=== PATIENT | female | born 1985 | race Hispanic/Latino ===

== ENCOUNTER 2018-06-16 13:51 | Emergency (ER) | payer SELFPAY ==
[~2018-06-16] VITALS: Ht 157.5 cm; Wt 89.8 kg
[2018-06-16] MEDS ORDERED: KETOROLAC TROMETHAMINE 30 MG/ML VIAL IV STA (14:29)
[2018-06-16] MEDS ORDERED: SODIUM CHLORIDE 0.9% 1000ML 1,000 ML IV STA (14:29)
[2018-06-16] MEDS ORDERED: DIPHENHYDRAMINE HCL INJ 50 MG/ML VIAL IV ONE (14:30)
[2018-06-16] MEDS ORDERED: FIORINAL 50-321 EACH PO (14:47)
[2018-06-16 14:51] LABS: BASOPHILS % 0.4 % (0.0-1.0); EOSINOPHILS # (AUTO) 0.2 (0.0-0.4); EOSINOPHILS % 2.6 % (0.0-6.0); HEMATOCRIT 34.8 % (34.2-44.1); HEMOGLOBIN 10.9 g/dL (12.0-16.0); LYMPHOCYTES # (AUTO) 2.5 (1.0-3.2); LYMPHOCYTES % 31.3 % (18.0-39.1); MEAN CORPUSCULAR HEMOGLOBIN 24.9 pg (28-32); MEAN CORPUSCULAR HGB CONC 31.3 g/dL (31-35); MEAN CORPUSCULAR VOLUME 79.5 fL (81-99); MONOCYTES # (AUTO) 0.4 (0.2-0.8); MONOCYTES % 4.8 % (4.4-11.3); NEUTROPHILS # (AUTO) 4.8 (2.1-6.9); NEUTROPHILS % 60.5 % (38.7-80.0); PLATELET COUNT 350 x10e3/uL (140-360); RED BLOOD COUNT 4.38 x10e6/uL (3.6-5.1); RED CELL DISTRIBUTION WIDTH 14.6 % (11.7-14.4)
[2018-06-16 15:05] LABS: CLARITY,URINE CLEAR (CLEAR); COLOR,URINE YELLOW (YELLOW)
[2018-06-16 15:06] LABS: BILIRUBIN,URINE NEGATIVE (NEGATIVE); KETONES,URINE NEGATIVE (NEGATIVE); LEUKOCYTE ESTERASE ,URINE NEGATIVE (NEGATIVE); NITRITE,URINE NEGATIVE (NEGATIVE); PROTEIN,URINE DIPSTICK NEGATIVE (NEGATIVE); URINE UROBILINOGEN 0.2 mg/dL (0.2 - 1)
[2018-06-16 15:09] LABS: BACTERIA,URINE FEW /HPF; EPITHELIAL CELLS,URINE FEW /LPF; WBC,URINE (MAN) 0-5 /HPF (0-5)
[2018-06-16 15:41] LABS: ANION GAP 7.9 mmol/L (8-16); BLOOD UREA NITROGEN 12 mg/dL (7-26); BUN/CREATININE RATIO 16 (6-25); CALCIUM 9.4 mg/dL (8.4-10.2); CARBON DIOXIDE 28 mmol/L (22-29); CHLORIDE 107 mmol/L (98-107); CREATININE, SERUM 0.73 mg/dL (0.57-1.11); EST GLOMERULAR FILTRATION RATE > 60 ML/MIN (60-); GLUCOSE 142 mg/dL (74-118); MAGNESIUM 1.7 MG/DL (1.3-2.1); POTASSIUM 3.9 mmol/L (3.5-5.1); SODIUM 139 mmol/L (136-145)
--- NOTE | 2018-06-16 15:45 | Diagnostic Imaging Report ---
History:Headaches Comparison studies: None Technique: Axial images were obtained from the skull base to the vertex. Coronal and sagittal reconstructions obtained from the axial data. Dose modulation, iterative reconstruction, and/or weight based adjustment of the mA/kV was utilized to reduce the radiation dose to as low as reasonably achievable. Findings: Scalp/skull: No abnormalities. No fractures, blastic or lytic lesions. Extra-axial spaces: No masses. No fluid collections. Brain sulci: Appropriate for age. Ventricles: Normal in size and configuration. No hydrocephalus. Parenchyma: No abnormal densities. No masses, hemorrhage, acute or chronic cortical vascular insults. Sellar/suprasellar region: No abnormalities Craniocervical junction: Patent foramen magnum. No Chiari one malformation. IMPRESSION: No abnormalities . Signed by: DR Ronen Bailey M.D. on 06/16/2018 3:42 PM
[2018-06-16] MEDS ORDERED: METFORMIN HCL500 MG PO (16:22)
--- OUTSIDE RECORDS SUMMARY | 2018-06-25 11:31 | XMS REPORT | CCD ---
Author Author Auto Generated Organization [facility] Address Unknown Phone Unavailable Care Team Providers Care Carpet Inspector Finished Name Role Phone Ac Sanders CP Allergies, Adverse Reactions, Alerts Substance Reaction Status Cipro Active erythromycin Active hydrocodone Active NKDA Canceled Phenergan Active Stadol Active Medications Medication Instructions Start Date End Date Status Saline Flush 0.9% 5 ml, Route: IVP, PRN, PRN Line 11/10/2011 11/10/2011 Discontinued Flush, Start date: 11/10/11 22:05:00, Duration: 24 hr, Stop date: 11/11/11 22:04:00 Ultram 50 mg oral 1 - 2 tabs, PO, Q4-6H, PRN, 30 tab, 11/10/2011 Ordered tablet as needed for pain, Substitution Allowed Ultram 50 mg oral 50 mg, 1 tab, Route: PO, Drug form: 11/10/2011 11/11/2011 Discontinued tablet TAB, Q4H, PRN Pain, Start date: 11/10/11 21:59:00, Duration: 30 day, Stop date: 12/10/11 21:58:00 DuoNeb inhalation 3 ml, Route: INHALATION, Drug Form: 11/10/2011 11/11/2011 Discontinued solution SOLN, QID, PRN See Respiratory Notes, Start date: 11/10/11 23:16:00, Duration: 30 day, Stop date: 12/10/11 23:15:00, once Motrin Route: PO, ONCE, Start date: 11/10/2011 11/10/2011 Completed 11/10/11 23:15:00, Stop date: 11/10/11 23:15:00 DuoNeb inhalation 3 ml, INHALATION, QID, PRN, 30 ea, 11/10/2011 Ordered solution as needed for shortness of breath or wheezing, Substitution Allowed, Maintenance, SOLN Vital Signs Most recent to oldest [Reference Range]: 1 Height 160.02 cm (11/10/2011 20:42:00) Weight 95.455 kg (11/10/2011 20:42:00)
--- OUTSIDE RECORDS SUMMARY | 2018-06-25 11:31 | XMS REPORT | Continuity of Care Document ---
Author Author Enma [facility] Interface Address Unknown Phone Unavailable Problems Problem Status Onset Date Classification Date Reported Comments Source Discharge Diagnosis: Acute chest pain 07/30/2017 08/02/2017 [facility] Discharge Diagnosis: Heart palpitations 07/30/2017 08/02/2017 [facility] ABD PAIN-11 WEEKS Active 10/24/2016 [facility] Discharge Diagnosis: Acute UTI 09/21/2016 09/24/2016 [facility] Discharge Diagnosis: Abdominal pain affecting 09/21/2016 09/24/2016 [facility] ABDOMINAL PAIN Active 09/21/2016 [facility] Discharge Diagnosis: First trimester bleeding 09/16/2016 09/19/2016 [facility] Discharge Diagnosis: Threatened miscarriage 09/16/2016 09/19/2016 [facility] OB 6 WKS/VAG BLEEDING Active 09/16/2016 [facility] Discharge Diagnosis: Hyperglycemia 07/13/2016 07/16/2016 [facility] Discharge Diagnosis: Atypical chest pain 07/13/2016 07/16/2016 [facility] Discharge Diagnosis: Acute lower UTI 07/13/2016 07/16/2016 [facility] Discharge Diagnosis: Dizziness 07/13/2016 07/16/2016 [facility] DIZZINESS Active 07/12/2016 [facility] Discharge Diagnosis: Chest pain 07/07/2016 07/10/2016 [facility] Discharge Diagnosis: Near syncope 07/07/2016 07/10/2016 [facility] Discharge Diagnosis: Anemia 07/07/2016 07/10/2016 [facility] Discharge Diagnosis: Acute hypokalemia 07/07/2016 07/10/2016 [facility] DIZZY/CHEST PAIN Active 07/07/2016 [facility] Discharge Diagnosis: Shortness of breath 06/19/2016 06/22/2016 [facility] ASTMAH Active 06/19/2016 [facility] Discharge Diagnosis: Anxiety 06/18/2016 06/21/2016 [facility] Discharge Diagnosis: Asthma 06/18/2016 06/21/2016 [facility] SHORTNESS OF BREATH Active 06/18/2016 [facility] Discharge Diagnosis: Urinary tract infection, site not specified 05/25/2016 05/28/2016 [facility] Discharge Diagnosis: UTI 04/20/2016 04/23/2016 [facility] Discharge Diagnosis: Heat exhaustion 04/20/2016 04/23/2016 [facility] Discharge Diagnosis: Dehydration 04/18/2016 04/22/2016 [facility] Discharge Diagnosis: Heat exhaustion, unspecified, initial encounter 04/18/2016 04/22/2016 [facility] HEAT EXHAUSTION Active 04/18/2016 [facility] ABD PAIN Active 03/21/2016 [facility] INTRACTABLE ABDOMINAL PAIN, GBW THICKENI Active 12/02/2015 [facility] STOMACH PAIN Active 12/02/2015 [facility] Discharge Diagnosis: Lower abdominal pain, unspecified 11/10/2015 11/13/2015 [facility] EXPOSURE Active 10/16/2015 [facility] PELVIC PAIN Active 10/06/2015 [facility] SOB Active 09/21/2015 [facility] Discharge Diagnosis: Acute lower UTI 06/11/2015 06/14/2015 [facility] Discharge Diagnosis: Pharyngitis, acute 05/14/2015 05/17/2015 [facility] FEVER Active 05/14/2015 [facility] Discharge Diagnosis: Abdominal pain 04/21/2015 04/24/2015 [facility] Discharge Diagnosis: Bacterial vaginosis 04/19/2015 04/22/2015 [facility] Discharge Diagnosis: Urinary tract infection 04/19/2015 04/22/2015 [facility] Discharge Diagnosis: Pelvic pain in female 04/19/2015 04/22/2015 [facility] SYMPTOMS/ECTOPIC PREG Active 04/18/2015 [facility] SYNCOPE Active 03/16/2015 [facility] Discharge Diagnosis: Acute pelvic pain, female 03/09/2015 03/13/2015 [facility] Discharge Diagnosis: Acute pelvic inflammatory disease 03/09/2015 03/13/2015 [facility] Discharge Diagnosis: Dizziness 03/09/2015 03/13/2015 [facility] Discharge Diagnosis: Acute back pain 11/04/2014 11/06/2014 [facility] Discharge Diagnosis: Nausea 11/04/2014 11/06/2014 [facility] Discharge Diagnosis: UTI 10/30/2014 11/01/2014 [facility] Discharge Diagnosis: Diarrhea 10/30/2014 11/01/2014 [facility] DIARRHEA Active 10/30/2014 [facility] Discharge Diagnosis: Near syncope 06/23/2014 06/26/2014 [facility] Discharge Diagnosis: Acute lower UTI 06/23/2014 06/26/2014 [facility] Discharge Diagnosis: Acute otitis externa 06/23/2014 06/26/2014 [facility] WEAKNESS/CHEST PAIN Active 06/23/2014 [facility] Discharge Diagnosis: Asthma exacerbation 06/10/2014 06/13/2014 [facility] Discharge Diagnosis: Upper respiratory infection 06/10/2014 06/13/2014 [facility] DIFFICULTY BREATHING Active 06/10/2014 [facility] ABD PAIN/ LOWER BACK PAIN Active 07/08/2012 [facility] RIGHT SIDEPAIN Active 04/22/2012 [facility] ABD PAIN-LOWER Active 04/16/2012 [facility] OVARIAN CYST Active 04/15/2012 [facility] ADBOMINAL PAIN Active 10/15/2011 [facility] TROUBLE BREATHING Active 08/02/2011 [facility] Ectopic Resolved Problem 10/27/2016 [facility] Asthma Active Problem 08/02/2017 [facility] Bronchitis Resolved Problem 08/02/2017 [facility] Diabetes Resolved Problem 08/02/2017 [facility] Diverticulosis Resolved Problem 08/02/2017 [facility] Ectopic Resolved Problem 08/02/2017 [facility] Depression Resolved Problem 08/02/2017 [facility] Obesity Active Problem 12/10/2015 [facility] Asthma Active Problem 12/10/2015 [facility] Type 2 diabetes mellitus without complications Active Problem 12/10/2015 [facility] Fatty liver Active Problem 12/10/2015 [facility] GENERALIZED ABDOMINAL PAIN Active [facility] Medications Medication Details Route Status Patient Instructions Ordering Provider Order Date Source ferrous sulfate 325 mg, 1 tab, Route: PO, Drug form: ECTAB, TID, Dosing Weight 90, kg, Start date: 07/31/17 9:00:00 [employer], Duration: 30 day, Stop date: 08/30/17 8:59:00 CSTNotes: Give with food. "Do Not Crush" No Longer Active 07/31/2017 [facility] Aspirin 325 MG Enteric Coated Tablet 325 mg, 1 tab, Route: PO, Drug form: ECTAB, Daily, Dosing Weight 90, kg, Start date: 07/31/17 9:00:00 [employer]IST, Duration: 30 day, Stop date: 08/30/17 8:59:00 CSTNotes: (Do Not Crush) Do not crush or chew. No Longer Active 07/31/2017 [facility] Metformin 500 mg, 1 tab, Route: PO, Drug form: TAB, Daily, Dosing Weight 90, kg, Start date: 07/31/17 9:00:00 [employer]IST, Duration: 30 day, Stop date: 08/30/17 8:59:00 CSTNotes: (Same as: Glucophage) Take with meal No Longer Active 07/31/2017 [facility] Saline Flush 0.9% 10 ml, Route: IVP, Drug Form: INJ, Dosing Weight 90, kg, Q12H, Start date: 07/30/17 21:00:00 [employer]IST, Duration: 30 day, Stop date: 08/29/17 20:59:00 CSTNotes: (Same as: BD Posiflush) Inactive 07/31/2017 [facility] Alprazolam 0.25 MG Oral Tablet [Xanax] 0.25 mg, 1 tab, Route: PO, Drug form: TAB, TID, Dosing Weight 90, kg, PRN Anxiety, Start date: 07/30/17 17:54:00 [employer]IST, Duration: 30 day, Stop date: 08/29/17 17:53:00 CSTNotes: With food or milk (Same as: Xanax) Inactive 07/30/2017 [facility] Insulin Lispro 4 unit, 0.04 mL, Route: SUB-Q, Drug form: SOLN, Bedtime, Dosing Weight 90, kg, PRN Blood Glucose Results, Start date: 07/30/17 12:09:00 [employer]IST, Duration: 30 day, Stop date: 08/29/17 12:08:00 CSTNotes: Roll in palms of hands gently; Do not shake `vigorously. (Same as: Humalog ) "Single Patient Use Only " WASTE: F/P - Black; E - Municipal Trash Bin Stable for 28 days at room temperature. Expires in days from Date Inactive 07/30/2017 [facility] Glucagon 1 mg, Route: IM, Drug form: PDR/INJ, PRN, Dosing Weight 90, kg, PRN Blood Glucose Results, Start date: 07/30/17 12:09:00 [employer]IST, Duration: 30 day, Stop date: 08/29/17 12:08:00 MARK[employer] SPECIALIST Inactive 07/30/2017 [facility] Dextrose 50% Syringe 25 gm, 50 mL, Route: IVP, Drug Form: INJ, Dosing Weight 90, kg, PRN, PRN Blood Glucose Results, Start date: 07/30/17 12:09:00 [employer]IST, Duration: 30 day, Stop date: 08/29/17 12:08:00 MARK[employer]ING [employer]PERATIONS SPECIALIST Inactive 07/30/2017 [facility] Saline Flush 0.9% 10 ml, Route: IVP, Drug Form: INJ, Dosing Weight 90, kg, PRN, PRN Line Flush, Start date: 07/30/17 11:57:00 MARK[employer] SPECIALIST, Duration: 30 day, Stop date: 08/29/17 11:56:00 CSTNotes: (Same as: BD Posiflush) Inactive 07/30/2017 [facility] Morphine 2 mg, 0.5 mL, Route: IVP, Drug form: SOLN, Q15Min, Dosing Weight 90, kg, PRN Chest Pain, Start date: 07/30/17 11:57:00 [employer]IST, Duration: 2 doses or times, Stop date: Limited # of timesNotes: (Same as:MO RPhine Sulfate) Inactive 07/30/2017 [facility] Nitroglycerin 0.4 mg, 1 tab, Route: SL, Drug form: TAB, Q5Min, Dosing Weight 90, kg, PRN Chest Pain, Start date: 07/30/17 11:57:00 [employer]IST, Duration: 3 doses or times, Stop date: Limited # of timesNotes: (Same as:Nitr oquick, Nitrostat) "Do Not Crush" Sublingual tablet Inactive 07/30/2017 [facility] Ondansetron 4 mg, 2 mL, Route: IVP, Drug form: INJ, Q8H, Dosing Weight 90, kg, PRN Nausea & Vomiting, Start date: 07/30/17 11:57:00 [employer]IST, Duration: 30 day, Stop date: 08/29/17 11:56:00 CSTNotes: (Same as: Zofran) MEDICATION WASTE Product Size: 4 mg Product Wasted: _0__ mg Inactive 07/30/2017 [facility] BD Normal Saline Flush 25 mL, Route: IV, Drug Form: INJ, PRN, PRN Line Flush, Start date: 07/30/17 9:18:00 [employer]IST, Duration: 30 day, Stop date: 08/29/17 9:17:00 CSTNotes: (Same as: BD Posiflush) Inactive 07/30/2017 [facility] Saline Flush 0.9% 10 mL, Route: IVP, Drug Form: INJ, Dosing Weight 90, kg, PRN, PRN Line Flush, Start date: 07/30/17 9:11:00 MARK[employer]ING [employer]ATIONS SPECIALIST, Duration: 30 day, Stop date: 08/29/17 9:10:00 CSTNotes: (Same as: BD Posiflush) Inactive 07/30/2017 [facility] Sodium Chloride 0.9% (Bolus) IV 1,000 mL, 1000 ml/hr, Infuse Over: 1 hr, Route: IV, 1,000, Drug form: INJ, ONCE, Priority: STAT, Dosing Weight 90 kg, Start date: 07/30/17 9:11:00 MARK[employer]ATIONS SPECIALIST, Stop date: 07/30/17 9:11:00 MARK[employer]ING [employer]PERATIONS SPECIALIST Inactive 07/30/2017 [facility] Saline Flush 0.9% 10 mL, Route: IVP, Drug Form: INJ, Dosing Weight 97.727, kg, PRN, PRN Line Flush, Start date: 10/24/16 0:48:00 MARK[employer] SPECIALIST, Duration: 30 day, Stop date: 11/23/16 1:47:00 CDTNotes: (Same as: BD Posiflush) Inactive 10/24/2016 [facility] Tylenol 650 mg, 2 tab, Route: PO, Drug form: TAB, ONCE, Dosing Weight 93.636, kg, Priority: STAT, Start date: 09/21/16 14:28:00 MARK[employer]ATIONS SPECIALIST, Stop date: 09/21/16 14:28:00 CSTNotes: Do not exceed 4 gm/day. (Same as: Tylenol) Inactive 09/21/2016 [facility] Ceftriaxone 1 gm, Route: IVPB, ONCE, Dosing Weight 93.636, kg, Priority: STAT, Start date: 09/21/16 13:46:00 MARK[employer] SPECIALIST, Stop date: 09/21/16 13:46:00 CSTNotes: (Same As: Rocephin). Use with 100 mL NS and infuse over 30 m in MEDICATION WASTE Product Size: 1000 mg Product Wasted: ___ mg Inactive 09/21/2016 [facility] Albuterol 0.833 MG/ML / Ipratropium [place]wood 0.167 MG/ML Inhalant Solution 3 mL, Route: NEB, Drug Form: SOLN, Dosing Weight 93.636, kg, ONCE, STAT, Start date: 09/21/16 12:44:00 MARKETING [employer]PERATIONS SPECIALIST, Stop date: 09/21/16 12:44:00 CSTNotes: (Same as: Duoneb) Inactive 09/21/2016 [facility] Sodium Chloride 0.154 MEQ/ML Injectable Solution 1,000 mL, 1,000 ml/hr, Infuse Over: 1 hr, Route: IV, 1,000, Drug form: INJ, ONCE, Priority: STAT, Dosing Weight 93.636 kg, Start date: 09/21/16 12:43:00 MARKETING [employer]PERATIONS SPECIALIST, Duration: 1 doses or times, Stop date: 09/21/16 12:43:00 MARKETING OPERATIONS SPECIALIST Inactive 09/21/2016 [facility] Saline Flush 0.9% 10 mL, Route: IVP, Drug Form: INJ, Dosing Weight 93.636, kg, PRN, PRN Line Flush, Start date: 09/21/16 12:43:00 MARKETING [employer]PERATIONS SPECIALIST, Duration: 30 day, Stop date: 10/21/16 12:42:00 CSTNotes: (Same as: BD Posiflush) Inactive 09/21/2016 [facility] Cephalexin 500 MG Oral Capsule [Keflex] 500 mg=1 cap, PO, BID, X 7 day, # 14 cap, 0 Refill(s) Active 09/16/2016 [facility] Sodium Chloride 0.154 MEQ/ML Injectable Solution 1,000 mL, Infuse Over: 1 hr, Route: IV, ONCE, Priority: STAT, Dosing Weight 94.545 kg, Start date: 09/16/16 15:41:00 [employer]ATIONS SPECIALIST, Duration: 1 doses or times, Stop date: 09/16/16 15:41:00 MARKETING [employer]PERATIONS SPECIALIST Inactive 09/16/2016 [facility] Nitrofurantoin 100 MG Oral Capsule [Macrobid] 100 mg=1 cap, PO, BID, X 3 day, # 6 cap, 0 Refill(s) Active 07/13/2016 [facility] Ativan 0.5 mg, Route: IVP, Drug form: INJ, ONCE, Dosing Weight 97.727, kg, Priority: STAT, Start date: 07/13/16 1:39:00 CDT, Stop date: 07/13/16 1:39:00 CDT Inactive 07/13/2016 [facility] Sodium Chloride 0.154 MEQ/ML Injectable Solution 1,000 mL, 2,000 ml/hr, Infuse Over: 30 minutes, Route: IV, ONCE, Priority: STAT, Dosing Weight 97.727 kg, Start date: 07/13/16 1:39:00 CDT, Duration: 1 doses or times, Stop date: 07/13/16 1:39:00 CDT Inactive 07/13/2016 [facility] Saline Flush 0.9% 10 mL, Route: IVP, Drug Form: INJ, Dosing Weight 97.727, kg, PRN, PRN Line Flush, Start date: 07/12/16 23:59:00 CDT, Duration: 30 day, Stop date: 08/11/16 22:58:00 CSTNotes: (Same as: BD Posiflush) No Longer Active 07/13/2016 [facility] ferrous sulfate 325 mg oral enteric coated tablet 325 mg=1 tab, PO, TID, Start with 1 tab daily x 3 days, advance as tolerate, use stool softners and laxatives as needed for constipation, # 90 tab, 3 Refill(s) Active 07/07/2016 [facility] Sodium Chloride 0.154 MEQ/ML Injectable Solution 500 mL, 500 ml/hr, Infuse Over: 1 hr, Route: IV, ONCE, Priority: STAT, Dosing Weight 97.727 kg, Start date: 07/07/16 17:55:00 CDT, Duration: 1 doses or times, Stop date: 07/07/16 17:55:00 CDT Inactive 07/07/2016 [facility] potassium chloride 40 mEq, Route: PO, Drug form: ERTAB, ONCE, Dosing Weight 97.727, kg, Priority: STAT, Start date: 07/07/16 17:47:00 CDT, Stop date: 07/07/16 17:47:00 CDT Inactive 07/07/2016 [facility] Saline Flush 0.9% 10 mL, Route: IVP, Drug Form: INJ, Dosing Weight 97.727, kg, PRN, PRN Line Flush, Start date: 07/07/16 16:52:00 CDT, Duration: 30 day, Stop date: 08/06/16 15:51:00 CSTNotes: (Same as: BD Posiflush) Inactive 07/07/2016 [facility] Albuterol 0.833 MG/ML / Ipratropium [place] 0.167 MG/ML Inhalant Solution 3 mL, Route: NEB, Drug Form: SOLN, Dosing Weight 97.727, kg, ONCE, STAT, Start date: 06/19/16 19:22:00 CDT, Stop date: 06/19/16 19:22:00 CDTNotes: (Same as: Duoneb) Inactive 06/20/2016 [facility] Albuterol 0.833 MG/ML / Ipratropium [place]wood 0.167 MG/ML Inhalant Solution [DuoNeb] 3 ml, Route: NEB, Drug Form: SOLN, Dosing Weight 97.727, kg, PRN, PRN Respiratory Protocol, Start date: 06/19/16 15:29:00 CDT, Duration: 30 day, Stop date: 07/19/16 14:28:00 CSTNotes: (Same as: Duoneb) Inactive 06/19/2016 [facility] Albuterol 0.833 MG/ML / Ipratropium [place]wood 0.167 MG/ML Inhalant Solution 3 mL, Route: NEB, Drug Form: SOLN, Dosing Weight 97.727, kg, ONCE, STAT, Start date: 06/18/16 21:39:00 CDT, Stop date: 06/18/16 21:39:00 CDTNotes: (Same as: Duoneb) Inactive 06/19/2016 [facility] Saline Flush 0.9% 10 mL, Route: IVP, Drug Form: INJ, Dosing Weight 97.727, kg, PRN, PRN Line Flush, Start date: 06/18/16 20:18:00 CDT, Duration: 30 day, Stop date: 07/18/16 19:17:00 CSTNotes: (Same as: BD Posiflush) No Longer Active 06/19/2016 [facility] Nitrofurantoin 100 MG Oral Capsule [Macrobid] 100 mg=1 cap, PO, BID, X 10 day, # 20 cap, 0 Refill(s) Active 05/25/2016 [facility] Zofran 4 mg, Route: IVP, Drug form: INJ, ONCE, Dosing Weight 97.727, kg, Priority: STAT, Start date: 05/25/16 8:36:00 CDT, Stop date: 05/25/16 8:36:00 CDT Inactive 05/25/2016 [facility] Sodium Chloride 0.154 MEQ/ML Injectable Solution 1,000 mL, 1,000 ml/hr, Infuse Over: 1 hr, Route: IV, ONCE, Priority: STAT, Dosing Weight 97.727 kg, Start date: 05/25/16 8:07:00 CDT, Duration: 1 doses or times, Stop date: 05/25/16 8:07:00 CDT Inactive 05/25/2016 [facility] Cephalexin 500 MG Oral Capsule [Keflex] 500 mg=1 cap, PO, BID, X 7 day, # 14 cap, 0 Refill(s) Active 04/20/2016 [facility] Sodium Chloride 0.154 MEQ/ML Injectable Solution 1,000 mL, 2,000 ml/hr, Infuse Over: 30 minutes, Route: IV, ONCE, Priority: STAT, Dosing Weight 100 kg, Start date: 04/20/16 3:26:00 CDT, Duration: 1 doses or times, Stop date: 04/20/16 3:26:00 CDT Inactive 04/20/2016 [facility] Zofran 4 mg, Route: IVP, Drug form: INJ, ONCE, Dosing Weight 100, kg, Priority: STAT, Start date: 04/20/16 2:43:00 CDT, Stop date: 04/20/16 2:43:00 CDT Inactive 04/20/2016 [facility] Sodium Chloride 0.154 MEQ/ML Injectable Solution 1,000 mL, 2,000 ml/hr, Infuse Over: 30 minutes, Route: IV, ONCE, Priority: STAT, Dosing Weight 100 kg, Start date: 04/20/16 2:26:00 CDT, Duration: 1 doses or times, Stop date: 04/20/16 2:26:00 CDT Inactive 04/20/2016 [facility] Ondansetron 4 mg, 2 mL, Route: IVP, Drug form: INJ, ONCE, Dosing Weight 97.727, kg, Priority: STAT, Start date: 04/18/16 19:46:00 CDT, Stop date: 04/18/16 19:46:00 CDTNotes: (Same as: Zofran) MEDICATION WASTE Product Size: 4 mg Product Wasted: __0_ mg Inactive 04/19/2016 [facility] Saline Flush 0.9% 10 mL, Route: IVP, Drug Form: INJ, Dosing Weight 97.727, kg, PRN, PRN Line Flush, Start date: 04/18/16 19:46:00 CDT, Duration: 30 day, Stop date: 05/18/16 19:45:00 CDTNotes: (Same as: BD Posiflush) No Longer Active 04/19/2016 [facility] Sodium Chloride 0.154 MEQ/ML Injectable Solution 1,000 mL, 1000 ml/hr, Infuse Over: 1 hr, Route: IV, 1,000, Drug form: INJ, ONCE, Priority: STAT, Dosing Weight 97.727 kg, Start date: 04/18/16 19:46:00 CDT, Duration: 1 doses or times, Stop date: 04/18/16 19:46:00 CDT Inactive 04/19/2016 [facility] cephalexin 500 mg oral tablet 500 mg=1 tab, PO, TID, X 14 day, # 42 tab, 0 Refill(s) Active 03/22/2016 [facility] Ondansetron 4 MG Disintegrating Tablet [Zofran] 4 mg=1 tab, PO, Q8H, PRN Nausea and Vomiting, Dissolve tab under tongue, X 5 day, # 15 tab, 0 Refill(s) Active 03/22/2016 [facility] Tylenol 650 mg, 2 tab, Route: PO, Drug form: TAB, ONCE, Dosing Weight 97.727, kg, Priority: STAT, Start date: 03/21/16 17:37:00 CDT, Stop date: 03/21/16 17:37:00 CDTNotes: Do not exceed 4 gm/day. (Same as: Tylenol) Inactive 03/21/2016 [facility] Rocephin 1 gm, Route: IVPB, ONCE, Dosing Weight 97.727, kg, Priority: STAT, Start date: 03/21/16 17:37:00 CDT, Stop date: 03/21/16 17:37:00 CDTNotes: (Same As: Rocephin). Use with 100 mL NS and infuse over 30 m in MEDICATION WASTE Product Size: 1000 mg Product Wasted: _0_ mg Inactive 03/21/2016 [facility] Saline Flush 0.9% 10 mL, Route: IVP, Drug Form: INJ, Dosing Weight 94.091, kg, PRN, PRN Line Flush, Start date: 03/21/16 15:17:00 CDT, Duration: 30 day, Stop date: 04/20/16 15:16:00 CDTNotes: (Same as: BD Posiflush) Inactive 03/21/2016 [facility] Sodium Chloride 0.154 MEQ/ML Injectable Solution 1,000 mL, 2,000 ml/hr, Infuse Over: 30 minutes, Route: IV, 1,000, Drug form: INJ, ONCE, Priority: STAT, Dosing Weight 94.091 kg, Start date: 03/21/16 15:17:00 CDT, Duration: 1 doses or times, Stop date: 03/21/16 15:17:00 CDT Inactive 03/21/2016 [facility] Protonix 40 mg, 1 tab, Route: PO, Drug form: ECTAB, Daily, Start date: 12/05/15 9:00:00, Duration: 30 day, Stop date: 01/03/16 9:00:00Notes: Tablet should not be chewed or crushed. (Same as: Protonix) Inactive 12/05/2015 [facility] Acetaminophen 300 MG / Codeine Phosphate 60 MG Oral Tablet [Tylenol with Codeine #4] 1 tab, PO, Q6H, PRN pain, X 7 day, # 28 tab, 0 Refill(s) Active 12/04/2015 [facility] Metformin hydrochloride 500 MG Oral Tablet 500 mg, 1 tab, Route: PO, Drug form: TAB, Daily, Dosing Weight 94.091, kg, Start date: 12/04/15 9:00:00, Duration: 30 day, Stop date: 01/02/16 9:00:00Notes: (Same as: Glucophage) Take with meal No Longer Active 12/04/2015 [facility] Albuterol 0.833 MG/ML / Ipratropium [place]wood 0.167 MG/ML Inhalant Solution 3 mL, Route: NEB, Drug Form: SOLN, Dosing Weight 94.091, kg, RQID, Start date: 12/04/15 8:53:00, Duration: 30 day, Stop date: 01/03/16 7:00:00Notes: (Same as: Duoneb) No Longer Active 12/04/2015 [facility] Zofran 4 mg, 2 mL, Route: IV, Drug form: INJ, Q6H, Dosing Weight 94.091, kg, PRN as needed for nausea/vomiting, Start date: 12/04/15 8:53:00, Duration: 30 day, Stop date: 01/03/16 8:52:00Notes: (Same as: Zofran) MEDICATION WASTE Product Size: 4 mg Product Wasted: ___ mg No Longer Active 12/04/2015 [facility] Zosyn 3.375 gm, Route: IVPB, ABXQ8H, Dosing Weight 94.091, kg, Start date: 12/04/15 1:00:00, Duration: 30 day, Stop date: 01/02/16 17:00:00Notes: (Same as: Zosyn) Dosing based on Piperacillin component MEDICATION WASTE Product Size: 3375 mg Product Wasted: ___ mg No Longer Active 12/04/2015 [facility] Saline Flush 0.9% 10 ml, Route: IVP, Drug Form: INJ, Dosing Weight 94.091, kg, PRN, PRN Line Flush, Start date: 12/03/15 23:53:00, Duration: 30 day, Stop date: 01/02/16 23:52:00Notes: (Same as: BD Posiflush) No Longer Active 12/04/2015 [facility] Sodium Chloride 0.154 MEQ/ML Injectable Solution 1,000 mL, Rate: 125 ml/hr, Infuse over: 8 hr, Route: IV, Dosing Weight 94.091 kg, Total Volume: 1,000, Start date: 12/03/15 23:53:00, Duration: 30 day, Stop date: 01/02/16 23:52:00 No Longer Active 12/04/2015 [facility] Morphine 4 mg, 2 mL, Route: IVP, Drug form: INJ, Q4H, Dosing Weight 95.455, kg, PRN Pain Score 7-10, Start date: 12/03/15 23:53:00, Duration: 30 day, Stop date: 01/02/16 23:52:00Notes: (Same as:MORPhine Sulfate) No Longer Active 12/04/2015 [facility] Ondansetron 4 mg, 2 mL, Route: IVP, Drug form: INJ, Q6H, Dosing Weight 94.091, kg, PRN Nausea & Vomiting, Start date: 12/03/15 23:53:00, Duration: 30 day, Stop date: 01/02/16 23:52:00Notes: (Same as: Zofran) MEDICATION WASTE Product Size: 4 mg Product Wasted: ___ mg No Longer Active 12/04/2015 [facility] Diphenhydramine 12.5 mg, 0.25 mL, Route: IVP, Drug form: INJ, Q6H, Dosing Weight 94.091, kg, PRN Itching, Start date: 12/03/15 22:06:00, Duration: 30 day, Stop date: 01/02/16 22:05:00Notes: (Same as: Benadryl) Inactive 12/04/2015 [facility] Ondansetron 4 mg, 2 mL, Route: IVP, Drug form: INJ, ONCE, Dosing Weight 94.091, kg, PRN Nausea & Vomiting, Start date: 12/03/15 22:06:00Notes: (Same as: Zofran) MEDICATION WASTE Product Size: 4 mg Product Wasted: ___ mg Inactive 12/04/2015 [facility] Promethazine 6.25 mg, Route: IVPB, ONCE, Dosing Weight 94.091, kg, PRN Nausea & Vomiting, Start date: 12/03/15 22:06:00 Inactive 12/04/2015 [facility] Oxycodone 10 mg, 2 tab, Route: PO, Drug form: TAB, Q4H, Dosing Weight 94.091, kg, PRN Pain Score 7-10, Start date: 12/03/15 22:06:00, Duration: 30 day, Stop date: 01/02/16 22:05:00Notes: (Same as: Roxicodone) Inactive 12/04/2015 [facility] Hydromorphone 0.5 mg, 0.5 mL, Route: IVP, Drug form: INJ, Q5Min, Dosing Weight 94.091, kg, PRN Pain Score 7-10, Start date: 12/03/15 22:06:00, Duration: 4 doses or times, Stop date: Limited # of times Inactive 12/04/2015 [facility] Fentanyl 25 microgram, 0.5 mL, Route: IVP, Drug form: INJ, Q5Min, Dosing Weight 94.091, kg, PRN Pain Score 4-6, Start date: 12/03/15 22:06:00, Duration: 4 doses or times, Stop date: Limited # of timesNotes: (Same as: Sublimaze) Preservative free. Inactive 12/04/2015 [facility] Meperidine 12.5 mg, 0.25 mL, Route: IVP, Drug form: INJ, Q30Min, Dosing Weight 94.091, kg, PRN Other -See Comment, For shivering, Start date: 12/03/15 22:06:00, Duration: 2 doses or times, Stop date: Limited # of timesNotes: (Same As: Demerol) Inactive 12/04/2015 [facility] Flumazenil 0.2 mg, 2 mL, Route: IVP, Drug form: INJ, PRN, Dosing Weight 94.091, kg, PRN Benzodiazepine Reversal, Initial dose, Start date: 12/03/15 22:06:00, Duration: 30 day, Stop date: 01/02/16 22:05:00Notes: (Same as: Romazicon) Inactive 12/04/2015 [facility] Naloxone 0.04 mg, 0.1 mL, Route: IVP, Drug form: INJ, Q2MIN, Dosing Weight 94.091, kg, PRN Narcotic Reversal, Start date: 12/03/15 22:06:00, Duration: 8 doses or times, Stop date: Limited # of timesNotes: Same as Narcan Inactive 12/04/2015 [facility] Albuterol 0.83 MG/ML Inhalant Solution 2.49 mg, 3 mL, Route: NEB, Drug form: SOLN, Q20Min, Dosing Weight 94.091, kg, PRN Wheezing, Priority: STAT, Start date: 12/03/15 22:06:00, Duration: 30 day, Stop date: 01/02/16 22:05:00Notes: SEE RT DOCUMENTATION (Same as: Proventil) Inactive 12/04/2015 [facility] Hydromorphone 1 mg, 1 mL, Route: IVP, Drug form: INJ, Q3H, Dosing Weight 94.091, kg, PRN Pain Score 4-6, Start date: 12/03/15 22:03:00, Duration: 30 day, Stop date: 01/02/16 22:02:00 No Longer Active 12/04/2015 [facility] Morphine 2 mg, 1 mL, Route: IVP, Drug form: INJ, Q3H, Dosing Weight 94.091, kg, PRN Pain Score 1-3, Start date: 12/03/15 22:03:00, Duration: 30 day, Stop date: 01/02/16 22:02:00Notes: (Same as:MORPhine Sulfate) No Longer Active 12/04/2015 [facility] acetaminophen-codeine #3 1 tab, Route: PO, Drug Form: TAB, Dosing Weight 94.091, kg, Q4H, PRN Pain Score 4-6, Start date: 12/03/15 22:03:00, Duration: 30 day, Stop date: 01/02/16 22:02:00Notes: Do not exceed 4gm/day of acetaminophen. (Same as: Tylenol with Codeine # 3) No Longer Active 12/04/2015 [facility] Ondansetron 4 mg, 2 mL, Route: IVP, Drug form: INJ, Q6H, Dosing Weight 94.091, kg, PRN Nausea & Vomiting, Start date: 12/03/15 22:03:00, Duration: 30 day, Stop date: 01/02/16 22:02:00Notes: (Same as: Zofran) MEDICATION WASTE Product Size: 4 mg Product Wasted: ___ mg No Longer Active 12/04/2015 [facility] Calcium Chloride 0.0014 MEQ/ML / Potassium Chloride 0.004 MEQ/ML / Sodium Chloride 0.103 MEQ/ML / Sodium Lactate 0.028 MEQ/ML Injectable Solution 1,000 mL, Rate: 75 ml/hr, Infuse over: 13.3 hr, Route: IV, Dosing Weight 94.091 kg, Total Volume: 1,000, Start date: 12/03/15 22:03:00, Duration: 30 day, Stop date: 01/02/16 22:02:00 No Longer Active 12/04/2015 [facility] dexamethasone (ANES) Route: IV, Drug form: INJ, ONCE, Stop date: 12/03/15 21:53:00 Inactive 12/04/2015 [facility] hydromorphone (ANES) Route: IV, Drug form: INJ, ONCE, Stop date: 12/03/15 21:53:00 Inactive 12/04/2015 [facility] neostigmine (ANES) Route: IV, Drug form: INJ, ONCE, Stop date: 12/03/15 21:53:00 Inactive 12/04/2015 [facility] ceFAZolin (ANES) Route: IV, Drug form: INJ, ONCE, Stop date: 12/03/15 21:53:00 Inactive 12/04/2015 [facility] rocuronium (ANES) Route: IV, Drug form: INJ, ONCE, Stop date: 12/03/15 21:53:00 Inactive 12/04/2015 [facility] acetaminophen (ANES) (ANES) Route: IV, Drug form: INJ, Start date: 12/03/15 21:36:00, Stop date: 12/03/15 22:36:00 Inactive 12/04/2015 [facility] midazolam (ANES) Route: IV, Drug form: SOLN, ONCE, Stop date: 12/03/15 21:22:00 Inactive 12/04/2015 [facility] lidocaine (ANES) Route: IV, Drug form: INJ, ONCE, Stop date: 12/03/15 21:22:00 Inactive 12/04/2015 [facility] fentaNYL (ANES) Route: IV, Drug form: INJ, ONCE, Stop date: 12/03/15 21:22:00 Inactive 12/04/2015 [facility] glycopyrrolate (ANES) Route: IV, Drug form: INJ, ONCE, Stop date: 12/03/15 21:22:00 Inactive 12/04/2015 [facility] acetaminophen (ANES) Route: IV, Drug form: INJ, ONCE, Stop date: 12/03/15 21:22:00 Inactive 12/04/2015 [facility] ondansetron (ANES) Route: IV, Drug form: INJ, ONCE, Stop date: 12/03/15 21:22:00 Inactive 12/04/2015 [facility] neostigmine (ANES) Route: IV, Drug form: INJ, ONCE, Stop date: 12/03/15 21:22:00 Inactive 12/04/2015 [facility] propofol (ANES) Route: IV, Drug form: INJ, ONCE, Stop date: 12/03/15 21:22:00 Inactive 12/04/2015 [facility] Lactated Ringers Injection IV (ANES) (ANES) Route: IV, Total Volume: 1,000, Start date: 12/03/15 20:47:00, Stop date: 12/03/15 21:47:00 Inactive 12/04/2015 [facility] Xopenex 0.63 mg, Route: NEB, ONCE, Dosing Weight 95, kg, PRN Respiratory Protocol, Start date: 12/03/15 13:56:00, Stop date: 01/02/16 13:55:00 Inactive 12/03/2015 [facility] Protonix 40 mg, Route: IV, Drug form: INJ, Daily, Dosing Weight 95.455, kg, Start date: 12/03/15 9:00:00, Duration: 30 day, Stop date: 01/01/16 9:00:00Notes: For IV push reconstitute with 10 ml 0.9% sodium chloride and push over 2 minutes. (Same as: Protonix) No Longer Active 12/03/2015 [facility] 200 ACTUAT Albuterol 0.09 MG/ACTUAT Metered Dose Inhaler [Proventil] 2 puff, INHALER, Q4H, PRN wheezing, coughing, or shortness of breath, # 1 ea, 1 Refill(s) Active 12/03/2015 [facility] Metformin 500 mg, PO, Daily, 0 Refill(s) Active 12/03/2015 [facility] Morphine 2 mg, 1 mL, Route: IVP, Drug form: INJ, Q4H, Dosing Weight 95.455, kg, PRN Pain Score 7-10, Start date: 12/02/15 17:14:00, Duration: 30 day, Stop date: 01/01/16 17:13:00Notes: (Same as:MORPhine Sulfate) No Longer Active 12/02/2015 [facility] Ondansetron 4 mg, 2 mL, Route: IVP, Drug form: INJ, Q6H, Dosing Weight 95.455, kg, PRN Nausea & Vomiting, Start date: 12/02/15 17:14:00, Duration: 30 day, Stop date: 01/01/16 17:13:00Notes: (Same as: Zoan) MEDICATION WASTE Product Size: 4 mg Product Wasted: ___ mg No Longer Active 12/02/2015 [facility] Saline Flush 0.9% 10 ml, Route: IVP, Drug Form: INJ, Dosing Weight 95.455, kg, PRN, PRN Line Flush, Start date: 12/02/15 17:14:00, Duration: 30 day, Stop date: 01/01/16 17:13:00Notes: (Same as: BD Posiflush) No Longer Active 12/02/2015 [facility] Sodium Chloride 0.154 MEQ/ML Injectable Solution 1,000 mL, Rate: 100 ml/hr, Infuse over: 10 hr, Route: IV, Dosing Weight 95.455 kg, Total Volume: 1,000, Start date: 12/02/15 17:14:00, Duration: 30 day, Stop date: 01/01/16 17:13:00 No Longer Active 12/02/2015 [facility] naproxen 500 mg oral tablet 500 mg, PO, BID, PRN Pain, # 30 tab, 0 Refill(s) Active 11/10/2015 [facility] Sulfamethoxazole 800 MG / Trimethoprim 160 MG Oral Tablet [Bactrim] 1 tab, PO, BID, X 7 day, # 14 tab, 0 Refill(s) Active 11/10/2015 [facility] Sodium Chloride 0.154 MEQ/ML Injectable Solution 1,000 mL, 1000 ml/hr, Infuse Over: 1 hr, Route: IV, 1,000, Drug form: INJ, ONCE, Priority: STAT, Dosing Weight 97.727 kg, Start date: 11/10/15 1:54:00, Duration: 1 doses or times, Stop date: 11/10/15 1:54:00 Inactive 11/10/2015 [facility] Rocephin 1 gm, Route: IVPB, ONCE, Dosing Weight 97.727, kg, Priority: STAT, Start date: 11/10/15 1:54:00, Stop date: 11/10/15 1:54:00Notes: (Same As: Rocephin). Use with 100 mL NS and infuse over 30 min MEDICATION WASTE Product Size: 1000 mg Product Wasted: ___ mg Inactive 11/10/2015 [facility] Saline Flush 0.9% 10 mL, Route: IVP, Drug Form: INJ, Dosing Weight 97.727, kg, PRN, PRN Line Flush, Start date: 11/09/15 22:53:00, Duration: 30 day, Stop date: 12/09/15 23:52:00Notes: (Same as: BD Posiflush) No Longer Active 11/10/2015 [facility] Sulfamethoxazole 800 MG / Trimethoprim 160 MG Oral Tablet [Bactrim] 1 tab, PO, BID, for UTI, X 3 day, # 6 tab, 0 Refill(s)Special Instructions: for UTI Active 06/11/2015 [facility] Sodium Chloride 0.154 MEQ/ML Injectable Solution 1,000 mL, 100 ml/hr, Infuse Over: 1 Hour, Route: IV, ONCE, Dosing Weight 95.455 kg, Start date: 06/10/15 22:48:00, Stop date: 06/10/15 22:48:00 Inactive 06/11/2015 [facility] Acetaminophen 650 mg, Route: MA, ONCE, Dosing Weight 95.455, kg, Priority: STAT, Start date: 06/10/15 22:42:00, Stop date: 06/10/15 22:42:00 Inactive 06/11/2015 [facility] Sodium Chloride 0.154 MEQ/ML Injectable Solution 100 mL, 100 ml/hr, Infuse Over: 1 Hour, Route: IV, ONCE, Priority: STAT, Dosing Weight 95.455 kg, Start date: 06/10/15 22:10:00, Duration: 1 doses or times, Stop date: 06/10/15 22:10:00 Inactive 06/11/2015 [facility] Protonix 40 mg, Route: IVP, ONCE, Dosing Weight 113.636, kg, Priority: STAT, Start date: 04/21/15 14:11:00, Stop date: 04/21/15 14:11:00 Inactive 04/21/2015 [facility] Benadryl 25 mg, Route: IVP, ONCE, Dosing Weight 113.636, kg, Priority: STAT, Start date: 04/21/15 14:11:00, Stop date: 04/21/15 14:11:00 Inactive 04/21/2015 [facility] Reglan 10 mg, Route: IVP, Drug form: INJ, ONCE, Dosing Weight 113.636, kg, Priority: STAT, Start date: 04/21/15 14:11:00, Stop date: 04/21/15 14:11:00 Inactive 04/21/2015 [facility] Sodium Chloride 0.154 MEQ/ML Injectable Solution 1,000 mL, 1,000 ml/hr, Infuse Over: 1 hr, Route: IV, ONCE, Priority: STAT, Dosing Weight 113.636 kg, Start date: 04/21/15 14:10:00, Duration: 1 doses or times, Stop date: 04/21/15 14:10:00 Inactive 04/21/2015 [facility] Metronidazole 500 MG Oral Tablet [Flagyl] 500 mg=1 tab, PO, Q12H, X 7 day, # 14 tab, 0 Refill(s) Active 04/19/2015 [facility] Sulfamethoxazole 800 MG / Trimethoprim 160 MG Oral Tablet [Bactrim] 1 tab, PO, BID, X 7 day, # 14 tab, 0 Refill(s) Active 04/19/2015 [facility] Rocephin 250 mg, Route: IM, Drug form: PDR/INJ, ONCE, Dosing Weight 97.727, kg, Priority: STAT, Start date: 04/19/15 0:13:00, Stop date: 04/19/15 0:13:00 Inactive 04/19/2015 [facility] Rocephin 1 gm, Route: IVPB, Drug form: PDR/INJ, ONCE, Dosing Weight 97.727, kg, Priority: STAT, Start date: 04/18/15 23:47:00, Stop date: 04/18/15 23:47:00 No Longer Active 04/19/2015 [facility] Albuterol 0.833 MG/ML / Ipratropium Harwood 0.167 MG/ML Inhalant Solution [DuoNeb] 3 ml, Route: NEB, Drug Form: SOLN, Dosing Weight 97.727, kg, PRN, PRN Respiratory Protocol, Start date: 04/18/15 23:10:00, Duration: 30 day, Stop date: 05/18/15 23:09:00Notes: (Same as: Duoneb) No Longer Active 04/19/2015 [facility] Tylenol 650 mg, 2 tab, Route: PO, Drug form: TAB, ONCE, Dosing Weight 97.727, kg, Priority: STAT, Start date: 04/18/15 23:10:00, Stop date: 04/18/15 23:10:00Notes: Do not exceed 4 gm/day. (Same as: Tylenol) Inactive 04/19/2015 [facility] Saline Flush 0.9% 10 mL, Route: IVP, Drug Form: INJ, Dosing Weight 97.727, kg, PRN, PRN Line Flush, Start date: 04/18/15 23:10:00, Duration: 30 day, Stop date: 05/18/15 23:09:00Notes: (Same as: BD Posiflush) No Longer Active 04/19/2015 [facility] Sodium Chloride 0.154 MEQ/ML Injectable Solution 1,000 mL, Rate: 125 ml/hr, Infuse over: 8 hr, Route: IV, Dosing Weight 97.727 kg, Total Volume: 1,000, Start date: 04/18/15 23:10:00, Duration: 30 day, Stop date: 05/18/15 23:09:00 No Longer Active 04/19/2015 [facility] Ceftriaxone 250 mg, Route: IM, Drug form: PDR/INJ, ONCE, Dosing Weight 100, kg, Priority: STAT, Start date: 03/09/15 23:42:00, Stop date: 03/09/15 23:42:00 Inactive 03/10/2015 [facility] Ondansetron 4 MG Oral Tablet [Zofran] 4 mg=1 tab, PO, BID, X 5 day, # 10 tab, 0 Refill(s) Active 03/10/2015 [facility] Metronidazole 500 MG Oral Tablet [Flagyl] 500 mg=1 tab, PO, Q12H, X 14 day, # 28 tab, 0 Refill(s) Active 03/10/2015 [facility] doxycycline monohydrate 100 mg oral tablet 100 mg=1 tab, PO, Q12H, X 14 day, # 28 tab, 0 Refill(s) Active 03/10/2015 [facility] Morphine 4 mg, 2 mL, Route: IVP, Drug form: INJ, ONCE, Dosing Weight 100, kg, Priority: STAT, Start date: 03/09/15 20:14:00, Stop date: 03/09/15 20:14:00Notes: (Same as:MORPhine Sulfate) Inactive 03/10/2015 [facility] Sodium Chloride 0.154 MEQ/ML Injectable Solution 1,000 mL, 1,000 ml/hr, Infuse Over: 1 hr, Route: IV, 1,000, Drug form: INJ, ONCE, Priority: STAT, Dosing Weight 100 kg, Start date: 03/09/15 17:15:00, Duration: 1 doses or times, Stop date: 03/09/15 17:15:00 Inactive 03/09/2015 [facility] Zofran 4 mg, 2 mL, Route: IVP, Drug form: INJ, ONCE, Dosing Weight 100, kg, Priority: STAT, Start date: 03/09/15 17:13:00, Stop date: 03/09/15 17:13:00Notes: (Same as: Zofran) MEDICATION WASTE Product Size: 4 mg Product Wasted: ___ mg Inactive 03/09/2015 [facility] Diflunisal 500 MG Oral Tablet [Dolobid] 500 mg=1 tab, PO, Q8H, # 90 tab, 0 Refill(s) Active 11/04/2014 [facility] Ondansetron 4 MG Disintegrating Tablet [Zofran] 4 mg=1 tab, PO, BID, Nausea and Vomiting, Dissolve tab under tongue, # 10 tab, 0 Refill(s)Special Instructions: Dissolve tab under tongue Active 11/04/2014 [facility] Metronidazole 500 MG Oral Tablet [Flagyl] 500 mg=1 tab, PO, Q12H, # 14 tab, 0 Refill(s) Active 11/04/2014 [facility] doxycycline monohydrate 100 mg oral tablet 100 mg=1 tab, PO, Q12H, # 20 tab, 0 Refill(s) Active 11/04/2014 [facility] Flagyl 1,000 mg, Route: PO, ONCE, Dosing Weight 97.727, kg, Priority: STAT, Start date: 11/04/14 11:53:00, Stop date: 11/04/14 11:53:00 Inactive 11/04/2014 [facility] Rocephin 250 mg, Route: IM, Drug form: PDR/INJ, ONCE, Dosing Weight 97.727, kg, Priority: STAT, Start date: 11/04/14 11:53:00, Stop date: 11/04/14 11:53:00 Inactive 11/04/2014 [facility] Ketorolac 30 mg, Route: IVP, Drug form: INJ, ONCE, Dosing Weight 97.727, kg, Priority: STAT, Start date: 11/04/14 8:48:00, Stop date: 11/04/14 8:48:00 Inactive 11/04/2014 [facility] Ondansetron 4 MG Disintegrating Tablet 4 mg=1 tab, PO, TID, Nausea / Vomiting, Dissolve tab under tongue, # 10 tab, 0 Refill(s)Special Instructions: Dissolve tab under tongue Active 10/30/2014 [facility] Sulfamethoxazole 800 MG / Trimethoprim 160 MG Oral Tablet [Bactrim] 1 tab, PO, BID, # 28 tab, 0 Refill(s) Active 10/30/2014 [facility] Tylenol 975 mg, Route: PO, Drug form: TAB, ONCE, Dosing Weight 97.727, kg, Priority: STAT, Start date: 10/30/14 8:49:00, Stop date: 10/30/14 8:49:00 Inactive 10/30/2014 [facility] Morphine 4 mg, Route: IVP, ONCE, Dosing Weight 97.727, kg, Priority: STAT, Start date: 10/30/14 8:08:00, Stop date: 10/30/14 8:08:00 Inactive 10/30/2014 [facility] Ondansetron 4 mg, Route: IVP, ONCE, Dosing Weight 97.727, kg, Priority: STAT, Start date: 10/30/14 8:08:00, Stop date: 10/30/14 8:08:00 Inactive 10/30/2014 [facility] Saline Flush 0.9% 10 mL, Route: IVP, Drug Form: INJ, Dosing Weight 97.727, kg, PRN, PRN Line Flush, Start date: 10/30/14 8:08:00, Duration: 30 day, Stop date: 11/29/14 9:07:00Notes: (Same as: BD Posiflush) Inactive 10/30/2014 [facility] Sodium Chloride 0.154 MEQ/ML Injectable Solution 1,000 mL, Infuse Over: 1 hr, Route: IV, ONCE, Priority: STAT, Dosing Weight 97.727 kg, Start date: 10/30/14 8:08:00, Duration: 1 doses or times, Stop date: 10/30/14 8:08:00 Inactive 10/30/2014 [facility] Phenazopyridine hydrochloride 200 MG Oral Tablet [Pyridium] 200 mg=1 tab, PO, TID, # 21 tab, 0 Refill(s) Active 06/23/2014 [facility] Nitrofurantoin 100 MG Oral Capsule [Macrodantin] 100 mg=1 cap, PO, QID, # 28 cap, 0 Refill(s) Active 06/23/2014 [facility] Hydrocortisone 10 MG/ML / Neomycin 3.5 MG/ML / Polymyxin B 03155 UNT/ML Otic Solution 4 drp, RIGHT EAR, QID, # 10 mL, 0 Refill(s) Active 06/23/2014 [facility] Ondansetron 4 mg, Route: IVP, Drug form: INJ, ONCE, Dosing Weight 52.273, kg, Priority: STAT, Start date: 06/23/14 9:02:00, Stop date: 06/23/14 9:02:00 Inactive 06/23/2014 [facility] Sodium Chloride 0.154 MEQ/ML Injectable Solution 1,000 mL, 1,000 ml/hr, Infuse Over: 1 hr, Route: IV, ONCE, Priority: STAT, Dosing Weight 52.273 kg, Start date: 06/23/14 9:02:00, Duration: 1 doses or times, Stop date: 06/23/14 9:02:00 Inactive 06/23/2014 [facility] Albuterol 0.833 MG/ML / Ipratropium Harwood 0.167 MG/ML Inhalant Solution [DuoNeb] 3 mL, INHALATION, TID, Wheezing, # 90 mL, 0 Refill(s) Active 06/10/2014 [facility] predniSONE 20 mg oral tablet 60 mg=3 tab, PO, Daily, Take 3 tablets for 60 mg dose, # 9 tab, 0 Refill(s)Special Instructions: Take 3 tablets for 60 mg dose Active 06/10/2014 [facility] 200 ACTUAT Ipratropium Harwood 0.017 MG/ACTUAT Metered Dose Inhaler [Atrovent] 1 puff, INHALATION, QID, wheezing, # 1 ea, 0 Refill(s) Active 06/10/2014 [facility] Albuterol 0.83 MG/ML Inhalant Solution 2.49 mg=3 mL, INHALATION, Q6H, # 120 ea, 0 Refill(s) Active 06/10/2014 [facility] Prednisone 60 mg, 3 tab, Route: PO, Drug form: TAB, ONCE, Dosing Weight 97.727, kg, Priority: STAT, Start date: 06/10/14 4:19:00, Stop date: 06/10/14 4:19:00Notes: Take with food. Inactive 06/10/2014 [facility] Albuterol 0.833 MG/ML / Ipratropium Harwood 0.167 MG/ML Inhalant Solution [DuoNeb] 3 mL, Route: INHALATION, Dosing Weight 97.727, kg, ONCE, STAT, Start date: 06/10/14 4:02:00, Stop date: 06/10/14 4:02:00 Inactive 06/10/2014 [facility] Protonix 40 mg oral enteric coated tablet 40 mg, 1 tab, PO, Daily, 30 tab, Substitution Allowed, ECTAB PO Active Luciano 07/09/2012 [facility] Ultram 50 mg oral tablet 50 mg, 1 tab, PO, Q4H, PRN, 20 tab, pain, Substitution Allowed PO Active Luciano 07/09/2012 [facility] ondansetron 4 mg oral tablet, disintegrating 4 mg, Route: PO, Drug form: TABDIS, ONCE, Dosing Weight 98.636, kg, Priority: STAT, Start date: 07/08/12 23:26:00, Stop date: 07/08/12 23:26:00 PO No Longer Active Luciano 07/09/2012 [facility] Sodium Chloride 0.9% (Bolus) IV 1000 mL 1,000 mL, Rate: 1,000 ml/hr, Infuse over: 1 hr, Route: IV, Dosing Weight 98.636 kg, Total Volume: 1,000, Bolus Dose, Priority: STAT, Start date: 07/08/12 22:50:00, Duration: 1 doses or times, Stop date: 07/08/12 23:49:00 IV No Longer Active Luciano 07/09/2012 [facility] morphine Sulfate 4 mg, Route: IVP, ONCE, Dosing Weight 98.636, kg, Priority: STAT, Start date: 07/08/12 22:50:00, Stop date: 07/08/12 22:50:00 IVP No Longer Active Luciano 07/09/2012 [facility] METRONIDazole 500 mg oral tablet 500 mg, 1 tab, PO, Q12H, 14 tab, Substitution Allowed PO Active Leon 04/16/2012 [facility] naproxen 500 mg oral tablet 500 mg, 1 tab, PO, BID, PRN, 30 tab, Pain, Substitution Allowed PO Active Leon 04/16/2012 [facility] DuoNeb inhalation solution 3 ml, INHALATION, QID, PRN, 30 ea, as needed for shortness of breath or wheezing, Substitution Allowed, Maintenance, SOLN INHALATION Active Mcdowell 11/11/2011 [facility] DuoNeb inhalation solution 3 ml, Route: INHALATION, Drug Form: SOLN, QID, PRN See Respiratory Notes, Start date: 11/10/11 23:16:00, Duration: 30 day, Stop date: 12/10/11 23:15:00, once INHALATION No Longer Active [facility] 11/11/2011 [facility] Motrin Route: PO, ONCE, Start date: 11/10/11 23:15:00, Stop date: 11/10/11 23:15:00 PO No Longer Active [facility] 11/11/2011 [facility] Ultram 50 mg oral tablet 1 - 2 tabs, PO, Q4-6H, PRN, 30 tab, as needed for pain, Substitution Allowed PO Active [facility] 11/11/2011 [facility] Saline Flush 0.9% 5 ml, Route: IVP, PRN, PRN Line Flush, Start date: 11/10/11 22:05:00, Duration: 24 hr, Stop date: 11/11/11 22:04:00 IVP No Longer Active [facility] 11/11/2011 [facility] Ultram 50 mg oral tablet 50 mg, 1 tab, Route: PO, Drug form: TAB, Q4H, PRN Pain, Start date: 11/10/11 21:59:00, Duration: 30 day, Stop date: 12/10/11 21:58:00 PO No Longer Active Marline 11/11/2011 [facility] doxycycline hyclate 100 mg oral tablet 100 mg, 1 tab, PO, BID, 20 tab, Substitution Allowed, TAB PO Active [facility] 10/16/2011 [facility] Naprosyn 500 mg oral tablet 500 mg, 1 tab, PO, BID, 20 tab, Substitution Allowed, TAB PO Active [facility] 10/16/2011 [facility] Saline Flush 0.9% 5 ml, Route: IVP, Drug Form: INJ, PRN, PRN Line Flush, Start date: 10/15/11 13:56:00, Duration: 24 hr, Stop date: 10/16/11 13:55:00 IVP No Longer Active [facility] 10/15/2011 [facility] Allergies, Adverse Reactions, Alerts Substance Category Reaction Severity Reaction type Status Date Reported Comments Source Cipro Assertion Drug allergy Active [facility] erythromycin Assertion Drug allergy Active [facility] hydrocodone Assertion Drug allergy Active [facility] Phenergan Assertion Drug allergy Active [facility] Stadol Assertion Drug allergy Active [facility] ciprofloxacin Assertion Drug allergy Active [facility] HYDROcodone Assertion Drug allergy Active [facility] predniSONE Assertion Drug allergy Active [facility] nitrous oxide Assertion Drug allergy Active [facility] aspirin Assertion Drug allergy Active [facility] Immunizations Immunization Date Given Site Status Last Updated Comments Source Results Order Name Results Value Reference Range Date Interpretation Comments Source CARDIAC ENZYMES Troponin-I null 0.00 - 0.40 07/30/2017 [facility] CARDIAC ENZYMES Total CK 74 unit/L 12 - 191 07/30/2017 [facility] CARDIAC ENZYMES CK MB 0.7 ng/mL 0.5 - 3.6 07/30/2017 [facility] CARDIAC ENZYMES CK MB Index 0.9 0.0 - 2.5 07/30/2017 [facility] CARDIAC ENZYMES Troponin-I null 0.00 - 0.40 07/30/2017 [facility] CARDIAC ENZYMES Total CK 80 unit/L 12 - 191 07/30/2017 [facility] LIPIDS VLDL 13 07/30/2017 [facility] LIPIDS LDL (Calculated) 87 mg/dL <=99 mg/dL 07/30/2017 [facility] LIPIDS Chol 186 mg/dL <=199 mg/dL 07/30/2017 [facility] LIPIDS Trig 66 mg/dL <=149 mg/dL 07/30/2017 [facility] LIPIDS HDL 86 mg/dL >=61 mg/dL 07/30/2017 [facility] LIPIDS CHD Risk 2.16 3.90 - 5.80 07/30/2017 [facility] CARDIAC ENZYMES Total CK 91 unit/L 12 - 191 07/30/2017 [facility] CARDIAC ENZYMES CK MB 0.8 ng/mL 0.5 - 3.6 07/30/2017 [facility] CARDIAC ENZYMES Troponin-I null 0.00 - 0.40 07/30/2017 [facility] CARDIAC ENZYMES CK MB Index 0.9 0.0 - 2.5 07/30/2017 [facility] CHEM PANEL Lipase Lvl 207 unit/L 73 - 393 07/30/2017 [facility] CHEM PANEL eGFR 106 mL/min/1.73m2 07/30/2017 Result Comment: The eGFR is calculated using the CKD-EPI formula. In most young, healthy individuals the eGFR will be >90 mL/min/1.73m2. The eGFR declines with age. An eGFR of 60-89 may be normal in some populations, particularly the elderly, for whom the CKD-EPI formula has not been extensively validated. Use of the eGFR is not recommended in the following populations: Individuals with unstable creatinine concentrations, including patients and those with serious co-morbid conditions. Patients with extremes in muscle mass or diet. The data above are obtained from the National Kidney Disease Education Program (NKDEP) which additionally recommends that when the eGFR is used in patients with extremes of body mass index for purposes of drug dosing, the eGFR should be multiplied by the estimated BMI. [facility] CHEM PANEL Bili Total 0.4 mg/dL 0.2 - 1.3 07/30/2017 [facility] CHEM PANEL AGAP 11.5 meq/L 10.0 - 20.0 07/30/2017 [facility] CHEM PANEL Alk Phos 77 unit/L 39 - 136 07/30/2017 [facility] CHEM PANEL Total Protein 7.1 g/dL 6.4 - 8.4 07/30/2017 [facility] CHEM PANEL ALT 28 unit/L 0 - 65 07/30/2017 [facility] CHEM PANEL AST 13 unit/L 0 - 37 07/30/2017 [facility] CHEM PANEL Albumin Lvl 3.4 g/dL 3.5 - 5.0 07/30/2017 [facility] CHEM PANEL BUN 14 mg/dL 7 - 22 07/30/2017 [facility] CHEM PANEL Glucose Lvl 177 mg/dL 70 - 99 07/30/2017 [facility] CHEM PANEL Creatinine Lvl 0.75 mg/dL 0.50 - 1.40 07/30/2017 [facility] CHEM PANEL Sodium Lvl 139 meq/L 135 - 145 07/30/2017 [facility] CHEM PANEL Chloride Lvl 105 meq/L 95 - 109 07/30/2017 [facility] CHEM PANEL CO2 26 meq/L 24 - 32 07/30/2017 [facility] CHEM PANEL Potassium Lvl 3.5 meq/L 3.5 - 5.1 07/30/2017 [facility] CHEM PANEL Calcium Lvl 9.1 mg/dL 8.5 - 10.5 07/30/2017 [facility] CHEM PANEL Globulin 3.7 g/dL 2.7 - 4.2 07/30/2017 [facility] CHEM PANEL A/G Ratio 0.9 0.7 - 1.6 07/30/2017 [facility] CHEM PANEL B/C Ratio 19 6 - 25 07/30/2017 [facility] CHEM PANEL Ketone Quantitative 0.11 mmol/L <=0.27 mmol/L 07/30/2017 [facility] DRUG SCREEN U Phencyc Scr Negative *NA* (07/30/17 9:23 AM) Negative 07/30/2017 [facility] DRUG SCREEN U Opiate Scr Negative *NA* (07/30/17 9:23 AM) Negative 07/30/2017 [facility] DRUG SCREEN U Cocaine Scr Negative *NA* (07/30/17 9:23 AM) Negative 07/30/2017 [facility] DRUG SCREEN U Benzodia Scr Negative *NA* (07/30/17 9:23 AM) Negative 07/30/2017 [facility] DRUG SCREEN U Cannab Scr Negative *NA* (07/30/17 9:23 AM) Negative 07/30/2017 [facility] DRUG SCREEN U Jocelyn Scr Negative *NA* (07/30/17 9:23 AM) Negative 07/30/2017 [facility] DRUG SCREEN U Amph Scr Negative *NA* (07/30/17 9:23 AM) Negative 07/30/2017 [facility] DRUG SCREEN UDS Note See Note *NA* (07/30/17 9:23 AM) 07/30/2017 [facility] ENDOCRINOLOGY S Preg Negative *NA* (07/30/17 9:23 AM) Negative 07/30/2017 [facility] HEMATOLOGY PTT 30.2 s 22.9 - 35.8 07/30/2017 [facility] HEMATOLOGY PT 13.7 s 12.0 - 14.7 07/30/2017 [facility] HEMATOLOGY INR 1.05 0.85 - 1.17 07/30/2017 [facility] HEMATOLOGY D-Dimer null 07/30/2017 [facility] MCHC 33.1 g/dL 32.0 - 36.0 07/30/2017 [facility] HEMATOLOGY RDW 14.8 % 11.5 - 14.5 07/30/2017 [facility] HEMATOLOGY MPV 8.8 fL 7.4 - 10.4 07/30/2017 [facility] HEMATOLOGY Platelet 296 K/CMM 133 - 450 07/30/2017 [facility] HEMATOLOGY Hgb 12.2 g/dL 12.0 - 16.0 07/30/2017 [facility] HEMATOLOGY Hct 36.7 % 36.0 - 48.0 07/30/2017 [facility] HEMATOLOGY RBC 4.55 M/CMM 4.20 - 5.40 07/30/2017 [facility] HEMATOLOGY WBC 9.9 K/CMM 3.7 - 10.4 07/30/2017 [facility] HEMATOLOGY MCH 26.7 pg 27.0 - 31.0 07/30/2017 [facility] HEMATOLOGY MCV 80.8 fL 80.0 - 98.0 07/30/2017 [facility] HEMATOLOGY Segs-Bands # 6.6 K/CMM 1.5 - 8.1 07/30/2017 [facility] HEMATOLOGY Lymphocytes # 2.5 K/CMM 1.0 - 5.5 07/30/2017 [facility] HEMATOLOGY Basophils # 0.1 K/CMM 0.0 - 0.2 07/30/2017 [facility] HEMATOLOGY Monocytes # 0.4 K/CMM 0.0 - 0.8 07/30/2017 [facility] HEMATOLOGY Eosinophils # 0.2 K/CMM 0.0 - 0.5 07/30/2017 [facility] HEMATOLOGY Segs 67.5 % 45.0 - 75.0 07/30/2017 [facility] HEMATOLOGY Lymphocytes 25.3 % 20.0 - 40.0 07/30/2017 [facility] HEMATOLOGY Eosinophils 2.4 % 0.0 - 4.0 07/30/2017 [facility] HEMATOLOGY Basophils 0.7 % 0.0 - 1.0 07/30/2017 [facility] HEMATOLOGY Monocytes 4.1 % 2.0 - 12.0 07/30/2017 [facility] URINE AND STOOL UA Urobilinogen <=1.0 mg/dL 0.1 - 1.0 07/30/2017 [facility] URINE AND STOOL UA Bili Negative *NA* (07/30/17 9:23 AM) Negative 07/30/2017 [facility] URINE AND STOOL UA Ketones Negative mg/dL Negative mg/dL 07/30/2017 [facility] URINE AND STOOL UA Glucose 50 mg/dL Negative mg/dL 07/30/2017 [facility] URINE AND STOOL UA Sq Epi Few /LPF Few /LPF 07/30/2017 [facility] URINE AND STOOL UA Leuk Est Trace *ABN* (07/30/17 9:23 AM) Negative 07/30/2017 [facility] URINE AND STOOL UA Nitrite Negative (07/30/17 9:23 AM) Negative 07/30/2017 [facility] URINE AND STOOL UA Blood Negative (07/30/17 9:23 AM) Negative 07/30/2017 [facility] URINE AND STOOL UA Bacteria Occasional /HPF None Seen /HPF 07/30/2017 [facility] URINE AND STOOL UA RBC null 0 - 2 07/30/2017 [facility] URINE AND STOOL UA WBC 4 /HPF 0 - 5 07/30/2017 [facility] URINE AND STOOL UA Mucus Few /LPF None Seen /LPF 07/30/2017 [facility] URINE AND STOOL UA pH 7.0 5.0 - 8.0 07/30/2017 [facility] URINE AND STOOL UA Spec Grav 1.006 <=1.030 07/30/2017 [facility] URINE AND STOOL UA Protein Negative mg/dL Negative mg/dL 07/30/2017 [facility] URINE AND STOOL UA Turbidity Clear (07/30/17 9:23 AM) Clear 07/30/2017 [facility] URINE AND STOOL UA Color Light Yellow *NA* (07/30/17 9:23 AM) Yellow 07/30/2017 [facility] Chest 1view DX Chest 1view DX Clinical Indication: - PALPITATIONS Comparison: 09/21/2016 FINDINGS: Single AP view of the chest is submitted for interpretation. The lungs are clear and there are no effusions. There is no visible pneumothorax. Cardiomediastinal contours are within normal limits. No gross bony normalities are identified. IMPRESSION: 1. No radiographic evidence of acute cardiopulmonary process. SL: [id number] 07/30/2017 - - Read by: Dennis Epps MD Dictated Date/time: 07/30/17 10:11 Electronically Signed by: Dennis Epps MD 07/30/17 10:13 FINAL REPORT [facility] CHEM PANEL Bili Total 0.2 mg/dL 0.2 - 1.3 09/21/2016 [facility] CHEM [facility] eGFR 101 mL/min/1.73m2 09/21/2016 Result Comment: The eGFR is calculated using the CKD-EPI formula. In most young, healthy individuals the eGFR will be >90 mL/min/1.73m2. The eGFR declines with age. An eGFR of 60-89 may be normal in some populations, particularly the elderly, for whom the CKD-EPI formula has not been extensively validated. Use of the eGFR is not recommended in the following populations: Individuals with unstable creatinine concentrations, including patients and those with serious co-morbid conditions. Patients with extremes in muscle mass or diet. The data above are obtained from the National Kidney Disease Education Program (NKDEP) which additionally recommends that when the eGFR is used in patients with extremes of body mass index for purposes of drug dosing, the eGFR should be multiplied by the estimated BMI. [facility] CHEM PANEL Glucose Lvl 210 mg/dL 70 - 99 09/21/2016 [facility] CHEM PANEL Creatinine Lvl 0.78 mg/dL 0.50 - 1.40 09/21/2016 [facility] CHEM PANEL Sodium Lvl 136 meq/L 135 - 145 09/21/2016 [facility] CHEM PANEL BUN 13 mg/dL 7 - 22 09/21/2016 [facility] CHEM PANEL Total Protein 7.3 g/dL 6.4 - 8.4 09/21/2016 [facility] CHEM PANEL Albumin Lvl 3.3 g/dL 3.5 - 5.0 09/21/2016 [facility] CHEM PANEL ALT 23 unit/L 0 - 65 09/21/2016 [facility] CHEM PANEL Alk Phos 74 unit/L 39 - 136 09/21/2016 [facility] CHEM PANEL AST 11 unit/L 0 - 37 09/21/2016 [facility] CHEM PANEL CO2 20 meq/L 24 - 32 09/21/2016 [facility] CHEM PANEL Calcium Lvl 8.3 mg/dL 8.5 - 10.5 09/21/2016 [facility] CHEM PANEL Chloride Lvl 103 meq/L 95 - 109 09/21/2016 [facility] CHEM PANEL Potassium Lvl 3.1 meq/L 3.5 - 5.1 09/21/2016 [facility] CHEM PANEL A/G Ratio 0.8 0.7 - 1.6 09/21/2016 [facility] CHEM PANEL AGAP 16.1 meq/L 10.0 - 20.0 09/21/2016 [facility] CHEM PANEL B/C Ratio 17 6 - 25 09/21/2016 [facility] CHEM PANEL Globulin 4.0 g/dL 2.7 - 4.2 09/21/2016 [facility] [place] [address] mIU/mL 09/21/2016 [facility] HEMATOLOGY Monocytes # 0.6 K/CMM 0.0 - 0.8 09/21/2016 [facility] HEMATOLOGY Eosinophils # 0.2 K/CMM 0.0 - 0.5 09/21/2016 [facility] HEMATOLOGY Segs-Bands # 7.0 K/CMM 1.5 - 8.1 09/21/2016 [facility] HEMATOLOGY Lymphocytes # 2.3 K/CMM 1.0 - 5.5 09/21/2016 [facility] HEMATOLOGY Basophils 2.9 % 0.0 - 1.0 09/21/2016 [facility] HEMATOLOGY Eosinophils 1.8 % 0.0 - 4.0 09/21/2016 [facility] HEMATOLOGY Lymphocytes 22.2 % 20.0 - 40.0 09/21/2016 [facility] HEMATOLOGY Monocytes 6.0 % 2.0 - 12.0 09/21/2016 [facility] HEMATOLOGY Segs 67.1 % 45.0 - 75.0 09/21/2016 [facility] Basophils # 0.3 K/CMM 0.0 - 0.2 09/21/2016 [facility] MPV 9.4 fL 7.4 - 10.4 09/21/2016 [facility] RDW 14.8 % 11.5 - 14.5 09/21/2016 [facility] Platelet 303 K/CMM 133 - 450 09/21/2016 [facility] MCH 26.0 pg 27.0 - 31.0 09/21/2016 [facility] MCHC 32.6 g/dL 32.0 - 36.0 09/21/2016 [facility] MCV 79.8 fL 80.0 - 98.0 09/21/2016 [facility] Hct 37.8 % 36.0 - 48.0 09/21/2016 [facility] RBC 4.74 M/CMM 4.20 - 5.40 09/21/2016 [facility] Hgb 12.3 g/dL 12.0 - 16.0 09/21/2016 [facility] WBC 10.4 K/CMM 3.7 - 10.4 09/21/2016 [facility] URINE AND STOOL UA Nitrite Negative (09/21/16 1:09 PM) Negative 09/21/2016 [facility] URINE AND STOOL UA Leuk Est Moderate *ABN* (09/21/16 1:09 PM) Negative 09/21/2016 [facility] URINE AND STOOL UA Blood Small *ABN* (09/21/16 1:09 PM) Negative 09/21/2016 [facility] URINE AND STOOL UA Urobilinogen <=1.0 mg/dL 0.1 - 1.0 09/21/2016 [facility] URINE AND STOOL UA Spec Grav 1.018 <=1.030 09/21/2016 [facility] URINE AND STOOL UA Color Light Yellow *NA* (09/21/16 1:09 PM) Yellow 09/21/2016 [facility] URINE AND STOOL UA Turbidity Slight *ABN* (09/21/16 1:09 PM) Clear 09/21/2016 [facility] URINE AND STOOL UA Bili Negative *NA* (09/21/16 1:09 PM) Negative 09/21/2016 [facility] URINE AND STOOL UA Ketones 20 mg/dL Negative mg/dL 09/21/2016 [facility] URINE AND STOOL UA Glucose 500 mg/dL Negative mg/dL 09/21/2016 [facility] URINE AND STOOL UA Protein Negative mg/dL Negative mg/dL 09/21/2016 [facility] URINE AND STOOL UA pH 6.0 5.0 - 8.0 09/21/2016 [facility] URINE AND STOOL UA RBC 3 /HPF 0 - 2 09/21/2016 [facility] URINE AND STOOL UA WBC 56 /HPF 0 - 5 09/21/2016 [facility] URINE AND STOOL UA Sq Epi Many /LPF Few /LPF 09/21/2016 [facility] URINE AND STOOL UA Mucus Few /LPF None Seen /LPF 09/21/2016 [facility] URINE AND STOOL UA Bacteria Few /HPF None Seen /HPF 09/21/2016 [facility] Preg < 14wks Single gest w Transvag US Preg < 14wks Single gest w Transvag US Study: Preg < 14wks Single gest w Transvag US Clinical Indication: Right-sided pelvic pain Comparison: Pelvic ultrasound from 09/16/2016 US PELVIS Technique: Grayscale, color and Doppler transabdominal and transvaginal imaging of the pelvis was performed with standard technique. FINDINGS: TRANSABDOMINAL PELVIC ULTRASOUND: The uterus is anteverted in position and measures 10.5 x 6.8 x 5.8 cm. The uterine myometrium is normal in echotexture and no definitive fibroid is seen. TRANSVAGINAL PELVIC ULTRASOUND: Single viable intrauterine gestation is seen. Hemphill-rump length of the embryo is 2.4 mm. Mean gestational sac size is 1.15 cm. Estimated gestational age based on sonographic measurements is 5 weeks 6 days. Normal heart tones are identified with heart rate of 100 bpm. There is no subchorionic hemorrhage. Hypoechoic left ovarian lesion measuring 1.6 x 1.4 x 2.1 cm is seen, may represent corpus luteal cyst. The right ovary is normal in appearance. Bilateral ovaries are normal in vascularity. The right ovary measures 1.2 x 1.2 x 2 cm. The left ovary measures 1.9 x 2.1 x 3.8 cm. No significant free fluid is noted in the pelvic cul-de-sac. IMPRESSION: 1. Single viable intrauterine gestation with estimated gestational age of 5 weeks 6 days. There is normal heart rate of 100 bpm. SL: [id number] 09/21/2016 - - Read by: Miguel Angel Scanlon MD Dictated Date/time: 09/21/16 14:10 Electronically Signed by: Miguel Angel Scanlon MD 09/21/16 14:12 FINAL REPORT [facility] Chest 1view DX Chest 1view DX Study: Chest 1view DX Clinical Indication: Chest pain Comparison: Chest x-ray from 07/13/2016 FINDINGS: The cardiac silhouette is normal in size. The lungs are clear and without consolidation or congestion. No pleural effusion or pneumothorax is seen. The osseous structures are unremarkable. IMPRESSION: No acute cardiopulmonary disease. SL: [id number] 09/21/2016 - - Read by: Miguel Angel Scanlon MD Dictated Date/time: 09/21/16 13:40 Electronically Signed by: Miguel Angel Scanlon MD 09/21/16 13:40 FINAL REPORT [facility] MOLECULAR DIAGNOSTIC N gonorrhea by Amp Det (APTIMA) Negative *NA* (09/16/16 5:09 PM) Negative 09/16/2016 [facility] MOLECULAR DIAGNOSTIC Source APTIMA Vaginal (09/16/16 5:09 PM) 09/16/2016 [facility] MOLECULAR DIAGNOSTIC C trachomatis by Amp Det (APTIMA) Negative *NA* (09/16/16 5:09 PM) Negative 09/16/2016 [facility] MOLECULAR DIAGNOSTIC Source APTIMA Vaginal (09/16/16 5:09 PM) 09/16/2016 [facility] URINE AND STOOL UA Color Ltyellow 09/16/2016 [facility] URINE AND STOOL UA Urobilinogen <=1.0 mg/dL 0.1 - 1.0 09/16/2016 [facility] URINE AND STOOL UA Sq Epi Few /LPF Few /LPF 09/16/2016 [facility] URINE AND STOOL UA Bacteria Occasional /HPF None Seen /HPF 09/16/2016 [facility] URINE AND STOOL UA RBC 1 /HPF 0 - 2 09/16/2016 [facility] URINE AND STOOL UA Mucus Few /LPF None Seen /LPF 09/16/2016 [facility] URINE AND STOOL UA WBC 20 /HPF 0 - 5 09/16/2016 [facility] URINE AND STOOL UA Spec Grav 1.015 <=1.030 09/16/2016 [facility] URINE AND STOOL UA Turbidity Clear (09/16/16 3:19 PM) Clear 09/16/2016 [facility] URINE AND STOOL UA Ketones 20 mg/dL Negative mg/dL 09/16/2016 [facility] URINE AND STOOL UA Bili Negative *NA* (09/16/16 3:19 PM) Negative 09/16/2016 [facility] URINE AND STOOL UA Protein Negative mg/dL Negative mg/dL 09/16/2016 [facility] URINE AND STOOL UA Glucose Negative mg/dL Negative mg/dL 09/16/2016 [facility] URINE AND STOOL UA pH 5.0 5.0 - 8.0 09/16/2016 [facility] URINE AND STOOL UA Blood Moderate *ABN* (09/16/16 3:19 PM) Negative 09/16/2016 [facility] URINE AND STOOL UA Nitrite Negative (09/16/16 3:19 PM) Negative 09/16/2016 [facility] URINE AND STOOL UA Leuk Est Moderate *ABN* (09/16/16 3:19 PM) Negative 09/16/2016 [facility] URINE CHEM U Preg Positive *ABN* (09/16/16 3:19 PM) Negative 09/16/2016 [facility] BLOOD BANK RESULTS ABO/Rh B POS 09/16/2016 [facility] CHEM PANEL eGFR 105 mL/min/1.73m2 09/16/2016 Result Comment: The eGFR is calculated using the CKD-EPI formula. In most young, healthy individuals the eGFR will be >90 mL/min/1.73m2. The eGFR declines with age. An eGFR of 60-89 may be normal in some populations, particularly the elderly, for whom the CKD-EPI formula has not been extensively validated. Use of the eGFR is not recommended in the following populations: Individuals with unstable creatinine concentrations, including patients and those with serious co-morbid conditions. Patients with extremes in muscle mass or diet. The data above are obtained from the National Kidney Disease Education Program (NKDEP) which additionally recommends that when the eGFR is used in patients with extremes of body mass index for purposes of drug dosing, the eGFR should be multiplied by the estimated BMI. [facility] CHEM PANEL CO2 23 meq/L 24 - 32 09/16/2016 [facility] CHEM PANEL Albumin Lvl 3.4 g/dL 3.5 - 5.0 09/16/2016 [facility] CHEM PANEL ALT 25 unit/L 0 - 65 09/16/2016 [facility] CHEM PANEL Calcium Lvl 8.2 mg/dL 8.5 - 10.5 09/16/2016 [facility] CHEM PANEL Total Protein 7.7 g/dL 6.4 - 8.4 09/16/2016 [facility] CHEM PANEL Glucose Lvl 156 mg/dL 70 - 99 09/16/2016 [facility] CHEM PANEL BUN 9 mg/dL 7 - 22 09/16/2016 [facility] CHEM PANEL Potassium Lvl 3.4 meq/L 3.5 - 5.1 09/16/2016 [facility] CHEM PANEL Chloride Lvl 101 meq/L 95 - 109 09/16/2016 [facility] CHEM PANEL Creatinine Lvl 0.76 mg/dL 0.50 - 1.40 09/16/2016 [facility] CHEM PANEL Sodium Lvl 134 meq/L 135 - 145 09/16/2016 [facility] CHEM PANEL AST 21 unit/L 0 - 37 09/16/2016 [facility] CHEM PANEL Alk Phos 77 unit/L 39 - 136 09/16/2016 [facility] CHEM PANEL Bili Total 0.4 mg/dL 0.2 - 1.3 09/16/2016 [facility] CHEM PANEL Globulin 4.3 g/dL 2.7 - 4.2 09/16/2016 [facility] CHEM PANEL A/G Ratio 0.8 0.7 - 1.6 09/16/2016 [facility] CHEM PANEL B/C Ratio 12 6 - 25 09/16/2016 [facility] CHEM PANEL AGAP 13.4 meq/L 10.0 - 20.0 09/16/2016 [facility] ENDOCRINOLOGY hCG Tot 4502 mIU/mL 09/16/2016 [facility] HEMATOLOGY Eosinophils 2.9 % 0.0 - 4.0 09/16/2016 [facility] HEMATOLOGY Lymphocytes 28.8 % 20.0 - 40.0 09/16/2016 [facility] HEMATOLOGY Monocytes 5.1 % 2.0 - 12.0 09/16/2016 [facility] HEMATOLOGY Basophils # 0.1 K/CMM 0.0 - 0.2 09/16/2016 [facility] HEMATOLOGY Monocytes # 0.5 K/CMM 0.0 - 0.8 09/16/2016 [facility] HEMATOLOGY Eosinophils # 0.3 K/CMM 0.0 - 0.5 09/16/2016 [facility] HEMATOLOGY Segs-Bands # 6.3 K/CMM 1.5 - 8.1 09/16/2016 [facility] HEMATOLOGY Basophils 0.6 % 0.0 - 1.0 09/16/2016 [facility] HEMATOLOGY Lymphocytes # 2.9 K/CMM 1.0 - 5.5 09/16/2016 [facility] Segs 62.6 % 45.0 - 75.0 09/16/2016 [facility] WBC 10.1 K/CMM 3.7 - 10.4 09/16/2016 [facility] MPV 9.3 fL 7.4 - 10.4 09/16/2016 [facility] RDW 14.9 % 11.5 - 14.5 09/16/2016 [facility] Platelet 320 K/CMM 133 - 450 09/16/2016 [facility] MCV 80.2 fL 80.0 - 98.0 09/16/2016 [facility] Hct 41.8 % 36.0 - 48.0 09/16/2016 [facility] MCHC 32.2 g/dL 32.0 - 36.0 09/16/2016 [facility] MCH 25.8 pg 27.0 - 31.0 09/16/2016 [facility] Hgb 13.5 g/dL 12.0 - 16.0 09/16/2016 [facility] RBC 5.22 M/CMM 4.20 - 5.40 09/16/2016 [facility] Preg < 14wks Single gest w Transvag US Preg < 14wks Single gest w Transvag US EXAM: Ultrasound pelvis less than 14 weeks HISTORY: Chronic, vaginal bleeding COMPARISON: None TECHNIQUE: Transabdominal and transvaginal pelvic ultrasound, grayscale static images. FINDINGS: Transabdominal ultrasound: Uterus: Measures 10.4 cm length and is anteflexed. No IUP is seen. Ovaries not visualized. Bladder underdistended. Transvaginal ultrasound exam performed to better evaluate the endometrium and adnexa: Uterus: Intrauterine gestational sac and yolk sac; no embryo is seen. Fibroid lower uterine segment. Cervix: Appears unremarkable. Adnexa: The ovaries are visualized. No adnexal mass or significant free fluid is seen. IMPRESSION: Intrauterine gestational sac and yolk sac; no embryo is seen. Uterine fibroid. SL: [id number] 09/16/2016 - - Read by: Troy Donis MD Dictated Date/time: 09/16/16 16:55 Electronically Signed by: Troy Donis MD 09/16/16 17:00 FINAL REPORT [facility] URINE AND STOOL UA Urobilinogen <=1.0 mg/dL 0.1 - 1.0 07/13/2016 [facility] URINE AND STOOL UA Mucus Few /LPF None Seen /LPF 07/13/2016 [facility] URINE AND STOOL UA RBC 3 /HPF 0 - 2 07/13/2016 [facility] URINE AND STOOL UA Glucose 50 mg/dL Negative mg/dL 07/13/2016 [facility] URINE AND STOOL UA Ketones Trace mg/dL Negative mg/dL 07/13/2016 [facility] URINE AND STOOL UA Leuk Est Moderate *ABN* (07/13/16 12:42 AM) Negative 07/13/2016 [facility] URINE AND STOOL UA Bili Negative *NA* (07/13/16 12:42 AM) Negative 07/13/2016 [facility] URINE AND STOOL UA Protein Negative mg/dL Negative mg/dL 07/13/2016 [facility] URINE AND STOOL UA Blood Small *ABN* (07/13/16 12:42 AM) Negative 07/13/2016 [facility] URINE AND STOOL UA Sq Epi Many /LPF Few /LPF 07/13/2016 [facility] URINE AND STOOL UA WBC 16 /HPF 0 - 5 07/13/2016 [facility] URINE AND STOOL UA Nitrite Negative (07/13/16 12:42 AM) Negative 07/13/2016 [facility] URINE AND STOOL UA Bacteria Occasional /HPF None Seen /HPF 07/13/2016 [facility] URINE AND STOOL UA pH 5.0 5.0 - 8.0 07/13/2016 [facility] URINE AND STOOL UA Spec Grav 1.025 <=1.030 07/13/2016 [facility] URINE AND STOOL UA Turbidity Slight *ABN* (07/13/16 12:42 AM) Clear 07/13/2016 [facility] URINE AND STOOL UA Color Yellow *NA* (07/13/16 12:42 AM) Yellow 07/13/2016 [facility] CARDIAC ENZYMES CK MB 0.7 ng/mL 0.5 - 3.6 07/13/2016 [facility] CARDIAC ENZYMES Total CK 68 unit/L 12 - 191 07/13/2016 [facility] CARDIAC ENZYMES Troponin-I null 0.00 - 0.40 07/13/2016 [facility] CARDIAC ENZYMES CK MB Index 1.0 0.0 - 2.5 07/13/2016 [facility] CHEM PANEL Bili Total 0.3 mg/dL 0.2 - 1.3 07/13/2016 [facility] CHEM PANEL A/G Ratio 0.9 0.7 - 1.6 07/13/2016 [facility] CHEM PANEL Total Protein 7.7 g/dL 6.4 - 8.4 07/13/2016 [facility] CHEM PANEL Globulin 4.1 g/dL 2.7 - 4.2 07/13/2016 [facility] CHEM PANEL AST 26 unit/L 0 - 37 07/13/2016 [facility] CHEM PANEL ALT 41 unit/L 0 - 65 07/13/2016 [facility] CHEM PANEL Alk Phos 84 unit/L 39 - 136 07/13/2016 [facility] CHEM PANEL Albumin Lvl 3.6 g/dL 3.5 - 5.0 07/13/2016 [facility] CHEM PANEL eGFR 93 mL/min/1.73m2 07/13/2016 Result Comment: The eGFR is calculated using the CKD-EPI formula. In most young, healthy individuals the eGFR will be >90 mL/min/1.73m2. The eGFR declines with age. An eGFR of 60-89 may be normal in some populations, particularly the elderly, for whom the CKD-EPI formula has not been extensively validated. Use of the eGFR is not recommended in the following populations: Individuals with unstable creatinine concentrations, including patients and those with serious co-morbid conditions. Patients with extremes in muscle mass or diet. The data above are obtained from the National Kidney Disease Education Program (NKDEP) which additionally recommends that when the eGFR is used in patients with extremes of body mass index for purposes of drug dosing, the eGFR should be multiplied by the estimated BMI. [facility] CHEM PANEL Chloride Lvl 104 meq/L 95 - 109 07/13/2016 [facility] CHEM PANEL CO2 23 meq/L 24 - 32 07/13/2016 [facility] CHEM PANEL Sodium Lvl 137 meq/L 135 - 145 07/13/2016 [facility] CHEM PANEL Potassium Lvl 3.6 meq/L 3.5 - 5.1 07/13/2016 [facility] CHEM PANEL B/C Ratio 20 6 - 25 07/13/2016 [facility] CHEM PANEL Calcium Lvl 8.6 mg/dL 8.5 - 10.5 07/13/2016 [facility] CHEM PANEL AGAP 13.6 meq/L 10.0 - 20.0 07/13/2016 [facility] CHEM PANEL Glucose Lvl 204 mg/dL 70 - 99 07/13/2016 [facility] CHEM PANEL BUN 17 mg/dL 7 - 22 07/13/2016 [facility] CHEM PANEL Creatinine Lvl 0.84 mg/dL 0.50 - 1.40 07/13/2016 [facility] HEMATOLOGY PTT 30.9 s 22.9 - 35.8 07/13/2016 [facility] HEMATOLOGY RBC 4.81 M/CMM 4.20 - 5.40 07/13/2016 [facility] HEMATOLOGY RDW 14.7 % 11.5 - 14.5 07/13/2016 [facility] HEMATOLOGY Platelet 336 K/CMM 133 - 450 07/13/2016 [facility] HEMATOLOGY Hgb 12.3 g/dL 12.0 - 16.0 07/13/2016 [facility] HEMATOLOGY Hct 38.1 % 36.0 - 48.0 07/13/2016 [facility] HEMATOLOGY WBC 11.1 K/CMM 3.7 - 10.4 07/13/2016 [facility] HEMATOLOGY MPV 9.1 fL 7.4 - 10.4 07/13/2016 [facility] MCH 25.6 pg 27.0 - 31.0 07/13/2016 [facility] MCHC 32.3 g/dL 32.0 - 36.0 07/13/2016 [facility] MCV 79.2 fL 80.0 - 98.0 07/13/2016 [facility] HEMATOLOGY PT 14.6 s 12.0 - 14.7 07/13/2016 [facility] HEMATOLOGY INR 1.12 0.85 - 1.17 07/13/2016 [facility] HEMATOLOGY D-Dimer null 07/13/2016 [facility] HEMATOLOGY Eosinophils # 0.3 K/CMM 0.0 - 0.5 07/13/2016 [facility] HEMATOLOGY Basophils # 0.1 K/CMM 0.0 - 0.2 07/13/2016 [facility] HEMATOLOGY Segs-Bands # 6.9 K/CMM 1.5 - 8.1 07/13/2016 [facility] HEMATOLOGY Eosinophils 2.6 % 0.0 - 4.0 07/13/2016 [facility] HEMATOLOGY Segs 61.7 % 45.0 - 75.0 07/13/2016 [facility] HEMATOLOGY Lymphocytes # 3.4 K/CMM 1.0 - 5.5 07/13/2016 [facility] HEMATOLOGY Monocytes # 0.5 K/CMM 0.0 - 0.8 07/13/2016 [facility] HEMATOLOGY Basophils 0.6 % 0.0 - 1.0 07/13/2016 [facility] HEMATOLOGY Lymphocytes 30.7 % 20.0 - 40.0 07/13/2016 [facility] HEMATOLOGY Monocytes 4.4 % 2.0 - 12.0 07/13/2016 [facility] Brain wo contrast CT Brain wo contrast CT EXAM: CT BRAIN WITHOUT CONTRAST DATE: 07/12/2016 11:59 PM CDT INDICATION: Headache with Dizziness and Giddiness. COMPARISON: CT brain dated 06/18/2016. TECHNIQUE: CT images were obtained from the foramen magnum to the vertex without intravenous contrast on a multidetector CT. Coronal and sagittal reconstructions were also provided for review. CT radiation dose DLP: 901.05 mGy-cm FINDINGS: No acute intracranial hemorrhage, midline shift, or mass effect is identified. The moy-white matter differentiation is preserved. No large vascular territory ischemia is present. The ventricles and sulci are within normal limits, without evidence for hydrocephalus. No areas of abnormal parenchymal hypoattenuation are present. An extra-axial calcification along the right frontal convexity on series 2 image 12 is visualized. The orbits, paranasal sinuses, and mastoid air cells are unremarkable. The visualized calvarium and skull base are within normal limits. IMPRESSION: 1. No acute intracranial hemorrhage, midline shift, or mass effect. 2. Extra-axial calcification along the right frontal convexity may represent a calcified meningioma. Dural calcification is considered less likely. SL: [id number] 07/13/2016 - - Read by: Darrin De Santiago MD Dictated Date/time: 07/13/16 00:43 Electronically Signed by: Darrin De Santiago MD 07/13/16 00:45 FINAL REPORT [facility] Chest 1view DX Chest 1view DX EXAM: XR CHEST 1 VIEW DATE: 07/12/2016 11:59 PM CDT INDICATION: Chest pain COMPARISON: Chest radiograph dated 07/10/2016 TECHNIQUE: A single AP view of the chest was obtained. FINDINGS: The lungs are well inflated. No focal consolidation or pneumothorax is identified. The cardiomediastinal silhouette is within normal limits. The costophrenic recesses are sharp and without effusion. No acute osseous abnormality is identified. IMPRESSION: No acute cardiopulmonary abnormality. SL: [id number] 07/13/2016 - - Read by: Darrin De Santiago MD Dictated Date/time: 07/13/16 00:46 Electronically Signed by: Darrin De Santiago MD 07/13/16 00:46 FINAL REPORT [facility] URINE CHEM U Preg Negative (07/10/16 1:06 PM) Negative 07/10/2016 [facility] Chest 2 views DX Chest 2 views DX PA and lateral chest: The cardiomediastinal silhouette, pulmonary vasculature and iraida are within normal limits. The lungs and pleural spaces are clear. There are no significant osseous abnormalities. There is no significant change compared to 07/07/2016. IMPRESSION: No acute radiographic abnormalities in the chest. [id number] 07/10/2016 - - Read by: Harman Storey MD Dictated Date/time: 07/10/16 12:58 Electronically Signed by: Harman Storey MD 07/10/16 12:59 FINAL REPORT [facility] CARDIAC ENZYMES CK MB Index 1.4 0.0 - 2.5 07/07/2016 [facility] CARDIAC ENZYMES Troponin-I null 0.00 - 0.40 07/07/2016 [facility] CARDIAC ENZYMES Total CK 51 unit/L 12 - 191 07/07/2016 [facility] CARDIAC ENZYMES CK MB 0.7 ng/mL 0.5 - 3.6 07/07/2016 [facility] CHEM PANEL eGFR 103 mL/min/1.73m2 07/07/2016 Result Comment: The eGFR is calculated using the CKD-EPI formula. In most young, healthy individuals the eGFR will be >90 mL/min/1.73m2. The eGFR declines with age. An eGFR of 60-89 may be normal in some populations, particularly the elderly, for whom the CKD-EPI formula has not been extensively validated. Use of the eGFR is not recommended in the following populations: Individuals with unstable creatinine concentrations, including patients and those with serious co-morbid conditions. Patients with extremes in muscle mass or diet. The data above are obtained from the National Kidney Disease Education Program (NKDEP) which additionally recommends that when the eGFR is used in patients with extremes of body mass index for purposes of drug dosing, the eGFR should be multiplied by the estimated BMI. [facility] CHEM PANEL Glucose Lvl 187 mg/dL 70 - 99 07/07/2016 [facility] CHEM PANEL BUN 18 mg/dL 7 - 22 07/07/2016 [facility] CHEM PANEL Chloride Lvl 106 meq/L 95 - 109 07/07/2016 [facility] CHEM PANEL Sodium Lvl 137 meq/L 135 - 145 07/07/2016 [facility] CHEM PANEL Potassium Lvl 3.2 meq/L 3.5 - 5.1 07/07/2016 [facility] CHEM PANEL Creatinine Lvl 0.77 mg/dL 0.50 - 1.40 07/07/2016 [facility] CHEM PANEL A/G Ratio 0.9 0.7 - 1.6 07/07/2016 [facility] CHEM PANEL Globulin 3.8 g/dL 2.7 - 4.2 07/07/2016 [facility] CHEM PANEL Albumin Lvl 3.3 g/dL 3.5 - 5.0 07/07/2016 [facility] CHEM PANEL ALT 30 unit/L 0 - 65 07/07/2016 [facility] CHEM PANEL Calcium Lvl 8.4 mg/dL 8.5 - 10.5 07/07/2016 [facility] CHEM PANEL Total Protein 7.1 g/dL 6.4 - 8.4 07/07/2016 [facility] CHEM PANEL Alk Phos 83 unit/L 39 - 136 07/07/2016 [facility] CHEM PANEL AGAP 12.2 meq/L 10.0 - 20.0 07/07/2016 [facility] CHEM PANEL B/C Ratio 23 6 - 25 07/07/2016 [facility] CHEM PANEL Bili Total 0.2 mg/dL 0.2 - 1.3 07/07/2016 [facility] CHEM PANEL CO2 22 meq/L 24 - 32 07/07/2016 [facility] CHEM PANEL AST 20 unit/L 0 - 37 07/07/2016 [facility] HEMATOLOGY Eosinophils # 0.3 K/CMM 0.0 - 0.5 07/07/2016 [facility] HEMATOLOGY Lymphocytes # 3.3 K/CMM 1.0 - 5.5 07/07/2016 [facility] HEMATOLOGY Monocytes # 0.6 K/CMM 0.0 - 0.8 07/07/2016 [facility] HEMATOLOGY Segs-Bands # 7.1 K/CMM 1.5 - 8.1 07/07/2016 [facility] HEMATOLOGY Monocytes 5.1 % 2.0 - 12.0 07/07/2016 [facility] HEMATOLOGY Eosinophils 2.9 % 0.0 - 4.0 07/07/2016 [facility] HEMATOLOGY Segs 62.8 % 45.0 - 75.0 07/07/2016 [facility] HEMATOLOGY Lymphocytes 29.0 % 20.0 - 40.0 07/07/2016 [facility] HEMATOLOGY Basophils 0.2 % 0.0 - 1.0 07/07/2016 [facility] HEMATOLOGY PTT 29.9 s 22.9 - 35.8 07/07/2016 [facility] HEMATOLOGY INR 1.06 0.85 - 1.17 07/07/2016 [facility] HEMATOLOGY PT 14.0 s 12.0 - 14.7 07/07/2016 [facility] HEMATOLOGY Platelet 316 K/CMM 133 - 450 07/07/2016 [facility] HEMATOLOGY MPV 8.8 fL 7.4 - 10.4 07/07/2016 [facility] HEMATOLOGY RDW 14.6 % 11.5 - 14.5 07/07/2016 [facility] HEMATOLOGY MCHC 32.2 g/dL 32.0 - 36.0 07/07/2016 [facility] HEMATOLOGY Hct 36.3 % 36.0 - 48.0 07/07/2016 [facility] HEMATOLOGY WBC 11.3 K/CMM 3.7 - 10.4 07/07/2016 [facility] HEMATOLOGY Hgb 11.7 g/dL 12.0 - 16.0 07/07/2016 [facility] HEMATOLOGY RBC 4.57 M/CMM 4.20 - 5.40 07/07/2016 [facility] MCH 25.6 pg 27.0 - 31.0 07/07/2016 [facility] HEMATOLOGY MCV 79.3 fL 80.0 - 98.0 07/07/2016 [facility] URINE AND STOOL UA Urobilinogen <=1.0 mg/dL 0.1 - 1.0 07/07/2016 [facility] URINE AND STOOL UA Color Red 07/07/2016 [facility] URINE AND STOOL UA Nitrite Negative (07/07/16 5:15 PM) Negative 07/07/2016 [facility] URINE AND STOOL UA Leuk Est Negative (07/07/16 5:15 PM) Negative 07/07/2016 [facility] URINE AND STOOL UA Blood Large *ABN* (07/07/16 5:15 PM) Negative 07/07/2016 [facility] URINE AND STOOL UA WBC 25 /HPF 0 - 5 07/07/2016 [facility] URINE AND STOOL UA Mucus Few /LPF None Seen /LPF 07/07/2016 [facility] URINE AND STOOL UA RBC null 0 - 2 07/07/2016 [facility] URINE AND STOOL UA Sq Epi None Seen 07/07/2016 [facility] URINE AND STOOL UA Spec Grav 1.024 <=1.030 07/07/2016 [facility] URINE AND STOOL UA Ketones Negative mg/dL Negative mg/dL 07/07/2016 [facility] URINE AND STOOL UA Bili Negative *NA* (07/07/16 5:15 PM) Negative 07/07/2016 [facility] URINE AND STOOL UA pH 6.0 5.0 - 8.0 07/07/2016 [facility] URINE AND STOOL UA Glucose 50 mg/dL Negative mg/dL 07/07/2016 [facility] URINE AND STOOL UA Protein 100 mg/dL Negative mg/dL 07/07/2016 [facility] URINE AND STOOL UA Turbidity Marked *ABN* (07/07/16 5:15 PM) Clear 07/07/2016 [facility] Chest 1view DX Chest 1view DX Study: Chest 1view DX 07/07/2016 4:52 PM CDT Patient Name: ROXANA HUERTA MR: [id number] : 1985; Age: 30 years y/o Female Ordering Physician: Shruti Tee Clinical Indication: Chest pain Comparison: 06-29. FINDINGS LUNGS: The lungs are clear of consolidation, pleural effusion, and pneumothorax. HEART AND MEDIASTINUM: Normal size heart. LINES: None. OSSEOUS STRUCTURES: No fracture, dislocation, or suspicious focal osseous lesion. OTHER: None. IMPRESSION: 1. No acute abnormality as above discussed. SL: [id number] 07/07/2016 - - Read by: Vineet Andrade MD Dictated Date/time: 07/07/16 17:33 Electronically Signed by: Vineet Andrade MD 07/07/16 17:33 FINAL REPORT [facility] CARDIAC ENZYMES Troponin-I null 0.00 - 0.40 06/20/2016 [facility] HEMATOLOGY D-Dimer null 06/20/2016 [facility] Chest 2 views DX Chest 2 views DX Clinical Indication: 30 years Female with Cough and fever Comparison: Chest x-ray 06/18/2016 FINDINGS: The PA and lateral chest radiographs shows normal lung volumes. No interstitial or airspace opacities. No pleural effusion. No pneumothorax. The cardiac silhouette is normal. The pulmonary vasculature is normal. The trachea is midline. There are no clinically significant osseous abnormalities noted. IMPRESSION: No chest radiographic evidence of acute cardiopulmonary disease. SL: [id number] 06/19/2016 - - Read by: Harman Clement MD Dictated Date/time: 06/19/16 16:04 Electronically Signed by: Harman Clement MD 06/19/16 16:05 FINAL REPORT [facility] CARDIAC ENZYMES CK MB Index 1.0 0.0 - 2.5 06/19/2016 [facility] CARDIAC ENZYMES Troponin-I null 0.00 - 0.40 06/19/2016 [facility] CARDIAC ENZYMES Total CK 61 unit/L 12 - 191 06/19/2016 [facility] CARDIAC ENZYMES CK MB 0.6 ng/mL 0.5 - 3.6 06/19/2016 [facility] CHEM PANEL A/G Ratio 0.9 0.7 - 1.6 06/19/2016 [facility] CHEM PANEL AST 18 unit/L 0 - 37 06/19/2016 [facility] CHEM PANEL B/C Ratio 22 6 - 25 06/19/2016 [facility] CHEM PANEL Alk Phos 82 unit/L 39 - 136 06/19/2016 [facility] CHEM PANEL Globulin 3.9 g/dL 2.7 - 4.2 06/19/2016 [facility] CHEM PANEL Bili Total 0.2 mg/dL 0.2 - 1.3 06/19/2016 [facility] CHEM PANEL AGAP 10.7 meq/L 10.0 - 20.0 06/19/2016 [facility] CHEM PANEL CO2 25 meq/L 24 - 32 06/19/2016 [facility] CHEM PANEL Calcium Lvl 8.6 mg/dL 8.5 - 10.5 06/19/2016 [facility] CHEM PANEL Albumin Lvl 3.6 g/dL 3.5 - 5.0 06/19/2016 [facility] CHEM PANEL ALT 34 unit/L 0 - 65 06/19/2016 [facility] CHEM PANEL Total Protein 7.5 g/dL 6.4 - 8.4 06/19/2016 [facility] CHEM PANEL Potassium Lvl 3.7 meq/L 3.5 - 5.1 06/19/2016 [facility] CHEM PANEL Chloride Lvl 105 meq/L 95 - 109 06/19/2016 [facility] CHEM PANEL eGFR 102 mL/min/1.73m2 06/19/2016 Result Comment: The eGFR is calculated using the CKD-EPI formula. In most young, healthy individuals the eGFR will be >90 mL/min/1.73m2. The eGFR declines with age. An eGFR of 60-89 may be normal in some populations, particularly the elderly, for whom the CKD-EPI formula has not been extensively validated. Use of the eGFR is not recommended in the following populations: Individuals with unstable creatinine concentrations, including patients and those with serious co-morbid conditions. Patients with extremes in muscle mass or diet. The data above are obtained from the National Kidney Disease Education Program (NKDEP) which additionally recommends that when the eGFR is used in patients with extremes of body mass index for purposes of drug dosing, the eGFR should be multiplied by the estimated BMI. [facility] CHEM PANEL Sodium Lvl 137 meq/L 135 - 145 06/19/2016 [facility] CHEM PANEL Creatinine Lvl 0.78 mg/dL 0.50 - 1.40 06/19/2016 [facility] CHEM PANEL BUN 17 mg/dL 7 - 22 06/19/2016 [facility] CHEM PANEL Glucose Lvl 215 mg/dL 70 - 99 06/19/2016 [facility] ENDOCRINOLOGY S Preg Negative *NA* (06/18/16 10:14 PM) Negative 06/19/2016 [facility] HEMATOLOGY Eosinophils # 0.4 K/CMM 0.0 - 0.5 06/19/2016 [facility] HEMATOLOGY Monocytes # 0.8 K/CMM 0.0 - 0.8 06/19/2016 [facility] Basophils 1.4 % 0.0 - 1.0 06/19/2016 [facility] HEMATOLOGY Lymphocytes # 3.4 K/CMM 1.0 - 5.5 06/19/2016 [facility] HEMATOLOGY Segs-Bands # 7.3 K/CMM 1.5 - 8.1 06/19/2016 [facility] Basophils # 0.2 K/CMM 0.0 - 0.2 06/19/2016 [facility] HEMATOLOGY Eosinophils 3.0 % 0.0 - 4.0 06/19/2016 [facility] Monocytes 6.3 % 2.0 - 12.0 06/19/2016 [facility] Lymphocytes 28.2 % 20.0 - 40.0 06/19/2016 [facility] HEMATOLOGY Segs 61.1 % 45.0 - 75.0 06/19/2016 [facility] Hgb 11.9 g/dL 12.0 - 16.0 06/19/2016 [facility] RBC 4.71 M/CMM 4.20 - 5.40 06/19/2016 [facility] WBC 11.9 K/CMM 3.7 - 10.4 06/19/2016 [facility] MCH 25.4 pg 27.0 - 31.0 06/19/2016 [facility] MCV 79.6 fL 80.0 - 98.0 06/19/2016 [facility] HEMATOLOGY Hct 37.4 % 36.0 - 48.0 06/19/2016 [facility] HEMATOLOGY MCHC 31.9 g/dL 32.0 - 36.0 06/19/2016 [facility] HEMATOLOGY RDW 14.7 % 11.5 - 14.5 06/19/2016 [facility] HEMATOLOGY Platelet 326 K/CMM 133 - 450 06/19/2016 [facility] HEMATOLOGY MPV 9.0 fL 7.4 - 10.4 06/19/2016 [facility] URINE AND STOOL UA Bili Negative *NA* (06/18/16 8:33 PM) Negative 06/19/2016 [facility] URINE AND STOOL UA Leuk Est Negative (06/18/16 8:33 PM) Negative 06/19/2016 [facility] URINE AND STOOL UA Blood Small *ABN* (06/18/16 8:33 PM) Negative 06/19/2016 [facility] URINE AND STOOL UA Nitrite Negative (06/18/16 8:33 PM) Negative 06/19/2016 [facility] URINE AND STOOL UA Urobilinogen <=1.0 mg/dL 0.1 - 1.0 06/19/2016 [facility] URINE AND STOOL UA WBC 1 /HPF 0 - 5 06/19/2016 [facility] URINE AND STOOL UA RBC 1 /HPF 0 - 2 06/19/2016 [facility] URINE AND STOOL UA Color Ltyellow 06/19/2016 [facility] URINE AND STOOL UA Sq Epi Occasional /LPF Few /LPF 06/19/2016 [facility] URINE AND STOOL UA Spec Grav 1.026 <=1.030 06/19/2016 [facility] URINE AND STOOL UA pH 6.0 5.0 - 8.0 06/19/2016 [facility] URINE AND STOOL UA Turbidity Clear (06/18/16 8:33 PM) Clear 06/19/2016 [facility] URINE AND STOOL UA Ketones Negative mg/dL Negative mg/dL 06/19/2016 [facility] URINE AND STOOL UA Glucose 500 mg/dL Negative mg/dL 06/19/2016 [facility] URINE AND STOOL UA Protein Negative mg/dL Negative mg/dL 06/19/2016 [facility] Brain wo contrast CT Brain wo contrast CT Study: Brain wo contrast CT 06/18/2016 9:40 PM CDT Ordering Physician: Ángela Gloria DO Clinical Indication: Blurry vision Comparison: None TECHNIQUE: CT images are obtained from the foramen magnum to the vertex on a multidetector CT. Sagittal and coronal reformats are acquired. CT radiation dose DLP: 901 mGy-cm. FINDINGS: Ventricles, sulci and basal cisterns are within normal limits for age. The moy- white junction is intact. No encephalomalacic changes are seen. There is no evidence for intracranial mass, mass effect or extra-axial fluid collection. There is no evidence for intracranial hemorrhage. The skull is intact. Visualized paranasal sinuses are clear. Mastoid air cells are clear. Orbital structures are grossly unremarkable. IMPRESSION: Normal computed tomography scan of the brain without contrast. SL: [id number] 06/18/2016 - - Read by: Jessica Mcgregor MD Dictated Date/time: 06/18/16 23:03 Electronically Signed by: Jessica Mcgregor MD 06/18/16 23:05 FINAL REPORT [facility] Chest 2 views DX Chest 2 views DX Patient Name: ROXANA HUERTA : 1985; Age: 30 years y/o Female MR: [id number] Study: Chest 2 views DX 06/18/2016 8:18 PM CDT Ordering Physician: Clinical Indication: Chest pain; Comparison: 04/18/2016 Two-view chest Lungs are clear. Heart size normal. No pleural effusion or pneumothorax. No osseous abnormalities. IMPRESSION: Negative. SL: [email or web address] 06/18/2016 - - Read by: Darius Sahu MD Dictated Date/time: 06/18/16 20:40 Electronically Signed by: Darius Sahu MD 06/18/16 20:40 FINAL REPORT [facility] URINE AND STOOL UA Urobilinogen <=1.0 mg/dL 0.1 - 1.0 05/25/2016 [facility] URINE AND STOOL UA Color Ltyellow 05/25/2016 [facility] URINE AND STOOL UA Bacteria Occasional /HPF None Seen /HPF 05/25/2016 [facility] URINE AND STOOL UA RBC 2 /HPF 0 - 2 05/25/2016 [facility] URINE AND STOOL UA WBC 13 /HPF 0 - 5 05/25/2016 [facility] URINE AND STOOL UA Protein Negative mg/dL Negative mg/dL 05/25/2016 [facility] URINE AND STOOL UA Ketones Trace mg/dL Negative mg/dL 05/25/2016 [facility] URINE AND STOOL UA Bili Negative *NA* (05/25/16 8:38 AM) Negative 05/25/2016 [facility] URINE AND STOOL UA Glucose 150 mg/dL Negative mg/dL 05/25/2016 [facility] URINE AND STOOL UA Blood Negative (05/25/16 8:38 AM) Negative 05/25/2016 [facility] URINE AND STOOL UA Nitrite Negative (05/25/16 8:38 AM) Negative 05/25/2016 [facility] URINE AND STOOL UA Leuk Est Large *ABN* (05/25/16 8:38 AM) Negative 05/25/2016 [facility] URINE AND STOOL UA Sq Epi Moderate /LPF Few /LPF 05/25/2016 [facility] URINE AND STOOL UA pH 6.0 5.0 - 8.0 05/25/2016 [facility] URINE AND STOOL UA Spec Grav 1.014 <=1.030 05/25/2016 [facility] URINE AND STOOL UA Turbidity Clear (05/25/16 8:38 AM) Clear 05/25/2016 [facility] URINE CHEM U Preg Negative (05/25/16 8:38 AM) Negative 05/25/2016 [facility] CHEM PANEL A/G Ratio 0.9 0.7 - 1.6 05/25/2016 [facility] CHEM PANEL Globulin 3.8 g/dL 2.7 - 4.2 05/25/2016 [facility] CHEM PANEL B/C Ratio 16 6 - 25 05/25/2016 [facility] CHEM PANEL AGAP 11.1 meq/L 10.0 - 20.0 05/25/2016 [facility] CHEM PANEL eGFR 87 mL/min/1.73m2 05/25/2016 Result Comment: The eGFR is calculated using the CKD-EPI formula. In most young, healthy individuals the eGFR will be >90 mL/min/1.73m2. The eGFR declines with age. An eGFR of 60-89 may be normal in some populations, particularly the elderly, for whom the CKD-EPI formula has not been extensively validated. Use of the eGFR is not recommended in the following populations: Individuals with unstable creatinine concentrations, including patients and those with serious co-morbid conditions. Patients with extremes in muscle mass or diet. The data above are obtained from the National Kidney Disease Education Program (NKDEP) which additionally recommends that when the eGFR is used in patients with extremes of body mass index for purposes of drug dosing, the eGFR should be multiplied by the estimated BMI. [facility] CHEM PANEL BUN 14 mg/dL 7 - 22 05/25/2016 [facility] CHEM PANEL Glucose Lvl 225 mg/dL 70 - 99 05/25/2016 [facility] CHEM PANEL Total Protein 7.1 g/dL 6.4 - 8.4 05/25/2016 [facility] CHEM PANEL CO2 25 meq/L 24 - 32 05/25/2016 [facility] CHEM PANEL Calcium Lvl 8.5 mg/dL 8.5 - 10.5 05/25/2016 [facility] CHEM PANEL Chloride Lvl 102 meq/L 95 - 109 05/25/2016 [facility] CHEM PANEL Potassium Lvl 4.1 meq/L 3.5 - 5.1 05/25/2016 [facility] CHEM PANEL Sodium Lvl 134 meq/L 135 - 145 05/25/2016 [facility] CHEM PANEL Creatinine Lvl 0.89 mg/dL 0.50 - 1.40 05/25/2016 [facility] CHEM PANEL Alk Phos 85 unit/L 39 - 136 05/25/2016 [facility] CHEM PANEL AST 14 unit/L 0 - 37 05/25/2016 [facility] CHEM PANEL ALT 27 unit/L 0 - 65 05/25/2016 [facility] CHEM PANEL Albumin Lvl 3.3 g/dL 3.5 - 5.0 05/25/2016 [facility] CHEM PANEL Bili Total 0.2 mg/dL 0.2 - 1.3 05/25/2016 [facility] HEMATOLOGY Basophils # 0.1 K/CMM 0.0 - 0.2 05/25/2016 [facility] HEMATOLOGY Eosinophils # 0.3 K/CMM 0.0 - 0.5 05/25/2016 [facility] HEMATOLOGY Monocytes # 0.7 K/CMM 0.0 - 0.8 05/25/2016 [facility] HEMATOLOGY Lymphocytes # 3.1 K/CMM 1.0 - 5.5 05/25/2016 [facility] HEMATOLOGY Segs-Bands # 5.8 K/CMM 1.5 - 8.1 05/25/2016 [facility] HEMATOLOGY Eosinophils 3.2 % 0.0 - 4.0 05/25/2016 [facility] HEMATOLOGY Basophils 0.8 % 0.0 - 1.0 05/25/2016 [facility] HEMATOLOGY Lymphocytes 31.1 % 20.0 - 40.0 05/25/2016 [facility] HEMATOLOGY Monocytes 6.5 % 2.0 - 12.0 05/25/2016 [facility] HEMATOLOGY Segs 58.4 % 45.0 - 75.0 05/25/2016 [facility] HEMATOLOGY Platelet 296 K/CMM 133 - 450 05/25/2016 [facility] HEMATOLOGY MPV 9.0 fL 7.4 - 10.4 05/25/2016 [facility] HEMATOLOGY RDW 14.5 % 11.5 - 14.5 05/25/2016 [facility] HEMATOLOGY MCHC 32.4 g/dL 32.0 - 36.0 05/25/2016 [facility] MCH 25.6 pg 27.0 - 31.0 05/25/2016 [facility] HEMATOLOGY MCV 79.0 fL 80.0 - 98.0 05/25/2016 [facility] HEMATOLOGY Hct 37.8 % 36.0 - 48.0 05/25/2016 [facility] HEMATOLOGY Hgb 12.3 g/dL 12.0 - 16.0 05/25/2016 [facility] HEMATOLOGY RBC 4.79 M/CMM 4.20 - 5.40 05/25/2016 [facility] HEMATOLOGY WBC 10.0 K/CMM 3.7 - 10.4 05/25/2016 [facility] CARDIAC ENZYMES Total CK 65 unit/L 12 - 191 04/20/2016 [facility] CHEM PANEL Bili Total 0.4 mg/dL 0.2 - 1.3 04/20/2016 [facility] CHEM PANEL eGFR 106 mL/min/1.73m2 04/20/2016 Result Comment: The eGFR is calculated using the CKD-EPI formula. In most young, healthy individuals the eGFR will be >90 mL/min/1.73m2. The eGFR declines with age. An eGFR of 60-89 may be normal in some populations, particularly the elderly, for whom the CKD-EPI formula has not been extensively validated. Use of the eGFR is not recommended in the following populations: Individuals with unstable creatinine concentrations, including patients and those with serious co-morbid conditions. Patients with extremes in muscle mass or diet. The data above are obtained from the National Kidney Disease Education Program (NKDEP) which additionally recommends that when the eGFR is used in patients with extremes of body mass index for purposes of drug dosing, the eGFR should be multiplied by the estimated BMI. [facility] CHEM PANEL Glucose Lvl 166 mg/dL 70 - 99 04/20/2016 [facility] CHEM PANEL Creatinine Lvl 0.75 mg/dL 0.50 - 1.40 04/20/2016 [facility] CHEM PANEL BUN 14 mg/dL 7 - 22 04/20/2016 [facility] CHEM PANEL Sodium Lvl 136 meq/L 135 - 145 04/20/2016 [facility] CHEM PANEL CO2 25 meq/L 24 - 32 04/20/2016 [facility] CHEM PANEL Chloride Lvl 102 meq/L 95 - 109 04/20/2016 [facility] CHEM PANEL Potassium Lvl 3.7 meq/L 3.5 - 5.1 04/20/2016 [facility] CHEM PANEL Calcium Lvl 8.7 mg/dL 8.5 - 10.5 04/20/2016 [facility] CHEM PANEL Total Protein 7.3 g/dL 6.4 - 8.4 04/20/2016 [facility] CHEM PANEL Alk Phos 73 unit/L 39 - 136 04/20/2016 [facility] CHEM PANEL AST 29 unit/L 0 - 37 04/20/2016 [facility] CHEM PANEL ALT 35 unit/L 0 - 65 04/20/2016 [facility] CHEM PANEL Albumin Lvl 3.4 g/dL 3.5 - 5.0 04/20/2016 [facility] CHEM PANEL A/G Ratio 0.9 0.7 - 1.6 04/20/2016 [facility] CHEM PANEL Globulin 3.9 g/dL 2.7 - 4.2 04/20/2016 [facility] CHEM PANEL B/C Ratio 19 6 - 25 04/20/2016 [facility] CHEM PANEL AGAP 12.7 meq/L 10.0 - 20.0 04/20/2016 [facility] HEMATOLOGY Monocytes # 0.7 K/CMM 0.0 - 0.8 04/20/2016 [facility] HEMATOLOGY Eosinophils # 0.3 K/CMM 0.0 - 0.5 04/20/2016 [facility] HEMATOLOGY Segs 58.6 % 45.0 - 75.0 04/20/2016 [facility] HEMATOLOGY Basophils 0.2 % 0.0 - 1.0 04/20/2016 [facility] HEMATOLOGY Lymphocytes 31.7 % 20.0 - 40.0 04/20/2016 [facility] HEMATOLOGY Lymphocytes # 3.4 K/CMM 1.0 - 5.5 04/20/2016 [facility] HEMATOLOGY Segs-Bands # 6.2 K/CMM 1.5 - 8.1 04/20/2016 [facility] HEMATOLOGY Eosinophils 2.9 % 0.0 - 4.0 04/20/2016 [facility] HEMATOLOGY Monocytes 6.6 % 2.0 - 12.0 04/20/2016 [facility] HEMATOLOGY RBC 4.64 M/CMM 4.20 - 5.40 04/20/2016 [facility] HEMATOLOGY Hgb 12.0 g/dL 12.0 - 16.0 04/20/2016 [facility] HEMATOLOGY WBC 10.6 K/CMM 3.7 - 10.4 04/20/2016 [facility] HEMATOLOGY Hct 37.1 % 36.0 - 48.0 04/20/2016 [facility] HEMATOLOGY MCV 80.1 fL 80.0 - 98.0 04/20/2016 [facility] HEMATOLOGY MCH 25.8 pg 27.0 - 31.0 04/20/2016 [facility] MCHC 32.2 g/dL 32.0 - 36.0 04/20/2016 [facility] HEMATOLOGY RDW 14.8 % 11.5 - 14.5 04/20/2016 [facility] HEMATOLOGY Platelet 319 K/CMM 133 - 450 04/20/2016 [facility] MPV 8.9 fL 7.4 - 10.4 04/20/2016 [facility] URINE AND STOOL UA Color Ltyellow 04/20/2016 [facility] URINE AND STOOL UA Urobilinogen <=1.0 mg/dL 0.1 - 1.0 04/20/2016 [facility] URINE AND STOOL UA Sq Epi Occasional /LPF Few /LPF 04/20/2016 [facility] URINE AND STOOL UA Leuk Est Large *ABN* (04/20/16 2:43 AM) Negative 04/20/2016 [facility] URINE AND STOOL UA Bacteria Occasional /HPF None Seen /HPF 04/20/2016 [facility] URINE AND STOOL UA RBC 6 /HPF 0 - 2 04/20/2016 [facility] URINE AND STOOL UA WBC 49 /HPF 0 - 5 04/20/2016 [facility] URINE AND STOOL UA Glucose Negative mg/dL Negative mg/dL 04/20/2016 [facility] URINE AND STOOL UA Nitrite Negative (04/20/16 2:43 AM) Negative 04/20/2016 [facility] URINE AND STOOL UA Blood Small *ABN* (04/20/16 2:43 AM) Negative 04/20/2016 [facility] URINE AND STOOL UA Bili Negative *NA* (04/20/16 2:43 AM) Negative 04/20/2016 [facility] URINE AND STOOL UA Ketones Negative mg/dL Negative mg/dL 04/20/2016 [facility] URINE AND STOOL UA Spec Grav 1.009 <=1.030 04/20/2016 [facility] URINE AND STOOL UA Turbidity Clear (04/20/16 2:43 AM) Clear 04/20/2016 [facility] URINE AND STOOL UA pH 6.0 5.0 - 8.0 04/20/2016 [facility] URINE AND STOOL UA Protein Negative mg/dL Negative mg/dL 04/20/2016 [facility] URINE CHEM U Preg Negative (04/20/16 2:43 AM) Negative 04/20/2016 [facility] CARDIAC ENZYMES Total CK 86 unit/L 12 - 191 04/19/2016 [facility] CHEM PANEL BUN 14 mg/dL 7 - 22 04/19/2016 [facility] CHEM PANEL Glucose Lvl 186 mg/dL 70 - 99 04/19/2016 [facility] CHEM PANEL Albumin Lvl 3.6 g/dL 3.5 - 5.0 04/19/2016 [facility] CHEM PANEL Total Protein 7.8 g/dL 6.4 - 8.4 04/19/2016 [facility] CHEM PANEL Calcium Lvl 8.4 mg/dL 8.5 - 10.5 04/19/2016 [facility] CHEM PANEL CO2 22 meq/L 24 - 32 04/19/2016 [facility] CHEM PANEL Chloride Lvl 106 meq/L 95 - 109 04/19/2016 [facility] CHEM PANEL Potassium Lvl 3.5 meq/L 3.5 - 5.1 04/19/2016 [facility] CHEM PANEL Sodium Lvl 136 meq/L 135 - 145 04/19/2016 [facility] CHEM PANEL Creatinine Lvl 0.93 mg/dL 0.50 - 1.40 04/19/2016 [facility] CHEM PANEL ALT 37 unit/L 0 - 65 04/19/2016 [facility] CHEM PANEL Alk Phos 83 unit/L 39 - 136 04/19/2016 [facility] CHEM PANEL Bili Total 0.4 mg/dL 0.2 - 1.3 04/19/2016 [facility] CHEM PANEL AST 30 unit/L 0 - 37 04/19/2016 [facility] CHEM PANEL eGFR 82 mL/min/1.73m2 04/19/2016 Result Comment: The eGFR is calculated using the CKD-EPI formula. In most young, healthy individuals the eGFR will be >90 mL/min/1.73m2. The eGFR declines with age. An eGFR of 60-89 may be normal in some populations, particularly the elderly, for whom the CKD-EPI formula has not been extensively validated. Use of the eGFR is not recommended in the following populations: Individuals with unstable creatinine concentrations, including patients and those with serious co-morbid conditions. Patients with extremes in muscle mass or diet. The data above are obtained from the National Kidney Disease Education Program (NKDEP) which additionally recommends that when the eGFR is used in patients with extremes of body mass index for purposes of drug dosing, the eGFR should be multiplied by the estimated BMI. [facility] CHEM PANEL Globulin 4.2 g/dL 2.7 - 4.2 04/19/2016 [facility] CHEM PANEL B/C Ratio 15 6 - 25 04/19/2016 [facility] CHEM PANEL A/G Ratio 0.9 0.7 - 1.6 04/19/2016 [facility] CHEM PANEL AGAP 11.5 meq/L 10.0 - 20.0 04/19/2016 [facility] DRUG SCREEN UDS Note See Note *NA* (04/18/16 8:18 PM) 04/19/2016 [facility] DRUG SCREEN U Opiate Scr Negative *NA* (04/18/16 8:18 PM) Negative 04/19/2016 [facility] DRUG SCREEN U Cannab Scr Negative *NA* (04/18/16 8:18 PM) Negative 04/19/2016 [facility] DRUG SCREEN U Cocaine Scr Negative *NA* (04/18/16 8:18 PM) Negative 04/19/2016 [facility] DRUG SCREEN U Benzodia Scr Negative *NA* (04/18/16 8:18 PM) Negative 04/19/2016 [facility] DRUG SCREEN U Amph Scr Negative *NA* (04/18/16 8:18 PM) Negative 04/19/2016 [facility] DRUG SCREEN U Phencyc Scr Negative *NA* (04/18/16 8:18 PM) Negative 04/19/2016 [facility] DRUG SCREEN U Jocelyn Scr Negative *NA* (04/18/16 8:18 PM) Negative 04/19/2016 [facility] ENDOCRINOLOGY S Preg Negative *NA* (04/18/16 8:18 PM) Negative 04/19/2016 [facility] HEMATOLOGY Basophils 0.7 % 0.0 - 1.0 04/19/2016 [facility] HEMATOLOGY Segs 73.0 % 45.0 - 75.0 04/19/2016 [facility] HEMATOLOGY Eosinophils 1.3 % 0.0 - 4.0 04/19/2016 [facility] HEMATOLOGY Monocytes 4.6 % 2.0 - 12.0 04/19/2016 [facility] HEMATOLOGY Lymphocytes 20.4 % 20.0 - 40.0 04/19/2016 [facility] HEMATOLOGY Eosinophils # 0.2 K/CMM 0.0 - 0.5 04/19/2016 [facility] HEMATOLOGY Basophils # 0.1 K/CMM 0.0 - 0.2 04/19/2016 [facility] HEMATOLOGY Segs-Bands # 9.1 K/CMM 1.5 - 8.1 04/19/2016 [facility] HEMATOLOGY Monocytes # 0.6 K/CMM 0.0 - 0.8 04/19/2016 [facility] HEMATOLOGY Lymphocytes # 2.5 K/CMM 1.0 - 5.5 04/19/2016 [facility] MCHC 32.6 g/dL 32.0 - 36.0 04/19/2016 [facility] RDW 14.9 % 11.5 - 14.5 04/19/2016 [facility] Platelet 339 K/CMM 133 - 450 04/19/2016 [facility] MPV 8.9 fL 7.4 - 10.4 04/19/2016 [facility] HEMATOLOGY RBC 4.77 M/CMM 4.20 - 5.40 04/19/2016 [facility] Hct 37.8 % 36.0 - 48.0 04/19/2016 [facility] Hgb 12.3 g/dL 12.0 - 16.0 04/19/2016 [facility] MCV 79.3 fL 80.0 - 98.0 04/19/2016 [facility] MCH 25.8 pg 27.0 - 31.0 04/19/2016 [facility] WBC 12.4 K/CMM 3.7 - 10.4 04/19/2016 [facility] URINE AND STOOL UA Urobilinogen <=1.0 mg/dL 0.1 - 1.0 04/19/2016 [facility] URINE AND STOOL UA Color Colorless 04/19/2016 [facility] URINE AND STOOL UA WBC 2 /HPF 0 - 5 04/19/2016 [facility] URINE AND STOOL UA RBC 1 /HPF 0 - 2 04/19/2016 [facility] URINE AND STOOL UA pH 6.0 5.0 - 8.0 04/19/2016 [facility] URINE AND STOOL UA Spec Grav 1.003 <=1.030 04/19/2016 [facility] URINE AND STOOL UA Sq Epi Occasional /LPF Few /LPF 04/19/2016 [facility] URINE AND STOOL UA Nitrite Negative (04/18/16 8:18 PM) Negative 04/19/2016 [facility] URINE AND STOOL UA Turbidity Clear (04/18/16 8:18 PM) Clear 04/19/2016 [facility] URINE AND STOOL UA Bili Negative *NA* (04/18/16 8:18 PM) Negative 04/19/2016 [facility] URINE AND STOOL UA Glucose Negative mg/dL Negative mg/dL 04/19/2016 [facility] URINE AND STOOL UA Ketones Negative mg/dL Negative mg/dL 04/19/2016 [facility] URINE AND STOOL UA Blood Small *ABN* (04/18/16 8:18 PM) Negative 04/19/2016 [facility] URINE AND STOOL UA Protein Negative mg/dL Negative mg/dL 04/19/2016 [facility] URINE AND STOOL UA Leuk Est Trace *ABN* (04/18/16 8:18 PM) Negative 04/19/2016 [facility] Chest 1view DX Chest 1view DX Patient Name: ROXANA HUERTA : 1985; Age: 30 years Female MR: [id number] Study: Chest 1view DX Order Time: 04/18/2016 7:46 PM CDT Clinical Indication: Chest pain. COMPARISON: 04/21/2015. June 2014. 11/10/2011. 11/09/2011. FINDINGS: Views: 1 LUNGS: There is normal lung volume. There are no suspicious interstitial/airspace opacities. There are no pleural effusions. There is no pneumothorax. The pulmonary vasculature is normal. MEDIASTINUM: The cardiac silhouette is normal. The trachea is midline. BONES: There are no clinically significant osseous abnormalities noted. IMPRESSION: No radiographic evidence of acute pulmonary disease. SL: CANDY 04/18/2016 - - Read by: Paco Whiteside MD Dictated Date/time: 04/18/16 21:20 Electronically Signed by: Paco Whiteside MD 04/18/16 21:21 FINAL REPORT [facility] CHEM PANEL Lipase Lvl 143 unit/L 73 - 393 03/21/2016 [facility] CHEM PANEL B/C Ratio 14 6 - 25 03/21/2016 [facility] CHEM PANEL Globulin 4.4 g/dL 2.0 - 4.0 03/21/2016 [facility] CHEM PANEL A/G Ratio 0.8 0.7 - 1.6 03/21/2016 [facility] CHEM PANEL AGAP 13.8 meq/L 10.0 - 20.0 03/21/2016 [facility] CHEM PANEL eGFR 107 mL/min/1.73m2 03/21/2016 Result Comment: The eGFR is calculated using the CKD-EPI formula. In most young, healthy individuals the eGFR will be >90 mL/min/1.73m2. The eGFR declines with age. An eGFR of 60-89 may be normal in some populations, particularly the elderly, for whom the CKD-EPI formula has not been extensively validated. Use of the eGFR is not recommended in the following populations: Individuals with unstable creatinine concentrations, including patients and those with serious co-morbid conditions. Patients with extremes in muscle mass or diet. The data above are obtained from the National Kidney Disease Education Program (NKDEP) which additionally recommends that when the eGFR is used in patients with extremes of body mass index for purposes of drug dosing, the eGFR should be multiplied by the estimated BMI. [facility] CHEM PANEL Total Protein 8.0 g/dL 6.4 - 8.4 03/21/2016 [facility] CHEM PANEL Albumin Lvl 3.6 g/dL 3.5 - 5.0 03/21/2016 [facility] CHEM PANEL CO2 26 meq/L 24 - 32 03/21/2016 [facility] CHEM PANEL Calcium Lvl 8.6 mg/dL 8.5 - 10.5 03/21/2016 [facility] CHEM PANEL Chloride Lvl 102 meq/L 95 - 109 03/21/2016 [facility] CHEM PANEL Creatinine Lvl 0.74 mg/dL 0.50 - 1.40 03/21/2016 [facility] CHEM PANEL Sodium Lvl 138 meq/L 135 - 145 03/21/2016 [facility] CHEM PANEL BUN 10 mg/dL 7 - 22 03/21/2016 [facility] CHEM PANEL Potassium Lvl 3.8 meq/L 3.5 - 5.1 03/21/2016 [facility] CHEM PANEL Alk Phos 83 unit/L 39 - 136 03/21/2016 [facility] CHEM PANEL Glucose Lvl 152 mg/dL 70 - 99 03/21/2016 [facility] CHEM PANEL AST 33 unit/L 0 - 37 03/21/2016 [facility] CHEM PANEL Bili Total 0.4 mg/dL 0.2 - 1.3 03/21/2016 [facility] CHEM PANEL ALT 43 unit/L 0 - 65 03/21/2016 [facility] HEMATOLOGY Basophils # 0.1 K/CMM 0.0 - 0.2 03/21/2016 [facility] HEMATOLOGY Eosinophils # 0.3 K/CMM 0.0 - 0.5 03/21/2016 [facility] HEMATOLOGY Monocytes # 0.5 K/CMM 0.0 - 0.8 03/21/2016 [facility] HEMATOLOGY Eosinophils 2.6 % 0.0 - 4.0 03/21/2016 [facility] HEMATOLOGY Monocytes 4.6 % 2.0 - 12.0 03/21/2016 [facility] HEMATOLOGY Lymphocytes # 2.8 K/CMM 1.0 - 5.5 03/21/2016 [facility] HEMATOLOGY Segs-Bands # 6.3 K/CMM 1.5 - 8.1 03/21/2016 [facility] Basophils 0.5 % 0.0 - 1.0 03/21/2016 [facility] Lymphocytes 28.6 % 20.0 - 40.0 03/21/2016 [facility] Segs 63.7 % 45.0 - 75.0 03/21/2016 [facility] MPV 9.0 fL 7.4 - 10.4 03/21/2016 [facility] Platelet 342 K/CMM 133 - 450 03/21/2016 [facility] Hgb 13.1 g/dL 12.0 - 16.0 03/21/2016 [facility] RBC 5.07 M/CMM 4.20 - 5.40 03/21/2016 [facility] Hct 40.6 % 36.0 - 48.0 03/21/2016 [facility] MCH 25.8 pg 27.0 - 31.0 03/21/2016 [facility] MCV 80.0 fL 80.0 - 98.0 03/21/2016 [facility] RDW 15.2 % 11.5 - 14.5 03/21/2016 [facility] MCHC 32.3 g/dL 32.0 - 36.0 03/21/2016 [facility] WBC 9.9 K/CMM 3.7 - 10.4 03/21/2016 [facility] URINE AND STOOL UA Urobilinogen <=1.0 mg/dL 0.1 - 1.0 03/21/2016 [facility] URINE AND STOOL UA Ketones Negative mg/dL Negative mg/dL 03/21/2016 [facility] URINE AND STOOL UA WBC 173 /HPF 0 - 5 03/21/2016 [facility] URINE AND STOOL UA RBC 25 /HPF 0 - 2 03/21/2016 [facility] URINE AND STOOL UA Sq Epi Many /LPF Few /LPF 03/21/2016 [facility] URINE AND STOOL UA Leuk Est Large *ABN* (03/21/16 4:54 PM) Negative 03/21/2016 [facility] URINE AND STOOL UA Nitrite Negative (03/21/16 4:54 PM) Negative 03/21/2016 [facility] URINE AND STOOL UA Blood Moderate *ABN* (03/21/16 4:54 PM) Negative 03/21/2016 [facility] URINE AND STOOL UA Mucus Few /LPF None Seen /LPF 03/21/2016 [facility] URINE AND STOOL UA Bili Negative *NA* (03/21/16 4:54 PM) Negative 03/21/2016 [facility] URINE AND STOOL UA Color Yellow *NA* (03/21/16 4:54 PM) Yellow 03/21/2016 [facility] URINE AND STOOL UA Glucose Negative mg/dL Negative mg/dL 03/21/2016 [facility] URINE AND STOOL UA Turbidity Marked *ABN* (03/21/16 4:54 PM) Clear 03/21/2016 [facility] URINE AND STOOL UA Spec Grav 1.024 <=1.030 03/21/2016 [facility] URINE AND STOOL UA pH 5.0 5.0 - 8.0 03/21/2016 [facility] URINE AND STOOL UA Protein 30 mg/dL Negative mg/dL 03/21/2016 [facility] URINE CHEM U Preg Negative (03/21/16 4:54 PM) Negative 03/21/2016 [facility] Renal Stone CT Renal Stone CT EXAM: CT renal stone HISTORY: Acute right lower abdominal pain, possible renal stone COMPARISON: [place] [id number] TECHNIQUE: Axial images of the abdomen and pelvis with sagittal and coronal reformats. No contrast. FINDINGS: No renal, ureteral or bladder stone. No hydronephrosis. Normal appendix. Focal mildly distended fluid-filled small bowel loop left abdomen. Cholecystectomy. Fatty liver. The spleen, adrenals and pancreas appear unremarkable. No free fluid. Lung bases are clear. Bones are intact. IMPRESSION: 1. No urinary stone is seen. 2. Focal mildly distended small bowel loop in the left abdomen is nonspecific, follow- up abdominal radiographs can be obtained to exclude a developing mild partial small bowel obstruction. 3. Fatty liver. SL: [id number] 03/21/2016 - - Read by: Troy Donis MD Dictated Date/time: 03/21/16 18:39 Electronically Signed by: Troy Donis MD 03/21/16 18:48 FINAL REPORT [facility] CHEM PANEL AST 11 unit/L 0 - 37 12/05/2015 [facility] CHEM PANEL CO2 27 meq/L 24 - 32 12/05/2015 [facility] CHEM PANEL AGAP 9.8 meq/L 10.0 - 20.0 12/05/2015 [facility] CHEM PANEL Calcium Lvl 7.7 mg/dL 8.5 - 10.5 12/05/2015 [facility] CHEM PANEL ALT 26 unit/L 0 - 65 12/05/2015 [facility] CHEM PANEL A/G Ratio 0.9 0.7 - 1.6 12/05/2015 [facility] CHEM PANEL Albumin Lvl 2.9 g/dL 3.5 - 5.0 12/05/2015 [facility] CHEM PANEL Globulin 3.1 g/dL 2.0 - 4.0 12/05/2015 [facility] CHEM PANEL eGFR 116 mL/min/1.73m2 12/05/2015 Result Comment: The eGFR is calculated using the CKD-EPI formula. In most young, healthy individuals the eGFR will be >90 mL/min/1.73m2. The eGFR declines with age. An eGFR of 60-89 may be normal in some populations, particularly the elderly, for whom the CKD-EPI formula has not been extensively validated. Use of the eGFR is not recommended in the following populations: Individuals with unstable creatinine concentrations, including patients and those with serious co-morbid conditions. Patients with extremes in muscle mass or diet. The data above are obtained from the National Kidney Disease Education Program (NKDEP) which additionally recommends that when the eGFR is used in patients with extremes of body mass index for purposes of drug dosing, the eGFR should be multiplied by the estimated BMI. [facility] CHEM PANEL Alk Phos 57 unit/L 39 - 136 12/05/2015 [facility] CHEM PANEL Bili Total 0.3 mg/dL 0.2 - 1.3 12/05/2015 [facility] CHEM PANEL B/C Ratio 16 6 - 25 12/05/2015 [facility] CHEM PANEL Total Protein 6.0 g/dL 6.4 - 8.4 12/05/2015 [facility] CHEM PANEL Chloride Lvl 109 meq/L 95 - 109 12/05/2015 [facility] CHEM PANEL Creatinine Lvl 0.69 mg/dL 0.50 - 1.40 12/05/2015 [facility] CHEM PANEL Potassium Lvl 3.8 meq/L 3.5 - 5.1 12/05/2015 [facility] CHEM PANEL BUN 11 mg/dL 7 - 22 12/05/2015 [facility] CHEM PANEL Sodium Lvl 142 meq/L 135 - 145 12/05/2015 [facility] CHEM PANEL Glucose Lvl 155 mg/dL 70 - 99 12/05/2015 [facility] HEMATOLOGY MPV 8.9 fL 7.4 - 10.4 12/05/2015 [facility] HEMATOLOGY Platelet 285 K/CMM 133 - 450 12/05/2015 [facility] MCHC 31.8 g/dL 32.0 - 36.0 12/05/2015 [facility] HEMATOLOGY RDW 14.8 % 11.5 - 14.5 12/05/2015 [facility] Hct 32.3 % 36.0 - 48.0 12/05/2015 [facility] MCH 25.5 pg 27.0 - 31.0 12/05/2015 [facility] HEMATOLOGY MCV 80.2 fL 80.0 - 98.0 12/05/2015 [facility] HEMATOLOGY WBC 11.4 K/CMM 3.7 - 10.4 12/05/2015 [facility] HEMATOLOGY RBC 4.03 M/CMM 4.20 - 5.40 12/05/2015 [facility] Hgb 10.3 g/dL 12.0 - 16.0 12/05/2015 [facility] Lymphocytes 31.4 % 20.0 - 40.0 12/05/2015 [facility] Monocytes # 0.7 K/CMM 0.0 - 0.8 12/05/2015 [facility] HEMATOLOGY Lymphocytes # 3.6 K/CMM 1.0 - 5.5 12/05/2015 [facility] HEMATOLOGY Segs-Bands # 6.9 K/CMM 1.5 - 8.1 12/05/2015 [facility] HEMATOLOGY Basophils 0.5 % 0.0 - 1.0 12/05/2015 [facility] HEMATOLOGY Monocytes 6.5 % 2.0 - 12.0 12/05/2015 [facility] HEMATOLOGY Basophils # 0.1 K/CMM 0.0 - 0.2 12/05/2015 [facility] HEMATOLOGY Eosinophils # 0.2 K/CMM 0.0 - 0.5 12/05/2015 [facility] HEMATOLOGY Segs 60.0 % 45.0 - 75.0 12/05/2015 [facility] HEMATOLOGY Eosinophils 1.6 % 0.0 - 4.0 12/05/2015 [facility] CHEM PANEL eGFR 119 mL/min/1.73m2 12/04/2015 Result Comment: The eGFR is calculated using the CKD-EPI formula. In most young, healthy individuals the eGFR will be >90 mL/min/1.73m2. The eGFR declines with age. An eGFR of 60-89 may be normal in some populations, particularly the elderly, for whom the CKD-EPI formula has not been extensively validated. Use of the eGFR is not recommended in the following populations: Individuals with unstable creatinine concentrations, including patients and those with serious co-morbid conditions. Patients with extremes in muscle mass or diet. The data above are obtained from the National Kidney Disease Education Program (NKDEP) which additionally recommends that when the eGFR is used in patients with extremes of body mass index for purposes of drug dosing, the eGFR should be multiplied by the estimated BMI. [facility] CHEM PANEL Total Protein 6.7 g/dL 6.4 - 8.4 12/04/2015 [facility] CHEM PANEL AGAP 12.1 meq/L 10.0 - 20.0 12/04/2015 [facility] CHEM PANEL CO2 26 meq/L 24 - 32 12/04/2015 [facility] CHEM PANEL B/C Ratio 12 6 - 25 12/04/2015 [facility] CHEM PANEL Calcium Lvl 8.1 mg/dL 8.5 - 10.5 12/04/2015 [facility] CHEM PANEL Chloride Lvl 103 meq/L 95 - 109 12/04/2015 [facility] CHEM PANEL Sodium Lvl 137 meq/L 135 - 145 12/04/2015 [facility] CHEM PANEL Creatinine Lvl 0.64 mg/dL 0.50 - 1.40 12/04/2015 [facility] CHEM PANEL BUN 8 mg/dL 7 - 22 12/04/2015 [facility] CHEM PANEL Potassium Lvl 4.1 meq/L 3.5 - 5.1 12/04/2015 [facility] CHEM PANEL Bili Total 0.7 mg/dL 0.2 - 1.3 12/04/2015 [facility] CHEM PANEL Alk Phos 68 unit/L 39 - 136 12/04/2015 [facility] CHEM PANEL Albumin Lvl 3.0 g/dL 3.5 - 5.0 12/04/2015 [facility] CHEM PANEL A/G Ratio 0.8 0.7 - 1.6 12/04/2015 [facility] CHEM PANEL Globulin 3.7 g/dL 2.0 - 4.0 12/04/2015 [facility] CHEM PANEL AST 22 unit/L 0 - 37 12/04/2015 [facility] CHEM PANEL ALT 35 unit/L 0 - 65 12/04/2015 [facility] CHEM PANEL Glucose Lvl 163 mg/dL 70 - 99 12/04/2015 [facility] HEMATOLOGY MCH 25.4 pg 27.0 - 31.0 12/04/2015 [facility] HEMATOLOGY MCV 79.7 fL 80.0 - 98.0 12/04/2015 [facility] MCHC 31.9 g/dL 32.0 - 36.0 12/04/2015 [facility] Hct 35.0 % 36.0 - 48.0 12/04/2015 [facility] MPV 8.8 fL 7.4 - 10.4 12/04/2015 [facility] Hgb 11.1 g/dL 12.0 - 16.0 12/04/2015 [facility] Platelet 331 K/CMM 133 - 450 12/04/2015 [facility] HEMATOLOGY RDW 14.9 % 11.5 - 14.5 12/04/2015 [facility] HEMATOLOGY RBC 4.39 M/CMM 4.20 - 5.40 12/04/2015 [facility] WBC 16.6 K/CMM 3.7 - 10.4 12/04/2015 [facility] HEMATOLOGY Eosinophils 0.2 % 0.0 - 4.0 12/04/2015 [facility] HEMATOLOGY Basophils 0.3 % 0.0 - 1.0 12/04/2015 [facility] HEMATOLOGY Segs-Bands # 13.8 K/CMM 1.5 - 8.1 12/04/2015 [facility] HEMATOLOGY Monocytes # 0.8 K/CMM 0.0 - 0.8 12/04/2015 [facility] HEMATOLOGY Lymphocytes # 1.9 K/CMM 1.0 - 5.5 12/04/2015 [facility] HEMATOLOGY Monocytes 4.8 % 2.0 - 12.0 12/04/2015 [facility] HEMATOLOGY Segs 83.5 % 45.0 - 75.0 12/04/2015 [facility] HEMATOLOGY Lymphocytes 11.2 % 20.0 - 40.0 12/04/2015 [facility] ANEMIA STUDY Vitamin B12 Lvl 443 pg/mL 254 - 1320 12/04/2015 [facility] ANEMIA STUDY Iron 49 ug/dl 30 - 160 12/04/2015 [facility] ANEMIA STUDY % Satur Fe 13 % 12 - 57 12/04/2015 [facility] ANEMIA STUDY TIBC 382 ug/dl 228 - 428 12/04/2015 [facility] ANEMIA STUDY UIBC 333 ug/dl 110 - 370 12/04/2015 [facility] CHEM PANEL Magnesium Lvl 2.0 mg/dL 1.8 - 2.4 12/03/2015 [facility] CHEM PANEL Phosphorus 2.5 mg/dL 2.5 - 4.5 12/03/2015 [facility] ELECTROLYTES AGAP 11.6 meq/L 10.0 - 20.0 12/03/2015 [facility] ELECTROLYTES Globulin 3.7 g/dL 2.0 - 4.0 12/03/2015 [facility] ELECTROLYTES B/C Ratio 16 6 - 25 12/03/2015 [facility] ELECTROLYTES A/G Ratio 0.9 0.7 - 1.6 12/03/2015 [facility] eGFR 121 mL/min/1.73m2 12/03/2015 Result Comment: The eGFR is calculated using the CKD-EPI formula. In most young, healthy individuals the eGFR will be >90 mL/min/1.73m2. The eGFR declines with age. An eGFR of 60-89 may be normal in some populations, particularly the elderly, for whom the CKD-EPI formula has not been extensively validated. Use of the eGFR is not recommended in the following populations: Individuals with unstable creatinine concentrations, including patients and those with serious co-morbid conditions. Patients with extremes in muscle mass or diet. The data above are obtained from the National Kidney Disease Education Program (NKDEP) which additionally recommends that when the eGFR is used in patients with extremes of body mass index for purposes of drug dosing, the eGFR should be multiplied by the estimated BMI. [facility] ELECTROLYTES Bili Total 0.4 mg/dL 0.2 - 1.3 12/03/2015 [facility] ELECTROLYTES Alk Phos 72 unit/L 39 - 136 12/03/2015 [facility] ELECTROLYTES CO2 26 meq/L 24 - 32 12/03/2015 [facility] ELECTROLYTES Chloride Lvl 105 meq/L 95 - 109 12/03/2015 [facility] ELECTROLYTES ALT 30 unit/L 0 - 65 12/03/2015 [facility] ELECTROLYTES AST 13 unit/L 0 - 37 12/03/2015 [facility] ELECTROLYTES Albumin Lvl 3.3 g/dL 3.5 - 5.0 12/03/2015 [facility] ELECTROLYTES Total Protein 7.0 g/dL 6.4 - 8.4 12/03/2015 [facility] ELECTROLYTES Calcium Lvl 8.0 mg/dL 8.5 - 10.5 12/03/2015 [facility] ELECTROLYTES BUN 10 mg/dL 7 - 22 12/03/2015 [facility] ELECTROLYTES Glucose Lvl 153 mg/dL 70 - 99 12/03/2015 [facility] ELECTROLYTES Creatinine Lvl 0.62 mg/dL 0.50 - 1.40 12/03/2015 [facility] ELECTROLYTES Potassium Lvl 3.6 meq/L 3.5 - 5.1 12/03/2015 [facility] ELECTROLYTES Sodium Lvl 139 meq/L 135 - 145 12/03/2015 [facility] HEMATOLOGY Lymphocytes # 3.1 K/CMM 1.0 - 5.5 12/03/2015 [facility] HEMATOLOGY Segs 67.0 % 45.0 - 75.0 12/03/2015 [facility] HEMATOLOGY Basophils 0.7 % 0.0 - 1.0 12/03/2015 [facility] HEMATOLOGY Segs-Bands # 8.4 K/CMM 1.5 - 8.1 12/03/2015 [facility] HEMATOLOGY Eosinophils 2.6 % 0.0 - 4.0 12/03/2015 [facility] HEMATOLOGY Monocytes 5.0 % 2.0 - 12.0 12/03/2015 [facility] HEMATOLOGY Lymphocytes 24.7 % 20.0 - 40.0 12/03/2015 [facility] HEMATOLOGY Eosinophils # 0.3 K/CMM 0.0 - 0.5 12/03/2015 [facility] HEMATOLOGY Basophils # 0.1 K/CMM 0.0 - 0.2 12/03/2015 [facility] HEMATOLOGY Monocytes # 0.6 K/CMM 0.0 - 0.8 12/03/2015 [facility] HEMATOLOGY RDW 14.9 % 11.5 - 14.5 12/03/2015 [facility] HEMATOLOGY Platelet 320 K/CMM 133 - 450 12/03/2015 [facility] HEMATOLOGY MPV 8.8 fL 7.4 - 10.4 12/03/2015 [facility] HEMATOLOGY WBC 12.5 K/CMM 3.7 - 10.4 12/03/2015 [facility] HEMATOLOGY RBC 4.79 M/CMM 4.20 - 5.40 12/03/2015 [facility] HEMATOLOGY MCH 25.4 pg 27.0 - 31.0 12/03/2015 [facility] HEMATOLOGY MCHC 31.7 g/dL 32.0 - 36.0 12/03/2015 [facility] HEMATOLOGY MCV 80.2 fL 80.0 - 98.0 12/03/2015 [facility] HEMATOLOGY Hgb 12.1 g/dL 12.0 - 16.0 12/03/2015 [facility] HEMATOLOGY Hct 38.4 % 36.0 - 48.0 12/03/2015 [facility] CHEM PANEL Lipase Lvl 163 unit/L 73 - 393 12/02/2015 [facility] HEMATOLOGY Eosinophils # 0.2 K/CMM 0.0 - 0.5 12/02/2015 [facility] HEMATOLOGY Basophils # 0.1 K/CMM 0.0 - 0.2 12/02/2015 [facility] URINE AND STOOL UA Color Ltyellow 12/02/2015 [facility] URINE AND STOOL UA Urobilinogen <=1.0 mg/dL 0.1 - 1.0 12/02/2015 [facility] URINE AND STOOL UA Sq Epi Many /LPF Few /LPF 12/02/2015 [facility] URINE AND STOOL UA WBC 2 /HPF 0 - 5 12/02/2015 [facility] URINE AND STOOL UA Leuk Est Trace *ABN* (12/02/15 3:35 PM) Negative 12/02/2015 [facility] URINE AND STOOL UA Blood Moderate *ABN* (12/02/15 3:35 PM) Negative 12/02/2015 [facility] URINE AND STOOL UA Nitrite Negative (12/02/15 3:35 PM) Negative 12/02/2015 [facility] URINE AND STOOL UA RBC 3 /HPF 0 - 2 12/02/2015 [facility] URINE AND STOOL UA Mucus Few /LPF None Seen /LPF 12/02/2015 [facility] URINE AND STOOL UA Turbidity Slight *ABN* (12/02/15 3:35 PM) Clear 12/02/2015 [facility] URINE AND STOOL UA Ketones Negative mg/dL Negative mg/dL 12/02/2015 [facility] URINE AND STOOL UA Bili Negative *NA* (12/02/15 3:35 PM) Negative 12/02/2015 [facility] URINE AND STOOL UA pH 5.0 5.0 - 8.0 12/02/2015 [facility] URINE AND STOOL UA Spec Grav 1.020 <=1.030 12/02/2015 [facility] URINE AND STOOL UA Glucose Negative mg/dL Negative mg/dL 12/02/2015 [facility] URINE AND STOOL UA Protein Negative mg/dL Negative mg/dL 12/02/2015 [facility] URINE CHEM U Preg Negative (12/02/15 3:35 PM) Negative 12/02/2015 [facility] Abdomen RUQ US Abdomen RUQ US Patient Name: ROXANA HUERTA : 1985; Age: 30 years Female MR: [id number] Study: Abdomen RUQ US 12/02/2015 3:26 PM CDT Clinical Indication: Abdominal pain, acute. COMPARISON: Cat scan June 11, 2015. Ultrasound April 21, 2015. TECHNIQUE: Grayscale and limited color sonographic evaluation of the right upper quadrant of the abdomen and gallbladder region was performed with standard technique. FINDINGS: LIVER: The visualized liver shows normal contour, size, and morphology. There is increased parenchymal echotexture. BILE DUCTS: The common bile duct measures 5.3 mm. The distal common bile duct is not well seen. GALLBLADDER: Gallbladder sludge is suspected. Slight thickening of the gallbladder wall. PANCREAS: The pancreas body body is normal. The head and tail are obscured by bowel gas. KIDNEY: The right kidney measures 10.5 x 4.8 x 4.5 cm. The renal cortical thickness measures 1.9 cm. There is normal renal contour and morphology, with normal parenchymal echotexture. There is no hydronephrosis. ASCITES: There is no right upper quadrant abdominal ascites. IMPRESSION: 1. Hepatocellular disease most likely due to fatty infiltration. 2. Gallbladder sludge with wall thickening may be seen with cholecystitis. 3. Slight common duct dilation, correlation for a distal obstructing process is recommended. SL: [id number] 12/02/2015 - - Read by: Paco Whiteside MD Dictated Date/time: 12/02/15 16:17 Electronically Signed by: Paco Whiteside MD 12/02/15 16:21 FINAL REPORT [facility] CHEM PANEL Lipase Lvl 213 unit/L 73 - 393 11/10/2015 [facility] CHEM PANEL Amylase Lvl 25 unit/L 25 - 115 11/10/2015 [facility] CHEM PANEL A/G Ratio 0.9 0.7 - 1.6 11/10/2015 [facility] CHEM PANEL Globulin 3.8 g/dL 2.0 - 4.0 11/10/2015 [facility] CHEM PANEL B/C Ratio 13 6 - 25 11/10/2015 [facility] CHEM PANEL AGAP 10.0 meq/L 10.0 - 20.0 11/10/2015 [facility] CHEM PANEL eGFR 60 mL/min/1.73m2 11/10/2015 Result Comment: The eGFR is calculated using the CKD-EPI formula. In most young, healthy individuals the eGFR will be >90 mL/min/1.73m2. The eGFR declines with age. An eGFR of 60-89 may be normal in some populations, particularly the elderly, for whom the CKD-EPI formula has not been extensively validated. Use of the eGFR is not recommended in the following populations: Individuals with unstable creatinine concentrations, including patients and those with serious co-morbid conditions. Patients with extremes in muscle mass or diet. The data above are obtained from the National Kidney Disease Education Program (NKDEP) which additionally recommends that when the eGFR is used in patients with extremes of body mass index for purposes of drug dosing, the eGFR should be multiplied by the estimated BMI. [facility] CHEM PANEL ALT 25 unit/L 0 - 65 11/10/2015 [facility] CHEM PANEL Bili Total 0.1 mg/dL 0.2 - 1.3 11/10/2015 [facility] CHEM PANEL Alk Phos 83 unit/L 39 - 136 11/10/2015 [facility] CHEM PANEL AST 10 unit/L 0 - 37 11/10/2015 [facility] CHEM PANEL Sodium Lvl 139 meq/L 135 - 145 11/10/2015 [facility] CHEM PANEL Glucose Lvl 202 mg/dL 70 - 99 11/10/2015 [facility] CHEM PANEL Creatinine Lvl 1.21 mg/dL 0.50 - 1.40 11/10/2015 [facility] CHEM PANEL BUN 16 mg/dL 7 - 22 11/10/2015 [facility] CHEM PANEL Potassium Lvl 4.0 meq/L 3.5 - 5.1 11/10/2015 [facility] CHEM PANEL CO2 28 meq/L 24 - 32 11/10/2015 [facility] CHEM PANEL Chloride Lvl 105 meq/L 95 - 109 11/10/2015 [facility] CHEM PANEL Total Protein 7.1 g/dL 6.4 - 8.4 11/10/2015 [facility] CHEM PANEL Calcium Lvl 8.2 mg/dL 8.5 - 10.5 11/10/2015 [facility] CHEM PANEL Albumin Lvl 3.3 g/dL 3.5 - 5.0 11/10/2015 [facility] RBC 4.60 M/CMM 4.20 - 5.40 11/10/2015 [facility] HEMATOLOGY WBC 12.6 K/CMM 3.7 - 10.4 11/10/2015 [facility] RDW 14.7 % 11.5 - 14.5 11/10/2015 [facility] MCH 25.3 pg 27.0 - 31.0 11/10/2015 [facility] MCV 79.7 fL 80.0 - 98.0 11/10/2015 [facility] Hct 36.7 % 36.0 - 48.0 11/10/2015 [facility] MCHC 31.8 g/dL 32.0 - 36.0 11/10/2015 [facility] Hgb 11.7 g/dL 12.0 - 16.0 11/10/2015 [facility] MPV 8.9 fL 7.4 - 10.4 11/10/2015 [facility] Platelet 304 K/CMM 133 - 450 11/10/2015 [facility] Basophils 0.6 % 0.0 - 1.0 11/10/2015 [facility] Segs-Bands # 7.9 K/CMM 1.5 - 8.1 11/10/2015 [facility] Monocytes 5.9 % 2.0 - 12.0 11/10/2015 [facility] Eosinophils 3.0 % 0.0 - 4.0 11/10/2015 [facility] Eosinophils # 0.4 K/CMM 0.0 - 0.5 11/10/2015 [facility] Monocytes # 0.7 K/CMM 0.0 - 0.8 11/10/2015 [facility] Lymphocytes # 3.4 K/CMM 1.0 - 5.5 11/10/2015 [facility] Basophils # 0.1 K/CMM 0.0 - 0.2 11/10/2015 [facility] Segs 63.2 % 45.0 - 75.0 11/10/2015 [facility] Lymphocytes 27.3 % 20.0 - 40.0 11/10/2015 [facility] URINE AND STOOL UA Urobilinogen <=1.0 mg/dL 0.1 - 1.0 11/10/2015 [facility] URINE AND STOOL UA Color Ltyellow 11/10/2015 [facility] URINE AND STOOL UA Turbidity Slight *ABN* (11/09/15 11:08 PM) Clear 11/10/2015 [facility] URINE AND STOOL UA Spec Grav 1.023 <=1.030 11/10/2015 [facility] URINE AND STOOL UA WBC 49 /HPF 0 - 5 11/10/2015 [facility] URINE AND STOOL UA Bacteria Occasional /HPF None Seen /HPF 11/10/2015 [facility] URINE AND STOOL UA RBC 6 /HPF 0 - 2 11/10/2015 [facility] URINE AND STOOL UA Sq Epi Moderate /LPF Few /LPF 11/10/2015 [facility] URINE AND STOOL UA Nitrite Negative (11/09/15 11:08 PM) Negative 11/10/2015 [facility] URINE AND STOOL UA Blood Negative (11/09/15 11:08 PM) Negative 11/10/2015 [facility] URINE AND STOOL UA Leuk Est Large *ABN* (11/09/15 11:08 PM) Negative 11/10/2015 [facility] URINE AND STOOL UA Protein 30 mg/dL Negative mg/dL 11/10/2015 [facility] URINE AND STOOL UA Glucose 50 mg/dL Negative mg/dL 11/10/2015 [facility] URINE AND STOOL UA Bili Negative *NA* (11/09/15 11:08 PM) Negative 11/10/2015 [facility] URINE AND STOOL UA Ketones Negative mg/dL Negative mg/dL 11/10/2015 [facility] URINE AND STOOL UA pH 8.0 5.0 - 8.0 11/10/2015 [facility] URINE CHEM U Preg Negative (11/09/15 11:08 PM) Negative 11/10/2015 [facility] Pelvis Transvaginal US Pelvis Transvaginal US Patient Name: ROXANA HUERTA : 1985; Age: 30 years y/o Female MR: [id number] Study: Pelvis Transvaginal US 11/09/2015 10:53 PM [employer] Ordering Physician: Samir Leon Clinical Indication: Abdominal pain, acute; Comparison: None TRANSVAGINAL PELVIC ULTRASOUND: Technique: Grayscale, color, and Doppler transabdominal and transvaginal imaging of the pelvis was performed with standard technique. UTERUS: Normal size measuring 8.9 x 5.2 x 5.6 cm. The endometrial stripe thickness measures 1.5 cm with a 5 mm cystic area within the fundal endometrium. Small nabothian cyst in the cervix. RIGHT OVARY AND ADNEXA: Normal size measuring 3.5 x 2.1 x 1.9 cm containing multiple small follicles along the cortical margins. LEFT OVARY AND ADNEXA: Normal size measuring 4.1 x 2.3 x 2.7 cm containing multiple small follicles and a 1.6 cm mildly complex cyst. URINARY BLADDER: Decompressed. FLUID: None. OTHER FINDINGS: None. IMPRESSION: 1. Normal size uterus with a mildly thickened endometrial stripe in a 5 mm cystic area within the fundal endometrium. Clinical correlation is required along with serial beta hCG levels and follow-up pelvic ultrasound if needed. 2. Small mildly complex left ovarian cyst at 1.6 cm. Short interval follow-up pelvic ultrasound is recommended in 2-3 menstrual cycles to document for stability or resolution. SL: [id number] 11/10/2015 - - Read by: Vineet Andrade MD Dictated Date/time: 11/10/15 02:38 Electronically Signed by: Vineet Andrade MD 11/10/15 02:41 FINAL REPORT [facility] HIV 4th GEN Negative (10/16/15 11:44 PM) Negative 10/17/2015 [facility]-Hep C Ab Negative *NA* (10/16/15 11:44 PM) Negative 10/17/2015 [facility] CHEM PANEL eGFR 117 mL/min/1.73m2 06/11/2015 Result Comment: The eGFR is calculated using the CKD-EPI formula. In most young, healthy individuals the eGFR will be >90 mL/min/1.73m2. The eGFR declines with age. An eGFR of 60-89 may be normal in some populations, particularly the elderly, for whom the CKD-EPI formula has not been extensively validated. Use of the eGFR is not recommended in the following populations: Individuals with unstable creatinine concentrations, including patients and those with serious co-morbid conditions. Patients with extremes in muscle mass or diet. The data above are obtained from the National Kidney Disease Education Program (NKDEP) which additionally recommends that when the eGFR is used in patients with extremes of body mass index for purposes of drug dosing, the eGFR should be multiplied by the estimated BMI. [facility] CHEM PANEL CO2 27 meq/L 24 - 32 06/11/2015 [facility] CHEM PANEL Calcium Lvl 8.5 mg/dL 8.5 - 10.5 06/11/2015 [facility] CHEM PANEL Albumin Lvl 3.2 g/dL 3.5 - 5.0 06/11/2015 [facility] CHEM PANEL Potassium Lvl 4.1 meq/L 3.5 - 5.1 06/11/2015 [facility] CHEM PANEL Chloride Lvl 102 meq/L 95 - 109 06/11/2015 [facility] CHEM PANEL Sodium Lvl 136 meq/L 135 - 145 06/11/2015 [facility] CHEM PANEL Creatinine Lvl 0.7 mg/dL 0.5 - 1.4 06/11/2015 [facility] CHEM PANEL Total Protein 7.5 g/dL 6.4 - 8.4 06/11/2015 [facility] CHEM PANEL Glucose Lvl 170 mg/dL 70 - 99 06/11/2015 [facility] CHEM PANEL BUN 15 mg/dL 7 - 22 06/11/2015 [facility] CHEM PANEL Bili Total 0.3 mg/dL 0.2 - 1.3 06/11/2015 [facility] CHEM PANEL AST 39 unit/L 0 - 37 06/11/2015 [facility] CHEM PANEL ALT 33 unit/L 0 - 65 06/11/2015 [facility] CHEM PANEL Alk Phos 86 unit/L 39 - 136 06/11/2015 [facility] CHEM PANEL AGAP 11.1 meq/L 10.0 - 20.0 06/11/2015 [facility] CHEM PANEL A/G Ratio 0.7 0.7 - 1.6 06/11/2015 [facility] CHEM PANEL B/C Ratio 21 6 - 25 06/11/2015 [facility] CHEM PANEL Globulin 4.3 g/dL 2.0 - 4.0 06/11/2015 [facility] HEMATOLOGY Eosinophils # 0.3 K/CMM 0.0 - 0.5 06/11/2015 [facility] HEMATOLOGY Basophils # 0.1 K/CMM 0.0 - 0.2 06/11/2015 [facility] HEMATOLOGY Lymphocytes # 3.5 K/CMM 1.0 - 5.5 06/11/2015 [facility] HEMATOLOGY Segs 61.7 % 45.0 - 75.0 06/11/2015 [facility] HEMATOLOGY Lymphocytes 28.9 % 20.0 - 40.0 06/11/2015 [facility] HEMATOLOGY Monocytes # 0.7 K/CMM 0.0 - 0.8 06/11/2015 [facility] HEMATOLOGY Segs-Bands # 7.6 K/CMM 1.5 - 8.1 06/11/2015 [facility] HEMATOLOGY Basophils 1.0 % 0.0 - 1.0 06/11/2015 [facility] HEMATOLOGY Eosinophils 2.6 % 0.0 - 4.0 06/11/2015 [facility] HEMATOLOGY Monocytes 5.8 % 2.0 - 12.0 06/11/2015 [facility] HEMATOLOGY MCH 26.5 pg 27.0 - 31.0 06/11/2015 [facility] MCHC 32.3 g/dL 32.0 - 36.0 06/11/2015 [facility] HEMATOLOGY RDW 13.8 % 11.5 - 14.5 06/11/2015 [facility] HEMATOLOGY WBC 12.3 K/CMM 3.7 - 10.4 06/11/2015 [facility] HEMATOLOGY MCV 82.2 fL 80.0 - 98.0 06/11/2015 [facility] RBC 4.50 M/CMM 4.20 - 5.40 06/11/2015 [facility] Hgb 11.9 g/dL 12.0 - 16.0 06/11/2015 [facility] Hct 37.0 % 36.0 - 48.0 06/11/2015 [facility] MPV 9.8 fL 7.4 - 10.4 06/11/2015 [facility] Platelet 243 K/CMM 133 - 450 06/11/2015 [facility] URINE AND STOOL UA Color Ltyellow 06/11/2015 [facility] URINE AND STOOL UA Urobilinogen <=1.0 mg/dL 0.1 - 1.0 06/11/2015 [facility] URINE AND STOOL UA Mucus Few /LPF None Seen /LPF 06/11/2015 [facility] URINE AND STOOL UA Turbidity Slight *ABN* (06/10/15 10:39 PM) Clear 06/11/2015 [facility] URINE AND STOOL UA Protein Negative mg/dL Negative mg/dL 06/11/2015 [facility] URINE AND STOOL UA Ketones Negative mg/dL Negative mg/dL 06/11/2015 [facility] URINE AND STOOL UA Glucose Negative mg/dL Negative mg/dL 06/11/2015 [facility] URINE AND STOOL UA Bili Negative *NA* (06/10/15 10:39 PM) Negative 06/11/2015 [facility] URINE AND STOOL UA Blood Small *ABN* (06/10/15 10:39 PM) Negative 06/11/2015 [facility] URINE AND STOOL UA Leuk Est Small *ABN* (06/10/15 10:39 PM) Negative 06/11/2015 [facility] URINE AND STOOL UA Nitrite Negative (06/10/15 10:39 PM) Negative 06/11/2015 [facility] URINE AND STOOL UA RBC 4 /HPF 0 - 2 06/11/2015 [facility] URINE AND STOOL UA WBC 4 /HPF 0 - 5 06/11/2015 [facility] URINE AND STOOL UA Bacteria Occasional /HPF None Seen /HPF 06/11/2015 [facility] URINE AND STOOL UA Sq Epi Many /LPF Few /LPF 06/11/2015 [facility] URINE AND STOOL UA pH 6.0 5.0 - 8.0 06/11/2015 [facility] URINE AND STOOL UA Spec Grav 1.023 <=1.030 06/11/2015 [facility] URINE CHEM U Preg Negative (06/10/15 10:39 PM) Negative 06/11/2015 [facility] Abdomen/Pelvis w IV contrast CT Abdomen/Pelvis w IV contrast CT I. CT SCAN of the ABDOMEN with contrast II. CT SCAN of the PELVIS with contrast History: Right lower quadrant abdominal pain, concern for appendicitis. A prior study of 03/09/2015 and a right upper quadrant ultrasound of 04/21/[address] SCAN of the ABDOMEN with contrast Technique: Helical CT images were obtained from the domes the diaphragms to the iliac crests following the administration of oral and nonionic iodinated intravenous contrast. II. CT SCAN of the PELVIS with contrast Technique: Helical CT images were obtained from the iliac crests to the pubic symphysis following the administration of oral and nonionic iodinated intravenous contrast. Sagittal and coronal reconstructions were provided. FINDINGS: There is no free intraperitoneal gas, abscess, focal inflammation, or other evidence of an acute intra-abdominal process. There are marked diffuse fatty change involving the liver, similar to prior study. There is mild hepatomegaly. The liver is otherwise unremarkable. No focal lesions are seen. The spleen, pancreas, and adrenals are normal in appearance. The kidneys show good, symmetrical, excretion without hydronephrosis. The gastrointestinal structures are unremarkable. There is no evidence of obstruction or ileus. A normal appendix was visualized. There is no evidence of appendicitis. No abdominal masses, adenopathy, ascites, or fluid collections are seen. There is a small umbilical hernia. There is no herniation of bowel. The lung bases are clear. There are no pleural effusions. The heart is normal in size. The osseous structures are unremarkable. CONCLUSION: 1. No evidence of a focal or acute intra-abdominal process. 2. Marked diffuse fatty changes involving the liver and mild hepatomegaly. 3. Small umbilical hernia. SL: 12 Maciel Jeffrey M.D. 06/11/2015 - - Read by: Maciel Jeffrey MD Dictated Date/time: 06/11/15 03:45 Electronically Signed by: Maciel Jeffrey MD 06/11/15 03:49 FINAL REPORT [facility] CARDIAC ENZYMES Total CK 66 unit/L 12 - 191 04/21/2015 [facility] CARDIAC ENZYMES BNP 36 pg/mL <=100 pg/mL 04/21/2015 [facility] CARDIAC ENZYMES Troponin-I null 0.00 - 0.40 04/21/2015 [facility] CHEM PANEL Lipase Lvl 152 unit/L 73 - 393 04/21/2015 [facility] CHEM PANEL Amylase Lvl 19 unit/L 25 - 115 04/21/2015 [facility] CHEM PANEL eGFR 99 mL/min/1.73m2 04/21/2015 Result Comment: The eGFR is calculated using the CKD-EPI formula. In most young, healthy individuals the eGFR will be >90 mL/min/1.73m2. The eGFR declines with age. An eGFR of 60-89 may be normal in some populations, particularly the elderly, for whom the CKD-EPI formula has not been extensively validated. Use of the eGFR is not recommended in the following populations: Individuals with unstable creatinine concentrations, including patients and those with serious co-morbid conditions. Patients with extremes in muscle mass or diet. The data above are obtained from the National Kidney Disease Education Program (NKDEP) which additionally recommends that when the eGFR is used in patients with extremes of body mass index for purposes of drug dosing, the eGFR should be multiplied by the estimated BMI. [facility] CHEM PANEL Calcium Lvl 9.0 mg/dL 8.5 - 10.5 04/21/2015 [facility] CHEM PANEL AST 35 unit/L 0 - 37 04/21/2015 [facility] CHEM PANEL CO2 22 meq/L 24 - 32 04/21/2015 [facility] CHEM PANEL BUN 11 mg/dL 7 - 22 04/21/2015 [facility] CHEM PANEL Total Protein 7.8 g/dL 6.4 - 8.4 04/21/2015 [facility] CHEM PANEL Creatinine Lvl 0.8 mg/dL 0.5 - 1.4 04/21/2015 [facility] CHEM PANEL Alk Phos 82 unit/L 39 - 136 04/21/2015 [facility] CHEM PANEL ALT 40 unit/L 0 - 65 04/21/2015 [facility] CHEM PANEL Albumin Lvl 3.5 g/dL 3.5 - 5.0 04/21/2015 [facility] CHEM PANEL Bili Total 0.5 mg/dL 0.2 - 1.3 04/21/2015 [facility] CHEM PANEL Glucose Lvl 131 mg/dL 70 - 99 04/21/2015 [facility] CHEM PANEL Chloride Lvl 106 meq/L 95 - 109 04/21/2015 [facility] CHEM PANEL Potassium Lvl 3.6 meq/L 3.5 - 5.1 04/21/2015 [facility] CHEM PANEL Sodium Lvl 137 meq/L 135 - 145 04/21/2015 [facility] CHEM PANEL B/C Ratio 14 6 - 25 04/21/2015 [facility] CHEM PANEL AGAP 12.6 meq/L 10.0 - 20.0 04/21/2015 [facility] CHEM PANEL A/G Ratio 0.8 0.7 - 1.6 04/21/2015 [facility] CHEM PANEL Globulin 4.3 g/dL 2.0 - 4.0 04/21/2015 [facility] HEMATOLOGY INR 1.03 0.85 - 1.17 04/21/2015 [facility] HEMATOLOGY PTT 30.7 s 22.9 - 35.8 04/21/2015 [facility] HEMATOLOGY PT 13.5 s 12.0 - 14.7 04/21/2015 [facility] HEMATOLOGY Hct 38.9 % 36.0 - 48.0 04/21/2015 [facility] HEMATOLOGY Hgb 13.0 g/dL 12.0 - 16.0 04/21/2015 [facility] HEMATOLOGY RBC 4.71 M/CMM 4.20 - 5.40 04/21/2015 [facility] HEMATOLOGY WBC 9.4 K/CMM 3.7 - 10.4 04/21/2015 [facility] HEMATOLOGY MCV 82.7 fL 80.0 - 98.0 04/21/2015 [facility] HEMATOLOGY Platelet 294 K/CMM 133 - 450 04/21/2015 [facility] HEMATOLOGY RDW 14.4 % 11.5 - 14.5 04/21/2015 [facility] HEMATOLOGY MCHC 33.5 g/dL 32.0 - 36.0 04/21/2015 [facility] HEMATOLOGY MCH 27.7 pg 27.0 - 31.0 04/21/2015 [facility] HEMATOLOGY MPV 9.1 fL 7.4 - 10.4 04/21/2015 [facility] HEMATOLOGY Segs-Bands # 6.1 K/CMM 1.5 - 8.1 04/21/2015 [facility] HEMATOLOGY Basophils 1.0 % 0.0 - 1.0 04/21/2015 [facility] HEMATOLOGY Eosinophils # 0.2 K/CMM 0.0 - 0.5 04/21/2015 [facility] HEMATOLOGY Monocytes # 0.5 K/CMM 0.0 - 0.8 04/21/2015 [facility] HEMATOLOGY Lymphocytes # 2.5 K/CMM 1.0 - 5.5 04/21/2015 [facility] HEMATOLOGY Eosinophils 1.8 % 0.0 - 4.0 04/21/2015 [facility] HEMATOLOGY Monocytes 5.0 % 2.0 - 12.0 04/21/2015 [facility] HEMATOLOGY Basophils # 0.1 K/CMM 0.0 - 0.2 04/21/2015 [facility] HEMATOLOGY Lymphocytes 27.0 % 20.0 - 40.0 04/21/2015 [facility] HEMATOLOGY Segs 65.2 % 45.0 - 75.0 04/21/2015 [facility] URINE AND STOOL UA Ketones Negative mg/dL Negative mg/dL 04/21/2015 [facility] URINE AND STOOL UA Nitrite Negative (04/21/15 2:20 PM) Negative 04/21/2015 [facility] URINE AND STOOL UA Glucose Negative mg/dL Negative mg/dL 04/21/2015 [facility] URINE AND STOOL UA Blood Large *ABN* (04/21/15 2:20 PM) Negative 04/21/2015 [facility] URINE AND STOOL UA Bili Negative *NA* (04/21/15 2:20 PM) Negative 04/21/2015 [facility] URINE AND STOOL UA Protein Negative mg/dL Negative mg/dL 04/21/2015 [facility] URINE AND STOOL UA Spec Grav 1.015 <=1.030 04/21/2015 [facility] URINE AND STOOL UA pH 5.0 5.0 - 8.0 04/21/2015 [facility] URINE AND STOOL UA Turbidity Slight *ABN* (04/21/15 2:20 PM) Clear 04/21/2015 [facility] URINE AND STOOL UA Urobilinogen <=1.0 mg/dL 0.1 - 1.0 04/21/2015 [facility] URINE AND STOOL UA Color Ltyellow 04/21/2015 [facility] URINE AND STOOL UA Bacteria Occasional /HPF None Seen /HPF 04/21/2015 [facility] URINE AND STOOL UA RBC 76 /HPF 0 - 2 04/21/2015 [facility] URINE AND STOOL UA WBC 11 /HPF 0 - 5 04/21/2015 [facility] URINE AND STOOL UA Sq Epi Few /LPF Few /LPF 04/21/2015 [facility] URINE AND STOOL UA Leuk Est Large *ABN* (04/21/15 2:20 PM) Negative 04/21/2015 [facility] URINE CHEM U Preg Negative (04/21/15 2:20 PM) Negative 04/21/2015 [facility] Abdomen RUQ US Abdomen RUQ US Right upper quadrant ultrasound. Clinical History: Abdominal pain, acute Comparison: CT of the abdomen and pelvis from 03/09/2015. Findings: Transverse and longitudinal imaging of the right upper quadrant. The liver is echogenic measuring 16 cm. The gallbladder is normal in appearance without gallstones or sludge. No gallbladder wall thickening or pericholecystic fluid. There is no biliary ductal dilatation. The common bile duct measures 2.3 mm. The sonographic Cid's sign is negative. No free fluid in Johansen's pouc h. Right kidney is normal in appearance without mass, hydronephrosis, or stone measuring 1.6 x 4.6 x 5.6 cm. The aorta and IVC are normal in the visualized portions. The pancreas is normal in the visualized portions. The main portal vein is patent, with hepatopedal flow. Impression: 1. Hepatic steatosis SL: 16 04/21/2015 - - Read by: Miguel Angel Scanlon MD Dictated Date/time: 04/21/15 15:48 Electronically Signed by: Miguel Angel Scanlon MD 04/21/15 15:50 FINAL REPORT [facility] Abdomen acute series w chest 1 view DX Abdomen acute series w chest 1 view DX EXAM: ABDOMINAL SERIES CLINICAL: Abdominal pain, acute COMPARISON: Chest x-ray from 06/10/2014 FINDINGS: Multiple films submitted for interpretation. CHEST: The heart and pulmonary vasculature are within normal limits. No focal consolidation or pleural fluid collection is demonstrated. The bony thorax is unremarkable. ABDOMEN: There is no evidence of pneumoperitoneum. The bowel gas pattern is non-obstructed. No suspicious calcifications are present. No acute bone abnormality is seen. IMPRESSION: 1. Non-obstructed bowel gas pattern. 2. No acute cardiopulmonary disease. SL: 16 04/21/2015 - - Read by: Miguel Angel Scanlon MD Dictated Date/time: 04/21/15 14:59 Electronically Signed by: Miguel Angel Scanlon MD 04/21/15 14:59 FINAL REPORT [facility] MOLECULAR DIAGNOSTIC N gonorrhea by Amp Det (APTIMA) Negative *NA* (04/19/15 12:25 AM) Negative 04/19/2015 [facility] MOLECULAR DIAGNOSTIC Source APTIMA Endocervix *NA* (04/19/15 12:25 AM) 04/19/2015 [facility] MOLECULAR DIAGNOSTIC C trachomatis by Amp Det (APTIMA) Negative *NA* (04/19/15 12:25 AM) Negative 04/19/2015 [facility] MOLECULAR DIAGNOSTIC Source APTIMA Endocervix *NA* (04/19/15 12:25 AM) 04/19/2015 [facility] CHEM PANEL eGFR 99 mL/min/1.73m2 04/19/2015 Result Comment: The eGFR is calculated using the CKD-EPI formula. In most young, healthy individuals the eGFR will be >90 mL/min/1.73m2. The eGFR declines with age. An eGFR of 60-89 may be normal in some populations, particularly the elderly, for whom the CKD-EPI formula has not been extensively validated. Use of the eGFR is not recommended in the following populations: Individuals with unstable creatinine concentrations, including patients and those with serious co-morbid conditions. Patients with extremes in muscle mass or diet. The data above are obtained from the National Kidney Disease Education Program (NKDEP) which additionally recommends that when the eGFR is used in patients with extremes of body mass index for purposes of drug dosing, the eGFR should be multiplied by the estimated BMI. [facility] CHEM PANEL Potassium Lvl 3.5 meq/L 3.5 - 5.1 04/19/2015 [facility] CHEM PANEL Sodium Lvl 137 meq/L 135 - 145 04/19/2015 [facility] CHEM PANEL Creatinine Lvl 0.8 mg/dL 0.5 - 1.4 04/19/2015 [facility] CHEM PANEL Calcium Lvl 8.0 mg/dL 8.5 - 10.5 04/19/2015 [facility] CHEM PANEL Chloride Lvl 105 meq/L 95 - 109 04/19/2015 [facility] CHEM PANEL ALT 33 unit/L 0 - 65 04/19/2015 [facility] CHEM PANEL BUN 18 mg/dL 7 - 22 04/19/2015 [facility] CHEM PANEL CO2 24 meq/L 24 - 32 04/19/2015 [facility] CHEM PANEL AST 24 unit/L 0 - 37 04/19/2015 [facility] CHEM PANEL Bili Total 0.3 mg/dL 0.2 - 1.3 04/19/2015 [facility] CHEM PANEL Alk Phos 87 unit/L 39 - 136 04/19/2015 [facility] CHEM PANEL Total Protein 7.2 g/dL 6.4 - 8.4 04/19/2015 [facility] CHEM PANEL Albumin Lvl 3.3 g/dL 3.5 - 5.0 04/19/2015 [facility] CHEM PANEL Glucose Lvl 163 mg/dL 70 - 99 04/19/2015 [facility] CHEM PANEL Globulin 3.9 g/dL 2.0 - 4.0 04/19/2015 [facility] CHEM PANEL A/G Ratio 0.8 0.7 - 1.6 04/19/2015 [facility] CHEM PANEL AGAP 11.5 meq/L 10.0 - 20.0 04/19/2015 [facility] CHEM PANEL B/C Ratio 22 6 - 25 04/19/2015 [facility] CHEM PANEL Amylase Lvl 21 unit/L 25 - 115 04/19/2015 [facility] CHEM PANEL Lipase Lvl 201 unit/L 73 - 393 04/19/2015 [facility] HEMATOLOGY Eosinophils # 0.2 K/CMM 0.0 - 0.5 04/19/2015 [facility] HEMATOLOGY Segs-Bands # 7.0 K/CMM 1.5 - 8.1 04/19/2015 [facility] HEMATOLOGY Eosinophils 1.9 % 0.0 - 4.0 04/19/2015 [facility] HEMATOLOGY Basophils 0.5 % 0.0 - 1.0 04/19/2015 [facility] HEMATOLOGY Basophils # 0.1 K/CMM 0.0 - 0.2 04/19/2015 [facility] HEMATOLOGY Monocytes 5.7 % 2.0 - 12.0 04/19/2015 [facility] HEMATOLOGY Lymphocytes # 3.4 K/CMM 1.0 - 5.5 04/19/2015 [facility] HEMATOLOGY Monocytes # 0.6 K/CMM 0.0 - 0.8 04/19/2015 [facility] HEMATOLOGY Segs 61.8 % 45.0 - 75.0 04/19/2015 [facility] HEMATOLOGY Lymphocytes 30.1 % 20.0 - 40.0 04/19/2015 [facility] HEMATOLOGY WBC 11.4 K/CMM 3.7 - 10.4 04/19/2015 [facility] HEMATOLOGY RBC 4.40 M/CMM 4.20 - 5.40 04/19/2015 [facility] HEMATOLOGY RDW 13.9 % 11.5 - 14.5 04/19/2015 [facility] HEMATOLOGY Platelet 290 K/CMM 133 - 450 04/19/2015 [facility] HEMATOLOGY MPV 9.0 fL 7.4 - 10.4 04/19/2015 [facility] HEMATOLOGY Hgb 12.1 g/dL 12.0 - 16.0 04/19/2015 [facility] HEMATOLOGY Hct 36.7 % 36.0 - 48.0 04/19/2015 [facility] HEMATOLOGY MCV 83.4 fL 80.0 - 98.0 04/19/2015 [facility] MCH 27.5 pg 27.0 - 31.0 04/19/2015 [facility] HEMATOLOGY MCHC 33.0 g/dL 32.0 - 36.0 04/19/2015 [facility] URINE AND STOOL UA Turbidity Marked *ABN* (04/18/15 11:16 PM) Clear 04/19/2015 [facility] URINE AND STOOL UA Color Yellow *NA* (04/18/15 11:16 PM) Yellow 04/19/2015 [facility] URINE AND STOOL UA Bili Negative *NA* (04/18/15 11:16 PM) Negative 04/19/2015 [facility] URINE AND STOOL UA Ketones Negative mg/dL Negative mg/dL 04/19/2015 [facility] URINE AND STOOL UA Glucose Negative mg/dL Negative mg/dL 04/19/2015 [facility] URINE AND STOOL UA Protein Negative mg/dL Negative mg/dL 04/19/2015 [facility] URINE AND STOOL UA pH 6.0 5.0 - 8.0 04/19/2015 [facility] URINE AND STOOL UA Spec Grav 1.024 <=1.030 04/19/2015 [facility] URINE AND STOOL UA Sq Epi Many /LPF Few /LPF 04/19/2015 [facility] URINE AND STOOL UA Gonzales Yeast Occasional /HPF None Seen /HPF 04/19/2015 [facility] URINE AND STOOL UA Bacteria Occasional /HPF None Seen /HPF 04/19/2015 [facility] URINE AND STOOL UA RBC 23 /HPF 0 - 2 04/19/2015 [facility] URINE AND STOOL UA Hyal Cast 1 /LPF 0 - 2 04/19/2015 [facility] URINE AND STOOL UA WBC 40 /HPF 0 - 5 04/19/2015 [facility] URINE AND STOOL UA Leuk Est Large *ABN* (04/18/15 11:16 PM) Negative 04/19/2015 [facility] URINE AND STOOL UA Urobilinogen 2.0 mg/dL 0.1 - 1.0 04/19/2015 [facility] URINE AND STOOL UA Nitrite Negative (04/18/15 11:16 PM) Negative 04/19/2015 [facility] URINE AND STOOL UA Blood Small *ABN* (04/18/15 11:16 PM) Negative 04/19/2015 [facility] URINE CHEM U Preg Negative (04/18/15 11:16 PM) Negative 04/19/2015 [facility] HEMATOLOGY Basophils 1.1 % 0.0 - 1.0 03/10/2015 [facility] HEMATOLOGY Monocytes 5.4 % 2.0 - 12.0 03/10/2015 [facility] HEMATOLOGY Lymphocytes 26.4 % 20.0 - 40.0 03/10/2015 [facility] HEMATOLOGY Segs 65.0 % 45.0 - 75.0 03/10/2015 [facility] HEMATOLOGY Eosinophils 2.1 % 0.0 - 4.0 03/10/2015 [facility] Lymphocytes # 3.2 K/CMM 1.0 - 5.5 03/10/2015 [facility] Segs-Bands # 8.0 K/CMM 1.5 - 8.1 03/10/2015 [facility] Eosinophils # 0.3 K/CMM 0.0 - 0.5 03/10/2015 [facility] Monocytes # 0.7 K/CMM 0.0 - 0.8 03/10/2015 [facility] Basophils # 0.1 K/CMM 0.0 - 0.2 03/10/2015 [facility] MCV 83.5 fL 80.0 - 98.0 03/10/2015 [facility] Hct 35.6 % 36.0 - 48.0 03/10/2015 [facility] MCH 27.5 pg 27.0 - 31.0 03/10/2015 [facility] RDW 14.7 % 11.5 - 14.5 03/10/2015 [facility] MCHC 32.9 g/dL 32.0 - 36.0 03/10/2015 [facility] HEMATOLOGY WBC 12.2 K/CMM 3.7 - 10.4 03/10/2015 [facility] HEMATOLOGY Hgb 11.7 g/dL 12.0 - 16.0 03/10/2015 [facility] HEMATOLOGY RBC 4.26 M/CMM 4.20 - 5.40 03/10/2015 [facility] HEMATOLOGY Platelet 309 K/CMM 133 - 450 03/10/2015 [facility] HEMATOLOGY MPV 8.8 fL 7.4 - 10.4 03/10/2015 [facility] MOLECULAR DIAGNOSTIC Source APTIMA Urine *NA* (03/09/15 5:30 PM) 03/09/2015 [facility] MOLECULAR DIAGNOSTIC N gonorrhea by Amp Det (APTIMA) Negative 3 *NA* (03/09/15 5:30 PM) Negative 03/09/2015 3Interpretive Data: The APTIMA assay is a target amplification nucleic acid probe test utilizing target capture for the qualitative detection and differentiation of ribosomal RNA from Neisseria gonorrhoeae to aid in the diagnosis of disease from symptomatic and asymptomatic individuals using the [employer] System. This assay utilizes FDA cleared IVD reagents. Performance characteristics have been verified by the [facility] within [facility]. The [facility] is authorized under the Clinical Laboratory Improvement Amendments of 1988 (CLIA-88) to perform high complexity testing. [facility] URINE AND STOOL UA Urobilinogen <=1.0 mg/dL 0.1 - 1.0 03/09/2015 [facility] URINE AND STOOL UA WBC 3 /HPF 0 - 5 03/09/2015 [facility] URINE AND STOOL UA RBC 11 /HPF 0 - 2 03/09/2015 [facility] URINE AND STOOL UA Sq Epi Moderate /LPF Few /LPF 03/09/2015 [facility] URINE AND STOOL UA pH 6.0 5.0 - 8.0 03/09/2015 [facility] URINE AND STOOL UA Protein Negative mg/dL Negative mg/dL 03/09/2015 [facility] URINE AND STOOL UA Glucose 150 mg/dL Negative mg/dL 03/09/2015 [facility] URINE AND STOOL UA Leuk Est Moderate *ABN* (03/09/15 5:30 PM) Negative 03/09/2015 [facility] URINE AND STOOL UA Nitrite Negative (03/09/15 5:30 PM) Negative 03/09/2015 [facility] URINE AND STOOL UA Color Yellow *NA* (6/30/15 5:30 PM) Yellow 03/09/2015 [facility] URINE AND STOOL UA Turbidity Clear (03/09/15 5:30 PM) Clear 03/09/2015 [facility] URINE AND STOOL UA Spec Grav 1.025 <=1.030 03/09/2015 [facility] URINE AND STOOL UA Mucus Few /LPF None Seen /LPF 03/09/2015 [facility] URINE AND STOOL UA Bacteria Occasional /HPF None Seen /HPF 03/09/2015 [facility] URINE AND STOOL UA Blood Small *ABN* (03/09/15 5:30 PM) Negative 03/09/2015 [facility] URINE AND STOOL UA Bili Negative *NA* (03/09/15 5:30 PM) Negative 03/09/2015 [facility] URINE AND STOOL UA Ketones Trace mg/dL Negative mg/dL 03/09/2015 [facility] URINE CHEM U Preg Negative (03/09/15 5:30 PM) Negative 03/09/2015 [facility] CHEM PANEL eGFR 99 mL/min/1.73m2 03/09/2015 1Result Comment: The eGFR is calculated using the CKD-EPI formula. In most young, healthy individuals the eGFR will be >90 mL/min/1.73m2. The eGFR declines with age. An eGFR of 60-89 may be normal in some populations, particularly the elderly, for whom the CKD-EPI formula has not been extensively validated. Use of the eGFR is not recommended in the following populations: Individuals with unstable creatinine concentrations, including patients and those with serious co-morbid conditions. Patients with extremes in muscle mass or diet. The data above are obtained from the National Kidney Disease Education Program (NKDEP) which additionally recommends that when the eGFR is used in patients with extremes of body mass index for purposes of drug dosing, the eGFR should be multiplied by the estimated BMI. [facility] CHEM PANEL AGAP 9.0 meq/L 10.0 - 20.0 03/09/2015 [facility] CHEM PANEL Calcium Lvl 8.4 mg/dL 8.5 - 10.5 03/09/2015 [facility] CHEM PANEL CO2 27 meq/L 24 - 32 03/09/2015 [facility] CHEM PANEL Chloride Lvl 105 meq/L 95 - 109 03/09/2015 [facility] CHEM PANEL BUN 14 mg/dL 7 - 22 03/09/2015 [facility] CHEM PANEL Creatinine Lvl 0.8 mg/dL 0.5 - 1.4 03/09/2015 [facility] CHEM PANEL Potassium Lvl 4.0 meq/L 3.5 - 5.1 03/09/2015 [facility] CHEM PANEL Sodium Lvl 137 meq/L 135 - 145 03/09/2015 [facility] CHEM PANEL Glucose Lvl 152 mg/dL 70 - 99 03/09/2015 2Interpretive Data: Adult reference range values reflect the clinical guidelines of the [place] [employer]. [facility] CHEM PANEL Magnesium Lvl 2.0 mg/dL 1.8 - 2.4 03/09/2015 [facility] Abdomen/Pelvis w IV contrast CT Abdomen/Pelvis w IV contrast CT I. CT SCAN of the ABDOMEN with contrast II. CT SCAN of the PELVIS with contrast History: Abdominal pain. Comparison is made to 10/30/2014. A study of 07/08/2012 was also reviewed. It is noted the patient has had 6 CT examinations of the abdomen or pelvis dating back to 06/29/2009. I. CT SCAN of the ABDOMEN with contrast Technique: Helical CT images were obtained from the domes the diaphragms to the iliac crests following the administration of oral and nonionic iodinated intravenous contrast. II. CT SCAN of the PELVIS with contrast Technique: Helical CT images were obtained from the iliac crests to the pubic symphysis following the administration of oral and nonionic iodinated intravenous contrast. Sagittal and coronal reconstructions were provided. FINDINGS: There is no free intraperitoneal gas, abscess, focal inflammation, or other evidence of an acute intra-abdominal process. There are severe fatty changes involving the liver. The liver is otherwise unremarkable. No focal lesions are seen. The liver, spleen, pancreas, and adrenals are normal in appearance. The kidneys show good, symmetrical, excretion without hydronephrosis. The gastrointestinal structures are unremarkable. A normal appendix was visualized. There is no evidence of appendicitis. There is no evidence of bowel obstruction or ileus. No abdominal masses, adenopathy, ascites, or fluid collections are seen. There is a very small umbilical hernia. There is no herniation of bowel. The lung bases are clear. There are no pleural effusions. The heart is normal in size. The osseous structures are unremarkable. CONCLUSION: 1. No evidence of an acute or focal intra-abdominal process. 2. Severe diffuse fatty change involving the liver. 3. Very small umbilical hernia. There is no herniation of bowel. SL: 13 Maciel S. [place], M.D. 03/09/2015 - - Read by: Maciel Jeffrey MD Dictated Date/time: 03/09/15 21:15 Electronically Signed by: Maciel Jeffrey MD 03/09/15 21:19 FINAL REPORT [facility] Pelvis Transvaginal US Pelvis Transvaginal US NAME: ROXANA HUERTA : 1985 SEX: F Ordering Physician: Artemio Gonzales Endovaginal ultrasound of the pelvis : Mar 09, 2015 06:20:00 PM. CLINICAL INDICATION: Abdominal pain, acute. Negative test. Comparison Examination: CT pelvis dated 10/30/2014. FINDINGS: Endovaginal ultrasound: The uterus measures 9.0 x 5.0 x 6.0 cm. The uterus is sonographically unremarkable. Endometrial stripe measures 1.3 cm in full width thickness. Both ovaries sonographically normal with the right ovary measuring 3.7 x 2.8 x 2.0 cm and the left ovary measuring 3.0 x 1.7 x 2.5 cm. No free fluid identified in the pelvis. Tiny nabothian cysts. CONCLUSIONS: Unremarkable endovaginal ultrasound of the pelvis. SL: 14 03/09/2015 - - Read by: Darrin Palmer MD Dictated Date/time: 03/09/15 18:36 Electronically Signed by: Darrin Palmer MD 03/09/15 18:39 FINAL REPORT [facility] URINE AND STOOL UA Color Ltyellow 11/04/2014 [facility] URINE AND STOOL UA Urobilinogen <=1.0 mg/dL 0.1 - 1.0 11/04/2014 [facility] URINE AND STOOL UA Leuk Est Trace *ABN* (11/04/14 9:24 AM) Negative 11/04/2014 [facility] URINE AND STOOL UA WBC 4 /HPF 0 - 5 11/04/2014 [facility] URINE AND STOOL UA RBC 1 /HPF 0 - 2 11/04/2014 [facility] URINE AND STOOL UA Sq Epi Few /LPF Few /LPF 11/04/2014 [facility] URINE AND STOOL UA Ketones Negative mg/dL Negative mg/dL 11/04/2014 [facility] URINE AND STOOL UA Bili Negative *NA* (2/25/15 9:24 AM) Negative 11/04/2014 [facility] URINE AND STOOL UA Glucose Negative mg/dL Negative mg/dL 11/04/2014 [facility] URINE AND STOOL UA Blood Small *ABN* (11/04/14 9:24 AM) Negative 11/04/2014 [facility] URINE AND STOOL UA Nitrite Negative (11/04/14 9:24 AM) Negative 11/04/2014 [facility] URINE AND STOOL UA Turbidity Clear (11/04/14 9:24 AM) Clear 11/04/2014 [facility] URINE AND STOOL UA Protein Negative mg/dL Negative mg/dL 11/04/2014 [facility] URINE AND STOOL UA Spec Grav 1.014 <=1.030 11/04/2014 [facility] URINE AND STOOL UA pH 5.0 5.0 - 8.0 11/04/2014 [facility] URINE CHEM U Preg Negative (11/04/14 9:24 AM) Negative 11/04/2014 [facility] CHEM PANEL Lipase Lvl 163 unit/L 73 - 393 11/04/2014 [facility] CHEM PANEL eGFR 117 mL/min/1.73m2 11/04/2014 1Result Comment: The eGFR is calculated using the CKD-EPI formula. In most young, healthy individuals the eGFR will be >90 mL/min/1.73m2. The eGFR declines with age. An eGFR of 60-89 may be normal in some populations, particularly the elderly, for whom the CKD-EPI formula has not been extensively validated. Use of the eGFR is not recommended in the following populations: Individuals with unstable creatinine concentrations, including patients and those with serious co-morbid conditions. Patients with extremes in muscle mass or diet. The data above are obtained from the National Kidney Disease Education Program (NKDEP) which additionally recommends that when the eGFR is used in patients with extremes of body mass index for purposes of drug dosing, the eGFR should be multiplied by the estimated BMI. [facility] CHEM PANEL BUN 13 mg/dL 7 - 22 11/04/2014 [facility] CHEM PANEL CO2 29 meq/L 24 - 32 11/04/2014 [facility] CHEM PANEL ALT 45 unit/L 0 - 65 11/04/2014 [facility] CHEM PANEL Creatinine Lvl 0.7 mg/dL 0.5 - 1.4 11/04/2014 [facility] CHEM PANEL Total Protein 6.6 g/dL 6.4 - 8.4 11/04/2014 [facility] CHEM PANEL Albumin Lvl 3.0 g/dL 3.5 - 5.0 11/04/2014 [facility] CHEM PANEL Bili Total 0.3 mg/dL 0.2 - 1.3 11/04/2014 [facility] CHEM PANEL Alk Phos 74 unit/L 39 - 136 11/04/2014 [facility] CHEM PANEL AST 21 unit/L 0 - 37 11/04/2014 [facility] CHEM PANEL Glucose Lvl 142 mg/dL 70 - 99 11/04/2014 2Interpretive Data: Adult reference range values reflect the clinical guidelines of the [place] [employer]. [facility] CHEM PANEL Sodium Lvl 138 meq/L 135 - 145 11/04/2014 [facility] CHEM PANEL Potassium Lvl 4.3 meq/L 3.5 - 5.1 11/04/2014 [facility] CHEM PANEL Chloride Lvl 107 meq/L 95 - 109 11/04/2014 [facility] CHEM PANEL Calcium Lvl 8.0 mg/dL 8.5 - 10.5 11/04/2014 [facility] CHEM PANEL Globulin 3.6 g/dL 2.0 - 4.0 11/04/2014 [facility] CHEM PANEL A/G Ratio 0.8 0.7 - 1.6 11/04/2014 [facility] CHEM PANEL B/C Ratio 19 6 - 25 11/04/2014 [facility] CHEM PANEL AGAP 6.3 meq/L 10.0 - 20.0 11/04/2014 [facility] HEMATOLOGY Monocytes # 0.5 K/CMM 0.0 - 0.8 11/04/2014 [facility] HEMATOLOGY Segs-Bands # 5.5 K/CMM 1.5 - 8.1 11/04/2014 [facility] HEMATOLOGY Lymphocytes # 3.0 K/CMM 1.0 - 5.5 11/04/2014 [facility] HEMATOLOGY Basophils 0.7 % 0.0 - 1.0 11/04/2014 [facility] HEMATOLOGY Basophils # 0.1 K/CMM 0.0 - 0.2 11/04/2014 [facility] HEMATOLOGY Monocytes 5.5 % 2.0 - 12.0 11/04/2014 [facility] HEMATOLOGY Eosinophils 2.0 % 0.0 - 4.0 11/04/2014 [facility] HEMATOLOGY Segs 59.7 % 45.0 - 75.0 11/04/2014 [facility] HEMATOLOGY Lymphocytes 32.1 % 20.0 - 40.0 11/04/2014 [facility] HEMATOLOGY Eosinophils # 0.2 K/CMM 0.0 - 0.5 11/04/2014 [facility] HEMATOLOGY WBC 9.3 K/CMM 3.7 - 10.4 11/04/2014 [facility] HEMATOLOGY MCV 82.7 fL 80.0 - 98.0 11/04/2014 [facility] HEMATOLOGY Hct 36.9 % 36.0 - 48.0 11/04/2014 [facility] HEMATOLOGY Hgb 12.3 g/dL 12.0 - 16.0 11/04/2014 [facility] HEMATOLOGY RBC 4.46 M/CMM 4.20 - 5.40 11/04/2014 [facility] MCH 27.5 pg 27.0 - 31.0 11/04/2014 [facility] HEMATOLOGY MPV 8.8 fL 7.4 - 10.4 11/04/2014 [facility] HEMATOLOGY Platelet 318 K/CMM 133 - 450 11/04/2014 [facility] RDW 14.0 % 11.5 - 14.5 11/04/2014 [facility] MCHC 33.2 g/dL 32.0 - 36.0 11/04/2014 [facility] URINE AND STOOL UA Urobilinogen <=1.0 mg/dL 0.1 - 1.0 10/30/2014 [facility] URINE AND STOOL UA Bacteria Occasional /HPF None Seen /HPF 10/30/2014 [facility] URINE AND STOOL UA Turbidity Marked *ABN* (10/30/14 8:37 AM) Clear 10/30/2014 [facility] URINE AND STOOL UA Color Yellow *NA* (10/30/14 8:37 AM) Yellow 10/30/2014 [facility] URINE AND STOOL UA Protein Negative mg/dL Negative mg/dL 10/30/2014 [facility] URINE AND STOOL UA Glucose Negative mg/dL Negative mg/dL 10/30/2014 [facility] URINE AND STOOL UA pH 5.0 5.0 - 8.0 10/30/2014 [facility] URINE AND STOOL UA Spec Grav 1.029 <=1.030 10/30/2014 [facility] URINE AND STOOL UA Mucus Few /LPF None Seen /LPF 10/30/2014 [facility] URINE AND STOOL UA Leuk Est Moderate *ABN* (10/30/14 8:37 AM) Negative 10/30/2014 [facility] URINE AND STOOL UA Sq Epi Many /LPF Few /LPF 10/30/2014 [facility] URINE AND STOOL UA RBC 4 /HPF 0 - 2 10/30/2014 [facility] URINE AND STOOL UA WBC 21 /HPF 0 - 5 10/30/2014 [facility] URINE AND STOOL UA Bili Negative *NA* (10/30/14 8:37 AM) Negative 10/30/2014 [facility] URINE AND STOOL UA Ketones Negative mg/dL Negative mg/dL 10/30/2014 [facility] URINE AND STOOL UA Nitrite Negative (10/30/14 8:37 AM) Negative 10/30/2014 [facility] URINE AND STOOL UA Blood Moderate *ABN* (10/30/14 8:37 AM) Negative 10/30/2014 [facility] URINE CHEM U Preg Negative (10/30/14 8:37 AM) Negative 10/30/2014 [facility] ELECTROLYTES Sodium Lvl 136 meq/L 135 - 145 10/30/2014 [facility] ELECTROLYTES Chloride Lvl 107 meq/L 95 - 109 10/30/2014 [facility] ELECTROLYTES Potassium Lvl 3.8 meq/L 3.5 - 5.1 10/30/2014 [facility] ELECTROLYTES Calcium Lvl 8.3 mg/dL 8.5 - 10.5 10/30/2014 [facility] ELECTROLYTES eGFR 117 mL/min/1.73m2 10/30/2014 1Result Comment: The eGFR is calculated using the CKD-EPI formula. In most young, healthy individuals the eGFR will be >90 mL/min/1.73m2. The eGFR declines with age. An eGFR of 60-89 may be normal in some populations, particularly the elderly, for whom the CKD-EPI formula has not been extensively validated. Use of the eGFR is not recommended in the following populations: Individuals with unstable creatinine concentrations, including patients and those with serious co-morbid conditions. Patients with extremes in muscle mass or diet. The data above are obtained from the National Kidney Disease Education Program (NKDEP) which additionally recommends that when the eGFR is used in patients with extremes of body mass index for purposes of drug dosing, the eGFR should be multiplied by the estimated BMI. [facility] ELECTROLYTES Creatinine Lvl 0.7 mg/dL 0.5 - 1.4 10/30/2014 [facility] ELECTROLYTES CO2 23 meq/L 24 - 32 10/30/2014 [facility] ELECTROLYTES Albumin Lvl 3.4 g/dL 3.5 - 5.0 10/30/2014 [facility] ELECTROLYTES ALT 31 unit/L 0 - 65 10/30/2014 [facility] ELECTROLYTES Alk Phos 85 unit/L 39 - 136 10/30/2014 [facility] ELECTROLYTES AST 22 unit/L 0 - 37 10/30/2014 [facility] ELECTROLYTES Total Protein 7.4 g/dL 6.4 - 8.4 10/30/2014 [facility] ELECTROLYTES Bili Total 0.3 mg/dL 0.2 - 1.3 10/30/2014 [facility] ELECTROLYTES Glucose Lvl 129 mg/dL 70 - 99 10/30/2014 2Interpretive Data: Adult reference range values reflect the clinical guidelines of the [place] [employer]. [facility] ELECTROLYTES BUN 14 mg/dL 7 - 22 10/30/2014 [facility] ELECTROLYTES A/G Ratio 0.8 0.7 - 1.6 10/30/2014 [facility] ELECTROLYTES AGAP 9.8 meq/L 10.0 - 20.0 10/30/2014 [facility] ELECTROLYTES B/C Ratio 20 6 - 25 10/30/2014 [facility] ELECTROLYTES Globulin 4.0 g/dL 2.0 - 4.0 10/30/2014 [facility] HEMATOLOGY Basophils 0.8 % 0.0 - 1.0 10/30/2014 [facility] HEMATOLOGY Segs-Bands # 6.0 K/CMM 1.5 - 8.1 10/30/2014 [facility] HEMATOLOGY Monocytes # 0.6 K/CMM 0.0 - 0.8 10/30/2014 [facility] HEMATOLOGY Lymphocytes # 1.8 K/CMM 1.0 - 5.5 10/30/2014 [facility] HEMATOLOGY Eosinophils # 0.2 K/CMM 0.0 - 0.5 10/30/2014 [facility] HEMATOLOGY Basophils # 0.1 K/CMM 0.0 - 0.2 10/30/2014 [facility] HEMATOLOGY Eosinophils 2.8 % 0.0 - 4.0 10/30/2014 [facility] HEMATOLOGY Monocytes 7.1 % 2.0 - 12.0 10/30/2014 [facility] HEMATOLOGY Segs 68.8 % 45.0 - 75.0 10/30/2014 [facility] HEMATOLOGY Lymphocytes 20.5 % 20.0 - 40.0 10/30/2014 [facility] HEMATOLOGY WBC 8.7 K/CMM 3.7 - 10.4 10/30/2014 [facility] HEMATOLOGY RBC 4.70 M/CMM 4.20 - 5.40 10/30/2014 [facility] HEMATOLOGY Hgb 12.8 g/dL 12.0 - 16.0 10/30/2014 [facility] Hct 38.8 % 36.0 - 48.0 10/30/2014 [facility] MCV 82.6 fL 80.0 - 98.0 10/30/2014 [facility] MCH 27.2 pg 27.0 - 31.0 10/30/2014 [facility] MCHC 32.9 g/dL 32.0 - 36.0 10/30/2014 [facility] RDW 14.3 % 11.5 - 14.5 10/30/2014 [facility] Platelet 334 K/CMM 133 - 450 10/30/2014 [facility] MPV 8.7 fL 7.4 - 10.4 10/30/2014 [facility] ED Abdomen/Pelvis IV contrast only CT ED Abdomen/Pelvis IV contrast only CT CT SCAN OF THE ABDOMEN AND PELVIS WITH CONTRAST. HX: Abdominal pain, acute. COMPARISON: CT abdomen pelvis 07/08/2012. Technique: Helical CT images were obtained from the domes the diaphragms to the symphysis pubis following the administration of intravenous contrast. No p.o. contrast was given. ABDOMEN AND PELVIS: The lung bases are clear. There are no pleural effusions. The heart is normal in size. Grossly normal gallbladder. Diffuse fatty liver infiltration. The spleen, pancreas, and adrenals are normal in appearance. The kidneys show good, symmetrical, excretion without hydronephrosis. grossly normal appendix. No abdominal masses, adenopathy, ascites, or fluid collections are seen. Small fat containing umbilical hernia is present. Stable uterus and adnexa. IMPRESSION: 1. No convincing evidence of acute appendicitis. 2. Diffuse fatty liver infiltration. 3. Small fat containing umbilical hernia SL: 12 10/30/2014 - - Read by: Juwan Bailey MD Dictated Date/time: 10/30/14 09:28 Electronically Signed by: Juwan Bailey MD 10/30/14 09:31 FINAL REPORT [facility] URINE AND STOOL UA Urobilinogen <=1.0 mg/dL 0.1 - 1.0 06/23/2014 [facility] URINE AND STOOL UA Color Ltyellow 06/23/2014 [facility] URINE AND STOOL UA Bacteria Occasional /HPF None Seen /HPF 06/23/2014 [facility] URINE AND STOOL UA RBC 2 /HPF 0 - 2 06/23/2014 [facility] URINE AND STOOL UA Sq Epi Few /LPF Few /LPF 06/23/2014 [facility] URINE AND STOOL UA WBC 11 /HPF 0 - 5 06/23/2014 [facility] URINE AND STOOL UA Leuk Est Small *ABN* (06/23/14 9:40 AM) Negative 06/23/2014 [facility] URINE AND STOOL UA Nitrite Negative (06/23/14 9:40 AM) Negative 06/23/2014 [facility] URINE AND STOOL UA Blood Small *ABN* (06/23/14 9:40 AM) Negative 06/23/2014 [facility] URINE AND STOOL UA Spec Grav 1.015 <=1.030 06/23/2014 [facility] URINE AND STOOL UA Glucose Negative mg/dL Negative mg/dL 06/23/2014 [facility] URINE AND STOOL UA Turbidity Slight *ABN* (06/23/14 9:40 AM) Clear 06/23/2014 [facility] URINE AND STOOL UA Protein Negative mg/dL Negative mg/dL 06/23/2014 [facility] URINE AND STOOL UA pH 5.0 5.0 - 8.0 06/23/2014 [facility] URINE AND STOOL UA Bili Negative *NA* (06/23/14 9:40 AM) Negative 06/23/2014 [facility] URINE AND STOOL UA Ketones Negative mg/dL Negative mg/dL 06/23/2014 [facility] URINE CHEM U Preg Negative (06/23/14 9:40 AM) Negative 06/23/2014 [facility] CHEM PANEL eGFR 117 mL/min/1.73m2 06/23/2014 1Result Comment: The eGFR is calculated using the CKD-EPI formula. In most young, healthy individuals the eGFR will be >90 mL/min/1.73m2. The eGFR declines with age. An eGFR of 60-89 may be normal in some populations, particularly the elderly, for whom the CKD-EPI formula has not been extensively validated. Use of the eGFR is not recommended in the following populations: Individuals with unstable creatinine concentrations, including patients and those with serious co-morbid conditions. Patients with extremes in muscle mass or diet. The data above are obtained from the National Kidney Disease Education Program (NKDEP) which additionally recommends that when the eGFR is used in patients with extremes of body mass index for purposes of drug dosing, the eGFR should be multiplied by the estimated BMI. [facility] CHEM PANEL Chloride Lvl 106 meq/L 95 - 109 06/23/2014 [facility] CHEM PANEL Potassium Lvl 3.8 meq/L 3.5 - 5.1 06/23/2014 [facility] CHEM PANEL CO2 24 meq/L 24 - 32 06/23/2014 [facility] CHEM PANEL Calcium Lvl 8.4 mg/dL 8.5 - 10.5 06/23/2014 [facility] CHEM PANEL BUN 12 mg/dL 7 - 22 06/23/2014 [facility] CHEM PANEL Glucose Lvl 158 mg/dL 70 - 99 06/23/2014 2Interpretive Data: Adult reference range values reflect the clinical guidelines of the [place] [employer]. [facility] CHEM PANEL Sodium Lvl 137 meq/L 135 - 145 06/23/2014 [facility] CHEM PANEL Creatinine Lvl 0.7 mg/dL 0.5 - 1.4 06/23/2014 [facility] CHEM PANEL AGAP 10.8 meq/L 10.0 - 20.0 06/23/2014 [facility] ENDOCRINOLOGY S Preg Negative *NA* (06/23/14 8:54 AM) Negative 06/23/2014 [facility] HEMATOLOGY Eosinophils # 0.3 K/CMM 0.0 - 0.5 06/23/2014 [facility] HEMATOLOGY Monocytes # 0.5 K/CMM 0.0 - 0.8 06/23/2014 [facility] HEMATOLOGY Basophils # 0.1 K/CMM 0.0 - 0.2 06/23/2014 [facility] HEMATOLOGY Lymphocytes 28.8 % 20.0 - 40.0 06/23/2014 [facility] HEMATOLOGY Segs 62.7 % 45.0 - 75.0 06/23/2014 [facility] HEMATOLOGY Eosinophils 2.7 % 0.0 - 4.0 06/23/2014 [facility] HEMATOLOGY Monocytes 5.1 % 2.0 - 12.0 06/23/2014 [facility] HEMATOLOGY Basophils 0.7 % 0.0 - 1.0 06/23/2014 [facility] HEMATOLOGY Segs-Bands # 6.3 K/CMM 1.5 - 8.1 06/23/2014 [facility] HEMATOLOGY Lymphocytes # 2.9 K/CMM 1.0 - 5.5 06/23/2014 [facility] HEMATOLOGY MCHC 32.3 g/dL 32.0 - 36.0 06/23/2014 [facility] HEMATOLOGY RDW 14.2 % 11.5 - 14.5 06/23/2014 [facility] HEMATOLOGY Platelet 336 K/CMM 133 - 450 06/23/2014 [facility] HEMATOLOGY MPV 8.9 fL 7.4 - 10.4 06/23/2014 [facility] HEMATOLOGY MCV 83.5 fL 80.0 - 98.0 06/23/2014 [facility] HEMATOLOGY MCH 27.0 pg 27.0 - 31.0 06/23/2014 [facility] HEMATOLOGY Hct 36.7 % 36.0 - 48.0 06/23/2014 [facility] HEMATOLOGY RBC 4.39 M/CMM 4.20 - 5.40 06/23/2014 [facility] HEMATOLOGY Hgb 11.9 g/dL 12.0 - 16.0 06/23/2014 [facility] HEMATOLOGY WBC 10.1 K/CMM 3.7 - 10.4 06/23/2014 [facility] CHEMISTRY Lipase Lvl 167 unit/L 73 - 393 07/09/2012 Normal [facility] CHEMISTRY B/C Ratio 13 6 - 25 07/09/2012 Normal [facility] CHEMISTRY AGAP 9.9 meq/L 10.0 - 20.0 07/09/2012 LOW [facility] CHEMISTRY Globulin 3.8 g/dL 2.0 - 4.0 07/09/2012 Normal [facility] CHEMISTRY A/G Ratio 0.9 0.7 - 1.6 07/09/2012 Normal [facility] CHEMISTRY Glucose Lvl 105 mg/dL 70 - 99 07/09/2012 [facility] 2Interpretive Data: Adult reference range values reflect the clinical guidelines of the [place] [employer]. [facility] CHEMISTRY BUN 12 mg/dL 7 - 22 07/09/2012 Normal [facility] CHEMISTRY Creatinine Lvl 0.9 mg/dL 0.5 - 1.4 07/09/2012 Normal [facility] CHEMISTRY CO2 27 meq/L 24 - 32 07/09/2012 Normal [facility] CHEMISTRY Calcium Lvl 8.3 mg/dL 8.5 - 10.5 07/09/2012 LOW [facility] CHEMISTRY Sodium Lvl 141 meq/L 135 - 145 07/09/2012 Normal [facility] CHEMISTRY Potassium Lvl 3.9 meq/L 3.5 - 5.1 07/09/2012 Normal [facility] CHEMISTRY Chloride Lvl 108 meq/L 95 - 109 07/09/2012 Normal [facility] CHEMISTRY Albumin Lvl 3.3 g/dL 3.5 - 5.0 07/09/2012 LOW [facility] CHEMISTRY eGFR 88 mL/min/1.73m2 07/09/2012 NA 1Result Comment: The eGFR is calculated using the CKD-EPI formula. In most young, healthy individuals the eGFR will be >90 mL/min/1.73m2. The eGFR declines with age. An eGFR of 60-89 may be normal in some populations, particularly the elderly, for whom the CKD-EPI formula has not been extensively validated. Use of the eGFR is not recommended in the following populations: Individuals with unstable creatinine concentrations, including patients and those with serious co-morbid conditions. Patients with extremes in muscle mass or diet. The data above are obtained from the National Kidney Disease Education Program (NKDEP) which additionally recommends that when the eGFR is used in patients with extremes of body mass index for purposes of drug dosing, the eGFR should be multiplied by the estimated BMI. [facility] CHEMISTRY Alk Phos 82 unit/L 39 - 136 07/09/2012 Normal [facility] CHEMISTRY Bili Total 0.2 mg/dL 0.2 - 1.3 07/09/2012 Normal [facility] CHEMISTRY ALT 29 unit/L 0 - 65 07/09/2012 Normal [facility] CHEMISTRY Total Protein 7.1 g/dL 6.4 - 8.4 07/09/2012 Normal [facility] CHEMISTRY AST 19 unit/L 0 - 37 07/09/2012 Normal [facility] HEMATOLOGY Lymphocytes # 3.4 K/CMM 1.0 - 5.5 07/09/2012 Normal [facility] HEMATOLOGY Eosinophils # 0.2 K/CMM 0.0 - 0.5 07/09/2012 Normal [facility] HEMATOLOGY Basophils # 0.0 K/CMM 0.0 - 0.2 07/09/2012 Normal [facility] HEMATOLOGY Monocytes # 0.6 K/CMM 0.0 - 0.8 07/09/2012 Normal [facility] HEMATOLOGY Segs-Bands # 5.5 K/CMM 1.5 - 8.1 07/09/2012 Normal [facility] HEMATOLOGY Monocytes 6.6 % 2.0 - 12.0 07/09/2012 Normal [facility] HEMATOLOGY Lymphocytes 34.9 % 20.0 - 40.0 07/09/2012 Normal [facility] HEMATOLOGY Segs 56.4 % 45.0 - 75.0 07/09/2012 Normal [facility] HEMATOLOGY Basophils 0.4 % 0.0 - 1.0 07/09/2012 Normal [facility] HEMATOLOGY Eosinophils 1.7 % 0.0 - 4.0 07/09/2012 Normal [facility] HEMATOLOGY WBC 9.8 K/CMM 3.7 - 10.4 07/09/2012 Normal [facility] HEMATOLOGY MCV 84.0 fL 81.0 - 99.0 07/09/2012 Normal [facility] HEMATOLOGY MCH 27.9 pg 27.0 - 31.0 07/09/2012 Normal [facility] HEMATOLOGY MPV 9.0 fL 7.4 - 10.4 07/09/2012 Normal [facility] HEMATOLOGY Hgb 11.8 g/dL 12.0 - 16.0 07/09/2012 LOW [facility] HEMATOLOGY RBC 4.22 M/CMM 4.20 - 5.40 07/09/2012 Normal [facility] HEMATOLOGY Hct 35.5 % 36.0 - 48.0 07/09/2012 LOW [facility] HEMATOLOGY MCHC 33.2 g/dL 32.0 - 36.0 07/09/2012 Normal [facility] HEMATOLOGY RDW 14.5 % 11.5 - 14.5 07/09/2012 Normal [facility] HEMATOLOGY Platelet 305 K/CMM 133 - 450 07/09/2012 Normal [facility] CHEMISTRY U Preg Negative (07/08/2012 22:53:00) Negative 07/09/2012 Normal [facility] URINALYSIS UA Urobilinogen 0.2 EU/dL 0.1 - 1.0 07/09/2012 Normal [facility] URINALYSIS UA Nitrite Negative (07/08/2012 22:53:00) Negative 07/09/2012 Normal [facility] URINALYSIS UA Ketones Negative *NA* (07/08/2012 22:53:00) Negative 07/09/2012 NA [facility] URINALYSIS UA Blood Small *ABN* (07/08/2012 22:53:00) Negative 07/09/2012 ABN [facility] URINALYSIS UA Glucose Negative (07/08/2012 22:53:00) Negative 07/09/2012 Normal [facility] URINALYSIS UA Bili Negative *NA* (07/08/2012 22:53:00) Negative 07/09/2012 NA [facility] URINALYSIS UA Protein Negative (07/08/2012 22:53:00) Negative 07/09/2012 Normal [facility] URINALYSIS UA pH 7.0 5.0 - 8.0 07/09/2012 Normal [facility] URINALYSIS UA Leuk Est Negative (07/08/2012 22:53:00) Negative 07/09/2012 Normal [facility] URINALYSIS UA Color Yellow *NA* (07/08/2012 22:53:00) Yellow 07/09/2012 NA [facility] URINALYSIS UA Turbidity Clear (07/08/2012 22:53:00) Clear 07/09/2012 Normal [facility] URINALYSIS UA Spec Grav 1.025 <=1.030 07/09/2012 Normal [facility] URINALYSIS UA Sq Epi Many /LPF *ABN* (07/08/2012 22:53:00) Few 07/09/2012 ABN [facility] URINALYSIS UA RBC 2 /HPF 0 - 2 07/09/2012 Normal [facility] URINALYSIS UA Bacteria Few /HPF *NA* (07/08/2012 22:53:00) None Seen 07/09/2012 NA [facility] URINALYSIS UA Mucus Few /LPF *NA* (07/08/2012 22:53:00) None Seen 07/09/2012 NA [facility] URINALYSIS UA WBC 8 /HPF 0 - 5 07/09/2012 HI [facility] CHEMISTRY U Preg Negative (04/22/2012 08:19:00) Negative 04/22/2012 Normal [facility] CHEMISTRY U Preg Negative (04/16/2012 08:45:00) Negative 04/16/2012 Normal [facility] CHEMISTRY AGAP 12.0 meq/L 10.0 - 20.0 04/16/2012 Normal [facility] CHEMISTRY Creatinine Lvl 1.0 mg/dL 0.5 - 1.4 04/16/2012 Normal [facility] CHEMISTRY BUN 13 mg/dL 7 - 22 04/16/2012 Normal [facility] CHEMISTRY Calcium Lvl 8.4 mg/dL 8.5 - 10.5 04/16/2012 LOW [facility] CHEMISTRY CO2 24 meq/L 24 - 32 04/16/2012 Normal [facility] CHEMISTRY Glucose Lvl 112 mg/dL 70 - 99 04/16/2012 HI 1Interpretive Data: Adult reference range values reflect the clinical guidelines of the [place] [employer]. [facility] CHEMISTRY Potassium Lvl 4.0 meq/L 3.5 - 5.1 04/16/2012 Normal [facility] CHEMISTRY Sodium Lvl 139 meq/L 135 - 145 04/16/2012 Normal [facility] CHEMISTRY Chloride Lvl 107 meq/L 95 - 109 04/16/2012 Normal [facility] HEMATOLOGY MCV 82.7 fL 81.0 - 99.0 04/16/2012 Normal [facility] HEMATOLOGY RDW 14.4 % 11.5 - 14.5 04/16/2012 Normal [facility] HEMATOLOGY MCH 27.5 pg 27.0 - 31.0 04/16/2012 Normal [facility] HEMATOLOGY MCHC 33.2 g/dL 32.0 - 36.0 04/16/2012 Normal [facility] HEMATOLOGY Hct 37.5 % 36.0 - 48.0 04/16/2012 Normal [facility] HEMATOLOGY WBC 8.7 K/CMM 3.7 - 10.4 04/16/2012 Normal [facility] HEMATOLOGY Hgb 12.4 g/dL 12.0 - 16.0 04/16/2012 Normal [facility] HEMATOLOGY RBC 4.53 M/CMM 4.20 - 5.40 04/16/2012 Normal [facility] HEMATOLOGY Platelet 313 K/CMM 133 - 450 04/16/2012 Normal [facility] HEMATOLOGY MPV 8.9 fL 7.4 - 10.4 04/16/2012 Normal [facility] HEMATOLOGY Basophils # 0.0 K/CMM 0.0 - 0.2 04/16/2012 Normal [facility] HEMATOLOGY Monocytes # 0.6 K/CMM 0.0 - 0.8 04/16/2012 Normal [facility] HEMATOLOGY Eosinophils # 0.1 K/CMM 0.0 - 0.5 04/16/2012 Normal [facility] HEMATOLOGY Segs-Bands # 5.2 K/CMM 1.5 - 8.1 04/16/2012 Normal [facility] HEMATOLOGY Lymphocytes # 2.9 K/CMM 1.0 - 5.5 04/16/2012 Normal [facility] HEMATOLOGY Basophils 0.4 % 0.0 - 1.0 04/16/2012 Normal [facility] HEMATOLOGY Eosinophils 1.6 % 0.0 - 4.0 04/16/2012 Normal [facility] HEMATOLOGY Monocytes 6.4 % 2.0 - 12.0 04/16/2012 Normal [facility] HEMATOLOGY Lymphocytes 32.6 % 20.0 - 40.0 04/16/2012 Normal [facility] HEMATOLOGY Segs 59.0 % 45.0 - 75.0 04/16/2012 Normal [facility] URINALYSIS UA Color Ltyellow 04/16/2012 NA [facility] URINALYSIS UA Urobilinogen <=1.0 mg/dL
*NA*
(04/16/2012 08:45:00) <sup> </sup> 0.1 - 1.0 04/16/2012 NA [facility] URINALYSIS UA RBC 2 /HPF 0 - 2 04/16/2012 Normal [facility] URINALYSIS UA WBC 2 /HPF 0 - 5 04/16/2012 Normal [facility] URINALYSIS UA Sq Epi Few /LPF *NA* (04/16/2012 08:45:00) Few 04/16/2012 NA [facility] URIN[facility] UA Bacteria Occasional /HPF *NA* (04/16/2012 08:45:00) None Seen 04/16/2012 NA [facility]IN[facility] UA pH 6.0 5.0 - 8.0 04/16/2012 Normal [facility] UA Spec Grav 1.014 <=1.030 04/16/2012 Normal [facility] URIN[facility] UA Turbidity Slight *ABN* (04/16/2012 08:45:00) Clear 04/16/2012 [facility]IN[facility] UA Bili Negative *NA* (04/16/2012 08:45:00) Negative 04/16/2012 NA [facility] UA Glucose Negative mg/dL *NA* (04/16/2012 08:45:00) Negative 04/16/2012 [facility] UA Ketones Negative mg/dL *NA* (04/16/2012 08:45:00) Negative 04/16/2012 NA [facility] URINAL[facility] UA Leuk Est Trace *ABN* (04/16/2012 08:45:00) Negative 04/16/2012 [facility] URIN[facility] UA Nitrite Negative (04/16/2012 08:45:00) Negative 04/16/2012 Normal [facility] URINALYSIS UA Blood Moderate *ABN* (04/16/2012 08:45:00) Negative 04/16/2012 [facility] UA Protein Negative mg/dL (04/16/2012 08:45:00) Negative 04/16/2012 Normal [facility] IMMUNOLOGY Gonorrhea PCR Negative (04/16/2012 08:43:00) Negative 04/16/2012 Normal [facility] IMMUNOLOGY Source [employer] 04/16/2012 NA [facility] IMMUNOLOGY Chlam PCR Negative (04/16/2012 08:43:00) Negative 04/16/2012 Normal [facility] IMMUNOLOGY Source Chlam [employer] 04/16/2012 NA [facility] RAPID Grp A Strep Scr Negative (11/09/2011 19:45:00) Negative 11/10/2011 Normal [facility] CHEMISTRY Lipase Lvl 160 U/L 73 - 393 10/15/2011 Normal [facility] CHEMISTRY Alk Phos 60 U/L 39 - 136 10/15/2011 Normal [facility] CHEMISTRY Calcium Lvl 8.7 mg/dL 8.5 - 10.5 10/15/2011 Normal [facility] CHEMISTRY Total Protein 7.6 g/dL 6.4 - 8.4 10/15/2011 Normal [facility] CHEMISTRY Albumin Lvl 3.8 g/dL 3.5 - 5.0 10/15/2011 Normal [facility] CHEMISTRY ALT 24 U/L 0 - 65 10/15/2011 Normal [facility] CHEMISTRY AST 17 U/L 0 - 37 10/15/2011 Normal [facility] CHEMISTRY Bili Total 0.3 mg/dL 0.2 - 1.3 10/15/2011 Normal [facility] CHEMISTRY Sodium Lvl 140 meq/L 135 - 145 10/15/2011 Normal [facility] CHEMISTRY Potassium Lvl 4.1 meq/L 3.5 - 5.1 10/15/2011 Normal [facility] CHEMISTRY Chloride Lvl 106 meq/L 95 - 109 10/15/2011 Normal [facility] CHEMISTRY Creatinine Lvl 0.7 mg/dL 0.5 - 1.4 10/15/2011 Normal [facility] CHEMISTRY Glucose Lvl 76 mg/dL 10/15/2011 NA 1Interpretive Data: Reference Ranges : 0 - 7 days : 41 - 90 mg/dL7 days - 150 yrs : 70 - 99 mg/dL (fasting), based on the clinical recommendations of the [place] [employer]. [facility] CHEMISTRY BUN 12 mg/dL 7 - 22 10/15/2011 Normal [facility] CHEMISTRY CO2 24 meq/L 24 - 32 10/15/2011 Normal [facility] CHEMISTRY Globulin 3.8 g/dL 2.0 - 4.0 10/15/2011 Normal [facility] CHEMISTRY A/G Ratio 1.0 0.7 - 1.6 10/15/2011 Normal [facility] CHEMISTRY B/C Ratio 17 6 - 25 10/15/2011 Normal [facility] CHEMISTRY AGAP 14.1 meq/L 10.0 - 20.0 10/15/2011 Normal [facility] CHEMISTRY Amylase Lvl 25 U/L 25 - 115 10/15/2011 Normal [facility] CHEMISTRY S Preg Negative *NA* (10/15/2011 14:11:00) Negative 10/15/2011 NA [facility] HEMATOLOGY Basophils # 0.1 K/CMM 0.0 - 0.2 10/15/2011 Normal [facility] HEMATOLOGY Lymphocytes 29.5 % 20.0 - 40.0 10/15/2011 Normal [facility] HEMATOLOGY Segs 62.2 % 45.0 - 75.0 10/15/2011 Normal [facility] HEMATOLOGY Segs-Bands # 7.0 K/CMM 1.5 - 8.1 10/15/2011 Normal [facility] HEMATOLOGY Lymphocytes # 3.3 K/CMM 1.0 - 5.5 10/15/2011 Normal [facility] HEMATOLOGY Basophils 1.2 % 0.0 - 1.0 10/15/2011 HI [facility] HEMATOLOGY Eosinophils 2.1 % 0.0 - 4.0 10/15/2011 Normal [facility] HEMATOLOGY Monocytes 5.0 % 2.0 - 12.0 10/15/2011 Normal [facility] HEMATOLOGY Eosinophils # 0.2 K/CMM 0.0 - 0.5 10/15/2011 Normal [facility] HEMATOLOGY Monocytes # 0.6 K/CMM 0.0 - 0.8 10/15/2011 Normal [facility] HEMATOLOGY Platelet 341 K/CMM 133 - 450 10/15/2011 Normal [facility] HEMATOLOGY MPV 9.2 fL 7.4 - 10.4 10/15/2011 Normal [facility] HEMATOLOGY RDW 14.0 % 11.5 - 14.5 10/15/2011 Normal [facility] HEMATOLOGY Hgb 13.2 g/dL 12.0 - 16.0 10/15/2011 Normal [facility] HEMATOLOGY MCHC 33.9 g/dL 32.0 - 36.0 10/15/2011 Normal [facility] HEMATOLOGY MCH 28.3 pg 27.0 - 31.0 10/15/2011 Normal [facility] HEMATOLOGY MCV 83.4 fL 81.0 - 99.0 10/15/2011 Normal [facility] HEMATOLOGY Hct 38.9 % 36.0 - 48.0 10/15/2011 Normal [facility] HEMATOLOGY RBC 4.67 M/CMM 4.20 - 5.40 10/15/2011 Normal [facility] HEMATOLOGY WBC 11.3 K/CMM 3.7 - 10.4 10/15/2011 HI [facility] URINALYSIS UA Mucus Few /LPF (10/15/2011 14:11:00) None Seen 10/15/2011 Normal [facility] URINALYSIS UA Gonzales Yeast Many /HPF *ABN* (10/15/2011 14:11:00) None Seen 10/15/2011 AB[facility] UA Sq Epi Rare /LPF (10/15/2011 14:11:00) Few 10/15/2011 Normal [facility] Micro? Performed (10/15/2011 14:11:00) 10/15/2011 Normal [facility] UR[facility]ALYSIS UA Bacteria Moderate /HPF (10/15/2011 14:11:00) None Seen 10/15/2011 Normal [facility] UA WBC 0-2 /HPF (10/15/2011 14:11:00) None Seen 10/15/2011 Normal [facility] UA RBC 51-100 /HPF *ABN* (10/15/2011 14:11:00) 0 - 2 10/15/2011 [facility] UA Leuk Est Negative (10/15/2011 14:11:00) Negative 10/15/2011 Normal [facility] URINALYSIS UA Nitrite Positive *ABN* (10/15/2011 14:11:00) Negative 10/15/2011 [facility] URINAL[facility] UA Urobilinogen 0.2 EU/dL 0.1 - 1.0 10/15/2011 Normal [facility] URINALYS[facility] UA Bili Negative *NA* (10/15/2011 14:11:00) Negative 10/15/2011 NA [facility] UA Ketones Negative *NA* (10/15/2011 14:11:00) Negative 10/15/2011 NA [facility] UR[facility]AL[facility] UA Glucose Negative (10/15/2011 14:11:00) Negative 10/15/2011 Normal [facility] UA Protein Negative (10/15/2011 14:11:00) Negative 10/15/2011 Normal [facility] UA Spec Grav >=1.030 *ABN* (10/15/2011 14:11:00) <=1.030 10/15/2011 [facility] UA Blood Large *ABN* (10/15/2011 14:11:00) Negative 10/15/2011 [facility] UA Color Yellow *NA* (10/15/2011 14:11:00) Yellow 10/15/2011 NA [facility] UA pH 5.0 5.0 - 8.0 10/15/2011 Normal [facility] URINAL[facility] UA Turbidity Slight Cloudy (10/15/2011 14:11:00) Clear 10/15/2011 Normal [facility] Vital Signs Vital Sign Value Date Comments Source Respitory Rate 16 07/31/2017 [facility] Heart Rate 72 07/31/2017 [facility] Systolic (mm Hg) 99 07/31/2017 [facility] Diastolic (mm Hg) 62 07/31/2017 [facility] Temperature Oral (F) 98.7 F 07/31/2017 [facility] Temperature Oral (F) 98.7 F 07/30/2017 [facility] Heart Rate 78 07/30/2017 [facility] Respitory Rate 16 07/30/2017 [facility] Systolic (mm Hg) 102 07/30/2017 [facility] Diastolic (mm Hg) 64 07/30/2017 [facility] Heart Rate 91 07/30/2017 [facility] Respitory Rate 16 07/30/2017 [facility] Systolic (mm Hg) 110 07/30/2017 [facility] Diastolic (mm Hg) 95 07/30/2017 [facility] Weight 90 07/30/2017 [facility] BMI Calculated 36.29 07/30/2017 [facility] Height 157.48 cm 07/30/2017 [facility] Temperature Oral (F) 98 F 07/30/2017 [facility] Weight 97.727 10/24/2016 [facility] BMI Calculated 39.41 10/24/2016 [facility] Heart Rate 86 10/24/2016 [facility] Respitory Rate 20 10/24/2016 [facility] Height 157.48 cm 10/24/2016 [facility] Temperature Oral (F) 98.0 F 10/24/2016 [facility] Systolic (mm Hg) 116 10/24/2016 [facility] Diastolic (mm Hg) 70 10/24/2016 [facility] Respitory Rate 16 09/21/2016 [facility] Temperature Oral (F) 97.8 F 09/21/2016 [facility] Heart Rate 83 09/21/2016 [facility] Systolic (mm Hg) 121 09/21/2016 [facility] Diastolic (mm Hg) 61 09/21/2016 [facility] Heart Rate 72 09/21/2016 [facility] Respitory Rate 16 09/21/2016 [facility] Temperature Oral (F) 97.4 F 09/21/2016 [facility] Weight 93.636 09/21/2016 [facility] Systolic (mm Hg) 117 09/21/2016 [facility] Diastolic (mm Hg) 69 09/21/2016 [facility] Systolic (mm Hg) 110 09/17/2016 [facility] Diastolic (mm Hg) 58 09/17/2016 [facility] Respitory Rate 16 09/17/2016 [facility] Temperature Oral (F) 98.2 F 09/17/2016 [facility] Heart Rate 72 09/17/2016 [facility] Weight 94.545 09/16/2016 [facility] BMI Calculated 38.12 09/16/2016 [facility] Height 157.48 cm 09/16/2016 [facility] Temperature Oral (F) 98.6 F 09/16/2016 [facility] Systolic (mm Hg) 107 09/16/2016 [facility] Diastolic (mm Hg) 73 09/16/2016 [facility] Respitory Rate 18 09/16/2016 [facility] Heart Rate 69 09/16/2016 [facility] Respitory Rate 18 07/13/2016 [facility] Systolic (mm Hg) 107 07/13/2016 [facility] Diastolic (mm Hg) 68 07/13/2016 [facility] Temperature Oral (F) 98 F 07/13/2016 [facility] Respitory Rate 15 07/13/2016 [facility] Systolic (mm Hg) 107 07/13/2016 [facility] Diastolic (mm Hg) 65 07/13/2016 [facility] Temperature Oral (F) 98 F 07/13/2016 [facility] Systolic (mm Hg) 110 07/13/2016 [facility] Diastolic (mm Hg) 71 07/13/2016 [facility] Respitory Rate 17 07/13/2016 [facility] Temperature Oral (F) 98 F 07/13/2016 [facility] Weight 97.727 07/13/2016 [facility] Height 162.56 cm 07/13/2016 [facility] BMI Calculated 36.98 07/13/2016 [facility] Heart Rate 75 07/13/2016 [facility] BMI Calculated 36.98 07/10/2016 [facility] Weight 97.727 07/10/2016 [facility] Height 162.56 cm 07/10/2016 [facility] Temperature Oral (F) 98.3 F 07/10/2016 [facility] Respitory Rate 18 07/10/2016 [facility] Heart Rate 74 07/10/2016 [facility] Systolic (mm Hg) 114 07/10/2016 [facility] Diastolic (mm Hg) 75 07/10/2016 [facility] Respitory Rate 14 07/08/2016 [facility] Heart Rate 77 07/08/2016 [facility] Temperature Oral (F) 97.7 F 07/08/2016 [facility] Systolic (mm Hg) 104 07/08/2016 [facility] Diastolic (mm Hg) 44 07/08/2016 [facility] Height 162.56 cm 07/07/2016 [facility] BMI Calculated 36.98 07/07/2016 [facility] Weight 97.727 07/07/2016 [facility] Temperature Oral (F) 98.0 F 07/07/2016 [facility] Respitory Rate 16 07/07/2016 [facility] Heart Rate 63 07/07/2016 [facility] Systolic (mm Hg) 120 07/07/2016 [facility] Diastolic (mm Hg) 85 07/07/2016 [facility] Systolic (mm Hg) 122 06/20/2016 [facility] Diastolic (mm Hg) 71 06/20/2016 [facility] Respitory Rate 18 06/20/2016 [facility] Heart Rate 60 06/20/2016 [facility] Temperature Oral (F) 97.7 F 06/20/2016 [facility] Respitory Rate 18 06/19/2016 [facility] Temperature Oral (F) 98.0 F 06/19/2016 [facility] Heart Rate 82 06/19/2016 [facility] Systolic (mm Hg) 126 06/19/2016 [facility] Diastolic (mm Hg) 74 06/19/2016 [facility] Respitory Rate 18 06/19/2016 [facility] BMI Calculated 36.98 06/19/2016 [facility] Weight 97.727 06/19/2016 [facility] Systolic (mm Hg) 125 06/19/2016 [facility] Diastolic (mm Hg) 79 06/19/2016 [facility] Heart Rate 70 06/19/2016 [facility] Temperature Oral (F) 98.1 F 06/19/2016 [facility] Height 162.56 cm 06/19/2016 [facility] Systolic (mm Hg) 120 06/19/2016 [facility] Diastolic (mm Hg) 51 06/19/2016 [facility] Respitory Rate 16 06/19/2016 [facility] Temperature Oral (F) 98.7 F 06/19/2016 [facility] Respitory Rate 16 06/19/2016 [facility] Respitory Rate 22 06/19/2016 [facility] Systolic (mm Hg) 127 06/19/2016 [facility] Diastolic (mm Hg) 75 06/19/2016 [facility] Temperature Oral (F) 98.3 F 06/19/2016 [facility] BMI Calculated 36.98 06/19/2016 [facility] Height 162.56 cm 06/19/2016 [facility] Weight 97.727 06/19/2016 [facility] Temperature Oral (F) 98.2 F 06/19/2016 [facility] Heart Rate 82 06/19/2016 [facility] Systolic (mm Hg) 116 06/19/2016 [facility] Diastolic (mm Hg) 81 06/19/2016 [facility] Temperature Oral (F) 98.3 F 05/25/2016 [facility] Systolic (mm Hg) 111 05/25/2016 [facility] Diastolic (mm Hg) 72 05/25/2016 [facility] Respitory Rate 18 05/25/2016 [facility] Heart Rate 66 05/25/2016 [facility] Weight 97.727 05/25/2016 [facility] Height 157.48 cm 05/25/2016 [facility] BMI Calculated 39.41 05/25/2016 [facility] Systolic (mm Hg) 123 05/25/2016 [facility] Diastolic (mm Hg) 81 05/25/2016 [facility] Heart Rate 82 05/25/2016 [facility] Respitory Rate 20 05/25/2016 [facility] Temperature Oral (F) 98.2 F 05/25/2016 [facility] Heart Rate 65 04/20/2016 [facility] Respitory Rate 16 04/20/2016 [facility] Systolic (mm Hg) 114 04/20/2016 [facility] Diastolic (mm Hg) 66 04/20/2016 [facility] Temperature Oral (F) 97.0 F 04/20/2016 [facility] Heart Rate 52 04/20/2016 [facility] Respitory Rate 18 04/20/2016 [facility] Systolic (mm Hg) 106 04/20/2016 [facility] Diastolic (mm Hg) 60 04/20/2016 [facility] Systolic (mm Hg) 115 04/20/2016 [facility] Diastolic (mm Hg) 60 04/20/2016 [facility] Heart Rate 69 04/20/2016 [facility] Respitory Rate 18 04/20/2016 [facility] Weight 100 04/20/2016 [facility] Temperature Oral (F) 97.6 F 04/20/2016 [facility] Height 157.48 cm 04/20/2016 [facility] BMI Calculated 40.32 04/20/2016 [facility] Temperature Oral (F) 98.1 F 04/19/2016 [facility] Systolic (mm Hg) 109 04/19/2016 [facility] Diastolic (mm Hg) 64 04/19/2016 [facility] Respitory Rate 18 04/19/2016 [facility] Heart Rate 74 04/19/2016 [facility] Temperature Oral (F) 98.1 F 04/19/2016 [facility] Systolic (mm Hg) 125 04/19/2016 [facility] Diastolic (mm Hg) 65 04/19/2016 [facility] Respitory Rate 18 04/19/2016 [facility] Heart Rate 63 04/19/2016 [facility] Weight 97.727 04/19/2016 [facility] Systolic (mm Hg) 153 04/19/2016 [facility] Diastolic (mm Hg) 89 04/19/2016 [facility] Heart Rate 78 04/19/2016 [facility] Respitory Rate 18 04/19/2016 [facility] Height 157.48 cm 04/19/2016 [facility] BMI Calculated 39.41 04/19/2016 [facility] Temperature Oral (F) 98.6 F 04/19/2016 [facility] Systolic (mm Hg) 113 03/22/2016 [facility] Diastolic (mm Hg) 62 03/22/2016 [facility] Respitory Rate 18 03/22/2016 [facility] Heart Rate 65 03/22/2016 [facility] Temperature Oral (F) 98.3 F 03/22/2016 [facility] Weight 97.727 03/21/2016 [facility] Height 157.48 cm 03/21/2016 [facility] Respitory Rate 17 03/21/2016 [facility] Temperature Oral (F) 98.3 F 03/21/2016 [facility] BMI Calculated 39.41 03/21/2016 [facility] Systolic (mm Hg) 103 03/21/2016 [facility] Diastolic (mm Hg) 69 03/21/2016 [facility] Heart Rate 64 03/21/2016 [facility] Systolic (mm Hg) 103 12/05/2015 [facility] Diastolic (mm Hg) 63 12/05/2015 [facility] Respitory Rate 16 12/05/2015 [facility] Heart Rate 61 12/05/2015 [facility] Temperature Oral (F) 98 F 12/05/2015 [facility] Respitory Rate 18 12/05/2015 [facility] Heart Rate 76 12/05/2015 [facility] Respitory Rate 16 12/05/2015 [facility] Systolic (mm Hg) 90 12/05/2015 [facility] Diastolic (mm Hg) 59 12/05/2015 [facility] Temperature Oral (F) 98.3 F 12/05/2015 [facility] Systolic (mm Hg) 103 12/05/2015 [facility] Diastolic (mm Hg) 64 12/05/2015 [facility] Temperature Oral (F) 97.6 F 12/05/2015 [facility] Heart Rate 66 12/05/2015 [facility] BMI Calculated 32.49 12/03/2015 [facility] Weight 94.091 12/03/2015 [facility] Height 170.18 cm 12/03/2015 [facility] Height 157.48 cm 12/03/2015 [facility] Weight 95 12/03/2015 [facility] BMI Calculated 38.31 12/03/2015 [facility] Height 157.48 cm 12/02/2015 [facility] Weight 95.455 12/02/2015 [facility] BMI Calculated 38.49 12/02/2015 [facility] Systolic (mm Hg) 110 11/10/2015 [facility] Diastolic (mm Hg) 70 11/10/2015 [facility] Respitory Rate 20 11/10/2015 [facility] Heart Rate 74 11/10/2015 [facility] Temperature Oral (F) 98.3 F 11/10/2015 [facility] Temperature Oral (F) 98.4 F 11/10/2015 [facility] BMI Calculated 39.41 11/10/2015 [facility] Weight 97.727 11/10/2015 [facility] Height 157.48 cm 11/10/2015 [facility] Respitory Rate 20 11/10/2015 [facility] Heart Rate 73 11/10/2015 [facility] Systolic (mm Hg) 107 11/10/2015 [facility] Diastolic (mm Hg) 62 11/10/2015 [facility] Systolic (mm Hg) 134 10/17/2015 [facility] Diastolic (mm Hg) 80 10/17/2015 [facility] Respitory Rate 18 10/17/2015 [facility] Heart Rate 80 10/17/2015 [facility] Temperature Oral (F) 98.0 F 10/17/2015 [facility] BMI Calculated 39.41 10/17/2015 [facility] Weight 97.727 10/17/2015 [facility] Height 157.48 cm 10/17/2015 [facility] Height 157.48 cm 09/21/2015 [facility] Weight 95 09/21/2015 [facility] BMI Calculated 38.31 09/21/2015 [facility] Respitory Rate 18 09/21/2015 [facility] Heart Rate 66 09/21/2015 [facility] Temperature Oral (F) 98.1 F 09/21/2015 [facility] Systolic (mm Hg) 108 09/21/2015 [facility] Diastolic (mm Hg) 67 09/21/2015 [facility] Respitory Rate 18 06/11/2015 [facility] Heart Rate 54 06/11/2015 [facility] Systolic (mm Hg) 100 06/11/2015 [facility] Diastolic (mm Hg) 60 06/11/2015 [facility] Temperature Oral (F) 98.0 F 06/11/2015 [facility] Heart Rate 66 06/11/2015 [facility] Respitory Rate 18 06/11/2015 [facility] Systolic (mm Hg) 115 06/11/2015 [facility] Diastolic (mm Hg) 57 06/11/2015 [facility] Temperature Oral (F) 98.0 F 06/11/2015 [facility] Weight 95.455 06/11/2015 [facility] Systolic (mm Hg) 117 06/11/2015 [facility] Diastolic (mm Hg) 79 06/11/2015 [facility] Heart Rate 80 06/11/2015 [facility] Respitory Rate 18 06/11/2015 [facility] Weight 97.727 05/14/2015 [facility] BMI Calculated 39.41 05/14/2015 [facility] Respitory Rate 16 05/14/2015 [facility] Heart Rate 70 05/14/2015 [facility] Systolic (mm Hg) 119 05/14/2015 [facility] Diastolic (mm Hg) 79 05/14/2015 [facility] Temperature Oral (F) 98.5 F 05/14/2015 [facility] Height 157.48 cm 05/14/2015 [facility] Respitory Rate 27 04/21/2015 [facility] Temperature Oral (F) 98.0 F 04/21/2015 [facility] Systolic (mm Hg) 104 04/21/2015 [facility] Diastolic (mm Hg) 62 04/21/2015 [facility] Respitory Rate 19 04/21/2015 [facility] BMI Calculated 45.82 04/21/2015 [facility] Weight 113.636 04/21/2015 [facility] Systolic (mm Hg) 124 04/21/2015 [facility] Diastolic (mm Hg) 75 04/21/2015 [facility] Heart Rate 65 04/21/2015 [facility] Temperature Oral (F) 98.1 F 04/21/2015 [facility] Respitory Rate 18 04/21/2015 [facility] Height 157.48 cm 04/21/2015 [facility] Heart Rate 65 04/19/2015 [facility] Temperature Oral (F) 98.3 F 04/19/2015 [facility] Respitory Rate 18 04/19/2015 [facility] Systolic (mm Hg) 135 04/19/2015 [facility] Diastolic (mm Hg) 78 04/19/2015 [facility] Respitory Rate 19 04/19/2015 [facility] Weight 97.727 04/19/2015 [facility] Temperature Oral (F) 98.4 F 04/19/2015 [facility] Height 157.48 cm 04/19/2015 [facility] Heart Rate 67 04/19/2015 [facility] Respitory Rate 18 04/19/2015 [facility] Systolic (mm Hg) 143 04/19/2015 [facility] Diastolic (mm Hg) 76 04/19/2015 [facility] BMI Calculated 39.41 04/19/2015 [facility] Respitory Rate 22 03/17/2015 [facility] Heart Rate 80 03/17/2015 [facility] Systolic (mm Hg) 122 03/17/2015 [facility] Diastolic (mm Hg) 80 03/17/2015 [facility] Height 157.48 cm 03/17/2015 [facility] BMI Calculated 32.99 03/17/2015 [facility] Temperature Oral (F) 98.6 F 03/17/2015 [facility] Weight 81.818 03/17/2015 [facility] Heart Rate 70 03/10/2015 [facility] Systolic (mm Hg) 119 03/10/2015 [facility] Diastolic (mm Hg) 79 03/10/2015 [facility] Respitory Rate 20 03/10/2015 [facility] Temperature Oral (F) 97.9 F 03/10/2015 [facility] Heart Rate 66 03/09/2015 [facility] Respitory Rate 18 03/09/2015 [facility] Systolic (mm Hg) 109 03/09/2015 [facility] Diastolic (mm Hg) 69 03/09/2015 [facility] BMI Calculated 40.32 03/09/2015 [facility] Weight 100 03/09/2015 [facility] Height 157.48 cm 03/09/2015 [facility] Heart Rate 64 03/09/2015 [facility] Respitory Rate 18 03/09/2015 [facility] Systolic (mm Hg) 121 03/09/2015 [facility] Diastolic (mm Hg) 79 03/09/2015 [facility] Temperature Oral (F) 98.1 F 03/09/2015 [facility] Systolic (mm Hg) 106 11/04/2014 [facility] Diastolic (mm Hg) 57 11/04/2014 [facility] Respitory Rate 18 11/04/2014 [facility] Heart Rate 59 11/04/2014 [facility] Temperature Oral (F) 98.5 F 11/04/2014 [facility] Respitory Rate 18 11/04/2014 [facility] Heart Rate 62 11/04/2014 [facility] Temperature Oral (F) 98.4 F 11/04/2014 [facility] Systolic (mm Hg) 100 11/04/2014 [facility] Diastolic (mm Hg) 61 11/04/2014 [facility] Temperature Oral (F) 98.3 F 11/04/2014 [facility] Systolic (mm Hg) 106 11/04/2014 [facility] Diastolic (mm Hg) 71 11/04/2014 [facility] Respitory Rate 18 11/04/2014 [facility] Heart Rate 58 11/04/2014 [facility] Height 160.02 cm 11/04/2014 [facility] BMI Calculated 38.17 11/04/2014 [facility] Weight 97.727 11/04/2014 [facility] Temperature Oral (F) 98.3 F 10/30/2014 [facility] Systolic (mm Hg) 102 10/30/2014 [facility] Diastolic (mm Hg) 63 10/30/2014 [facility] Respitory Rate 18 10/30/2014 [facility] Heart Rate 66 10/30/2014 [facility] Systolic (mm Hg) 111 10/30/2014 [facility] Diastolic (mm Hg) 76 10/30/2014 [facility] Heart Rate 84 10/30/2014 [facility] Respitory Rate 18 10/30/2014 [facility] Temperature Oral (F) 99.0 F 10/30/2014 [facility] Height 160.02 cm 10/30/2014 [facility] BMI Calculated 38.17 10/30/2014 [facility] Weight 97.727 10/30/2014 [facility] Respitory Rate 18 06/23/2014 [facility] Heart Rate 63 06/23/2014 [facility] Temperature Oral (F) 98.2 F 06/23/2014 [facility] Diastolic (mm Hg) 65 06/23/2014 [facility] Systolic (mm Hg) 118 06/23/2014 [facility] Weight 52.273 06/23/2014 [facility] BMI Calculated 21.08 06/23/2014 [facility] Height 157.48 cm 06/23/2014 [facility] Heart Rate 63 06/23/2014 [facility] Diastolic (mm Hg) 82 06/23/2014 [facility] Systolic (mm Hg) 132 06/23/2014 [facility] Respitory Rate 16 06/23/2014 [facility] Temperature Oral (F) 98.2 F 06/23/2014 [facility] Diastolic (mm Hg) 77 06/10/2014 [facility] Systolic (mm Hg) 122 06/10/2014 [facility] Temperature Oral (F) 98.0 F 06/10/2014 [facility] Heart Rate 88 06/10/2014 [facility] Respitory Rate 18 06/10/2014 [facility] Respitory Rate 20 06/10/2014 [facility] Weight 97.727 06/10/2014 [facility] Heart Rate 91 06/10/2014 [facility] Diastolic (mm Hg) 80 06/10/2014 [facility] Systolic (mm Hg) 124 06/10/2014 [facility] Temperature Oral (F) 98.1 F 06/10/2014 [facility] Respitory Rate 20 06/10/2014 [facility] Height 157.48 cm 07/09/2012 [facility] Weight 98.636 07/09/2012 [facility] Weight 98.182 04/22/2012 [facility] Height 160.02 cm 04/22/2012 [facility] Height 160.02 cm 04/16/2012 [facility] Weight 98.182 04/16/2012 [facility] Weight 95.455 11/11/2011 [facility] Height 160.02 cm 11/11/2011 [facility] Weight 97.727 11/09/2011 [facility] Height 160.02 cm 11/09/2011 [facility] Diastolic (mm Hg) 65 10/16/2011 [facility] Systolic (mm Hg) 110 10/16/2011 [facility] Heart Rate 71 10/16/2011 [facility] Respitory Rate 18 10/16/2011 [facility] Temperature Oral (F) 98.3 F 10/16/2011 [facility] Temperature Oral (F) 98.6 F 10/15/2011 [facility] Respitory Rate 18 10/15/2011 [facility] Heart Rate 68 10/15/2011 [facility] Diastolic (mm Hg) 60 10/15/2011 [facility] Systolic (mm Hg) 114 10/15/2011 [facility] Weight 90.909 10/15/2011 [facility] Height 157.48 cm 10/15/2011 [facility] Heart Rate 65 10/15/2011 [facility] Diastolic (mm Hg) 75 10/15/2011 [facility] Temperature Oral (F) 98.1 F 10/15/2011 [facility] Respitory Rate 18 10/15/2011 [facility] Systolic (mm Hg) 112 10/15/2011 [facility] Temperature Oral (F) 98.4 F 08/02/2011 [facility] Heart Rate 68.0 08/02/2011 [facility] Diastolic (mm Hg) 70.0 08/02/2011 [facility] Respitory Rate 18.0 08/02/2011 [facility] Systolic (mm Hg) 118.0 08/02/2011 [facility] Weight 94.091 08/02/2011 [facility] Height 160.02 cm 08/02/2011 [facility] Encounters Location Location Details Encounter Type Encounter Number Reason For Visit Attending Provider ADM Date DC Date Status Source [facility] [id number] ARTEMIO CAITY 08/02/2011 08/02/2011 Active [facility] [id number] NADIM SYNAGOGUE 10/15/2011 10/15/2011 Active [facility] [id number] HEDY DE SANTIAGOBALL 11/09/2011 11/09/2011 Active [facility] [id number] JUSTINA PRYORVIVEK 11/10/2011 11/10/2011 Active [facility] [id number] NADIM SYNAGOGUE 04/16/2012 04/16/2012 Active [facility] [id number] DREW FUNG 04/22/2012 04/22/2012 Active [facility] [id number] ALFONSO SAAVEDRA 07/08/2012 07/08/2012 Active [facility] [id number] Alfonso Zaragoza 06/10/2014 06/10/2014 [facility] [id number] Dat Elkins 06/23/2014 06/23/2014 [facility] [id number] Nadim Sikhism 10/30/2014 10/30/2014 [facility] [id number] Nadim Sikhism 11/04/2014 11/04/2014 [facility] [id number] Artemio Gonzales 03/09/2015 03/10/2015 [facility] [id number] Michelle Wellerowole 03/17/2015 03/17/2015 [facility] [id number] Michelle Fadowole 04/19/2015 04/19/2015 [facility] [id number] Laurel Sim 04/21/2015 04/21/2015 [facility] [id number] Axel Ruffin 05/14/2015 05/14/2015 [facility] [id number] Daly Johansenan 06/11/2015 06/11/2015 [facility] [id number] Ableslie Gerardo 09/21/2015 09/21/2015 [facility] [id number] Sunil De Souzaanurag 10/17/2015 10/17/2015 [facility] [id number] Tanvir Carrillo 11/10/2015 11/10/2015 [facility] Inpatient [id number] Willie Lopez 12/02/2015 12/05/2015 [facility] lab results [id number] 12/09/2015 12/09/2015 [facility] [id number] Nadim Sikhism 03/21/2016 03/22/2016 [facility] Emergency [id number] Janey Nguyenen 04/19/2016 04/19/2016 [facility] Emergency [id number] Priti Etelvina 04/20/2016 04/20/2016 [facility] Emergency [id number] Nadim Sikhism 05/25/2016 05/25/2016 [facility] Emergency [id number] Ángela Akuhelder 06/19/2016 06/19/2016 [facility] Emergency [id number] Demetrio De Santiago 06/19/2016 06/20/2016 [facility] Emergency [id number] Ángela Akujobi 07/07/2016 07/08/2016 [facility] Emergency [id number] Kate Beal 07/10/2016 07/10/2016 [facility] Emergency [id number] Priti Etelvina 07/13/2016 07/13/2016 [facility] Emergency [id number] Michelle Lorenzo 09/16/2016 09/17/2016 [facility] Emergency [id number] Nemo Santiago 09/21/2016 09/21/[address] [facility] Emergency [id number] Francisco De Leon 10/24/2016 10/24/2016 [facility] Observation [id number] Yolanda Plata 07/30/2017 07/31/2017 [facility] [id number] OVARIAN CYST NON PHYSICIAN Cancel [facility] Outpatient [id number] OVARIAN CYST ARMINDA LENNOX Cancel [facility] Procedures Procedure Code Date Perfomer Comments Source D&C - Dilatation and curettage [id number] [facility] Cholecystectomy [id number] [facility] Tubal ligation [id number] [facility] Cholecystectomy [id number] [facility] D&C - Dilatation and curettage [id number] [facility] Tubal ligation [id number] [facility] Cholecystectomy [id number] [facility] D&C - Dilatation and curettage [id number] [facility] Tubal ligation [id number] [facility]
--- OUTSIDE RECORDS SUMMARY | 2018-06-25 11:31 | XMS REPORT | CCD ---
Author Author Auto Generated Organization [facility] Address Unknown Phone Unavailable Care Team Providers Care Heat Set Operator Name Role Phone Marzena Hughes CP Sunita Zambrano V CP PCP, None CP Unavailable Silver Poon CP [phone] Catrina Medina CP Unavailable ChartServer, Login CP Unavailable Mustapha Olivier CP Unavailable Sravanthi Velazquez CP Unavailable Lexie Mejía CP Unavailable Anusha Riley CP [phone] Rufus Brown CP Artemio Fuller CP Allergies, Adverse Reactions, Alerts Substance Reaction Status Cipro ?? Active erythromycin ?? Active hydrocodone ?? Active NKDA ?? Canceled Phenergan ?? Active Stadol ?? Active Vital Signs Most recent to oldest [Reference Range]: 1 Height 160.02 cm (08/02/2011 07:09:00) ?? Temperature Oral [96.4-99.1 DegF] 98.4 DegF (08/02/2011 07:11:00) ?? Systolic Blood Pressure [90-140 mmHg] 118 mmHg (08/02/2011 07:11:00) ?? Diastolic Blood Pressure [60-90 mmHg] 70 mmHg (08/02/2011 07:11:00) ?? Respiratory Rate [14-20 BRMIN] 18 BRMIN (08/02/2011 07:11:00) ?? Peripheral Pulse Rate [60-100 bpm] 68 bpm (08/02/2011 07:11:00) ?? Weight 94.091 kg (08/02/2011 07:09:00) ??
--- OUTSIDE RECORDS SUMMARY | 2018-06-25 11:32 | XMS REPORT | CCD ---
Author Author Auto Generated Organization [facility] Address Unknown Phone Unavailable Care Team Providers Care Sales Route Driver Name Role Phone Matt Guajardo CP Allergies, Adverse Reactions, Alerts Substance Reaction Status Cipro Active erythromycin Active hydrocodone Active Phenergan Active Stadol Active Vital Signs Most recent to oldest [Reference Range]: 1 Height 160.02 cm (04/22/2012 07:52:00) Weight 98.182 kg (04/22/2012 07:52:00) Results CHEMISTRY Most recent to oldest [Reference Range]: 1 U Preg [Negative] Negative (04/22/2012 08:19:00)
--- OUTSIDE RECORDS SUMMARY | 2018-06-25 11:32 | XMS REPORT | CCD ---
Author Author Auto Generated Organization [facility] Address Unknown Phone Unavailable Care Team Providers Care Assembly Manager Name Role Phone Titus Richardson CP Allergies, Adverse Reactions, Alerts Substance Reaction Status Cipro Active erythromycin Active hydrocodone Active Phenergan Active Stadol Active Medications Medication Instructions Start Date End Date Status METRONIDazole 500 mg 500 mg, 1 tab, PO, Q12H, 14 tab, 04/16/2012 04/23/2012 Ordered oral tablet Substitution Allowed naproxen 500 mg oral 500 mg, 1 tab, PO, BID, PRN, 30 04/16/2012 Ordered tablet tab, Pain, Substitution Allowed Vital Signs Most recent to oldest [Reference Range]: 1 Height 160.02 cm (04/16/2012 07:27:00) Weight 98.182 kg (04/16/2012 07:27:00) Results URINALYSIS Most recent to oldest [Reference Range]: 1 UA Turbidity [Clear] Slight *ABN* (04/16/2012 08:45:00) UA Color Ltyellow *NA* (04/16/2012 08:45:00) UA pH [5.0-8.0] 6.0 (04/16/2012 08:45:00) UA Spec Grav [<=1.030] 1.014 (04/16/2012 08:45:00) UA Glucose [Negative mg/dL] Negative mg/dL *NA* (04/16/2012 08:45:00) UA Blood [Negative] Moderate *ABN* (04/16/2012 08:45:00) UA Ketones [Negative mg/dL] Negative mg/dL *NA* (04/16/2012 08:45:00) UA Protein [Negative mg/dL] Negative mg/dL (04/16/2012 08:45:00) UA Urobilinogen [0.1-1.0 mg/dL] <=1.0 mg/dL *NA* (04/16/2012 08:45:00) UA Bili [Negative] Negative *NA* (04/16/2012 08:45:00) UA Leuk Est [Negative] Trace *ABN* (04/16/2012 08:45:00) UA Nitrite [Negative] Negative (04/16/2012 08:45:00) UA WBC [0-5 /HPF] 2 /HPF (04/16/2012 08:45:00) UA RBC [0-2 /HPF] 2 /HPF (04/16/2012 08:45:00) UA Bacteria [None Seen /HPF] Occasional /HPF *NA* (04/16/2012 08:45:00) UA Sq Epi [Few /LPF] Few /LPF *NA* (04/16/2012 08:45:00) CHEMISTRY Most recent to oldest [Reference Range]: 1 Sodium Lvl [135-145 mEq/L] 139 mEq/L (04/16/2012 08:45:00) Potassium Lvl [3.5-5.1 mEq/L] 4.0 mEq/L (04/16/2012 08:45:00) Chloride Lvl [95-109 mEq/L] 107 mEq/L (04/16/2012 08:45:00) CO2 [24-32 mEq/L] 24 mEq/L (04/16/2012 08:45:00) AGAP [10.0-20.0 mEq/L] 12.0 mEq/L (04/16/2012 08:45:00) Creatinine Lvl [0.5-1.4 mg/dL] 1.0 mg/dL (04/16/2012 08:45:00) BUN [7-22 mg/dL] 13 mg/dL (04/16/2012 08:45:00) Glucose Lvl [70-99 mg/dL] 112 mg/dL 1 *HI* (04/16/2012 08:45:00) Calcium Lvl [8.5-10.5 mg/dL] 8.4 mg/dL *LOW* (04/16/2012 08:45:00) U Preg [Negative] Negative (04/16/2012 08:45:00) 1Interpretive Data: Adult reference range values reflect the clinical guidelines of the [place] [employer]. HEMATOLOGY Most recent to oldest [Reference Range]: 1 WBC [3.7-10.4 K/CMM] 8.7 K/CMM (04/16/2012 08:45:00) RBC [4.20-5.40 M/CMM] 4.53 M/CMM (04/16/2012 08:45:00) Hgb [12.0-16.0 g/dL] 12.4 g/dL (04/16/2012 08:45:00) Hct [36.0-48.0 %] 37.5 % (04/16/2012 08:45:00) MCV [81.0-99.0 fL] 82.7 fL (04/16/2012 08:45:00) MCH [27.0-31.0 pg] 27.5 pg (04/16/2012 08:45:00) MCHC [32.0-36.0 g/dL] 33.2 g/dL (04/16/2012 08:45:00) RDW [11.5-14.5 %] 14.4 % (04/16/2012 08:45:00) Platelet [133-450 K/CMM] 313 K/CMM (04/16/2012 08:45:00) MPV [7.4-10.4 fL] 8.9 fL (04/16/2012 08:45:00) Segs [45.0-75.0 %] 59.0 % (04/16/2012 08:45:00) Lymphocytes [20.0-40.0 %] 32.6 % (04/16/2012 08:45:00) Monocytes [2.0-12.0 %] 6.4 % (04/16/2012 08:45:00) Eosinophils [0.0-4.0 %] 1.6 % (04/16/2012 08:45:00) Basophils [0.0-1.0 %] 0.4 % (04/16/2012 08:45:00) Segs-Bands # [1.5-8.1 K/CMM] 5.2 K/CMM (04/16/2012 08:45:00) Lymphocytes # [1.0-5.5 K/CMM] 2.9 K/CMM (04/16/2012 08:45:00) Monocytes # [0.0-0.8 K/CMM] 0.6 K/CMM (04/16/2012 08:45:00) Eosinophils # [0.0-0.5 K/CMM] 0.1 K/CMM (04/16/2012 08:45:00) Basophils # [0.0-0.2 K/CMM] 0.0 K/CMM (04/16/2012 08:45:00) IMMUNOLOGY Most recent to oldest [Reference Range]: 1 Source Chlam endocervix *NA* (04/16/2012 08:43:00) Chlam PCR [Negative] Negative (04/16/2012 08:43:00) Source Diogo Endocervix *NA* (04/16/2012 08:43:00) Gonorrhea PCR [Negative] Negative (04/16/2012 08:43:00)
--- OUTSIDE RECORDS SUMMARY | 2018-06-25 11:32 | XMS REPORT | Summary of Care ---
Author Author [facility] Organization [facility] Address Unknown Phone Unavailable Encounter FAUSTO Baltazar(SHERYL) [id number] Date(s): 04/18/15 - 04/19/15 [facility] [address] [place] [address]- Discharge Diagnosis: Bacterial vaginosis Discharge Diagnosis: Urinary tract infection Discharge Diagnosis: Pelvic pain in female Discharge Disposition: Home Attending Physician: Michelle Lorenzo MD Vital Signs 1 2 3 Most recent to oldest [Reference Range]: 157.48 cm (04/18/15 10:51 PM) Height 1 2 3 Most recent to oldest [Reference Range]: 98.3 DegF (04/19/15 1:01 AM) 98.4 DegF (04/18/15 10:51 PM) Temperature Oral [96.4-99.1 DegF] 1 2 3 Most recent to oldest [Reference Range]: 135/78 mmHg (04/19/15 1:01 AM) 143/76 mmHg *HI* (04/18/15 10:51 PM) Blood Pressure [90-140/60-90 mmHg] 1 2 3 Most recent to oldest [Reference Range]: 18 BRMIN (04/19/15 1:01 AM) 19 BRMIN (04/18/15 11:51 PM) 18 BRMIN (04/18/15 10:51 PM) Respiratory Rate [14-20 BRMIN] 1 2 3 Most recent to oldest [Reference Range]: 65 bpm (04/19/15 1:01 AM) 67 bpm (04/18/15 10:51 PM) Peripheral Pulse Rate [60-100 bpm] 1 2 3 Most recent to oldest [Reference Range]: 97.727 kg (04/18/15 10:51 PM) Weight 1 2 3 Most recent to oldest [Reference Range]: 39.41 m2 (04/18/15 10:51 PM) Body Mass Index Problem List Condition Effective Dates Status Health Status Informant Asthma(Confirmed) Active Diabetes(Confirmed) Resolved Diverticulosis(Confi Resolved rmed) Allergies, Adverse Reactions, Alerts Substance Reaction Severity Status Cipro Active ciprofloxacin Active erythromycin Active HYDROcodone Active hydrocodone Active Phenergan Active Stadol Active Medications Bactrim DS 800 mg- 160 mg oral tablet 1 tab, PO, BID, X 7 day, # 14 tab, 0 Refill(s) Start Date: 04/19/15 Stop Date: 04/26/15 Status: Ordered DuoNeb inhalation solution 3 ml, Route: NEB, Drug Form: SOLN, Dosing Weight 97.727, kg, PRN, PRN Respirator y Protocol, Start date: 04/18/15 23:10:00, Duration: 30 day, Stop date: 05/18/15 23:09:00 Notes: (Same as: Duoneb) Start Date: 04/18/15 Stop Date: 04/19/15 Status: Discontinued Flagyl 500 mg oral tablet 500 mg=1 tab, PO, Q12H, X 7 day, # 14 tab, 0 Refill(s) Start Date: 04/19/15 Stop Date: 04/26/15 Status: Ordered Rocephin 250 mg, Route: IM, Drug form: PDR/INJ, ONCE, Dosing Weight 97.727, kg, Priority: STAT, Start date: 04/19/15 0:13:00, Stop date: 04/19/15 0:13:00 Start Date: 04/19/15 Stop Date: 04/19/15 Status: Completed Rocephin 1 gm, Route: IVPB, Drug form: PDR/INJ, ONCE, Dosing Weight 97.727, kg, Priority: STAT, Start date: 04/18/15 23:47:00, Stop date: 04/18/15 23:47:00 Start Date: 04/18/15 Stop Date: 04/19/15 Status: Completed Saline Flush 0.9% 10 mL, Route: IVP, Drug Form: INJ, Dosing Weight 97.727, kg, PRN, PRN Line Flush , Start date: 04/18/15 23:10:00, Duration: 30 day, Stop date: 05/18/15 23:09:00 Notes: (Same as: BD Posiflush) Start Date: 04/18/15 Stop Date: 04/19/15 Status: Discontinued Sodium Chloride 0.9% IV 1,000 mL 1,000 mL, Rate: 125 ml/hr, Infuse over: 8 hr, Route: IV, Dosing Weight 97.727 kg , Total Volume: 1,000, Start date: 04/18/15 23:10:00, Duration: 30 day, Stop hari e: 05/18/15 23:09:00 Start Date: 04/18/15 Stop Date: 04/19/15 Status: Discontinued Tylenol 650 mg, 2 tab, Route: PO, Drug form: TAB, ONCE, Dosing Weight 97.727, kg, Priori ty: STAT, Start date: 04/18/15 23:10:00, Stop date: 04/18/15 23:10:00 Notes: Do not exceed 4 gm/day. (Same as: Tylenol) Start Date: 04/18/15 Stop Date: 04/18/15 Status: Completed Results ELECTROLYTES Most recent to 1 2 oldest [Reference Range]: Sodium Lvl [135-145 137 mEq/L mEq/L] (04/18/15 11:16 PM) Potassium Lvl 3.5 mEq/L [3.5-5.1 mEq/L] (04/18/15 11:16 PM) Chloride Lvl [95-109 105 mEq/L mEq/L] (04/18/15 11:16 PM) CO2 [24-32 mEq/L] 24 mEq/L (04/18/15 11:16 PM) AGAP [10.0-20.0 11.5 mEq/L mEq/L] (04/18/15 11:16 PM) CHEM PANEL Most recent to 1 2 oldest [Reference Range]: Creatinine Lvl 0.8 mg/dL [0.5-1.4 mg/dL] (04/18/15 11:16 PM) eGFR 99 mL/min/1.73m2 1 *NA* (04/18/15 11:16 PM) BUN [7-22 mg/dL] 18 mg/dL (04/18/15 11:16 PM) B/C Ratio [6-25] 22 (04/18/15 11:16 PM) Glucose Lvl [70-99 163 mg/dL mg/dL] *HI* (04/18/15:16 PM) Total Protein 7.2 g/dL [6.4-8.4 g/dL] (04/18/15 PM) Albumin Lvl [3.5-5.0 3.3 g/dL g/dL] *LOW* (04/18/15 PM) Globulin [2.0-4.0 3.9 g/dL g/dL] (04/18/15 PM) A/G Ratio [0.7-1.6] 0.8 (04/18/15 PM) Calcium Lvl 8.0 mg/dL [8.5-10.5 mg/dL] *LOW* (04/18/15 PM) ALT [0-65 unit/L] 33 unit/L (04/18/15 PM) AST [0-37 unit/L] 24 unit/L (04/18/15 PM) Alk Phos [39-136 87 unit/L unit/L] (04/18/15 PM) Bili Total [0.2-1.3 0.3 mg/dL mg/dL] (04/18/15 PM) Amylase Lvl [25-115 21 unit/L unit/L] *LOW* (04/18/15 PM) Lipase Lvl [73-393 201 unit/L unit/L] (04/18/1516 PM) 1Result Comment: The eGFR is calculated using [...] from the National Kidney Disease Education Program ( NKDEP) which additionally recommends that when the eGFR is used in patients with extremes of body mass index for purposes of drug dosing, the eGFR should be mul tiplied by the estimated BMI. URINE CHEM Most recent to 1 2 oldest [Reference Range]: U Preg [Negative] Negative (04/18/15 11:16 PM) URINE AND STOOL Most recent to 1 2 oldest [Reference Range]: UA Turbidity [Clear] Marked *ABN* (04/18/15 11:16 PM) UA Color [Yellow] Yellow *NA* (04/18/15 11:16 PM) UA pH [5.0-8.0] 6.0 (04/18/15 11:16 PM) UA Spec Grav 1.024 [<=1.030] (04/18/15 11:16 PM) UA Glucose [Negative Negative mg/dL mg/dL] *NA* (04/18/15 11:16 PM) UA Blood [Negative] Small *ABN* (04/18/15 11:16 PM) UA Ketones [Negative Negative mg/dL mg/dL] *NA* (04/18/15 11:16 PM) UA Protein [Negative Negative mg/dL mg/dL] (04/18/15 11:16 PM) UA Urobilinogen 2.0 mg/dL [0.1-1.0 mg/dL] *HI* (04/18/15 11:16 PM) UA Bili [Negative] Negative *NA* (04/18/15 11:16 PM) UA Leuk Est Large [Negative] *ABN* (04/18/15 11:16 PM) UA Nitrite Negative [Negative] (04/18/15 11:16 PM) UA WBC [0-5 /HPF] 40 /HPF *HI* (04/18/15 11:16 PM) UA RBC [0-2 /HPF] 23 /HPF *HI* (04/18/15 11:16 PM) UA Bacteria [None Occasional /HPF Seen /HPF] *NA* (04/18/15 11:16 PM) UA Sq Epi [Few /LPF] Many /LPF *ABN* (04/18/15 11:16 PM) UA Hyal Cast [0-2 1 /LPF /LPF] (04/18/15 11:16 PM) UA [place] Yeast [None Occasional /HPF Seen /HPF] *ABN* (04/18/15 11:16 PM) HEMATOLOGY Most recent to 1 2 oldest [Reference Range]: WBC [3.7-10.4 K/CMM] 11.4 K/CMM *HI* (04/18/15 11:16 PM) RBC [4.20-5.40 4.40 M/CMM M/CMM] (04/18/15 11:16 PM) Hgb [12.0-16.0 g/dL] 12.1 g/dL (04/18/15:16 PM) Hct [36.0-48.0 %] 36.7 % (04/18/15:16 PM) MCV [80.0-98.0 fL] 83.4 fL (04/18/15 11:16 PM) MCH [27.0-31.0 pg] 27.5 pg (04/18/15:16 PM) MCHC [32.0-36.0 33.0 g/dL g/dL] (04/18/15:16 PM) RDW [11.5-14.5 %] 13.9 % (04/18/15:16 PM) Platelet [133-450 290 K/CMM K/CMM] (04/18/15 11:16 PM) MPV [7.4-10.4 fL] 9.0 fL (04/18/15 11:16 PM) Segs [45.0-75.0 %] 61.8 % (04/18/15 11:16 PM) Lymphocytes 30.1 % [20.0-40.0 %] (04/18/15:16 PM) Monocytes [2.0-12.0 5.7 % %] (04/18/15:16 PM) Eosinophils [0.0-4.0 1.9 % %] (04/18/15 11:16 PM) Basophils [0.0-1.0 0.5 % %] (04/18/15 11:16 PM) Segs-Bands # 7.0 K/CMM [1.5-8.1 K/CMM] (04/18/15 11:16 PM) Lymphocytes # 3.4 K/CMM [1.0-5.5 K/CMM] (04/18/15 11:16 PM) Monocytes # [0.0-0.8 0.6 K/CMM K/CMM] (04/18/15 11:16 PM) Eosinophils # 0.2 K/CMM [0.0-0.5 K/CMM] (04/18/15 11:16 PM) Basophils # [0.0-0.2 0.1 K/CMM K/CMM] (04/18/15 11:16 PM) MOLECULAR DIAGNOSTIC Most recent to 1 2 oldest [Reference Range]: Source APTIMA Endocervix Endocervix *NA* *NA* (04/19/15 12:25 AM) (04/19/15 12:25 AM) N gonorrhea by Amp Negative Det (APTIMA) *NA* [Negative] (04/19/15 12:25 AM) C trachomatis by Amp Negative Det (APTIMA) *NA* [Negative] (04/19/15 12:25 AM) Immunizations No data available for this section Procedures Procedure Date Related Diagnosis Body Site D&C - Dilatation and curettage Social History Social History Type Response Smoking Status Never smoker; Exposure to Tobacco Smoke None; Cigarette Smoking Last 365 Days No; Reg Smoking Cessation Counseling No Assessment and Plan No data available for this section
--- OUTSIDE RECORDS SUMMARY | 2018-06-25 11:32 | XMS REPORT | Summary of Care ---
Author Organization Unknown Address Unknown Phone Unavailable Encounter FAUSTO Baltazar(SHERYL) [id number] Date(s): 11/04/14 - 11/04/14 [facility] [address] [place] [address]- Discharge Diagnosis: Acute back pain Discharge Diagnosis: Nausea Discharge Diagnosis: Acute pelvic pain, female Discharge Disposition: Home Physician Attending: Titus Richardson MD Vital Signs 1 2 3 Most recent to oldest [Reference Range]: 160.02 cm (11/04/14 8:18 AM) Height 98.5 DegF (11/04/14 1:11 PM) 98.4 DegF (11/04/14 11:19 AM) 98.3 DegF (11/04/14 8:18 AM) Temperature Oral [96.4-99.1 DegF] 106/57 mmHg (11/04/14 1:11 PM) 100/61 mmHg (11/04/14 11:19 AM) 106/71 mmHg (11/04/14 8:18 AM) Blood Pressure [90-140/60-90 mmHg] 18 BRMIN (11/04/14 1:11 PM) 18 BRMIN (11/04/14 11:19 AM) 18 BRMIN (11/04/14 8:18 AM) Respiratory Rate [14-20 BRMIN] 59 bpm *LOW* (11/04/14 1:11 PM) 62 bpm (11/04/14 11:19 AM) 58 bpm *LOW* (11/04/14 8:18 AM) Peripheral Pulse Rate [60-100 bpm] 97.727 kg (11/04/14 8:18 AM) Weight 38.17 m2 (11/04/14 8:18 AM) Body Mass Index Problem List Condition Effective Dates Status Health Status Informant Asthma(Confirmed) Active Diverticulosis(Confi Resolved rmed) Allergies, Adverse Reactions, Alerts Substance Reaction Severity Status Cipro Active ciprofloxacin Active erythromycin Active HYDROcodone Active hydrocodone Active Phenergan Active Stadol Active Medications Dolobid 500 mg oral tablet 500 mg=1 tab, PO, Q8H, # 90 tab, 0 Refill(s) Start Date: 11/04/14 Status: Ordered doxycycline monohydrate 100 mg oral tablet 100 mg=1 tab, PO, Q12H, # 20 tab, 0 Refill(s) Start Date: 11/04/14 Stop Date: 11/14/14 Status: Ordered Flagyl 1,000 mg, Route: PO, ONCE, Dosing Weight 97.727, kg, Priority: STAT, Start date: 11/04/14 11:53:00, Stop date: 11/04/14 11:53:00 Start Date: 11/04/14 Stop Date: 11/04/14 Status: Completed Flagyl 500 mg oral tablet 500 mg=1 tab, PO, Q12H, # 14 tab, 0 Refill(s) Start Date: 11/04/14 Status: Ordered ketorolac 30 mg, Route: IVP, Drug form: INJ, ONCE, Dosing Weight 97.727, kg, Priority: STA T, Start date: 11/04/14 8:48:00, Stop date: 11/04/14 8:48:00 Start Date: 11/04/14 Stop Date: 11/04/14 Status: Completed Rocephin 250 mg, Route: IM, Drug form: PDR/INJ, ONCE, Dosing Weight 97.727, kg, Priority: STAT, Start date: 11/04/14 11:53:00, Stop date: 11/04/14 11:53:00 Start Date: 11/04/14 Stop Date: 11/04/14 Status: Completed Zofran ODT 4 mg oral tablet, disintegrating 4 mg=1 tab, PO, BID, Nausea and Vomiting, Dissolve tab under tongue, # 10 tab, 0 Refill(s) Special Instructions: Dissolve tab under tongue Start Date: 11/04/14 Status: Ordered Results ELECTROLYTES Most recent to 1 oldest [Reference Range]: Sodium Lvl [135-145 138 mEq/L mEq/L] (11/04/14 9:18 AM) Potassium Lvl 4.3 mEq/L [3.5-5.1 mEq/L] (11/04/14 9:18 AM) Chloride Lvl [95-109 107 mEq/L mEq/L] (11/04/14 9:18 AM) CO2 [24-32 mEq/L] 29 mEq/L (11/04/14:18 AM) AGAP [10.0-20.0 6.3 mEq/L mEq/L] *LOW* (11/04/14 AM) CHEM PANEL Most recent to 1 oldest [Reference Range]: Creatinine Lvl 0.7 mg/dL [0.5-1.4 mg/dL] (11/04/14 9:18 AM) eGFR 117 mL/min/1.73m2 1 *NA* (11/04/14:18 AM) BUN [7-22 mg/dL] 13 mg/dL (11/04/14:18 AM) B/C Ratio [6-25] 19 (11/04/14 9:18 AM) Glucose Lvl [70-99 142 mg/dL 2 mg/dL] *HI* (11/04/14:18 AM) Total Protein 6.6 g/dL [6.4-8.4 g/dL] (11/04/14 9:18 AM) Albumin Lvl [3.5-5.0 3.0 g/dL g/dL] *LOW* (11/04/14:18 AM) Globulin [2.0-4.0 3.6 g/dL g/dL] (11/04/14 9:18 AM) A/G Ratio [0.7-1.6] 0.8 (11/04/14:18 AM) Calcium Lvl 8.0 mg/dL [8.5-10.5 mg/dL] *LOW* (11/04/14 9:18 AM) ALT [0-65 unit/L] 45 unit/L (11/04/14 9:18 AM) AST [0-37 unit/L] 21 unit/L (11/04/14 9:18 AM) Alk Phos [39-136 74 unit/L unit/L] (11/04/14 9:18 AM) Bili Total [0.2-1.3 0.3 mg/dL mg/dL] (11/04/14 9:18 AM) Lipase Lvl [73-393 163 unit/L unit/L] (11/04/14 9:18 AM) 1Result Comment: The eGFR is calculated using [...] be mul tiplied by the estimated BMI. 2Interpretive Data: Adult reference range values reflect the clinical guidelines of the [place] [employer]. URINE CHEM Most recent to 1 oldest [Reference Range]: U Preg [Negative] Negative (11/04/14 9:24 AM) URINE AND STOOL Most recent to 1 oldest [Reference Range]: UA Turbidity [Clear] Clear (11/04/14 9:24 AM) UA Color Ltyellow *NA* (11/04/14 9:24 AM) UA pH [5.0-8.0] 5.0 (11/04/14 9:24 AM) UA Spec Grav 1.014 [<=1.030] (11/04/14 9:24 AM) UA Glucose [Negative Negative mg/dL mg/dL] *NA* (11/04/14 9:24 AM) UA Blood [Negative] Small *ABN* (11/04/14 9:24 AM) UA Ketones [Negative Negative mg/dL mg/dL] *NA* (11/04/14 9:24 AM) UA Protein [Negative Negative mg/dL mg/dL] (11/04/14 9:24 AM) UA Urobilinogen <=1.0 mg/dL [0.1-1.0 mg/dL] *NA* (11/04/14 9:24 AM) UA Bili [Negative] Negative *NA* (11/04/14 9:24 AM) UA Leuk Est Trace [Negative] *ABN* (11/04/14 9:24 AM) UA Nitrite Negative [Negative] (11/04/14 9:24 AM) UA WBC [0-5 /HPF] 4 /HPF (11/04/14 9:24 AM) UA RBC [0-2 /HPF] 1 /HPF (11/04/14 9:24 AM) UA Sq Epi [Few /LPF] Few /LPF *NA* (11/04/14:24 AM) HEMATOLOGY Most recent to 1 oldest [Reference Range]: WBC [3.7-10.4 K/CMM] 9.3 K/CMM (11/04/14 9:18 AM) RBC [4.20-5.40 4.46 M/CMM M/CMM] (11/04/14:18 AM) Hgb [12.0-16.0 g/dL] 12.3 g/dL (11/04/14:18 AM) Hct [36.0-48.0 %] 36.9 % (11/04/14:18 AM) MCV [80.0-98.0 fL] 82.7 fL (11/04/14:18 AM) MCH [27.0-31.0 pg] 27.5 pg (11/04/14:18 AM) MCHC [32.0-36.0 33.2 g/dL g/dL] (11/04/14:18 AM) RDW [11.5-14.5 %] 14.0 % (11/04/14:18 AM) Platelet [133-450 318 K/CMM K/CMM] (11/04/14 9:18 AM) MPV [7.4-10.4 fL] 8.8 fL (11/04/14 9:18 AM) Segs [45.0-75.0 %] 59.7 % (11/04/14:18 AM) Lymphocytes 32.1 % [20.0-40.0 %] (11/04/14 9:18 AM) Monocytes [2.0-12.0 5.5 % %] (11/04/14:18 AM) Eosinophils [0.0-4.0 2.0 % %] (2/25/15 9:18 AM) Basophils [0.0-1.0 0.7 % %] (11/04/14 9:18 AM) Segs-Bands # 5.5 K/CMM [1.5-8.1 K/CMM] (11/04/14 9:18 AM) Lymphocytes # 3.0 K/CMM [1.0-5.5 K/CMM] (11/04/14 9:18 AM) Monocytes # [0.0-0.8 0.5 K/CMM K/CMM] (11/04/14 9:18 AM) Eosinophils # 0.2 K/CMM [0.0-0.5 K/CMM] (11/04/14 9:18 AM) Basophils # [0.0-0.2 0.1 K/CMM K/CMM] (11/04/14 9:18 AM) Immunizations No data available for this section Procedures No data available for this section Social History Social History Type Response Smoking Status Never smoker; Exposure to Tobacco Smoke None; Cigarette Smoking Last 365 Days No; Reg Smoking Cessation Counseling No Assessment and Plan No data available for this section
--- OUTSIDE RECORDS SUMMARY | 2018-06-25 11:32 | XMS REPORT | Summary of Care ---
Author Organization Unknown Address Unknown Phone Unavailable Encounter FAUSTO Baltazar(SHERYL) [id number] Date(s): 10/30/14 - 10/30/14 [facility] [address] [place] [address]- [phone] Discharge Diagnosis: UTI (lower urinary tract infection) Discharge Diagnosis: Diarrhea Discharge Diagnosis: Abdominal pain Discharge Disposition: Home Physician Attending: Titus Richardson MD Vital Signs Most recent to 1 2 oldest [Reference Range]: Height 160.02 cm (10/30/14 7:52 AM) Temperature Oral 98.3 DegF 99.0 DegF [96.4-99.1 DegF] (10/30/14 10:24 AM) (10/30/14 7:52 AM) Blood Pressure 102/63 mmHg 111/76 mmHg [90-140/60-90 mmHg] (10/30/14 10:24 AM) (10/30/14 7:52 AM) Respiratory Rate 18 BRMIN 18 BRMIN [14-20 BRMIN] (10/30/14 10:24 AM) (10/30/14 7:52 AM) Peripheral Pulse 66 bpm 84 bpm Rate [60-100 bpm] (10/30/14 10:24 AM) (10/30/14 7:52 AM) Weight 97.727 kg (10/30/14 7:52 AM) Body Mass Index 38.17 m2 (10/30/14 7:52 AM) Problem List Condition Effective Dates Status Health Status Informant Asthma(Confirmed) Active Diverticulosis(Confi Resolved rmed) Allergies, Adverse Reactions, Alerts Substance Reaction Severity Status Cipro Active ciprofloxacin Active erythromycin Active HYDROcodone Active hydrocodone Active Phenergan Active Stadol Active Medications Bactrim DS oral tablet 1 tab, PO, BID, # 28 tab, 0 Refill(s) Start Date: 10/30/14 Stop Date: 11/13/14 Status: Ordered morphine Sulfate 4 mg, Route: IVP, ONCE, Dosing Weight 97.727, kg, Priority: STAT, Start date: 8:08:00, Stop date: 10/30/14 8:08:00 Start Date: 10/30/14 Stop Date: 10/30/14 Status: Discontinued ondansetron 4 mg, Route: IVP, ONCE, Dosing Weight 97.727, kg, Priority: STAT, Start date: 8:08:00, Stop date: 10/30/14 8:08:00 Start Date: 10/30/14 Stop Date: 10/30/14 Status: Completed ondansetron 4 mg oral tablet, disintegrating 4 mg=1 tab, PO, TID, Nausea / Vomiting, Dissolve tab under tongue, # 10 tab, 0 R efill(s) Special Instructions: Dissolve tab under tongue Start Date: 10/30/14 Stop Date: 11/02/14 Status: Ordered Saline Flush 0.9% 10 mL, Route: IVP, Drug Form: INJ, Dosing Weight 97.727, kg, PRN, PRN Line Flush , Start date: 10/30/14 8:08:00, Duration: 30 day, Stop date: 11/29/14 9:07:00 Notes: (Same as: BD Posiflush) Start Date: 10/30/14 Stop Date: 10/30/14 Status: Discontinued Sodium Chloride 0.9% (Bolus) IV 1,000 mL, Infuse Over: 1 hr, Route: IV, ONCE, Priority: STAT, Dosing Weight 97.7 27 kg, Start date: 10/30/14 8:08:00, Duration: 1 doses or times, Stop date: 10/12 8:08:00 Start Date: 10/30/14 Stop Date: 10/30/14 Status: Completed Tylenol 975 mg, Route: PO, Drug form: TAB, ONCE, Dosing Weight 97.727, kg, Priority: STA T, Start date: 10/30/14 8:49:00, Stop date: 10/30/14 8:49:00 Start Date: 10/30/14 Stop Date: 10/30/14 Status: Completed Results ELECTROLYTES Most recent to 1 oldest [Reference Range]: Sodium Lvl [135-145 136 mEq/L mEq/L] (10/30/14:17 AM) Potassium Lvl 3.8 mEq/L [3.5-5.1 mEq/L] (10/30/14: AM) Chloride Lvl [95-109 107 mEq/L mEq/L] (10/30/14: AM) CO2 [24-32 mEq/L] 23 mEq/L *LOW* (10/30/14 AM) AGAP [10.0-20.0 9.8 mEq/L mEq/L] *LOW* (10/30/14 AM) CHEM PANEL Most recent to 1 oldest [Reference Range]: Creatinine Lvl 0.7 mg/dL [0.5-1.4 mg/dL] (10/30/14: AM) eGFR 117 mL/min/1.73m2 1 *NA* (10/30/14: AM) BUN [7-22 mg/dL] 14 mg/dL (10/30/14: AM) B/C Ratio [6-25] 20 (10/30/14: AM) Glucose Lvl [70-99 129 mg/dL 2 mg/dL] *HI* (10/30/14: AM) Total Protein 7.4 g/dL [6.4-8.4 g/dL] (10/30/14: AM) Albumin Lvl [3.5-5.0 3.4 g/dL g/dL] *LOW* (10/30/14: AM) Globulin [2.0-4.0 4.0 g/dL g/dL] (10/30/14: AM) A/G Ratio [0.7-1.6] 0.8 (10/30/14: AM) Calcium Lvl 8.3 mg/dL [8.5-10.5 mg/dL] *LOW* (10/30/14: AM) ALT [0-65 unit/L] 31 unit/L (10/30/14 8:17 AM) AST [0-37 unit/L] 22 unit/L (10/30/14: AM) Alk Phos [39-136 85 unit/L unit/L] (10/30/14 8:17 AM) Bili Total [0.2-1.3 0.3 mg/dL mg/dL] (10/30/14 8:17 AM) 1Result Comment: The eGFR is calculated [...] values reflect the clinical guidelines of the [place] [employer]. URINE CHEM Most recent to 1 oldest [Reference Range]: U Preg [Negative] Negative (10/30/14 8:37 AM) URINE AND STOOL Most recent to 1 oldest [Reference Range]: UA Turbidity [Clear] Marked *ABN* (10/30/14 8:37 AM) UA Color [Yellow] Yellow *NA* (10/30/14 8:37 AM) UA pH [5.0-8.0] 5.0 (10/30/14 8:37 AM) UA Spec Grav 1.029 [<=1.030] (10/30/14 8:37 AM) UA Glucose [Negative Negative mg/dL mg/dL] *NA* (10/30/14 8:37 AM) UA Blood [Negative] Moderate *ABN* (10/30/14 8:37 AM) UA Ketones [Negative Negative mg/dL mg/dL] *NA* (10/30/14 8:37 AM) UA Protein [Negative Negative mg/dL mg/dL] (10/30/14 8:37 AM) UA Urobilinogen <=1.0 mg/dL [0.1-1.0 mg/dL] *NA* (10/30/14 8:37 AM) UA Bili [Negative] Negative *NA* (10/30/14 8:37 AM) UA Leuk Est Moderate [Negative] *ABN* (10/30/14 8:37 AM) UA Nitrite Negative [Negative] (10/30/14 8:37 AM) UA WBC [0-5 /HPF] 21 /HPF *HI* (10/30/14 8:37 AM) UA RBC [0-2 /HPF] 4 /HPF *HI* (10/30/14 8:37 AM) UA Bacteria [None Occasional /HPF Seen /HPF] *NA* (10/30/14 8:37 AM) UA Sq Epi [Few /LPF] Many /LPF *ABN* (10/30/14 8:37 AM) UA Mucus [None Seen Few /LPF /LPF] *NA* (10/30/14 8:37 AM) HEMATOLOGY Most recent to 1 oldest [Reference Range]: WBC [3.7-10.4 K/CMM] 8.7 K/CMM (10/30/14 8:17 AM) RBC [4.20-5.40 4.70 M/CMM M/CMM] (10/30/14 8:17 AM) Hgb [12.0-16.0 g/dL] 12.8 g/dL (10/30/14 8:17 AM) Hct [36.0-48.0 %] 38.8 % (10/30/14 8:17 AM) MCV [80.0-98.0 fL] 82.6 fL (10/30/14 8:17 AM) MCH [27.0-31.0 pg] 27.2 pg (10/30/14 8:17 AM) MCHC [32.0-36.0 32.9 g/dL g/dL] (10/30/14 8:17 AM) RDW [11.5-14.5 %] 14.3 % (10/30/14 8:17 AM) Platelet [133-450 334 K/CMM K/CMM] (10/30/14 8:17 AM) MPV [7.4-10.4 fL] 8.7 fL (10/30/14 8:17 AM) Segs [45.0-75.0 %] 68.8 % (10/30/14 8:17 AM) Lymphocytes 20.5 % [20.0-40.0 %] (10/30/14 8:17 AM) Monocytes [2.0-12.0 7.1 % %] (10/30/14 8:17 AM) Eosinophils [0.0-4.0 2.8 % %] (10/30/14 8:17 AM) Basophils [0.0-1.0 0.8 % %] (10/30/14 8:17 AM) Segs-Bands # 6.0 K/CMM [1.5-8.1 K/CMM] (10/30/14 8:17 AM) Lymphocytes # 1.8 K/CMM [1.0-5.5 K/CMM] (10/30/14 8:17 AM) Monocytes # [0.0-0.8 0.6 K/CMM K/CMM] (10/30/14 8:17 AM) Eosinophils # 0.2 K/CMM [0.0-0.5 K/CMM] (10/30/14 8:17 AM) Basophils # [0.0-0.2 0.1 K/CMM K/CMM] (10/30/14 8:17 AM) Immunizations No data available for this section Procedures Procedure Date Related Diagnosis Body Site D&C - Dilatation and curettage Social History Social History Type Response Smoking Status Never smoker; Exposure to Tobacco Smoke None; Cigarette Smoking Last 365 Days No; Reg Smoking Cessation Counseling No Assessment and Plan No data available for this section
--- OUTSIDE RECORDS SUMMARY | 2018-06-25 11:32 | XMS REPORT | CCD ---
Author Author Auto Generated Organization [facility] Address Unknown Phone Unavailable Care Team Providers Care Route Driver Salesperson Name Role Phone Bethany Cadena CP Allergies, Adverse Reactions, Alerts Substance Reaction Status Cipro Active erythromycin Active hydrocodone Active Phenergan Active Stadol Active Medications Medication Instructions Start Date End Date Status Protonix 40 mg oral 40 mg, 1 tab, PO, Daily, 30 tab, 07/09/2012 Ordered enteric coated Substitution Allowed, ECTAB tablet Ultram 50 mg oral 50 mg, 1 tab, PO, Q4H, PRN, 20 tab, 07/09/2012 Ordered tablet pain, Substitution Allowed Sodium Chloride 0.9% 1,000 mL, Rate: 1,000 ml/hr, Infuse 07/08/2012 07/08/2012 Completed (Bolus) IV 1000 mL over: 1 hr, Route: IV, Dosing Weight 98.636 kg, Total Volume: 1,000, Bolus Dose, Priority: STAT, Start date: 07/08/12 22:50:00, Duration: 1 doses or times, Stop date: 07/08/12 23:49:00 morphine Sulfate 4 mg, Route: IVP, ONCE, Dosing 07/08/2012 07/08/2012 Completed Weight 98.636, kg, Priority: STAT, Start date: 07/08/12 22:50:00, Stop date: 07/08/12 22:50:00 ondansetron 4 mg 4 mg, Route: PO, Drug form: TABDIS, 07/08/2012 07/08/2012 Completed oral tablet, ONCE, Dosing Weight 98.636, kg, disintegrating Priority: STAT, Start date: 07/08/12 23:26:00, Stop date: 07/08/12 23:26:00 Vital Signs Most recent to oldest [Reference Range]: 1 Height 157.48 cm (07/08/2012 21:42:00) Weight 98.636 kg (07/08/2012 21:42:00) Results URINALYSIS Most recent to oldest [Reference Range]: 1 UA Turbidity [Clear] Clear (07/08/2012 22:53:00) UA Color [Yellow] Yellow *NA* (07/08/2012 22:53:00) UA pH [5.0-8.0] 7.0 (07/08/2012 22:53:00) UA Spec Grav [<=1.030] 1.025 (07/08/2012 22:53:00) UA Glucose [Negative] Negative (07/08/2012 22:53:00) UA Blood [Negative] Small *ABN* (07/08/2012 22:53:00) UA Ketones [Negative] Negative *NA* (07/08/2012 22:53:00) UA Protein [Negative] Negative (07/08/2012 22:53:00) UA Urobilinogen [0.1-1.0 EU/dL] 0.2 EU/dL (07/08/2012 22:53:00) UA Bili [Negative] Negative *NA* (07/08/2012 22:53:00) UA Leuk Est [Negative] Negative (07/08/2012 22:53:00) UA Nitrite [Negative] Negative (07/08/2012 22:53:00) UA WBC [0-5 /HPF] 8 /HPF *HI* (07/08/2012 22:53:00) UA RBC [0-2 /HPF] 2 /HPF (07/08/2012 22:53:00) UA Bacteria [None Seen /HPF] Few /HPF *NA* (07/08/2012 22:53:00) UA Sq Epi [Few /LPF] Many /LPF *ABN* (07/08/2012 22:53:00) UA Mucus [None Seen /LPF] Few /LPF *NA* (07/08/2012 22:53:00) CHEMISTRY Most recent to oldest [Reference Range]: 1 Sodium Lvl [135-145 mEq/L] 141 mEq/L (07/08/2012 22:57:00) Potassium Lvl [3.5-5.1 mEq/L] 3.9 mEq/L (07/08/2012 22:57:00) Chloride Lvl [95-109 mEq/L] 108 mEq/L (07/08/2012 22:57:00) CO2 [24-32 mEq/L] 27 mEq/L (07/08/2012 22:57:00) AGAP [10.0-20.0 mEq/L] 9.9 mEq/L *LOW* (07/08/2012 22:57:00) Creatinine Lvl [0.5-1.4 mg/dL] 0.9 mg/dL (07/08/2012 22:57:00) eGFR 88 mL/min/1.73m2 1 *NA* (07/08/2012 22:57:00) BUN [7-22 mg/dL] 12 mg/dL (07/08/2012 22:57:00) B/C Ratio [6-25] 13 (07/08/2012 22:57:00) Glucose Lvl [70-99 mg/dL] 105 mg/dL 2 *HI* (07/08/2012 22:57:00) Total Protein [6.4-8.4 g/dL] 7.1 g/dL (07/08/2012 22:57:00) Albumin Lvl [3.5-5.0 g/dL] 3.3 g/dL *LOW* (07/08/2012 22:57:00) Globulin [2.0-4.0 g/dL] 3.8 g/dL (07/08/2012 22:57:00) A/G Ratio [0.7-1.6] 0.9 (07/08/2012 22:57:00) Calcium Lvl [8.5-10.5 mg/dL] 8.3 mg/dL *LOW* (07/08/2012 22:57:00) ALT [0-65 unit/L] 29 unit/L (07/08/2012 22:57:00) AST [0-37 unit/L] 19 unit/L (07/08/2012 22:57:00) Alk Phos [39-136 unit/L] 82 unit/L (07/08/2012 22:57:00) Bili Total [0.2-1.3 mg/dL] 0.2 mg/dL (07/08/2012 22:57:00) Lipase Lvl [73-393 unit/L] 167 unit/L (07/08/2012 22:57:00) U Preg [Negative] Negative (07/08/2012 22:53:00) 1Result Comment: The eGFR is calculated using [...] values reflect the clinical guidelines of the [place] [employer]. HEMATOLOGY Most recent to oldest [Reference Range]: 1 WBC [3.7-10.4 K/CMM] 9.8 K/CMM (07/08/2012 22:57:00) RBC [4.20-5.40 M/CMM] 4.22 M/CMM (07/08/2012 22:57:00) Hgb [12.0-16.0 g/dL] 11.8 g/dL *LOW* (07/08/2012 22:57:00) Hct [36.0-48.0 %] 35.5 % *LOW* (07/08/2012 22:57:00) MCV [81.0-99.0 fL] 84.0 fL (07/08/2012 22:57:00) MCH [27.0-31.0 pg] 27.9 pg (07/08/2012 22:57:00) MCHC [32.0-36.0 g/dL] 33.2 g/dL (07/08/2012 22:57:00) RDW [11.5-14.5 %] 14.5 % (07/08/2012 22:57:00) Platelet [133-450 K/CMM] 305 K/CMM (07/08/2012 22:57:00) MPV [7.4-10.4 fL] 9.0 fL (07/08/2012 22:57:00) Segs [45.0-75.0 %] 56.4 % (07/08/2012 22:57:00) Lymphocytes [20.0-40.0 %] 34.9 % (07/08/2012 22:57:00) Monocytes [2.0-12.0 %] 6.6 % (07/08/2012 22:57:00) Eosinophils [0.0-4.0 %] 1.7 % (07/08/2012 22:57:00) Basophils [0.0-1.0 %] 0.4 % (07/08/2012 22:57:00) Segs-Bands # [1.5-8.1 K/CMM] 5.5 K/CMM (07/08/2012 22:57:00) Lymphocytes # [1.0-5.5 K/CMM] 3.4 K/CMM (07/08/2012 22:57:00) Monocytes # [0.0-0.8 K/CMM] 0.6 K/CMM (07/08/2012 22:57:00) Eosinophils # [0.0-0.5 K/CMM] 0.2 K/CMM (07/08/2012 22:57:00) Basophils # [0.0-0.2 K/CMM] 0.0 K/CMM (07/08/2012 22:57:00)
--- OUTSIDE RECORDS SUMMARY | 2018-06-25 11:32 | XMS REPORT | Summary of Care ---
Author Author [facility] Organization [facility] Address Unknown Phone Unavailable Encounter FAUSTO Baltazar(SHERYL) [id number] Date(s): 05/14/15 - 05/14/15 [facility] [address] [place] [address]- Discharge Diagnosis: Pharyngitis, acute Discharge Disposition: Non-Emergent Attending Physician: Axel Ruffin MD Vital Signs Most recent to 1 oldest [Reference Range]: Height 157.48 cm (05/14/15 8:24 AM) Most recent to 1 oldest [Reference Range]: Temperature Oral 98.5 DegF [96.4-99.1 DegF] (05/14/15 8:24 AM) Most recent to 1 oldest [Reference Range]: Blood Pressure 119/79 mmHg [90-140/60-90 mmHg] (05/14/15 8:24 AM) Most recent to 1 oldest [Reference Range]: Respiratory Rate 16 BRMIN [14-20 BRMIN] (05/14/15 8:24 AM) Most recent to 1 oldest [Reference Range]: Peripheral Pulse 70 bpm Rate [60-100 bpm] (05/14/15 8:24 AM) Most recent to 1 oldest [Reference Range]: Weight 97.727 kg (05/14/15 8:24 AM) Most recent to 1 oldest [Reference Range]: Body Mass Index 39.41 m2 (05/14/15 8:24 AM) Problem List Condition Effective Dates Status Health Status Informant Asthma(Confirmed) Active Diabetes(Confirmed) Resolved Diverticulosis(Confi Resolved rmed) Allergies, Adverse Reactions, Alerts Substance Reaction Severity Status Cipro Active ciprofloxacin Active erythromycin Active HYDROcodone Active hydrocodone Active Phenergan Active Stadol Active Medications No data available for this section Results No data available for this section Immunizations No data available for this section Procedures Procedure Date Related Diagnosis Body Site D&C - Dilatation and curettage Social History Social History Type Response Smoking Status Never smoker; Exposure to Tobacco Smoke None; Cigarette Smoking Last 365 Days No; Reg Smoking Cessation Counseling No Assessment and Plan No data available for this section
--- OUTSIDE RECORDS SUMMARY | 2018-06-25 11:32 | XMS REPORT | Summary of Care ---
Author Organization Unknown Address Unknown Phone Unavailable Encounter FAUSTO Baltazar(SHERYL) [id number] Date(s): 06/10/14 - 06/10/14 [facility] [address] [place], [place] [id number] [place] [address] Discharge Diagnosis: Asthma exacerbation Discharge Diagnosis: Upper respiratory infection Discharge Disposition: Home Physician Attending: Bethany Zaragoza MD Reason for Visit DIFFICULTY BREATHING Vital Signs 1 2 3 Most recent to oldest [Reference Range]: 98.0 DegF (06/10/14 6:29 AM) 98.1 DegF (06/10/14 3:51 AM) Temperature Oral [96.4-99.1 DegF] 122 mmHg (06/10/14 6:29 AM) 124 mmHg (06/10/14 3:51 AM) Systolic Blood Pressure [90-140 mmHg] 77 mmHg (06/10/14 6:29 AM) 80 mmHg (06/10/14 3:51 AM) Diastolic Blood Pressure [60-90 mmHg] 18 BRMIN (06/10/14 6:29 AM) 20 BRMIN (06/10/14 4:08 AM) 20 BRMIN (06/10/14 3:51 AM) Respiratory Rate [14-20 BRMIN] 88 bpm (06/10/14 6:29 AM) 91 bpm (06/10/14 3:51 AM) Peripheral Pulse Rate [60-100 bpm] 97.727 kg (06/10/14 3:51 AM) Weight Problem List Condition Effective Dates Status Health Status Informant Asthma(Confirmed) Active Diverticulosis(Confi Resolved rmed) Allergies, Adverse Reactions, Alerts Substance Reaction Severity Status Cipro Active ciprofloxacin Active erythromycin Active HYDROcodone Active hydrocodone Active Phenergan Active Stadol Active Medications albuterol 0.083% inhalation solution 2.49 mg=3 mL, INHALATION, Q6H, # 120 ea, 0 Refill(s) Start Date: 06/10/14 Status: Ordered Atrovent HFA 17 mcg/inh inhalation aerosol 1 puff, INHALATION, QID, wheezing, # 1 ea, 0 Refill(s) Start Date: 06/10/14 Status: Ordered DuoNeb inhalation solution 3 mL, INHALATION, TID, Wheezing, # 90 mL, 0 Refill(s) Start Date: 06/10/14 Status: Ordered DuoNeb inhalation solution 3 mL, Route: INHALATION, Dosing Weight 97.727, kg, ONCE, STAT, Start date: 06/10 4:02:00, Stop date: 06/10/14 4:02:00 Start Date: 06/10/14 Stop Date: 06/10/14 Status: Completed DuoNeb inhalation solution 3 mL, Route: INHALATION, Dosing Weight 97.727, kg, ONCE, STAT, Start date: 06/10 4:02:00, Stop date: 06/10/14 4:02:00 Start Date: 06/10/14 Stop Date: 06/10/14 Status: Completed predniSONE 60 mg, 3 tab, Route: PO, Drug form: TAB, ONCE, Dosing Weight 97.727, kg, Priorit y: STAT, Start date: 06/10/14 4:19:00, Stop date: 06/10/14 4:19:00 Notes: Take with food. Start Date: 06/10/14 Stop Date: 06/10/14 Status: Completed predniSONE 20 mg oral tablet 60 mg=3 tab, PO, Daily, Take 3 tablets for 60 mg dose, # 9 tab, 0 Refill(s) Special Instructions: Take 3 tablets for 60 mg dose Start Date: 06/10/14 Stop Date: 06/13/14 Status: Ordered Medications Administered During Your Visit No data available for this section Immunizations No data available for this section
--- OUTSIDE RECORDS SUMMARY | 2018-06-25 11:32 | XMS REPORT | Summary of Care ---
Author Author [facility] Organization [facility] Address Unknown Phone Unavailable Encounter FAUSTO Baltazar(SHERYL) [id number] Date(s): 07/30/17 - 07/30/17 [facility] [id number] [place] [address]- Discharge Diagnosis: Acute chest pain Discharge Diagnosis: Heart palpitations Discharge Disposition: Home or Self Care Attending Physician: Yolanda Plata MD Admitting Physician: Yolanda Plata MD Vital Signs 1 2 3 Most recent to oldest [Reference Range]: 157.48 cm (07/30/17 8:49 AM) Height 98.7 DegF (07/30/17 8:25 PM) 98.7 DegF (07/30/17 3:00 PM) 98 DegF (07/30/17 8:49 AM) Temperature Oral [96.4-99.1 DegF] 99/62 mmHg (07/30/17 8:25 PM) 102/64 mmHg (07/30/17 3:00 PM) 110/95 mmHg (07/30/17 11:51 AM) Blood Pressure [90-140/60-90 mmHg] 16 BRMIN (07/30/17 8:25 PM) 16 BRMIN (07/30/17 3:00 PM) 16 BRMIN (07/30/17 11:51 AM) Respiratory Rate [14-20 BRMIN] 72 bpm (07/30/17 8:25 PM) 78 bpm (07/30/17 3:00 PM) 91 bpm (07/30/17 11:51 AM) Peripheral Pulse Rate [60-100 bpm] 90 kg (07/30/17 8:49 AM) Weight 36.29 m2 (07/30/17 8:49 AM) Body Mass Index Problem List Condition Effective Dates Status Health Status Informant Asthma(Confirmed) Active Bronchitis(Confirmed Resolved ) Diabetes(Confirmed) Resolved Diverticulosis(Confi Resolved rmed) Ectopic Resolved (Confirmed) Depression(Confirmed Resolved ) Allergies, Adverse Reactions, Alerts Substance Reaction Severity Status erythromycin Active predniSONE Active aspirin Active nitrous oxide Active Cipro Active Stadol Active Phenergan Active HYDROcodone Active Medications aspirin 325 mg tablet, enteric coated 325 mg, 1 tab, Route: PO, Drug form: ECTAB, Daily, Dosing Weight 90, kg, Start d ate: 07/31/17 9:00:00 [employer], Duration: 30 day, Stop date: 08/30/17 8:59:00 [employer] Notes: (Do Not Crush) Do not crush or chew. Start Date: 07/31/17 Stop Date: 07/30/17 Status: Canceled BD Normal Saline Flush 25 mL, Route: IV, Drug Form: INJ, PRN, PRN Line Flush, Start date: 07/30/17 9:18 :00 [employer], Duration: 30 day, Stop date: 08/29/17 9:17:00 [employer] Notes: (Same as: BD Posiflush) Start Date: 07/30/17 Stop Date: 07/30/17 Status: Discontinued Dextrose 50% Syringe 25 gm, 50 mL, Route: IVP, Drug Form: INJ, Dosing Weight 90, kg, PRN, PRN Blood G lucose Results, Start date: 07/30/17 12:09:00 [employer], Duration: 30 day, Stop date: 08/29/17 12:08:00 [employer] Start Date: 07/30/17 Stop Date: 07/30/17 Status: Discontinued Dextrose 50% Syringe 12.5 gm, 25 mL, Route: IVP, Drug Form: INJ, Dosing Weight 90, kg, PRN, PRN Blood Glucose Results, Start date: 07/30/17 12:09:00 [employer], Duration: 30 day, Stop date: 08/29/17 12:08:00 [employer] Start Date: 07/30/17 Stop Date: 07/30/17 Status: Discontinued ferrous sulfate 325 mg, 1 tab, Route: PO, Drug form: ECTAB, TID, Dosing Weight 90, kg, Start hari e: 07/31/17 9:00:00 [employer], Duration: 30 day, Stop date: 08/30/17 8:59:00 [employer] Notes: Give with food. "Do Not Crush" Start Date: 07/31/17 Stop Date: 07/30/17 Status: Canceled glucagon 1 mg, Route: IM, Drug form: PDR/INJ, PRN, Dosing Weight 90, kg, PRN Blood Glucos e Results, Start date: 07/30/17 12:09:00 [employer], Duration: 30 day, Stop date: 08/29 12:08:00 [employer] Start Date: 07/30/17 Stop Date: 07/30/17 Status: Discontinued insulin lispro 4 unit, 0.04 mL, Route: SUB-Q, Drug form: SOLN, Bedtime, Dosing Weight 90, kg, P RN Blood Glucose Results, Start date: 07/30/17 12:09:00 [employer], Duration: 30 day, S top date: 08/29/17 12:08:00 [employer] Notes: Roll in palms of hands gently; Do not shake `vigorously. (Same as: Alexa og )"Single Patient Use Only "WASTE: F/P - Black; E - Municipal Trash Bin Stabl e for 28 days at room temperature.Expires in days from Date Start Date: 07/30/17 Stop Date: 07/30/17 Status: Discontinued insulin lispro 3 unit, 0.03 mL, Route: SUB-Q, Drug form: SOLN, Bedtime, Dosing Weight 90, kg, P RN Blood Glucose Results, Start date: 07/30/17 12:09:00 [employer], Duration: 30 day, S top date: 08/29/17 12:08:00 [employer] Notes: Roll in palms of hands gently; Do not shake `vigorously. (Same as: Humal og )"Single Patient Use Only "WASTE: F/P - Black; E - Municipal Trash Bin Stabl e for 28 days at room temperature.Expires in days from Date Start Date: 07/30/17 Stop Date: 07/30/17 Status: Discontinued insulin lispro 2 unit, 0.02 mL, Route: SUB-Q, Drug form: SOLN, Bedtime, Dosing Weight 90, kg, P RN Blood Glucose Results, Start date: 07/30/17 12:09:00 [employer], Duration: 30 day, S top date: 08/29/17 12:08:00 [employer] Notes: Roll in palms of hands gently; Do not shake `vigorously. (Same as: Humal og )"Single Patient Use Only "WASTE: F/P - Black; E - Municipal Trash Bin Stabl e for 28 days at room temperature.Expires in days from Date Start Date: 07/30/17 Stop Date: 07/30/17 Status: Discontinued insulin lispro 1 unit, 0.01 mL, Route: SUB-Q, Drug form: SOLN, Bedtime, Dosing Weight 90, kg, P RN Blood Glucose Results, Start date: 07/30/17 12:09:00 [employer], Duration: 30 day, S top date: 08/29/17 12:08:00 [employer] Notes: Roll in palms of hands gently; Do not shake `vigorously. (Same as: Humal og )"Single Patient Use Only "WASTE: F/P - Black; E - Municipal Trash Bin Stabl e for 28 days at room temperature.Expires in days from Date Start Date: 07/30/17 Stop Date: 07/30/17 Status: Discontinued insulin lispro 10 unit, 0.1 mL, Route: SUB-Q, Drug form: SOLN, TID-Before Meals, Dosing Weight 90, kg, PRN Blood Glucose Results, Start date: 07/30/17 12:09:00 [employer], Duration: 30 day, Stop date: 08/29/17 12:08:00 [employer] Notes: Roll in palms of hands gently; Do not shake `vigorously. (Same as: Humal og )"Single Patient Use Only "WASTE: F/P - Black; E - Municipal Trash Bin Stabl e for 28 days at room temperature.Expires in days from Date Start Date: 07/30/17 Stop Date: 07/30/17 Status: Discontinued insulin lispro 8 unit, 0.08 mL, Route: SUB-Q, Drug form: SOLN, TID-Before Meals, Dosing Weight 90, kg, PRN Blood Glucose Results, Start date: 07/30/17 12:09:00 [employer], Duration: 30 day, Stop date: 08/29/17 12:08:00 [employer] Notes: Roll in palms of hands gently; Do not shake `vigorously. (Same as: Humal og )"Single Patient Use Only "WASTE: F/P - Black; E - Municipal Trash Bin Stabl e for 28 days at room temperature.Expires in days from Date Start Date: 07/30/17 Stop Date: 07/30/17 Status: Discontinued insulin lispro 6 unit, 0.06 mL, Route: SUB-Q, Drug form: SOLN, TID-Before Meals, Dosing Weight 90, kg, PRN Blood Glucose Results, Start date: 07/30/17 12:09:00 [employer], Duration: 30 day, Stop date: 08/29/17 12:08:00 [employer] Notes: Roll in palms of hands gently; Do not shake `vigorously. (Same as: Humal og )"Single Patient Use Only "WASTE: F/P - Black; E - Municipal Trash Bin Stabl e for 28 days at room temperature.Expires in days from Date Start Date: 07/30/17 Stop Date: 07/30/17 Status: Discontinued insulin lispro 4 unit, 0.04 mL, Route: SUB-Q, Drug form: SOLN, TID-Before Meals, Dosing Weight 90, kg, PRN Blood Glucose Results, Start date: 07/30/17 12:09:00 [employer], Duration: 30 day, Stop date: 08/29/17 12:08:00 [employer] Notes: Roll in palms of hands gently; Do not shake `vigorously. (Same as: Humal og )"Single Patient Use Only "WASTE: F/P - Black; E - Municipal Trash Bin Stabl e for 28 days at room temperature.Expires in days from Date Start Date: 07/30/17 Stop Date: 07/30/17 Status: Discontinued insulin lispro 2 unit, 0.02 mL, Route: SUB-Q, Drug form: SOLN, TID-Before Meals, Dosing Weight 90, kg, PRN Blood Glucose Results, Start date: 07/30/17 12:09:00 [employer], Duration: 30 day, Stop date: 08/29/17 12:08:00 [employer] Notes: Roll in palms of hands gently; Do not shake `vigorously. (Same as: Alexa og )"Single Patient Use Only "WASTE: F/P - Black; E - [employer] Trash Bin Stabl e for 28 days at room temperature.Expires in days from Date Start Date: 07/30/17 Stop Date: 07/30/17 Status: Discontinued metFORMIN 500 mg, 1 tab, Route: PO, Drug form: TAB, Daily, Dosing Weight 90, kg, Start hari e: 07/31/17 9:00:00 [employer], Duration: 30 day, Stop date: 08/30/17 8:59:00 [employer] Notes: (Same as: Glucophage) Take with meal Start Date: 07/31/17 Stop Date: 07/30/17 Status: Canceled morphine Sulfate 2 mg, 0.5 mL, Route: IVP, Drug form: SOLN, Q15Min, Dosing Weight 90, kg, PRN Gabrielle st Pain, Start date: 07/30/17 11:57:00 [employer], Duration: 2 doses or times, Stop hari e: Limited # of times Notes: (Same as:MORPhine Sulfate) Start Date: 07/30/17 Stop Date: 07/30/17 Status: Discontinued nitroglycerin SL Tab 0.4 mg, 1 tab, Route: SL, Drug form: TAB, Q5Min, Dosing Weight 90, kg, PRN Chest Pain, Start date: 07/30/17 11:57:00 [employer], Duration: 3 doses or times, Stop date: Limited # of times Notes: (Same as:Nitroquick, Nitrostat)"Do Not Crush" Sublingual tablet Start Date: 07/30/17 Stop Date: 07/30/17 Status: Discontinued ondansetron 4 mg, 2 mL, Route: IVP, Drug form: INJ, Q8H, Dosing Weight 90, kg, PRN Nausea & Vomiting, Start date: 07/30/17 11:57:00 [employer], Duration: 30 day, Stop date: 08/29 11:56:00 [employer] Notes: (Same as: Zofran) MEDICATION WASTE Product Size: 4 mgProduct Was maryann: _0__ mg Start Date: 07/30/17 Stop Date: 07/30/17 Status: Discontinued Saline Flush 0.9% 10 ml, Route: IVP, Drug Form: INJ, Dosing Weight 90, kg, PRN, PRN Line Flush, St art date: 07/30/17 11:57:00 [employer], Duration: 30 day, Stop date: 08/29/17 11:56:00 [employer] Notes: (Same as: BD Posiflush) Start Date: 07/30/17 Stop Date: 07/30/17 Status: Discontinued Saline Flush 0.9% 10 ml, Route: IVP, Drug Form: INJ, Dosing Weight 90, kg, Q12H, Start date: 07/30 21:00:00 [employer], Duration: 30 day, Stop date: 08/29/17 20:59:00 [employer] Notes: (Same as: BD Posiflush) Start Date: 07/30/17 Stop Date: 07/30/17 Status: Discontinued Saline Flush 0.9% 10 mL, Route: IVP, Drug Form: INJ, Dosing Weight 90, kg, PRN, PRN Line Flush, St art date: 07/30/17 9:11:00 [employer], Duration: 30 day, Stop date: 08/29/17 9:10:00 CS T Notes: (Same as: BD Posiflush) Start Date: 07/30/17 Stop Date: 07/30/17 Status: Discontinued Sodium Chloride 0.9% (Bolus) IV 1,000 mL, 1000 ml/hr, Infuse Over: 1 hr, Route: IV, 1,000, Drug form: INJ, ONCE, Priority: STAT, Dosing Weight 90 kg, Start date: 07/30/17 9:11:00 [employer], Stop hari e: 07/30/17 9:11:00 [employer] Start Date: 07/30/17 Stop Date: 07/30/17 Status: Completed Xanax 0.25 mg oral tablet 0.25 mg, 1 tab, Route: PO, Drug form: TAB, TID, Dosing Weight 90, kg, PRN Anxiet y, Start date: 07/30/17 17:54:00 [employer], Duration: 30 day, Stop date: 08/29/17 17:5 3:00 [employer] Notes: With food or milk(Same as: Xanax) Start Date: 07/30/17 Stop Date: 07/30/17 Status: Discontinued Results ELECTROLYTES 1 2 3 Most recent to oldest [Reference Range]: 139 mEq/L (07/30/17 9:23 AM) Sodium Lvl [135-145 mEq/L] 3.5 mEq/L (07/30/17 9:23 AM) Potassium Lvl [3.5-5.1 mEq/L] 105 mEq/L (07/30/17 9:23 AM) Chloride Lvl [95-109 mEq/L] 26 mEq/L (07/30/17 9:23 AM) CO2 [24-32 mEq/L] 11.5 mEq/L (07/30/17 9:23 AM) AGAP [10.0-20.0 mEq/L] CHEM PANEL 1 2 3 Most recent to oldest [Reference Range]: 0.75 mg/dL (07/30/17 9:23 AM) Creatinine Lvl [0.50-1.40 mg/dL] 106 mL/min/1.73m2 1 *NA* (07/30/17 9:23 AM) eGFR 14 mg/dL (07/30/17 9:23 AM) BUN [7-22 mg/dL] 19 (07/30/17 9:23 AM) B/C Ratio [6-25] 177 mg/dL *HI* (07/30/17 9:23 AM) Glucose Lvl [70-99 mg/dL] 7.1 g/dL (07/30/17 9:23 AM) Total Protein [6.4-8.4 g/dL] 3.4 g/dL *LOW* (07/30/17 9:23 AM) Albumin Lvl [3.5-5.0 g/dL] 3.7 g/dL (07/30/17 9:23 AM) Globulin [2.7-4.2 g/dL] 0.9 (07/30/17 9:23 AM) A/G Ratio [0.7-1.6] 9.1 mg/dL (07/30/17 9:23 AM) Calcium Lvl [8.5-10.5 mg/dL] 28 unit/L (07/30/17 9:23 AM) ALT [0-65 unit/L] 13 unit/L (07/30/17 9:23 AM) AST [0-37 unit/L] 77 unit/L (07/30/17 9:23 AM) Alk Phos [39-136 unit/L] 0.4 mg/dL (07/30/17 9:23 AM) Bili Total [0.2-1.3 mg/dL] 207 unit/L (07/30/17 9:23 AM) Lipase Lvl [73-393 unit/L] 0.11 mmol/L (07/30/17 9:23 AM) Ketone Quantitative [<=0.27 mmol/L] 1Result Comment: The eGFR is calculated using [...] be mul tiplied by the estimated BMI. CARDIAC ENZYMES 1 2 3 Most recent to oldest [Reference Range]: 74 unit/L (07/30/17 5:10 PM) 80 unit/L (07/30/17 12:42 PM) 91 unit/L (07/30/17 9:23 AM) Total CK [12-191 unit/L] 0.7 ng/mL (07/30/17 12:42 PM) 0.8 ng/mL (07/30/17 9:23 AM) CK MB [0.5-3.6 ng/mL] 0.9 (07/30/17 12:42 PM) 0.9 (07/30/17 9:23 AM) CK MB Index [0.0-2.5] <0.02 ng/mL (07/30/17 5:10 PM) <0.02 ng/mL (07/30/17 12:42 PM) <0.02 ng/mL (07/30/17 9:23 AM) Troponin-I [0.00-0.40 ng/mL] LIPIDS 1 2 3 Most recent to oldest [Reference Range]: 2.16 *LOW* (07/30/17 12:42 PM) CHD Risk [3.90-5.80] 186 mg/dL (07/30/17 12:42 PM) Chol [<=199 mg/dL] 66 mg/dL (07/30/17 12:42 PM) Trig [<=149 mg/dL] 86 mg/dL (07/30/17 12:42 PM) HDL [>=61 mg/dL] 87 mg/dL (07/30/17 12:42 PM) LDL (Calculated) [<=99 mg/dL] 13 *NA* (07/30/17 12:42 PM) VLDL DRUG SCREEN 1 2 3 Most recent to oldest [Reference Range]: Negative *NA* (07/30/17 9:23 AM) U Amph Scr [Negative] Negative *NA* (07/30/17 9:23 AM) U Jocelyn Scr [Negative] Negative *NA* (07/30/17 9:23 AM) U Benzodia Scr [Negative] Negative *NA* (07/30/17 9:23 AM) U Cocaine Scr [Negative] Negative *NA* (07/30/17 9:23 AM) U Opiate Scr [Negative] Negative *NA* (07/30/17 9:23 AM) U Phencyc Scr [Negative] Negative *NA* (07/30/17 9:23 AM) U Cannab Scr [Negative] See Note *NA* (07/30/17 9:23 AM) UDS Note ENDOCRINOLOGY 1 2 3 Most recent to oldest [Reference Range]: Negative *NA* (07/30/17 9:23 AM) S Preg [Negative] URINE AND STOOL 1 2 3 Most recent to oldest [Reference Range]: Clear (07/30/17 9:23 AM) UA Turbidity [Clear] Light Yellow *NA* (07/30/17:23 AM) UA Color [Yellow] 7.0 (07/30/17 9:23 AM) UA pH [5.0-8.0] 1.006 (07/30/17 9:23 AM) UA Spec Grav [<=1.030] 50 mg/dL *ABN* (07/30/17:23 AM) UA Glucose [Negative mg/dL] Negative (07/30/17:23 AM) UA Blood [Negative] Negative mg/dL *NA* (07/30/17 9:23 AM) UA Ketones [Negative mg/dL] Negative mg/dL (07/30/17:23 AM) UA Protein [Negative mg/dL] <=1.0 mg/dL *NA* (07/30/17 9:23 AM) UA Urobilinogen [0.1-1.0 mg/dL] Negative *NA* (07/30/17:23 AM) UA Bili [Negative] Trace *ABN* (07/30/17 9:23 AM) UA Leuk Est [Negative] Negative (07/30/17 9:23 AM) UA Nitrite [Negative] 4 /HPF (07/30/17:23 AM) UA WBC [0-5 /HPF] <1 /HPF (07/30/17 9:23 AM) UA RBC [0-2 /HPF] Occasional /HPF *NA* (07/30/17:23 AM) UA Bacteria [None Seen /HPF] Few /LPF *NA* (07/30/17:23 AM) UA Sq Epi [Few /LPF] Few /LPF *NA* (07/30/17 9:23 AM) UA Mucus [None Seen /LPF] HEMATOLOGY 1 2 3 Most recent to oldest [Reference Range]: 9.9 K/CMM (07/30/17 9:23 AM) WBC [3.7-10.4 K/CMM] 4.55 M/CMM (07/30/17 9:23 AM) RBC [4.20-5.40 M/CMM] 12.2 g/dL (07/30/17 9:23 AM) Hgb [12.0-16.0 g/dL] 36.7 % (07/30/17:23 AM) Hct [36.0-48.0 %] 80.8 fL (07/30/17 AM) MCV [80.0-98.0 fL] 26.7 pg *LOW* (07/30/17 AM) MCH [27.0-31.0 pg] 33.1 g/dL (07/30/17 AM) MCHC [32.0-36.0 g/dL] 14.8 % *HI* (07/30/17 AM) RDW [11.5-14.5 %] 296 K/CMM (07/30/17 AM) Platelet [133-450 K/CMM] 8.8 fL (07/30/17 AM) MPV [7.4-10.4 fL] 67.5 % (07/30/17: AM) Segs [45.0-75.0 %] 25.3 % (07/30/17 AM) Lymphocytes [20.0-40.0 %] 4.1 % (07/30/17:23 AM) Monocytes [2.0-12.0 %] 2.4 % (07/30/17: AM) Eosinophils [0.0-4.0 %] 0.7 % (07/30/17:23 AM) Basophils [0.0-1.0 %] 6.6 K/CMM (07/30/17: AM) Segs-Bands # [1.5-8.1 K/CMM] 2.5 K/CMM (07/30/17:23 AM) Lymphocytes # [1.0-5.5 K/CMM] 0.4 K/CMM (07/30/17:23 AM) Monocytes # [0.0-0.8 K/CMM] 0.2 K/CMM (07/30/17 9:23 AM) Eosinophils # [0.0-0.5 K/CMM] 0.1 K/CMM (07/30/17 9:23 AM) Basophils # [0.0-0.2 K/CMM] 13.7 seconds (07/30/17 9:23 AM) PT [12.0-14.7 seconds] 1.05 (07/30/17 9:23 AM) INR [0.85-1.17] <0.27 ug/mL FEU *NA* (07/30/17 9:23 AM) D-Dimer 30.2 seconds (07/30/17 9:23 AM) PTT [22.9-35.8 seconds] Immunizations No data available for this section Procedures Procedure Date Related Diagnosis Body Site Cholecystectomy D&C - Dilatation and curettage Tubal ligation Social History Social History Type Response Alcohol Current, Type Beer, Wine, Liquor. Frequency: 1-2 times per month. Smoking Status Former smoker; Previous treatment: None; Exposure to Tobacco Smoke None; Cigarette Smoking Last 365 Days No; Reg Smoking Cessation Counseling No Assessment and Plan No data available for this section
--- OUTSIDE RECORDS SUMMARY | 2018-06-25 11:32 | XMS REPORT | CCD ---
Author Author Auto Generated Organization [facility] Address Unknown Phone Unavailable Care Team Providers Care Customer Security Clerk Name Role Phone EsmeraldaZack Getachew CP Allergies, Adverse Reactions, Alerts Substance Reaction Status Cipro Active erythromycin Active hydrocodone Active NKDA Canceled Phenergan Active Stadol Active Vital Signs Most recent to oldest [Reference Range]: 1 Height 160.02 cm (11/09/2011 17:20:00) Weight 97.727 kg (11/09/2011 17:20:00) Results RAPID Most recent to oldest [Reference Range]: 1 Grp A Strep Scr [Negative] Negative (11/09/2011 19:45:00)
--- OUTSIDE RECORDS SUMMARY | 2018-06-25 11:32 | XMS REPORT | Summary of Care ---
Author Organization Unknown Address Unknown Phone Unavailable Encounter FAUSTO Baltazar(SHERYL) [id number] Date(s): 06/23/14 - 06/23/14 [facility] [id number] Discharge Diagnosis: Near syncope Discharge Diagnosis: Acute lower UTI Discharge Diagnosis: Acute otitis externa Discharge Disposition: Home Physician Attending: Dat Elkins MD Reason for Visit WEAKNESS/CHEST PAIN Vital Signs Most recent to 1 2 oldest [Reference Range]: Height 157.48 cm (06/23/14 8:30 AM) Temperature Oral 98.2 DegF 98.2 DegF [96.4-99.1 DegF] (06/23/14 11:16 AM) (06/23/14 8:30 AM) Systolic Blood 118 mmHg 132 mmHg Pressure [90-140 (06/23/14 11:16 AM) (06/23/14 8:30 AM) mmHg] Diastolic Blood 65 mmHg 82 mmHg Pressure [60-90 (06/23/14 11:16 AM) (06/23/14 8:30 AM) mmHg] Respiratory Rate 18 BRMIN 16 BRMIN [14-20 BRMIN] (06/23/14 11:16 AM) (06/23/14 8:30 AM) Peripheral Pulse 63 bpm 63 bpm Rate [60-100 bpm] (06/23/14 11:16 AM) (06/23/14 8:30 AM) Weight 52.273 kg (06/23/14 8:30 AM) Body Mass Index 21.08 m2 (06/23/14 8:30 AM) Problem List Condition Effective Dates Status Health Status Informant Asthma(Confirmed) Active Diverticulosis(Confi Resolved rmed) Allergies, Adverse Reactions, Alerts Substance Reaction Severity Status Cipro Active ciprofloxacin Active erythromycin Active HYDROcodone Active hydrocodone Active Phenergan Active Stadol Active Medications hydrocortisone/neomycin/polymyxin B otic solution 4 drp, RIGHT EAR, QID, # 10 mL, 0 Refill(s) Start Date: 06/23/14 Stop Date: 06/30/14 Status: Ordered Macrodantin 100 mg oral capsule 100 mg=1 cap, PO, QID, # 28 cap, 0 Refill(s) Start Date: 06/23/14 Stop Date: 06/30/14 Status: Ordered ondansetron 4 mg, Route: IVP, Drug form: INJ, ONCE, Dosing Weight 52.273, kg, Priority: STAT , Start date: 06/23/14 9:02:00, Stop date: 06/23/14 9:02:00 Start Date: 06/23/14 Stop Date: 06/23/14 Status: Completed Pyridium 200 mg oral tablet 200 mg=1 tab, PO, TID, # 21 tab, 0 Refill(s) Start Date: 06/23/14 Stop Date: 06/30/14 Status: Ordered Sodium Chloride 0.9% (Bolus) IV 1,000 mL, 1,000 ml/hr, Infuse Over: 1 hr, Route: IV, ONCE, Priority: STAT, Dosin g Weight 52.273 kg, Start date: 06/23/14 9:02:00, Duration: 1 doses or times, St op date: 06/23/14 9:02:00 Start Date: 06/23/14 Stop Date: 06/23/14 Status: Completed Results ELECTROLYTES Most recent to 1 oldest [Reference Range]: Sodium Lvl [135-145 137 mEq/L mEq/L] (06/23/14 8:54 AM) Potassium Lvl 3.8 mEq/L [3.5-5.1 mEq/L] (06/23/14 8:54 AM) Chloride Lvl [95-109 106 mEq/L mEq/L] (06/23/14 8:54 AM) CO2 [24-32 mEq/L] 24 mEq/L (06/23/14 8:54 AM) AGAP [10.0-20.0 10.8 mEq/L mEq/L] (06/23/14 8:54 AM) CHEM PANEL Most recent to 1 oldest [Reference Range]: Creatinine Lvl 0.7 mg/dL [0.5-1.4 mg/dL] (06/23/14 8:54 AM) eGFR 117 mL/min/1.73m2 1 *NA* (06/23/14 8:54 AM) BUN [7-22 mg/dL] 12 mg/dL (06/23/14 8:54 AM) Glucose Lvl [70-99 158 mg/dL 2 mg/dL] *HI* (06/23/14 8:54 AM) Calcium Lvl 8.4 mg/dL [8.5-10.5 mg/dL] *LOW* (06/23/14 8:54 AM) 1Result Comment: The eGFR is calculated [...] values reflect the clinical guidelines of the [employer]. ENDOCRINOLOGY Most recent to 1 oldest [Reference Range]: S Preg [Negative] Negative *NA* (06/23/14 8:54 AM) URINE CHEM Most recent to 1 oldest [Reference Range]: U Preg [Negative] Negative (06/23/14 9:40 AM) URINE AND STOOL Most recent to 1 oldest [Reference Range]: UA Turbidity [Clear] Slight *ABN* (06/23/14 9:40 AM) UA Color Ltyellow *NA* (06/23/14 9:40 AM) UA pH [5.0-8.0] 5.0 (06/23/14 9:40 AM) UA Spec Grav 1.015 [<=1.030] (06/23/14 9:40 AM) UA Glucose [Negative Negative mg/dL mg/dL] *NA* (06/23/14 9:40 AM) UA Blood [Negative] Small *ABN* (06/23/14 9:40 AM) UA Ketones [Negative Negative mg/dL mg/dL] *NA* (06/23/14 9:40 AM) UA Protein [Negative Negative mg/dL mg/dL] (06/23/14 9:40 AM) UA Urobilinogen <=1.0 mg/dL [0.1-1.0 mg/dL] *NA* (06/23/14 9:40 AM) UA Bili [Negative] Negative *NA* (06/23/14 9:40 AM) UA Leuk Est Small [Negative] *ABN* (06/23/14 9:40 AM) UA Nitrite Negative [Negative] (06/23/14 9:40 AM) UA WBC [0-5 /HPF] 11 /HPF *HI* (06/23/14 9:40 AM) UA RBC [0-2 /HPF] 2 /HPF (06/23/14 9:40 AM) UA Bacteria [None Occasional /HPF Seen /HPF] *NA* (06/23/14 9:40 AM) UA Sq Epi [Few /LPF] Few /LPF *NA* (06/23/14 9:40 AM) HEMATOLOGY Most recent to 1 oldest [Reference Range]: WBC [3.7-10.4 K/CMM] 10.1 K/CMM (06/23/14 8:54 AM) RBC [4.20-5.40 4.39 M/CMM M/CMM] (06/23/14 8:54 AM) Hgb [12.0-16.0 g/dL] 11.9 g/dL *LOW* (06/23/14 8:54 AM) Hct [36.0-48.0 %] 36.7 % (06/23/14 8:54 AM) MCV [80.0-98.0 fL] 83.5 fL (06/23/14 8:54 AM) MCH [27.0-31.0 pg] 27.0 pg (06/23/14 8:54 AM) MCHC [32.0-36.0 32.3 g/dL g/dL] (06/23/14 8:54 AM) RDW [11.5-14.5 %] 14.2 % (06/23/14 8:54 AM) Platelet [133-450 336 K/CMM K/CMM] (06/23/14 8:54 AM) MPV [7.4-10.4 fL] 8.9 fL (06/23/14 8:54 AM) Segs [45.0-75.0 %] 62.7 % (06/23/14 8:54 AM) Lymphocytes 28.8 % [20.0-40.0 %] (06/23/14 8:54 AM) Monocytes [2.0-12.0 5.1 % %] (06/23/14 8:54 AM) Eosinophils [0.0-4.0 2.7 % %] (06/23/14 8:54 AM) Basophils [0.0-1.0 0.7 % %] (06/23/14 8:54 AM) Segs-Bands # 6.3 K/CMM [1.5-8.1 K/CMM] (06/23/14 8:54 AM) Lymphocytes # 2.9 K/CMM [1.0-5.5 K/CMM] (06/23/14 8:54 AM) Monocytes # [0.0-0.8 0.5 K/CMM K/CMM] (06/23/14 8:54 AM) Eosinophils # 0.3 K/CMM [0.0-0.5 K/CMM] (06/23/14 8:54 AM) Basophils # [0.0-0.2 0.1 K/CMM K/CMM] (06/23/14 8:54 AM) Medications Administered During Your Visit No data available for this section Immunizations No data available for this section
--- OUTSIDE RECORDS SUMMARY | 2018-06-25 11:32 | XMS REPORT | Summary of Care ---
Author Organization Unknown Address Unknown Phone Unavailable Encounter FAUSTO Baltazar(SHERYL) [id number] Date(s): 03/09/15 - 03/10/15 [facility] [address] [place] [address]- Discharge Diagnosis: Acute pelvic inflammatory disease Discharge Diagnosis: Abdominal pain Discharge Diagnosis: Acute pelvic pain, female Discharge Diagnosis: Dizziness Discharge Disposition: Home Physician Attending: Artemio Gonzales MD Vital Signs 1 2 3 Most recent to oldest [Reference Range]: 157.48 cm (03/09/15 4:26 PM) Height 97.9 DegF (03/09/15 11:56 PM) 98.1 DegF (03/09/15 4:26 PM) Temperature Oral [96.4-99.1 DegF] 119/79 mmHg (03/09/15 11:56 PM) 109/69 mmHg (03/09/15 6:56 PM) 121/79 mmHg (03/09/15 4:26 PM) Blood Pressure [90-140/60-90 mmHg] 20 BRMIN (03/09/15 11:56 PM) 18 BRMIN (03/09/15 6:56 PM) 18 BRMIN (03/09/15 4:26 PM) Respiratory Rate [14-20 BRMIN] 70 bpm (03/09/15 11:56 PM) 66 bpm (03/09/15 6:56 PM) 64 bpm (03/09/15 4:26 PM) Peripheral Pulse Rate [60-100 bpm] 100 kg (03/09/15 4:26 PM) Weight 40.32 m2 (03/09/15 4:26 PM) Body Mass Index Problem List Condition Effective Dates Status Health Status Informant Asthma(Confirmed) Active Diverticulosis(Confi Resolved rmed) Allergies, Adverse Reactions, Alerts Substance Reaction Severity Status Cipro Active ciprofloxacin Active erythromycin Active HYDROcodone Active hydrocodone Active Phenergan Active Stadol Active Medications cefTRIAXone 250 mg, Route: IM, Drug form: PDR/INJ, ONCE, Dosing Weight 100, kg, Priority: ST AT, Start date: 03/09/15 23:42:00, Stop date: 03/09/15 23:42:00 Start Date: 03/09/15 Stop Date: 03/09/15 Status: Completed doxycycline monohydrate 100 mg oral tablet 100 mg=1 tab, PO, Q12H, X 14 day, # 28 tab, 0 Refill(s) Start Date: 03/09/15 Stop Date: 03/23/15 Status: Ordered Flagyl 500 mg oral tablet 500 mg=1 tab, PO, Q12H, X 14 day, # 28 tab, 0 Refill(s) Start Date: 03/09/15 Stop Date: 03/23/15 Status: Ordered morphine Sulfate 4 mg, 2 mL, Route: IVP, Drug form: INJ, ONCE, Dosing Weight 100, kg, Priority: S TAT, Start date: 03/09/15 20:14:00, Stop date: 03/09/15 20:14:00 Notes: (Same as:MORPhine Sulfate) Start Date: 03/09/15 Stop Date: 03/09/15 Status: Discontinued NS (Bolus) IV 1,000 mL, 1,000 ml/hr, Infuse Over: 1 hr, Route: IV, 1,000, Drug form: INJ, ONCE , Priority: STAT, Dosing Weight 100 kg, Start date: 03/09/15 17:15:00, Duration: 1 doses or times, Stop date: 03/09/15 17:15:00 Start Date: 03/09/15 Stop Date: 03/09/15 Status: Completed Zofran 4 mg, 2 mL, Route: IVP, Drug form: INJ, ONCE, Dosing Weight 100, kg, Priority: S TAT, Start date: 03/09/15 17:13:00, Stop date: 03/09/15 17:13:00 Notes: (Same as: Zofran) MEDICATION WASTE Product Size: 4 mgProduct Was maryann: ___ mg Start Date: 03/09/15 Stop Date: 03/09/15 Status: Completed Zofran 4 mg oral tablet 4 mg=1 tab, PO, BID, X 5 day, # 10 tab, 0 Refill(s) Start Date: 03/09/15 Stop Date: 03/14/15 Status: Ordered Results ELECTROLYTES Most recent to 1 oldest [Reference Range]: Sodium Lvl [135-145 137 mEq/L mEq/L] (03/09/15 5:25 PM) Potassium Lvl 4.0 mEq/L [3.5-5.1 mEq/L] (03/09/15 5:25 PM) Chloride Lvl [95-109 105 mEq/L mEq/L] (03/09/15 5:25 PM) CO2 [24-32 mEq/L] 27 mEq/L (03/09/15 5:25 PM) AGAP [10.0-20.0 9.0 mEq/L mEq/L] *LOW* (03/09/15 5:25 PM) CHEM PANEL Most recent to 1 oldest [Reference Range]: Creatinine Lvl 0.8 mg/dL [0.5-1.4 mg/dL] (03/09/15 5:25 PM) eGFR 99 mL/min/1.73m2 1 *NA* (03/09/15 5:25 PM) BUN [7-22 mg/dL] 14 mg/dL (03/09/15 5:25 PM) Glucose Lvl [70-99 152 mg/dL 2 mg/dL] *HI* (03/09/15 5:25 PM) Calcium Lvl 8.4 mg/dL [8.5-10.5 mg/dL] *LOW* (03/09/15 5:25 PM) Magnesium Lvl 2.0 mg/dL [1.8-2.4 mg/dL] (03/09/15 5:25 PM) 1Result Comment: The eGFR is calculated [...] values reflect the clinical guidelines of the [place] [employer]. URINE CHEM Most recent to 1 oldest [Reference Range]: U Preg [Negative] Negative (03/09/15 5:30 PM) URINE AND STOOL Most recent to 1 oldest [Reference Range]: UA Turbidity [Clear] Clear (03/09/15 5:30 PM) UA Color [Yellow] Yellow *NA* (03/09/15 5:30 PM) UA pH [5.0-8.0] 6.0 (03/09/15 5:30 PM) UA Spec Grav 1.025 [<=1.030] (03/09/15 5:30 PM) UA Glucose [Negative 150 mg/dL mg/dL] *ABN* (03/09/15 5:30 PM) UA Blood [Negative] Small *ABN* (03/09/15 5:30 PM) UA Ketones [Negative Trace mg/dL mg/dL] *ABN* (03/09/15 5:30 PM) UA Protein [Negative Negative mg/dL mg/dL] (03/09/15 5:30 PM) UA Urobilinogen <=1.0 mg/dL [0.1-1.0 mg/dL] *NA* (03/09/15 5:30 PM) UA Bili [Negative] Negative *NA* (03/09/15 5:30 PM) UA Leuk Est Moderate [Negative] *ABN* (03/09/15 5:30 PM) UA Nitrite Negative [Negative] (03/09/15 5:30 PM) UA WBC [0-5 /HPF] 3 /HPF (03/09/15 5:30 PM) UA RBC [0-2 /HPF] 11 /HPF *HI* (03/09/15 5:30 PM) UA Bacteria [None Occasional /HPF Seen /HPF] *NA* (03/09/15 5:30 PM) UA Sq Epi [Few /LPF] Moderate /LPF *ABN* (03/09/15 5:30 PM) UA Mucus [None Seen Few /LPF /LPF] *NA* (03/09/15 5:30 PM) HEMATOLOGY Most recent to 1 oldest [Reference Range]: WBC [3.7-10.4 K/CMM] 12.2 K/CMM *HI* (03/09/15 7:37 PM) RBC [4.20-5.40 4.26 M/CMM M/CMM] (03/09/15 7:37 PM) Hgb [12.0-16.0 g/dL] 11.7 g/dL *LOW* (03/09/15 7:37 PM) Hct [36.0-48.0 %] 35.6 % *LOW* (03/09/15 7:37 PM) MCV [80.0-98.0 fL] 83.5 fL (03/09/15 7:37 PM) MCH [27.0-31.0 pg] 27.5 pg (03/09/15 7:37 PM) MCHC [32.0-36.0 32.9 g/dL g/dL] (03/09/15 7:37 PM) RDW [11.5-14.5 %] 14.7 % *HI* (03/09/15 7:37 PM) Platelet [133-450 309 K/CMM K/CMM] (03/09/15 7:37 PM) MPV [7.4-10.4 fL] 8.8 fL (03/09/15 7:37 PM) Segs [45.0-75.0 %] 65.0 % (03/09/15 7:37 PM) Lymphocytes 26.4 % [20.0-40.0 %] (03/09/15 7:37 PM) Monocytes [2.0-12.0 5.4 % %] (03/09/15 7:37 PM) Eosinophils [0.0-4.0 2.1 % %] (03/09/15 7:37 PM) Basophils [0.0-1.0 1.1 % %] *HI* (03/09/15 7:37 PM) Segs-Bands # 8.0 K/CMM [1.5-8.1 K/CMM] (03/09/15 7:37 PM) Lymphocytes # 3.2 K/CMM [1.0-5.5 K/CMM] (03/09/15 7:37 PM) Monocytes # [0.0-0.8 0.7 K/CMM K/CMM] (03/09/15 7:37 PM) Eosinophils # 0.3 K/CMM [0.0-0.5 K/CMM] (03/09/15 7:37 PM) Basophils # [0.0-0.2 0.1 K/CMM K/CMM] (03/09/15 7:37 PM) MOLECULAR DIAGNOSTIC Most recent to 1 oldest [Reference Range]: Source APTIMA Urine *NA* (03/09/15 5:30 PM) N gonorrhea by Amp Negative 3 Det (APTIMA) *NA* [Negative] (03/09/15 5:30 PM) 3Interpretive Data: The APTIMA assay is a target amplification nucleic acid probe test utilizing target capture for the qualitative detection and differentiation of ribosomal RNA from Neisseria gonorrhoeae to aid in the diagnosis of disease from symptomatic and asymptomatic individuals using the [employer] System. This assay utilizes FDA cleared IVD reagents. Performance characteristics have b een verified by the [facility] within [facility]. The Molecular Diagnostic Laboratory is authorized under the Clinical Laboratory Imp rovement Amendments of 1988 (CLIA-88) to perform high complexity testing. Immunizations No data available for this section Procedures Procedure Date Related Diagnosis Body Site D&C - Dilatation and curettage Social History Social History Type Response Smoking Status Never smoker; Exposure to Tobacco Smoke None; Cigarette Smoking Last 365 Days No; Reg Smoking Cessation Counseling No Assessment and Plan No data available for this section
--- OUTSIDE RECORDS SUMMARY | 2018-06-25 11:32 | XMS REPORT | Summary of Care ---
Author Organization Unknown Address Unknown Phone Unavailable Encounter HQ Giovanny(FIN) [id number] Date(s): 03/16/15 - 03/16/15 [facility] [address] [place] [address]- Discharge Disposition: Not Seen Physician Attending: Michelle Lorenzo MD Vital Signs Most recent to 1 oldest [Reference Range]: Height 157.48 cm (03/16/15 9:02 PM) Temperature Oral 98.6 DegF [96.4-99.1 DegF] (03/16/15 9:02 PM) Blood Pressure 122/80 mmHg [90-140/60-90 mmHg] (03/16/15 9:02 PM) Respiratory Rate 22 BRMIN [14-20 BRMIN] *HI* (03/16/15 9:02 PM) Peripheral Pulse 80 bpm Rate [60-100 bpm] (03/16/15 9:02 PM) Weight 81.818 kg (03/16/15 9:02 PM) Body Mass Index 32.99 m2 (03/16/15 9:02 PM) Problem List Condition Effective Dates Status Health [...]
--- OUTSIDE RECORDS SUMMARY | 2018-06-25 11:32 | XMS REPORT | CCD ---
Author Author Auto Generated Organization [facility] Address Unknown Phone Unavailable Care Team Providers Care Senior Product Integrity Engineer Name Role Phone Titus Richardson CP Allergies, Adverse Reactions, Alerts Substance Reaction Status Cipro Active erythromycin Active hydrocodone Active NKDA Canceled Phenergan Active Stadol Active Medications Medication Instructions Start Date End Date Status Saline Flush 0.9% 5 ml, Route: IVP, Drug Form: INJ, 10/15/2011 10/16/2011 Discontinued PRN, PRN Line Flush, Start date: 10/15/11 13:56:00, Duration: 24 hr, Stop date: 10/16/11 13:55:00 doxycycline hyclate 100 mg, 1 tab, PO, BID, 20 tab, 10/15/2011 10/25/2011 Ordered 100 mg oral tablet Substitution Allowed, TAB Naprosyn 500 mg oral 500 mg, 1 tab, PO, BID, 20 tab, 10/15/2011 Ordered tablet Substitution Allowed, TAB Vital Signs Most recent to oldest [Reference Range]: 1 2 3 Height 157.48 cm (10/15/2011 13:13:00) Temperature Oral [96.4-99.1 DegF] 98.3 DegF (10/15/2011 19:23:00) 98.6 DegF (10/15/2011 14:31:00) 98.1 DegF (10/15/2011 13:13:00) Systolic Blood Pressure [90-140 mmHg] 110 mmHg (10/15/2011 19:23:00) 114 mmHg (10/15/2011 14:31:00) 112 mmHg (10/15/2011 13:13:00) Diastolic Blood Pressure [60-90 mmHg] 65 mmHg (10/15/2011 19:23:00) 60 mmHg (10/15/2011 14:31:00) 75 mmHg (10/15/2011 13:13:00) Respiratory Rate [14-20 BRMIN] 18 BRMIN (10/15/2011 19:23:00) 18 BRMIN (10/15/2011:31:00) 18 BRMIN (10/15/2011:13:00) Peripheral Pulse Rate [60-100 bpm] 71 bpm (10/15/2011 19:23:00) 68 bpm (10/15/2011 14:31:00) 65 bpm (10/15/2011 13:13:00) Weight 90.909 kg (10/15/2011 13:13:00) Results URINALYSIS Most recent to oldest [Reference Range]: 1 UA Turbidity [Clear] Slight Cloudy (10/15/2011:11:00) UA Color [Yellow] Yellow *NA* (10/15/2011:11:00) UA pH [5.0-8.0] 5.0 (10/15/2011 14:11:00) UA Spec Grav [<=1.030] >=1.030 *ABN* (10/15/2011:11:00) UA Glucose [Negative] Negative (10/15/2011 14:11:00) UA Blood [Negative] Large *ABN* (10/15/2011 14:11:00) UA Ketones [Negative] Negative *NA* (10/15/2011:11:00) UA Protein [Negative] Negative (10/15/2011 14:11:00) UA Urobilinogen [0.1-1.0 EU/dL] 0.2 EU/dL (10/15/2011:11:00) UA Bili [Negative] Negative *NA* (10/15/2011:11:00) UA Leuk Est [Negative] Negative (10/15/2011 14:11:00) UA Nitrite [Negative] Positive *ABN* (10/15/2011:11:00) UA WBC [None Seen /HPF] 0-2 /HPF (10/15/2011 14:11:00) UA RBC [0-2 /HPF] 51-100 /HPF *ABN* (10/15/2011 14:11:00) UA Bacteria [None Seen /HPF] Moderate /HPF (10/15/2011 14:11:00) UA Sq Epi [Few /LPF] Rare /LPF (10/15/2011:11:00) UA Mucus [None Seen /LPF] Few /LPF (10/15/2011:11:00) UA Streeter Yeast [None Seen /HPF] Many /HPF *ABN* (10/15/2011:) Micro? Performed (10/15/2011::) CHEMISTRY Most recent to oldest [Reference Range]: 1 Sodium Lvl [135-145 mEq/L] 140 mEq/L (10/15/2011:11:00) Potassium Lvl [3.5-5.1 mEq/L] 4.1 mEq/L (10/15/2011::00) Chloride Lvl [95-109 mEq/L] 106 mEq/L (10/15/2011:00) CO2 [24-32 mEq/L] 24 mEq/L (10/15/2011::00) AGAP [10.0-20.0 mEq/L] 14.1 mEq/L (10/15/2011:00) Creatinine Lvl [0.5-1.4 mg/dL] 0.7 mg/dL (10/15/2011:00) BUN [7-22 mg/dL] 12 mg/dL (10/15/2011) B/C Ratio [6-25] 17 (10/15/201100) Glucose Lvl 76 mg/dL 1 *NA* (10/15/2011) Total Protein [6.4-8.4 g/dL] 7.6 g/dL (10/15/201100) Albumin Lvl [3.5-5.0 g/dL] 3.8 g/dL (10/15/2011:00) Globulin [2.0-4.0 g/dL] 3.8 g/dL (10/15/201100) A/G Ratio [0.7-1.6] 1.0 (10/15/2011:00) Calcium Lvl [8.5-10.5 mg/dL] 8.7 mg/dL (10/15/2011:11:00) ALT [0-65 U/L] 24 U/L (10/15/2011:) AST [0-37 U/L] 17 U/L (10/15/2011) Alk Phos [39-136 U/L] 60 U/L (10/15/2011) Bili Total [0.2-1.3 mg/dL] 0.3 mg/dL (10/15/2011) Amylase Lvl [25-115 U/L] 25 U/L (10/15/2011) Lipase Lvl [73-393 U/L] 160 U/L (10/15/2011::) S Preg [Negative] Negative *NA* (10/15/2011) 1Interpretive Data: Reference Ranges : 0 - 7 days : 41 - 90 mg/dL7 days - 150 yrs : 70 - 99 mg/dL (fasting), based on the clinical recommendations of the [place] [employer]. HEMATOLOGY Most recent to oldest [Reference Range]: 1 WBC [3.7-10.4 K/CMM] 11.3 K/CMM *HI* (10/15/2011::) RBC [4.20-5.40 M/CMM] 4.67 M/CMM (10/15/201100) Hgb [12.0-16.0 g/dL] 13.2 g/dL (10/15/2011) Hct [36.0-48.0 %] 38.9 % (10/15/2011) MCV [81.0-99.0 fL] 83.4 fL (10/15/2011) MCH [27.0-31.0 pg] 28.3 pg (10/15/2011) MCHC [32.0-36.0 g/dL] 33.9 g/dL (10/15/2011) RDW [11.5-14.5 %] 14.0 % (10/15/2011) Platelet [133-450 K/CMM] 341 K/CMM (10/15/2011:11:) MPV [7.4-10.4 fL] 9.2 fL (10/15/2011:11:) Segs [45.0-75.0 %] 62.2 % (10/15/2011:) Lymphocytes [20.0-40.0 %] 29.5 % (10/15/2011:) Monocytes [2.0-12.0 %] 5.0 % (10/15/2011::) Eosinophils [0.0-4.0 %] 2.1 % (10/15/2011::) Basophils [0.0-1.0 %] 1.2 % *HI* (10/15/2011:) Segs-Bands # [1.5-8.1 K/CMM] 7.0 K/CMM (10/15/2011:11:) Lymphocytes # [1.0-5.5 K/CMM] 3.3 K/CMM (10/15/2011:11:) Monocytes # [0.0-0.8 K/CMM] 0.6 K/CMM (10/15/2011::) Eosinophils # [0.0-0.5 K/CMM] 0.2 K/CMM (10/15/2011::) Basophils # [0.0-0.2 K/CMM] 0.1 K/CMM (10/15/2011::)
--- OUTSIDE RECORDS SUMMARY | 2018-06-25 11:33 | XMS REPORT | Summary of Care ---
Author Author [facility] Organization [facility] Address Unknown Phone Unavailable Encounter FAUSTO Baltazar(SHERYL) [id number] Date(s): 05/25/16 - 05/25/16 [facility] [address] [place] [address]- [phone] Discharge Diagnosis: Urinary tract infection, site not specified Discharge Disposition: Home or Self Care Attending Physician: Titus Richardson MD Vital Signs Most recent to 1 2 oldest [Reference Range]: Height 157.48 cm (05/25/16 7:39 AM) Temperature Oral 98.3 DegF 98.2 DegF [96.4-99.1 DegF] (05/25/16 9:54 AM) (05/25/16 7:39 AM) Blood Pressure 111/72 mmHg 123/81 mmHg [90-140/60-90 mmHg] (05/25/16 9:54 AM) (05/25/16 7:39 AM) Respiratory Rate 18 BRMIN 20 BRMIN [14-20 BRMIN] (05/25/16 9:54 AM) (05/25/16 7:39 AM) Peripheral Pulse 66 bpm 82 bpm Rate [60-100 bpm] (05/25/16 9:54 AM) (05/25/16 7:39 AM) Weight 97.727 kg (05/25/16 7:39 AM) Body Mass Index 39.41 m2 (05/25/16 7:39 AM) Problem List Condition Effective Dates Status Health Status Informant Asthma(Confirmed) Active Bronchitis(Confirmed Resolved ) Diabetes(Confirmed) Resolved Diverticulosis(Confi Resolved rmed) Allergies, Adverse Reactions, Alerts Substance Reaction Severity Status Cipro Active ciprofloxacin Active erythromycin Active HYDROcodone Active hydrocodone Active nitrous oxide Active Phenergan Active predniSONE Active Stadol Active Medications Macrobid 100 mg oral capsule 100 mg=1 cap, PO, BID, X 10 day, # 20 cap, 0 Refill(s) Start Date: 05/25/16 Stop Date: 06/04/16 Status: Ordered NS (Bolus) IV 1,000 mL, 1,000 ml/hr, Infuse Over: 1 hr, Route: IV, ONCE, Priority: STAT, Dosin g Weight 97.727 kg, Start date: 05/25/16 8:07:00 CDT, Duration: 1 doses or times , Stop date: 05/25/16 8:07:00 CDT Start Date: 05/25/16 Stop Date: 05/25/16 Status: Completed Zofran 4 mg, Route: IVP, Drug form: INJ, ONCE, Dosing Weight 97.727, kg, Priority: STAT , Start date: 05/25/16 8:36:00 CDT, Stop date: 05/25/16 8:36:00 CDT Start Date: 05/25/16 Stop Date: 05/25/16 Status: Completed Results ELECTROLYTES Most recent to 1 oldest [Reference Range]: Sodium Lvl [135-145 134 mEq/L mEq/L] *LOW* (05/25/16 8:31 AM) Potassium Lvl 4.1 mEq/L [3.5-5.1 mEq/L] (05/25/16 8:31 AM) Chloride Lvl [95-109 102 mEq/L mEq/L] (05/25/16 8:31 AM) CO2 [24-32 mEq/L] 25 mEq/L (05/25/16 8:31 AM) AGAP [10.0-20.0 11.1 mEq/L mEq/L] (05/25/16 8:31 AM) CHEM PANEL Most recent to 1 oldest [Reference Range]: Creatinine Lvl 0.89 mg/dL [0.50-1.40 mg/dL] (05/25/16 8:31 AM) eGFR 87 mL/min/1.73m2 1 *NA* (05/25/16 8:31 AM) BUN [7-22 mg/dL] 14 mg/dL (05/25/16 8:31 AM) B/C Ratio [6-25] 16 (05/25/16 8:31 AM) Glucose Lvl [70-99 225 mg/dL mg/dL] *HI* (05/25/16 8:31 AM) Total Protein 7.1 g/dL [6.4-8.4 g/dL] (05/25/16 8:31 AM) Albumin Lvl [3.5-5.0 3.3 g/dL g/dL] *LOW* (05/25/16 8:31 AM) Globulin [2.7-4.2 3.8 g/dL g/dL] (05/25/16 8:31 AM) A/G Ratio [0.7-1.6] 0.9 (05/25/16 8:31 AM) Calcium Lvl 8.5 mg/dL [8.5-10.5 mg/dL] (05/25/16 8:31 AM) ALT [0-65 unit/L] 27 unit/L (05/25/16 8:31 AM) AST [0-37 unit/L] 14 unit/L (05/25/16 8:31 AM) Alk Phos [39-136 85 unit/L unit/L] (05/25/16 8:31 AM) Bili Total [0.2-1.3 0.2 mg/dL mg/dL] (05/25/16 8:31 AM) 1Result Comment: The eGFR is calculated [...] BMI. URINE CHEM Most recent to 1 oldest [Reference Range]: U Preg [Negative] Negative (05/25/16 8:38 AM) URINE AND STOOL Most recent to 1 oldest [Reference Range]: UA Turbidity [Clear] Clear (05/25/16 8:38 AM) UA Color Ltyellow *NA* (05/25/16 8:38 AM) UA pH [5.0-8.0] 6.0 (05/25/16 8:38 AM) UA Spec Grav 1.014 [<=1.030] (05/25/16 8:38 AM) UA Glucose [Negative 150 mg/dL mg/dL] *ABN* (05/25/16 8:38 AM) UA Blood [Negative] Negative (05/25/16 8:38 AM) UA Ketones [Negative Trace mg/dL mg/dL] *ABN* (05/25/16 8:38 AM) UA Protein [Negative Negative mg/dL mg/dL] (05/25/16 8:38 AM) UA Urobilinogen <=1.0 mg/dL [0.1-1.0 mg/dL] *NA* (05/25/16 8:38 AM) UA Bili [Negative] Negative *NA* (05/25/16 8:38 AM) UA Leuk Est Large [Negative] *ABN* (05/25/16 8:38 AM) UA Nitrite Negative [Negative] (05/25/16 8:38 AM) UA WBC [0-5 /HPF] 13 /HPF *HI* (05/25/16 8:38 AM) UA RBC [0-2 /HPF] 2 /HPF (05/25/16 8:38 AM) UA Bacteria [None Occasional /HPF Seen /HPF] *NA* (05/25/16 8:38 AM) UA Sq Epi [Few /LPF] Moderate /LPF *ABN* (05/25/16 8:38 AM) HEMATOLOGY Most recent to 1 oldest [Reference Range]: WBC [3.7-10.4 K/CMM] 10.0 K/CMM (05/25/16 8:31 AM) RBC [4.20-5.40 4.79 M/CMM M/CMM] (05/25/16 8:31 AM) Hgb [12.0-16.0 g/dL] 12.3 g/dL (05/25/16 8:31 AM) Hct [36.0-48.0 %] 37.8 % (05/25/16 8:31 AM) MCV [80.0-98.0 fL] 79.0 fL *LOW* (05/25/16 8:31 AM) MCH [27.0-31.0 pg] 25.6 pg *LOW* (05/25/16 8:31 AM) MCHC [32.0-36.0 32.4 g/dL g/dL] (05/25/16 8:31 AM) RDW [11.5-14.5 %] 14.5 % (05/25/16 8:31 AM) Platelet [133-450 296 K/CMM K/CMM] (05/25/16 8:31 AM) MPV [7.4-10.4 fL] 9.0 fL (05/25/16 8:31 AM) Segs [45.0-75.0 %] 58.4 % (05/25/16 8:31 AM) Lymphocytes 31.1 % [20.0-40.0 %] (05/25/16 8:31 AM) Monocytes [2.0-12.0 6.5 % %] (05/25/16 8:31 AM) Eosinophils [0.0-4.0 3.2 % %] (05/25/16 8:31 AM) Basophils [0.0-1.0 0.8 % %] (05/25/16 8:31 AM) Segs-Bands # 5.8 K/CMM [1.5-8.1 K/CMM] (05/25/16 8:31 AM) Lymphocytes # 3.1 K/CMM [1.0-5.5 K/CMM] (05/25/16 8:31 AM) Monocytes # [0.0-0.8 0.7 K/CMM K/CMM] (05/25/16 8:31 AM) Eosinophils # 0.3 K/CMM [0.0-0.5 K/CMM] (05/25/16 8:31 AM) Basophils # [0.0-0.2 0.1 K/CMM K/CMM] (05/25/16 8:31 AM) Immunizations No data available for this [...]
--- OUTSIDE RECORDS SUMMARY | 2018-06-25 11:33 | XMS REPORT | Summary of Care ---
Author Author [facility] Organization [facility] Address Unknown Phone Unavailable Encounter FAUSTO Baltazar(SHERYL) [id number] Date(s): 11/09/15 - 11/10/15 [facility] [address] [place] [address]- [phone] Discharge Diagnosis: Urinary tract infection, site not specified Discharge Diagnosis: Lower abdominal pain, unspecified Discharge Disposition: Home Attending Physician: Tanvir Carrillo MD Vital Signs Most recent to 1 2 oldest [Reference Range]: Height 157.48 cm (11/09/15 10:52 PM) Temperature Oral 98.3 DegF 98.4 DegF [96.4-99.1 DegF] (11/10/15 3:43 AM) (11/09/15 10:52 PM) Blood Pressure 110/70 mmHg 107/62 mmHg [90-140/60-90 mmHg] (11/10/15 3:43 AM) (11/09/15 10:52 PM) Respiratory Rate 20 BRMIN 20 BRMIN [14-20 BRMIN] (11/10/15 3:43 AM) (11/09/15 10:52 PM) Peripheral Pulse 74 bpm 73 bpm Rate [60-100 bpm] (11/10/15 3:43 AM) (11/09/15 10:52 PM) Weight 97.727 kg (11/09/15 10:52 PM) Body Mass Index 39.41 m2 (11/09/15 10:52 PM) Problem List Condition Effective Dates Status Health Status Informant Asthma(Confirmed) Active Bronchitis(Confirmed Resolved ) Diabetes(Confirmed) Resolved Diverticulosis(Confi Resolved rmed) Allergies, Adverse Reactions, Alerts Substance Reaction Severity Status Cipro Active ciprofloxacin Active erythromycin Active HYDROcodone Active hydrocodone Active Phenergan Active predniSONE Active Stadol Active Medications Bactrim DS 800 mg- 160 mg oral tablet 1 tab, PO, BID, X 7 day, # 14 tab, 0 Refill(s) Start Date: 11/10/15 Stop Date: 11/17/15 Status: Ordered naproxen 500 mg oral tablet 500 mg, PO, BID, PRN Pain, # 30 tab, 0 Refill(s) Start Date: 11/10/15 Stop Date: 11/25/15 Status: Ordered Rocephin + Sodium Chloride 0.9% IV 100 mL 1 gm, Route: IVPB, ONCE, Dosing Weight 97.727, kg, Priority: STAT, Start date: 0 11/10/15 1:54:00, Stop date: 11/10/15 1:54:00 Notes: (Same As: Rocephin).Use with 100 mL NS and infuse over 30 min MEDICA TION WASTE Product Size: 1000 mgProduct Wasted: ___ mg Start Date: 11/10/15 Stop Date: 11/10/15 Status: Completed Saline Flush 0.9% 10 mL, Route: IVP, Drug Form: INJ, Dosing Weight 97.727, kg, PRN, PRN Line Flush , Start date: 11/09/15 22:53:00, Duration: 30 day, Stop date: 12/09/15 23:52:00 Notes: (Same as: BD Posiflush) Start Date: 11/09/15 Stop Date: 11/10/15 Status: Discontinued Sodium Chloride 0.9% (Bolus) IV 1,000 mL, 1000 ml/hr, Infuse Over: 1 hr, Route: IV, 1,000, Drug form: INJ, ONCE, Priority: STAT, Dosing Weight 97.727 kg, Start date: 11/10/15 1:54:00, Duration: 1 doses or times, Stop date: 11/10/15 1:54:00 Start Date: 11/10/15 Stop Date: 11/10/15 Status: Completed Results ELECTROLYTES Most recent to 1 oldest [Reference Range]: Sodium Lvl [135-145 139 mEq/L mEq/L] (11/10/15 12:37 AM) Potassium Lvl 4.0 mEq/L [3.5-5.1 mEq/L] (11/10/15 12:37 AM) Chloride Lvl [95-109 105 mEq/L mEq/L] (11/10/15 12:37 AM) CO2 [24-32 mEq/L] 28 mEq/L (11/10/15 12:37 AM) AGAP [10.0-20.0 10.0 mEq/L mEq/L] (11/10/15 12:37 AM) CHEM PANEL Most recent to 1 oldest [Reference Range]: Creatinine Lvl 1.21 mg/dL [0.50-1.40 mg/dL] (11/10/15 12:37 AM) eGFR 60 mL/min/1.73m2 1 *NA* (11/10/15:37 AM) BUN [7-22 mg/dL] 16 mg/dL (11/10/15 12:37 AM) B/C Ratio [6-25] 13 (11/10/15 12:37 AM) Glucose Lvl [70-99 202 mg/dL mg/dL] *HI* (11/10/15 12:37 AM) Total Protein 7.1 g/dL [6.4-8.4 g/dL] (11/10/15 12:37 AM) Albumin Lvl [3.5-5.0 3.3 g/dL g/dL] *LOW* (11/10/15:37 AM) Globulin [2.0-4.0 3.8 g/dL g/dL] (11/10/15 12:37 AM) A/G Ratio [0.7-1.6] 0.9 (11/10/15 12:37 AM) Calcium Lvl 8.2 mg/dL [8.5-10.5 mg/dL] *LOW* (11/10/15 12:37 AM) ALT [0-65 unit/L] 25 unit/L (11/10/15 12:37 AM) AST [0-37 unit/L] 10 unit/L (11/10/15 12:37 AM) Alk Phos [39-136 83 unit/L unit/L] (11/10/15 12:37 AM) Bili Total [0.2-1.3 0.1 mg/dL mg/dL] *LOW* (11/10/15:37 AM) Amylase Lvl [25-115 25 unit/L unit/L] (11/10/15 12:37 AM) Lipase Lvl [73-393 213 unit/L unit/L] (11/10/15 12:37 AM) 1Result Comment: The eGFR is calculated [...] oldest [Reference Range]: U Preg [Negative] Negative (11/09/15 11:08 PM) URINE AND STOOL Most recent to 1 oldest [Reference Range]: UA Turbidity [Clear] Slight *ABN* (11/09/15 11:08 PM) UA Color Ltyellow *NA* (11/09/15 11:08 PM) UA pH [5.0-8.0] 8.0 (11/09/15 11:08 PM) UA Spec Grav 1.023 [<=1.030] (11/09/15 11:08 PM) UA Glucose [Negative 50 mg/dL mg/dL] *ABN* (11/09/15 11:08 PM) UA Blood [Negative] Negative (11/09/15 11:08 PM) UA Ketones [Negative Negative mg/dL mg/dL] *NA* (11/09/15 11:08 PM) UA Protein [Negative 30 mg/dL mg/dL] *ABN* (11/09/15 11:08 PM) UA Urobilinogen <=1.0 mg/dL [0.1-1.0 mg/dL] *NA* (11/09/15 11:08 PM) UA Bili [Negative] Negative *NA* (11/09/15 11:08 PM) UA Leuk Est Large [Negative] *ABN* (11/09/15 11:08 PM) UA Nitrite Negative [Negative] (11/09/15 11:08 PM) UA WBC [0-5 /HPF] 49 /HPF *HI* (11/09/15 11:08 PM) UA RBC [0-2 /HPF] 6 /HPF *HI* (11/09/15 11:08 PM) UA Bacteria [None Occasional /HPF Seen /HPF] *NA* (11/09/15 11:08 PM) UA Sq Epi [Few /LPF] Moderate /LPF *ABN* (11/09/15 11:08 PM) HEMATOLOGY Most recent to 1 oldest [Reference Range]: WBC [3.7-10.4 K/CMM] 12.6 K/CMM *HI* (11/10/15 12:37 AM) RBC [4.20-5.40 4.60 M/CMM M/CMM] (11/10/15 12:37 AM) Hgb [12.0-16.0 g/dL] 11.7 g/dL *LOW* (11/10/15 12:37 AM) Hct [36.0-48.0 %] 36.7 % (11/10/15 12:37 AM) MCV [80.0-98.0 fL] 79.7 fL *LOW* (11/10/15 12:37 AM) MCH [27.0-31.0 pg] 25.3 pg *LOW* (11/10/15 12:37 AM) MCHC [32.0-36.0 31.8 g/dL g/dL] *LOW* (11/10/15 12:37 AM) RDW [11.5-14.5 %] 14.7 % *HI* (11/10/15 12:37 AM) Platelet [133-450 304 K/CMM K/CMM] (11/10/15 12:37 AM) MPV [7.4-10.4 fL] 8.9 fL (11/10/15 12:37 AM) Segs [45.0-75.0 %] 63.2 % (11/10/15 12:37 AM) Lymphocytes 27.3 % [20.0-40.0 %] (11/10/15 12:37 AM) Monocytes [2.0-12.0 5.9 % %] (11/10/15 12:37 AM) Eosinophils [0.0-4.0 3.0 % %] (11/10/15 12:37 AM) Basophils [0.0-1.0 0.6 % %] (11/10/15 12:37 AM) Segs-Bands # 7.9 K/CMM [1.5-8.1 K/CMM] (11/10/15 12:37 AM) Lymphocytes # 3.4 K/CMM [1.0-5.5 K/CMM] (11/10/15 12:37 AM) Monocytes # [0.0-0.8 0.7 K/CMM K/CMM] (11/10/15 12:37 AM) Eosinophils # 0.4 K/CMM [0.0-0.5 K/CMM] (11/10/15 12:37 AM) Basophils # [0.0-0.2 0.1 K/CMM K/CMM] (11/10/15 12:37 AM) Immunizations No data available for this section Procedures Procedure Date Related Diagnosis Body Site D&C - Dilatation and curettage Social History Social History Type Response Alcohol Past Smoking Status Never smoker; Exposure to Tobacco Smoke None; Cigarette Smoking Last 365 Days No; Reg Smoking Cessation Counseling No Assessment and Plan No data available for this section
--- OUTSIDE RECORDS SUMMARY | 2018-06-25 11:33 | XMS REPORT | Summary of Care ---
Author Author [facility] Organization [facility] Address Unknown Phone Unavailable Encounter FAUSTO Baltazar(SHERYL) [id number] Date(s): 06/10/15 - 06/11/15 [facility] [address] [place] [address]- Discharge Diagnosis: Acute lower UTI Discharge Disposition: Home Attending Physician: Daly Stack MD Vital Signs 1 2 3 Most recent to oldest [Reference Range]: 98.0 DegF (06/11/15 2:58 AM) 98.0 DegF (06/10/15 8:18 PM) Temperature Oral [96.4-99.1 DegF] 1 2 3 Most recent to oldest [Reference Range]: 100/60 mmHg (06/11/15 3:52 AM) 115/57 mmHg (06/11/15 2:58 AM) 117/79 mmHg (06/10/15 8:18 PM) Blood Pressure [90-140/60-90 mmHg] 1 2 3 Most recent to oldest [Reference Range]: 18 BRMIN (06/11/15 3:52 AM) 18 BRMIN (06/11/15 2:58 AM) 18 BRMIN (06/10/15 8:18 PM) Respiratory Rate [14-20 BRMIN] 1 2 3 Most recent to oldest [Reference Range]: 54 bpm *LOW* (06/11/15 3:52 AM) 66 bpm (06/11/15 2:58 AM) 80 bpm (06/10/15 8:18 PM) Peripheral Pulse Rate [60-100 bpm] 1 2 3 Most recent to oldest [Reference Range]: 95.455 kg (06/10/15 8:18 PM) Weight Problem List Condition Effective Dates Status Health Status Informant Asthma(Confirmed) Active Diabetes(Confirmed) Resolved Diverticulosis(Confi Resolved rmed) Allergies, Adverse Reactions, Alerts Substance Reaction Severity Status Cipro Active ciprofloxacin Active erythromycin Active HYDROcodone Active hydrocodone Active Phenergan Active Stadol Active Medications acetaminophen 650 mg, Route: OH, ONCE, Dosing Weight 95.455, kg, Priority: STAT, Start date: 1 22:42:00, Stop date: 06/10/15 22:42:00 Start Date: 06/10/15 Stop Date: 06/10/15 Status: Completed Bactrim DS 800 mg- 160 mg oral tablet 1 tab, PO, BID, for UTI, X 3 day, # 6 tab, 0 Refill(s) Special Instructions: for UTI Start Date: 06/11/15 Stop Date: 06/14/15 Status: Ordered Sodium Chloride 0.9% (Bolus) IV 1,000 mL, 100 ml/hr, Infuse Over: 1 Hour, Route: IV, ONCE, Dosing Weight 95.455 kg, Start date: 06/10/15 22:48:00, Stop date: 06/10/15 22:48:00 Start Date: 06/10/15 Stop Date: 06/10/15 Status: Completed Sodium Chloride 0.9% (Bolus) IV 100 mL, 100 ml/hr, Infuse Over: 1 Hour, Route: IV, ONCE, Priority: STAT, Dosing Weight 95.455 kg, Start date: 06/10/15 22:10:00, Duration: 1 doses or times, Sto p date: 06/10/15 22:10:00 Start Date: 06/10/15 Stop Date: 06/10/15 Status: Discontinued Results ELECTROLYTES Most recent to 1 oldest [Reference Range]: Sodium Lvl [135-145 136 mEq/L mEq/L] (06/10/15 10:39 PM) Potassium Lvl 4.1 mEq/L [3.5-5.1 mEq/L] (06/10/15 10:39 PM) Chloride Lvl [95-109 102 mEq/L mEq/L] (06/10/15 10:39 PM) CO2 [24-32 mEq/L] 27 mEq/L (06/10/15 10:39 PM) AGAP [10.0-20.0 11.1 mEq/L mEq/L] (06/10/15 10:39 PM) CHEM PANEL Most recent to 1 oldest [Reference Range]: Creatinine Lvl 0.7 mg/dL [0.5-1.4 mg/dL] (06/10/15 10:39 PM) eGFR 117 mL/min/1.73m2 1 *NA* (06/10/15 10:39 PM) BUN [7-22 mg/dL] 15 mg/dL (06/10/15 10:39 PM) B/C Ratio [6-25] 21 (06/10/15 10:39 PM) Glucose Lvl [70-99 170 mg/dL mg/dL] *HI* (06/10/15 10:39 PM) Total Protein 7.5 g/dL [6.4-8.4 g/dL] (06/10/15 10:39 PM) Albumin Lvl [3.5-5.0 3.2 g/dL g/dL] *LOW* (06/10/15 10:39 PM) Globulin [2.0-4.0 4.3 g/dL g/dL] *HI* (06/10/15 10:39 PM) A/G Ratio [0.7-1.6] 0.7 (06/10/15 10:39 PM) Calcium Lvl 8.5 mg/dL [8.5-10.5 mg/dL] (06/10/15 10:39 PM) ALT [0-65 unit/L] 33 unit/L (06/10/15 10:39 PM) AST [0-37 unit/L] 39 unit/L *HI* (06/10/15 10:39 PM) Alk Phos [39-136 86 unit/L unit/L] (06/10/15 10:39 PM) Bili Total [0.2-1.3 0.3 mg/dL mg/dL] (06/10/15 10:39 PM) 1Result Comment: The eGFR is calculated [...] oldest [Reference Range]: U Preg [Negative] Negative (06/10/15 10:39 PM) URINE AND STOOL Most recent to 1 oldest [Reference Range]: UA Turbidity [Clear] Slight *ABN* (06/10/15 10:39 PM) UA Color Ltyellow *NA* (06/10/15 10:39 PM) UA pH [5.0-8.0] 6.0 (06/10/15 10:39 PM) UA Spec Grav 1.023 [<=1.030] (06/10/15 10:39 PM) UA Glucose [Negative Negative mg/dL mg/dL] *NA* (06/10/15 10:39 PM) UA Blood [Negative] Small *ABN* (06/10/15 10:39 PM) UA Ketones [Negative Negative mg/dL mg/dL] *NA* (06/10/15 10:39 PM) UA Protein [Negative Negative mg/dL mg/dL] (06/10/15 10:39 PM) UA Urobilinogen <=1.0 mg/dL [0.1-1.0 mg/dL] *NA* (06/10/15 10:39 PM) UA Bili [Negative] Negative *NA* (06/10/15 10:39 PM) UA Leuk Est Small [Negative] *ABN* (06/10/15 10:39 PM) UA Nitrite Negative [Negative] (06/10/15 10:39 PM) UA WBC [0-5 /HPF] 4 /HPF (06/10/15 10:39 PM) UA RBC [0-2 /HPF] 4 /HPF *HI* (06/10/15 10:39 PM) UA Bacteria [None Occasional /HPF Seen /HPF] *NA* (06/10/15 10:39 PM) UA Sq Epi [Few /LPF] Many /LPF *ABN* (06/10/15 10:39 PM) UA Mucus [None Seen Few /LPF /LPF] *NA* (06/10/15 10:39 PM) HEMATOLOGY Most recent to 1 oldest [Reference Range]: WBC [3.7-10.4 K/CMM] 12.3 K/CMM *HI* (06/10/15 10:39 PM) RBC [4.20-5.40 4.50 M/CMM M/CMM] (06/10/15 10:39 PM) Hgb [12.0-16.0 g/dL] 11.9 g/dL *LOW* (06/10/15 10:39 PM) Hct [36.0-48.0 %] 37.0 % (06/10/15 10:39 PM) MCV [80.0-98.0 fL] 82.2 fL (06/10/15 10:39 PM) MCH [27.0-31.0 pg] 26.5 pg *LOW* (06/10/15 10:39 PM) MCHC [32.0-36.0 32.3 g/dL g/dL] (06/10/15 10:39 PM) RDW [11.5-14.5 %] 13.8 % (06/10/15 10:39 PM) Platelet [133-450 243 K/CMM K/CMM] (06/10/15 10:39 PM) MPV [7.4-10.4 fL] 9.8 fL (06/10/15 10:39 PM) Segs [45.0-75.0 %] 61.7 % (06/10/15 10:39 PM) Lymphocytes 28.9 % [20.0-40.0 %] (06/10/15 10:39 PM) Monocytes [2.0-12.0 5.8 % %] (06/10/15 10:39 PM) Eosinophils [0.0-4.0 2.6 % %] (06/10/15 10:39 PM) Basophils [0.0-1.0 1.0 % %] (06/10/15 10:39 PM) Segs-Bands # 7.6 K/CMM [1.5-8.1 K/CMM] (06/10/15 10:39 PM) Lymphocytes # 3.5 K/CMM [1.0-5.5 K/CMM] (06/10/15 10:39 PM) Monocytes # [0.0-0.8 0.7 K/CMM K/CMM] (06/10/15 10:39 PM) Eosinophils # 0.3 K/CMM [0.0-0.5 K/CMM] (06/10/15 10:39 PM) Basophils # [0.0-0.2 0.1 K/CMM K/CMM] (06/10/15 10:39 PM) Immunizations No data available for this section Procedures Procedure Date Related Diagnosis Body Site D&C - Dilatation and curettage Social History Social History Type Response Smoking Status Never smoker; Exposure to Tobacco Smoke None; Cigarette Smoking Last 365 Days No; Reg Smoking Cessation Counseling No Assessment and Plan No data available for this section
--- OUTSIDE RECORDS SUMMARY | 2018-06-25 11:33 | XMS REPORT | Summary of Care ---
Author Author [facility] Organization [facility] Address Unknown Phone Unavailable Encounter FAUSTO Baltazar(SHERYL) [id number] Date(s): 09/21/15 - 09/21/15 [facility] [address] [place] [address]- [phone] Discharge Disposition: Non-Emergent Attending Physician: Tanvir Carrillo MD Vital Signs Most recent to 1 oldest [Reference Range]: Height 157.48 cm (09/21/15 8:59 AM) Temperature Oral 98.1 DegF [96.4-99.1 DegF] (09/21/15 8:59 AM) Blood Pressure 108/67 mmHg [90-140/60-90 mmHg] (09/21/15 8:59 AM) Respiratory Rate 18 BRMIN [14-20 BRMIN] (09/21/15 8:59 AM) Peripheral Pulse 66 bpm Rate [60-100 bpm] (09/21/15 8:59 AM) Weight 95 kg (09/21/15 8:59 AM) Body Mass Index 38.31 m2 (09/21/15 8:59 AM) Problem List Condition Effective Dates Status Health Status Informant Asthma(Confirmed) Active Bronchitis(Confirmed Resolved ) Diabetes(Confirmed) Resolved Diverticulosis(Confi Resolved rmed) Allergies, Adverse Reactions, Alerts Substance Reaction Severity Status Cipro Active ciprofloxacin Active erythromycin Active HYDROcodone Active hydrocodone Active Phenergan Active predniSONE Active Stadol Active Medications No data available [...]
--- OUTSIDE RECORDS SUMMARY | 2018-06-25 11:33 | XMS REPORT | Summary of Care ---
Author Author [facility] Organization [facility] Address Unknown Phone Unavailable Encounter FAUSTO Baltazar(SHERYL) [id number] Date(s): 04/20/16 - 04/20/16 [facility] [address] [place] [address]- Discharge Diagnosis: UTI (urinary tract infection) Discharge Diagnosis: Heat exhaustion Discharge Disposition: Home or Self Care Attending Physician: Priti Main DO Vital Signs 1 2 3 Most recent to oldest [Reference Range]: 157.48 cm (04/20/16 12:18 AM) Height 97.0 DegF (04/20/16 4:30 AM) 97.6 DegF (04/20/16 12:18 AM) Temperature Oral [96.4-99.1 DegF] 114/66 mmHg (04/20/16 4:30 AM) 106/60 mmHg (04/20/16 3:58 AM) 115/60 mmHg (04/20/16 1:58 AM) Blood Pressure [90-140/60-90 mmHg] 16 BRMIN (04/20/16 4:30 AM) 18 BRMIN (04/20/16 3:58 AM) 18 BRMIN (04/20/16 1:58 AM) Respiratory Rate [14-20 BRMIN] 65 bpm (04/20/16 4:30 AM) 52 bpm *LOW* (04/20/16 3:58 AM) 69 bpm (04/20/16 1:58 AM) Peripheral Pulse Rate [60-100 bpm] 100 kg (04/20/16 12:18 AM) Weight 40.32 m2 (04/20/16 12:18 AM) Body Mass Index Problem List Condition Effective Dates Status Health Status Informant Asthma(Confirmed) Active Bronchitis(Confirmed Resolved ) Diabetes(Confirmed) Resolved Diverticulosis(Confi Resolved rmed) Allergies, Adverse Reactions, Alerts Substance Reaction Severity Status Cipro Active ciprofloxacin Active erythromycin Active HYDROcodone Active hydrocodone Active nitrous oxide Active Phenergan Active predniSONE Active Stadol Active Medications Keflex 500 mg oral capsule 500 mg=1 cap, PO, BID, X 7 day, # 14 cap, 0 Refill(s) Start Date: 04/20/16 Stop Date: 04/27/16 Status: Ordered Sodium Chloride 0.9% (Bolus) IV 1,000 mL, 2,000 ml/hr, Infuse Over: 30 minutes, Route: IV, ONCE, Priority: STAT, Dosing Weight 100 kg, Start date: 04/20/16 3:26:00 CDT, Duration: 1 doses or ti mes, Stop date: 04/20/16 3:26:00 CDT Start Date: 04/20/16 Stop Date: 04/20/16 Status: Completed Sodium Chloride 0.9% (Bolus) IV 1,000 mL, 2,000 ml/hr, Infuse Over: 30 minutes, Route: IV, ONCE, Priority: STAT, Dosing Weight 100 kg, Start date: 04/20/16 2:26:00 CDT, Duration: 1 doses or ti mes, Stop date: 04/20/16 2:26:00 CDT Start Date: 04/20/16 Stop Date: 04/20/16 Status: Completed Zofran 4 mg, Route: IVP, Drug form: INJ, ONCE, Dosing Weight 100, kg, Priority: STAT, S tart date: 04/20/16 2:43:00 CDT, Stop date: 04/20/16 2:43:00 CDT Start Date: 04/20/16 Stop Date: 04/20/16 Status: Completed Results ELECTROLYTES Most recent to 1 oldest [Reference Range]: Sodium Lvl [135-145 136 mEq/L mEq/L] (04/20/16 2:43 AM) Potassium Lvl 3.7 mEq/L [3.5-5.1 mEq/L] (04/20/16 2:43 AM) Chloride Lvl [95-109 102 mEq/L mEq/L] (04/20/16 2:43 AM) CO2 [24-32 mEq/L] 25 mEq/L (04/20/16 2:43 AM) AGAP [10.0-20.0 12.7 mEq/L mEq/L] (04/20/16 2:43 AM) CHEM PANEL Most recent to 1 oldest [Reference Range]: Creatinine Lvl 0.75 mg/dL [0.50-1.40 mg/dL] (04/20/16 2:43 AM) eGFR 106 mL/min/1.73m2 1 *NA* (04/20/16 2:43 AM) BUN [7-22 mg/dL] 14 mg/dL (04/20/16 2:43 AM) B/C Ratio [6-25] 19 (04/20/16 2:43 AM) Glucose Lvl [70-99 166 mg/dL mg/dL] *HI* (04/20/16 2:43 AM) Total Protein 7.3 g/dL [6.4-8.4 g/dL] (04/20/16 2:43 AM) Albumin Lvl [3.5-5.0 3.4 g/dL g/dL] *LOW* (04/20/16 2:43 AM) Globulin [2.7-4.2 3.9 g/dL g/dL] (04/20/16 2:43 AM) A/G Ratio [0.7-1.6] 0.9 (04/20/16 2:43 AM) Calcium Lvl 8.7 mg/dL [8.5-10.5 mg/dL] (04/20/16 2:43 AM) ALT [0-65 unit/L] 35 unit/L (04/20/16 2:43 AM) AST [0-37 unit/L] 29 unit/L (04/20/16 2:43 AM) Alk Phos [39-136 73 unit/L unit/L] (04/20/16 2:43 AM) Bili Total [0.2-1.3 0.4 mg/dL mg/dL] (04/20/16 2:43 AM) 1Result Comment: The eGFR is calculated [...] tiplied by the estimated BMI. CARDIAC ENZYMES Most recent to 1 oldest [Reference Range]: Total CK [12-191 65 unit/L unit/L] (04/20/16 2:43 AM) URINE CHEM Most recent to 1 oldest [Reference Range]: U Preg [Negative] Negative (04/20/16 2:43 AM) URINE AND STOOL Most recent to 1 oldest [Reference Range]: UA Turbidity [Clear] Clear (04/20/16 2:43 AM) UA Color Ltyellow *NA* (04/20/16 2:43 AM) UA pH [5.0-8.0] 6.0 (04/20/16 2:43 AM) UA Spec Grav 1.009 [<=1.030] (04/20/16 2:43 AM) UA Glucose [Negative Negative mg/dL mg/dL] *NA* (04/20/16 2:43 AM) UA Blood [Negative] Small *ABN* (04/20/16 2:43 AM) UA Ketones [Negative Negative mg/dL mg/dL] *NA* (04/20/16 2:43 AM) UA Protein [Negative Negative mg/dL mg/dL] (04/20/16 2:43 AM) UA Urobilinogen <=1.0 mg/dL [0.1-1.0 mg/dL] *NA* (04/20/16 2:43 AM) UA Bili [Negative] Negative *NA* (04/20/16 2:43 AM) UA Leuk Est Large [Negative] *ABN* (04/20/16 2:43 AM) UA Nitrite Negative [Negative] (04/20/16 2:43 AM) UA WBC [0-5 /HPF] 49 /HPF *HI* (04/20/16 2:43 AM) UA RBC [0-2 /HPF] 6 /HPF *HI* (04/20/16 2:43 AM) UA Bacteria [None Occasional /HPF Seen /HPF] *NA* (04/20/16 2:43 AM) UA Sq Epi [Few /LPF] Occasional /LPF *NA* (04/20/16 2:43 AM) HEMATOLOGY Most recent to 1 oldest [Reference Range]: WBC [3.7-10.4 K/CMM] 10.6 K/CMM *HI* (04/20/16 2:43 AM) RBC [4.20-5.40 4.64 M/CMM M/CMM] (04/20/16 2:43 AM) Hgb [12.0-16.0 g/dL] 12.0 g/dL (04/20/16 2:43 AM) Hct [36.0-48.0 %] 37.1 % (04/20/16 2:43 AM) MCV [80.0-98.0 fL] 80.1 fL (04/20/16 2:43 AM) MCH [27.0-31.0 pg] 25.8 pg *LOW* (04/20/16 2:43 AM) MCHC [32.0-36.0 32.2 g/dL g/dL] (04/20/16 2:43 AM) RDW [11.5-14.5 %] 14.8 % *HI* (04/20/16 2:43 AM) Platelet [133-450 319 K/CMM K/CMM] (04/20/16 2:43 AM) MPV [7.4-10.4 fL] 8.9 fL (04/20/16 2:43 AM) Segs [45.0-75.0 %] 58.6 % (04/20/16 2:43 AM) Lymphocytes 31.7 % [20.0-40.0 %] (04/20/16 2:43 AM) Monocytes [2.0-12.0 6.6 % %] (04/20/16 2:43 AM) Eosinophils [0.0-4.0 2.9 % %] (04/20/16 2:43 AM) Basophils [0.0-1.0 0.2 % %] (04/20/16 2:43 AM) Segs-Bands # 6.2 K/CMM [1.5-8.1 K/CMM] (04/20/16 2:43 AM) Lymphocytes # 3.4 K/CMM [1.0-5.5 K/CMM] (04/20/16 2:43 AM) Monocytes # [0.0-0.8 0.7 K/CMM K/CMM] (04/20/16 2:43 AM) Eosinophils # 0.3 K/CMM [0.0-0.5 K/CMM] (04/20/16 2:43 AM) Immunizations No data available for this section Procedures Procedure Date Related Diagnosis Body Site Cholecystectomy D&C - Dilatation and curettage Tubal ligation Social History Social History Type Response Alcohol Current, Type Beer, Wine, Liquor. Frequency: 1-2 times per month. Smoking Status Never smoker; Exposure to Tobacco Smoke None; Cigarette Smoking Last 365 Days No; Reg Smoking Cessation Counseling No Assessment and Plan No data available for this section
--- OUTSIDE RECORDS SUMMARY | 2018-06-25 11:33 | XMS REPORT | Summary of Care ---
Author Author [facility] Organization [facility] Address Unknown Phone Unavailable Encounter FAUSTO Baltazar(SHERYL) [id number] Date(s): 03/21/16 - 03/21/16 [facility] [address] [place] [address]- Discharge Diagnosis: Urinary tract infection, site not specified Discharge Disposition: Home Attending Physician: Titus Richardson MD Vital Signs Most recent to 1 2 oldest [Reference Range]: Height 157.48 cm (03/21/16 3:13 PM) Temperature Oral 98.3 DegF 98.3 DegF [96.4-99.1 DegF] (03/21/16 7:51 PM) (03/21/16 3:13 PM) Blood Pressure 113/62 mmHg 103/69 mmHg [90-140/60-90 mmHg] (03/21/16 7:51 PM) (03/21/16 3:13 PM) Respiratory Rate 18 BRMIN 17 BRMIN [14-20 BRMIN] (03/21/16 7:51 PM) (03/21/16 3:13 PM) Peripheral Pulse 65 bpm 64 bpm Rate [60-100 bpm] (03/21/16 7:51 PM) (03/21/16 3:13 PM) Weight 97.727 kg (03/21/16 3:13 PM) Body Mass Index 39.41 m2 (03/21/16 3:13 PM) Problem List Condition Effective Dates Status Health Status Informant Asthma(Confirmed) Active Bronchitis(Confirmed Resolved ) Diabetes(Confirmed) Resolved Diverticulosis(Confi Resolved rmed) Allergies, Adverse Reactions, Alerts Substance Reaction Severity Status Cipro Active ciprofloxacin Active erythromycin Active HYDROcodone Active hydrocodone Active nitrous oxide Active Phenergan Active predniSONE Active Stadol Active Medications cephalexin 500 mg oral tablet 500 mg=1 tab, PO, TID, X 14 day, # 42 tab, 0 Refill(s) Start Date: 03/21/16 Stop Date: 04/04/16 Status: Ordered Rocephin + sodium chloride 0.9% INJ 100 mL 1 gm, Route: IVPB, ONCE, Dosing Weight 97.727, kg, Priority: STAT, Start date: 0 03/21/16 17:37:00 CDT, Stop date: 03/21/16 17:37:00 CDT Notes: (Same As: Rocephin).Use with 100 mL NS and infuse over 30 min MEDICA TION WASTE Product Size: 1000 mgProduct Wasted: _0_ mg Start Date: 03/21/16 Stop Date: 03/21/16 Status: Completed Saline Flush 0.9% 10 mL, Route: IVP, Drug Form: INJ, Dosing Weight 94.091, kg, PRN, PRN Line Flush , Start date: 03/21/16 15:17:00 CDT, Duration: 30 day, Stop date: 04/20/16 15:16 :00 CDT Notes: (Same as: BD Posiflush) Start Date: 03/21/16 Stop Date: 03/21/16 Status: Discontinued Sodium Chloride 0.9% (Bolus) IV 1,000 mL, 2,000 ml/hr, Infuse Over: 30 minutes, Route: IV, 1,000, Drug form: INJ , ONCE, Priority: STAT, Dosing Weight 94.091 kg, Start date: 03/21/16 15:17:00 C DT, Duration: 1 doses or times, Stop date: 03/21/16 15:17:00 CDT Start Date: 03/21/16 Stop Date: 03/21/16 Status: Completed Tylenol 650 mg, 2 tab, Route: PO, Drug form: TAB, ONCE, Dosing Weight 97.727, kg, Priori ty: STAT, Start date: 03/21/16 17:37:00 CDT, Stop date: 03/21/16 17:37:00 CDT Notes: Do not exceed 4 gm/day. (Same as: Tylenol) Start Date: 03/21/16 Stop Date: 03/21/16 Status: Completed Zofran ODT 4 mg oral tablet, disintegrating 4 mg=1 tab, PO, Q8H, PRN Nausea and Vomiting, Dissolve tab under tongue, X 5 day , # 15 tab, 0 Refill(s) Start Date: 03/21/16 Stop Date: 03/26/16 Status: Ordered Results ELECTROLYTES Most recent to 1 oldest [Reference Range]: Sodium Lvl [135-145 138 mEq/L mEq/L] (03/21/16 4:54 PM) Potassium Lvl 3.8 mEq/L [3.5-5.1 mEq/L] (03/21/16 4:54 PM) Chloride Lvl [95-109 102 mEq/L mEq/L] (03/21/16 4:54 PM) CO2 [24-32 mEq/L] 26 mEq/L (03/21/16 4:54 PM) AGAP [10.0-20.0 13.8 mEq/L mEq/L] (03/21/16 4:54 PM) CHEM PANEL Most recent to 1 oldest [Reference Range]: Creatinine Lvl 0.74 mg/dL [0.50-1.40 mg/dL] (03/21/16 4:54 PM) eGFR 107 mL/min/1.73m2 1 *NA* (03/21/16 4:54 PM) BUN [7-22 mg/dL] 10 mg/dL (03/21/16 4:54 PM) B/C Ratio [6-25] 14 (03/21/16 4:54 PM) Glucose Lvl [70-99 152 mg/dL mg/dL] *HI* (03/21/16 4:54 PM) Total Protein 8.0 g/dL [6.4-8.4 g/dL] (03/21/16 4:54 PM) Albumin Lvl [3.5-5.0 3.6 g/dL g/dL] (03/21/16 4:54 PM) Globulin [2.0-4.0 4.4 g/dL g/dL] *HI* (03/21/16 4:54 PM) A/G Ratio [0.7-1.6] 0.8 (03/21/16 4:54 PM) Calcium Lvl 8.6 mg/dL [8.5-10.5 mg/dL] (03/21/16 4:54 PM) ALT [0-65 unit/L] 43 unit/L (03/21/16 4:54 PM) AST [0-37 unit/L] 33 unit/L (03/21/16 4:54 PM) Alk Phos [39-136 83 unit/L unit/L] (03/21/16 4:54 PM) Bili Total [0.2-1.3 0.4 mg/dL mg/dL] (03/21/16 4:54 PM) Lipase Lvl [73-393 143 unit/L unit/L] (03/21/16 4:54 PM) 1Result Comment: The eGFR is calculated [...] oldest [Reference Range]: U Preg [Negative] Negative (03/21/16 4:54 PM) URINE AND STOOL Most recent to 1 oldest [Reference Range]: UA Turbidity [Clear] Marked *ABN* (03/21/16 4:54 PM) UA Color [Yellow] Yellow *NA* (03/21/16 4:54 PM) UA pH [5.0-8.0] 5.0 (03/21/16 4:54 PM) UA Spec Grav 1.024 [<=1.030] (03/21/16 4:54 PM) UA Glucose [Negative Negative mg/dL mg/dL] *NA* (03/21/16 4:54 PM) UA Blood [Negative] Moderate *ABN* (03/21/16 4:54 PM) UA Ketones [Negative Negative mg/dL mg/dL] *NA* (03/21/16 4:54 PM) UA Protein [Negative 30 mg/dL mg/dL] *ABN* (03/21/16 4:54 PM) UA Urobilinogen <=1.0 mg/dL [0.1-1.0 mg/dL] *NA* (03/21/16 4:54 PM) UA Bili [Negative] Negative *NA* (03/21/16 4:54 PM) UA Leuk Est Large [Negative] *ABN* (03/21/16 4:54 PM) UA Nitrite Negative [Negative] (03/21/16 4:54 PM) UA WBC [0-5 /HPF] 173 /HPF *HI* (03/21/16 4:54 PM) UA RBC [0-2 /HPF] 25 /HPF *HI* (03/21/16 4:54 PM) UA Sq Epi [Few /LPF] Many /LPF *ABN* (03/21/16 4:54 PM) UA Mucus [None Seen Few /LPF /LPF] *NA* (03/21/16 4:54 PM) HEMATOLOGY Most recent to 1 oldest [Reference Range]: WBC [3.7-10.4 K/CMM] 9.9 K/CMM (03/21/16 4:54 PM) RBC [4.20-5.40 5.07 M/CMM M/CMM] (03/21/16 4:54 PM) Hgb [12.0-16.0 g/dL] 13.1 g/dL (03/21/16 4:54 PM) Hct [36.0-48.0 %] 40.6 % (03/21/16 4:54 PM) MCV [80.0-98.0 fL] 80.0 fL (03/21/16 4:54 PM) MCH [27.0-31.0 pg] 25.8 pg *LOW* (03/21/16 4:54 PM) MCHC [32.0-36.0 32.3 g/dL g/dL] (03/21/16 4:54 PM) RDW [11.5-14.5 %] 15.2 % *HI* (03/21/16 4:54 PM) Platelet [133-450 342 K/CMM K/CMM] (03/21/16 4:54 PM) MPV [7.4-10.4 fL] 9.0 fL (03/21/16 4:54 PM) Segs [45.0-75.0 %] 63.7 % (03/21/16 4:54 PM) Lymphocytes 28.6 % [20.0-40.0 %] (03/21/16 4:54 PM) Monocytes [2.0-12.0 4.6 % %] (03/21/16 4:54 PM) Eosinophils [0.0-4.0 2.6 % %] (03/21/16 4:54 PM) Basophils [0.0-1.0 0.5 % %] (03/21/16 4:54 PM) Segs-Bands # 6.3 K/CMM [1.5-8.1 K/CMM] (03/21/16 4:54 PM) Lymphocytes # 2.8 K/CMM [1.0-5.5 K/CMM] (03/21/16 4:54 PM) Monocytes # [0.0-0.8 0.5 K/CMM K/CMM] (03/21/16 4:54 PM) Eosinophils # 0.3 K/CMM [0.0-0.5 K/CMM] (03/21/16 4:54 PM) Basophils # [0.0-0.2 0.1 K/CMM K/CMM] (03/21/16 4:54 PM) Immunizations No data available for this [...]
--- OUTSIDE RECORDS SUMMARY | 2018-06-25 11:33 | XMS REPORT | Summary of Care ---
Author Author [facility] Organization [facility] Address Unknown Phone Unavailable Encounter FAUSTO Baltazar(SHERYL) [id number] Date(s): 10/16/15 - 10/16/15 [facility] [address] [place] [address]- Discharge Disposition: Home Attending Physician: Sunil Eason MD PHD Vital Signs Most recent to 1 oldest [Reference Range]: Height 157.48 cm (10/16/15 11:16 PM) Temperature Oral 98.0 DegF [96.4-99.1 DegF] (10/16/15 11:16 PM) Blood Pressure 134/80 mmHg [90-140/60-90 mmHg] (10/16/15 11:16 PM) Respiratory Rate 18 BRMIN [14-20 BRMIN] (10/16/15 11:16 PM) Peripheral Pulse 80 bpm Rate [60-100 bpm] (10/16/15 11:16 PM) Weight 97.727 kg (10/16/15 11:16 PM) Body Mass Index 39.41 m2 (10/16/15 11:16 PM) Problem List Condition Effective Dates Status Health Status Informant Asthma(Confirmed) Active Bronchitis(Confirmed Resolved ) Diabetes(Confirmed) Resolved Diverticulosis(Confi Resolved rmed) Allergies, Adverse Reactions, Alerts Substance Reaction Severity Status Cipro Active ciprofloxacin Active erythromycin Active HYDROcodone Active hydrocodone Active Phenergan Active predniSONE Active Stadol Active Medications No data available for this section Results IMMUNOLOGY Most recent to 1 oldest [Reference Range]: CDC HIV 4th GEN Negative [Negative] (10/16/15 11:44 PM) [place]-Hep C Ab Negative [Negative] *NA* (10/16/15 11:44 PM) Immunizations No data available for this [...]
--- OUTSIDE RECORDS SUMMARY | 2018-06-25 11:33 | XMS REPORT | Summary of Care ---
Author Author [facility] Organization [facility] Address Unknown Phone Unavailable Encounter FAUSTO Baltazar(SHERYL) [id number] Date(s): 04/21/15 - 04/21/15 [facility] [address] [place] [address]- Discharge Diagnosis: Abdominal pain Discharge Disposition: Home Attending Physician: Laurel Sim MD Vital Signs 1 2 3 Most recent to oldest [Reference Range]: 157.48 cm (04/21/15 12:33 PM) Height 1 2 3 Most recent to oldest [Reference Range]: 98.0 DegF (04/21/15 4:13 PM) 98.1 DegF (04/21/15 12:33 PM) Temperature Oral [96.4-99.1 DegF] 1 2 3 Most recent to oldest [Reference Range]: 104/62 mmHg (04/21/15 4:13 PM) 124/75 mmHg (04/21/15 12:33 PM) Blood Pressure [90-140/60-90 mmHg] 1 2 3 Most recent to oldest [Reference Range]: 27 BRMIN *HI* (04/21/15 4:13 PM) 19 BRMIN (04/21/15 3:11 PM) 18 BRMIN (04/21/15 12:33 PM) Respiratory Rate [14-20 BRMIN] 1 2 3 Most recent to oldest [Reference Range]: 65 bpm (04/21/15 12:33 PM) Peripheral Pulse Rate [60-100 bpm] 1 2 3 Most recent to oldest [Reference Range]: 113.636 kg (04/21/15 12:33 PM) Weight 1 2 3 Most recent to oldest [Reference Range]: 45.82 m2 (04/21/15 12:33 PM) Body Mass Index Problem List Condition Effective Dates Status Health Status Informant Asthma(Confirmed) Active Diabetes(Confirmed) Resolved Diverticulosis(Confi Resolved rmed) Allergies, Adverse Reactions, Alerts Substance Reaction Severity Status Cipro Active ciprofloxacin Active erythromycin Active HYDROcodone Active hydrocodone Active Phenergan Active Stadol Active Medications Benadryl 25 mg, Route: IVP, ONCE, Dosing Weight 113.636, kg, Priority: STAT, Start date: 04/21/15 14:11:00, Stop date: 04/21/15 14:11:00 Start Date: 04/21/15 Stop Date: 04/21/15 Status: Completed Protonix 40 mg, Route: IVP, ONCE, Dosing Weight 113.636, kg, Priority: STAT, Start date: 04/21/15 14:11:00, Stop date: 04/21/15 14:11:00 Start Date: 04/21/15 Stop Date: 04/21/15 Status: Completed Reglan 10 mg, Route: IVP, Drug form: INJ, ONCE, Dosing Weight 113.636, kg, Priority: ST AT, Start date: 04/21/15 14:11:00, Stop date: 04/21/15 14:11:00 Start Date: 04/21/15 Stop Date: 04/21/15 Status: Completed Sodium Chloride 0.9% (Bolus) IV 1,000 mL, 1,000 ml/hr, Infuse Over: 1 hr, Route: IV, ONCE, Priority: STAT, Dosin g Weight 113.636 kg, Start date: 04/21/15 14:10:00, Duration: 1 doses or times, Stop date: 04/21/15 14:10:00 Start Date: 04/21/15 Stop Date: 04/21/15 Status: Completed Results ELECTROLYTES Most recent to 1 oldest [Reference Range]: Sodium Lvl [135-145 137 mEq/L mEq/L] (04/21/15 2:20 PM) Potassium Lvl 3.6 mEq/L [3.5-5.1 mEq/L] (04/21/15 2:20 PM) Chloride Lvl [95-109 106 mEq/L mEq/L] (04/21/15 2:20 PM) CO2 [24-32 mEq/L] 22 mEq/L *LOW* (04/21/15 2:20 PM) AGAP [10.0-20.0 12.6 mEq/L mEq/L] (8/12/15 2:20 PM) CHEM PANEL Most recent to 1 oldest [Reference Range]: Creatinine Lvl 0.8 mg/dL [0.5-1.4 mg/dL] (04/21/15 2:20 PM) eGFR 99 mL/min/1.73m2 1 *NA* (04/21/15 2:20 PM) BUN [7-22 mg/dL] 11 mg/dL (04/21/15 2:20 PM) B/C Ratio [6-25] 14 (04/21/15 2:20 PM) Glucose Lvl [70-99 131 mg/dL mg/dL] *HI* (04/21/15 2:20 PM) Total Protein 7.8 g/dL [6.4-8.4 g/dL] (04/21/15 2:20 PM) Albumin Lvl [3.5-5.0 3.5 g/dL g/dL] (04/21/15 2:20 PM) Globulin [2.0-4.0 4.3 g/dL g/dL] *HI* (04/21/15 2:20 PM) A/G Ratio [0.7-1.6] 0.8 (04/21/15 2:20 PM) Calcium Lvl 9.0 mg/dL [8.5-10.5 mg/dL] (04/21/15 2:20 PM) ALT [0-65 unit/L] 40 unit/L (04/21/15 2:20 PM) AST [0-37 unit/L] 35 unit/L (04/21/15 2:20 PM) Alk Phos [39-136 82 unit/L unit/L] (04/21/15 2:20 PM) Bili Total [0.2-1.3 0.5 mg/dL mg/dL] (04/21/15 2:20 PM) Amylase Lvl [25-115 19 unit/L unit/L] *LOW* (04/21/15 2:20 PM) Lipase Lvl [73-393 152 unit/L unit/L] (04/21/15 2:20 PM) 1Result Comment: The eGFR is calculated [...] 1 oldest [Reference Range]: Total CK [12-191 66 unit/L unit/L] (04/21/15 2:20 PM) Troponin-I <0.02 ng/mL [0.00-0.40 ng/mL] (04/21/15 2:20 PM) BNP [<=100 pg/mL] 36 pg/mL (04/21/15 2:20 PM) URINE CHEM Most recent to 1 oldest [Reference Range]: U Preg [Negative] Negative (04/21/15 2:20 PM) URINE AND STOOL Most recent to 1 oldest [Reference Range]: UA Turbidity [Clear] Slight *ABN* (04/21/15 2:20 PM) UA Color Ltyellow *NA* (04/21/15 2:20 PM) UA pH [5.0-8.0] 5.0 (04/21/15 2:20 PM) UA Spec Grav 1.015 [<=1.030] (04/21/15 2:20 PM) UA Glucose [Negative Negative mg/dL mg/dL] *NA* (04/21/15 2:20 PM) UA Blood [Negative] Large *ABN* (04/21/15 2:20 PM) UA Ketones [Negative Negative mg/dL mg/dL] *NA* (04/21/15 2:20 PM) UA Protein [Negative Negative mg/dL mg/dL] (04/21/15 2:20 PM) UA Urobilinogen <=1.0 mg/dL [0.1-1.0 mg/dL] *NA* (04/21/15 2:20 PM) UA Bili [Negative] Negative *NA* (04/21/15 2:20 PM) UA Leuk Est Large [Negative] *ABN* (04/21/15 2:20 PM) UA Nitrite Negative [Negative] (04/21/15 2:20 PM) UA WBC [0-5 /HPF] 11 /HPF *HI* (04/21/15 2:20 PM) UA RBC [0-2 /HPF] 76 /HPF *HI* (04/21/15 2:20 PM) UA Bacteria [None Occasional /HPF Seen /HPF] *NA* (04/21/15 2:20 PM) UA Sq Epi [Few /LPF] Few /LPF *NA* (04/21/15 2:20 PM) HEMATOLOGY Most recent to 1 oldest [Reference Range]: WBC [3.7-10.4 K/CMM] 9.4 K/CMM (04/21/15 2:20 PM) RBC [4.20-5.40 4.71 M/CMM M/CMM] (04/21/15 2:20 PM) Hgb [12.0-16.0 g/dL] 13.0 g/dL (04/21/15 2:20 PM) Hct [36.0-48.0 %] 38.9 % (04/21/15 2:20 PM) MCV [80.0-98.0 fL] 82.7 fL (04/21/15 2:20 PM) MCH [27.0-31.0 pg] 27.7 pg (04/21/15 2:20 PM) MCHC [32.0-36.0 33.5 g/dL g/dL] (04/21/15 2:20 PM) RDW [11.5-14.5 %] 14.4 % (04/21/15 2:20 PM) Platelet [133-450 294 K/CMM K/CMM] (04/21/15 2:20 PM) MPV [7.4-10.4 fL] 9.1 fL (04/21/15 2:20 PM) Segs [45.0-75.0 %] 65.2 % (04/21/15 2:20 PM) Lymphocytes 27.0 % [20.0-40.0 %] (04/21/15 2:20 PM) Monocytes [2.0-12.0 5.0 % %] (04/21/15 2:20 PM) Eosinophils [0.0-4.0 1.8 % %] (04/21/15 2:20 PM) Basophils [0.0-1.0 1.0 % %] (04/21/15 2:20 PM) Segs-Bands # 6.1 K/CMM [1.5-8.1 K/CMM] (04/21/15 2:20 PM) Lymphocytes # 2.5 K/CMM [1.0-5.5 K/CMM] (04/21/15 2:20 PM) Monocytes # [0.0-0.8 0.5 K/CMM K/CMM] (04/21/15 2:20 PM) Eosinophils # 0.2 K/CMM [0.0-0.5 K/CMM] (04/21/15 2:20 PM) Basophils # [0.0-0.2 0.1 K/CMM K/CMM] (04/21/15 2:20 PM) PT [12.0-14.7 13.5 seconds seconds] (04/21/15 2:20 PM) INR [0.85-1.17] 1.03 (04/21/15 2:20 PM) PTT [22.9-35.8 30.7 seconds seconds] (04/21/15 2:20 PM) Immunizations No data available for this section Procedures Procedure Date Related Diagnosis Body Site D&C - Dilatation and curettage Social History Social History Type Response Smoking Status Never smoker; Exposure to Tobacco Smoke None; Cigarette Smoking Last 365 Days No; Reg Smoking Cessation Counseling No Assessment and Plan No data available for this section
--- OUTSIDE RECORDS SUMMARY | 2018-06-25 11:33 | XMS REPORT | Summary of Care ---
Author Author [facility] Organization [facility] Address Unknown Phone Unavailable Encounter HQ Giovanny(SHERYL) [id number] Date(s): 04/18/16 - 04/19/16 [facility] [address] [place] [address]- Discharge Diagnosis: Dehydration Discharge Diagnosis: Heat exhaustion, unspecified, initial encounter Discharge Disposition: Home or Self Care Attending Physician: Janey Bailey DO Vital Signs 1 2 3 Most recent to oldest [Reference Range]: 157.48 cm (04/18/16 7:30 PM) Height 98.1 DegF (04/18/16 11:40 PM) 98.1 DegF (04/18/16 10:14 PM) 98.6 DegF (04/18/16 7:30 PM) Temperature Oral [96.4-99.1 DegF] 109/64 mmHg (04/18/16 11:40 PM) 125/65 mmHg (04/18/16 10:14 PM) 153/89 mmHg *HI* (04/18/16 7:30 PM) Blood Pressure [90-140/60-90 mmHg] 18 BRMIN (04/18/16 11:40 PM) 18 BRMIN (04/18/16 10:14 PM) 18 BRMIN (04/18/16 7:30 PM) Respiratory Rate [14-20 BRMIN] 74 bpm (04/18/16 11:40 PM) 63 bpm (04/18/16 10:14 PM) 78 bpm (04/18/16 7:30 PM) Peripheral Pulse Rate [60-100 bpm] 97.727 kg (04/18/16 7:30 PM) Weight 39.41 m2 (04/18/16 7:30 PM) Body Mass Index Problem List Condition Effective Dates Status Health Status Informant Asthma(Confirmed) Active Bronchitis(Confirmed Resolved ) Diabetes(Confirmed) Resolved Diverticulosis(Confi Resolved rmed) Allergies, Adverse Reactions, Alerts Substance Reaction Severity Status Cipro Active ciprofloxacin Active erythromycin Active HYDROcodone Active hydrocodone Active nitrous oxide Active Phenergan Active predniSONE Active Stadol Active Medications ondansetron 4 mg, 2 mL, Route: IVP, Drug form: INJ, ONCE, Dosing Weight 97.727, kg, Priority : STAT, Start date: 04/18/16 19:46:00 CDT, Stop date: 04/18/16 19:46:00 CDT Notes: (Same as: Lionel) MEDICATION WASTE Product Size: 4 mgProduct Was maryann: __0_ mg Start Date: 04/18/16 Stop Date: 04/18/16 Status: Completed Saline Flush 0.9% 10 mL, Route: IVP, Drug Form: INJ, Dosing Weight 97.727, kg, PRN, PRN Line Flush , Start date: 04/18/16 19:46:00 CDT, Duration: 30 day, Stop date: 05/18/16 19:45 :00 CDT Notes: (Same as: BD Posiflush) Start Date: 04/18/16 Stop Date: 04/19/16 Status: Discontinued Sodium Chloride 0.9% (Bolus) IV 1,000 mL, 1000 ml/hr, Infuse Over: 1 hr, Route: IV, 1,000, Drug form: INJ, ONCE, Priority: STAT, Dosing Weight 97.727 kg, Start date: 04/18/16 19:46:00 CDT, Dur ation: 1 doses or times, Stop date: 04/18/16 19:46:00 CDT Start Date: 04/18/16 Stop Date: 04/18/16 Status: Completed Results ELECTROLYTES Most recent to 1 oldest [Reference Range]: Sodium Lvl [135-145 136 mEq/L mEq/L] (04/18/16 8:18 PM) Potassium Lvl 3.5 mEq/L [3.5-5.1 mEq/L] (04/18/16 8:18 PM) Chloride Lvl [95-109 106 mEq/L mEq/L] (04/18/16 8:18 PM) CO2 [24-32 mEq/L] 22 mEq/L *LOW* (04/18/16 8:18 PM) AGAP [10.0-20.0 11.5 mEq/L mEq/L] (04/18/16 8:18 PM) CHEM PANEL Most recent to 1 oldest [Reference Range]: Creatinine Lvl 0.93 mg/dL [0.50-1.40 mg/dL] (04/18/16 8:18 PM) eGFR 82 mL/min/1.73m2 1 *NA* (04/18/16 8:18 PM) BUN [7-22 mg/dL] 14 mg/dL (04/18/16 8:18 PM) B/C Ratio [6-25] 15 (04/18/16 8:18 PM) Glucose Lvl [70-99 186 mg/dL mg/dL] *HI* (04/18/16 8:18 PM) Total Protein 7.8 g/dL [6.4-8.4 g/dL] (04/18/16 8:18 PM) Albumin Lvl [3.5-5.0 3.6 g/dL g/dL] (04/18/16 8:18 PM) Globulin [2.7-4.2 4.2 g/dL g/dL] (04/18/16 8:18 PM) A/G Ratio [0.7-1.6] 0.9 (04/18/16 8:18 PM) Calcium Lvl 8.4 mg/dL [8.5-10.5 mg/dL] *LOW* (04/18/16 8:18 PM) ALT [0-65 unit/L] 37 unit/L (04/18/16 8:18 PM) AST [0-37 unit/L] 30 unit/L (04/18/16 8:18 PM) Alk Phos [39-136 83 unit/L unit/L] (04/18/16 8:18 PM) Bili Total [0.2-1.3 0.4 mg/dL mg/dL] (04/18/16 8:18 PM) 1Result Comment: The eGFR is calculated [...] 1 oldest [Reference Range]: Total CK [12-191 86 unit/L unit/L] (04/18/16 8:18 PM) DRUG SCREEN Most recent to 1 oldest [Reference Range]: U Amph Scr Negative [Negative] *NA* (04/18/16 8:18 PM) U Jocelyn Scr Negative [Negative] *NA* (04/18/16 8:18 PM) U Benzodia Scr Negative [Negative] *NA* (04/18/16 8:18 PM) U Cocaine Scr Negative [Negative] *NA* (04/18/16 8:18 PM) U Opiate Scr Negative [Negative] *NA* (04/18/16 8:18 PM) U Phencyc Scr Negative [Negative] *NA* (04/18/16 8:18 PM) U Cannab Scr Negative [Negative] *NA* (04/18/16 8:18 PM) UDS Note See Note *NA* (04/18/16 8:18 PM) ENDOCRINOLOGY Most recent to 1 oldest [Reference Range]: S Preg [Negative] Negative *NA* (04/18/16 8:18 PM) URINE AND STOOL Most recent to 1 oldest [Reference Range]: UA Turbidity [Clear] Clear (04/18/16 8:18 PM) UA Color Colorless *NA* (04/18/16 8:18 PM) UA pH [5.0-8.0] 6.0 (04/18/16 8:18 PM) UA Spec Grav 1.003 [<=1.030] (04/18/16 8:18 PM) UA Glucose [Negative Negative mg/dL mg/dL] *NA* (04/18/16 8:18 PM) UA Blood [Negative] Small *ABN* (04/18/16 8:18 PM) UA Ketones [Negative Negative mg/dL mg/dL] *NA* (04/18/16 8:18 PM) UA Protein [Negative Negative mg/dL mg/dL] (04/18/16 8:18 PM) UA Urobilinogen <=1.0 mg/dL [0.1-1.0 mg/dL] *NA* (04/18/16 8:18 PM) UA Bili [Negative] Negative *NA* (04/18/16 8:18 PM) UA Leuk Est Trace [Negative] *ABN* (04/18/16 8:18 PM) UA Nitrite Negative [Negative] (04/18/16 8:18 PM) UA WBC [0-5 /HPF] 2 /HPF (04/18/16 8:18 PM) UA RBC [0-2 /HPF] 1 /HPF (04/18/16 8:18 PM) UA Sq Epi [Few /LPF] Occasional /LPF *NA* (04/18/16 8:18 PM) HEMATOLOGY Most recent to 1 oldest [Reference Range]: WBC [3.7-10.4 K/CMM] 12.4 K/CMM *HI* (04/18/16 8:18 PM) RBC [4.20-5.40 4.77 M/CMM M/CMM] (04/18/16 8:18 PM) Hgb [12.0-16.0 g/dL] 12.3 g/dL (04/18/16 8:18 PM) Hct [36.0-48.0 %] 37.8 % (04/18/16 8:18 PM) MCV [80.0-98.0 fL] 79.3 fL *LOW* (04/18/16 8:18 PM) MCH [27.0-31.0 pg] 25.8 pg *LOW* (04/18/16 8:18 PM) MCHC [32.0-36.0 32.6 g/dL g/dL] (04/18/16 8:18 PM) RDW [11.5-14.5 %] 14.9 % *HI* (04/18/16 8:18 PM) Platelet [133-450 339 K/CMM K/CMM] (04/18/16 8:18 PM) MPV [7.4-10.4 fL] 8.9 fL (04/18/16 8:18 PM) Segs [45.0-75.0 %] 73.0 % (04/18/16 8:18 PM) Lymphocytes 20.4 % [20.0-40.0 %] (04/18/16 8:18 PM) Monocytes [2.0-12.0 4.6 % %] (04/18/16 8:18 PM) Eosinophils [0.0-4.0 1.3 % %] (04/18/16 8:18 PM) Basophils [0.0-1.0 0.7 % %] (04/18/16 8:18 PM) Segs-Bands # 9.1 K/CMM [1.5-8.1 K/CMM] *HI* (04/18/16 8:18 PM) Lymphocytes # 2.5 K/CMM [1.0-5.5 K/CMM] (04/18/16 8:18 PM) Monocytes # [0.0-0.8 0.6 K/CMM K/CMM] (04/18/16 8:18 PM) Eosinophils # 0.2 K/CMM [0.0-0.5 K/CMM] (04/18/16 8:18 PM) Basophils # [0.0-0.2 0.1 K/CMM K/CMM] (04/18/16 8:18 PM) Immunizations No data available for this [...]
--- OUTSIDE RECORDS SUMMARY | 2018-06-25 11:33 | XMS REPORT | Summary of Care ---
Author Author [facility] Organization [facility] Address Unknown Phone Unavailable Encounter HQ Giovanny(SHERYL) [id number] Date(s): 12/02/15 - 12/05/15 [facility] [address] [place] [address]- Discharge Disposition: Home Attending Physician: Willie Lopez MD Admitting Physician: Willie Lopez MD Vital Signs 1 2 3 Most recent to oldest [Reference Range]: 170.18 cm (12/03/15 9:00 AM) 157.48 cm (12/02/15 9:18 PM) 157.48 cm (12/02/15 2:56 PM) Height 96.5 kg (12/05/15 4:39 AM) 94.591 kg (12/04/15 6:28 AM) 94.455 kg (12/04/15 6:27 AM) Current Weight 98 DegF (12/05/15 11:40 AM) 98.3 DegF (12/05/15 7:24 AM) 97.6 DegF (12/05/15 4:01 AM) Temperature Oral [96.4-99.1 DegF] 103/63 mmHg (12/05/15 11:40 AM) 90/59 mmHg (12/05/15 7:24 AM) 103/64 mmHg (12/05/15 4:01 AM) Blood Pressure [90-140/60-90 mmHg] 16 BRMIN (12/05/15 11:40 AM) 18 BRMIN (12/05/15 8:42 AM) 16 BRMIN (12/05/15 7:24 AM) Respiratory Rate [14-20 BRMIN] 61 bpm (12/05/15 11:40 AM) 76 bpm (12/05/15 7:24 AM) 66 bpm (12/05/15 4:01 AM) Peripheral Pulse Rate [60-100 bpm] 94.091 kg (12/03/15 9:00 AM) 95 kg (12/02/15 9:18 PM) 95.455 kg (12/02/15 2:56 PM) Weight 32.49 m2 (12/03/15 9:00 AM) 38.31 m2 (12/02/15 9:18 PM) 38.49 m2 (12/02/15 2:56 PM) Body Mass Index Problem List Condition Effective Dates Status Health Status Informant Asthma(Confirmed) Active Bronchitis(Confirmed Resolved ) Diabetes(Confirmed) Resolved Diverticulosis(Confi Resolved rmed) Allergies, Adverse Reactions, Alerts Substance Reaction Severity Status Cipro Active ciprofloxacin Active erythromycin Active HYDROcodone Active hydrocodone Active nitrous oxide Active Phenergan Active predniSONE Active Stadol Active Medications acetaminophen (ANES) Route: IV, Drug form: INJ, ONCE, Stop date: 12/03/15 21:22:00 Start Date: 12/03/15 Stop Date: 12/03/15 Status: Deleted acetaminophen (ANES) (ANES) Route: IV, Drug form: INJ, Start date: 12/03/15 21:36:00, Stop date: 12/03/15 22 :36:00 Start Date: 12/03/15 Stop Date: 12/03/15 Status: Completed acetaminophen-codeine #3 1 tab, Route: PO, Drug Form: TAB, Dosing Weight 94.091, kg, Q4H, PRN Pain Score 4-6, Start date: 12/03/15 22:03:00, Duration: 30 day, Stop date: 01/02/16 22:02: 00 Notes: Do not exceed 4gm/day of acetaminophen. (Same as: Tylenol with Codeine # 3) Start Date: 12/03/15 Stop Date: 12/05/15 Status: Discontinued albuterol 0.083% inhalation solution 2.49 mg, 3 mL, Route: NEB, Drug form: SOLN, Q20Min, Dosing Weight 94.091, kg, SC N Wheezing, Priority: STAT, Start date: 12/03/15 22:06:00, Duration: 30 day, Sto p date: 01/02/16 22:05:00 Notes: SEE RT DOCUMENTATION (Same as: Marga) Start Date: 12/03/15 Stop Date: 12/03/15 Status: Discontinued albuterol-ipratropium 2.5-0.5 mg inhalation solution 3 mL, Route: NEB, Drug Form: SOLN, Dosing Weight 94.091, kg, RQID, Start date: 0 12/04/15 8:53:00, Duration: 30 day, Stop date: 01/03/16 7:00:00 Notes: (Same as: Duoneb) Start Date: 12/04/15 Stop Date: 12/05/15 Status: Discontinued ceFAZolin (ANES) Route: IV, Drug form: INJ, ONCE, Stop date: 12/03/15 21:53:00 Start Date: 12/03/15 Stop Date: 12/03/15 Status: Completed dexamethasone (ANES) Route: IV, Drug form: INJ, ONCE, Stop date: 12/03/15 21:53:00 Start Date: 12/03/15 Stop Date: 12/03/15 Status: Completed diphenhydrAMINE 12.5 mg, 0.25 mL, Route: IVP, Drug form: INJ, Q6H, Dosing Weight 94.091, kg, PRN Itching, Start date: 12/03/15 22:06:00, Duration: 30 day, Stop date: 01/02/16 2 2:05:00 Notes: (Same as: Benadryl) Start Date: 12/03/15 Stop Date: 12/03/15 Status: Discontinued fentaNYL 25 microgram, 0.5 mL, Route: IVP, Drug form: INJ, Q5Min, Dosing Weight 94.091, k g, PRN Pain Score 4-6, Start date: 12/03/15 22:06:00, Duration: 4 doses or times , Stop date: Limited # of times Notes: (Same as: Sublimaze) Preservative free. Start Date: 12/03/15 Stop Date: 12/03/15 Status: Discontinued fentaNYL (ANES) Route: IV, Drug form: INJ, ONCE, Stop date: 12/03/15 21:22:00 Start Date: 12/03/15 Stop Date: 12/03/15 Status: Completed flumazenil 0.2 mg, 2 mL, Route: IVP, Drug form: INJ, PRN, Dosing Weight 94.091, kg, PRN Angel zodiazepine Reversal, Initial dose, Start date: 12/03/15 22:06:00, Duration: 30 day, Stop date: 01/02/16 22:05:00 Notes: (Same as: Romazicon) Start Date: 12/03/15 Stop Date: 12/03/15 Status: Discontinued glycopyrrolate (ANES) Route: IV, Drug form: INJ, ONCE, Stop date: 12/03/15 21:22:00 Start Date: 12/03/15 Stop Date: 12/03/15 Status: Completed hydromorphone 0.5 mg, 0.5 mL, Route: IVP, Drug form: INJ, Q5Min, Dosing Weight 94.091, kg, PRN Pain Score 7-10, Start date: 12/03/15 22:06:00, Duration: 4 doses or times, Stop date: Limited # of times Start Date: 12/03/15 Stop Date: 12/03/15 Status: Discontinued hydromorphone 1 mg, 1 mL, Route: IVP, Drug form: INJ, Q3H, Dosing Weight 94.091, kg, PRN Pain Score 4-6, Start date: 12/03/15 22:03:00, Duration: 30 day, Stop date: 01/02/16 22:02:00 Start Date: 12/03/15 Stop Date: 12/05/15 Status: Discontinued hydromorphone (ANES) Route: IV, Drug form: INJ, ONCE, Stop date: 12/03/15 21:53:00 Start Date: 12/03/15 Stop Date: 12/03/15 Status: Completed Lactated Ringers Injection IV (ANES) (ANES) Route: IV, Total Volume: 1,000, Start date: 12/03/15 20:47:00, Stop date: 21:47:00 Start Date: 12/03/15 Stop Date: 12/03/15 Status: Completed Lactated Ringers Injection IV 1,000 mL 1,000 mL, Rate: 75 ml/hr, Infuse over: 13.3 hr, Route: IV, Dosing Weight 94.091 kg, Total Volume: 1,000, Start date: 12/03/15 22:03:00, Duration: 30 day, Stop d ate: 01/02/16 22:02:00 Start Date: 12/03/15 Stop Date: 12/05/15 Status: Discontinued lidocaine (ANES) Route: IV, Drug form: INJ, ONCE, Stop date: 12/03/15 21:22:00 Start Date: 12/03/15 Stop Date: 12/03/15 Status: Completed meperidine 12.5 mg, 0.25 mL, Route: IVP, Drug form: INJ, Q30Min, Dosing Weight 94.091, kg, PRN Other -See Comment, For shivering, Start date: 12/03/15 22:06:00, Duration: 2 doses or times, Stop date: Limited # of times Notes: (Same As: Demerol) Start Date: 12/03/15 Stop Date: 12/03/15 Status: Discontinued metFORMIN 500 mg, PO, Daily, 0 Refill(s) Start Date: 12/02/15 Status: Ordered metFORMIN 500 mg oral tablet 500 mg, 1 tab, Route: PO, Drug form: TAB, Daily, Dosing Weight 94.091, kg, Start date: 12/04/15 9:00:00, Duration: 30 day, Stop date: 01/02/16 9:00:00 Notes: (Same as: Glucophage) Take with meal Start Date: 12/04/15 Stop Date: 12/05/15 Status: Discontinued midazolam (ANES) Route: IV, Drug form: SOLN, ONCE, Stop date: 12/03/15 21:22:00 Start Date: 12/03/15 Stop Date: 12/03/15 Status: Completed morphine Sulfate 2 mg, 1 mL, Route: IVP, Drug form: INJ, Q4H, Dosing Weight 95.455, kg, PRN Pain Score 7-10, Start date: 12/02/15 17:14:00, Duration: 30 day, Stop date: 01/01/16 17:13:00 Notes: (Same as:MORPhine Sulfate) Start Date: 12/02/15 Stop Date: 12/03/15 Status: Discontinued morphine Sulfate 4 mg, 2 mL, Route: IVP, Drug form: INJ, Q4H, Dosing Weight 95.455, kg, PRN Pain Score 7-10, Start date: 12/03/15 23:53:00, Duration: 30 day, Stop date: 01/02/16 23:52:00 Notes: (Same as:MORPhine Sulfate) Start Date: 12/03/15 Stop Date: 12/05/15 Status: Discontinued morphine Sulfate 2 mg, 1 mL, Route: IVP, Drug form: INJ, Q3H, Dosing Weight 94.091, kg, PRN Pain Score 1-3, Start date: 12/03/15 22:03:00, Duration: 30 day, Stop date: 01/02/16 22:02:00 Notes: (Same as:MORPhine Sulfate) Start Date: 12/03/15 Stop Date: 12/05/15 Status: Discontinued naloxone 0.04 mg, 0.1 mL, Route: IVP, Drug form: INJ, Q2MIN, Dosing Weight 94.091, kg, SC N Narcotic Reversal, Start date: 12/03/15 22:06:00, Duration: 8 doses or times, Stop date: Limited # of times Notes: Same as Narcan Start Date: 12/03/15 Stop Date: 12/03/15 Status: Discontinued neostigmine (ANES) Route: IV, Drug form: INJ, ONCE, Stop date: 12/03/15 21:53:00 Start Date: 12/03/15 Stop Date: 12/03/15 Status: Completed neostigmine (ANES) Route: IV, Drug form: INJ, ONCE, Stop date: 12/03/15 21:22:00 Start Date: 12/03/15 Stop Date: 12/03/15 Status: Completed ondansetron 4 mg, 2 mL, Route: IVP, Drug form: INJ, ONCE, Dosing Weight 94.091, kg, PRN Naus ea & Vomiting, Start date: 12/03/15 22:06:00 Notes: (Same as: Lionel) MEDICATION WASTE Product Size: 4 mgProduct Was maryann: ___ mg Start Date: 12/03/15 Stop Date: 12/03/15 Status: Discontinued ondansetron 4 mg, 2 mL, Route: IVP, Drug form: INJ, Q6H, Dosing Weight 95.455, kg, PRN Nause a & Vomiting, Start date: 12/02/15 17:14:00, Duration: 30 day, Stop date: 01/01/16 17:13:00 Notes: (Same as: Lionel) MEDICATION WASTE Product Size: 4 mgProduct Was maryann: ___ mg Start Date: 12/02/15 Stop Date: 12/03/15 Status: Discontinued ondansetron 4 mg, 2 mL, Route: IVP, Drug form: INJ, Q6H, Dosing Weight 94.091, kg, PRN Nause a & Vomiting, Start date: 12/03/15 23:53:00, Duration: 30 day, Stop date: 01/02/16 23:52:00 Notes: (Same as: Lionel) MEDICATION WASTE Product Size: 4 mgProduct Was maryann: ___ mg Start Date: 12/03/15 Stop Date: 12/05/15 Status: Discontinued ondansetron 4 mg, 2 mL, Route: IVP, Drug form: INJ, Q6H, Dosing Weight 94.091, kg, PRN Nause a & Vomiting, Start date: 12/03/15 22:03:00, Duration: 30 day, Stop date: 01/02/16 22:02:00 Notes: (Same as: Lionel) MEDICATION WASTE Product Size: 4 mgProduct Was maryann: ___ mg Start Date: 12/03/15 Stop Date: 12/04/15 Status: Discontinued ondansetron (ANES) Route: IV, Drug form: INJ, ONCE, Stop date: 12/03/15 21:22:00 Start Date: 12/03/15 Stop Date: 12/03/15 Status: Completed oxyCODONE 10 mg, 2 tab, Route: PO, Drug form: TAB, Q4H, Dosing Weight 94.091, kg, PRN Pain Score 7-10, Start date: 12/03/15 22:06:00, Duration: 30 day, Stop date: 01/02/16 22:05:00 Notes: (Same as: Roxicodone) Start Date: 12/03/15 Stop Date: 12/03/15 Status: Discontinued oxyCODONE 5 mg, 1 tab, Route: PO, Drug form: TAB, Q4H, Dosing Weight 94.091, kg, PRN Pain Score 4-6, Start date: 12/03/15 22:06:00, Duration: 30 day, Stop date: 01/02/16 22:05:00 Notes: (Same as: Roxicodone) Start Date: 12/03/15 Stop Date: 12/03/15 Status: Discontinued promethazine 6.25 mg, Route: IVPB, ONCE, Dosing Weight 94.091, kg, PRN Nausea & Vomiting, Start date: 12/03/15 22:06:00 Start Date: 12/03/15 Stop Date: 12/03/15 Status: Deleted propofol (ANES) Route: IV, Drug form: INJ, ONCE, Stop date: 12/03/15 21:22:00 Start Date: 12/03/15 Stop Date: 12/03/15 Status: Completed Protonix 40 mg, Route: IV, Drug form: INJ, Daily, Dosing Weight 95.455, kg, Start date: 0 12/03/15 9:00:00, Duration: 30 day, Stop date: 01/01/16 9:00:00 Notes: For IV push reconstitute with 10 ml 0.9% sodium chloride and push over 2 minutes. (Same as: Protonix) Start Date: 12/03/15 Stop Date: 12/04/15 Status: Discontinued Protonix 40 mg, 1 tab, Route: PO, Drug form: ECTAB, Daily, Start date: 12/05/15 9:00:00, Duration: 30 day, Stop date: 01/03/16 9:00:00 Notes: Tablet should not be chewed or crushed.(Same as: Protonix) Start Date: 12/05/15 Stop Date: 12/05/15 Status: Discontinued Proventil HFA 90 mcg/inh inhalation aerosol with adapter 2 puff, INHALER, Q4H, PRN wheezing, coughing, or shortness of breath, # 1 ea, 1 Refill(s) Start Date: 12/02/15 Status: Ordered rocuronium (ANES) Route: IV, Drug form: INJ, ONCE, Stop date: 12/03/15 21:53:00 Start Date: 12/03/15 Stop Date: 12/03/15 Status: Completed Saline Flush 0.9% 10 ml, Route: IVP, Drug Form: INJ, Dosing Weight 95.455, kg, PRN, PRN Line Flush , Start date: 12/02/15 17:14:00, Duration: 30 day, Stop date: 01/01/16 17:13:00 Notes: (Same as: BD Posiflush) Start Date: 12/02/15 Stop Date: 12/04/15 Status: Discontinued Saline Flush 0.9% 10 ml, Route: IVP, Drug Form: INJ, Dosing Weight 94.091, kg, PRN, PRN Line Flush , Start date: 12/03/15 23:53:00, Duration: 30 day, Stop date: 01/02/16 23:52:00 Notes: (Same as: BD Posiflush) Start Date: 12/03/15 Stop Date: 12/05/15 Status: Discontinued Sodium Chloride 0.9% IV 1,000 mL 1,000 mL, Rate: 100 ml/hr, Infuse over: 10 hr, Route: IV, Dosing Weight 95.455 k g, Total Volume: 1,000, Start date: 12/02/15 17:14:00, Duration: 30 day, Stop da te: 01/01/16 17:13:00 Start Date: 12/02/15 Stop Date: 12/03/15 Status: Discontinued Sodium Chloride 0.9% IV 1,000 mL 1,000 mL, Rate: 125 ml/hr, Infuse over: 8 hr, Route: IV, Dosing Weight 94.091 kg , Total Volume: 1,000, Start date: 12/03/15 23:53:00, Duration: 30 day, Stop hari e: 01/02/16 23:52:00 Start Date: 12/03/15 Stop Date: 12/05/15 Status: Discontinued Tylenol with Codeine #4 oral tablet 1 tab, PO, Q6H, PRN pain, X 7 day, # 28 tab, 0 Refill(s) Start Date: 12/04/15 Stop Date: 12/11/15 Status: Ordered Xopenex 0.63 mg, Route: NEB, ONCE, Dosing Weight 95, kg, PRN Respiratory Protocol, Start date: 12/03/15 13:56:00, Stop date: 01/02/16 13:55:00 Start Date: 12/03/15 Stop Date: 12/03/15 Status: Completed Zofran 4 mg, 2 mL, Route: IV, Drug form: INJ, Q6H, Dosing Weight 94.091, kg, PRN as nee ded for nausea/vomiting, Start date: 12/04/15 8:53:00, Duration: 30 day, Stop da te: 01/03/16 8:52:00 Notes: (Same as: Zofran) MEDICATION WASTE Product Size: 4 mgProduct Was maryann: ___ mg Start Date: 12/04/15 Stop Date: 12/05/15 Status: Discontinued Zosyn + Sodium Chloride 0.9% IV 100 mL 3.375 gm, Route: IVPB, ABXQ8H, Dosing Weight 94.091, kg, Start date: 12/04/15 1: 00:00, Duration: 30 day, Stop date: 01/02/16 17:00:00 Notes: (Same as: Zosyn)Dosing based on Piperacillin component MEDICATION [place] Product Size: 3375 mgProduct Wasted: ___ mg Start Date: 12/04/15 Stop Date: 12/05/15 Status: Discontinued Results ELECTROLYTES 1 2 3 Most recent to oldest [Reference Range]: 142 mEq/L (12/05/15 5:30 AM) 137 mEq/L (12/04/15 6:56 AM) 139 mEq/L (12/03/15 5:12 AM) Sodium Lvl [135-145 mEq/L] 3.8 mEq/L (12/05/15 5:30 AM) 4.1 mEq/L (12/04/15 6:56 AM) 3.6 mEq/L (12/03/15 5:12 AM) Potassium Lvl [3.5-5.1 mEq/L] 109 mEq/L (12/05/15 5:30 AM) 103 mEq/L (12/04/15 6:56 AM) 105 mEq/L (12/03/15 5:12 AM) Chloride Lvl [95-109 mEq/L] 27 mEq/L (12/05/15 5:30 AM) 26 mEq/L (12/04/15 6:56 AM) 26 mEq/L (12/03/15 5:12 AM) CO2 [24-32 mEq/L] 9.8 mEq/L *LOW* (12/05/15 5:30 AM) 12.1 mEq/L (12/04/15 6:56 AM) 11.6 mEq/L (12/03/15 5:12 AM) AGAP [10.0-20.0 mEq/L] CHEM PANEL 1 2 3 Most recent to oldest [Reference Range]: 0.69 mg/dL (12/05/15 5:30 AM) 0.64 mg/dL (12/04/15 6:56 AM) 0.62 mg/dL (12/03/15 5:12 AM) Creatinine Lvl [0.50-1.40 mg/dL] 116 mL/min/1.73m2 1 *NA* (12/05/15 5:30 AM) 119 mL/min/1.73m2 2 *NA* (12/04/15 6:56 AM) 121 mL/min/1.73m2 3 *NA* (12/03/15 5:12 AM) eGFR 11 mg/dL (12/05/15 5:30 AM) 8 mg/dL (12/04/15 6:56 AM) 10 mg/dL (12/03/15 5:12 AM) BUN [7-22 mg/dL] 16 (12/05/15 5:30 AM) 12 (12/04/15 6:56 AM) 16 (12/03/15 5:12 AM) B/C Ratio [6-25] 155 mg/dL *HI* (12/05/15 5:30 AM) 163 mg/dL *HI* (12/04/15 6:56 AM) 153 mg/dL *HI* (12/03/15 5:12 AM) Glucose Lvl [70-99 mg/dL] 6.0 g/dL *LOW* (12/05/15 5:30 AM) 6.7 g/dL (12/04/15 6:56 AM) 7.0 g/dL (12/03/15 5:12 AM) Total Protein [6.4-8.4 g/dL] 2.9 g/dL *LOW* (12/05/15 5:30 AM) 3.0 g/dL *LOW* (12/04/15 6:56 AM) 3.3 g/dL *LOW* (12/03/15 5:12 AM) Albumin Lvl [3.5-5.0 g/dL] 3.1 g/dL (12/05/15 5:30 AM) 3.7 g/dL (12/04/15 6:56 AM) 3.7 g/dL (12/03/15 5:12 AM) Globulin [2.0-4.0 g/dL] 0.9 (12/05/15 5:30 AM) 0.8 (12/04/15 6:56 AM) 0.9 (12/03/15 5:12 AM) A/G Ratio [0.7-1.6] 7.7 mg/dL *LOW* (12/05/15 5:30 AM) 8.1 mg/dL *LOW* (12/04/15 6:56 AM) 8.0 mg/dL *LOW* (12/03/15 5:12 AM) Calcium Lvl [8.5-10.5 mg/dL] 2.5 mg/dL (12/03/15 5:12 AM) Phosphorus [2.5-4.5 mg/dL] 2.0 mg/dL (12/03/15 5:12 AM) Magnesium Lvl [1.8-2.4 mg/dL] 26 unit/L (12/05/15 5:30 AM) 35 unit/L (12/04/15 6:56 AM) 30 unit/L (12/03/15 5:12 AM) ALT [0-65 unit/L] 11 unit/L (12/05/15 5:30 AM) 22 unit/L (12/04/15 6:56 AM) 13 unit/L (12/03/15 5:12 AM) AST [0-37 unit/L] 57 unit/L (12/05/15 5:30 AM) 68 unit/L (12/04/15 6:56 AM) 72 unit/L (12/03/15 5:12 AM) Alk Phos [39-136 unit/L] 0.3 mg/dL (12/05/15 5:30 AM) 0.7 mg/dL (12/04/15 6:56 AM) 0.4 mg/dL (12/03/15 5:12 AM) Bili Total [0.2-1.3 mg/dL] 163 unit/L (12/02/15 3:35 PM) Lipase Lvl [73-393 unit/L] 1Result Comment: The eGFR is calculated using [...] be mul tiplied by the estimated BMI. 2Result Comment: The eGFR is calculated using the [...] be mul tiplied by the estimated BMI. 3Result Comment: The eGFR is calculated using the [...] be mul tiplied by the estimated BMI. ANEMIA STUDY 1 2 3 Most recent to oldest [Reference Range]: 49 ug/dl (12/04/15 6:56 AM) Iron [30-160 ug/dl] 13 % (12/04/15 6:56 AM) % Satur Fe [12-57 %] 333 ug/dl (12/04/15 6:56 AM) UIBC [110-370 ug/dl] 443 pg/mL (12/04/15 6:56 AM) Vitamin B12 Lvl [254-1320 pg/mL] 382 ug/dl (12/04/15 6:56 AM) TIBC [228-428 ug/dl] URINE CHEM 1 2 3 Most recent to oldest [Reference Range]: Negative (12/02/15 3:35 PM) U Preg [Negative] URINE AND STOOL 1 2 3 Most recent to oldest [Reference Range]: Slight *ABN* (12/02/15 3:35 PM) UA Turbidity [Clear] Ltyellow *NA* (12/02/15 3:35 PM) UA Color 5.0 (12/02/15 3:35 PM) UA pH [5.0-8.0] 1.020 (12/02/15 3:35 PM) UA Spec Grav [<=1.030] Negative mg/dL *NA* (12/02/15 3:35 PM) UA Glucose [Negative mg/dL] Moderate *ABN* (12/02/15 3:35 PM) UA Blood [Negative] Negative mg/dL *NA* (12/02/15 3:35 PM) UA Ketones [Negative mg/dL] Negative mg/dL (12/02/15 3:35 PM) UA Protein [Negative mg/dL] <=1.0 mg/dL *NA* (12/02/15 3:35 PM) UA Urobilinogen [0.1-1.0 mg/dL] Negative *NA* (12/02/15 3:35 PM) UA Bili [Negative] Trace *ABN* (12/02/15 3:35 PM) UA Leuk Est [Negative] Negative (12/02/15 3:35 PM) UA Nitrite [Negative] 2 /HPF (12/02/15 3:35 PM) UA WBC [0-5 /HPF] 3 /HPF *HI* (12/02/15 3:35 PM) UA RBC [0-2 /HPF] Many /LPF *ABN* (12/02/15 3:35 PM) UA Sq Epi [Few /LPF] Few /LPF *NA* (12/02/15 3:35 PM) UA Mucus [None Seen /LPF] HEMATOLOGY 1 2 3 Most recent to oldest [Reference Range]: 11.4 K/CMM *HI* (12/05/15 5:30 AM) 16.6 K/CMM *HI* (12/04/15 6:56 AM) 12.5 K/CMM *HI* (12/03/15 5:12 AM) WBC [3.7-10.4 K/CMM] 4.03 M/CMM *LOW* (12/05/15 5:30 AM) 4.39 M/CMM (12/04/15 6:56 AM) 4.79 M/CMM (12/03/15 5:12 AM) RBC [4.20-5.40 M/CMM] 10.3 g/dL *LOW* (12/05/15 5:30 AM) 11.1 g/dL *LOW* (12/04/15 6:56 AM) 12.1 g/dL (12/03/15 5:12 AM) Hgb [12.0-16.0 g/dL] 32.3 % *LOW* (12/05/15 5:30 AM) 35.0 % *LOW* (12/04/15 6:56 AM) 38.4 % (12/03/15 5:12 AM) Hct [36.0-48.0 %] 80.2 fL (12/05/15 5:30 AM) 79.7 fL *LOW* (12/04/15 6:56 AM) 80.2 fL (12/03/15 5:12 AM) MCV [80.0-98.0 fL] 25.5 pg *LOW* (12/05/15 5:30 AM) 25.4 pg *LOW* (12/04/15 6:56 AM) 25.4 pg *LOW* (12/03/15 5:12 AM) MCH [27.0-31.0 pg] 31.8 g/dL *LOW* (12/05/15 5:30 AM) 31.9 g/dL *LOW* (12/04/15 6:56 AM) 31.7 g/dL *LOW* (12/03/15 5:12 AM) MCHC [32.0-36.0 g/dL] 14.8 % *HI* (12/05/15 5:30 AM) 14.9 % *HI* (12/04/15 6:56 AM) 14.9 % *HI* (12/03/15 5:12 AM) RDW [11.5-14.5 %] 285 K/CMM (12/05/15 5:30 AM) 331 K/CMM (12/04/15 6:56 AM) 320 K/CMM (12/03/15 5:12 AM) Platelet [133-450 K/CMM] 8.9 fL (12/05/15 5:30 AM) 8.8 fL (12/04/15 6:56 AM) 8.8 fL (12/03/15 5:12 AM) MPV [7.4-10.4 fL] 60.0 % (12/05/15 5:30 AM) 83.5 % *HI* (12/04/15 6:56 AM) 67.0 % (12/03/15 5:12 AM) Segs [45.0-75.0 %] 31.4 % (12/05/15 5:30 AM) 11.2 % *LOW* (12/04/15 6:56 AM) 24.7 % (12/03/15 5:12 AM) Lymphocytes [20.0-40.0 %] 6.5 % (12/05/15 5:30 AM) 4.8 % (12/04/15 6:56 AM) 5.0 % (12/03/15 5:12 AM) Monocytes [2.0-12.0 %] 1.6 % (12/05/15 5:30 AM) 0.2 % (12/04/15 6:56 AM) 2.6 % (12/03/15 5:12 AM) Eosinophils [0.0-4.0 %] 0.5 % (12/05/15 5:30 AM) 0.3 % (12/04/15 6:56 AM) 0.7 % (12/03/15 5:12 AM) Basophils [0.0-1.0 %] 6.9 K/CMM (12/05/15 5:30 AM) 13.8 K/CMM *HI* (12/04/15 6:56 AM) 8.4 K/CMM *HI* (12/03/15 5:12 AM) Segs-Bands # [1.5-8.1 K/CMM] 3.6 K/CMM (12/05/15 5:30 AM) 1.9 K/CMM (12/04/15 6:56 AM) 3.1 K/CMM (12/03/15 5:12 AM) Lymphocytes # [1.0-5.5 K/CMM] 0.7 K/CMM (12/05/15 5:30 AM) 0.8 K/CMM (12/04/15 6:56 AM) 0.6 K/CMM (12/03/15 5:12 AM) Monocytes # [0.0-0.8 K/CMM] 0.2 K/CMM (12/05/15 5:30 AM) 0.3 K/CMM (12/03/15 5:12 AM) 0.2 K/CMM (12/02/15 3:35 PM) Eosinophils # [0.0-0.5 K/CMM] 0.1 K/CMM (12/05/15 5:30 AM) 0.1 K/CMM (12/03/15 5:12 AM) 0.1 K/CMM (12/02/15 3:35 PM) Basophils # [0.0-0.2 K/CMM] Immunizations No data available for this section Procedures Procedure Date Related Diagnosis Body Site D&C - Dilatation and curettage Tubal ligation Social History Social History Type Response Alcohol Current, Type Beer, Wine, Liquor. Frequency: 1-2 times per month. Smoking Status Never smoker; Exposure to Tobacco Smoke None; Cigarette Smoking Last 365 Days No; Reg Smoking Cessation Counseling No Assessment and Plan Extracted from: Title: Clinical Document Author: Pantera Carreon MD Date: 12/05/15 Progress Note Gastroenterology and Hepatology IMPRESSION: Acute cholecystitis: s/p LGB NAFLD Leucocytosis Borderline anemia- iron deficiency Chronic abdominal pains/ altered bowel habit: IBS suspected RECOMMENDATIONS AND PLAN: OK to d/c from GI viewpoint diet adv/ activity per surgery F/U with me 3 weeks SUBJECTIVE: Patient seen.s/p LGB late yesterday. C/o less epigastric area pain, especially with deep inspiration, montserrat p.o..; ambulating OK. Nausea, no emesis, no BM. No other acute issues Review of Systems: NEGATIVE unless bold General: weight loss, loss of appetite, fever, chills, excessive malaise, fatigue, generalized weakness HEENT : recent change in vison, eye pain, diplopia, epistaxis, sinus pain, sore throat, throat pain, acute hearing loss, ear pain or discharge RESPIRATORY: shortness of breath, hemoptysis, cough, wheezing, pleuritic pains CVS: chest pain, palpitations, irregular herat beat, low extremity swelling, heart murmurs GI: see HPI : hematuria, dysuria, incontinence,urinary frequency, impaired urine flow. recurrent UTIs MS: acute arthritis, back pain, joint swelling, gout Neurological: acute altered mentation, headaches, recent seizures, falls, recent loss of consciousness, gait problems, focal limb weakness, numbness, tingling , paraesthesia Endocrine: polydypsia, polyuria, unusual hair loss Immunological/ Hematological; acute bleeding, easy bleeding or bruising, lymph node swelling, recurrent infections Psychiatric: hallucinations. psychosis, confusion, depression, suicidal ideation Integument: rash, jaundice, generalized OBJECTIVE: Vital signs as below. NAD HEENT: normal, EOMI, atraumatic, no asymmetry; neck supple, no LN/ thyromegaly/ mass/ bruits, JVD neg Chest: CTA, resonant to percussion, no accessory muscle use Cardiac: regular rhythm, normal S1 and S2; apex not displaced, no edema Abdo: Obese, expected, distended, less epi tenderness, incisons Ok; no mass, no ascites, no hernia, normal BS, no bruits Ext: No cyanosis, clubbing; peripheral pulses palpable Neuro: A and O x3, grossly intact cranial nerves; non-focal exam. MS: nl Recent Labs/Radiology reviewed VitalsTmp(F)[id number] 12/04 [id number]------ 12/04 08:42 1898 21% 12/04 07:2498.42199/5916------ 12/04 04:0197.315397/[id number]--- 12/04 00:0097.154549/[id number]--- 24 Hr Tmax: 98.3F (36.83c) at 12/04 07:24Vital Signs are the last 5 in the past 48 hours. Input/Output RecordInOutBal 4hr Tot [phone] 2624hr Tot [phone] 0 [phone] Scheduled Meds (4):albuterol-ipratropium (albuterol-ipratropium 2.5-0.5 mg inhalation solution), metFORMIN (metFORMIN 500 mg oral tablet), pantoprazole (Protonix), piperacillin-tazobactam + Sodium Chloride 0.9% IV 100 mL (Zosyn + Sodium Chloride 0.9% IV 100 mL) Unscheduled Meds: None PRN Meds (7):acetaminophen-codeine (acetaminophen-codeine #3), hydromorphone, morphine Sulfate, morphine Sulfate, ondansetron, ondansetron (Zofran), sodium chloride (Saline Flush 0.9%) One Time Meds: None Continuous Infusions (2):Lactated Ringers Injection IV 1,000 mL, Sodium Chloride 0.9% IV 1,000 mL 24hr Labs 12/04 1110 Glucose ABD297 H 12/04 0634 Glucose BDQ190 H 12/04 0530 Sodium Xfl583 Potassium Lvl3.8 Chloride Qod527 CO227 AGAP9.8 L Glucose Atr885 H Creatinine Lvl0.69 BUN11 B/C Ratio16 Total Protein6.0 L Albumin Lvl2.9 L Globulin3.1 A/G Ratio0.9 Calcium Lvl7.7 L ALT26 AST11 Alk Phos57 Bili Total0.3 mZDD097 WBC11.4 H RBC4.03 L Hgb10.3 L Hct32.3 L MCV80.2 MCH25.5 L MCHC31.8 L RDW14.8 H Qcpxpgml562 MPV8.9 Segs60.0 Monocytes6.5 Qflkmafzllp99.4 Eosinophils1.6 Basophils0.5 Segs-Bands #6.9 Lymphocytes #3.6 Monocytes #0.7 Eosinophils #0.2 Basophils #0.1 12/03 205 Glucose JGY506 H 12/03 1553 Glucose XRT494 H 12/03 0656 Iron49 % Satur Fe13 GFOR726 TYQD418 Vitamin B12 Bdh083
--- OUTSIDE RECORDS SUMMARY | 2018-06-25 11:34 | XMS REPORT | Summary of Care ---
Author Author [facility] Organization [facility] Address Unknown Phone Unavailable Encounter FAUSTO Baltazar(SHERYL) [id number] Date(s): 10/24/16 - 10/24/16 [facility] [address] [place] [address]- Discharge Disposition: Left Without Being Seen Attending Physician: Francisco De Leon DO Vital Signs Most recent to 1 oldest [Reference Range]: Height 157.48 cm (10/24/16 12:28 AM) Temperature Oral 98.0 DegF [96.4-99.1 DegF] (10/24/16 12:28 AM) Blood Pressure 116/70 mmHg [90-140/60-90 mmHg] (10/24/16 12:28 AM) Respiratory Rate 20 BRMIN [14-20 BRMIN] (10/24/16 12:28 AM) Peripheral Pulse 86 bpm Rate [60-100 bpm] (10/24/16 12:28 AM) Weight 97.727 kg (10/24/16 12:28 AM) Body Mass Index 39.41 m2 (10/24/16 12:28 AM) Problem List Condition Effective Dates Status Health Status Informant Asthma(Confirmed) Active Bronchitis(Confirmed Resolved ) Diabetes(Confirmed) Resolved Diverticulosis(Confi Resolved rmed) Ectopic Resolved (Confirmed) Depression(Confirmed Resolved ) Allergies, Adverse Reactions, Alerts Substance Reaction Severity Status Cipro Active erythromycin Active HYDROcodone Active nitrous oxide Active Phenergan Active predniSONE Active Stadol Active Medications Saline Flush 0.9% 10 mL, Route: IVP, Drug Form: INJ, Dosing Weight 97.727, kg, PRN, PRN Line Flush , Start date: 10/24/16 0:48:00 IP/MOSAIC TECHNICIAN, Duration: 30 day, Stop date: 11/23/16 1:47:0 0 CDT Notes: (Same as: BD Posiflush) Start Date: 10/24/16 Stop Date: 10/24/16 Status: Discontinued Results No data available for this section [...]
--- OUTSIDE RECORDS SUMMARY | 2018-06-25 11:34 | XMS REPORT | Summary of Care ---
Author Author [facility] Organization [facility] Address Unknown Phone Unavailable Encounter FAUSTO Baltazar(SHERYL) [id number] Date(s): 07/12/16 - 07/13/16 [facility] [address] [place] [address]- Discharge Diagnosis: Hyperglycemia Discharge Diagnosis: Atypical chest pain Discharge Diagnosis: Acute lower UTI (urinary tract infection) Discharge Diagnosis: Dizziness Discharge Disposition: Home or Self Care Attending Physician: Priti Main DO Vital Signs 1 2 3 Most recent to oldest [Reference Range]: 162.56 cm (07/12/16 11:56 PM) Height 98 DegF (07/13/16 3:20 AM) 98 DegF (07/13/16 2:36 AM) 98 DegF (07/13/16 12:20 AM) Temperature Oral [96.4-99.1 DegF] 107/65 mmHg (07/13/16 2:36 AM) 110/71 mmHg (07/13/16 1:30 AM) Blood Pressure [90-140/60-90 mmHg] 107 mmHg (07/13/16 3:20 AM) Systolic Blood Pressure [90-140 mmHg] 68 mmHg (07/13/16 3:20 AM) Diastolic Blood Pressure [60-90 mmHg] 18 BRMIN (07/13/16 3:20 AM) 15 BRMIN (07/13/16 2:36 AM) 17 BRMIN (07/13/16 1:30 AM) Respiratory Rate [14-20 BRMIN] 75 bpm (07/12/16 11:56 PM) Peripheral Pulse Rate [60-100 bpm] 97.727 kg (07/12/16 11:56 PM) Weight 36.98 m2 (07/12/16 11:56 PM) Body Mass Index Problem List Condition Effective Dates Status Health Status Informant Asthma(Confirmed) Active Bronchitis(Confirmed Resolved ) Diabetes(Confirmed) Resolved Diverticulosis(Confi Resolved rmed) Depression(Confirmed Resolved ) Allergies, Adverse Reactions, Alerts Substance Reaction Severity Status Cipro Active ciprofloxacin Active erythromycin Active HYDROcodone Active hydrocodone Active nitrous oxide Active Phenergan Active predniSONE Active Stadol Active Medications Ativan 0.5 mg, Route: IVP, Drug form: INJ, ONCE, Dosing Weight 97.727, kg, Priority: ST AT, Start date: 07/13/16 1:39:00 CDT, Stop date: 07/13/16 1:39:00 CDT Start Date: 07/13/16 Stop Date: 07/13/16 Status: Completed Macrobid 100 mg oral capsule 100 mg=1 cap, PO, BID, X 3 day, # 6 cap, 0 Refill(s) Start Date: 07/13/16 Stop Date: 07/16/16 Status: Ordered Saline Flush 0.9% 10 mL, Route: IVP, Drug Form: INJ, Dosing Weight 97.727, kg, PRN, PRN Line Flush , Start date: 07/12/16 23:59:00 CDT, Duration: 30 day, Stop date: 08/11/16 22:58 :00 BRAKESHOE REPAIRER Notes: (Same as: BD Posiflush) Start Date: 07/12/16 Stop Date: 07/13/16 Status: Discontinued Sodium Chloride 0.9% (Bolus) IV 1,000 mL, 2,000 ml/hr, Infuse Over: 30 minutes, Route: IV, ONCE, Priority: STAT, Dosing Weight 97.727 kg, Start date: 07/13/16 1:39:00 CDT, Duration: 1 doses or times, Stop date: 07/13/16 1:39:00 CDT Start Date: 07/13/16 Stop Date: 07/13/16 Status: Completed Results ELECTROLYTES Most recent to 1 oldest [Reference Range]: Sodium Lvl [135-145 137 mEq/L mEq/L] (07/13/16 12:11 AM) Potassium Lvl 3.6 mEq/L [3.5-5.1 mEq/L] (07/13/16 12:11 AM) Chloride Lvl [95-109 104 mEq/L mEq/L] (07/13/16 12:11 AM) CO2 [24-32 mEq/L] 23 mEq/L *LOW* (07/13/16 12:11 AM) AGAP [10.0-20.0 13.6 mEq/L mEq/L] (07/13/16 12:11 AM) CHEM PANEL Most recent to 1 oldest [Reference Range]: Creatinine Lvl 0.84 mg/dL [0.50-1.40 mg/dL] (07/13/16 12:11 AM) eGFR 93 mL/min/1.73m2 1 *NA* (07/13/16 12:11 AM) BUN [7-22 mg/dL] 17 mg/dL (07/13/16 12:11 AM) B/C Ratio [6-25] 20 (07/13/16 12:11 AM) Glucose Lvl [70-99 204 mg/dL mg/dL] *HI* (07/13/16 12:11 AM) Total Protein 7.7 g/dL [6.4-8.4 g/dL] (07/13/16 12:11 AM) Albumin Lvl [3.5-5.0 3.6 g/dL g/dL] (07/13/16 12:11 AM) Globulin [2.7-4.2 4.1 g/dL g/dL] (07/13/16 12:11 AM) A/G Ratio [0.7-1.6] 0.9 (07/13/16 12:11 AM) Calcium Lvl 8.6 mg/dL [8.5-10.5 mg/dL] (07/13/16 12:11 AM) ALT [0-65 unit/L] 41 unit/L (07/13/16 12:11 AM) AST [0-37 unit/L] 26 unit/L (07/13/16 12:11 AM) Alk Phos [39-136 84 unit/L unit/L] (07/13/16 12:11 AM) Bili Total [0.2-1.3 0.3 mg/dL mg/dL] (07/13/16 12:11 AM) 1Result Comment: The eGFR is calculated [...] 1 oldest [Reference Range]: Total CK [12-191 68 unit/L unit/L] (07/13/16 12:11 AM) CK MB [0.5-3.6 0.7 ng/mL ng/mL] (07/13/16 12:11 AM) CK MB Index 1.0 [0.0-2.5] (07/13/16 12:11 AM) Troponin-I <0.02 ng/mL [0.00-0.40 ng/mL] (07/13/16 12:11 AM) URINE AND STOOL Most recent to 1 oldest [Reference Range]: UA Turbidity [Clear] Slight *ABN* (07/13/16 12:42 AM) UA Color [Yellow] Yellow *NA* (07/13/16 12:42 AM) UA pH [5.0-8.0] 5.0 (07/13/16 12:42 AM) UA Spec Grav 1.025 [<=1.030] (07/13/16 12:42 AM) UA Glucose [Negative 50 mg/dL mg/dL] *ABN* (07/13/16 12:42 AM) UA Blood [Negative] Small *ABN* (07/13/16 12:42 AM) UA Ketones [Negative Trace mg/dL mg/dL] *ABN* (07/13/16 12:42 AM) UA Protein [Negative Negative mg/dL mg/dL] (07/13/16 12:42 AM) UA Urobilinogen <=1.0 mg/dL [0.1-1.0 mg/dL] *NA* (07/13/16 12:42 AM) UA Bili [Negative] Negative *NA* (07/13/16 12:42 AM) UA Leuk Est Moderate [Negative] *ABN* (07/13/16 12:42 AM) UA Nitrite Negative [Negative] (07/13/16 12:42 AM) UA WBC [0-5 /HPF] 16 /HPF *HI* (07/13/16 12:42 AM) UA RBC [0-2 /HPF] 3 /HPF *HI* (07/13/16 12:42 AM) UA Bacteria [None Occasional /HPF Seen /HPF] *NA* (07/13/16 12:42 AM) UA Sq Epi [Few /LPF] Many /LPF *ABN* (07/13/16 12:42 AM) UA Mucus [None Seen Few /LPF /LPF] *NA* (07/13/16 12:42 AM) HEMATOLOGY Most recent to 1 oldest [Reference Range]: WBC [3.7-10.4 K/CMM] 11.1 K/CMM *HI* (07/13/16 12:11 AM) RBC [4.20-5.40 4.81 M/CMM M/CMM] (07/13/16 12:11 AM) Hgb [12.0-16.0 g/dL] 12.3 g/dL (07/13/16 12:11 AM) Hct [36.0-48.0 %] 38.1 % (07/13/16 12:11 AM) MCV [80.0-98.0 fL] 79.2 fL *LOW* (07/13/16 12:11 AM) MCH [27.0-31.0 pg] 25.6 pg *LOW* (07/13/16 12:11 AM) MCHC [32.0-36.0 32.3 g/dL g/dL] (07/13/16 12:11 AM) RDW [11.5-14.5 %] 14.7 % *HI* (07/13/16 12:11 AM) Platelet [133-450 336 K/CMM K/CMM] (07/13/16 12:11 AM) MPV [7.4-10.4 fL] 9.1 fL (07/13/16 12:11 AM) Segs [45.0-75.0 %] 61.7 % (07/13/16 12:11 AM) Lymphocytes 30.7 % [20.0-40.0 %] (07/13/16 12:11 AM) Monocytes [2.0-12.0 4.4 % %] (07/13/16 12:11 AM) Eosinophils [0.0-4.0 2.6 % %] (07/13/16 12:11 AM) Basophils [0.0-1.0 0.6 % %] (07/13/16 12:11 AM) Segs-Bands # 6.9 K/CMM [1.5-8.1 K/CMM] (07/13/16 12:11 AM) Lymphocytes # 3.4 K/CMM [1.0-5.5 K/CMM] (07/13/16 12:11 AM) Monocytes # [0.0-0.8 0.5 K/CMM K/CMM] (07/13/16 12:11 AM) Eosinophils # 0.3 K/CMM [0.0-0.5 K/CMM] (07/13/16 12:11 AM) Basophils # [0.0-0.2 0.1 K/CMM K/CMM] (07/13/16 12:11 AM) PT [12.0-14.7 14.6 seconds seconds] (07/13/16 12:11 AM) INR [0.85-1.17] 1.12 (07/13/16 12:11 AM) D-Dimer <0.22 ug/mL FEU *NA* (07/13/16 12:11 AM) PTT [22.9-35.8 30.9 seconds seconds] (07/13/16 12:11 AM) Immunizations No data available for this [...]
--- OUTSIDE RECORDS SUMMARY | 2018-06-25 11:34 | XMS REPORT | Summary of Care ---
Author Author [facility] Organization [facility] Address Unknown Phone Unavailable Encounter FAUSTO Baltazar(SHERYL) [id number] Date(s): 06/19/16 - 06/19/16 [facility] [address] [place] [address]- Discharge Diagnosis: Shortness of breath Discharge Diagnosis: Chest pain Discharge Disposition: Home or Self Care Attending Physician: Demetrio De Santiago MD Vital Signs 1 2 3 Most recent to oldest [Reference Range]: 162.56 cm (06/19/16 3:26 PM) Height 97.7 DegF (06/19/16 8:49 PM) 98.0 DegF (06/19/16 4:07 PM) 98.1 DegF (06/19/16 3:26 PM) Temperature Oral [96.4-99.1 DegF] 122/71 mmHg (06/19/16 8:49 PM) 126/74 mmHg (06/19/16 4:07 PM) 125/79 mmHg (06/19/16 3:26 PM) Blood Pressure [90-140/60-90 mmHg] 18 BRMIN (06/19/16 8:49 PM) 18 BRMIN (06/19/16 4:09 PM) 18 BRMIN (06/19/16 4:07 PM) Respiratory Rate [14-20 BRMIN] 60 bpm (06/19/16 8:49 PM) 82 bpm (06/19/16 4:07 PM) 70 bpm (06/19/16 3:26 PM) Peripheral Pulse Rate [60-100 bpm] 97.727 kg (06/19/16 3:26 PM) Weight 36.98 m2 (06/19/16 3:26 PM) Body Mass Index Problem List Condition Effective Dates Status Health Status Informant Asthma(Confirmed) Active Bronchitis(Confirmed Resolved ) Diabetes(Confirmed) Resolved Diverticulosis(Confi Resolved rmed) Depression(Confirmed Resolved ) Allergies, Adverse Reactions, Alerts Substance Reaction Severity Status Cipro Active ciprofloxacin Active erythromycin Active HYDROcodone Active hydrocodone Active nitrous oxide Active Phenergan Active predniSONE Active Stadol Active Medications albuterol-ipratropium 2.5-0.5 mg inhalation solution 3 mL, Route: NEB, Drug Form: SOLN, Dosing Weight 97.727, kg, ONCE, STAT, Start d ate: 06/19/16 19:22:00 CDT, Stop date: 06/19/16 19:22:00 CDT Notes: (Same as: Duoneb) Start Date: 06/19/16 Stop Date: 06/19/16 Status: Completed DuoNeb inhalation solution 3 ml, Route: NEB, Drug Form: SOLN, Dosing Weight 97.727, kg, PRN, PRN Respirator y Protocol, Start date: 06/19/16 15:29:00 CDT, Duration: 30 day, Stop date: 05/26 14:28:00 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 Frequency: 1-2 times per month. Smoking Status Former smoker; Type: Cigarettes; Ready to change: No; Concerns about tobacco use in household: No; Exposure to Tobacco Smoke None; Cigarette Smoking Last 365 Days No; Reg Smoking Cessation Counseling No Assessment and Plan No data available for this section
--- OUTSIDE RECORDS SUMMARY | 2018-06-25 11:34 | XMS REPORT ---
Author Author Dee Dee Haque Organization [employer] Address Unknown Phone Unavailable Care Team Providers Care Qlikview Developer Name Role Phone Dee Dee Haque Unavailable Encounters Encounter Location Date lab results [facility] December 09, 2015 Problems Problem Type Condition ICD-9 Code Onset Dates Condition Status Problem Obesity 278.00 Active Problem Asthma 493.90 Active Problem Type 2 diabetes mellitus without complications E11.9 Active Problem Fatty liver 571.8 Active Social History Social History Element Qualifiers Date Reported 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 Status , Is guyanese your primary language? Yes Sep 29, 2015 Flu Vaccine: . no Sep 29, 2015 children . 2 Sep 29, 2015 Depression Screening: . positive Sep 29, 2015 Tobacco Use: . Are you a: former smoker 2007Sep 29, 2015 Do you have pets? . Status: Yes, Type: dog(s) Sep 29, 2015 Last Colonoscopy: . 2013Sep 29, 2015 Marital Status: . Graham Tidwell Sep 29, 2015 Caffeine intake? . Status: Yes, What type: Tea Sep 29, 2015 Do you exercise? . Answer: Yes, Type: walking Sep 29, 2015 Last Bone Density: . never Sep 29, 2015 Do you drink alcohol? . Status: Yes, Type: Rarely 1 drink a month Sep 29, 2015 Summary Purpose [employer] Submission
--- OUTSIDE RECORDS SUMMARY | 2018-06-25 11:34 | XMS REPORT | Summary of Care ---
Author Author [facility] Organization [facility] Address Unknown Phone Unavailable Encounter FAUSTO Baltazar(SHERYL) [id number] Date(s): 09/16/16 - 09/16/16 [facility] [address] [place] [address]- Discharge Diagnosis: First trimester bleeding Discharge Diagnosis: Threatened miscarriage Discharge Disposition: Home or Self Care Attending Physician: Michelle Lorenzo MD Vital Signs Most recent to 1 2 oldest [Reference Range]: Height 157.48 cm (09/16/16 1:55 PM) Temperature Oral 98.2 DegF 98.6 DegF [96.4-99.1 DegF] (09/16/16 6:28 PM) (09/16/16 1:55 PM) Blood Pressure 110/58 mmHg 107/73 mmHg [90-140/60-90 mmHg] (09/16/16 6:28 PM) (09/16/16 1:55 PM) Respiratory Rate 16 BRMIN 18 BRMIN [14-20 BRMIN] (09/16/16 6:28 PM) (09/16/16 1:55 PM) Peripheral Pulse 72 bpm 69 bpm Rate [60-100 bpm] (09/16/16 6:28 PM) (09/16/16 1:55 PM) Weight 94.545 kg (09/16/16 1:55 PM) Body Mass Index 38.12 m2 (09/16/16 1:55 PM) Problem List Condition Effective Dates Status [...] # 14 cap, 0 Refill(s) Start Date: 09/16/16 Stop Date: 09/23/16 Status: Ordered Sodium Chloride 0.9% (Bolus) IV 1,000 mL, Infuse Over: 1 hr, Route: IV, ONCE, Priority: STAT, Dosing Weight 94.5 45 kg, Start date: 09/16/16 15:41:00 LENS SHAPER GRINDER, Duration: 1 doses or times, Stop date: 09/16/16 15:41:00 LENS SHAPER GRINDER Start Date: 09/16/16 Stop Date: 09/16/16 Status: Completed Results BLOOD BANK RESULTS Most recent to 1 2 oldest [Reference Range]: ABO/Rh B POS *Unknown* (09/16/16 3:10 PM) ELECTROLYTES Most recent to 1 2 oldest [Reference Range]: Sodium Lvl [135-145 134 mEq/L mEq/L] *LOW* (09/16/16 3:10 PM) Potassium Lvl 3.4 mEq/L [3.5-5.1 mEq/L] *LOW* (09/16/16 3:10 PM) Chloride Lvl [95-109 101 mEq/L mEq/L] (09/16/16 3:10 PM) CO2 [24-32 mEq/L] 23 mEq/L *LOW* (09/16/16 3:10 PM) AGAP [10.0-20.0 13.4 mEq/L mEq/L] (09/16/16 3:10 PM) CHEM PANEL Most recent to 1 2 oldest [Reference Range]: Creatinine Lvl 0.76 mg/dL [0.50-1.40 mg/dL] (09/16/16 3:10 PM) eGFR 105 mL/min/1.73m2 1 *NA* (09/16/16 3:10 PM) BUN [7-22 mg/dL] 9 mg/dL (09/16/16 3:10 PM) B/C Ratio [6-25] 12 (09/16/16 3:10 PM) Glucose Lvl [70-99 156 mg/dL mg/dL] *HI* (09/16/16 3:10 PM) Total Protein 7.7 g/dL [6.4-8.4 g/dL] (09/16/16 3:10 PM) Albumin Lvl [3.5-5.0 3.4 g/dL g/dL] *LOW* (09/16/16 3:10 PM) Globulin [2.7-4.2 4.3 g/dL g/dL] *HI* (09/16/16 3:10 PM) A/G Ratio [0.7-1.6] 0.8 (09/16/16 3:10 PM) Calcium Lvl 8.2 mg/dL [8.5-10.5 mg/dL] *LOW* (09/16/16 3:10 PM) ALT [0-65 unit/L] 25 unit/L (09/16/16 3:10 PM) AST [0-37 unit/L] 21 unit/L (09/16/16 3:10 PM) Alk Phos [39-136 77 unit/L unit/L] (09/16/16 3:10 PM) Bili Total [0.2-1.3 0.4 mg/dL mg/dL] (09/16/16 3:10 PM) 1Result Comment: The eGFR is calculated [...] be mul tiplied by the estimated BMI. ENDOCRINOLOGY Most recent to 1 2 oldest [Reference Range]: hCG Tot 4502 mIU/mL *NA* (09/16/16 3:10 PM) URINE CHEM Most recent to 1 2 oldest [Reference Range]: U Preg [Negative] Positive *ABN* (09/16/16 3:19 PM) URINE AND STOOL Most recent to 1 2 oldest [Reference Range]: UA Turbidity [Clear] Clear (09/16/16 3:19 PM) UA Color Ltyellow *NA* (09/16/16 3:19 PM) UA pH [5.0-8.0] 5.0 (09/16/16 3:19 PM) UA Spec Grav 1.015 [<=1.030] (09/16/16 3:19 PM) UA Glucose [Negative Negative mg/dL mg/dL] *NA* (09/16/16 3:19 PM) UA Blood [Negative] Moderate *ABN* (09/16/16 3:19 PM) UA Ketones [Negative 20 mg/dL mg/dL] *ABN* (09/16/16 3:19 PM) UA Protein [Negative Negative mg/dL mg/dL] (09/16/16 3:19 PM) UA Urobilinogen <=1.0 mg/dL [0.1-1.0 mg/dL] *NA* (09/16/16 3:19 PM) UA Bili [Negative] Negative *NA* (09/16/16 3:19 PM) UA Leuk Est Moderate [Negative] *ABN* (09/16/16 3:19 PM) UA Nitrite Negative [Negative] (09/16/16 3:19 PM) UA WBC [0-5 /HPF] 20 /HPF *HI* (09/16/16 3:19 PM) UA RBC [0-2 /HPF] 1 /HPF (09/16/16 3:19 PM) UA Bacteria [None Occasional /HPF Seen /HPF] *NA* (09/16/16 3:19 PM) UA Sq Epi [Few /LPF] Few /LPF *NA* (09/16/16 3:19 PM) UA Mucus [None Seen Few /LPF /LPF] *NA* (09/16/16 3:19 PM) HEMATOLOGY Most recent to 1 2 oldest [Reference Range]: WBC [3.7-10.4 K/CMM] 10.1 K/CMM (09/16/16 3:10 PM) RBC [4.20-5.40 5.22 M/CMM M/CMM] (09/16/16 3:10 PM) Hgb [12.0-16.0 g/dL] 13.5 g/dL (09/16/16 3:10 PM) Hct [36.0-48.0 %] 41.8 % (09/16/16 3:10 PM) MCV [80.0-98.0 fL] 80.2 fL (09/16/16 3:10 PM) MCH [27.0-31.0 pg] 25.8 pg *LOW* (09/16/16 3:10 PM) MCHC [32.0-36.0 32.2 g/dL g/dL] (09/16/16 3:10 PM) RDW [11.5-14.5 %] 14.9 % *HI* (09/16/16 3:10 PM) Platelet [133-450 320 K/CMM K/CMM] (09/16/16 3:10 PM) MPV [7.4-10.4 fL] 9.3 fL (09/16/16 3:10 PM) Segs [45.0-75.0 %] 62.6 % (09/16/16 3:10 PM) Lymphocytes 28.8 % [20.0-40.0 %] (09/16/16 3:10 PM) Monocytes [2.0-12.0 5.1 % %] (09/16/16 3:10 PM) Eosinophils [0.0-4.0 2.9 % %] (09/16/16 3:10 PM) Basophils [0.0-1.0 0.6 % %] (09/16/16 3:10 PM) Segs-Bands # 6.3 K/CMM [1.5-8.1 K/CMM] (09/16/16 3:10 PM) Lymphocytes # 2.9 K/CMM [1.0-5.5 K/CMM] (09/16/16 3:10 PM) Monocytes # [0.0-0.8 0.5 K/CMM K/CMM] (09/16/16 3:10 PM) Eosinophils # 0.3 K/CMM [0.0-0.5 K/CMM] (09/16/16 3:10 PM) Basophils # [0.0-0.2 0.1 K/CMM K/CMM] (09/16/16 3:10 PM) MOLECULAR DIAGNOSTIC Most recent to 1 2 oldest [Reference Range]: Source APTIMA Vaginal Vaginal (09/16/16 5:09 PM) (09/16/16 5:09 PM) N gonorrhea by Amp Negative Det (APTIMA) *NA* [Negative] (09/16/16 5:09 PM) C trachomatis by Amp Negative Det (APTIMA) *NA* [Negative] (09/16/16 5:09 PM) Immunizations No data available for this [...]
--- OUTSIDE RECORDS SUMMARY | 2018-06-25 11:34 | XMS REPORT | Summary of Care ---
Author Author [facility] Organization [facility] Address Unknown Phone Unavailable Encounter FAUSTO Baltazar(SHERYL) [id number] Date(s): 06/18/16 - 06/18/16 [facility] [address] [place] [address]- [phone] Discharge Diagnosis: Anxiety Discharge Diagnosis: Asthma Discharge Disposition: Home or Self Care Attending Physician: Ángela Gloria DO Vital Signs 1 2 3 Most recent to oldest [Reference Range]: 162.56 cm (06/18/16 8:15 PM) Height 98.7 DegF (06/18/16 11:03 PM) 98.3 DegF (06/18/16 9:00 PM) 98.2 DegF (06/18/16 8:15 PM) Temperature Oral [96.4-99.1 DegF] 120/51 mmHg (06/18/16 11:03 PM) 127/75 mmHg (06/18/16 9:00 PM) 116/81 mmHg (06/18/16 8:15 PM) Blood Pressure [90-140/60-90 mmHg] 16 BRMIN (06/18/16 11:03 PM) 16 BRMIN (06/18/16 10:18 PM) 22 BRMIN *HI* (06/18/16 9:00 PM) Respiratory Rate [14-20 BRMIN] 82 bpm (06/18/16 8:15 PM) Peripheral Pulse Rate [60-100 bpm] 97.727 kg (06/18/16 8:15 PM) Weight 36.98 m2 (06/18/16 8:15 PM) Body Mass Index Problem List Condition [...] 97.727, kg, ONCE, STAT, Start d ate: 06/18/16 21:39:00 CDT, Stop date: 06/18/16 21:39:00 CDT Notes: (Same as: Duoneb) Start Date: 06/18/16 Stop Date: 06/18/16 Status: Completed Saline Flush 0.9% 10 mL, Route: IVP, Drug Form: INJ, Dosing Weight 97.727, kg, PRN, PRN Line Flush , Start date: 06/18/16 20:18:00 CDT, Duration: 30 day, Stop date: 07/18/16 19:17 :00 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 Notes: (Same as: BD Posiflush) Start Date: 06/18/16 Stop Date: 06/19/16 Status: Discontinued Results ELECTROLYTES Most recent to 1 oldest [Reference Range]: Sodium Lvl [135-145 137 mEq/L mEq/L] (06/18/16 10:14 PM) Potassium Lvl 3.7 mEq/L [3.5-5.1 mEq/L] (06/18/16 10:14 PM) Chloride Lvl [95-109 105 mEq/L mEq/L] (06/18/16 10:14 PM) CO2 [24-32 mEq/L] 25 mEq/L (06/18/16 10:14 PM) AGAP [10.0-20.0 10.7 mEq/L mEq/L] (06/18/16 10:14 PM) CHEM PANEL Most recent to 1 oldest [Reference Range]: Creatinine Lvl 0.78 mg/dL [0.50-1.40 mg/dL] (06/18/16 10:14 PM) eGFR 102 mL/min/1.73m2 1 *NA* (06/18/16 10:14 PM) BUN [7-22 mg/dL] 17 mg/dL (06/18/16 10:14 PM) B/C Ratio [6-25] 22 (06/18/16 10:14 PM) Glucose Lvl [70-99 215 mg/dL mg/dL] *HI* (06/18/16 10:14 PM) Total Protein 7.5 g/dL [6.4-8.4 g/dL] (06/18/16 10:14 PM) Albumin Lvl [3.5-5.0 3.6 g/dL g/dL] (06/18/16 10:14 PM) Globulin [2.7-4.2 3.9 g/dL g/dL] (06/18/16 10:14 PM) A/G Ratio [0.7-1.6] 0.9 (06/18/16 10:14 PM) Calcium Lvl 8.6 mg/dL [8.5-10.5 mg/dL] (06/18/16 10:14 PM) ALT [0-65 unit/L] 34 unit/L (06/18/16 10:14 PM) AST [0-37 unit/L] 18 unit/L (06/18/16 10:14 PM) Alk Phos [39-136 82 unit/L unit/L] (06/18/16 10:14 PM) Bili Total [0.2-1.3 0.2 mg/dL mg/dL] (06/18/16 10:14 PM) 1Result Comment: The eGFR is calculated [...] 1 oldest [Reference Range]: Total CK [12-191 61 unit/L unit/L] (06/18/16 10:14 PM) CK MB [0.5-3.6 0.6 ng/mL ng/mL] (06/18/16 10:14 PM) CK MB Index 1.0 [0.0-2.5] (06/18/16 10:14 PM) Troponin-I <0.02 ng/mL [0.00-0.40 ng/mL] (06/18/16 10:14 PM) ENDOCRINOLOGY Most recent to 1 oldest [Reference Range]: S Preg [Negative] Negative *NA* (06/18/16 10:14 PM) URINE AND STOOL Most recent to 1 oldest [Reference Range]: UA Turbidity [Clear] Clear (06/18/16 8:33 PM) UA Color Ltyellow *NA* (06/18/16 8:33 PM) UA pH [5.0-8.0] 6.0 (06/18/16 8:33 PM) UA Spec Grav 1.026 [<=1.030] (06/18/16 8:33 PM) UA Glucose [Negative 500 mg/dL mg/dL] *ABN* (06/18/16 8:33 PM) UA Blood [Negative] Small *ABN* (06/18/16 8:33 PM) UA Ketones [Negative Negative mg/dL mg/dL] *NA* (06/18/16 8:33 PM) UA Protein [Negative Negative mg/dL mg/dL] (06/18/16 8:33 PM) UA Urobilinogen <=1.0 mg/dL [0.1-1.0 mg/dL] *NA* (06/18/16 8:33 PM) UA Bili [Negative] Negative *NA* (06/18/16 8:33 PM) UA Leuk Est Negative [Negative] (06/18/16 8:33 PM) UA Nitrite Negative [Negative] (06/18/16 8:33 PM) UA WBC [0-5 /HPF] 1 /HPF (06/18/16 8:33 PM) UA RBC [0-2 /HPF] 1 /HPF (06/18/16 8:33 PM) UA Sq Epi [Few /LPF] Occasional /LPF *NA* (06/18/16 8:33 PM) HEMATOLOGY Most recent to 1 oldest [Reference Range]: WBC [3.7-10.4 K/CMM] 11.9 K/CMM *HI* (06/18/16 10:14 PM) RBC [4.20-5.40 4.71 M/CMM M/CMM] (06/18/16 10:14 PM) Hgb [12.0-16.0 g/dL] 11.9 g/dL *LOW* (06/18/16 10:14 PM) Hct [36.0-48.0 %] 37.4 % (06/18/16 10:14 PM) MCV [80.0-98.0 fL] 79.6 fL *LOW* (06/18/16 10:14 PM) MCH [27.0-31.0 pg] 25.4 pg *LOW* (06/18/16 10:14 PM) MCHC [32.0-36.0 31.9 g/dL g/dL] *LOW* (06/18/16 10:14 PM) RDW [11.5-14.5 %] 14.7 % *HI* (06/18/16 10:14 PM) Platelet [133-450 326 K/CMM K/CMM] (06/18/16 10:14 PM) MPV [7.4-10.4 fL] 9.0 fL (06/18/16 10:14 PM) Segs [45.0-75.0 %] 61.1 % (06/18/16 10:14 PM) Lymphocytes 28.2 % [20.0-40.0 %] (06/18/16 10:14 PM) Monocytes [2.0-12.0 6.3 % %] (06/18/16 10:14 PM) Eosinophils [0.0-4.0 3.0 % %] (06/18/16 10:14 PM) Basophils [0.0-1.0 1.4 % %] *HI* (06/18/16 10:14 PM) Segs-Bands # 7.3 K/CMM [1.5-8.1 K/CMM] (06/18/16 10:14 PM) Lymphocytes # 3.4 K/CMM [1.0-5.5 K/CMM] (06/18/16 10:14 PM) Monocytes # [0.0-0.8 0.8 K/CMM K/CMM] (06/18/16 10:14 PM) Eosinophils # 0.4 K/CMM [0.0-0.5 K/CMM] (06/18/16 10:14 PM) Basophils # [0.0-0.2 0.2 K/CMM K/CMM] (06/18/16 10:14 PM) Immunizations No data available for this [...]
--- OUTSIDE RECORDS SUMMARY | 2018-06-25 11:34 | XMS REPORT ---
Author Author [facility] Address Unknown Phone Unavailable Care Team Providers Care [employer] Transportation Supervisor Name Role Phone Pallavi LLANOS Unavailable Unavailable Payers Payer Name Policy Type Policy Number Effective Date Expiration Date Problems This patient has no known problems. Allergies, Adverse Reactions, Alerts Allergy Name Allergy Type Status Severity Reaction(s) Onset Date Inactive Date Treating Clinician Comments aspirin DA Active SV 2017-07-20 00:00:00 ibuprofen DA Active MO 2017-07-10 00:00:00 butorphanol tartrate DA Active SV 2017-06-11 00:00:00 nitrous oxide DA Active U 2017-06-11 00:00:00 hydrocodone DA Active [place] 2017-06-11 00:00:00 erythromycin base DA Active TX 2017-06-11 00:00:00 ciprofloxacin DA Active TX 2017-06-11 00:00:00 promethazine DA Active SV 2017-06-11 00:00:00 Medications This patient has no known medications. Results Test Description Test Time Test Comments Text Results Atomic Results Result Comments CT BRAIN WO 2018-06-16 15:40:00 [facility] [address] [address] Patient Name: ROXANA HUERTA MR #: [id number] : 1985 Age/Sex: 32/F Req #: [id number] Adm Physician: Ordered by: RISHABH GARCIA DERMATOPATHOLOGIST Report #: [id number] Location: ER Room/Bed: Procedure: [id number] CT/CT BRAIN WO Exam Date: 06/16/18 Exam Time: 1515 REPORT STATUS: Signed History:Headaches Comparison studies: None Technique: Axial images were obtained from the skull base to the vertex. Coronal and sagittal reconstructions obtained from the axial data. Dose modulation, iterative reconstruction, and/or weight based adjustment of the mA/kV was utilized to reduce the radiation dose to as low as reasonably achievable. Findings: Scalp/skull: No abnormalities. No fractures, blastic or lytic lesions. Extra-axial spaces: No masses. No fluid collections. Brain sulci: Appropriate for age. Ventricles: Normal in size and configuration. No hydrocephalus. Parenchyma: No abnormal densities. No masses, hemorrhage, acute or chronic cortical vascular insults. Sellar/suprasellar region: No abnormalities Craniocervical junction: Patent foramen magnum. No Chiari one malformation. IMPRESSION: No abnormalities . Signed by: DR Ronen Bailey M.D. on 06/16/2018 3:42 PM Dictated By: RONEN HEWITT MD 154 Transcribed By: LC on 06/16/181541 COPY TO: RISHABH GARCIA NP
--- OUTSIDE RECORDS SUMMARY | 2018-06-25 11:34 | XMS REPORT | Summary of Care ---
Author Author [facility] Organization [facility] Address Unknown Phone Unavailable Encounter FAUSTO Baltazar(SHERYL) [id number] Date(s): 07/10/16 - 07/10/16 [facility] [address] [place] [address]- [phone] Discharge Disposition: Elopement Attending Physician: Kate Beal MD Vital Signs Most recent to 1 oldest [Reference Range]: Height 162.56 cm (07/10/16 12:31 PM) Temperature Oral 98.3 DegF [96.4-99.1 DegF] (07/10/16 12:31 PM) Blood Pressure 114/75 mmHg [90-140/60-90 mmHg] (07/10/16 12:31 PM) Respiratory Rate 18 BRMIN [14-20 BRMIN] (07/10/16 12:31 PM) Peripheral Pulse 74 bpm Rate [60-100 bpm] (07/10/16 12:31 PM) Weight 97.727 kg (07/10/16 12:31 PM) Body Mass Index 36.98 m2 (07/10/16 12:31 PM) Problem List Condition Effective Dates Status Health Status Informant Asthma(Confirmed) Active Bronchitis(Confirmed Resolved ) Diabetes(Confirmed) Resolved Diverticulosis(Confi Resolved rmed) Depression(Confirmed Resolved ) Allergies, Adverse Reactions, Alerts Substance Reaction Severity Status Cipro Active ciprofloxacin Active erythromycin Active HYDROcodone Active hydrocodone Active nitrous oxide Active Phenergan Active predniSONE Active Stadol Active Medications No data available for this section Results URINE CHEM Most recent to 1 oldest [Reference Range]: U Preg [Negative] Negative (07/10/16 1:06 PM) Immunizations No data available for this [...]
--- OUTSIDE RECORDS SUMMARY | 2018-06-25 11:34 | XMS REPORT | Summary of Care ---
Author Author [facility] Organization [facility] Address Unknown Phone Unavailable Encounter FAUSTO Baltazar(SHERYL) [id number] Date(s): 07/07/16 - 07/07/16 [facility] [address] [place] [address]- Discharge Diagnosis: Near syncope Discharge Diagnosis: Anemia Discharge Diagnosis: Acute hypokalemia Discharge Diagnosis: Chest pain Discharge Disposition: Home or Self Care Attending Physician: Ángela Gloria DO Vital Signs Most recent to 1 2 oldest [Reference Range]: Height 162.56 cm (07/07/16 4:47 PM) Temperature Oral 97.7 DegF 98.0 DegF [96.4-99.1 DegF] (07/07/16 7:15 PM) (07/07/16 4:47 PM) Blood Pressure 104/44 mmHg 120/85 mmHg [90-140/60-90 mmHg] (07/07/16 7:15 PM) (07/07/16 4:47 PM) Respiratory Rate 14 BRMIN 16 BRMIN [14-20 BRMIN] (07/07/16 7:15 PM) (07/07/16 4:47 PM) Peripheral Pulse 77 bpm 63 bpm Rate [60-100 bpm] (07/07/16 7:15 PM) (07/07/16 4:47 PM) Weight 97.727 kg (07/07/16 4:47 PM) Body Mass Index 36.98 m2 (07/07/16 4:47 PM) Problem List Condition Effective Dates Status Health Status Informant Asthma(Confirmed) Active Bronchitis(Confirmed Resolved ) Diabetes(Confirmed) Resolved Diverticulosis(Confi Resolved rmed) Depression(Confirmed Resolved ) Allergies, Adverse Reactions, Alerts Substance Reaction Severity Status Cipro Active ciprofloxacin Active erythromycin Active HYDROcodone Active hydrocodone Active nitrous oxide Active Phenergan Active predniSONE Active Stadol Active Medications ferrous sulfate 325 mg oral enteric coated tablet 325 mg=1 tab, PO, TID, Start with 1 tab daily x 3 days, advance as tolerate, use stool softners and laxatives as needed for constipation, # 90 tab, 3 Refill(s) Start Date: 07/07/16 Status: Ordered potassium chloride 40 mEq, Route: PO, Drug form: ERTAB, ONCE, Dosing Weight 97.727, kg, Priority: S TAT, Start date: 07/07/16 17:47:00 CDT, Stop date: 07/07/16 17:47:00 CDT Start Date: 07/07/16 Stop Date: 07/07/16 Status: Completed Saline Flush 0.9% 10 mL, Route: IVP, Drug Form: INJ, Dosing Weight 97.727, kg, PRN, PRN Line Flush , Start date: 07/07/16 16:52:00 CDT, Duration: 30 day, Stop date: 08/06/16 15:51 :00 CURB MACHINE OPERATOR Notes: (Same as: BD Posiflush) Start Date: 07/07/16 Stop Date: 07/07/16 Status: Discontinued Sodium Chloride 0.9% (Bolus) IV 500 mL, 500 ml/hr, Infuse Over: 1 hr, Route: IV, ONCE, Priority: STAT, Dosing We ight 97.727 kg, Start date: 07/07/16 17:55:00 CDT, Duration: 1 doses or times, S top date: 07/07/16 17:55:00 CDT Start Date: 07/07/16 Stop Date: 07/07/16 Status: Completed Results ELECTROLYTES Most recent to 1 oldest [Reference Range]: Sodium Lvl [135-145 137 mEq/L mEq/L] (07/07/16 5:15 PM) Potassium Lvl 3.2 mEq/L [3.5-5.1 mEq/L] *LOW* (07/07/16 5:15 PM) Chloride Lvl [95-109 106 mEq/L mEq/L] (07/07/16 5:15 PM) CO2 [24-32 mEq/L] 22 mEq/L *LOW* (07/07/16 5:15 PM) AGAP [10.0-20.0 12.2 mEq/L mEq/L] (07/07/16 5:15 PM) CHEM PANEL Most recent to 1 oldest [Reference Range]: Creatinine Lvl 0.77 mg/dL [0.50-1.40 mg/dL] (07/07/16 5:15 PM) eGFR 103 mL/min/1.73m2 1 *NA* (07/07/16 5:15 PM) BUN [7-22 mg/dL] 18 mg/dL (07/07/16 5:15 PM) B/C Ratio [6-25] 23 (07/07/16 5:15 PM) Glucose Lvl [70-99 187 mg/dL mg/dL] *HI* (07/07/16 5:15 PM) Total Protein 7.1 g/dL [6.4-8.4 g/dL] (07/07/16 5:15 PM) Albumin Lvl [3.5-5.0 3.3 g/dL g/dL] *LOW* (07/07/16 5:15 PM) Globulin [2.7-4.2 3.8 g/dL g/dL] (07/07/16 5:15 PM) A/G Ratio [0.7-1.6] 0.9 (07/07/16 5:15 PM) Calcium Lvl 8.4 mg/dL [8.5-10.5 mg/dL] *LOW* (07/07/16 5:15 PM) ALT [0-65 unit/L] 30 unit/L (07/07/16 5:15 PM) AST [0-37 unit/L] 20 unit/L (07/07/16 5:15 PM) Alk Phos [39-136 83 unit/L unit/L] (07/07/16 5:15 PM) Bili Total [0.2-1.3 0.2 mg/dL mg/dL] (07/07/16 5:15 PM) 1Result Comment: The eGFR is calculated [...] 1 oldest [Reference Range]: Total CK [12-191 51 unit/L unit/L] (07/07/16 5:15 PM) CK MB [0.5-3.6 0.7 ng/mL ng/mL] (07/07/16 5:15 PM) CK MB Index 1.4 [0.0-2.5] (07/07/16 5:15 PM) Troponin-I <0.02 ng/mL [0.00-0.40 ng/mL] (07/07/16 5:15 PM) URINE AND STOOL Most recent to 1 oldest [Reference Range]: UA Turbidity [Clear] Marked *ABN* (07/07/16 5:15 PM) UA Color Red *NA* (07/07/16 5:15 PM) UA pH [5.0-8.0] 6.0 (07/07/16 5:15 PM) UA Spec Grav 1.024 [<=1.030] (07/07/16 5:15 PM) UA Glucose [Negative 50 mg/dL mg/dL] *ABN* (07/07/16 5:15 PM) UA Blood [Negative] Large *ABN* (07/07/16 5:15 PM) UA Ketones [Negative Negative mg/dL mg/dL] *NA* (07/07/16 5:15 PM) UA Protein [Negative 100 mg/dL mg/dL] *ABN* (07/07/16 5:15 PM) UA Urobilinogen <=1.0 mg/dL [0.1-1.0 mg/dL] *NA* (07/07/16 5:15 PM) UA Bili [Negative] Negative *NA* (07/07/16 5:15 PM) UA Leuk Est Negative [Negative] (07/07/16 5:15 PM) UA Nitrite Negative [Negative] (07/07/16 5:15 PM) UA WBC [0-5 /HPF] 25 /HPF *HI* (07/07/16 5:15 PM) UA RBC [0-2 /HPF] >182 /HPF *HI* (07/07/16 5:15 PM) UA Sq Epi None Seen *NA* (07/07/16 5:15 PM) UA Mucus [None Seen Few /LPF /LPF] *NA* (07/07/16 5:15 PM) HEMATOLOGY Most recent to 1 oldest [Reference Range]: WBC [3.7-10.4 K/CMM] 11.3 K/CMM *HI* (07/07/16 5:15 PM) RBC [4.20-5.40 4.57 M/CMM M/CMM] (07/07/16 5:15 PM) Hgb [12.0-16.0 g/dL] 11.7 g/dL *LOW* (07/07/16 5:15 PM) Hct [36.0-48.0 %] 36.3 % (07/07/16 5:15 PM) MCV [80.0-98.0 fL] 79.3 fL *LOW* (07/07/16 5:15 PM) MCH [27.0-31.0 pg] 25.6 pg *LOW* (07/07/16 5:15 PM) MCHC [32.0-36.0 32.2 g/dL g/dL] (07/07/16 5:15 PM) RDW [11.5-14.5 %] 14.6 % *HI* (07/07/16 5:15 PM) Platelet [133-450 316 K/CMM K/CMM] (07/07/16 5:15 PM) MPV [7.4-10.4 fL] 8.8 fL (07/07/16 5:15 PM) Segs [45.0-75.0 %] 62.8 % (07/07/16 5:15 PM) Lymphocytes 29.0 % [20.0-40.0 %] (07/07/16 5:15 PM) Monocytes [2.0-12.0 5.1 % %] (07/07/16 5:15 PM) Eosinophils [0.0-4.0 2.9 % %] (07/07/16 5:15 PM) Basophils [0.0-1.0 0.2 % %] (07/07/16 5:15 PM) Segs-Bands # 7.1 K/CMM [1.5-8.1 K/CMM] (07/07/16 5:15 PM) Lymphocytes # 3.3 K/CMM [1.0-5.5 K/CMM] (07/07/16 5:15 PM) Monocytes # [0.0-0.8 0.6 K/CMM K/CMM] (07/07/16 5:15 PM) Eosinophils # 0.3 K/CMM [0.0-0.5 K/CMM] (07/07/16 5:15 PM) PT [12.0-14.7 14.0 seconds seconds] (07/07/16 5:15 PM) INR [0.85-1.17] 1.06 (07/07/16 5:15 PM) PTT [22.9-35.8 29.9 seconds seconds] (07/07/16 5:15 PM) Immunizations No data available for this [...]
--- OUTSIDE RECORDS SUMMARY | 2018-06-25 11:34 | XMS REPORT | Summary of Care ---
Author Author [facility] Organization [facility] Address Unknown Phone Unavailable Encounter FAUSTO Baltazar(SHERYL) [id number] Date(s): 09/21/16 - 09/21/16 [facility] [address] [place] [address]- Discharge Diagnosis: Acute UTI Discharge Diagnosis: Abdominal pain affecting Discharge Disposition: Home or Self Care Attending Physician: Nemo Santiago MD Vital Signs Most recent to 1 2 oldest [Reference Range]: Temperature Oral 97.8 DegF 97.4 DegF [96.4-99.1 DegF] (09/21/16 3:03 PM) (09/21/16 12:11 PM) Blood Pressure 121/61 mmHg 117/69 mmHg [90-140/60-90 mmHg] (09/21/16 3:03 PM) (09/21/16 12:11 PM) Respiratory Rate 16 BRMIN 16 BRMIN [14-20 BRMIN] (09/21/16 3:03 PM) (09/21/16 12:11 PM) Peripheral Pulse 83 bpm 72 bpm Rate [60-100 bpm] (09/21/16 3:03 PM) (09/21/16 12:11 PM) Weight 93.636 kg (09/21/16 12:11 PM) Problem List Condition Effective Dates Status [...] Dosing Weight 93.636, kg, ONCE, STAT, Start d ate: 09/21/16 12:44:00 DENTAL PRACTICE MANAGER, Stop date: 09/21/16 12:44:00 DENTAL PRACTICE MANAGER Notes: (Same as: Duoneb) Start Date: 09/21/16 Stop Date: 09/21/16 Status: Completed cefTRIAXone + sodium chloride 0.9% INJ 100 mL 1 gm, Route: IVPB, ONCE, Dosing Weight 93.636, kg, Priority: STAT, Start date: 0 09/21/16 13:46:00 DENTAL PRACTICE MANAGER, Stop date: 09/21/16 13:46:00 DENTAL PRACTICE MANAGER Notes: (Same As: Rocephin).Use with 100 mL NS and infuse over 30 min MEDICA TION WASTE Product Size: 1000 mgProduct Wasted: ___ mg Start Date: 09/21/16 Stop Date: 09/21/16 Status: Completed Saline Flush 0.9% 10 mL, Route: IVP, Drug Form: INJ, Dosing Weight 93.636, kg, PRN, PRN Line Flush , Start date: 09/21/16 12:43:00 DENTAL PRACTICE MANAGER, Duration: 30 day, Stop date: 10/21/16 12:42 :00 DENTAL PRACTICE MANAGER Notes: (Same as: BD Posiflush) Start Date: 09/21/16 Stop Date: 09/21/16 Status: Discontinued Sodium Chloride 0.9% (Bolus) IV 1,000 mL, 1,000 ml/hr, Infuse Over: 1 hr, Route: IV, 1,000, Drug form: INJ, ONCE , Priority: STAT, Dosing Weight 93.636 kg, Start date: 09/21/16 12:43:00 DENTAL PRACTICE MANAGER, Du ration: 1 doses or times, Stop date: 09/21/16 12:43:00 DENTAL PRACTICE MANAGER Start Date: 09/21/16 Stop Date: 09/21/16 Status: Completed Tylenol 650 mg, 2 tab, Route: PO, Drug form: TAB, ONCE, Dosing Weight 93.636, kg, Priori ty: STAT, Start date: 09/21/16 14:28:00 DENTAL PRACTICE MANAGER, Stop date: 09/21/16 14:28:00 DENTAL PRACTICE MANAGER Notes: Do not exceed 4 gm/day. (Same as: Tylenol) Start Date: 09/21/16 Stop Date: 09/21/16 Status: Completed Results ELECTROLYTES Most recent to 1 oldest [Reference Range]: Sodium Lvl [135-145 136 mEq/L mEq/L] (09/21/16 1:09 PM) Potassium Lvl 3.1 mEq/L [3.5-5.1 mEq/L] *LOW* (09/21/16 1:09 PM) Chloride Lvl [95-109 103 mEq/L mEq/L] (09/21/16 1:09 PM) CO2 [24-32 mEq/L] 20 mEq/L *LOW* (09/21/16 1:09 PM) AGAP [10.0-20.0 16.1 mEq/L mEq/L] (09/21/16 1:09 PM) CHEM PANEL Most recent to 1 oldest [Reference Range]: Creatinine Lvl 0.78 mg/dL [0.50-1.40 mg/dL] (09/21/16 1:09 PM) eGFR 101 mL/min/1.73m2 1 *NA* (09/21/16 1:09 PM) BUN [7-22 mg/dL] 13 mg/dL (09/21/16 1:09 PM) B/C Ratio [6-25] 17 (09/21/16 1:09 PM) Glucose Lvl [70-99 210 mg/dL mg/dL] *HI* (09/21/16 1:09 PM) Total Protein 7.3 g/dL [6.4-8.4 g/dL] (09/21/16 1:09 PM) Albumin Lvl [3.5-5.0 3.3 g/dL g/dL] *LOW* (09/21/16 1:09 PM) Globulin [2.7-4.2 4.0 g/dL g/dL] (09/21/16 1:09 PM) A/G Ratio [0.7-1.6] 0.8 (09/21/16 1:09 PM) Calcium Lvl 8.3 mg/dL [8.5-10.5 mg/dL] *LOW* (09/21/16 1:09 PM) ALT [0-65 unit/L] 23 unit/L (09/21/16 1:09 PM) AST [0-37 unit/L] 11 unit/L (09/21/16 1:09 PM) Alk Phos [39-136 74 unit/L unit/L] (09/21/16 1:09 PM) Bili Total [0.2-1.3 0.2 mg/dL mg/dL] (09/21/16 1:09 PM) 1Result Comment: The eGFR is calculated [...] estimated BMI. ENDOCRINOLOGY Most recent to 1 oldest [Reference Range]: [place] [address] mIU/mL *NA* (09/21/16 1:09 PM) URINE AND STOOL Most recent to 1 oldest [Reference Range]: UA Turbidity [Clear] Slight *ABN* (09/21/16 1:09 PM) UA Color [Yellow] Light Yellow *NA* (09/21/16 1:09 PM) UA pH [5.0-8.0] 6.0 (09/21/16 1:09 PM) UA Spec Grav 1.018 [<=1.030] (09/21/16 1:09 PM) UA Glucose [Negative 500 mg/dL mg/dL] *ABN* (09/21/16 1:09 PM) UA Blood [Negative] Small *ABN* (09/21/16 1:09 PM) UA Ketones [Negative 20 mg/dL mg/dL] *ABN* (09/21/16 1:09 PM) UA Protein [Negative Negative mg/dL mg/dL] (09/21/16 1:09 PM) UA Urobilinogen <=1.0 mg/dL [0.1-1.0 mg/dL] *NA* (09/21/16 1:09 PM) UA Bili [Negative] Negative *NA* (09/21/16 1:09 PM) UA Leuk Est Moderate [Negative] *ABN* (09/21/16 1:09 PM) UA Nitrite Negative [Negative] (09/21/16 1:09 PM) UA WBC [0-5 /HPF] 56 /HPF *HI* (09/21/16 1:09 PM) UA RBC [0-2 /HPF] 3 /HPF *HI* (09/21/16 1:09 PM) UA Bacteria [None Few /HPF Seen /HPF] *NA* (09/21/16 1:09 PM) UA Sq Epi [Few /LPF] Many /LPF *ABN* (09/21/16 1:09 PM) UA Mucus [None Seen Few /LPF /LPF] *NA* (09/21/16 1:09 PM) HEMATOLOGY Most recent to 1 oldest [Reference Range]: WBC [3.7-10.4 K/CMM] 10.4 K/CMM (09/21/16 1:09 PM) RBC [4.20-5.40 4.74 M/CMM M/CMM] (09/21/16 1:09 PM) Hgb [12.0-16.0 g/dL] 12.3 g/dL (09/21/16 1:09 PM) Hct [36.0-48.0 %] 37.8 % (09/21/16 1:09 PM) MCV [80.0-98.0 fL] 79.8 fL *LOW* (09/21/16 1:09 PM) MCH [27.0-31.0 pg] 26.0 pg *LOW* (09/21/16 1:09 PM) MCHC [32.0-36.0 32.6 g/dL g/dL] (09/21/16 1:09 PM) RDW [11.5-14.5 %] 14.8 % *HI* (09/21/16 1:09 PM) Platelet [133-450 303 K/CMM K/CMM] (09/21/16 1:09 PM) MPV [7.4-10.4 fL] 9.4 fL (09/21/16 1:09 PM) Segs [45.0-75.0 %] 67.1 % (09/21/16 1:09 PM) Lymphocytes 22.2 % [20.0-40.0 %] (09/21/16 1:09 PM) Monocytes [2.0-12.0 6.0 % %] (09/21/16 1:09 PM) Eosinophils [0.0-4.0 1.8 % %] (09/21/16 1:09 PM) Basophils [0.0-1.0 2.9 % %] *HI* (09/21/16 1:09 PM) Segs-Bands # 7.0 K/CMM [1.5-8.1 K/CMM] (09/21/16 1:09 PM) Lymphocytes # 2.3 K/CMM [1.0-5.5 K/CMM] (09/21/16 1:09 PM) Monocytes # [0.0-0.8 0.6 K/CMM K/CMM] (09/21/16 1:09 PM) Eosinophils # 0.2 K/CMM [0.0-0.5 K/CMM] (09/21/16 1:09 PM) Basophils # [0.0-0.2 0.3 K/CMM K/CMM] *HI* (09/21/16 1:09 PM) Immunizations No data available for this [...]
== END 2018-06-16 16:38 | disposition home or self-care (01) ==
LOC: ER 13:51
DX: G43.909 Migraine, unspecified, not intractable, without status migrainosus (principal); Z76.0 Encounter for issue of repeat prescription; E11.9 Type 2 diabetes mellitus without complications; J45.909 Unspecified asthma, uncomplicated
CPT/HCPCS: 36415; 70450; 80048; 81001; 83735; 84702; 85025; 99284; J1200; J1885; J7030

== ENCOUNTER 2018-07-05 20:12 | Emergency (ER) | payer SELFPAY ==
[~2018-07-05] VITALS: Ht 157.5 cm; Wt 89.8 kg
[~2018-07-05 20:12] MED LIST: FIORINAL 50-321 EACH PO; METFORMIN HCL500 MG PO
[2018-07-05] MEDS ORDERED: PANTOPRAZOLE 40 MG 10ML VIAL IV STA (20:44)
[2018-07-05] MEDS ORDERED: SODIUM CHLORIDE 0.9% 1000ML 1,000 ML IV ONE (20:45)
[2018-07-05] MEDS ORDERED: DICYCLOMINE HCL 20 MG/2 ML VIAL IM ONE (20:45)
[2018-07-05 21:32] LABS: BASOPHILS % 0.2 % (0.0-1.0); EOSINOPHILS # (AUTO) 0.2 (0.0-0.4); EOSINOPHILS % 1.2 % (0.0-6.0); HEMATOCRIT 37.8 % (34.2-44.1); HEMOGLOBIN 11.8 g/dL (12.0-16.0); LYMPHOCYTES # (AUTO) 1.7 (1.0-3.2); LYMPHOCYTES % 14.1 % (18.0-39.1); MEAN CORPUSCULAR HEMOGLOBIN 24.5 pg (28-32); MEAN CORPUSCULAR HGB CONC 31.2 g/dL (31-35); MEAN CORPUSCULAR VOLUME 78.4 fL (81-99); MONOCYTES # (AUTO) 0.5 (0.2-0.8); MONOCYTES % 4.3 % (4.4-11.3); NEUTROPHILS # (AUTO) 9.8 (2.1-6.9); NEUTROPHILS % 79.7 % (38.7-80.0); PLATELET COUNT 350 x10e3/uL (140-360); RED BLOOD COUNT 4.82 x10e6/uL (3.6-5.1); RED CELL DISTRIBUTION WIDTH 14.4 % (11.7-14.4)
[2018-07-05 21:47] LABS: CLARITY,URINE HAZY (CLEAR); COLOR,URINE YELLOW (YELLOW)
[2018-07-05 21:48] LABS: BILIRUBIN,URINE NEGATIVE (NEGATIVE); KETONES,URINE 1+ (NEGATIVE); LEUKOCYTE ESTERASE ,URINE NEGATIVE (NEGATIVE); NITRITE,URINE NEGATIVE (NEGATIVE); PROTEIN,URINE DIPSTICK NEGATIVE (NEGATIVE); URINE UROBILINOGEN 0.2 mg/dL (0.2 - 1)
[2018-07-05 21:53] LABS: BACTERIA,URINE FEW /HPF; EPITHELIAL CELLS,URINE MODERATE /LPF; WBC,URINE (MAN) 0-5 /HPF (0-5)
[2018-07-05 21:55] LABS: ALANINE AMINOTRANSFERASE 16 IU/L (0-55); ALBUMIN 3.8 g/dL (3.5-5.0); ALBUMIN/GLOBULIN RATIO 1.1 (0.8-2.0); ALKALINE PHOSPHATASE 84 IU/L (40-150); AMYLASE 23 U/L (25-125); ANION GAP 13.5 mmol/L (8-16); BLOOD UREA NITROGEN 14 mg/dL (7-26); BUN/CREATININE RATIO 18 (6-25); CALCIUM 9.2 mg/dL (8.4-10.2); CARBON DIOXIDE 19 mmol/L (22-29); CHLORIDE 104 mmol/L (98-107); CREATININE, SERUM 0.76 mg/dL (0.57-1.11); EST GLOMERULAR FILTRATION RATE > 60 ML/MIN (60-); GLUCOSE 166 mg/dL (74-118); LIPASE 23 U/L (8-78); POTASSIUM 3.5 mmol/L (3.5-5.1); SODIUM 133 mmol/L (136-145)
[2018-07-05 23:03] VITALS: BP 103/55
== END 2018-07-05 23:07 | disposition home or self-care (01) ==
LOC: ER 20:12
DX: R19.7 Diarrhea, unspecified (principal); K52.9 Noninfective gastroenteritis and colitis, unspecified; A08.4 Viral intestinal infection, unspecified
CPT/HCPCS: 36415; 80053; 81001; 82150; 83690; 85025; 99284; J0500; J7030

== ENCOUNTER 2019-05-16 15:48 | Emergency (ER) | payer OTHER ==
[~2019-05-16] VITALS: Ht 157.5 cm; Wt 89.8 kg
--- OUTSIDE RECORDS SUMMARY | 2019-05-16 15:56 | XMS REPORT | Continuity of Care Document ---
Author Author [facility] Organization [facility] Address Unknown Phone Unavailable Care Team Providers [facility] Name Role Phone [employer] Unavailable Unavailable Problems Problem Status Onset Date Classification Date Reported Comments Source Chest pain, unspecified 07/30/2017 08/02/2017 [facility] Palpitations 07/30/2017 08/02/2017 [facility] ABD PAIN-11 WEEKS Active 10/24/2016 [facility] Discharge Diagnosis: Acute UTI 09/21/2016 09/24/2016 [facility] Discharge Diagnosis: Abdominal pain affecting 09/21/2016 09/24/2016 [facility] ABDOMINAL PAIN Active 09/21/2016 [facility] Discharge Diagnosis: First trimester bleeding 09/16/2016 09/19/2016 [facility] Discharge Diagnosis: Threatened miscarriage 09/16/2016 09/19/2016 [facility] OB 6 WKS/VAG BLEEDING Active 09/16/2016 [facility] Discharge Diagnosis: Hyperglycemia 07/13/2016 07/16/2016 [facility] Discharge Diagnosis: Atypical chest pain 07/13/2016 07/16/2016 [facility] Discharge Diagnosis: Acute lower UTI (urinary tract infection) 07/13/2016 07/16/2016 [facility] Discharge Diagnosis: Dizziness 07/13/2016 07/16/2016 [facility] DIZZINESS Active 07/12/2016 [facility] Discharge Diagnosis: Chest pain 07/07/2016 07/10/2016 [facility] Discharge Diagnosis: Near syncope 07/07/2016 07/10/2016 [facility] Discharge Diagnosis: Anemia 07/07/2016 07/10/2016 [facility] Discharge Diagnosis: Acute hypokalemia 07/07/2016 07/10/2016 [facility] DIZZY/CHEST PAIN Active 07/07/2016 [facility] Discharge Diagnosis: Shortness of breath 06/19/2016 06/22/2016 [facility] ASTMAH Active 06/19/2016 [facility] Discharge Diagnosis: Anxiety 06/18/2016 06/21/2016 [facility] Discharge Diagnosis: Asthma 06/18/2016 06/21/2016 [facility] SHORTNESS OF BREATH Active 06/18/2016 [facility] Discharge Diagnosis: Urinary tract infection, site not specified 05/25/2016 05/28/2016 [facility] Discharge Diagnosis: UTI (urinary tract infection) 04/20/2016 04/23/2016 [facility] Discharge Diagnosis: Heat exhaustion 04/20/2016 04/23/2016 [facility] Discharge Diagnosis: Dehydration 04/18/2016 04/22/2016 [facility] Discharge Diagnosis: Heat exhaustion, unspecified, initial encounter 04/18/2016 04/22/2016 [facility] HEAT EXHAUSTION Active 04/18/2016 [facility] ABD PAIN Active 03/21/2016 [facility] STOMACH PAIN Active 12/02/2015 [facility] INTRACTABLE ABDOMINAL PAIN, GBW THICKENI Active 12/02/2015 [facility] Discharge Diagnosis: Lower abdominal pain, unspecified 11/10/2015 11/13/2015 [facility] EXPOSURE Active 10/16/2015 [facility] PELVIC PAIN Active 10/06/2015 [facility] SOB Active 09/21/2015 [facility] Discharge Diagnosis: Acute lower UTI 06/11/2015 06/14/2015 [facility] Discharge Diagnosis: Pharyngitis, acute 05/14/2015 05/17/2015 [facility] FEVER Active 05/14/2015 [facility] Discharge Diagnosis: Abdominal pain 04/21/2015 04/24/2015 [facility] Discharge Diagnosis: Bacterial vaginosis 04/19/2015 04/22/2015 [facility] Discharge Diagnosis: Urinary tract infection 04/19/2015 04/22/2015 [facility] Discharge Diagnosis: Pelvic pain in female 04/19/2015 04/22/2015 [facility] SYMPTOMS/ECTOPIC PREG Active 04/18/2015 [facility] SYNCOPE Active 03/16/2015 [facility] Discharge Diagnosis: Acute pelvic inflammatory disease 03/09/2015 03/13/2015 [facility] Discharge Diagnosis: Acute pelvic pain, female 03/09/2015 03/13/2015 [facility] Discharge Diagnosis: Dizziness 03/09/2015 03/13/2015 [facility] Discharge Diagnosis: Acute back pain 11/04/2014 11/06/2014 [facility] Discharge Diagnosis: Nausea 11/04/2014 11/06/2014 [facility] Discharge Diagnosis: UTI (lower urinary tract infection) 10/30/2014 11/01/2014 [facility] Discharge Diagnosis: Diarrhea 10/30/2014 11/01/2014 [facility] DIARRHEA Active 10/30/2014 [facility] Discharge Diagnosis: Near syncope 06/23/2014 06/26/2014 [facility] Discharge Diagnosis: Acute lower UTI 06/23/2014 06/26/2014 [facility] Discharge Diagnosis: Acute otitis externa 06/23/2014 06/26/2014 [facility] WEAKNESS/CHEST PAIN Active 06/23/2014 [facility] Discharge Diagnosis: Asthma exacerbation 06/10/2014 06/13/2014 [facility] Discharge Diagnosis: Upper respiratory infection 06/10/2014 06/13/2014 [facility] DIFFICULTY BREATHING Active 06/10/2014 [facility] ABD PAIN/ LOWER BACK PAIN Active 07/08/2012 [facility] RIGHT SIDEPAIN Active 04/22/2012 [facility] ABD PAIN-LOWER Active 04/16/2012 [facility] OVARIAN CYST Active 04/15/2012 [facility] ADBOMINAL PAIN Active 10/15/2011 [facility] TROUBLE BREATHING Active 08/02/2011 [facility] Asthma (disorder) Active Problem 08/02/2017 [facility] Bronchitis (disorder) Resolved Problem 08/02/2017 [facility] Diabetes mellitus (disorder) Resolved Problem 08/02/2017 [facility] Diverticular disease (disorder) Resolved Problem 08/02/2017 [facility] Ectopic (disorder) Resolved Problem 08/02/2017 [facility] Depressive disorder (disorder) Resolved Problem 08/02/2017 [facility] Obesity Active Problem 12/10/2015 [facility] Asthma Active Problem 12/10/2015 [facility] Type 2 diabetes mellitus without complications Active Problem 12/10/2015 [facility] Fatty liver Active Problem 12/10/2015 [facility] GENERALIZED ABDOMINAL PAIN Active [facility] Medications Medication Details Route Status Patient Instructions Ordering Provider Order Date Source ferrous sulfate 325 mg, 1 tab, Route: PO, Drug form: ECTAB, TID, Dosing Weight 90, kg, Start date: 07/31/17 9:00:00 [employer], Duration: 30 day, Stop date: 08/30/17 8:59:00 CSTNotes: Give with food. "Do Not Crush" No Longer Active 07/31/2017 [facility] Aspirin 325 MG Enteric Coated Tablet 325 mg, 1 tab, Route: PO, Drug form: ECTAB, Daily, Dosing Weight 90, kg, Start date: 07/31/17 9:00:00 [employer], Duration: 30 day, Stop date: 08/30/17 8:59:00 CSTNotes: (Do Not Crush) Do not crush or chew. No Longer Active 07/31/2017 [facility] Metformin 500 mg, 1 tab, Route: PO, Drug form: TAB, Daily, Dosing Weight 90, kg, Start date: 07/31/17 9:00:00 [employer], Duration: 30 day, Stop date: 08/30/17 8:59:00 CSTNotes: (Same as: Glucophage) Take with meal No Longer Active 07/31/2017 [facility] Saline Flush 0.9% 10 ml, Route: IVP, Drug Form: INJ, Dosing Weight 90, kg, Q12H, Start date: 07/30/17 21:00:00 [employer], Duration: 30 day, Stop date: 08/29/17 20:59:00 CSTNotes: (Same as: BD Posiflush) Inactive 07/31/2017 [facility] Alprazolam 0.25 MG Oral Tablet [Xanax] 0.25 mg, 1 tab, Route: PO, Drug form: TAB, TID, Dosing Weight 90, kg, PRN Anxiety, Start date: 07/30/17 17:54:00 [employer], Duration: 30 day, Stop date: 08/29/17 17:53:00 CSTNotes: With food or milk (Same as: Xanax) Inactive 07/30/2017 [facility] Insulin Lispro 4 unit, 0.04 mL, Route: SUB-Q, Drug form: SOLN, Bedtime, Dosing Weight 90, kg, PRN Blood Glucose Results, Start date: 07/30/17 12:09:00 [employer], Duration: 30 day, Stop date: 08/29/17 12:08:00 CSTNotes: Roll in palms of hands gently; Do not shake `vigorously. (Same as: Humalog ) "Single Patient Use Only " WASTE: F/P - Black; E - Municipal Trash Bin Stable for 28 days at room temperature. Expires in days from Date Inactive 07/30/2017 [facility] Glucagon 1 mg, Route: IM, Drug form: PDR/INJ, PRN, Dosing Weight 90, kg, PRN Blood Glucose Results, Start date: 07/30/17 12:09:00 [employer], Duration: 30 day, Stop date: 08/29/17 12:08:00 [employer] Inactive 07/30/2017 [facility] Dextrose 50% Syringe 25 gm, 50 mL, Route: IVP, Drug Form: INJ, Dosing Weight 90, kg, PRN, PRN Blood Glucose Results, Start date: 07/30/17 12:09:00 [employer], Duration: 30 day, Stop date: 08/29/17 12:08:00 [employer] Inactive 07/30/2017 [facility] Saline Flush 0.9% 10 ml, Route: IVP, Drug Form: INJ, Dosing Weight 90, kg, PRN, PRN Line Flush, Start date: 07/30/17 11:57:00 [employer], Duration: 30 day, Stop date: 08/29/17 11:56:00 CSTNotes: (Same as: BD Posiflush) Inactive 07/30/2017 [facility] Morphine 2 mg, 0.5 mL, Route: IVP, Drug form: SOLN, Q15Min, Dosing Weight 90, kg, PRN Chest Pain, Start date: 07/30/17 11:57:00 [employer], Duration: 2 doses or times, Stop date: Limited # of timesNotes: (Same as:MO RPhine Sulfate) Inactive 07/30/2017 [facility] Nitroglycerin 0.4 mg, 1 tab, Route: SL, Drug form: TAB, Q5Min, Dosing Weight 90, kg, PRN Chest Pain, Start date: 07/30/17 11:57:00 [employer], Duration: 3 doses or times, Stop date: Limited # of timesNotes: (Same as:Nitr oquick, Nitrostat) "Do Not Crush" Sublingual tablet Inactive 07/30/2017 [facility] Ondansetron 4 mg, 2 mL, Route: IVP, Drug form: INJ, Q8H, Dosing Weight 90, kg, PRN Nausea & Vomiting, Start date: 07/30/17 11:57:00 [employer], Duration: 30 day, Stop date: 08/29/17 11:56:00 CSTNotes: (Same as: Lionel) MEDICATION WASTE Product Size: 4 mg Product Wasted: _0__ mg Inactive 07/30/2017 [facility] BD Normal Saline Flush 25 mL, Route: IV, Drug Form: INJ, PRN, PRN Line Flush, Start date: 07/30/17 9:18:00 [employer], Duration: 30 day, Stop date: 08/29/17 9:17:00 CSTNotes: (Same as: BD Posiflush) Inactive 07/30/2017 [facility] Saline Flush 0.9% 10 mL, Route: IVP, Drug Form: INJ, Dosing Weight 90, kg, PRN, PRN Line Flush, Start date: 07/30/17 9:11:00 [employer], Duration: 30 day, Stop date: 08/29/17 9:10:00 CSTNotes: (Same as: BD Posiflush) Inactive 07/30/2017 [facility] Sodium Chloride 0.9% (Bolus) IV 1,000 mL, 1000 ml/hr, Infuse Over: 1 hr, Route: IV, 1,000, Drug form: INJ, ONCE, Priority: STAT, Dosing Weight 90 kg, Start date: 07/30/17 9:11:00 [employer], Stop date: 07/30/17 9:11:00 [employer] Inactive 07/30/2017 [facility] Saline Flush 0.9% 10 mL, Route: IVP, Drug Form: INJ, Dosing Weight 97.727, kg, PRN, PRN Line Flush, Start date: 10/24/16 0:48:00 [employer], Duration: 30 day, Stop date: 11/23/16 1:47:00 CDTNotes: (Same as: BD Posiflush) Inactive 10/24/2016 [facility] Tylenol 650 mg, 2 tab, Route: PO, Drug form: TAB, ONCE, Dosing Weight 93.636, kg, Priority: STAT, Start date: 09/21/16 14:28:00 [employer], Stop date: 09/21/16 14:28:00 CSTNotes: Do not exceed 4 gm/day. (Same as: Tylenol) Inactive 09/21/2016 [facility] Ceftriaxone 1 gm, Route: IVPB, ONCE, Dosing Weight 93.636, kg, Priority: STAT, Start date: 09/21/16 13:46:00 [employer], Stop date: 09/21/16 13:46:00 CSTNotes: (Same As: Rocephin). Use with 100 mL NS and infuse over 30 m in MEDICATION WASTE Product Size: 1000 mg Product Wasted: ___ mg Inactive 09/21/2016 [facility] Albuterol 0.833 MG/ML / Ipratropium Robbins 0.167 MG/ML Inhalant Solution 3 mL, Route: NEB, Drug Form: SOLN, Dosing Weight 93.636, kg, ONCE, STAT, Start date: 09/21/16 12:44:00 [employer], Stop date: 09/21/16 12:44:00 CSTNotes: (Same as: Duoneb) Inactive 09/21/2016 [facility] Sodium Chloride 0.154 MEQ/ML Injectable Solution 1,000 mL, 1,000 ml/hr, Infuse Over: 1 hr, Route: IV, 1,000, Drug form: INJ, ONCE, Priority: STAT, Dosing Weight 93.636 kg, Start date: 09/21/16 12:43:00 [employer], Duration: 1 doses or times, Stop date: 09/21/16 12:43:00 [employer] Inactive 09/21/2016 [facility] Saline Flush 0.9% 10 mL, Route: IVP, Drug Form: INJ, Dosing Weight 93.636, kg, PRN, PRN Line Flush, Start date: 09/21/16 12:43:00 [employer], Duration: 30 day, Stop date: 10/21/16 12:42:00 CSTNotes: (Same as: BD Posiflush) Inactive 09/21/2016 [facility] Cephalexin 500 MG Oral Capsule [Keflex] 500 mg=1 cap, PO, BID, X 7 day, # 14 cap, 0 Refill(s) Active 09/16/2016 [facility] Sodium Chloride 0.154 MEQ/ML Injectable Solution 1,000 mL, Infuse Over: 1 hr, Route: IV, ONCE, Priority: STAT, Dosing Weight 94.545 kg, Start date: 09/16/16 15:41:00 [employer], Duration: 1 doses or times, Stop date: 09/16/16 15:41:00 [employer] Inactive 09/16/2016 [facility] Nitrofurantoin 100 MG Oral Capsule [Macrobid] 100 mg=1 cap, PO, BID, X 3 day, # 6 cap, 0 Refill(s) Active 07/13/2016 [facility] Ativan 0.5 mg, Route: IVP, Drug form: INJ, ONCE, Dosing Weight 97.727, kg, Priority: STAT, Start date: 07/13/16 1:39:00 CDT, Stop date: 07/13/16 1:39:00 CDT Inactive 07/13/2016 [facility] Sodium Chloride 0.154 MEQ/ML Injectable Solution 1,000 mL, 2,000 ml/hr, Infuse Over: 30 minutes, Route: IV, ONCE, Priority: STAT, Dosing Weight 97.727 kg, Start date: 07/13/16 1:39:00 CDT, Duration: 1 doses or times, Stop date: 07/13/16 1:39:00 CDT Inactive 07/13/2016 [facility] Saline Flush 0.9% 10 mL, Route: IVP, Drug Form: INJ, Dosing Weight 97.727, kg, PRN, PRN Line Flush, Start date: 07/12/16 23:59:00 CDT, Duration: 30 day, Stop date: 08/11/16 22:58:00 CSTNotes: (Same as: BD Posiflush) No Longer Active 07/13/2016 [facility] ferrous sulfate 325 mg oral enteric coated tablet 325 mg=1 tab, PO, TID, Start with 1 tab daily x 3 days, advance as tolerate, use stool softners and laxatives as needed for constipation, # 90 tab, 3 Refill(s) Active 07/07/2016 [facility] Sodium Chloride 0.154 MEQ/ML Injectable Solution 500 mL, 500 ml/hr, Infuse Over: 1 hr, Route: IV, ONCE, Priority: STAT, Dosing Weight 97.727 kg, Start date: 07/07/16 17:55:00 CDT, Duration: 1 doses or times, Stop date: 07/07/16 17:55:00 CDT Inactive 07/07/2016 [facility] potassium chloride 40 mEq, Route: PO, Drug form: ERTAB, ONCE, Dosing Weight 97.727, kg, Priority: STAT, Start date: 07/07/16 17:47:00 CDT, Stop date: 07/07/16 17:47:00 CDT Inactive 07/07/2016 [facility] Saline Flush 0.9% 10 mL, Route: IVP, Drug Form: INJ, Dosing Weight 97.727, kg, PRN, PRN Line Flush, Start date: 07/07/16 16:52:00 CDT, Duration: 30 day, Stop date: 08/06/16 15:51:00 CSTNotes: (Same as: BD Posiflush) Inactive 07/07/2016 [facility] Albuterol 0.833 MG/ML / Ipratropium Robbins 0.167 MG/ML Inhalant Solution 3 mL, Route: NEB, Drug Form: SOLN, Dosing Weight 97.727, kg, ONCE, STAT, Start date: 06/19/16 19:22:00 CDT, Stop date: 06/19/16 19:22:00 CDTNotes: (Same as: Duoneb) Inactive 06/20/2016 [facility] Albuterol 0.833 MG/ML / Ipratropium Robbins 0.167 MG/ML Inhalant Solution [DuoNeb] 3 ml, Route: NEB, Drug Form: SOLN, Dosing Weight 97.727, kg, PRN, PRN Respiratory Protocol, Start date: 06/19/16 15:29:00 CDT, Duration: 30 day, Stop date: 07/19/16 14:28:00 CSTNotes: (Same as: Duoneb) Inactive 06/19/2016 [facility] Albuterol 0.833 MG/ML / Ipratropium Robbins 0.167 MG/ML Inhalant Solution 3 mL, Route: NEB, Drug Form: SOLN, Dosing Weight 97.727, kg, ONCE, STAT, Start date: 06/18/16 21:39:00 CDT, Stop date: 06/18/16 21:39:00 CDTNotes: (Same as: Duoneb) Inactive 06/19/2016 [facility] Saline Flush 0.9% 10 mL, Route: IVP, Drug Form: INJ, Dosing Weight 97.727, kg, PRN, PRN Line Flush, Start date: 06/18/16 20:18:00 CDT, Duration: 30 day, Stop date: 07/18/16 19:17:00 CSTNotes: (Same as: BD Posiflush) No Longer Active 06/19/2016 [facility] Nitrofurantoin 100 MG Oral Capsule [Macrobid] 100 mg=1 cap, PO, BID, X 10 day, # 20 cap, 0 Refill(s) Active 05/25/2016 [facility] Zofran 4 mg, Route: IVP, Drug form: INJ, ONCE, Dosing Weight 97.727, kg, Priority: STAT, Start date: 05/25/16 8:36:00 CDT, Stop date: 05/25/16 8:36:00 CDT Inactive 05/25/2016 [facility] Sodium Chloride 0.154 MEQ/ML Injectable Solution 1,000 mL, 1,000 ml/hr, Infuse Over: 1 hr, Route: IV, ONCE, Priority: STAT, Dosing Weight 97.727 kg, Start date: 05/25/16 8:07:00 CDT, Duration: 1 doses or times, Stop date: 05/25/16 8:07:00 CDT Inactive 05/25/2016 [facility] Cephalexin 500 MG Oral Capsule [Keflex] 500 mg=1 cap, PO, BID, X 7 day, # 14 cap, 0 Refill(s) Active 04/20/2016 [facility] Sodium Chloride 0.154 MEQ/ML Injectable Solution 1,000 mL, 2,000 ml/hr, Infuse Over: 30 minutes, Route: IV, ONCE, Priority: STAT, Dosing Weight 100 kg, Start date: 04/20/16 3:26:00 CDT, Duration: 1 doses or times, Stop date: 04/20/16 3:26:00 CDT Inactive 04/20/2016 [facility] Zofran 4 mg, Route: IVP, Drug form: INJ, ONCE, Dosing Weight 100, kg, Priority: STAT, Start date: 04/20/16 2:43:00 CDT, Stop date: 04/20/16 2:43:00 CDT Inactive 04/20/2016 [facility] Sodium Chloride 0.154 MEQ/ML Injectable Solution 1,000 mL, 2,000 ml/hr, Infuse Over: 30 minutes, Route: IV, ONCE, Priority: STAT, Dosing Weight 100 kg, Start date: 04/20/16 2:26:00 CDT, Duration: 1 doses or times, Stop date: 04/20/16 2:26:00 CDT Inactive 04/20/2016 [facility] Ondansetron 4 mg, 2 mL, Route: IVP, Drug form: INJ, ONCE, Dosing Weight 97.727, kg, Priority: STAT, Start date: 04/18/16 19:46:00 CDT, Stop date: 04/18/16 19:46:00 CDTNotes: (Same as: Zofran) MEDICATION WASTE Product Size: 4 mg Product Wasted: __0_ mg Inactive 04/19/2016 [facility] Saline Flush 0.9% 10 mL, Route: IVP, Drug Form: INJ, Dosing Weight 97.727, kg, PRN, PRN Line Flush, Start date: 04/18/16 19:46:00 CDT, Duration: 30 day, Stop date: 05/18/16 19:45:00 CDTNotes: (Same as: BD Posiflush) No Longer Active 04/19/2016 [facility] Sodium Chloride 0.154 MEQ/ML Injectable Solution 1,000 mL, 1000 ml/hr, Infuse Over: 1 hr, Route: IV, 1,000, Drug form: INJ, ONCE, Priority: STAT, Dosing Weight 97.727 kg, Start date: 04/18/16 19:46:00 CDT, Duration: 1 doses or times, Stop date: 04/18/16 19:46:00 CDT Inactive 04/19/2016 [facility] cephalexin 500 mg oral tablet 500 mg=1 tab, PO, TID, X 14 day, # 42 tab, 0 Refill(s) Active 03/22/2016 [facility] Ondansetron 4 MG Disintegrating Tablet [Zofran] 4 mg=1 tab, PO, Q8H, PRN Nausea and Vomiting, Dissolve tab under tongue, X 5 day, # 15 tab, 0 Refill(s) Active 03/22/2016 [facility] Tylenol 650 mg, 2 tab, Route: PO, Drug form: TAB, ONCE, Dosing Weight 97.727, kg, Priority: STAT, Start date: 03/21/16 17:37:00 CDT, Stop date: 03/21/16 17:37:00 CDTNotes: Do not exceed 4 gm/day. (Same as: Tylenol) Inactive 03/21/2016 [facility] Rocephin 1 gm, Route: IVPB, ONCE, Dosing Weight 97.727, kg, Priority: STAT, Start date: 03/21/16 17:37:00 CDT, Stop date: 03/21/16 17:37:00 CDTNotes: (Same As: Rocephin). Use with 100 mL NS and infuse over 30 m in MEDICATION WASTE Product Size: 1000 mg Product Wasted: _0_ mg Inactive 03/21/2016 [facility] Saline Flush 0.9% 10 mL, Route: IVP, Drug Form: INJ, Dosing Weight 94.091, kg, PRN, PRN Line Flush, Start date: 03/21/16 15:17:00 CDT, Duration: 30 day, Stop date: 04/20/16 15:16:00 CDTNotes: (Same as: BD Posiflush) Inactive 03/21/2016 [facility] Sodium Chloride 0.154 MEQ/ML Injectable Solution 1,000 mL, 2,000 ml/hr, Infuse Over: 30 minutes, Route: IV, 1,000, Drug form: INJ, ONCE, Priority: STAT, Dosing Weight 94.091 kg, Start date: 03/21/16 15:17:00 CDT, Duration: 1 doses or times, Stop date: 03/21/16 15:17:00 CDT Inactive 03/21/2016 [facility] Protonix 40 mg, 1 tab, Route: PO, Drug form: ECTAB, Daily, Start date: 12/05/15 9:00:00, Duration: 30 day, Stop date: 01/03/16 9:00:00Notes: Tablet should not be chewed or crushed. (Same as: Protonix) Inactive 12/05/2015 [facility] Acetaminophen 300 MG / Codeine Phosphate 60 MG Oral Tablet [Tylenol with Codeine #4] 1 tab, PO, Q6H, PRN pain, X 7 day, # 28 tab, 0 Refill(s) Active 12/04/2015 [facility] Metformin hydrochloride 500 MG Oral Tablet 500 mg, 1 tab, Route: PO, Drug form: TAB, Daily, Dosing Weight 94.091, kg, Start date: 12/04/15 9:00:00, Duration: 30 day, Stop date: 01/02/16 9:00:00Notes: (Same as: Glucophage) Take with meal No Longer Active 12/04/2015 [facility] Albuterol 0.833 MG/ML / Ipratropium Robbins 0.167 MG/ML Inhalant Solution 3 mL, Route: NEB, Drug Form: SOLN, Dosing Weight 94.091, kg, RQID, Start date: 12/04/15 8:53:00, Duration: 30 day, Stop date: 01/03/16 7:00:00Notes: (Same as: Duoneb) No Longer Active 12/04/2015 [facility] Zofran 4 mg, 2 mL, Route: IV, Drug form: INJ, Q6H, Dosing Weight 94.091, kg, PRN as needed for nausea/vomiting, Start date: 12/04/15 8:53:00, Duration: 30 day, Stop date: 01/03/16 8:52:00Notes: (Same as: Zofran) MEDICATION WASTE Product Size: 4 mg Product Wasted: ___ mg No Longer Active 12/04/2015 [facility] Zosyn 3.375 gm, Route: IVPB, [id number], Dosing Weight 94.091, kg, Start date: 12/04/15 1:00:00, Duration: 30 day, Stop date: 01/02/16 17:00:00Notes: (Same as: Zosyn) Dosing based on Piperacillin component MEDICATION WASTE Product Size: 3375 mg Product Wasted: ___ mg No Longer Active 12/04/2015 [facility] Saline Flush 0.9% 10 ml, Route: IVP, Drug Form: INJ, Dosing Weight 94.091, kg, PRN, PRN Line Flush, Start date: 12/03/15 23:53:00, Duration: 30 day, Stop date: 01/02/16 23:52:00Notes: (Same as: BD Posiflush) No Longer Active 12/04/2015 [facility] Sodium Chloride 0.154 MEQ/ML Injectable Solution 1,000 mL, Rate: 125 ml/hr, Infuse over: 8 hr, Route: IV, Dosing Weight 94.091 kg, Total Volume: 1,000, Start date: 12/03/15 23:53:00, Duration: 30 day, Stop date: 01/02/16 23:52:00 No Longer Active 12/04/2015 [facility] Morphine 4 mg, 2 mL, Route: IVP, Drug form: INJ, Q4H, Dosing Weight 95.455, kg, PRN Pain Score 7-10, Start date: 12/03/15 23:53:00, Duration: 30 day, Stop date: 01/02/16 23:52:00Notes: (Same as:MORPhine Sulfate) No Longer Active 12/04/2015 [facility] Ondansetron 4 mg, 2 mL, Route: IVP, Drug form: INJ, Q6H, Dosing Weight 94.091, kg, PRN Nausea & Vomiting, Start date: 12/03/15 23:53:00, Duration: 30 day, Stop date: 01/02/16 23:52:00Notes: (Same as: Lionel) MEDICATION WASTE Product Size: 4 mg Product Wasted: ___ mg No Longer Active 12/04/2015 [facility] Diphenhydramine 12.5 mg, 0.25 mL, Route: IVP, Drug form: INJ, Q6H, Dosing Weight 94.091, kg, PRN Itching, Start date: 12/03/15 22:06:00, Duration: 30 day, Stop date: 01/02/16 22:05:00Notes: (Same as: Benadryl) Inactive 12/04/2015 [facility] Ondansetron 4 mg, 2 mL, Route: IVP, Drug form: INJ, ONCE, Dosing Weight 94.091, kg, PRN Nausea & Vomiting, Start date: 12/03/15 22:06:00Notes: (Same as: Lionel) MEDICATION WASTE Product Size: 4 mg Product Wasted: ___ mg Inactive 12/04/2015 [facility] Promethazine 6.25 mg, Route: IVPB, ONCE, Dosing Weight 94.091, kg, PRN Nausea & Vomiting, Start date: 12/03/15 22:06:00 Inactive 12/04/2015 [facility] Oxycodone 10 mg, 2 tab, Route: PO, Drug form: TAB, Q4H, Dosing Weight 94.091, kg, PRN Pain Score 7-10, Start date: 12/03/15 22:06:00, Duration: 30 day, Stop date: 01/02/16 22:05:00Notes: (Same as: Roxicodone) Inactive 12/04/2015 [facility] Hydromorphone 0.5 mg, 0.5 mL, Route: IVP, Drug form: INJ, Q5Min, Dosing Weight 94.091, kg, PRN Pain Score 7-10, Start date: 12/03/15 22:06:00, Duration: 4 doses or times, Stop date: Limited # of times Inactive 12/04/2015 [facility] Fentanyl 25 microgram, 0.5 mL, Route: IVP, Drug form: INJ, Q5Min, Dosing Weight 94.091, kg, PRN Pain Score 4-6, Start date: 12/03/15 22:06:00, Duration: 4 doses or times, Stop date: Limited # of timesNotes: (Same as: Sublimaze) Preservative free. Inactive 12/04/2015 [facility] Meperidine 12.5 mg, 0.25 mL, Route: IVP, Drug form: INJ, Q30Min, Dosing Weight 94.091, kg, PRN Other -See Comment, For shivering, Start date: 12/03/15 22:06:00, Duration: 2 doses or times, Stop date: Limited # of timesNotes: (Same As: Demerol) Inactive 12/04/2015 [facility] Flumazenil 0.2 mg, 2 mL, Route: IVP, Drug form: INJ, PRN, Dosing Weight 94.091, kg, PRN Benzodiazepine Reversal, Initial dose, Start date: 12/03/15 22:06:00, Duration: 30 day, Stop date: 01/02/16 22:05:00Notes: (Same as: Romazicon) Inactive 12/04/2015 [facility] Naloxone 0.04 mg, 0.1 mL, Route: IVP, Drug form: INJ, Q2MIN, Dosing Weight 94.091, kg, PRN Narcotic Reversal, Start date: 12/03/15 22:06:00, Duration: 8 doses or times, Stop date: Limited # of timesNotes: Same as Narcan Inactive 12/04/2015 [facility] Albuterol 0.83 MG/ML Inhalant Solution 2.49 mg, 3 mL, Route: NEB, Drug form: SOLN, Q20Min, Dosing Weight 94.091, kg, PRN Wheezing, Priority: STAT, Start date: 12/03/15 22:06:00, Duration: 30 day, Stop date: 01/02/16 22:05:00Notes: SEE RT DOCUMENTATION (Same as: Proventil) Inactive 12/04/2015 [facility] Hydromorphone 1 mg, 1 mL, Route: IVP, Drug form: INJ, Q3H, Dosing Weight 94.091, kg, PRN Pain Score 4-6, Start date: 12/03/15 22:03:00, Duration: 30 day, Stop date: 01/02/16 22:02:00 No Longer Active 12/04/2015 [facility] Morphine 2 mg, 1 mL, Route: IVP, Drug form: INJ, Q3H, Dosing Weight 94.091, kg, PRN Pain Score 1-3, Start date: 12/03/15 22:03:00, Duration: 30 day, Stop date: 01/02/16 22:02:00Notes: (Same as:MORPhine Sulfate) No Longer Active 12/04/2015 [facility] acetaminophen-codeine #3 1 tab, Route: PO, Drug Form: TAB, Dosing Weight 94.091, kg, Q4H, PRN Pain Score 4-6, Start date: 12/03/15 22:03:00, Duration: 30 day, Stop date: 01/02/16 22:02:00Notes: Do not exceed 4gm/day of acetaminophen. (Same as: Tylenol with Codeine # 3) No Longer Active 12/04/2015 [facility] Ondansetron 4 mg, 2 mL, Route: IVP, Drug form: INJ, Q6H, Dosing Weight 94.091, kg, PRN Nausea & Vomiting, Start date: 12/03/15 22:03:00, Duration: 30 day, Stop date: 01/02/16 22:02:00Notes: (Same as: Lionel) MEDICATION WASTE Product Size: 4 mg Product Wasted: ___ mg No Longer Active 12/04/2015 [facility] Calcium Chloride 0.0014 MEQ/ML / Potassium Chloride 0.004 MEQ/ML / Sodium Chloride 0.103 MEQ/ML / Sodium Lactate 0.028 MEQ/ML Injectable Solution 1,000 mL, Rate: 75 ml/hr, Infuse over: 13.3 hr, Route: IV, Dosing Weight 94.091 kg, Total Volume: 1,000, Start date: 12/03/15 22:03:00, Duration: 30 day, Stop date: 01/02/16 22:02:00 No Longer Active 12/04/2015 [facility] dexamethasone (ANES) Route: IV, Drug form: INJ, ONCE, Stop date: 12/03/15 21:53:00 Inactive 12/04/2015 [facility] hydromorphone (ANES) Route: IV, Drug form: INJ, ONCE, Stop date: 12/03/15 21:53:00 Inactive 12/04/2015 [facility] neostigmine (ANES) Route: IV, Drug form: INJ, ONCE, Stop date: 12/03/15 21:53:00 Inactive 12/04/2015 [facility] ceFAZolin (ANES) Route: IV, Drug form: INJ, ONCE, Stop date: 12/03/15 21:53:00 Inactive 12/04/2015 [facility] rocuronium (ANES) Route: IV, Drug form: INJ, ONCE, Stop date: 12/03/15 21:53:00 Inactive 12/04/2015 [facility] acetaminophen (ANES) (ANES) Route: IV, Drug form: INJ, Start date: 12/03/15 21:36:00, Stop date: 12/03/15 22:36:00 Inactive 12/04/2015 [facility] midazolam (ANES) Route: IV, Drug form: SOLN, ONCE, Stop date: 12/03/15 21:22:00 Inactive 12/04/2015 [facility] lidocaine (ANES) Route: IV, Drug form: INJ, ONCE, Stop date: 12/03/15 21:22:00 Inactive 12/04/2015 [facility] fentaNYL (ANES) Route: IV, Drug form: INJ, ONCE, Stop date: 12/03/15 21:22:00 Inactive 12/04/2015 [facility] glycopyrrolate (ANES) Route: IV, Drug form: INJ, ONCE, Stop date: 12/03/15 21:22:00 Inactive 12/04/2015 [facility] acetaminophen (ANES) Route: IV, Drug form: INJ, ONCE, Stop date: 12/03/15 21:22:00 Inactive 12/04/2015 [facility] ondansetron (ANES) Route: IV, Drug form: INJ, ONCE, Stop date: 12/03/15 21:22:00 Inactive 12/04/2015 [facility] neostigmine (ANES) Route: IV, Drug form: INJ, ONCE, Stop date: 12/03/15 21:22:00 Inactive 12/04/2015 [facility] propofol (ANES) Route: IV, Drug form: INJ, ONCE, Stop date: 12/03/15 21:22:00 Inactive 12/04/2015 [facility] Lactated Ringers Injection IV (ANES) (ANES) Route: IV, Total Volume: 1,000, Start date: 12/03/15 20:47:00, Stop date: 12/03/15 21:47:00 Inactive 12/04/2015 [facility] Xopenex 0.63 mg, Route: NEB, ONCE, Dosing Weight 95, kg, PRN Respiratory Protocol, Start date: 12/03/15 13:56:00, Stop date: 01/02/16 13:55:00 Inactive 12/03/2015 [facility] Protonix 40 mg, Route: IV, Drug form: INJ, Daily, Dosing Weight 95.455, kg, Start date: 12/03/15 9:00:00, Duration: 30 day, Stop date: 01/01/16 9:00:00Notes: For IV push reconstitute with 10 ml 0.9% sodium chloride and push over 2 minutes. (Same as: Protonix) No Longer Active 12/03/2015 [facility] 200 ACTUAT Albuterol 0.09 MG/ACTUAT Metered Dose Inhaler [Proventil] 2 puff, INHALER, Q4H, PRN wheezing, coughing, or shortness of breath, # 1 ea, 1 Refill(s) Active 12/03/2015 [facility] Metformin 500 mg, PO, Daily, 0 Refill(s) Active 12/03/2015 [facility] Morphine 2 mg, 1 mL, Route: IVP, Drug form: INJ, Q4H, Dosing Weight 95.455, kg, PRN Pain Score 7-10, Start date: 12/02/15 17:14:00, Duration: 30 day, Stop date: 01/01/16 17:13:00Notes: (Same as:MORPhine Sulfate) No Longer Active 12/02/2015 [facility] Ondansetron 4 mg, 2 mL, Route: IVP, Drug form: INJ, Q6H, Dosing Weight 95.455, kg, PRN Nausea & Vomiting, Start date: 12/02/15 17:14:00, Duration: 30 day, Stop date: 01/01/16 17:13:00Notes: (Same as: Lionel) MEDICATION WASTE Product Size: 4 mg Product Wasted: ___ mg No Longer Active 12/02/2015 [facility] Saline Flush 0.9% 10 ml, Route: IVP, Drug Form: INJ, Dosing Weight 95.455, kg, PRN, PRN Line Flush, Start date: 12/02/15 17:14:00, Duration: 30 day, Stop date: 01/01/16 17:13:00Notes: (Same as: BD Posiflush) No Longer Active 12/02/2015 [facility] Sodium Chloride 0.154 MEQ/ML Injectable Solution 1,000 mL, Rate: 100 ml/hr, Infuse over: 10 hr, Route: IV, Dosing Weight 95.455 kg, Total Volume: 1,000, Start date: 12/02/15 17:14:00, Duration: 30 day, Stop date: 01/01/16 17:13:00 No Longer Active 12/02/2015 [facility] naproxen 500 mg oral tablet 500 mg, PO, BID, PRN Pain, # 30 tab, 0 Refill(s) Active 11/10/2015 [facility] Sulfamethoxazole 800 MG / Trimethoprim 160 MG Oral Tablet [Bactrim] 1 tab, PO, BID, X 7 day, # 14 tab, 0 Refill(s) Active 11/10/2015 [facility] Sodium Chloride 0.154 MEQ/ML Injectable Solution 1,000 mL, 1000 ml/hr, Infuse Over: 1 hr, Route: IV, 1,000, Drug form: INJ, ONCE, Priority: STAT, Dosing Weight 97.727 kg, Start date: 11/10/15 1:54:00, Duration: 1 doses or times, Stop date: 11/10/15 1:54:00 Inactive 11/10/2015 [facility] Rocephin 1 gm, Route: IVPB, ONCE, Dosing Weight 97.727, kg, Priority: STAT, Start date: 11/10/15 1:54:00, Stop date: 11/10/15 1:54:00Notes: (Same As: Rocephin). Use with 100 mL NS and infuse over 30 min MEDICATION WASTE Product Size: 1000 mg Product Wasted: ___ mg Inactive 11/10/2015 [facility] Saline Flush 0.9% 10 mL, Route: IVP, Drug Form: INJ, Dosing Weight 97.727, kg, PRN, PRN Line Flush, Start date: 11/09/15 22:53:00, Duration: 30 day, Stop date: 12/09/15 23:52:00Notes: (Same as: BD Posiflush) No Longer Active 11/10/2015 [facility] Sulfamethoxazole 800 MG / Trimethoprim 160 MG Oral Tablet [Bactrim] 1 tab, PO, BID, for UTI, X 3 day, # 6 tab, 0 Refill(s)Special Instructions: for UTI Active 06/11/2015 [facility] Sodium Chloride 0.154 MEQ/ML Injectable Solution 1,000 mL, 100 ml/hr, Infuse Over: 1 Hour, Route: IV, ONCE, Dosing Weight 95.455 kg, Start date: 06/10/15 22:48:00, Stop date: 06/10/15 22:48:00 Inactive 06/11/2015 [facility] Acetaminophen 650 mg, Route: NH, ONCE, Dosing Weight 95.455, kg, Priority: STAT, Start date: 06/10/15 22:42:00, Stop date: 06/10/15 22:42:00 Inactive 06/11/2015 [facility] Sodium Chloride 0.154 MEQ/ML Injectable Solution 100 mL, 100 ml/hr, Infuse Over: 1 Hour, Route: IV, ONCE, Priority: STAT, Dosing Weight 95.455 kg, Start date: 06/10/15 22:10:00, Duration: 1 doses or times, Stop date: 06/10/15 22:10:00 Inactive 06/11/2015 [facility] Protonix 40 mg, Route: IVP, ONCE, Dosing Weight 113.636, kg, Priority: STAT, Start date: 04/21/15 14:11:00, Stop date: 04/21/15 14:11:00 Inactive 04/21/2015 [facility] Benadryl 25 mg, Route: IVP, ONCE, Dosing Weight 113.636, kg, Priority: STAT, Start date: 04/21/15 14:11:00, Stop date: 04/21/15 14:11:00 Inactive 04/21/2015 [facility] Reglan 10 mg, Route: IVP, Drug form: INJ, ONCE, Dosing Weight 113.636, kg, Priority: STAT, Start date: 04/21/15 14:11:00, Stop date: 04/21/15 14:11:00 Inactive 04/21/2015 [facility] Sodium Chloride 0.154 MEQ/ML Injectable Solution 1,000 mL, 1,000 ml/hr, Infuse Over: 1 hr, Route: IV, ONCE, Priority: STAT, Dosing Weight 113.636 kg, Start date: 04/21/15 14:10:00, Duration: 1 doses or times, Stop date: 04/21/15 14:10:00 Inactive 04/21/2015 [facility] Metronidazole 500 MG Oral Tablet [Flagyl] 500 mg=1 tab, PO, Q12H, X 7 day, # 14 tab, 0 Refill(s) Active 04/19/2015 [facility] Sulfamethoxazole 800 MG / Trimethoprim 160 MG Oral Tablet [Bactrim] 1 tab, PO, BID, X 7 day, # 14 tab, 0 Refill(s) Active 04/19/2015 [facility] Rocephin 250 mg, Route: IM, Drug form: PDR/INJ, ONCE, Dosing Weight 97.727, kg, Priority: STAT, Start date: 04/19/15 0:13:00, Stop date: 04/19/15 0:13:00 Inactive 04/19/2015 [facility] Rocephin 1 gm, Route: IVPB, Drug form: PDR/INJ, ONCE, Dosing Weight 97.727, kg, Priority: STAT, Start date: 04/18/15 23:47:00, Stop date: 04/18/15 23:47:00 No Longer Active 04/19/2015 [facility] Albuterol 0.833 MG/ML / Ipratropium Robbins 0.167 MG/ML Inhalant Solution [DuoNeb] 3 ml, Route: NEB, Drug Form: SOLN, Dosing Weight 97.727, kg, PRN, PRN Respiratory Protocol, Start date: 04/18/15 23:10:00, Duration: 30 day, Stop date: 05/18/15 23:09:00Notes: (Same as: Duoneb) No Longer Active 04/19/2015 [facility] Tylenol 650 mg, 2 tab, Route: PO, Drug form: TAB, ONCE, Dosing Weight 97.727, kg, Priority: STAT, Start date: 04/18/15 23:10:00, Stop date: 04/18/15 23:10:00Notes: Do not exceed 4 gm/day. (Same as: Tylenol) Inactive 04/19/2015 [facility] Saline Flush 0.9% 10 mL, Route: IVP, Drug Form: INJ, Dosing Weight 97.727, kg, PRN, PRN Line Flush, Start date: 04/18/15 23:10:00, Duration: 30 day, Stop date: 05/18/15 23:09:00Notes: (Same as: BD Posiflush) No Longer Active 04/19/2015 [facility] Sodium Chloride 0.154 MEQ/ML Injectable Solution 1,000 mL, Rate: 125 ml/hr, Infuse over: 8 hr, Route: IV, Dosing Weight 97.727 kg, Total Volume: 1,000, Start date: 04/18/15 23:10:00, Duration: 30 day, Stop date: 05/18/15 23:09:00 No Longer Active 04/19/2015 [facility] Ceftriaxone 250 mg, Route: IM, Drug form: PDR/INJ, ONCE, Dosing Weight 100, kg, Priority: STAT, Start date: 03/09/15 23:42:00, Stop date: 03/09/15 23:42:00 Inactive 03/10/2015 [facility] Ondansetron 4 MG Oral Tablet [Zofran] 4 mg=1 tab, PO, BID, X 5 day, # 10 tab, 0 Refill(s) Active 03/10/2015 [facility] Metronidazole 500 MG Oral Tablet [Flagyl] 500 mg=1 tab, PO, Q12H, X 14 day, # 28 tab, 0 Refill(s) Active 03/10/2015 [facility] doxycycline monohydrate 100 mg oral tablet 100 mg=1 tab, PO, Q12H, X 14 day, # 28 tab, 0 Refill(s) Active 03/10/2015 [facility] Morphine 4 mg, 2 mL, Route: IVP, Drug form: INJ, ONCE, Dosing Weight 100, kg, Priority: STAT, Start date: 03/09/15 20:14:00, Stop date: 03/09/15 20:14:00Notes: (Same as:MORPhine Sulfate) Inactive 03/10/2015 [facility] Sodium Chloride 0.154 MEQ/ML Injectable Solution 1,000 mL, 1,000 ml/hr, Infuse Over: 1 hr, Route: IV, 1,000, Drug form: INJ, ONCE, Priority: STAT, Dosing Weight 100 kg, Start date: 03/09/15 17:15:00, Duration: 1 doses or times, Stop date: 03/09/15 17:15:00 Inactive 03/09/2015 [facility] Zofran 4 mg, 2 mL, Route: IVP, Drug form: INJ, ONCE, Dosing Weight 100, kg, Priority: STAT, Start date: 03/09/15 17:13:00, Stop date: 03/09/15 17:13:00Notes: (Same as: Zofran) MEDICATION WASTE Product Size: 4 mg Product Wasted: ___ mg Inactive 03/09/2015 [facility] Diflunisal 500 MG Oral Tablet [Dolobid] 500 mg=1 tab, PO, Q8H, # 90 tab, 0 Refill(s) Active 11/04/2014 [facility] Ondansetron 4 MG Disintegrating Tablet [Zofran] 4 mg=1 tab, PO, BID, Nausea and Vomiting, Dissolve tab under tongue, # 10 tab, 0 Refill(s)Special Instructions: Dissolve tab under tongue Active 11/04/2014 [facility] Metronidazole 500 MG Oral Tablet [Flagyl] 500 mg=1 tab, PO, Q12H, # 14 tab, 0 Refill(s) Active 11/04/2014 [facility] doxycycline monohydrate 100 mg oral tablet 100 mg=1 tab, PO, Q12H, # 20 tab, 0 Refill(s) Active 11/04/2014 [facility] Flagyl 1,000 mg, Route: PO, ONCE, Dosing Weight 97.727, kg, Priority: STAT, Start date: 11/04/14 11:53:00, Stop date: 11/04/14 11:53:00 Inactive 11/04/2014 [facility] Rocephin 250 mg, Route: IM, Drug form: PDR/INJ, ONCE, Dosing Weight 97.727, kg, Priority: STAT, Start date: 11/04/14 11:53:00, Stop date: 11/04/14 11:53:00 Inactive 11/04/2014 [facility] Ketorolac 30 mg, Route: IVP, Drug form: INJ, ONCE, Dosing Weight 97.727, kg, Priority: STAT, Start date: 11/04/14 8:48:00, Stop date: 11/04/14 8:48:00 Inactive 11/04/2014 [facility] Ondansetron 4 MG Disintegrating Tablet 4 mg=1 tab, PO, TID, Nausea / Vomiting, Dissolve tab under tongue, # 10 tab, 0 Refill(s)Special Instructions: Dissolve tab under tongue Active 10/30/2014 [facility] Sulfamethoxazole 800 MG / Trimethoprim 160 MG Oral Tablet [Bactrim] 1 tab, PO, BID, # 28 tab, 0 Refill(s) Active 10/30/2014 [facility] Tylenol 975 mg, Route: PO, Drug form: TAB, ONCE, Dosing Weight 97.727, kg, Priority: STAT, Start date: 10/30/14 8:49:00, Stop date: 10/30/14 8:49:00 Inactive 10/30/2014 [facility] Morphine 4 mg, Route: IVP, ONCE, Dosing Weight 97.727, kg, Priority: STAT, Start date: 10/30/14 8:08:00, Stop date: 10/30/14 8:08:00 Inactive 10/30/2014 [facility] Ondansetron 4 mg, Route: IVP, ONCE, Dosing Weight 97.727, kg, Priority: STAT, Start date: 10/30/14 8:08:00, Stop date: 10/30/14 8:08:00 Inactive 10/30/2014 [facility] Saline Flush 0.9% 10 mL, Route: IVP, Drug Form: INJ, Dosing Weight 97.727, kg, PRN, PRN Line Flush, Start date: 10/30/14 8:08:00, Duration: 30 day, Stop date: 11/29/14 9:07:00Notes: (Same as: BD Posiflush) Inactive 10/30/2014 [facility] Sodium Chloride 0.154 MEQ/ML Injectable Solution 1,000 mL, Infuse Over: 1 hr, Route: IV, ONCE, Priority: STAT, Dosing Weight 97.727 kg, Start date: 10/30/14 8:08:00, Duration: 1 doses or times, Stop date: 10/30/14 8:08:00 Inactive 10/30/2014 [facility] Phenazopyridine hydrochloride 200 MG Oral Tablet [Pyridium] 200 mg=1 tab, PO, TID, # 21 tab, 0 Refill(s) Active 06/23/2014 [facility] Nitrofurantoin 100 MG Oral Capsule [Macrodantin] 100 mg=1 cap, PO, QID, # 28 cap, 0 Refill(s) Active 06/23/2014 [facility] Hydrocortisone 10 MG/ML / Neomycin 3.5 MG/ML / Polymyxin B 05604 UNT/ML Otic Solution 4 drp, RIGHT EAR, QID, # 10 mL, 0 Refill(s) Active 06/23/2014 [facility] Ondansetron 4 mg, Route: IVP, Drug form: INJ, ONCE, Dosing Weight 52.273, kg, Priority: STAT, Start date: 06/23/14 9:02:00, Stop date: 06/23/14 9:02:00 Inactive 06/23/2014 [facility] Sodium Chloride 0.154 MEQ/ML Injectable Solution 1,000 mL, 1,000 ml/hr, Infuse Over: 1 hr, Route: IV, ONCE, Priority: STAT, Dosing Weight 52.273 kg, Start date: 06/23/14 9:02:00, Duration: 1 doses or times, Stop date: 06/23/14 9:02:00 Inactive 06/23/2014 [facility] Albuterol 0.833 MG/ML / Ipratropium Robbins 0.167 MG/ML Inhalant Solution [DuoNeb] 3 mL, INHALATION, TID, Wheezing, # 90 mL, 0 Refill(s) Active 06/10/2014 [facility] predniSONE 20 mg oral tablet 60 mg=3 tab, PO, Daily, Take 3 tablets for 60 mg dose, # 9 tab, 0 Refill(s)Special Instructions: Take 3 tablets for 60 mg dose Active 06/10/2014 [facility] 200 ACTUAT Ipratropium Robbins 0.017 MG/ACTUAT Metered Dose Inhaler [Atrovent] 1 puff, INHALATION, QID, wheezing, # 1 ea, 0 Refill(s) Active 06/10/2014 [facility] Albuterol 0.83 MG/ML Inhalant Solution 2.49 mg=3 mL, INHALATION, Q6H, # 120 ea, 0 Refill(s) Active 06/10/2014 [facility] Prednisone 60 mg, 3 tab, Route: PO, Drug form: TAB, ONCE, Dosing Weight 97.727, kg, Priority: STAT, Start date: 06/10/14 4:19:00, Stop date: 06/10/14 4:19:00Notes: Take with food. Inactive 06/10/2014 [facility] Albuterol 0.833 MG/ML / Ipratropium Robbins 0.167 MG/ML Inhalant Solution [DuoNeb] 3 mL, Route: INHALATION, Dosing Weight 97.727, kg, ONCE, STAT, Start date: 06/10/14 4:02:00, Stop date: 06/10/14 4:02:00 Inactive 06/10/2014 [facility] Protonix 40 mg oral enteric coated tablet 40 mg, 1 tab, PO, Daily, 30 tab, Substitution Allowed, ECTAB PO Active [place] 07/09/2012 [facility] Ultram 50 mg oral tablet 50 mg, 1 tab, PO, Q4H, PRN, 20 tab, pain, Substitution Allowed PO Active [place] 07/09/2012 [facility] ondansetron 4 mg oral tablet, disintegrating 4 mg, Route: PO, Drug form: TABDIS, ONCE, Dosing Weight 98.636, kg, Priority: STAT, Start date: 07/08/12 23:26:00, Stop date: 07/08/12 23:26:00 PO No Longer Active [place] 07/09/2012 [facility] Sodium Chloride 0.9% (Bolus) IV 1000 mL 1,000 mL, Rate: 1,000 ml/hr, Infuse over: 1 hr, Route: IV, Dosing Weight 98.636 kg, Total Volume: 1,000, Bolus Dose, Priority: STAT, Start date: 07/08/12 22:50:00, Duration: 1 doses or times, Stop date: 07/08/12 23:49:00 IV No Longer Active [place] 07/09/2012 [facility] morphine Sulfate 4 mg, Route: IVP, ONCE, Dosing Weight 98.636, kg, Priority: STAT, Start date: 07/08/12 22:50:00, Stop date: 07/08/12 22:50:00 IVP No Longer Active [place] 07/09/2012 [facility] METRONIDazole 500 mg oral tablet 500 mg, 1 tab, PO, Q12H, 14 tab, Substitution Allowed PO Active [place] 04/16/2012 [facility] naproxen 500 mg oral tablet 500 mg, 1 tab, PO, BID, PRN, 30 tab, Pain, Substitution Allowed PO Active [place] 04/16/2012 [facility] DuoNeb inhalation solution 3 ml, INHALATION, QID, PRN, 30 ea, as needed for shortness of breath or wheezing, Substitution Allowed, Maintenance, SOLN INHALATION Active [place] 11/11/2011 [facility] DuoNeb inhalation solution 3 ml, Route: INHALATION, Drug Form: SOLN, QID, PRN See Respiratory Notes, Start date: 11/10/11 23:16:00, Duration: 30 day, Stop date: 12/10/11 23:15:00, once INHALATION No Longer Active [place] 11/11/2011 [facility] Motrin Route: PO, ONCE, Start date: 11/10/11 23:15:00, Stop date: 11/10/11 23:15:00 PO No Longer Active [place] 11/11/2011 [facility] Ultram 50 mg oral tablet 1 - 2 tabs, PO, Q4-6H, PRN, 30 tab, as needed for pain, Substitution Allowed PO Active [place] 11/11/2011 [facility] Saline Flush 0.9% 5 ml, Route: IVP, PRN, PRN Line Flush, Start date: 11/10/11 22:05:00, Duration: 24 hr, Stop date: 11/11/11 22:04:00 IVP No Longer Active [place] 11/11/2011 [facility] Ultram 50 mg oral tablet 50 mg, 1 tab, Route: PO, Drug form: TAB, Q4H, PRN Pain, Start date: 11/10/11 21:59:00, Duration: 30 day, Stop date: 12/10/11 21:58:00 PO No Longer Active [place] 11/11/2011 [facility] doxycycline hyclate 100 mg oral tablet 100 mg, 1 tab, PO, BID, 20 tab, Substitution Allowed, TAB PO Active [facility] 10/16/2011 [facility] Naprosyn 500 mg oral tablet 500 mg, 1 tab, PO, BID, 20 tab, Substitution Allowed, TAB PO Active [facility] 10/16/2011 [facility] Saline Flush 0.9% 5 ml, Route: IVP, Drug Form: INJ, PRN, PRN Line Flush, Start date: 10/15/11 13:56:00, Duration: 24 hr, Stop date: 10/16/11 13:55:00 IVP No Longer Active [facility] 10/15/2011 [facility] Allergies, Adverse Reactions, Alerts Substance Category Reaction Severity Reaction type Status Date Reported Comments Source Cipro Assertion Drug allergy Active [facility] erythromycin Assertion Drug allergy Active [facility] hydrocodone Assertion Drug allergy Active [facility] Phenergan Assertion Drug allergy Active [facility] Stadol Assertion Drug allergy Active [facility] predniSONE Assertion Drug allergy Active [facility] aspirin Assertion Drug allergy Active [facility] nitrous oxide Assertion Drug allergy Active [facility] HYDROcodone Assertion Drug allergy Active [facility] ciprofloxacin Assertion Drug allergy Active [facility] Immunizations No Data Provided for This Section Results Order Name Results Value Reference Range Date Interpretation Comments Source CARDIAC ENZYMES Troponin-I <0.02 0.00 - 0.40 07/30/2017 [facility] CARDIAC ENZYMES Total CK 74 12 - 191 07/30/2017 [facility] CARDIAC ENZYMES CK MB 0.7 0.5 - 3.6 07/30/2017 [facility] CARDIAC ENZYMES CK MB Index 0.9 0.0 - 2.5 07/30/2017 [facility] CARDIAC ENZYMES Troponin-I <0.02 0.00 - 0.40 07/30/2017 [facility] CARDIAC ENZYMES Total CK 80 12 - 191 07/30/2017 [facility] LIPIDS VLDL 13 07/30/2017 [facility] LIPIDS LDL (Calculated) 87 <=99 mg/dL 07/30/2017 [facility] LIPIDS Chol 186 <=199 mg/dL 07/30/2017 [facility] LIPIDS Trig 66 <=149 mg/dL 07/30/2017 [facility] LIPIDS HDL 86 >=61 mg/dL 07/30/2017 [facility] LIPIDS CHD Risk 2.16 3.90 - 5.80 07/30/2017 [facility] CARDIAC ENZYMES Total CK 91 12 - 191 07/30/2017 [facility] CARDIAC ENZYMES CK MB 0.8 0.5 - 3.6 07/30/2017 [facility] CARDIAC ENZYMES Troponin-I <0.02 0.00 - 0.40 07/30/2017 [facility] CARDIAC ENZYMES CK MB Index 0.9 0.0 - 2.5 07/30/2017 [facility] CHEM PANEL Lipase Lvl 207 73 - 393 07/30/2017 [facility] CHEM PANEL eGFR 106 07/30/2017 Result Comment: The eGFR is calculated [...] should be multiplied by the estimated BMI. [facility] CHEM PANEL Bili Total 0.4 0.2 - 1.3 07/30/2017 [facility] CHEM PANEL AGAP 11.5 10.0 - 20.0 07/30/2017 [facility] CHEM PANEL Alk Phos 77 39 - 136 07/30/2017 [facility] CHEM PANEL Total Protein 7.1 6.4 - 8.4 07/30/2017 [facility] CHEM PANEL ALT 28 0 - 65 07/30/2017 [facility] CHEM PANEL AST 13 0 - 37 07/30/2017 [facility] CHEM PANEL Albumin Lvl 3.4 3.5 - 5.0 07/30/2017 [facility] CHEM PANEL BUN 14 7 - 22 07/30/2017 [facility] CHEM PANEL Glucose Lvl 177 70 - 99 07/30/2017 [facility] CHEM PANEL Creatinine Lvl 0.75 0.50 - 1.40 07/30/2017 [facility] CHEM PANEL Sodium Lvl 139 135 - 145 07/30/2017 [facility] CHEM PANEL Chloride Lvl 105 95 - 109 07/30/2017 [facility] CHEM PANEL CO2 26 24 - 32 07/30/2017 [facility] CHEM PANEL Potassium Lvl 3.5 3.5 - 5.1 07/30/2017 [facility] CHEM PANEL Calcium Lvl 9.1 8.5 - 10.5 07/30/2017 [facility] CHEM PANEL Globulin 3.7 2.7 - 4.2 07/30/2017 [facility] CHEM PANEL A/G Ratio 0.9 0.7 - 1.6 07/30/2017 [facility] CHEM PANEL B/C Ratio 19 6 - 25 07/30/2017 [facility] CHEM PANEL Ketone Quantitative 0.11 <=0.27 mmol/L 07/30/2017 [facility] DRUG SCREEN U Phencyc Scr Negative *NA* (07/30/17 9:23 AM) Negative 07/30/2017 [facility] DRUG SCREEN U Opiate Scr Negative *NA* (07/30/17 9:23 AM) Negative 07/30/2017 [facility] DRUG SCREEN U Cocaine Scr Negative *NA* (07/30/17 9:23 AM) Negative 07/30/2017 [facility] DRUG SCREEN U Benzodia Scr Negative *NA* (07/30/17 9:23 AM) Negative 07/30/2017 [facility] DRUG SCREEN U Cannab Scr Negative *NA* (07/30/17 9:23 AM) Negative 07/30/2017 [facility] DRUG SCREEN U Jocelyn Scr Negative *NA* (07/30/17 9:23 AM) Negative 07/30/2017 [facility] DRUG SCREEN U Amph Scr Negative *NA* (07/30/17 9:23 AM) Negative 07/30/2017 [facility] DRUG SCREEN UDS Note See Note *NA* (07/30/17 9:23 AM) 07/30/2017 [facility] ENDOCRINOLOGY S Preg Negative *NA* (07/30/17 9:23 AM) Negative 07/30/2017 [facility] HEMATOLOGY PTT 30.2 22.9 - 35.8 07/30/2017 [facility] HEMATOLOGY PT 13.7 12.0 - 14.7 07/30/2017 [facility] HEMATOLOGY INR 1.05 0.85 - 1.17 07/30/2017 [facility] HEMATOLOGY D-Dimer <0.27 07/30/2017 [facility] HEMATOLOGY MCHC 33.1 32.0 - 36.0 07/30/2017 [facility] HEMATOLOGY RDW 14.8 11.5 - 14.5 07/30/2017 [facility] HEMATOLOGY MPV 8.8 7.4 - 10.4 07/30/2017 [facility] HEMATOLOGY Platelet 296 133 - 450 07/30/2017 [facility] HEMATOLOGY Hgb 12.2 12.0 - 16.0 07/30/2017 [facility] HEMATOLOGY Hct 36.7 36.0 - 48.0 07/30/2017 [facility] HEMATOLOGY RBC 4.55 4.20 - 5.40 07/30/2017 [facility] HEMATOLOGY WBC 9.9 3.7 - 10.4 07/30/2017 [facility] HEMATOLOGY MCH 26.7 27.0 - 31.0 07/30/2017 [facility] HEMATOLOGY MCV 80.8 80.0 - 98.0 07/30/2017 [facility] HEMATOLOGY Segs-Bands # 6.6 1.5 - 8.1 07/30/2017 [facility] HEMATOLOGY Lymphocytes # 2.5 1.0 - 5.5 07/30/2017 [facility] HEMATOLOGY Basophils # 0.1 0.0 - 0.2 07/30/2017 [facility] HEMATOLOGY Monocytes # 0.4 0.0 - 0.8 07/30/2017 [facility] HEMATOLOGY Eosinophils # 0.2 0.0 - 0.5 07/30/2017 [facility] HEMATOLOGY Segs 67.5 45.0 - 75.0 07/30/2017 [facility] HEMATOLOGY Lymphocytes 25.3 20.0 - 40.0 07/30/2017 [facility] HEMATOLOGY Eosinophils 2.4 0.0 - 4.0 07/30/2017 [facility] HEMATOLOGY Basophils 0.7 0.0 - 1.0 07/30/2017 [facility] HEMATOLOGY Monocytes 4.1 2.0 - 12.0 07/30/2017 [facility] URINE AND STOOL UA Urobilinogen <=1.0 mg/dL 0.1 - 1.0 07/30/2017 [facility] URINE AND STOOL UA Bili Negative *NA* (07/30/17 9:23 AM) Negative 07/30/2017 [facility] URINE AND STOOL UA Ketones Negative mg/dL Negative mg/dL 07/30/2017 [facility] URINE AND STOOL UA Glucose 50 mg/dL Negative mg/dL 07/30/2017 [facility] URINE AND STOOL UA Sq Epi Few /LPF Few /LPF 07/30/2017 [facility] URINE AND STOOL UA Leuk Est Trace *ABN* (07/30/17 9:23 AM) Negative 07/30/2017 [facility] URINE AND STOOL UA Nitrite Negative (07/30/17 9:23 AM) Negative 07/30/2017 [facility] URINE AND STOOL UA Blood Negative (07/30/17 9:23 AM) Negative 07/30/2017 [facility] URINE AND STOOL UA Bacteria Occasional /HPF None Seen /HPF 07/30/2017 [facility] URINE AND STOOL UA RBC <1 0 - 2 07/30/2017 [facility] URINE AND STOOL UA WBC 4 0 - 5 07/30/2017 [facility] URINE AND STOOL UA Mucus Few /LPF None Seen /LPF 07/30/2017 [facility] URINE AND STOOL UA pH 7.0 5.0 - 8.0 07/30/2017 [facility] URINE AND STOOL UA Spec Grav 1.006 <=1.030 07/30/2017 [facility] URINE AND STOOL UA Protein Negative mg/dL Negative mg/dL 07/30/2017 [facility] URINE AND STOOL UA Turbidity Clear (07/30/17 9:23 AM) Clear 07/30/2017 [facility] URINE AND STOOL UA Color Light Yellow *NA* (07/30/17 9:23 AM) Yellow 07/30/2017 [facility] CHEM PANEL Bili Total 0.2 0.2 - 1.3 09/21/2016 [facility] CHEM PANEL eGFR 101 09/21/2016 Result Comment: The eGFR is calculated [...] should be multiplied by the estimated BMI. [facility] CHEM PANEL Glucose Lvl 210 70 - 99 09/21/2016 [facility] CHEM PANEL Creatinine Lvl 0.78 0.50 - 1.40 09/21/2016 [facility] CHEM PANEL Sodium Lvl 136 135 - 145 09/21/2016 [facility] CHEM PANEL BUN 13 7 - 22 09/21/2016 [facility] CHEM PANEL Total Protein 7.3 6.4 - 8.4 09/21/2016 [facility] CHEM PANEL Albumin Lvl 3.3 3.5 - 5.0 09/21/2016 [facility] CHEM PANEL ALT 23 0 - 65 09/21/2016 [facility] CHEM PANEL Alk Phos 74 39 - 136 09/21/2016 [facility] CHEM PANEL AST 11 0 - 37 09/21/2016 [facility] CHEM PANEL CO2 20 24 - 32 09/21/2016 [facility] CHEM PANEL Calcium Lvl 8.3 8.5 - 10.5 09/21/2016 [facility] CHEM PANEL Chloride Lvl 103 95 - 109 09/21/2016 [facility] CHEM PANEL Potassium Lvl 3.1 3.5 - 5.1 09/21/2016 [facility] CHEM PANEL A/G Ratio 0.8 0.7 - 1.6 09/21/2016 [facility] CHEM PANEL AGAP 16.1 10.0 - 20.0 09/21/2016 [facility] CHEM PANEL B/C Ratio 17 6 - 25 09/21/2016 [facility] CHEM PANEL Globulin 4.0 2.7 - 4.2 09/21/2016 [facility] [place] [id number] 09/21/2016 [facility] HEMATOLOGY Monocytes # 0.6 0.0 - 0.8 09/21/2016 [facility] HEMATOLOGY Eosinophils # 0.2 0.0 - 0.5 09/21/2016 [facility] HEMATOLOGY Segs-Bands # 7.0 1.5 - 8.1 09/21/2016 [facility] HEMATOLOGY Lymphocytes # 2.3 1.0 - 5.5 09/21/2016 [facility] HEMATOLOGY Basophils 2.9 0.0 - 1.0 09/21/2016 [facility] HEMATOLOGY Eosinophils 1.8 0.0 - 4.0 09/21/2016 [facility] HEMATOLOGY Lymphocytes 22.2 20.0 - 40.0 09/21/2016 [facility] HEMATOLOGY Monocytes 6.0 2.0 - 12.0 09/21/2016 [facility] HEMATOLOGY Segs 67.1 45.0 - 75.0 09/21/2016 [facility] Basophils # 0.3 0.0 - 0.2 09/21/2016 [facility] MPV 9.4 7.4 - 10.4 09/21/2016 [facility] RDW 14.8 11.5 - 14.5 09/21/2016 [facility] Platelet 303 133 - 450 09/21/2016 [facility] MCH 26.0 27.0 - 31.0 09/21/2016 [facility] MCHC 32.6 32.0 - 36.0 09/21/2016 [facility] MCV 79.8 80.0 - 98.0 09/21/2016 [facility] Hct 37.8 36.0 - 48.0 09/21/2016 [facility] RBC 4.74 4.20 - 5.40 09/21/2016 [facility] Hgb 12.3 12.0 - 16.0 09/21/2016 [facility] WBC 10.4 3.7 - 10.4 09/21/2016 [facility] URINE AND STOOL UA Nitrite Negative (09/21/16 1:09 PM) Negative 09/21/2016 [facility] URINE AND STOOL UA Leuk Est Moderate *ABN* (09/21/16 1:09 PM) Negative 09/21/2016 [facility] URINE AND STOOL UA Blood Small *ABN* (09/21/16 1:09 PM) Negative 09/21/2016 [facility] URINE AND STOOL UA Urobilinogen <=1.0 mg/dL 0.1 - 1.0 09/21/2016 [facility] URINE AND STOOL UA Spec Grav 1.018 <=1.030 09/21/2016 [facility] URINE AND STOOL UA Color Light Yellow *NA* (09/21/16 1:09 PM) Yellow 09/21/2016 [facility] URINE AND STOOL UA Turbidity Slight *ABN* (09/21/16 1:09 PM) Clear 09/21/2016 [facility] URINE AND STOOL UA Bili Negative *NA* (09/21/16 1:09 PM) Negative 09/21/2016 [facility] URINE AND STOOL UA Ketones 20 mg/dL Negative mg/dL 09/21/2016 [facility] URINE AND STOOL UA Glucose 500 mg/dL Negative mg/dL 09/21/2016 [facility] URINE AND STOOL UA Protein Negative mg/dL Negative mg/dL 09/21/2016 [facility] URINE AND STOOL UA pH 6.0 5.0 - 8.0 09/21/2016 [facility] URINE AND STOOL UA RBC 3 0 - 2 09/21/2016 [facility] URINE AND STOOL UA WBC 56 0 - 5 09/21/2016 [facility] URINE AND STOOL UA Sq Epi Many /LPF Few /LPF 09/21/2016 [facility] URINE AND STOOL UA Mucus Few /LPF None Seen /LPF 09/21/2016 [facility] URINE AND STOOL UA Bacteria Few /HPF None Seen /HPF 09/21/2016 [facility] MOLECULAR DIAGNOSTIC N gonorrhea by Amp Det (APTIMA) Negative *NA* (09/16/16 5:09 PM) Negative 09/16/2016 [facility] MOLECULAR DIAGNOSTIC Source APTIMA Vaginal (09/16/16 5:09 PM) 09/16/2016 [facility] MOLECULAR DIAGNOSTIC C trachomatis by Amp Det (APTIMA) Negative *NA* (09/16/16 5:09 PM) Negative 09/16/2016 [facility] MOLECULAR DIAGNOSTIC Source APTIMA Vaginal (09/16/16 5:09 PM) 09/16/2016 [facility] URINE AND STOOL UA Color Ltyellow 09/16/2016 [facility] URINE AND STOOL UA Urobilinogen <=1.0 mg/dL 0.1 - 1.0 09/16/2016 [facility] URINE AND STOOL UA Sq Epi Few /LPF Few /LPF 09/16/2016 [facility] URINE AND STOOL UA Bacteria Occasional /HPF None Seen /HPF 09/16/2016 [facility] URINE AND STOOL UA RBC 1 0 - 2 09/16/2016 [facility] URINE AND STOOL UA Mucus Few /LPF None Seen /LPF 09/16/2016 [facility] URINE AND STOOL UA WBC 20 0 - 5 09/16/2016 [facility] URINE AND STOOL UA Spec Grav 1.015 <=1.030 09/16/2016 [facility] URINE AND STOOL UA Turbidity Clear (09/16/16 3:19 PM) Clear 09/16/2016 [facility] URINE AND STOOL UA Ketones 20 mg/dL Negative mg/dL 09/16/2016 [facility] URINE AND STOOL UA Bili Negative *NA* (09/16/16 3:19 PM) Negative 09/16/2016 [facility] URINE AND STOOL UA Protein Negative mg/dL Negative mg/dL 09/16/2016 [facility] URINE AND STOOL UA Glucose Negative mg/dL Negative mg/dL 09/16/2016 [facility] URINE AND STOOL UA pH 5.0 5.0 - 8.0 09/16/2016 [facility] URINE AND STOOL UA Blood Moderate *ABN* (09/16/16 3:19 PM) Negative 09/16/2016 [facility] URINE AND STOOL UA Nitrite Negative (09/16/16 3:19 PM) Negative 09/16/2016 [facility] URINE AND STOOL UA Leuk Est Moderate *ABN* (09/16/16 3:19 PM) Negative 09/16/2016 [facility] URINE CHEM U Preg Positive *ABN* (09/16/16 3:19 PM) Negative 09/16/2016 [facility] BLOOD BANK RESULTS ABO/Rh B POS 09/16/2016 [facility] CHEM PANEL eGFR 105 09/16/2016 Result Comment: The eGFR is calculated [...] should be multiplied by the estimated BMI. [facility] CHEM PANEL CO2 23 24 - 32 09/16/2016 [facility] CHEM PANEL Albumin Lvl 3.4 3.5 - 5.0 09/16/2016 [facility] CHEM PANEL ALT 25 0 - 65 09/16/2016 [facility] CHEM PANEL Calcium Lvl 8.2 8.5 - 10.5 09/16/2016 [facility] CHEM PANEL Total Protein 7.7 6.4 - 8.4 09/16/2016 [facility] CHEM PANEL Glucose Lvl 156 70 - 99 09/16/2016 [facility] CHEM PANEL BUN 9 7 - 22 09/16/2016 [facility] CHEM PANEL Potassium Lvl 3.4 3.5 - 5.1 09/16/2016 [facility] CHEM PANEL Chloride Lvl 101 95 - 109 09/16/2016 [facility] CHEM PANEL Creatinine Lvl 0.76 0.50 - 1.40 09/16/2016 [facility] CHEM PANEL Sodium Lvl 134 135 - 145 09/16/2016 [facility] CHEM PANEL AST 21 0 - 37 09/16/2016 [facility] CHEM PANEL Alk Phos 77 39 - 136 09/16/2016 [facility] CHEM PANEL Bili Total 0.4 0.2 - 1.3 09/16/2016 [facility] CHEM PANEL Globulin 4.3 2.7 - 4.2 09/16/2016 [facility] CHEM PANEL A/G Ratio 0.8 0.7 - 1.6 09/16/2016 [facility] CHEM PANEL B/C Ratio 12 6 - 25 09/16/2016 [facility] CHEM PANEL AGAP 13.4 10.0 - 20.0 09/16/2016 [facility] ENDOCRINOLOGY hCG Tot [id number] 09/16/2016 [facility] HEMATOLOGY Eosinophils 2.9 0.0 - 4.0 09/16/2016 [facility] HEMATOLOGY Lymphocytes 28.8 20.0 - 40.0 09/16/2016 [facility] HEMATOLOGY Monocytes 5.1 2.0 - 12.0 09/16/2016 [facility] HEMATOLOGY Basophils # 0.1 0.0 - 0.2 09/16/2016 [facility] HEMATOLOGY Monocytes # 0.5 0.0 - 0.8 09/16/2016 [facility] HEMATOLOGY Eosinophils # 0.3 0.0 - 0.5 09/16/2016 [facility] HEMATOLOGY Segs-Bands # 6.3 1.5 - 8.1 09/16/2016 [facility] HEMATOLOGY Basophils 0.6 0.0 - 1.0 09/16/2016 [facility] Lymphocytes # 2.9 1.0 - 5.5 09/16/2016 [facility] Segs 62.6 45.0 - 75.0 09/16/2016 [facility] WBC 10.1 3.7 - 10.4 09/16/2016 [facility] MPV 9.3 7.4 - 10.4 09/16/2016 [facility] RDW 14.9 11.5 - 14.5 09/16/2016 [facility] Platelet 320 133 - 450 09/16/2016 [facility] MCV 80.2 80.0 - 98.0 09/16/2016 [facility] Hct 41.8 36.0 - 48.0 09/16/2016 [facility] MCHC 32.2 32.0 - 36.0 09/16/2016 [facility] MCH 25.8 27.0 - 31.0 09/16/2016 [facility] Hgb 13.5 12.0 - 16.0 09/16/2016 [facility] RBC 5.22 4.20 - 5.40 09/16/2016 [facility] URINE AND STOOL UA Urobilinogen <=1.0 mg/dL 0.1 - 1.0 07/13/2016 [facility] URINE AND STOOL UA Mucus Few /LPF None Seen /LPF 07/13/2016 [facility] URINE AND STOOL UA RBC 3 0 - 2 07/13/2016 [facility] URINE AND STOOL UA Glucose 50 mg/dL Negative mg/dL 07/13/2016 [facility] URINE AND STOOL UA Ketones Trace mg/dL Negative mg/dL 07/13/2016 [facility] URINE AND STOOL UA Leuk Est Moderate *ABN* (07/13/16 12:42 AM) Negative 07/13/2016 [facility] URINE AND STOOL UA Bili Negative *NA* (07/13/16 12:42 AM) Negative 07/13/2016 [facility] URINE AND STOOL UA Protein Negative mg/dL Negative mg/dL 07/13/2016 [facility] URINE AND STOOL UA Blood Small *ABN* (07/13/16 12:42 AM) Negative 07/13/2016 [facility] URINE AND STOOL UA Sq Epi Many /LPF Few /LPF 07/13/2016 [facility] URINE AND STOOL UA WBC 16 0 - 5 07/13/2016 [facility] URINE AND STOOL UA Nitrite Negative (07/13/16 12:42 AM) Negative 07/13/2016 [facility] URINE AND STOOL UA Bacteria Occasional /HPF None Seen /HPF 07/13/2016 [facility] URINE AND STOOL UA pH 5.0 5.0 - 8.0 07/13/2016 [facility] URINE AND STOOL UA Spec Grav 1.025 <=1.030 07/13/2016 [facility] URINE AND STOOL UA Turbidity Slight *ABN* (07/13/16 12:42 AM) Clear 07/13/2016 [facility] URINE AND STOOL UA Color Yellow *NA* (07/13/16 12:42 AM) Yellow 07/13/2016 [facility] CARDIAC ENZYMES CK MB 0.7 0.5 - 3.6 07/13/2016 [facility] CARDIAC ENZYMES Total CK 68 12 - 191 07/13/2016 [facility] CARDIAC ENZYMES Troponin-I <0.02 0.00 - 0.40 07/13/2016 [facility] CARDIAC ENZYMES CK MB Index 1.0 0.0 - 2.5 07/13/2016 [facility] CHEM PANEL Bili Total 0.3 0.2 - 1.3 07/13/2016 [facility] CHEM PANEL A/G Ratio 0.9 0.7 - 1.6 07/13/2016 [facility] CHEM PANEL Total Protein 7.7 6.4 - 8.4 07/13/2016 [facility] CHEM PANEL Globulin 4.1 2.7 - 4.2 07/13/2016 [facility] CHEM PANEL AST 26 0 - 37 07/13/2016 [facility] CHEM PANEL ALT 41 0 - 65 07/13/2016 [facility] CHEM PANEL Alk Phos 84 39 - 136 07/13/2016 [facility] CHEM PANEL Albumin Lvl 3.6 3.5 - 5.0 07/13/2016 [facility] CHEM PANEL eGFR 93 07/13/2016 Result Comment: The eGFR is calculated [...] should be multiplied by the estimated BMI. [facility] CHEM PANEL Chloride Lvl 104 95 - 109 07/13/2016 [facility] CHEM PANEL CO2 23 24 - 32 07/13/2016 [facility] CHEM PANEL Sodium Lvl 137 135 - 145 07/13/2016 [facility] CHEM PANEL Potassium Lvl 3.6 3.5 - 5.1 07/13/2016 [facility] CHEM PANEL B/C Ratio 20 6 - 25 07/13/2016 [facility] CHEM PANEL Calcium Lvl 8.6 8.5 - 10.5 07/13/2016 [facility] CHEM PANEL AGAP 13.6 10.0 - 20.0 07/13/2016 [facility] CHEM PANEL Glucose Lvl 204 70 - 99 07/13/2016 [facility] CHEM PANEL BUN 17 7 - 22 07/13/2016 [facility] CHEM PANEL Creatinine Lvl 0.84 0.50 - 1.40 07/13/2016 [facility] HEMATOLOGY PTT 30.9 22.9 - 35.8 07/13/2016 [facility] HEMATOLOGY RBC 4.81 4.20 - 5.40 07/13/2016 [facility] HEMATOLOGY RDW 14.7 11.5 - 14.5 07/13/2016 [facility] HEMATOLOGY Platelet 336 133 - 450 07/13/2016 [facility] HEMATOLOGY Hgb 12.3 12.0 - 16.0 07/13/2016 [facility] HEMATOLOGY Hct 38.1 36.0 - 48.0 07/13/2016 [facility] [facility] HEMATOLOGY WBC 11.1 3.7 - 10.4 07/13/2016 [facility] MPV 9.1 7.4 - 10.4 07/13/2016 [facility] MCH 25.6 27.0 - 31.0 07/13/2016 [facility] MCHC 32.3 32.0 - 36.0 07/13/2016 [facility] HEMATOLOGY MCV 79.2 80.0 - 98.0 07/13/2016 [facility] HEMATOLOGY PT 14.6 12.0 - 14.7 07/13/2016 [facility] HEMATOLOGY INR 1.12 0.85 - 1.17 07/13/2016 [facility] D-Dimer <0.22 07/13/2016 [facility] Eosinophils # 0.3 0.0 - 0.5 07/13/2016 [facility] HEMATOLOGY Basophils # 0.1 0.0 - 0.2 07/13/2016 [facility] HEMATOLOGY Segs-Bands # 6.9 1.5 - 8.1 07/13/2016 [facility] HEMATOLOGY Eosinophils 2.6 0.0 - 4.0 07/13/2016 [facility] Segs 61.7 45.0 - 75.0 07/13/2016 [facility] Lymphocytes # 3.4 1.0 - 5.5 07/13/2016 [facility] Monocytes # 0.5 0.0 - 0.8 07/13/2016 [facility] Basophils 0.6 0.0 - 1.0 07/13/2016 [facility] Lymphocytes 30.7 20.0 - 40.0 07/13/2016 [facility] Monocytes 4.4 2.0 - 12.0 07/13/2016 [facility] URINE CHEM U Preg Negative (07/10/16 1:06 PM) Negative 07/10/2016 [facility] CARDIAC ENZYMES CK MB Index 1.4 0.0 - 2.5 07/07/2016 [facility] CARDIAC ENZYMES Troponin-I <0.02 0.00 - 0.40 07/07/2016 [facility] CARDIAC ENZYMES Total CK 51 12 - 191 07/07/2016 [facility] CARDIAC ENZYMES CK MB 0.7 0.5 - 3.6 07/07/2016 [facility] CHEM PANEL eGFR 103 07/07/2016 Result Comment: The eGFR is calculated [...] by the estimated BMI. [facility] CHEM PANEL Glucose Lvl 187 70 - 99 07/07/2016 [facility] CHEM PANEL BUN 18 7 - 22 07/07/2016 [facility] CHEM PANEL Chloride Lvl 106 95 - 109 07/07/2016 [facility] CHEM PANEL Sodium Lvl 137 135 - 145 07/07/2016 [facility] CHEM PANEL Potassium Lvl 3.2 3.5 - 5.1 07/07/2016 [facility] CHEM PANEL Creatinine Lvl 0.77 0.50 - 1.40 07/07/2016 [facility] CHEM PANEL A/G Ratio 0.9 0.7 - 1.6 07/07/2016 [facility] CHEM PANEL Globulin 3.8 2.7 - 4.2 07/07/2016 [facility] CHEM PANEL Albumin Lvl 3.3 3.5 - 5.0 07/07/2016 [facility] CHEM PANEL ALT 30 0 - 65 07/07/2016 [facility] CHEM PANEL Calcium Lvl 8.4 8.5 - 10.5 07/07/2016 [facility] CHEM PANEL Total Protein 7.1 6.4 - 8.4 07/07/2016 [facility] CHEM PANEL Alk Phos 83 39 - 136 07/07/2016 [facility] CHEM PANEL AGAP 12.2 10.0 - 20.0 07/07/2016 [facility] CHEM PANEL B/C Ratio 23 6 - 25 07/07/2016 [facility] CHEM PANEL Bili Total 0.2 0.2 - 1.3 07/07/2016 [facility] CHEM PANEL CO2 22 24 - 32 07/07/2016 [facility] CHEM PANEL AST 20 0 - 37 07/07/2016 [facility] HEMATOLOGY Eosinophils # 0.3 0.0 - 0.5 07/07/2016 [facility] HEMATOLOGY Lymphocytes # 3.3 1.0 - 5.5 07/07/2016 [facility] HEMATOLOGY Monocytes # 0.6 0.0 - 0.8 07/07/2016 [facility] HEMATOLOGY Segs-Bands # 7.1 1.5 - 8.1 07/07/2016 [facility] HEMATOLOGY Monocytes 5.1 2.0 - 12.0 07/07/2016 [facility] HEMATOLOGY Eosinophils 2.9 0.0 - 4.0 07/07/2016 [facility] HEMATOLOGY Segs 62.8 45.0 - 75.0 07/07/2016 [facility] HEMATOLOGY Lymphocytes 29.0 20.0 - 40.0 07/07/2016 [facility] HEMATOLOGY Basophils 0.2 0.0 - 1.0 07/07/2016 [facility] HEMATOLOGY PTT 29.9 22.9 - 35.8 07/07/2016 [facility] HEMATOLOGY INR 1.06 0.85 - 1.17 07/07/2016 [facility] HEMATOLOGY PT 14.0 12.0 - 14.7 07/07/2016 [facility] HEMATOLOGY Platelet 316 133 - 450 07/07/2016 [facility] HEMATOLOGY MPV 8.8 7.4 - 10.4 07/07/2016 [facility] HEMATOLOGY RDW 14.6 11.5 - 14.5 07/07/2016 [facility] MCHC 32.2 32.0 - 36.0 07/07/2016 [facility] HEMATOLOGY Hct 36.3 36.0 - 48.0 07/07/2016 [facility] HEMATOLOGY WBC 11.3 3.7 - 10.4 07/07/2016 [facility] HEMATOLOGY Hgb 11.7 12.0 - 16.0 07/07/2016 [facility] HEMATOLOGY RBC 4.57 4.20 - 5.40 07/07/2016 [facility] HEMATOLOGY MCH 25.6 27.0 - 31.0 07/07/2016 [facility] HEMATOLOGY MCV 79.3 80.0 - 98.0 07/07/2016 [facility] URINE AND STOOL UA Urobilinogen <=1.0 mg/dL 0.1 - 1.0 07/07/2016 [facility] URINE AND STOOL UA Color Red 07/07/2016 [facility] URINE AND STOOL UA Nitrite Negative (07/07/16 5:15 PM) Negative 07/07/2016 [facility] URINE AND STOOL UA Leuk Est Negative (07/07/16 5:15 PM) Negative 07/07/2016 [facility] URINE AND STOOL UA Blood Large *ABN* (07/07/16 5:15 PM) Negative 07/07/2016 [facility] URINE AND STOOL UA WBC 25 0 - 5 07/07/2016 [facility] URINE AND STOOL UA Mucus Few /LPF None Seen /LPF 07/07/2016 [facility] URINE AND STOOL UA RBC >182 0 - 2 07/07/2016 [facility] URINE AND STOOL UA Sq Epi None Seen 07/07/2016 [facility] URINE AND STOOL UA Spec Grav 1.024 <=1.030 07/07/2016 [facility] URINE AND STOOL UA Ketones Negative mg/dL Negative mg/dL 07/07/2016 [facility] URINE AND STOOL UA Bili Negative *NA* (07/07/16 5:15 PM) Negative 07/07/2016 [facility] URINE AND STOOL UA pH 6.0 5.0 - 8.0 07/07/2016 [facility] URINE AND STOOL UA Glucose 50 mg/dL Negative mg/dL 07/07/2016 [facility] URINE AND STOOL UA Protein 100 mg/dL Negative mg/dL 07/07/2016 [facility] URINE AND STOOL UA Turbidity Marked *ABN* (07/07/16 5:15 PM) Clear 07/07/2016 [facility] CARDIAC ENZYMES Troponin-I <0.02 0.00 - 0.40 06/20/2016 [facility] HEMATOLOGY D-Dimer <0.22 06/20/2016 [facility] CARDIAC ENZYMES CK MB Index 1.0 0.0 - 2.5 06/19/2016 [facility] CARDIAC ENZYMES Troponin-I <0.02 0.00 - 0.40 06/19/2016 [facility] CARDIAC ENZYMES Total CK 61 12 - 191 06/19/2016 [facility] CARDIAC ENZYMES CK MB 0.6 0.5 - 3.6 06/19/2016 [facility] CHEM PANEL A/G Ratio 0.9 0.7 - 1.6 06/19/2016 [facility] CHEM PANEL AST 18 0 - 37 06/19/2016 [facility] CHEM PANEL B/C Ratio 22 6 - 25 06/19/2016 [facility] CHEM PANEL Alk Phos 82 39 - 136 06/19/2016 [facility] CHEM PANEL Globulin 3.9 2.7 - 4.2 06/19/2016 [facility] CHEM PANEL Bili Total 0.2 0.2 - 1.3 06/19/2016 [facility] CHEM PANEL AGAP 10.7 10.0 - 20.0 06/19/2016 [facility] CHEM PANEL CO2 25 24 - 32 06/19/2016 [facility] CHEM PANEL Calcium Lvl 8.6 8.5 - 10.5 06/19/2016 [facility] CHEM PANEL Albumin Lvl 3.6 3.5 - 5.0 06/19/2016 [facility] CHEM PANEL ALT 34 0 - 65 06/19/2016 [facility] CHEM PANEL Total Protein 7.5 6.4 - 8.4 06/19/2016 [facility] CHEM PANEL Potassium Lvl 3.7 3.5 - 5.1 06/19/2016 [facility] CHEM PANEL Chloride Lvl 105 95 - 109 06/19/2016 [facility] CHEM PANEL eGFR 102 06/19/2016 Result Comment: The eGFR is calculated [...] should be multiplied by the estimated BMI. [facility] CHEM PANEL Sodium Lvl 137 135 - 145 06/19/2016 [facility] CHEM PANEL Creatinine Lvl 0.78 0.50 - 1.40 06/19/2016 [facility] CHEM PANEL BUN 17 7 - 22 06/19/2016 [facility] CHEM PANEL Glucose Lvl 215 70 - 99 06/19/2016 [facility] ENDOCRINOLOGY S Preg Negative *NA* (06/18/16 10:14 PM) Negative 06/19/2016 [facility] HEMATOLOGY Eosinophils # 0.4 0.0 - 0.5 06/19/2016 [facility] HEMATOLOGY Monocytes # 0.8 0.0 - 0.8 06/19/2016 [facility] HEMATOLOGY Basophils 1.4 0.0 - 1.0 06/19/2016 [facility] HEMATOLOGY Lymphocytes # 3.4 1.0 - 5.5 06/19/2016 [facility] HEMATOLOGY Segs-Bands # 7.3 1.5 - 8.1 06/19/2016 [facility] HEMATOLOGY Basophils # 0.2 0.0 - 0.2 06/19/2016 [facility] HEMATOLOGY Eosinophils 3.0 0.0 - 4.0 06/19/2016 [facility] HEMATOLOGY Monocytes 6.3 2.0 - 12.0 06/19/2016 [facility] HEMATOLOGY Lymphocytes 28.2 20.0 - 40.0 06/19/2016 [facility] HEMATOLOGY Segs 61.1 45.0 - 75.0 06/19/2016 [facility] HEMATOLOGY Hgb 11.9 12.0 - 16.0 06/19/2016 [facility] HEMATOLOGY RBC 4.71 4.20 - 5.40 06/19/2016 [facility] HEMATOLOGY WBC 11.9 3.7 - 10.4 06/19/2016 [facility] HEMATOLOGY MCH 25.4 27.0 - 31.0 06/19/2016 [facility] HEMATOLOGY MCV 79.6 80.0 - 98.0 06/19/2016 [facility] HEMATOLOGY Hct 37.4 36.0 - 48.0 06/19/2016 [facility] HEMATOLOGY MCHC 31.9 32.0 - 36.0 06/19/2016 [facility] HEMATOLOGY RDW 14.7 11.5 - 14.5 06/19/2016 [facility] HEMATOLOGY Platelet 326 133 - 450 06/19/2016 [facility] HEMATOLOGY MPV 9.0 7.4 - 10.4 06/19/2016 [facility] URINE AND STOOL UA Bili Negative *NA* (06/18/16 8:33 PM) Negative 06/19/2016 [facility] URINE AND STOOL UA Leuk Est Negative (06/18/16 8:33 PM) Negative 06/19/2016 [facility] URINE AND STOOL UA Blood Small *ABN* (06/18/16 8:33 PM) Negative 06/19/2016 [facility] URINE AND STOOL UA Nitrite Negative (06/18/16 8:33 PM) Negative 06/19/2016 [facility] URINE AND STOOL UA Urobilinogen <=1.0 mg/dL 0.1 - 1.0 06/19/2016 [facility] URINE AND STOOL UA WBC 1 0 - 5 06/19/2016 [facility] URINE AND STOOL UA RBC 1 0 - 2 06/19/2016 [facility] URINE AND STOOL UA Color Ltyellow 06/19/2016 [facility] URINE AND STOOL UA Sq Epi Occasional /LPF Few /LPF 06/19/2016 [facility] URINE AND STOOL UA Spec Grav 1.026 <=1.030 06/19/2016 [facility] URINE AND STOOL UA pH 6.0 5.0 - 8.0 06/19/2016 [facility] URINE AND STOOL UA Turbidity Clear (06/18/16 8:33 PM) Clear 06/19/2016 [facility] URINE AND STOOL UA Ketones Negative mg/dL Negative mg/dL 06/19/2016 [facility] URINE AND STOOL UA Glucose 500 mg/dL Negative mg/dL 06/19/2016 [facility] URINE AND STOOL UA Protein Negative mg/dL Negative mg/dL 06/19/2016 [facility] URINE AND STOOL UA Urobilinogen <=1.0 mg/dL 0.1 - 1.0 05/25/2016 [facility] URINE AND STOOL UA Color Ltyellow 05/25/2016 [facility] URINE AND STOOL UA Bacteria Occasional /HPF None Seen /HPF 05/25/2016 [facility] URINE AND STOOL UA RBC 2 0 - 2 05/25/2016 [facility] URINE AND STOOL UA WBC 13 0 - 5 05/25/2016 [facility] URINE AND STOOL UA Protein Negative mg/dL Negative mg/dL 05/25/2016 [facility] URINE AND STOOL UA Ketones Trace mg/dL Negative mg/dL 05/25/2016 [facility] URINE AND STOOL UA Bili Negative *NA* (05/25/16 8:38 AM) Negative 05/25/2016 [facility] URINE AND STOOL UA Glucose 150 mg/dL Negative mg/dL 05/25/2016 [facility] URINE AND STOOL UA Blood Negative (05/25/16 8:38 AM) Negative 05/25/2016 [facility] URINE AND STOOL UA Nitrite Negative (05/25/16 8:38 AM) Negative 05/25/2016 [facility] URINE AND STOOL UA Leuk Est Large *ABN* (05/25/16 8:38 AM) Negative 05/25/2016 [facility] URINE AND STOOL UA Sq Epi Moderate /LPF Few /LPF 05/25/2016 [facility] URINE AND STOOL UA pH 6.0 5.0 - 8.0 05/25/2016 [facility] URINE AND STOOL UA Spec Grav 1.014 <=1.030 05/25/2016 [facility] URINE AND STOOL UA Turbidity Clear (05/25/16 8:38 AM) Clear 05/25/2016 [facility] URINE CHEM U Preg Negative (05/25/16 8:38 AM) Negative 05/25/2016 [facility] CHEM PANEL A/G Ratio 0.9 0.7 - 1.6 05/25/2016 [facility] CHEM PANEL Globulin 3.8 2.7 - 4.2 05/25/2016 [facility] CHEM PANEL B/C Ratio 16 6 - 25 05/25/2016 [facility] CHEM PANEL AGAP 11.1 10.0 - 20.0 05/25/2016 [facility] CHEM PANEL eGFR 87 05/25/2016 Result Comment: The eGFR is calculated [...] should be multiplied by the estimated BMI. [facility] CHEM PANEL BUN 14 7 - 22 05/25/2016 [facility] CHEM PANEL Glucose Lvl 225 70 - 99 05/25/2016 [facility] CHEM PANEL Total Protein 7.1 6.4 - 8.4 05/25/2016 [facility] CHEM PANEL CO2 25 24 - 32 05/25/2016 [facility] CHEM PANEL Calcium Lvl 8.5 8.5 - 10.5 05/25/2016 [facility] CHEM PANEL Chloride Lvl 102 95 - 109 05/25/2016 [facility] CHEM PANEL Potassium Lvl 4.1 3.5 - 5.1 05/25/2016 [facility] CHEM PANEL Sodium Lvl 134 135 - 145 05/25/2016 [facility] CHEM PANEL Creatinine Lvl 0.89 0.50 - 1.40 05/25/2016 [facility] CHEM PANEL Alk Phos 85 39 - 136 05/25/2016 [facility] CHEM PANEL AST 14 0 - 37 05/25/2016 [facility] CHEM PANEL ALT 27 0 - 65 05/25/2016 [facility] CHEM PANEL Albumin Lvl 3.3 3.5 - 5.0 05/25/2016 [facility] CHEM PANEL Bili Total 0.2 0.2 - 1.3 05/25/2016 [facility] HEMATOLOGY Basophils # 0.1 0.0 - 0.2 05/25/2016 [facility] HEMATOLOGY Eosinophils # 0.3 0.0 - 0.5 05/25/2016 [facility] HEMATOLOGY Monocytes # 0.7 0.0 - 0.8 05/25/2016 [facility] HEMATOLOGY Lymphocytes # 3.1 1.0 - 5.5 05/25/2016 [facility] Segs-Bands # 5.8 1.5 - 8.1 05/25/2016 [facility] HEMATOLOGY Eosinophils 3.2 0.0 - 4.0 05/25/2016 [facility] HEMATOLOGY Basophils 0.8 0.0 - 1.0 05/25/2016 [facility] Lymphocytes 31.1 20.0 - 40.0 05/25/2016 [facility] Monocytes 6.5 2.0 - 12.0 05/25/2016 [facility] Segs 58.4 45.0 - 75.0 05/25/2016 [facility] Platelet 296 133 - 450 05/25/2016 [facility] MPV 9.0 7.4 - 10.4 05/25/2016 [facility] RDW 14.5 11.5 - 14.5 05/25/2016 [facility] MCHC 32.4 32.0 - 36.0 05/25/2016 [facility] MCH 25.6 27.0 - 31.0 05/25/2016 [facility] MCV 79.0 80.0 - 98.0 05/25/2016 [facility] Hct 37.8 36.0 - 48.0 05/25/2016 [facility] Hgb 12.3 12.0 - 16.0 05/25/2016 [facility] RBC 4.79 4.20 - 5.40 05/25/2016 [facility] WBC 10.0 3.7 - 10.4 05/25/2016 [facility] CARDIAC ENZYMES Total CK 65 12 - 191 04/20/2016 [facility] CHEM PANEL Bili Total 0.4 0.2 - 1.3 04/20/2016 [facility] CHEM PANEL eGFR 106 04/20/2016 Result Comment: The eGFR is calculated [...] should be multiplied by the estimated BMI. [facility] CHEM PANEL Glucose Lvl 166 70 - 99 04/20/2016 [facility] CHEM PANEL Creatinine Lvl 0.75 0.50 - 1.40 04/20/2016 [facility] CHEM PANEL BUN 14 7 - 22 04/20/2016 [facility] CHEM PANEL Sodium Lvl 136 135 - 145 04/20/2016 [facility] CHEM PANEL CO2 25 24 - 32 04/20/2016 [facility] CHEM PANEL Chloride Lvl 102 95 - 109 04/20/2016 [facility] CHEM PANEL Potassium Lvl 3.7 3.5 - 5.1 04/20/2016 [facility] CHEM PANEL Calcium Lvl 8.7 8.5 - 10.5 04/20/2016 [facility] CHEM PANEL Total Protein 7.3 6.4 - 8.4 04/20/2016 [facility] CHEM PANEL Alk Phos 73 39 - 136 04/20/2016 [facility] CHEM PANEL AST 29 0 - 37 04/20/2016 [facility] CHEM PANEL ALT 35 0 - 65 04/20/2016 [facility] CHEM PANEL Albumin Lvl 3.4 3.5 - 5.0 04/20/2016 [facility] CHEM PANEL A/G Ratio 0.9 0.7 - 1.6 04/20/2016 [facility] CHEM PANEL Globulin 3.9 2.7 - 4.2 04/20/2016 [facility] CHEM PANEL B/C Ratio 19 6 - 25 04/20/2016 [facility] CHEM PANEL AGAP 12.7 10.0 - 20.0 04/20/2016 [facility] HEMATOLOGY Monocytes # 0.7 0.0 - 0.8 04/20/2016 [facility] HEMATOLOGY Eosinophils # 0.3 0.0 - 0.5 04/20/2016 [facility] HEMATOLOGY Segs 58.6 45.0 - 75.0 04/20/2016 [facility] HEMATOLOGY Basophils 0.2 0.0 - 1.0 04/20/2016 [facility] HEMATOLOGY Lymphocytes 31.7 20.0 - 40.0 04/20/2016 [facility] HEMATOLOGY Lymphocytes # 3.4 1.0 - 5.5 04/20/2016 [facility] HEMATOLOGY Segs-Bands # 6.2 1.5 - 8.1 04/20/2016 [facility] HEMATOLOGY Eosinophils 2.9 0.0 - 4.0 04/20/2016 [facility] HEMATOLOGY Monocytes 6.6 2.0 - 12.0 04/20/2016 [facility] HEMATOLOGY RBC 4.64 4.20 - 5.40 04/20/2016 [facility] HEMATOLOGY Hgb 12.0 12.0 - 16.0 04/20/2016 [facility] HEMATOLOGY WBC 10.6 3.7 - 10.4 04/20/2016 [facility] HEMATOLOGY Hct 37.1 36.0 - 48.0 04/20/2016 [facility] MCV 80.1 80.0 - 98.0 04/20/2016 [facility] MCH 25.8 27.0 - 31.0 04/20/2016 [facility] MCHC 32.2 32.0 - 36.0 04/20/2016 [facility] RDW 14.8 11.5 - 14.5 04/20/2016 [facility] Platelet 319 133 - 450 04/20/2016 [facility] MPV 8.9 7.4 - 10.4 04/20/2016 [facility] URINE AND STOOL UA Color Ltyellow 04/20/2016 [facility] URINE AND STOOL UA Urobilinogen <=1.0 mg/dL 0.1 - 1.0 04/20/2016 [facility] URINE AND STOOL UA Sq Epi Occasional /LPF Few /LPF 04/20/2016 [facility] URINE AND STOOL UA Leuk Est Large *ABN* (04/20/16 2:43 AM) Negative 04/20/2016 [facility] URINE AND STOOL UA Bacteria Occasional /HPF None Seen /HPF 04/20/2016 [facility] URINE AND STOOL UA RBC 6 0 - 2 04/20/2016 [facility] URINE AND STOOL UA WBC 49 0 - 5 04/20/2016 [facility] URINE AND STOOL UA Glucose Negative mg/dL Negative mg/dL 04/20/2016 [facility] URINE AND STOOL UA Nitrite Negative (04/20/16 2:43 AM) Negative 04/20/2016 [facility] URINE AND STOOL UA Blood Small *ABN* (04/20/16 2:43 AM) Negative 04/20/2016 [facility] URINE AND STOOL UA Bili Negative *NA* (04/20/16 2:43 AM) Negative 04/20/2016 [facility] URINE AND STOOL UA Ketones Negative mg/dL Negative mg/dL 04/20/2016 [facility] URINE AND STOOL UA Spec Grav 1.009 <=1.030 04/20/2016 [facility] URINE AND STOOL UA Turbidity Clear (04/20/16 2:43 AM) Clear 04/20/2016 [facility] URINE AND STOOL UA pH 6.0 5.0 - 8.0 04/20/2016 [facility] URINE AND STOOL UA Protein Negative mg/dL Negative mg/dL 04/20/2016 [facility] URINE CHEM U Preg Negative (04/20/16 2:43 AM) Negative 04/20/2016 [facility] CARDIAC ENZYMES Total CK 86 12 - 191 04/19/2016 [facility] CHEM PANEL BUN 14 7 - 22 04/19/2016 [facility] CHEM PANEL Glucose Lvl 186 70 - 99 04/19/2016 [facility] CHEM PANEL Albumin Lvl 3.6 3.5 - 5.0 04/19/2016 [facility] CHEM PANEL Total Protein 7.8 6.4 - 8.4 04/19/2016 [facility] CHEM PANEL Calcium Lvl 8.4 8.5 - 10.5 04/19/2016 [facility] CHEM PANEL CO2 22 24 - 32 04/19/2016 [facility] CHEM PANEL Chloride Lvl 106 95 - 109 04/19/2016 [facility] CHEM PANEL Potassium Lvl 3.5 3.5 - 5.1 04/19/2016 [facility] CHEM PANEL Sodium Lvl 136 135 - 145 04/19/2016 [facility] CHEM PANEL Creatinine Lvl 0.93 0.50 - 1.40 04/19/2016 [facility] CHEM PANEL ALT 37 0 - 65 04/19/2016 [facility] CHEM PANEL Alk Phos 83 39 - 136 04/19/2016 [facility] CHEM PANEL Bili Total 0.4 0.2 - 1.3 04/19/2016 [facility] CHEM PANEL AST 30 0 - 37 04/19/2016 [facility] CHEM PANEL eGFR 82 04/19/2016 Result Comment: The eGFR is calculated [...] should be multiplied by the estimated BMI. [facility] CHEM PANEL Globulin 4.2 2.7 - 4.2 04/19/2016 [facility] CHEM PANEL B/C Ratio 15 6 - 25 04/19/2016 [facility] CHEM PANEL A/G Ratio 0.9 0.7 - 1.6 04/19/2016 [facility] CHEM PANEL AGAP 11.5 10.0 - 20.0 04/19/2016 [facility] DRUG SCREEN UDS Note See Note *NA* (04/18/16 8:18 PM) 04/19/2016 [facility] DRUG SCREEN U Opiate Scr Negative *NA* (04/18/16 8:18 PM) Negative 04/19/2016 [facility] DRUG SCREEN U Cannab Scr Negative *NA* (04/18/16 8:18 PM) Negative 04/19/2016 [facility] DRUG SCREEN U Cocaine Scr Negative *NA* (04/18/16 8:18 PM) Negative 04/19/2016 [facility] DRUG SCREEN U Benzodia Scr Negative *NA* (04/18/16 8:18 PM) Negative 04/19/2016 [facility] DRUG SCREEN U Amph Scr Negative *NA* (04/18/16 8:18 PM) Negative 04/19/2016 [facility] DRUG SCREEN U Phencyc Scr Negative *NA* (04/18/16 8:18 PM) Negative 04/19/2016 [facility] DRUG SCREEN U Jocelyn Scr Negative *NA* (04/18/16 8:18 PM) Negative 04/19/2016 [facility] ENDOCRINOLOGY S Preg Negative *NA* (04/18/16 8:18 PM) Negative 04/19/2016 [facility] HEMATOLOGY Basophils 0.7 0.0 - 1.0 04/19/2016 [facility] HEMATOLOGY Segs 73.0 45.0 - 75.0 04/19/2016 [facility] HEMATOLOGY Eosinophils 1.3 0.0 - 4.0 04/19/2016 [facility] HEMATOLOGY Monocytes 4.6 2.0 - 12.0 04/19/2016 [facility] HEMATOLOGY Lymphocytes 20.4 20.0 - 40.0 04/19/2016 [facility] HEMATOLOGY Eosinophils # 0.2 0.0 - 0.5 04/19/2016 [facility] HEMATOLOGY Basophils # 0.1 0.0 - 0.2 04/19/2016 [facility] HEMATOLOGY Segs-Bands # 9.1 1.5 - 8.1 04/19/2016 [facility] HEMATOLOGY Monocytes # 0.6 0.0 - 0.8 04/19/2016 [facility] HEMATOLOGY Lymphocytes # 2.5 1.0 - 5.5 04/19/2016 [facility] MCHC 32.6 32.0 - 36.0 04/19/2016 [facility] HEMATOLOGY RDW 14.9 11.5 - 14.5 04/19/2016 [facility] HEMATOLOGY Platelet 339 133 - 450 04/19/2016 [facility] MPV 8.9 7.4 - 10.4 04/19/2016 [facility] RBC 4.77 4.20 - 5.40 04/19/2016 [facility] Hct 37.8 36.0 - 48.0 04/19/2016 [facility] HEMATOLOGY Hgb 12.3 12.0 - 16.0 04/19/2016 [facility] HEMATOLOGY MCV 79.3 80.0 - 98.0 04/19/2016 [facility] MCH 25.8 27.0 - 31.0 04/19/2016 [facility] WBC 12.4 3.7 - 10.4 04/19/2016 [facility] URINE AND STOOL UA Urobilinogen <=1.0 mg/dL 0.1 - 1.0 04/19/2016 [facility] URINE AND STOOL UA Color Colorless 04/19/2016 [facility] URINE AND STOOL UA WBC 2 0 - 5 04/19/2016 [facility] URINE AND STOOL UA RBC 1 0 - 2 04/19/2016 [facility] URINE AND STOOL UA pH 6.0 5.0 - 8.0 04/19/2016 [facility] URINE AND STOOL UA Spec Grav 1.003 <=1.030 04/19/2016 [facility] URINE AND STOOL UA Sq Epi Occasional /LPF Few /LPF 04/19/2016 [facility] URINE AND STOOL UA Nitrite Negative (04/18/16 8:18 PM) Negative 04/19/2016 [facility] URINE AND STOOL UA Turbidity Clear (04/18/16 8:18 PM) Clear 04/19/2016 [facility] URINE AND STOOL UA Bili Negative *NA* (04/18/16 8:18 PM) Negative 04/19/2016 [facility] URINE AND STOOL UA Glucose Negative mg/dL Negative mg/dL 04/19/2016 [facility] URINE AND STOOL UA Ketones Negative mg/dL Negative mg/dL 04/19/2016 [facility] URINE AND STOOL UA Blood Small *ABN* (04/18/16 8:18 PM) Negative 04/19/2016 [facility] URINE AND STOOL UA Protein Negative mg/dL Negative mg/dL 04/19/2016 [facility] URINE AND STOOL UA Leuk Est Trace *ABN* (04/18/16 8:18 PM) Negative 04/19/2016 [facility] CHEM PANEL Lipase Lvl 143 73 - 393 03/21/2016 [facility] CHEM PANEL B/C Ratio 14 6 - 25 03/21/2016 [facility] CHEM PANEL Globulin 4.4 2.0 - 4.0 03/21/2016 [facility] CHEM PANEL A/G Ratio 0.8 0.7 - 1.6 03/21/2016 [facility] CHEM PANEL AGAP 13.8 10.0 - 20.0 03/21/2016 [facility] CHEM PANEL eGFR 107 03/21/2016 Result Comment: The eGFR is calculated [...] should be multiplied by the estimated BMI. [facility] CHEM PANEL Total Protein 8.0 6.4 - 8.4 03/21/2016 [facility] CHEM PANEL Albumin Lvl 3.6 3.5 - 5.0 03/21/2016 [facility] CHEM PANEL CO2 26 24 - 32 03/21/2016 [facility] CHEM PANEL Calcium Lvl 8.6 8.5 - 10.5 03/21/2016 [facility] CHEM PANEL Chloride Lvl 102 95 - 109 03/21/2016 [facility] CHEM PANEL Creatinine Lvl 0.74 0.50 - 1.40 03/21/2016 [facility] CHEM PANEL Sodium Lvl 138 135 - 145 03/21/2016 [facility] CHEM PANEL BUN 10 7 - 22 03/21/2016 [facility] CHEM PANEL Potassium Lvl 3.8 3.5 - 5.1 03/21/2016 [facility] CHEM PANEL Alk Phos 83 39 - 136 03/21/2016 [facility] CHEM PANEL Glucose Lvl 152 70 - 99 03/21/2016 [facility] CHEM PANEL AST 33 0 - 37 03/21/2016 [facility] CHEM PANEL Bili Total 0.4 0.2 - 1.3 03/21/2016 [facility] CHEM PANEL ALT 43 0 - 65 03/21/2016 [facility] HEMATOLOGY Basophils # 0.1 0.0 - 0.2 03/21/2016 [facility] HEMATOLOGY Eosinophils # 0.3 0.0 - 0.5 03/21/2016 [facility] HEMATOLOGY Monocytes # 0.5 0.0 - 0.8 03/21/2016 [facility] HEMATOLOGY Eosinophils 2.6 0.0 - 4.0 03/21/2016 [facility] HEMATOLOGY Monocytes 4.6 2.0 - 12.0 03/21/2016 [facility] HEMATOLOGY Lymphocytes # 2.8 1.0 - 5.5 03/21/2016 [facility] HEMATOLOGY Segs-Bands # 6.3 1.5 - 8.1 03/21/2016 [facility] HEMATOLOGY Basophils 0.5 0.0 - 1.0 03/21/2016 [facility] HEMATOLOGY Lymphocytes 28.6 20.0 - 40.0 03/21/2016 [facility] HEMATOLOGY Segs 63.7 45.0 - 75.0 03/21/2016 [facility] HEMATOLOGY MPV 9.0 7.4 - 10.4 03/21/2016 [facility] HEMATOLOGY Platelet 342 133 - 450 03/21/2016 [facility] HEMATOLOGY Hgb 13.1 12.0 - 16.0 03/21/2016 [facility] HEMATOLOGY RBC 5.07 4.20 - 5.40 03/21/2016 [facility] HEMATOLOGY Hct 40.6 36.0 - 48.0 03/21/2016 [facility] HEMATOLOGY MCH 25.8 27.0 - 31.0 03/21/2016 [facility] HEMATOLOGY MCV 80.0 80.0 - 98.0 03/21/2016 [facility] HEMATOLOGY RDW 15.2 11.5 - 14.5 03/21/2016 [facility] HEMATOLOGY MCHC 32.3 32.0 - 36.0 03/21/2016 [facility] HEMATOLOGY WBC 9.9 3.7 - 10.4 03/21/2016 [facility] URINE AND STOOL UA Urobilinogen <=1.0 mg/dL 0.1 - 1.0 03/21/2016 [facility] URINE AND STOOL UA Ketones Negative mg/dL Negative mg/dL 03/21/2016 [facility] URINE AND STOOL UA WBC 173 0 - 5 03/21/2016 [facility] URINE AND STOOL UA RBC 25 0 - 2 03/21/2016 [facility] URINE AND STOOL UA Sq Epi Many /LPF Few /LPF 03/21/2016 [facility] URINE AND STOOL UA Leuk Est Large *ABN* (03/21/16 4:54 PM) Negative 03/21/2016 [facility] URINE AND STOOL UA Nitrite Negative (03/21/16 4:54 PM) Negative 03/21/2016 [facility] URINE AND STOOL UA Blood Moderate *ABN* (03/21/16 4:54 PM) Negative 03/21/2016 [facility] URINE AND STOOL UA Mucus Few /LPF None Seen /LPF 03/21/2016 [facility] URINE AND STOOL UA Bili Negative *NA* (03/21/16 4:54 PM) Negative 03/21/2016 [facility] URINE AND STOOL UA Color Yellow *NA* (03/21/16 4:54 PM) Yellow 03/21/2016 [facility] URINE AND STOOL UA Glucose Negative mg/dL Negative mg/dL 03/21/2016 [facility] URINE AND STOOL UA Turbidity Marked *ABN* (03/21/16 4:54 PM) Clear 03/21/2016 [facility] URINE AND STOOL UA Spec Grav 1.024 <=1.030 03/21/2016 [facility] URINE AND STOOL UA pH 5.0 5.0 - 8.0 03/21/2016 [facility] URINE AND STOOL UA Protein 30 mg/dL Negative mg/dL 03/21/2016 [facility] URINE CHEM U Preg Negative (03/21/16 4:54 PM) Negative 03/21/2016 [facility] CHEM PANEL AST 11 0 - 37 12/05/2015 [facility] CHEM PANEL CO2 27 24 - 32 12/05/2015 [facility] CHEM PANEL AGAP 9.8 10.0 - 20.0 12/05/2015 [facility] CHEM PANEL Calcium Lvl 7.7 8.5 - 10.5 12/05/2015 [facility] CHEM PANEL ALT 26 0 - 65 12/05/2015 [facility] CHEM PANEL A/G Ratio 0.9 0.7 - 1.6 12/05/2015 [facility] CHEM PANEL Albumin Lvl 2.9 3.5 - 5.0 12/05/2015 [facility] CHEM PANEL Globulin 3.1 2.0 - 4.0 12/05/2015 [facility] CHEM PANEL eGFR 116 12/05/2015 Result Comment: The eGFR is calculated [...] should be multiplied by the estimated BMI. [facility] CHEM PANEL Alk Phos 57 39 - 136 12/05/2015 [facility] CHEM PANEL Bili Total 0.3 0.2 - 1.3 12/05/2015 [facility] CHEM PANEL B/C Ratio 16 6 - 25 12/05/2015 [facility] CHEM PANEL Total Protein 6.0 6.4 - 8.4 12/05/2015 [facility] CHEM PANEL Chloride Lvl 109 95 - 109 12/05/2015 [facility] CHEM PANEL Creatinine Lvl 0.69 0.50 - 1.40 12/05/2015 [facility] CHEM PANEL Potassium Lvl 3.8 3.5 - 5.1 12/05/2015 [facility] CHEM PANEL BUN 11 7 - 22 12/05/2015 [facility] CHEM PANEL Sodium Lvl 142 135 - 145 12/05/2015 [facility] CHEM PANEL Glucose Lvl 155 70 - 99 12/05/2015 [facility] MPV 8.9 7.4 - 10.4 12/05/2015 [facility] Platelet 285 133 - 450 12/05/2015 [facility] MCHC 31.8 32.0 - 36.0 12/05/2015 [facility] RDW 14.8 11.5 - 14.5 12/05/2015 [facility] Hct 32.3 36.0 - 48.0 12/05/2015 [facility] MCH 25.5 27.0 - 31.0 12/05/2015 [facility] MCV 80.2 80.0 - 98.0 12/05/2015 [facility] WBC 11.4 3.7 - 10.4 12/05/2015 [facility] RBC 4.03 4.20 - 5.40 12/05/2015 [facility] Hgb 10.3 12.0 - 16.0 12/05/2015 [facility] Lymphocytes 31.4 20.0 - 40.0 12/05/2015 [facility] Monocytes # 0.7 0.0 - 0.8 12/05/2015 [facility] Lymphocytes # 3.6 1.0 - 5.5 12/05/2015 [facility] Segs-Bands # 6.9 1.5 - 8.1 12/05/2015 [facility] HEMATOLOGY Basophils 0.5 0.0 - 1.0 12/05/2015 [facility] Monocytes 6.5 2.0 - 12.0 12/05/2015 [facility] Basophils # 0.1 0.0 - 0.2 12/05/2015 [facility] Eosinophils # 0.2 0.0 - 0.5 12/05/2015 [facility] Segs 60.0 45.0 - 75.0 12/05/2015 [facility] Eosinophils 1.6 0.0 - 4.0 12/05/2015 [facility] CHEM PANEL eGFR 119 12/04/2015 Result Comment: The eGFR is calculated [...] by the estimated BMI. [facility] CHEM PANEL Total Protein 6.7 6.4 - 8.4 12/04/2015 [facility] CHEM PANEL AGAP 12.1 10.0 - 20.0 12/04/2015 [facility] CHEM PANEL CO2 26 24 - 32 12/04/2015 [facility] CHEM PANEL B/C Ratio 12 6 - 25 12/04/2015 [facility] CHEM PANEL Calcium Lvl 8.1 8.5 - 10.5 12/04/2015 [facility] CHEM PANEL Chloride Lvl 103 95 - 109 12/04/2015 [facility] CHEM PANEL Sodium Lvl 137 135 - 145 12/04/2015 [facility] CHEM PANEL Creatinine Lvl 0.64 0.50 - 1.40 12/04/2015 [facility] CHEM PANEL BUN 8 7 - 22 12/04/2015 [facility] CHEM PANEL Potassium Lvl 4.1 3.5 - 5.1 12/04/2015 [facility] CHEM PANEL Bili Total 0.7 0.2 - 1.3 12/04/2015 [facility] CHEM PANEL Alk Phos 68 39 - 136 12/04/2015 [facility] CHEM PANEL Albumin Lvl 3.0 3.5 - 5.0 12/04/2015 [facility] CHEM PANEL A/G Ratio 0.8 0.7 - 1.6 12/04/2015 [facility] CHEM PANEL Globulin 3.7 2.0 - 4.0 12/04/2015 [facility] CHEM PANEL AST 22 0 - 37 12/04/2015 [facility] CHEM PANEL ALT 35 0 - 65 12/04/2015 [facility] CHEM PANEL Glucose Lvl 163 70 - 99 12/04/2015 [facility] HEMATOLOGY MCH 25.4 27.0 - 31.0 12/04/2015 [facility] HEMATOLOGY MCV 79.7 80.0 - 98.0 12/04/2015 [facility] HEMATOLOGY MCHC 31.9 32.0 - 36.0 12/04/2015 [facility] HEMATOLOGY Hct 35.0 36.0 - 48.0 12/04/2015 [facility] HEMATOLOGY MPV 8.8 7.4 - 10.4 12/04/2015 [facility] HEMATOLOGY Hgb 11.1 12.0 - 16.0 12/04/2015 [facility] HEMATOLOGY Platelet 331 133 - 450 12/04/2015 [facility] HEMATOLOGY RDW 14.9 11.5 - 14.5 12/04/2015 [facility] HEMATOLOGY RBC 4.39 4.20 - 5.40 12/04/2015 [facility] HEMATOLOGY WBC 16.6 3.7 - 10.4 12/04/2015 [facility] HEMATOLOGY Eosinophils 0.2 0.0 - 4.0 12/04/2015 [facility] HEMATOLOGY Basophils 0.3 0.0 - 1.0 12/04/2015 [facility] HEMATOLOGY Segs-Bands # 13.8 1.5 - 8.1 12/04/2015 [facility] Monocytes # 0.8 0.0 - 0.8 12/04/2015 [facility] Lymphocytes # 1.9 1.0 - 5.5 12/04/2015 [facility] Monocytes 4.8 2.0 - 12.0 12/04/2015 [facility] Segs 83.5 45.0 - 75.0 12/04/2015 [facility] Lymphocytes 11.2 20.0 - 40.0 12/04/2015 [facility] ANEMIA STUDY Vitamin B12 Lvl 443 254 - 1320 12/04/2015 [facility] ANEMIA STUDY Iron 49 30 - 160 12/04/2015 [facility] ANEMIA STUDY % [place] 13 12 - 57 12/04/2015 [facility] ANEMIA STUDY TIBC 382 228 - 428 12/04/2015 [facility] ANEMIA STUDY UIBC 333 110 - 370 12/04/2015 [facility] CHEM PANEL Magnesium Lvl 2.0 1.8 - 2.4 12/03/2015 [facility] CHEM PANEL Phosphorus 2.5 2.5 - 4.5 12/03/2015 [facility] ELECTROLYTES AGAP 11.6 10.0 - 20.0 12/03/2015 [facility] ELECTROLYTES Globulin 3.7 2.0 - 4.0 12/03/2015 [facility] ELECTROLYTES B/C Ratio 16 6 - 25 12/03/2015 [facility] ELECTROLYTES A/G Ratio 0.9 0.7 - 1.6 12/03/2015 [facility] ELECTROLYTES eGFR 121 12/03/2015 Result Comment: The eGFR is calculated [...] should be multiplied by the estimated BMI. [facility] ELECTROLYTES Bili Total 0.4 0.2 - 1.3 12/03/2015 [facility] ELECTROLYTES Alk Phos 72 39 - 136 12/03/2015 [facility] ELECTROLYTES CO2 26 24 - 32 12/03/2015 [facility] ELECTROLYTES Chloride Lvl 105 95 - 109 12/03/2015 [facility] ELECTROLYTES ALT 30 0 - 65 12/03/2015 [facility] ELECTROLYTES AST 13 0 - 37 12/03/2015 [facility] ELECTROLYTES Albumin Lvl 3.3 3.5 - 5.0 12/03/2015 [facility] ELECTROLYTES Total Protein 7.0 6.4 - 8.4 12/03/2015 [facility] ELECTROLYTES Calcium Lvl 8.0 8.5 - 10.5 12/03/2015 [facility] ELECTROLYTES BUN 10 7 - 22 12/03/2015 [facility] ELECTROLYTES Glucose Lvl 153 70 - 99 12/03/2015 [facility] ELECTROLYTES Creatinine Lvl 0.62 0.50 - 1.40 12/03/2015 [facility] ELECTROLYTES Potassium Lvl 3.6 3.5 - 5.1 12/03/2015 [facility] ELECTROLYTES Sodium Lvl 139 135 - 145 12/03/2015 [facility] HEMATOLOGY Lymphocytes # 3.1 1.0 - 5.5 12/03/2015 [facility] HEMATOLOGY Segs 67.0 45.0 - 75.0 12/03/2015 [facility] HEMATOLOGY Basophils 0.7 0.0 - 1.0 12/03/2015 [facility] HEMATOLOGY Segs-Bands # 8.4 1.5 - 8.1 12/03/2015 [facility] HEMATOLOGY Eosinophils 2.6 0.0 - 4.0 12/03/2015 [facility] HEMATOLOGY Monocytes 5.0 2.0 - 12.0 12/03/2015 [facility] HEMATOLOGY Lymphocytes 24.7 20.0 - 40.0 12/03/2015 [facility] HEMATOLOGY Eosinophils # 0.3 0.0 - 0.5 12/03/2015 [facility] HEMATOLOGY Basophils # 0.1 0.0 - 0.2 12/03/2015 [facility] HEMATOLOGY Monocytes # 0.6 0.0 - 0.8 12/03/2015 [facility] HEMATOLOGY RDW 14.9 11.5 - 14.5 12/03/2015 [facility] HEMATOLOGY Platelet 320 133 - 450 12/03/2015 [facility] HEMATOLOGY MPV 8.8 7.4 - 10.4 12/03/2015 [facility] HEMATOLOGY WBC 12.5 3.7 - 10.4 12/03/2015 [facility] RBC 4.79 4.20 - 5.40 12/03/2015 [facility] MCH 25.4 27.0 - 31.0 12/03/2015 [facility] MCHC 31.7 32.0 - 36.0 12/03/2015 [facility] MCV 80.2 80.0 - 98.0 12/03/2015 [facility] Hgb 12.1 12.0 - 16.0 12/03/2015 [facility] Hct 38.4 36.0 - 48.0 12/03/2015 [facility] CHEM PANEL Lipase Lvl 163 73 - 393 12/02/2015 [facility] Eosinophils # 0.2 0.0 - 0.5 12/02/2015 [facility] HEMATOLOGY Basophils # 0.1 0.0 - 0.2 12/02/2015 [facility] URINE AND STOOL UA Color Ltyellow 12/02/2015 [facility] URINE AND STOOL UA Urobilinogen <=1.0 mg/dL 0.1 - 1.0 12/02/2015 [facility] URINE AND STOOL UA Sq Epi Many /LPF Few /LPF 12/02/2015 [facility] URINE AND STOOL UA WBC 2 0 - 5 12/02/2015 [facility] URINE AND STOOL UA Leuk Est Trace *ABN* (12/02/15 3:35 PM) Negative 12/02/2015 [facility] URINE AND STOOL UA Blood Moderate *ABN* (12/02/15 3:35 PM) Negative 12/02/2015 [facility] URINE AND STOOL UA Nitrite Negative (12/02/15 3:35 PM) Negative 12/02/2015 [facility] URINE AND STOOL UA RBC 3 0 - 2 12/02/2015 [facility] URINE AND STOOL UA Mucus Few /LPF None Seen /LPF 12/02/2015 [facility] URINE AND STOOL UA Turbidity Slight *ABN* (12/02/15 3:35 PM) Clear 12/02/2015 [facility] URINE AND STOOL UA Ketones Negative mg/dL Negative mg/dL 12/02/2015 [facility] URINE AND STOOL UA Bili Negative *NA* (12/02/15 3:35 PM) Negative 12/02/2015 [facility] URINE AND STOOL UA pH 5.0 5.0 - 8.0 12/02/2015 [facility] URINE AND STOOL UA Spec Grav 1.020 <=1.030 12/02/2015 [facility] URINE AND STOOL UA Glucose Negative mg/dL Negative mg/dL 12/02/2015 [facility] URINE AND STOOL UA Protein Negative mg/dL Negative mg/dL 12/02/2015 [facility] URINE CHEM U Preg Negative (12/02/15 3:35 PM) Negative 12/02/2015 [facility] CHEM PANEL Lipase Lvl 213 73 - 393 11/10/2015 [facility] CHEM PANEL Amylase Lvl 25 25 - 115 11/10/2015 [facility] CHEM PANEL A/G Ratio 0.9 0.7 - 1.6 11/10/2015 [facility] CHEM PANEL Globulin 3.8 2.0 - 4.0 11/10/2015 [facility] CHEM PANEL B/C Ratio 13 6 - 25 11/10/2015 [facility] CHEM PANEL AGAP 10.0 10.0 - 20.0 11/10/2015 [facility] CHEM PANEL eGFR 60 11/10/2015 Result Comment: The eGFR is calculated [...] should be multiplied by the estimated BMI. [facility] CHEM PANEL ALT 25 0 - 65 11/10/2015 [facility] CHEM PANEL Bili Total 0.1 0.2 - 1.3 11/10/2015 [facility] CHEM PANEL Alk Phos 83 39 - 136 11/10/2015 [facility] CHEM PANEL AST 10 0 - 37 11/10/2015 [facility] CHEM PANEL Sodium Lvl 139 135 - 145 11/10/2015 [facility] CHEM PANEL Glucose Lvl 202 70 - 99 11/10/2015 [facility] CHEM PANEL Creatinine Lvl 1.21 0.50 - 1.40 11/10/2015 [facility] CHEM PANEL BUN 16 7 - 22 11/10/2015 [facility] CHEM PANEL Potassium Lvl 4.0 3.5 - 5.1 11/10/2015 [facility] CHEM PANEL CO2 28 24 - 32 11/10/2015 [facility] CHEM PANEL Chloride Lvl 105 95 - 109 11/10/2015 [facility] CHEM PANEL Total Protein 7.1 6.4 - 8.4 11/10/2015 [facility] CHEM PANEL Calcium Lvl 8.2 8.5 - 10.5 11/10/2015 [facility] CHEM PANEL Albumin Lvl 3.3 3.5 - 5.0 11/10/2015 [facility] HEMATOLOGY RBC 4.60 4.20 - 5.40 11/10/2015 [facility] HEMATOLOGY WBC 12.6 3.7 - 10.4 11/10/2015 [facility] HEMATOLOGY RDW 14.7 11.5 - 14.5 11/10/2015 [facility] MCH 25.3 27.0 - 31.0 11/10/2015 [facility] HEMATOLOGY MCV 79.7 80.0 - 98.0 11/10/2015 [facility] HEMATOLOGY Hct 36.7 36.0 - 48.0 11/10/2015 [facility] MCHC 31.8 32.0 - 36.0 11/10/2015 [facility] Hgb 11.7 12.0 - 16.0 11/10/2015 [facility] MPV 8.9 7.4 - 10.4 11/10/2015 [facility] HEMATOLOGY Platelet 304 133 - 450 11/10/2015 [facility] HEMATOLOGY Basophils 0.6 0.0 - 1.0 11/10/2015 [facility] HEMATOLOGY Segs-Bands # 7.9 1.5 - 8.1 11/10/2015 [facility] HEMATOLOGY Monocytes 5.9 2.0 - 12.0 11/10/2015 [facility] HEMATOLOGY Eosinophils 3.0 0.0 - 4.0 11/10/2015 [facility] HEMATOLOGY Eosinophils # 0.4 0.0 - 0.5 11/10/2015 [facility] HEMATOLOGY Monocytes # 0.7 0.0 - 0.8 11/10/2015 [facility] HEMATOLOGY Lymphocytes # 3.4 1.0 - 5.5 11/10/2015 [facility] HEMATOLOGY Basophils # 0.1 0.0 - 0.2 11/10/2015 [facility] HEMATOLOGY Segs 63.2 45.0 - 75.0 11/10/2015 [facility] HEMATOLOGY Lymphocytes 27.3 20.0 - 40.0 11/10/2015 [facility] URINE AND STOOL UA Urobilinogen <=1.0 mg/dL 0.1 - 1.0 11/10/2015 [facility] URINE AND STOOL UA Color Ltyellow 11/10/2015 [facility] URINE AND STOOL UA Turbidity Slight *ABN* (11/09/15 11:08 PM) Clear 11/10/2015 [facility] URINE AND STOOL UA Spec Grav 1.023 <=1.030 11/10/2015 [facility] URINE AND STOOL UA WBC 49 0 - 5 11/10/2015 [facility] URINE AND STOOL UA Bacteria Occasional /HPF None Seen /HPF 11/10/2015 [facility] URINE AND STOOL UA RBC 6 0 - 2 11/10/2015 [facility] URINE AND STOOL UA Sq Epi Moderate /LPF Few /LPF 11/10/2015 [facility] URINE AND STOOL UA Nitrite Negative (11/09/15 11:08 PM) Negative 11/10/2015 [facility] URINE AND STOOL UA Blood Negative (11/09/15 11:08 PM) Negative 11/10/2015 [facility] URINE AND STOOL UA Leuk Est Large *ABN* (11/09/15 11:08 PM) Negative 11/10/2015 [facility] URINE AND STOOL UA Protein 30 mg/dL Negative mg/dL 11/10/2015 [facility] URINE AND STOOL UA Glucose 50 mg/dL Negative mg/dL 11/10/2015 [facility] URINE AND STOOL UA Bili Negative *NA* (11/09/15 11:08 PM) Negative 11/10/2015 [facility] URINE AND STOOL UA Ketones Negative mg/dL Negative mg/dL 11/10/2015 [facility] URINE AND STOOL UA pH 8.0 5.0 - 8.0 11/10/2015 [facility] URINE CHEM U Preg Negative (11/09/15 11:08 PM) Negative 11/10/2015 [facility] IMMUNOLOGY CDC HIV 4th GEN Negative (10/16/15 11:44 PM) Negative 10/17/2015 [facility] IMMUNOLOGY [employer]-Hep C Ab Negative *NA* (10/16/15 11:44 PM) Negative 10/17/2015 [facility] CHEM PANEL eGFR 117 06/11/2015 Result Comment: The eGFR is calculated [...] should be multiplied by the estimated BMI. [facility] CHEM PANEL CO2 27 24 - 32 06/11/2015 [facility] CHEM PANEL Calcium Lvl 8.5 8.5 - 10.5 06/11/2015 [facility] CHEM PANEL Albumin Lvl 3.2 3.5 - 5.0 06/11/2015 [facility] CHEM PANEL Potassium Lvl 4.1 3.5 - 5.1 06/11/2015 [facility] CHEM PANEL Chloride Lvl 102 95 - 109 06/11/2015 [facility] CHEM PANEL Sodium Lvl 136 135 - 145 06/11/2015 [facility] CHEM PANEL Creatinine Lvl 0.7 0.5 - 1.4 06/11/2015 [facility] CHEM PANEL Total Protein 7.5 6.4 - 8.4 06/11/2015 [facility] CHEM PANEL Glucose Lvl 170 70 - 99 06/11/2015 [facility] CHEM PANEL BUN 15 7 - 22 06/11/2015 [facility] CHEM PANEL Bili Total 0.3 0.2 - 1.3 06/11/2015 [facility] CHEM PANEL AST 39 0 - 37 06/11/2015 [facility] CHEM PANEL ALT 33 0 - 65 06/11/2015 [facility] CHEM PANEL Alk Phos 86 39 - 136 06/11/2015 [facility] CHEM PANEL AGAP 11.1 10.0 - 20.0 06/11/2015 [facility] CHEM PANEL A/G Ratio 0.7 0.7 - 1.6 06/11/2015 [facility] CHEM PANEL B/C Ratio 21 6 - 25 06/11/2015 [facility] CHEM PANEL Globulin 4.3 2.0 - 4.0 06/11/2015 [facility] HEMATOLOGY Eosinophils # 0.3 0.0 - 0.5 06/11/2015 [facility] HEMATOLOGY Basophils # 0.1 0.0 - 0.2 06/11/2015 [facility] HEMATOLOGY Lymphocytes # 3.5 1.0 - 5.5 06/11/2015 [facility] HEMATOLOGY Segs 61.7 45.0 - 75.0 06/11/2015 [facility] HEMATOLOGY Lymphocytes 28.9 20.0 - 40.0 06/11/2015 [facility] HEMATOLOGY Monocytes # 0.7 0.0 - 0.8 06/11/2015 [facility] HEMATOLOGY Segs-Bands # 7.6 1.5 - 8.1 06/11/2015 [facility] HEMATOLOGY Basophils 1.0 0.0 - 1.0 06/11/2015 [facility] HEMATOLOGY Eosinophils 2.6 0.0 - 4.0 06/11/2015 [facility] HEMATOLOGY Monocytes 5.8 2.0 - 12.0 06/11/2015 [facility] HEMATOLOGY MCH 26.5 27.0 - 31.0 06/11/2015 [facility] HEMATOLOGY MCHC 32.3 32.0 - 36.0 06/11/2015 [facility] HEMATOLOGY RDW 13.8 11.5 - 14.5 06/11/2015 [facility] HEMATOLOGY WBC 12.3 3.7 - 10.4 06/11/2015 [facility] HEMATOLOGY MCV 82.2 80.0 - 98.0 06/11/2015 [facility] HEMATOLOGY RBC 4.50 4.20 - 5.40 06/11/2015 [facility] HEMATOLOGY Hgb 11.9 12.0 - 16.0 06/11/2015 [facility] HEMATOLOGY Hct 37.0 36.0 - 48.0 06/11/2015 [facility] HEMATOLOGY MPV 9.8 7.4 - 10.4 06/11/2015 [facility] HEMATOLOGY Platelet 243 133 - 450 06/11/2015 [facility] URINE AND STOOL UA Color Ltyellow 06/11/2015 [facility] URINE AND STOOL UA Urobilinogen <=1.0 mg/dL 0.1 - 1.0 06/11/2015 [facility] URINE AND STOOL UA Mucus Few /LPF None Seen /LPF 06/11/2015 [facility] URINE AND STOOL UA Turbidity Slight [...] Negative 06/11/2015 [facility] URINE AND STOOL UA Nitrite Negative (06/10/15 10:39 PM) Negative 06/11/2015 [facility] URINE AND STOOL UA RBC 4 0 - 2 06/11/2015 [facility] URINE AND STOOL UA WBC 4 0 - 5 06/11/2015 [facility] URINE AND STOOL UA Bacteria Occasional /HPF None Seen /HPF 06/11/2015 [facility] URINE AND STOOL UA Sq Epi Many /LPF Few /LPF 06/11/2015 [facility] URINE AND STOOL UA pH 6.0 5.0 - 8.0 06/11/2015 [facility] URINE AND STOOL UA Spec Grav 1.023 <=1.030 06/11/2015 [facility] URINE CHEM U Preg Negative (06/10/15 10:39 PM) Negative 06/11/2015 [facility] CARDIAC ENZYMES Total CK 66 12 - 191 04/21/2015 [facility] CARDIAC ENZYMES BNP 36 <=100 pg/mL 04/21/2015 [facility] CARDIAC ENZYMES Troponin-I <0.02 0.00 - 0.40 04/21/2015 [facility] CHEM PANEL Lipase Lvl 152 73 - 393 04/21/2015 [facility] CHEM PANEL Amylase Lvl 19 25 - 115 04/21/2015 [facility] CHEM PANEL eGFR 99 04/21/2015 Result Comment: The eGFR is calculated [...] should be multiplied by the estimated BMI. [facility] CHEM PANEL Calcium Lvl 9.0 8.5 - 10.5 04/21/2015 [facility] CHEM PANEL AST 35 0 - 37 04/21/2015 [facility] CHEM PANEL CO2 22 24 - 32 04/21/2015 [facility] CHEM PANEL BUN 11 7 - 22 04/21/2015 [facility] CHEM PANEL Total Protein 7.8 6.4 - 8.4 04/21/2015 [facility] CHEM PANEL Creatinine Lvl 0.8 0.5 - 1.4 04/21/2015 [facility] CHEM PANEL Alk Phos 82 39 - 136 04/21/2015 [facility] CHEM PANEL ALT 40 0 - 65 04/21/2015 [facility] CHEM PANEL Albumin Lvl 3.5 3.5 - 5.0 04/21/2015 [facility] CHEM PANEL Bili Total 0.5 0.2 - 1.3 04/21/2015 [facility] CHEM PANEL Glucose Lvl 131 70 - 99 04/21/2015 [facility] CHEM PANEL Chloride Lvl 106 95 - 109 04/21/2015 [facility] CHEM PANEL Potassium Lvl 3.6 3.5 - 5.1 04/21/2015 [facility] CHEM PANEL Sodium Lvl 137 135 - 145 04/21/2015 [facility] CHEM PANEL B/C Ratio 14 6 - 25 04/21/2015 [facility] CHEM PANEL AGAP 12.6 10.0 - 20.0 04/21/2015 [facility] CHEM PANEL A/G Ratio 0.8 0.7 - 1.6 04/21/2015 [facility] CHEM PANEL Globulin 4.3 2.0 - 4.0 04/21/2015 [facility] HEMATOLOGY INR 1.03 0.85 - 1.17 04/21/2015 [facility] HEMATOLOGY PTT 30.7 22.9 - 35.8 04/21/2015 [facility] HEMATOLOGY PT 13.5 12.0 - 14.7 04/21/2015 [facility] HEMATOLOGY Hct 38.9 36.0 - 48.0 04/21/2015 [facility] HEMATOLOGY Hgb 13.0 12.0 - 16.0 04/21/2015 [facility] HEMATOLOGY RBC 4.71 4.20 - 5.40 04/21/2015 [facility] HEMATOLOGY WBC 9.4 3.7 - 10.4 04/21/2015 [facility] HEMATOLOGY MCV 82.7 80.0 - 98.0 04/21/2015 [facility] HEMATOLOGY Platelet 294 133 - 450 04/21/2015 [facility] HEMATOLOGY RDW 14.4 11.5 - 14.5 04/21/2015 [facility] HEMATOLOGY MCHC 33.5 32.0 - 36.0 04/21/2015 [facility] MCH 27.7 27.0 - 31.0 04/21/2015 [facility] MPV 9.1 7.4 - 10.4 04/21/2015 [facility] HEMATOLOGY Segs-Bands # 6.1 1.5 - 8.1 04/21/2015 [facility] HEMATOLOGY Basophils 1.0 0.0 - 1.0 04/21/2015 [facility] HEMATOLOGY Eosinophils # 0.2 0.0 - 0.5 04/21/2015 [facility] HEMATOLOGY Monocytes # 0.5 0.0 - 0.8 04/21/2015 [facility] HEMATOLOGY Lymphocytes # 2.5 1.0 - 5.5 04/21/2015 [facility] HEMATOLOGY Eosinophils 1.8 0.0 - 4.0 04/21/2015 [facility] HEMATOLOGY Monocytes 5.0 2.0 - 12.0 04/21/2015 [facility] HEMATOLOGY Basophils # 0.1 0.0 - 0.2 04/21/2015 [facility] HEMATOLOGY Lymphocytes 27.0 20.0 - 40.0 04/21/2015 [facility] HEMATOLOGY Segs 65.2 45.0 - 75.0 04/21/2015 [facility] URINE AND STOOL UA Ketones Negative mg/dL Negative mg/dL 04/21/2015 [facility] URINE AND STOOL UA Nitrite Negative (04/21/15 2:20 PM) Negative 04/21/2015 [facility] URINE AND STOOL UA Glucose Negative mg/dL Negative mg/dL 04/21/2015 [facility] URINE AND STOOL UA Blood Large *ABN* (04/21/15 2:20 PM) Negative 04/21/2015 [facility] URINE AND STOOL UA Bili Negative *NA* (04/21/15 2:20 PM) Negative 04/21/2015 [facility] URINE AND STOOL UA Protein Negative mg/dL Negative mg/dL 04/21/2015 [facility] URINE AND STOOL UA Spec Grav 1.015 <=1.030 04/21/2015 [facility] URINE AND STOOL UA pH 5.0 5.0 - 8.0 04/21/2015 [facility] URINE AND STOOL UA Turbidity Slight *ABN* (04/21/15 2:20 PM) Clear 04/21/2015 [facility] URINE AND STOOL UA Urobilinogen <=1.0 mg/dL 0.1 - 1.0 04/21/2015 [facility] URINE AND STOOL UA Color Ltyellow 04/21/2015 [facility] URINE AND STOOL UA Bacteria Occasional /HPF None Seen /HPF 04/21/2015 [facility] URINE AND STOOL UA RBC 76 0 - 2 04/21/2015 [facility] URINE AND STOOL UA WBC 11 0 - 5 04/21/2015 [facility] URINE AND STOOL UA Sq Epi Few /LPF Few /LPF 04/21/2015 [facility] URINE AND STOOL UA Leuk Est Large *ABN* (04/21/15 2:20 PM) Negative 04/21/2015 [facility] URINE CHEM U Preg Negative (04/21/15 2:20 PM) Negative 04/21/2015 [facility] MOLECULAR DIAGNOSTIC N gonorrhea by Amp Det (APTIMA) Negative *NA* (04/19/15 12:25 AM) Negative 04/19/2015 [facility] MOLECULAR DIAGNOSTIC Source APTIMA Endocervix *NA* (04/19/15 12:25 AM) 04/19/2015 [facility] MOLECULAR DIAGNOSTIC C trachomatis by Amp Det (APTIMA) Negative *NA* (04/19/15 12:25 AM) Negative 04/19/2015 [facility] MOLECULAR DIAGNOSTIC Source [facility]TIM[facility] Endocervix *NA* (04/19/15 12:25 AM) 04/19/2015 [facility] CHEM PANEL eGFR 99 04/19/2015 Result Comment: The eGFR is calculated [...] by the estimated BMI. [facility] CHEM PANEL Potassium Lvl 3.5 3.5 - 5.1 04/19/2015 [facility] CHEM PANEL Sodium Lvl 137 135 - 145 04/19/2015 [facility] CHEM PANEL Creatinine Lvl 0.8 0.5 - 1.4 04/19/2015 [facility] CHEM PANEL Calcium Lvl 8.0 8.5 - 10.5 04/19/2015 [facility] CHEM PANEL Chloride Lvl 105 95 - 109 04/19/2015 [facility] CHEM PANEL ALT 33 0 - 65 04/19/2015 [facility] CHEM PANEL BUN 18 7 - 22 04/19/2015 [facility] CHEM PANEL CO2 24 24 - 32 04/19/2015 [facility] CHEM PANEL AST 24 0 - 37 04/19/2015 [facility] CHEM PANEL Bili Total 0.3 0.2 - 1.3 04/19/2015 [facility] CHEM PANEL Alk Phos 87 39 - 136 04/19/2015 [facility] CHEM PANEL Total Protein 7.2 6.4 - 8.4 04/19/2015 [facility] CHEM PANEL Albumin Lvl 3.3 3.5 - 5.0 04/19/2015 [facility] CHEM PANEL Glucose Lvl 163 70 - 99 04/19/2015 [facility] CHEM PANEL Globulin 3.9 2.0 - 4.0 04/19/2015 [facility] CHEM PANEL A/G Ratio 0.8 0.7 - 1.6 04/19/2015 [facility] CHEM PANEL AGAP 11.5 10.0 - 20.0 04/19/2015 [facility] CHEM PANEL B/C Ratio 22 6 - 25 04/19/2015 [facility] CHEM PANEL Amylase Lvl 21 25 - 115 04/19/2015 [facility] CHEM PANEL Lipase Lvl 201 73 - 393 04/19/2015 [facility] HEMATOLOGY Eosinophils # 0.2 0.0 - 0.5 04/19/2015 [facility] HEMATOLOGY Segs-Bands # 7.0 1.5 - 8.1 04/19/2015 [facility] HEMATOLOGY Eosinophils 1.9 0.0 - 4.0 04/19/2015 [facility] HEMATOLOGY Basophils 0.5 0.0 - 1.0 04/19/2015 [facility] HEMATOLOGY Basophils # 0.1 0.0 - 0.2 04/19/2015 [facility] HEMATOLOGY Monocytes 5.7 2.0 - 12.0 04/19/2015 [facility] HEMATOLOGY Lymphocytes # 3.4 1.0 - 5.5 04/19/2015 [facility] HEMATOLOGY Monocytes # 0.6 0.0 - 0.8 04/19/2015 [facility] HEMATOLOGY Segs 61.8 45.0 - 75.0 04/19/2015 [facility] HEMATOLOGY Lymphocytes 30.1 20.0 - 40.0 04/19/2015 [facility] HEMATOLOGY WBC 11.4 3.7 - 10.4 04/19/2015 [facility] HEMATOLOGY RBC 4.40 4.20 - 5.40 04/19/2015 [facility] HEMATOLOGY RDW 13.9 11.5 - 14.5 04/19/2015 [facility] HEMATOLOGY Platelet 290 133 - 450 04/19/2015 [facility] HEMATOLOGY MPV 9.0 7.4 - 10.4 04/19/2015 [facility] HEMATOLOGY Hgb 12.1 12.0 - 16.0 04/19/2015 [facility] HEMATOLOGY Hct 36.7 36.0 - 48.0 04/19/2015 [facility] HEMATOLOGY MCV 83.4 80.0 - 98.0 04/19/2015 [facility] HEMATOLOGY MCH 27.5 27.0 - 31.0 04/19/2015 [facility] HEMATOLOGY MCHC 33.0 32.0 - 36.0 04/19/2015 [facility] URINE AND STOOL UA Turbidity Marked *ABN* (04/18/15 11:16 PM) Clear 04/19/2015 [facility] URINE AND STOOL UA Color Yellow *NA* (04/18/15 11:16 PM) Yellow 04/19/2015 [facility] URINE AND STOOL UA Bili Negative *NA* (04/18/15 11:16 PM) Negative 04/19/2015 [facility] URINE AND STOOL UA Ketones Negative [...] /LPF 04/19/2015 [facility] URINE AND STOOL UA [place] Yeast Occasional /HPF None Seen /HPF 04/19/2015 [facility] URINE AND STOOL UA Bacteria Occasional /HPF None Seen /HPF 04/19/2015 [facility] URINE AND STOOL UA RBC 23 0 - 2 04/19/2015 [facility] URINE AND STOOL UA Hyal Cast 1 0 - 2 04/19/2015 [facility] URINE AND STOOL UA WBC 40 0 - 5 04/19/2015 [facility] URINE AND STOOL UA Leuk Est Large *ABN* (04/18/15 11:16 PM) Negative 04/19/2015 [facility] URINE AND STOOL UA Urobilinogen 2.0 0.1 - 1.0 04/19/2015 [facility] URINE AND STOOL UA Nitrite Negative (04/18/15 11:16 PM) Negative 04/19/2015 [facility] URINE AND STOOL UA Blood Small *ABN* (04/18/15 11:16 PM) Negative 04/19/2015 [facility] URINE CHEM U Preg Negative (04/18/15 11:16 PM) Negative 04/19/2015 [facility] HEMATOLOGY Basophils 1.1 0.0 - 1.0 03/10/2015 [facility] HEMATOLOGY Monocytes 5.4 2.0 - 12.0 03/10/2015 [facility] HEMATOLOGY Lymphocytes 26.4 20.0 - 40.0 03/10/2015 [facility] HEMATOLOGY Segs 65.0 45.0 - 75.0 03/10/2015 [facility] HEMATOLOGY Eosinophils 2.1 0.0 - 4.0 03/10/2015 [facility] HEMATOLOGY Lymphocytes # 3.2 1.0 - 5.5 03/10/2015 [facility] Segs-Bands # 8.0 1.5 - 8.1 03/10/2015 [facility] Eosinophils # 0.3 0.0 - 0.5 03/10/2015 [facility] Monocytes # 0.7 0.0 - 0.8 03/10/2015 [facility] Basophils # 0.1 0.0 - 0.2 03/10/2015 [facility] MCV 83.5 80.0 - 98.0 03/10/2015 [facility] Hct 35.6 36.0 - 48.0 03/10/2015 [facility] MCH 27.5 27.0 - 31.0 03/10/2015 [facility] RDW 14.7 11.5 - 14.5 03/10/2015 [facility] MCHC 32.9 32.0 - 36.0 03/10/2015 [facility] WBC 12.2 3.7 - 10.4 03/10/2015 [facility] Hgb 11.7 12.0 - 16.0 03/10/2015 [facility] RBC 4.26 4.20 - 5.40 03/10/2015 [facility] Platelet 309 133 - 450 03/10/2015 [facility] MPV 8.8 7.4 - 10.4 03/10/2015 [facility] MOLECULAR DIAGNOSTIC Source APTIMA Urine *NA* (03/09/15 5:30 PM) 03/09/2015 [facility] MOLECULAR DIAGNOSTIC N gonorrhea by Amp Det (APTIMA) Negative 3 *NA* (03/09/15 5:30 PM) Negative 03/09/2015 <sup>3</sup>Interpretive Data: The APTIMA assay is a target amplification nucleic acid probe test utilizing target capture for the qualitative detection and differentiation of ribosomal RNA from Neisseria gonorrhoeae to aid in the diagnosis of disease from symptomatic and asymptomatic individuals using the [employer] System.
This assay utilizes FDA cleared IVD reagents. Performance characteristics have been verified by the [facility] within [facility]. The [facility] is authorized under the Clinical Laboratory Improvement Amendments of 1988 (CLIA-88) to perform high complexity testing. [facility] URINE AND STOOL UA Urobilinogen <=1.0 mg/dL 0.1 - 1.0 03/09/2015 [facility] URINE AND STOOL UA WBC 3 0 - 5 03/09/2015 [facility] URINE AND STOOL UA RBC 11 0 - 2 03/09/2015 [facility] URINE AND STOOL UA Sq Epi Moderate /LPF Few /LPF 03/09/2015 [facility] URINE AND STOOL UA pH 6.0 5.0 - 8.0 03/09/2015 [facility] URINE AND STOOL UA Protein Negative mg/dL Negative mg/dL 03/09/2015 [facility] URINE AND STOOL UA Glucose 150 mg/dL Negative mg/dL 03/09/2015 [facility] URINE AND STOOL UA Leuk Est Moderate *ABN* (03/09/15 5:30 PM) Negative 03/09/2015 [facility] URINE AND STOOL UA Nitrite Negative (03/09/15 5:30 PM) Negative 03/09/2015 [facility] URINE AND STOOL UA Color Yellow *NA* (03/09/15 5:30 PM) Yellow 03/09/2015 [facility] URINE AND STOOL UA Turbidity Clear (03/09/15 5:30 PM) Clear 03/09/2015 [facility] URINE AND STOOL UA Spec Grav 1.025 <=1.030 03/09/2015 [facility] URINE AND STOOL UA Mucus Few /LPF None Seen /LPF 03/09/2015 [facility] URINE AND STOOL UA Bacteria Occasional /HPF None Seen /HPF 03/09/2015 [facility] URINE AND STOOL UA Blood Small *ABN* (03/09/15 5:30 PM) Negative 03/09/2015 [facility] URINE AND STOOL UA Bili Negative *NA* (03/09/15 5:30 PM) Negative 03/09/2015 [facility] URINE AND STOOL UA Ketones Trace mg/dL Negative mg/dL 03/09/2015 [facility] URINE CHEM U Preg Negative (03/09/15 5:30 PM) Negative 03/09/2015 [facility] CHEM PANEL eGFR 99 03/09/2015 <sup>1</sup>Result Comment: The eGFR is calculated using the CKD-EPI formula. In most young, healthy individuals the eGFR will be >90 mL/min/1.73m2. The eGFR declines with age. An eGFR of 60-89 may be normal in some populations, particularly the elderly, for whom the CKD-EPI formula has not been extensively validated. Use of the eGFR is not recommended in the following populations:& lt;br/>
Individuals with unstable creatinine concentrations, including patients [...] should be multiplied by the estimated BMI. [facility] CHEM PANEL AGAP 9.0 10.0 - 20.0 03/09/2015 [facility] CHEM PANEL Calcium Lvl 8.4 8.5 - 10.5 03/09/2015 [facility] CHEM PANEL CO2 27 24 - 32 03/09/2015 [facility] CHEM PANEL Chloride Lvl 105 95 - 109 03/09/2015 [facility] CHEM PANEL BUN 14 7 - 22 03/09/2015 [facility] CHEM PANEL Creatinine Lvl 0.8 0.5 - 1.4 03/09/2015 [facility] CHEM PANEL Potassium Lvl 4.0 3.5 - 5.1 03/09/2015 [facility] CHEM PANEL Sodium Lvl 137 135 - 145 03/09/2015 [facility] CHEM PANEL Glucose Lvl 152 70 - 99 03/09/2015 <sup>2</sup>Interpretive Data: Adult reference range values reflect the clinical guidelines
of the [place] [employer]. [facility] CHEM PANEL Magnesium Lvl 2.0 1.8 - 2.4 03/09/2015 [facility] URINE AND STOOL UA Color Ltyellow 11/04/2014 [facility] URINE AND STOOL UA Urobilinogen <=1.0 mg/dL 0.1 - 1.0 11/04/2014 [facility] URINE AND STOOL UA Leuk Est Trace *ABN* (11/04/14 9:24 AM) Negative 11/04/2014 [facility] URINE AND STOOL UA WBC 4 0 - 5 11/04/2014 [facility] URINE AND STOOL UA RBC 1 0 - 2 11/04/2014 [facility] URINE AND STOOL UA Sq Epi Few /LPF Few /LPF 11/04/2014 [facility] URINE AND STOOL UA Ketones Negative mg/dL Negative mg/dL 11/04/2014 [facility] URINE AND STOOL UA Bili Negative *NA* (11/04/14 9:24 AM) Negative 11/04/2014 [facility] URINE AND STOOL UA Glucose Negative mg/dL Negative mg/dL 11/04/2014 [facility] URINE AND STOOL UA Blood Small *ABN* (11/04/14 9:24 AM) Negative 11/04/2014 [facility] URINE AND STOOL UA Nitrite Negative (11/04/14 9:24 AM) Negative 11/04/2014 [facility] URINE AND STOOL UA Turbidity Clear (11/04/14 9:24 AM) Clear 11/04/2014 [facility] URINE AND STOOL UA Protein Negative mg/dL Negative mg/dL 11/04/2014 [facility] URINE AND STOOL UA Spec Grav 1.014 <=1.030 11/04/2014 [facility] URINE AND STOOL UA pH 5.0 5.0 - 8.0 11/04/2014 [facility] URINE CHEM U Preg Negative (11/04/14 9:24 AM) Negative 11/04/2014 [facility] CHEM PANEL Lipase Lvl 163 73 - 393 11/04/2014 [facility] CHEM PANEL eGFR 117 11/04/2014 <sup>1</sup>Result Comment: The eGFR is calculated using the CKD-EPI formula. In most young, healthy individuals the eGFR will be >90 mL/min/1.73m2. The eGFR declines with age. An eGFR of 60-89 may be normal in some populations, particularly the elderly, for whom the CKD-EPI formula has not been extensively validated. Use of the eGFR is not recommended in the following populations:& lt;br/>
Individuals with unstable creatinine concentrations, including patients [...] should be multiplied by the estimated BMI. [facility] CHEM PANEL BUN 13 7 - 22 11/04/2014 [facility] CHEM PANEL CO2 29 24 - 32 11/04/2014 [facility] CHEM PANEL ALT 45 0 - 65 11/04/2014 [facility] CHEM PANEL Creatinine Lvl 0.7 0.5 - 1.4 11/04/2014 [facility] CHEM PANEL Total Protein 6.6 6.4 - 8.4 11/04/2014 [facility] [facility] CHEM PANEL Albumin Lvl 3.0 3.5 - 5.0 11/04/2014 [facility] CHEM PANEL Bili Total 0.3 0.2 - 1.3 11/04/2014 [facility] CHEM PANEL Alk Phos 74 39 - 136 11/04/2014 [facility] CHEM PANEL AST 21 0 - 37 11/04/2014 [facility] CHEM PANEL Glucose Lvl 142 70 - 99 11/04/2014 <sup>2</sup>Interpretive Data: Adult reference range values reflect the clinical guidelines
of the [employer] [employer]. [facility] CHEM PANEL Sodium Lvl 138 135 - 145 11/04/2014 [facility] CHEM PANEL Potassium Lvl 4.3 3.5 - 5.1 11/04/2014 [facility] CHEM PANEL Chloride Lvl 107 95 - 109 11/04/2014 [facility] CHEM PANEL Calcium Lvl 8.0 8.5 - 10.5 11/04/2014 [facility] CHEM PANEL Globulin 3.6 2.0 - 4.0 11/04/2014 [facility] CHEM PANEL A/G Ratio 0.8 0.7 - 1.6 11/04/2014 [facility] CHEM PANEL B/C Ratio 19 6 - 25 11/04/2014 [facility] CHEM PANEL AGAP 6.3 10.0 - 20.0 11/04/2014 [facility] HEMATOLOGY Monocytes # 0.5 0.0 - 0.8 11/04/2014 [facility] HEMATOLOGY Segs-Bands # 5.5 1.5 - 8.1 11/04/2014 [facility] HEMATOLOGY Lymphocytes # 3.0 1.0 - 5.5 11/04/2014 [facility] HEMATOLOGY Basophils 0.7 0.0 - 1.0 11/04/2014 [facility] HEMATOLOGY Basophils # 0.1 0.0 - 0.2 11/04/2014 [facility] HEMATOLOGY Monocytes 5.5 2.0 - 12.0 11/04/2014 [facility] HEMATOLOGY Eosinophils 2.0 0.0 - 4.0 11/04/2014 [facility] HEMATOLOGY Segs 59.7 45.0 - 75.0 11/04/2014 [facility] HEMATOLOGY Lymphocytes 32.1 20.0 - 40.0 11/04/2014 [facility] HEMATOLOGY Eosinophils # 0.2 0.0 - 0.5 11/04/2014 [facility] HEMATOLOGY WBC 9.3 3.7 - 10.4 11/04/2014 [facility] HEMATOLOGY MCV 82.7 80.0 - 98.0 11/04/2014 [facility] HEMATOLOGY Hct 36.9 36.0 - 48.0 11/04/2014 [facility] HEMATOLOGY Hgb 12.3 12.0 - 16.0 11/04/2014 [facility] HEMATOLOGY RBC 4.46 4.20 - 5.40 11/04/2014 [facility] HEMATOLOGY MCH 27.5 27.0 - 31.0 11/04/2014 [facility] HEMATOLOGY MPV 8.8 7.4 - 10.4 11/04/2014 [facility] HEMATOLOGY Platelet 318 133 - 450 11/04/2014 [facility] HEMATOLOGY RDW 14.0 11.5 - 14.5 11/04/2014 [facility] HEMATOLOGY MCHC 33.2 32.0 - 36.0 11/04/2014 [facility] URINE AND STOOL UA Urobilinogen <=1.0 mg/dL 0.1 - 1.0 10/30/2014 [facility] URINE AND STOOL UA Bacteria Occasional /HPF None Seen /HPF 10/30/2014 [facility] URINE AND STOOL UA Turbidity Marked *ABN* (10/30/14 8:37 AM) Clear 10/30/2014 [facility] URINE AND STOOL UA Color Yellow *NA* (10/30/14 8:37 AM) Yellow 10/30/2014 [facility] URINE AND STOOL UA Protein Negative mg/dL Negative mg/dL 10/30/2014 [facility] URINE AND STOOL UA Glucose Negative mg/dL Negative mg/dL 10/30/2014 [facility] URINE AND STOOL UA pH 5.0 5.0 - 8.0 10/30/2014 [facility] URINE AND STOOL UA Spec Grav 1.029 <=1.030 10/30/2014 [facility] URINE AND STOOL UA Mucus Few /LPF None Seen /LPF 10/30/2014 [facility] URINE AND STOOL UA Leuk Est Moderate *ABN* (10/30/14 8:37 AM) Negative 10/30/2014 [facility] URINE AND STOOL UA Sq Epi Many /LPF Few /LPF 10/30/2014 [facility] URINE AND STOOL UA RBC 4 0 - 2 10/30/2014 [facility] URINE AND STOOL UA WBC 21 0 - 5 10/30/2014 [facility] URINE AND STOOL UA Bili Negative *NA* (10/30/14 8:37 AM) Negative 10/30/2014 [facility] URINE AND STOOL UA Ketones Negative mg/dL Negative mg/dL 10/30/2014 [facility] URINE AND STOOL UA Nitrite Negative (10/30/14 8:37 AM) Negative 10/30/2014 [facility] URINE AND STOOL UA Blood Moderate *ABN* (10/30/14 8:37 AM) Negative 10/30/2014 [facility] URINE CHEM U Preg Negative (10/30/14 8:37 AM) Negative 10/30/2014 [facility] ELECTROLYTES Sodium Lvl 136 135 - 145 10/30/2014 [facility] ELECTROLYTES Chloride Lvl 107 95 - 109 10/30/2014 [facility] ELECTROLYTES Potassium Lvl 3.8 3.5 - 5.1 10/30/2014 [facility] ELECTROLYTES Calcium Lvl 8.3 8.5 - 10.5 10/30/2014 [facility] ELECTROLYTES eGFR 117 10/30/2014 <sup>1</sup>Result Comment: The eGFR is calculated using the CKD-EPI formula. In most young, healthy individuals the eGFR will be >90 mL/min/1.73m2. The eGFR declines with age. An eGFR of 60-89 may be normal in some populations, particularly the elderly, for whom the CKD-EPI formula has not been extensively validated. Use of the eGFR is not recommended in the following populations:& lt;br/>
Individuals with unstable creatinine concentrations, including patients [...] should be multiplied by the estimated BMI. [facility] ELECTROLYTES Creatinine Lvl 0.7 0.5 - 1.4 10/30/2014 [facility] ELECTROLYTES CO2 23 24 - 32 10/30/2014 [facility] ELECTROLYTES Albumin Lvl 3.4 3.5 - 5.0 10/30/2014 [facility] ELECTROLYTES ALT 31 0 - 65 10/30/2014 [facility] ELECTROLYTES Alk Phos 85 39 - 136 10/30/2014 [facility] ELECTROLYTES AST 22 0 - 37 10/30/2014 [facility] ELECTROLYTES Total Protein 7.4 6.4 - 8.4 10/30/2014 [facility] ELECTROLYTES Bili Total 0.3 0.2 - 1.3 10/30/2014 [facility] ELECTROLYTES Glucose Lvl 129 70 - 99 10/30/2014 <sup>2</sup>Interpretive Data: Adult reference range values reflect the clinical guidelines
of the [place] [employer]. [facility] ELECTROLYTES BUN 14 7 - 22 10/30/2014 [facility] ELECTROLYTES A/G Ratio 0.8 0.7 - 1.6 10/30/2014 [facility] ELECTROLYTES AGAP 9.8 10.0 - 20.0 10/30/2014 [facility] ELECTROLYTES B/C Ratio 20 6 - 25 10/30/2014 [facility] ELECTROLYTES Globulin 4.0 2.0 - 4.0 10/30/2014 [facility] HEMATOLOGY Basophils 0.8 0.0 - 1.0 10/30/2014 [facility] HEMATOLOGY Segs-Bands # 6.0 1.5 - 8.1 10/30/2014 [facility] HEMATOLOGY Monocytes # 0.6 0.0 - 0.8 10/30/2014 [facility] HEMATOLOGY Lymphocytes # 1.8 1.0 - 5.5 10/30/2014 [facility] HEMATOLOGY Eosinophils # 0.2 0.0 - 0.5 10/30/2014 [facility] HEMATOLOGY Basophils # 0.1 0.0 - 0.2 10/30/2014 [facility] HEMATOLOGY Eosinophils 2.8 0.0 - 4.0 10/30/2014 [facility] HEMATOLOGY Monocytes 7.1 2.0 - 12.0 10/30/2014 [facility] HEMATOLOGY Segs 68.8 45.0 - 75.0 10/30/2014 [facility] HEMATOLOGY Lymphocytes 20.5 20.0 - 40.0 10/30/2014 [facility] HEMATOLOGY WBC 8.7 3.7 - 10.4 10/30/2014 [facility] HEMATOLOGY RBC 4.70 4.20 - 5.40 10/30/2014 [facility] HEMATOLOGY Hgb 12.8 12.0 - 16.0 10/30/2014 [facility] HEMATOLOGY Hct 38.8 36.0 - 48.0 10/30/2014 [facility] HEMATOLOGY MCV 82.6 80.0 - 98.0 10/30/2014 [facility] HEMATOLOGY MCH 27.2 27.0 - 31.0 10/30/2014 [facility] HEMATOLOGY MCHC 32.9 32.0 - 36.0 10/30/2014 [facility] HEMATOLOGY RDW 14.3 11.5 - 14.5 10/30/2014 [facility] HEMATOLOGY Platelet 334 133 - 450 10/30/2014 [facility] HEMATOLOGY MPV 8.7 7.4 - 10.4 10/30/2014 [facility] URINE AND STOOL UA Urobilinogen <=1.0 mg/dL 0.1 - 1.0 06/23/2014 [facility] URINE AND STOOL UA Color Ltyellow 06/23/2014 [facility] URINE AND STOOL UA Bacteria Occasional /HPF None Seen /HPF 06/23/2014 [facility] URINE AND STOOL UA RBC 2 0 - 2 06/23/2014 [facility] URINE AND STOOL UA Sq Epi Few /LPF Few /LPF 06/23/2014 [facility] URINE AND STOOL UA WBC 11 0 - 5 06/23/2014 [facility] URINE AND STOOL UA Leuk Est Small *ABN* (06/23/14 9:40 AM) Negative 06/23/2014 [facility] URINE AND STOOL UA Nitrite Negative (06/23/14 9:40 AM) Negative 06/23/2014 [facility] URINE AND STOOL UA Blood Small *ABN* (06/23/14 9:40 AM) Negative 06/23/2014 [facility] URINE AND STOOL UA Spec Grav 1.015 <=1.030 06/23/2014 [facility] URINE AND STOOL UA Glucose Negative mg/dL Negative mg/dL 06/23/2014 [facility] URINE AND STOOL UA Turbidity Slight *ABN* (06/23/14 9:40 AM) Clear 06/23/2014 [facility] URINE AND STOOL UA Protein Negative mg/dL Negative mg/dL 06/23/2014 [facility] URINE AND STOOL UA pH 5.0 5.0 - 8.0 06/23/2014 [facility] URINE AND STOOL UA Bili Negative *NA* (06/23/14 9:40 AM) Negative 06/23/2014 [facility] URINE AND STOOL UA Ketones Negative mg/dL Negative mg/dL 06/23/2014 [facility] URINE CHEM U Preg Negative (06/23/14 9:40 AM) Negative 06/23/2014 [facility] CHEM PANEL eGFR 117 06/23/2014 <sup>1</sup>Result Comment: The eGFR is calculated using the CKD-EPI formula. In most young, healthy individuals the eGFR will be >90 mL/min/1.73m2. The eGFR declines with age. An eGFR of 60-89 may be normal in some populations, particularly the elderly, for whom the CKD-EPI formula has not been extensively validated. Use of the eGFR is not recommended in the following populations:& lt;br/>
Individuals with unstable creatinine concentrations, including patients [...] should be multiplied by the estimated BMI. [facility] CHEM PANEL Chloride Lvl 106 95 - 109 06/23/2014 [facility] CHEM PANEL Potassium Lvl 3.8 3.5 - 5.1 06/23/2014 [facility] CHEM PANEL CO2 24 24 - 32 06/23/2014 [facility] CHEM PANEL Calcium Lvl 8.4 8.5 - 10.5 06/23/2014 [facility] CHEM PANEL BUN 12 7 - 22 06/23/2014 [facility] CHEM PANEL Glucose Lvl 158 70 - 99 06/23/2014 <sup>2</sup>Interpretive Data: Adult reference range values reflect the clinical guidelines
of the [place] [employer]. [facility] CHEM PANEL Sodium Lvl 137 135 - 145 06/23/2014 [facility] CHEM PANEL Creatinine Lvl 0.7 0.5 - 1.4 06/23/2014 [facility] CHEM PANEL AGAP 10.8 10.0 - 20.0 06/23/2014 [facility] ENDOCRINOLOGY S Preg Negative *NA* (06/23/14 8:54 AM) Negative 06/23/2014 [facility] HEMATOLOGY Eosinophils # 0.3 0.0 - 0.5 06/23/2014 [facility] HEMATOLOGY Monocytes # 0.5 0.0 - 0.8 06/23/2014 [facility] HEMATOLOGY Basophils # 0.1 0.0 - 0.2 06/23/2014 [facility] HEMATOLOGY Lymphocytes 28.8 20.0 - 40.0 06/23/2014 [facility] HEMATOLOGY Segs 62.7 45.0 - 75.0 06/23/2014 [facility] HEMATOLOGY Eosinophils 2.7 0.0 - 4.0 06/23/2014 [facility] HEMATOLOGY Monocytes 5.1 2.0 - 12.0 06/23/2014 [facility] HEMATOLOGY Basophils 0.7 0.0 - 1.0 06/23/2014 [facility] HEMATOLOGY Segs-Bands # 6.3 1.5 - 8.1 06/23/2014 [facility] HEMATOLOGY Lymphocytes # 2.9 1.0 - 5.5 06/23/2014 [facility] HEMATOLOGY MCHC 32.3 32.0 - 36.0 06/23/2014 [facility] HEMATOLOGY RDW 14.2 11.5 - 14.5 06/23/2014 [facility] HEMATOLOGY Platelet 336 133 - 450 06/23/2014 [facility] HEMATOLOGY MPV 8.9 7.4 - 10.4 06/23/2014 [facility] HEMATOLOGY MCV 83.5 80.0 - 98.0 06/23/2014 [facility] HEMATOLOGY MCH 27.0 27.0 - 31.0 06/23/2014 [facility] HEMATOLOGY Hct 36.7 36.0 - 48.0 06/23/2014 [facility] HEMATOLOGY RBC 4.39 4.20 - 5.40 06/23/2014 [facility] HEMATOLOGY Hgb 11.9 12.0 - 16.0 06/23/2014 [facility] HEMATOLOGY WBC 10.1 3.7 - 10.4 06/23/2014 [facility] CHEMISTRY Lipase Lvl 167 73 - 393 07/09/2012 Normal [facility] CHEMISTRY B/C Ratio 13 6 - 25 07/09/2012 Normal [facility] CHEMISTRY AGAP 9.9 10.0 - 20.0 07/09/2012 LOW [facility] CHEMISTRY Globulin 3.8 2.0 - 4.0 07/09/2012 Normal [facility] CHEMISTRY A/G Ratio 0.9 0.7 - 1.6 07/09/2012 Normal [facility] CHEMISTRY Glucose Lvl 105 70 - 99 07/09/2012 [facility] <sup>2</sup>Interpretive Data: Adult reference range values reflect the clinical guidelines
of the [place] [employer]. [facility] CHEMISTRY BUN 12 7 - 22 07/09/2012 Normal [facility] CHEMISTRY Creatinine Lvl 0.9 0.5 - 1.4 07/09/2012 Normal [facility] CHEMISTRY CO2 27 24 - 32 07/09/2012 Normal [facility] CHEMISTRY Calcium Lvl 8.3 8.5 - 10.5 07/09/2012 LOW [facility] CHEMISTRY Sodium Lvl 141 135 - 145 07/09/2012 Normal [facility] CHEMISTRY Potassium Lvl 3.9 3.5 - 5.1 07/09/2012 Normal [facility] CHEMISTRY Chloride Lvl 108 95 - 109 07/09/2012 Normal [facility] CHEMISTRY Albumin Lvl 3.3 3.5 - 5.0 07/09/2012 LOW [facility] CHEMISTRY eGFR 88 07/09/2012 NA <sup>1</sup>Result Comment: The eGFR is calculated using the CKD-EPI formula. In most young, healthy individuals the eGFR will be >90 mL/min/1.73m2. The eGFR declines with age. An eGFR of 60-89 may be normal in some populations, particularly the elderly, for whom the CKD-EPI formula has not been extensively validated. Use of the eGFR is not recommended in the following populations:& lt;br/>
Individuals with unstable creatinine concentrations, including patients [...] should be multiplied by the estimated BMI. [facility] CHEMISTRY Alk Phos 82 39 - 136 07/09/2012 Normal [facility] CHEMISTRY Bili Total 0.2 0.2 - 1.3 07/09/2012 Normal [facility] CHEMISTRY ALT 29 0 - 65 07/09/2012 Normal [facility] CHEMISTRY Total Protein 7.1 6.4 - 8.4 07/09/2012 Normal [facility] CHEMISTRY AST 19 0 - 37 07/09/2012 Normal [facility] HEMATOLOGY Lymphocytes # 3.4 1.0 - 5.5 07/09/2012 Normal [facility] HEMATOLOGY Eosinophils # 0.2 0.0 - 0.5 07/09/2012 Normal [facility] HEMATOLOGY Basophils # 0.0 0.0 - 0.2 07/09/2012 Normal [facility] HEMATOLOGY Monocytes # 0.6 0.0 - 0.8 07/09/2012 Normal [facility] HEMATOLOGY Segs-Bands # 5.5 1.5 - 8.1 07/09/2012 Normal [facility] HEMATOLOGY Monocytes 6.6 2.0 - 12.0 07/09/2012 Normal [facility] HEMATOLOGY Lymphocytes 34.9 20.0 - 40.0 07/09/2012 Normal [facility] HEMATOLOGY Segs 56.4 45.0 - 75.0 07/09/2012 Normal [facility] HEMATOLOGY Basophils 0.4 0.0 - 1.0 07/09/2012 Normal [facility] HEMATOLOGY Eosinophils 1.7 0.0 - 4.0 07/09/2012 Normal [facility] HEMATOLOGY WBC 9.8 3.7 - 10.4 07/09/2012 Normal [facility] HEMATOLOGY MCV 84.0 81.0 - 99.0 07/09/2012 Normal [facility] HEMATOLOGY MCH 27.9 27.0 - 31.0 07/09/2012 Normal [facility] HEMATOLOGY MPV 9.0 7.4 - 10.4 07/09/2012 Normal [facility] HEMATOLOGY Hgb 11.8 12.0 - 16.0 07/09/2012 LOW [facility] HEMATOLOGY RBC 4.22 4.20 - 5.40 07/09/2012 Normal [facility] HEMATOLOGY Hct 35.5 36.0 - 48.0 07/09/2012 LOW [facility] HEMATOLOGY MCHC 33.2 32.0 - 36.0 07/09/2012 Normal [facility] HEMATOLOGY RDW 14.5 11.5 - 14.5 07/09/2012 Normal [facility] HEMATOLOGY Platelet 305 133 - 450 07/09/2012 Normal [facility] CHEMISTRY U Preg Negative (07/08/2012 22:53:00) Negative 07/09/2012 Normal [facility] URINALYSIS UA Urobilinogen 0.2 0.1 - 1.0 07/09/2012 Normal [facility] URINALYSIS UA Nitrite Negative (07/08/2012 22:53:00) Negative 07/09/2012 Normal [facility] URINALYSIS UA Ketones Negative *NA* (07/08/2012 22:53:00) Negative 07/09/2012 NA [facility] URINALYSIS UA Blood Small *ABN* (07/08/2012 22:53:00) Negative 07/09/2012 ABN [facility] URINALYSIS UA Glucose Negative (07/08/2012 22:53:00) Negative 07/09/2012 Normal [facility] URINALYSIS UA Bili Negative *NA* (07/08/2012 22:53:00) Negative 07/09/2012 NA [facility] URINALYSIS UA Protein Negative (07/08/2012 22:53:00) Negative 07/09/2012 Normal [facility] URINALYSIS UA pH 7.0 5.0 - 8.0 07/09/2012 Normal [facility] URINALYSIS UA Leuk Est Negative (07/08/2012 22:53:00) Negative 07/09/2012 Normal [facility] URINALYSIS UA Color Yellow *NA* (07/08/2012 22:53:00) Yellow 07/09/2012 NA [facility] URINALYSIS UA Turbidity Clear (07/08/2012 22:53:00) Clear 07/09/2012 Normal [facility] URINALYSIS UA Spec Grav 1.025 <=1.030 07/09/2012 Normal [facility] URINALYSIS UA Sq Epi Many /LPF *ABN* (07/08/2012 22:53:00) Few 07/09/2012 ABN [facility] URINALYSIS UA RBC 2 0 - 2 07/09/2012 Normal [facility] URINALYSIS UA Bacteria Few /HPF *NA* (07/08/2012 22:53:00) None Seen 07/09/2012 NA [facility] URINALYSIS UA Mucus Few /LPF *NA* (07/08/2012 22:53:00) None Seen 07/09/2012 NA [facility] URINALYSIS UA WBC 8 0 - 5 07/09/2012 HI [facility] CHEMISTRY U Preg Negative (04/22/2012 08:19:00) Negative 04/22/2012 Normal [facility] CHEMISTRY U Preg Negative (04/16/2012 08:45:00) Negative 04/16/2012 Normal [facility] CHEMISTRY AGAP 12.0 10.0 - 20.0 04/16/2012 Normal [facility] CHEMISTRY Creatinine Lvl 1.0 0.5 - 1.4 04/16/2012 Normal [facility] CHEMISTRY BUN 13 7 - 22 04/16/2012 Normal [facility] CHEMISTRY Calcium Lvl 8.4 8.5 - 10.5 04/16/2012 LOW [facility] CHEMISTRY CO2 24 24 - 32 04/16/2012 Normal [facility] CHEMISTRY Glucose Lvl 112 70 - 99 04/16/2012 [place] <sup>1</sup>Interpretive Data: Adult reference range values reflect the clinical guidelines
of the [place] [employer]. [facility] CHEMISTRY Potassium Lvl 4.0 3.5 - 5.1 04/16/2012 Normal [facility] CHEMISTRY Sodium Lvl 139 135 - 145 04/16/2012 Normal [facility] CHEMISTRY Chloride Lvl 107 95 - 109 04/16/2012 Normal [facility] HEMATOLOGY MCV 82.7 81.0 - 99.0 04/16/2012 Normal [facility] HEMATOLOGY RDW 14.4 11.5 - 14.5 04/16/2012 Normal [facility] HEMATOLOGY MCH 27.5 27.0 - 31.0 04/16/2012 Normal [facility] HEMATOLOGY MCHC 33.2 32.0 - 36.0 04/16/2012 Normal [facility] HEMATOLOGY Hct 37.5 36.0 - 48.0 04/16/2012 Normal [facility] HEMATOLOGY WBC 8.7 3.7 - 10.4 04/16/2012 Normal [facility] HEMATOLOGY Hgb 12.4 12.0 - 16.0 04/16/2012 Normal [facility] HEMATOLOGY RBC 4.53 4.20 - 5.40 04/16/2012 Normal [facility] HEMATOLOGY Platelet 313 133 - 450 04/16/2012 Normal [facility] HEMATOLOGY MPV 8.9 7.4 - 10.4 04/16/2012 Normal [facility] HEMATOLOGY Basophils # 0.0 0.0 - 0.2 04/16/2012 Normal [facility] HEMATOLOGY Monocytes # 0.6 0.0 - 0.8 04/16/2012 Normal [facility] HEMATOLOGY Eosinophils # 0.1 0.0 - 0.5 04/16/2012 Normal [facility] HEMATOLOGY Segs-Bands # 5.2 1.5 - 8.1 04/16/2012 Normal [facility] HEMATOLOGY Lymphocytes # 2.9 1.0 - 5.5 04/16/2012 Normal [facility] HEMATOLOGY Basophils 0.4 0.0 - 1.0 04/16/2012 Normal [facility] HEMATOLOGY Eosinophils 1.6 0.0 - 4.0 04/16/2012 Normal [facility] HEMATOLOGY Monocytes 6.4 2.0 - 12.0 04/16/2012 Normal [facility] HEMATOLOGY Lymphocytes 32.6 20.0 - 40.0 04/16/2012 Normal [facility] HEMATOLOGY Segs 59.0 45.0 - 75.0 04/16/2012 Normal [facility] URINALYSIS UA Color Ltyellow 04/16/2012 NA [facility] URINALYSIS UA Urobilinogen 0.1 - 1.0 04/16/2012 NA [facility] URINALYSIS UA RBC 2 0 - 2 04/16/2012 [facility] URINALYSIS UA WBC 2 0 - 5 04/16/2012 Normal [facility] URINALYSIS UA Sq Epi Few /LPF *NA* (04/16/2012 08:45:00) Few 04/16/2012 [facility] URINALYSIS UA Bacteria Occasional /HPF *NA* (04/16/2012 08:45:00) None Seen 04/16/2012 [facility] URINALYSIS UA pH 6.0 5.0 - 8.0 04/16/2012 Normal [facility] URINALYSIS UA Spec Grav 1.014 <=1.030 04/16/2012 Normal [facility] URINALYSIS UA Turbidity Slight *ABN* (04/16/2012 08:45:00) Clear 04/16/2012 ABN [facility] URINALYSIS UA Bili Negative *NA* (04/16/2012 08:45:00) Negative 04/16/2012 [facility] URINALYSIS UA Glucose Negative mg/dL *NA* (04/16/2012 08:45:00) Negative 04/16/2012 [facility] URINALYSIS UA Ketones Negative mg/dL *NA* (04/16/2012 08:45:00) Negative 04/16/2012 [facility] URINALYSIS UA Leuk Est Trace *ABN* (04/16/2012 08:45:00) Negative 04/16/2012 ABN [facility] URINALYSIS UA Nitrite Negative (04/16/2012 08:45:00) Negative 04/16/2012 Normal [facility] URINALYSIS UA Blood Moderate *ABN* (04/16/2012 08:45:00) Negative 04/16/2012 ABN [facility] URINALYSIS UA Protein Negative mg/dL (04/16/2012 08:45:00) Negative 04/16/2012 Normal [facility] IMMUNOLOGY Gonorrhea PCR Negative (04/16/2012 08:43:00) Negative 04/16/2012 Normal [facility] IMMUNOLOGY Source [employer] 04/16/2012 NA [facility] IMMUNOLOGY Chlam PCR Negative (04/16/2012 08:43:00) Negative 04/16/2012 Normal [facility] IMMUNOLOGY Source Chlam endocervix 04/16/2012 NA [facility] RAPID Grp A Strep Scr Negative (11/09/2011 19:45:00) Negative 11/10/2011 Normal [facility] CHEMISTRY Lipase Lvl 160 73 - 393 10/15/2011 Normal [facility] CHEMISTRY Alk Phos 60 39 - 136 10/15/2011 Normal [facility] CHEMISTRY Calcium Lvl 8.7 8.5 - 10.5 10/15/2011 Normal [facility] CHEMISTRY Total Protein 7.6 6.4 - 8.4 10/15/2011 Normal [facility] CHEMISTRY Albumin Lvl 3.8 3.5 - 5.0 10/15/2011 Normal [facility] CHEMISTRY ALT 24 0 - 65 10/15/2011 Normal [facility] CHEMISTRY AST 17 0 - 37 10/15/2011 Normal [facility] CHEMISTRY Bili Total 0.3 0.2 - 1.3 10/15/2011 Normal [facility] CHEMISTRY Sodium Lvl 140 135 - 145 10/15/2011 Normal [facility] CHEMISTRY Potassium Lvl 4.1 3.5 - 5.1 10/15/2011 Normal [facility] CHEMISTRY Chloride Lvl 106 95 - 109 10/15/2011 Normal [facility] CHEMISTRY Creatinine Lvl 0.7 0.5 - 1.4 10/15/2011 Normal [facility] CHEMISTRY Glucose Lvl 76 10/15/2011 NA <sup>1</sup>Interpretive Data: Reference Ranges : 0 - 7 days : 41 - 90 mg/dL 7 days - 150 yrs : 70 - 99 mg/dL (fasting), based on the clinical recommendations of the [place] [employer]. [facility] CHEMISTRY BUN 12 7 - 22 10/15/2011 Normal [facility] CHEMISTRY CO2 24 24 - 32 10/15/2011 Normal [facility] CHEMISTRY Globulin 3.8 2.0 - 4.0 10/15/2011 Normal [facility] CHEMISTRY A/G Ratio 1.0 0.7 - 1.6 10/15/2011 Normal [facility] CHEMISTRY B/C Ratio 17 6 - 25 10/15/2011 Normal [facility] CHEMISTRY AGAP 14.1 10.0 - 20.0 10/15/2011 Normal [facility] CHEMISTRY Amylase Lvl 25 25 - 115 10/15/2011 Normal [facility] CHEMISTRY S Preg Negative *NA* (10/15/2011 14:11:00) Negative 10/15/2011 NA [facility] HEMATOLOGY Basophils # 0.1 0.0 - 0.2 10/15/2011 Normal [facility] HEMATOLOGY Lymphocytes 29.5 20.0 - 40.0 10/15/2011 Normal [facility] HEMATOLOGY Segs 62.2 45.0 - 75.0 10/15/2011 Normal [facility] HEMATOLOGY Segs-Bands # 7.0 1.5 - 8.1 10/15/2011 Normal [facility] HEMATOLOGY Lymphocytes # 3.3 1.0 - 5.5 10/15/2011 Normal [facility] HEMATOLOGY Basophils 1.2 0.0 - 1.0 10/15/2011 [facility] HEMATOLOGY Eosinophils 2.1 0.0 - 4.0 10/15/2011 Normal [facility] HEMATOLOGY Monocytes 5.0 2.0 - 12.0 10/15/2011 Normal [facility] HEMATOLOGY Eosinophils # 0.2 0.0 - 0.5 10/15/2011 Normal [facility] HEMATOLOGY Monocytes # 0.6 0.0 - 0.8 10/15/2011 Normal [facility] HEMATOLOGY Platelet 341 133 - 450 10/15/2011 Normal [facility] HEMATOLOGY MPV 9.2 7.4 - 10.4 10/15/2011 Normal [facility] HEMATOLOGY RDW 14.0 11.5 - 14.5 10/15/2011 Normal [facility] HEMATOLOGY Hgb 13.2 12.0 - 16.0 10/15/2011 Normal [facility] HEMATOLOGY MCHC 33.9 32.0 - 36.0 10/15/2011 Normal [facility] HEMATOLOGY MCH 28.3 27.0 - 31.0 10/15/2011 Normal [facility] HEMATOLOGY MCV 83.4 81.0 - 99.0 10/15/2011 Normal [facility] HEMATOLOGY Hct 38.9 36.0 - 48.0 10/15/2011 Normal [facility] HEMATOLOGY RBC 4.67 4.20 - 5.40 10/15/2011 Normal [facility] HEMATOLOGY WBC 11.3 3.7 - 10.4 10/15/2011 HI [facility] URINALYSIS UA Mucus Few /LPF (10/15/2011 14:11:00) None Seen 10/15/2011 Normal [facility] URINALYSIS UA [place] Yeast Many /HPF *ABN* (10/15/2011 14:11:00) None Seen 10/15/2011 ABN [facility] URINALYSIS UA Sq Epi Rare /LPF (10/15/2011 14:11:00) Few 10/15/2011 Normal [facility] URINALYSIS Micro? Performed (10/15/2011 14:11:00) 10/15/2011 Normal [facility] URINALYSIS UA Bacteria Moderate /HPF (10/15/2011 14:11:00) None Seen 10/15/2011 Normal [facility] URINALYSIS UA WBC 0-2 /HPF (10/15/2011 14:11:00) None Seen 10/15/2011 Normal [facility] URINALYSIS UA RBC 51-100 /HPF *ABN* (10/15/2011 14:11:00) 0 - 2 10/15/2011 ABN [facility] URINALYSIS UA Leuk Est Negative (10/15/2011 14:11:00) Negative 10/15/2011 Normal [facility] URINALYSIS UA Nitrite Positive *ABN* (10/15/2011 14:11:00) Negative 10/15/2011 ABN [facility] URINALYSIS UA Urobilinogen 0.2 0.1 - 1.0 10/15/2011 Normal [facility] URINALYSIS UA Bili Negative *NA* (10/15/2011 14:11:00) Negative 10/15/2011 NA [facility] URINALYSIS UA Ketones Negative *NA* (10/15/2011 14:11:00) Negative 10/15/2011 NA [facility] URINALYSIS UA Glucose Negative (10/15/2011 14:11:00) Negative 10/15/2011 Normal [facility] URINALYSIS UA Protein Negative (10/15/2011 14:11:00) Negative 10/15/2011 Normal [facility] URINALYSIS UA Spec Grav >=1.030 *ABN* (10/15/2011 14:11:00) <=1.030 10/15/2011 ABN [facility] URINALYSIS UA Blood Large *ABN* (10/15/2011 14:11:00) Negative 10/15/2011 ABN [facility] URINALYSIS UA Color Yellow *NA* (10/15/2011 14:11:00) Yellow 10/15/2011 NA [facility] URINALYSIS UA pH 5.0 5.0 - 8.0 10/15/2011 Normal [facility] URINALYSIS UA Turbidity Slight Cloudy (10/15/2011 14:11:00) Clear 10/15/2011 Normal [facility] Pathology Reports No Data Provided for This Section Diagnostic Reports Report Value Date Source Chest 1view DX Clinical Indication: - PALPITATIONS Comparison: 09/21/2016 FINDINGS: Single AP view of the chest is submitted for interpretation. The lungs are clear and there are no effusions. There is no visible pneumothorax. Cardiomediastinal contours are within normal limits. No gross bony normalities are identified. IMPRESSION: 1. No radiographic evidence of acute cardiopulmonary process. SL: [id number] 07/30/2017 [facility] Preg < 14wks Single [...] ULTRASOUND: Single viable intrauterine gestation is seen. Nina-rump length of the embryo is 2.4 mm. [...] normal heart rate of 100 bpm. SL: [id number] 09/21/2016 [facility] Chest 1view DX Study: Chest 1view DX Clinical Indication: Chest pain Comparison: Chest x-ray from 07/13/2016 FINDINGS: The cardiac silhouette is normal in size. The lungs are clear and without consolidation or congestion. No pleural effusion or pneumothorax is seen. The osseous structures are unremarkable. IMPRESSION: No acute cardiopulmonary disease. SL: [id number] 09/21/2016 [facility] Preg < 14wks Single gest w [...] no embryo is seen. Uterine fibroid. SL: [id number] 09/16/2016 [facility] Brain wo contrast CT EXAM: CT BRAIN [...] Dural calcification is considered less likely. SL: [id number] 07/13/2016 [facility] 1view DX EXAM: XR CHEST 1 VIEW [...] identified. IMPRESSION: No acute cardiopulmonary abnormality. SL: [id number] 07/13/2016 [facility] Chest 2 views DX PA and lateral chest: The cardiomediastinal silhouette, pulmonary vasculature and iraida are within normal limits. The lungs and pleural spaces are clear. There are no significant osseous abnormalities. T here is no significant change compared to 07/07/2016. IMPRESSION: No acute radiographic abnormalities in the chest. [id number] 07/10/2016 [facility] 1view DX Study: Chest 1view DX 07/07/2016 4:52 PM CDT Patient Name: ROXANA HUERTA MR: [id number] : 1985; Age: 30 years y/o Female Ordering Physician: Shruti Tee Clinical Indication: Chest pain Comparison: 10 16. FINDINGS LUNGS: The lungs are clear of consolidation, pleural effusion, and pneumothorax. HEART AND MEDIASTINUM: Normal size heart. LINES: None. OSSEOUS STRUCTURES: No fracture, dislocation, or suspicious focal osseous lesion. OTHER: None. IMPRESSION: 1. No acute abnormality as above discussed. SL: [id number] 07/07/2016 [facility] Chest 2 views DX Clinical Indication: 30 [...] radiographic evidence of acute cardiopulmonary disease. SL: [id number] 06/19/2016 [facility] Brain wo contrast CT Study: Brain wo [...] scan of the brain without contrast. SL: [id number] 06/18/2016 [facility] Chest 2 views DX Patient Name: ROXANA HUERTA : 1985; Age: 30 years y/o Female MR: [id number] Study: Chest 2 views DX 06/18/2016 8:18 PM CDT Ordering Physician: Clinical Indication: Chest pain; Comparison: 04/18/2016 Two-view chest Lungs are clear. Heart size normal. No pleural effusion or pneumothorax. No osseous abnormalities. IMPRESSION: Negative. SL: CAMILLA 06/18/2016 [facility] Chest 1view DX Patient Name: ROXANA HUERTA : 1985; Age: 30 years Female MR: [id number] Study: Chest 1view DX Order Time: 04/18/2016 [...] of acute pulmonary disease. SL: CANDY 04/18/2016 [facility] Renal Stone CT EXAM: CT renal stone HISTORY: Acute right lower abdominal pain, possible renal stone COMPARISON: [place] [address] TECHNIQUE: Axial images of the abdomen and [...] small bowel obstruction. 3. Fatty liver. SL: [id number] 03/21/2016 [facility] Abdomen RUQ US Patient Name: ROXANA HUERTA : 1985; Age: 30 years Female MR: [id number] Study: Abdomen RUQ US 12/02/2015 3:26 PM [...] a distal obstructing process is recommended. SL: [id number] 12/02/2015 [facility] Pelvis Transvaginal US Patient Name: ROXANA HUERTA : 1985; Age: 30 years y/o Female MR: [id number] Study: Pelvis Transvaginal US 11/09/2015 10:53 PM [employer] Ordering Physician: Samir Leon Clinical Indication: Abdominal [...] to document for stability or resolution. SL: [id number] 11/10/2015 [facility] Abdomen/Pelvis w IV contrast CT I. CT [...] hernia. SL: 12 Maciel Jeffrey M.D. 06/11/2015 [facility] RUQ US Right upper quadrant ultrasound. Clinical [...] is negative. No free fluid in Johansen's pouch. Right kidney is normal in appearance without mass, hydronephrosis, or stone measuring 1.6 x 4.6 x 5.6 cm. The aorta and IVC are normal in the visualized portions. The pancreas is normal in the visualized portions. The main portal vein is patent, with hepatopedal flow. Impression: 1. Hepatic steatosis SL: 16 04/21/2015 [facility] Abdomen acute series w chest 1 [...] No acute cardiopulmonary disease. SL: 16 04/21/2015 [facility] Abdomen/Pelvis w IV contrast CT I. CT [...] no herniation of bowel. SL: 13 Maciel Jeffrey M.D. 03/09/2015 [facility] Pelvis Transvaginal US NAME: ROXANA HUERTA : [...] ultrasound of the pelvis. SL: 14 03/09/2015 [facility] ED Abdomen/Pelvis IV contrast only CT CT [...] fat containing umbilical hernia SL: 12 10/30/2014 [facility] Consultation Notes No Data Provided for This Section Discharge Summaries No Data Provided for This Section History and Physicals No Data Provided for This Section Vital Signs Vital Sign Value Date Comments Source Respitory Rate 16 07/31/2017 [facility] Heart Rate 72 07/31/2017 [facility] Systolic (mm Hg) 99 07/31/2017 [facility] Diastolic (mm Hg) 62 07/31/2017 [facility] Temperature Oral (F) 98.7 F 07/31/2017 [facility] Temperature Oral (F) 98.7 F 07/30/2017 [facility] Heart Rate 78 07/30/2017 [facility] Respitory Rate 16 07/30/2017 [facility] Systolic (mm Hg) 102 07/30/2017 [facility] Diastolic (mm Hg) 64 07/30/2017 [facility] Heart Rate 91 07/30/2017 [facility] Respitory Rate 16 07/30/2017 [facility] Systolic (mm Hg) 110 07/30/2017 [facility] Diastolic (mm Hg) 95 07/30/2017 [facility] Weight 90 07/30/2017 [facility] BMI Calculated 36.29 07/30/2017 [facility] Height 157.48 cm 07/30/2017 [facility] Temperature Oral (F) 98 F 07/30/2017 [facility] Weight 97.727 10/24/2016 [facility] BMI Calculated 39.41 10/24/2016 [facility] Heart Rate 86 10/24/2016 [facility] Respitory Rate 20 10/24/2016 [facility] Height 157.48 cm 10/24/2016 [facility] Temperature Oral (F) 98.0 F 10/24/2016 [facility] Systolic (mm Hg) 116 10/24/2016 [facility] Diastolic (mm Hg) 70 10/24/2016 [facility] Respitory Rate 16 09/21/2016 [facility] Temperature Oral (F) 97.8 F 09/21/2016 [facility] Heart Rate 83 09/21/2016 [facility] Systolic (mm Hg) 121 09/21/2016 [facility] Diastolic (mm Hg) 61 09/21/2016 [facility] Heart Rate 72 09/21/2016 [facility] Respitory Rate 16 09/21/2016 [facility] Temperature Oral (F) 97.4 F 09/21/2016 [facility] Weight 93.636 09/21/2016 [facility] Systolic (mm Hg) 117 09/21/2016 [facility] Diastolic (mm Hg) 69 09/21/2016 [facility] Systolic (mm Hg) 110 09/17/2016 [facility] Diastolic (mm Hg) 58 09/17/2016 [facility] Respitory Rate 16 09/17/2016 [facility] Temperature Oral (F) 98.2 F 09/17/2016 [facility] Heart Rate 72 09/17/2016 [facility] Weight 94.545 09/16/2016 [facility] BMI Calculated 38.12 09/16/2016 [facility] Height 157.48 cm 09/16/2016 [facility] Temperature Oral (F) 98.6 F 09/16/2016 [facility] Systolic (mm Hg) 107 09/16/2016 [facility] Diastolic (mm Hg) 73 09/16/2016 [facility] Respitory Rate 18 09/16/2016 [facility] Heart Rate 69 09/16/2016 [facility] Respitory Rate 18 07/13/2016 [facility] Systolic (mm Hg) 107 07/13/2016 [facility] Diastolic (mm Hg) 68 07/13/2016 [facility] Temperature Oral (F) 98 F 07/13/2016 [facility] Respitory Rate 15 07/13/2016 [facility] Systolic (mm Hg) 107 07/13/2016 [facility] Diastolic (mm Hg) 65 07/13/2016 [facility] Temperature Oral (F) 98 F 07/13/2016 [facility] Systolic (mm Hg) 110 07/13/2016 [facility] Diastolic (mm Hg) 71 07/13/2016 [facility] Respitory Rate 17 07/13/2016 [facility] Temperature Oral (F) 98 F 07/13/2016 [facility] Weight 97.727 07/13/2016 [facility] Height 162.56 cm 07/13/2016 [facility] BMI Calculated 36.98 07/13/2016 [facility] Heart Rate 75 07/13/2016 [facility] BMI Calculated 36.98 07/10/2016 [facility] Weight 97.727 07/10/2016 [facility] Height 162.56 cm 07/10/2016 [facility] Temperature Oral (F) 98.3 F 07/10/2016 [facility] Respitory Rate 18 07/10/2016 [facility] Heart Rate 74 07/10/2016 [facility] Systolic (mm Hg) 114 07/10/2016 [facility] Diastolic (mm Hg) 75 07/10/2016 [facility] Respitory Rate 14 07/08/2016 [facility] Heart Rate 77 07/08/2016 [facility] Temperature Oral (F) 97.7 F 07/08/2016 [facility] [...] 18 06/20/2016 [facility] Heart Rate 60 06/20/2016 [facility] Temperature Oral (F) 97.7 F 06/20/2016 [facility] Respitory Rate 18 06/19/2016 [facility] Temperature Oral (F) 98.0 F 06/19/2016 [facility] Heart Rate 82 06/19/2016 [facility] Systolic (mm Hg) 126 06/19/2016 [facility] Diastolic (mm Hg) 74 06/19/2016 [facility] Respitory Rate 18 06/19/2016 [facility] BMI Calculated 36.98 06/19/2016 [facility] Weight 97.727 06/19/2016 [facility] Systolic (mm Hg) 125 06/19/2016 [facility] Diastolic (mm Hg) 79 06/19/2016 [facility] Heart Rate 70 06/19/2016 [facility] Temperature Oral (F) 98.1 F 06/19/2016 [facility] [...] 06/19/2016 [facility] Diastolic (mm Hg) 81 06/19/2016 [facility] Temperature Oral (F) 98.3 F 05/25/2016 [facility] Systolic (mm Hg) 111 05/25/2016 [facility] Diastolic (mm Hg) 72 05/25/2016 [facility] Respitory Rate 18 05/25/2016 [facility] Heart Rate 66 05/25/2016 [facility] Weight 97.727 05/25/2016 [facility] Height 157.48 cm 05/25/2016 [facility] BMI Calculated 39.41 05/25/2016 [facility] Systolic (mm Hg) 123 05/25/2016 [facility] Diastolic (mm Hg) 81 05/25/2016 [facility] Heart Rate 82 05/25/2016 [facility] Respitory Rate 20 05/25/2016 [facility] Temperature Oral (F) 98.2 F 05/25/2016 [facility] Heart Rate 65 04/20/2016 [facility] Respitory Rate 16 04/20/2016 [facility] Systolic (mm Hg) 114 04/20/2016 [facility] Diastolic (mm Hg) 66 04/20/2016 [facility] Temperature Oral (F) 97.0 F 04/20/2016 [facility] Heart Rate 52 04/20/2016 [facility] Respitory Rate 18 04/20/2016 [facility] Systolic (mm Hg) 106 04/20/2016 [facility] Diastolic (mm Hg) 60 04/20/2016 [facility] Systolic (mm Hg) 115 04/20/2016 [facility] Diastolic (mm Hg) 60 04/20/2016 [facility] Heart Rate 69 04/20/2016 [facility] Respitory Rate 18 04/20/2016 [facility] Weight 100 04/20/2016 [facility] Temperature Oral (F) 97.6 F 04/20/2016 [facility] Height 157.48 cm 04/20/2016 [facility] BMI Calculated 40.32 04/20/2016 [facility] Temperature Oral (F) 98.1 F 04/19/2016 [facility] Systolic (mm Hg) 109 04/19/2016 [facility] Diastolic (mm Hg) 64 04/19/2016 [facility] Respitory Rate 18 04/19/2016 [facility] Heart Rate 74 04/19/2016 [facility] Temperature Oral (F) 98.1 F 04/19/2016 [facility] Systolic (mm Hg) 125 04/19/2016 [facility] Diastolic (mm Hg) 65 04/19/2016 [facility] Respitory Rate 18 04/19/2016 [facility] Heart Rate 63 04/19/2016 [facility] Weight 97.727 04/19/2016 [facility] Systolic (mm Hg) 153 04/19/2016 [facility] Diastolic (mm Hg) 89 04/19/2016 [facility] Heart Rate 78 04/19/2016 [facility] Respitory Rate 18 04/19/2016 [facility] Height 157.48 cm 04/19/2016 [facility] BMI Calculated 39.41 04/19/2016 [facility] Temperature Oral (F) 98.6 F 04/19/2016 [facility] Systolic (mm Hg) 113 03/22/2016 [facility] Diastolic (mm Hg) 62 03/22/2016 [facility] Respitory Rate 18 03/22/2016 [facility] Heart Rate 65 03/22/2016 [facility] Temperature Oral (F) 98.3 F 03/22/2016 [facility] Weight 97.727 03/21/2016 [facility] Height 157.48 cm 03/21/2016 [facility] Respitory Rate 17 03/21/2016 [facility] Temperature Oral (F) 98.3 F 03/21/2016 [facility] BMI Calculated 39.41 03/21/2016 [facility] Systolic (mm Hg) 103 03/21/2016 [facility] Diastolic (mm Hg) 69 03/21/2016 [facility] Heart Rate 64 03/21/2016 [facility] Systolic (mm Hg) 103 12/05/2015 [facility] Diastolic (mm Hg) 63 12/05/2015 [facility] Respitory Rate 16 12/05/2015 [facility] Heart Rate 61 12/05/2015 [facility] Temperature Oral (F) 98 F 12/05/2015 [facility] Respitory Rate 18 12/05/2015 [facility] Heart Rate 76 12/05/2015 [facility] Respitory Rate 16 12/05/2015 [facility] Systolic (mm Hg) 90 12/05/2015 [facility] Diastolic (mm Hg) 59 12/05/2015 [facility] Temperature Oral (F) 98.3 F 12/05/2015 [facility] Systolic (mm Hg) 103 12/05/2015 [facility] Diastolic (mm Hg) 64 12/05/2015 [facility] Temperature Oral (F) 97.6 F 12/05/2015 [facility] Heart Rate 66 12/05/2015 [facility] BMI Calculated 32.49 12/03/2015 [facility] Weight 94.091 [...] cm 11/10/2015 [facility] Respitory Rate 20 11/10/2015 [facility] Heart Rate 73 11/10/2015 [facility] Systolic (mm Hg) 107 11/10/2015 [facility] Diastolic (mm Hg) 62 11/10/2015 [facility] Systolic (mm Hg) 134 10/17/2015 [facility] Diastolic (mm Hg) 80 10/17/2015 [facility] Respitory Rate 18 10/17/2015 [facility] Heart Rate 80 10/17/2015 [facility] Temperature Oral (F) 98.0 F 10/17/2015 [facility] BMI Calculated 39.41 10/17/2015 [facility] Weight 97.727 10/17/2015 [facility] Height 157.48 cm 10/17/2015 [facility] Height 157.48 cm 09/21/2015 [facility] Weight 95 09/21/2015 [facility] BMI Calculated 38.31 09/21/2015 [facility] Respitory Rate 18 09/21/2015 [facility] Heart Rate 66 09/21/2015 [facility] Temperature Oral (F) 98.1 F 09/21/2015 [facility] Systolic (mm Hg) 108 09/21/2015 [facility] Diastolic (mm Hg) 67 09/21/2015 [facility] Respitory Rate 18 06/11/2015 [facility] Heart Rate 54 06/11/2015 [facility] Systolic (mm Hg) 100 06/11/2015 [facility] Diastolic (mm Hg) 60 06/11/2015 [facility] Temperature Oral (F) 98.0 F 06/11/2015 [facility] Heart Rate 66 06/11/2015 [facility] Respitory Rate 18 06/11/2015 [facility] Systolic (mm Hg) 115 06/11/2015 [facility] Diastolic (mm Hg) 57 06/11/2015 [facility] Temperature Oral (F) 98.0 F 06/11/2015 [facility] Weight 95.455 06/11/2015 [facility] Systolic (mm Hg) 117 06/11/2015 [facility] Diastolic (mm Hg) 79 06/11/2015 [facility] Heart Rate 80 06/11/2015 [facility] Respitory Rate 18 06/11/2015 [facility] Weight 97.727 05/14/2015 [facility] BMI Calculated 39.41 05/14/2015 [facility] Respitory Rate 16 05/14/2015 [facility] Heart Rate 70 05/14/2015 [facility] Systolic (mm Hg) 119 05/14/2015 [facility] Diastolic (mm Hg) 79 05/14/2015 [facility] Temperature Oral (F) 98.5 F 05/14/2015 [facility] Height 157.48 cm 05/14/2015 [facility] Respitory Rate 27 04/21/2015 [facility] Temperature Oral (F) 98.0 F 04/21/2015 [facility] Systolic (mm Hg) 104 04/21/2015 [facility] Diastolic (mm Hg) 62 04/21/2015 [facility] Respitory Rate 19 04/21/2015 [facility] BMI Calculated 45.82 04/21/2015 [facility] Weight 113.636 04/21/2015 [facility] Systolic (mm Hg) 124 04/21/2015 [facility] Diastolic (mm Hg) 75 04/21/2015 [facility] Heart Rate 65 04/21/2015 [facility] Temperature Oral (F) 98.1 F 04/21/2015 [facility] Respitory Rate 18 04/21/2015 [facility] Height 157.48 cm 04/21/2015 [facility] Heart Rate 65 04/19/2015 [facility] Temperature Oral (F) 98.3 F 04/19/2015 [facility] Respitory Rate 18 04/19/2015 [facility] Systolic (mm Hg) 135 04/19/2015 [facility] Diastolic (mm Hg) 78 04/19/2015 [facility] Respitory Rate 19 04/19/2015 [facility] Weight 97.727 04/19/2015 [facility] Temperature Oral (F) 98.4 F 04/19/2015 [facility] Height 157.48 cm 04/19/2015 [facility] Heart Rate 67 04/19/2015 [facility] Respitory Rate 18 04/19/2015 [facility] Systolic (mm Hg) 143 04/19/2015 [facility] Diastolic (mm Hg) 76 04/19/2015 [facility] BMI Calculated 39.41 04/19/2015 [facility] Respitory Rate 22 03/17/2015 [facility] Heart Rate 80 03/17/2015 [facility] Systolic (mm Hg) 122 03/17/2015 [facility] Diastolic (mm Hg) 80 03/17/2015 [facility] Height 157.48 cm 03/17/2015 [facility] BMI Calculated 32.99 03/17/2015 [facility] Temperature Oral (F) 98.6 F 03/17/2015 [facility] Weight 81.818 03/17/2015 [facility] Heart Rate 70 03/10/2015 [facility] Systolic (mm Hg) 119 03/10/2015 [facility] Diastolic (mm Hg) 79 03/10/2015 [facility] Respitory Rate 20 03/10/2015 [facility] Temperature Oral (F) 97.9 F 03/10/2015 [facility] Heart Rate 66 03/09/2015 [facility] Respitory Rate 18 03/09/2015 [facility] Systolic (mm Hg) 109 03/09/2015 [facility] Diastolic (mm Hg) 69 03/09/2015 [facility] BMI Calculated 40.32 03/09/2015 [facility] Weight 100 03/09/2015 [facility] Height 157.48 cm 03/09/2015 [facility] Heart Rate 64 03/09/2015 [facility] Respitory Rate 18 03/09/2015 [facility] Systolic (mm Hg) 121 03/09/2015 [facility] Diastolic (mm Hg) 79 03/09/2015 [facility] Temperature Oral (F) 98.1 F 03/09/2015 [facility] Systolic (mm Hg) 106 11/04/2014 [facility] Diastolic (mm Hg) 57 11/04/2014 [facility] Respitory Rate 18 11/04/2014 [facility] Heart Rate 59 11/04/2014 [facility] Temperature Oral (F) 98.5 F 11/04/2014 [facility] Respitory Rate 18 11/04/2014 [facility] Heart Rate 62 11/04/2014 [facility] Temperature Oral (F) 98.4 F 11/04/2014 [facility] Systolic (mm Hg) 100 11/04/2014 [facility] Diastolic (mm Hg) 61 11/04/2014 [facility] Temperature Oral (F) 98.3 F 11/04/2014 [facility] [...] 63 10/30/2014 [facility] Respitory Rate 18 10/30/2014 [facility] Heart Rate 66 10/30/2014 [facility] Systolic (mm Hg) 111 10/30/2014 [facility] Diastolic (mm Hg) 76 10/30/2014 [facility] Heart Rate 84 10/30/2014 [facility] Respitory Rate 18 10/30/2014 [facility] Temperature Oral (F) 99.0 F 10/30/2014 [facility] Height 160.02 cm 10/30/2014 [facility] BMI Calculated 38.17 10/30/2014 [facility] Weight 97.727 10/30/2014 [facility] Respitory Rate 18 06/23/2014 [facility] Heart Rate 63 06/23/2014 [facility] Temperature Oral (F) 98.2 F [...] 06/10/2014 [facility] Systolic (mm Hg) 124 06/10/2014 [facility] Temperature Oral (F) 98.1 F 06/10/2014 [facility] Respitory Rate 20 06/10/2014 [facility] Height 157.48 cm 07/09/2012 [facility] Weight 98.636 07/09/2012 [facility] Weight 98.182 04/22/2012 [facility] Height 160.02 cm 04/22/2012 [facility] Height 160.02 cm 04/16/2012 [facility] Weight 98.182 04/16/2012 [facility] Weight 95.455 11/11/2011 [facility] Height 160.02 cm 11/11/2011 [facility] Weight 97.727 11/09/2011 [facility] Height 160.02 cm 11/09/2011 [facility] Diastolic (mm Hg) 65 10/16/2011 [facility] Systolic (mm Hg) 110 10/16/2011 [facility] Heart Rate 71 10/16/2011 [facility] Respitory Rate 18 10/16/2011 [facility] Temperature Oral (F) 98.3 F 10/16/2011 [facility] Temperature Oral (F) 98.6 F 10/15/2011 [facility] Respitory Rate 18 10/15/2011 [facility] Heart Rate 68 10/15/2011 [facility] Diastolic (mm Hg) 60 10/15/2011 [facility] Systolic (mm Hg) 114 10/15/2011 [facility] Weight 90.909 10/15/2011 [facility] Height 157.48 cm 10/15/2011 [facility] Heart Rate 65 10/15/2011 [facility] Diastolic (mm Hg) 75 10/15/2011 [facility] Temperature Oral (F) 98.1 F 10/15/2011 [facility] Respitory Rate 18 10/15/2011 [facility] Systolic (mm Hg) 112 10/15/2011 [facility] Temperature Oral (F) 98.4 F 08/02/2011 [facility] Heart Rate 68.0 08/02/2011 [facility] Diastolic (mm Hg) 70.0 08/02/2011 [facility] Respitory Rate 18.0 08/02/2011 [facility] Systolic (mm Hg) 118.0 08/02/2011 [facility] Weight 94.091 08/02/2011 [facility] Height 160.02 cm 08/02/2011 [facility] Encounters Location Location Details Encounter Type Encounter Number Reason For Visit Attending Provider ADM Date DC Date Status Source [facility] Emergency [id number] ARTEMIO CAROLINA 08/02/2011 08/02/2011 Discharged [facility] Emergency [id number] NADIM RESTORATION 10/15/2011 10/15/2011 Discharged [facility] [id number] HEDY HORAN 11/09/2011 11/09/2011 [facility] [id number] JUSTINA COHEN 11/10/2011 11/10/2011 [facility] [id number] NADIM RESTORATION 04/16/2012 04/16/2012 [facility] [id number] DREW FUNG 04/22/2012 04/22/2012 Discharged [facility] [id number] ALFONSO SAAVEDRA 07/08/2012 07/08/2012 Discharged [facility] [id number] Alfonso Zaragoza 06/10/2014 06/10/2014 [facility] [id number] Dat Brittni 06/23/2014 06/23/2014 [facility] [id number] Nadim Yazdanism 10/30/2014 10/30/2014 [facility] [id number] Nadim Yazdanism 11/04/2014 11/04/2014 [facility] [id number] Artemio Gonzales 03/09/2015 03/10/2015 [facility] [id number] Michelle Fadowole 03/17/2015 03/17/2015 [facility] [id number] Michelle Fadowole 04/19/2015 04/19/2015 [facility] [id number] Laurel Sim 04/21/2015 04/21/2015 [facility] [id number] Axel Ruffin 05/14/2015 05/14/2015 [facility] [id number] Daly Stack 06/11/2015 06/11/2015 [facility] [id number] Tanvir Carrillo 09/21/2015 09/21/2015 [facility] [id number] Sunil Eason 10/17/2015 10/17/2015 [facility] [id number] Tanvir Carrillo 11/10/2015 11/10/2015 [facility] Inpatient [id number] Willie Lopez 12/02/2015 12/05/2015 [facility] lab results [id number] 12/09/2015 12/09/2015 [facility] [id number] Nadim Yazdanism 03/21/2016 03/22/2016 [facility] Emergency [id number] Cat Bailey 04/19/2016 04/19/2016 [facility] Emergency [id number] Priti Etelvina 04/20/2016 04/20/2016 [facility] Emergency [id number] Nadim Yazdanism 05/25/2016 05/25/2016 [facility] Emergency [id number] Ángela Akujobi 06/19/2016 06/19/2016 [facility] Emergency [id number] Demetrio Anyi 06/19/2016 06/20/2016 [facility] Emergency [id number] Ángela Akujobi 07/07/2016 07/08/2016 [facility] Emergency [id number] Kate Beal 07/10/2016 07/10/2016 [facility] Emergency [id number] Priti Etelvina 07/13/2016 07/13/2016 [facility] Emergency [id number] Michellejose Lorenzo 09/16/2016 09/17/2016 [facility] Emergency [id number] Nemo Santiago 09/21/2016 09/21/[address] [facility] Emergency [id number] Francisco De Leon 10/24/2016 10/24/2016 [facility] Observation [id number] Yolanda Plata 07/30/2017 07/31/2017 [facility] TH [id number] OVARIAN CYST NON PHYSICIAN [facility] Outpatient [id number] OVARIAN CYST ARMINDA HIGH [facility] Procedures Procedure Code Date Perfomer Comments Source Cholecystectomy [id number] [facility] D&C - Dilatation and curettage [id number] [facility] Tubal ligation [id number] [facility] Assessment and Plan Assessment and Plan Date Source Extracted from:Title: Clinical Document Author: Pantera Carreon MD Date: [...] non-focal exam. MS: nl Recent Labs/Radiology reviewed Vitals Tmp(F) Pulse BP RR SpO2 FIO2 12/04 11:40 98 61 103/63 16 --- --- 12/04 08:42 ---- --- ----- 18 98 21% 12/04 07:24 98.3 76 90/59 16 --- --- 12/04 04:01 97.6 66 103/64 18 99 --- 12/04 00:00 97.7 63 106/62 18 100 --- 24 Hr Tmax: 98.3F (36.83c) at 12/04 07:24 Vital Signs are the last 5 in the past 48 hours. Input/Output Record In Out Bal 12/04 24hr Tot [phone] 12/03 24hr Tot [id number] Scheduled Meds (4):albuterol-ipratropium [...] 1,000 mL 24hr Labs 12/04 1110 Glucose POC 141 H 12/04 0634 Glucose POC 137 H 12/04 0530 Sodium Lvl 142 Potassium Lvl 3.8 Chloride Lvl 109 CO2 27 AGAP 9.8 L Glucose Lvl 155 H Creatinine Lvl 0.69 BUN 11 B/C Ratio 16 Total Protein 6.0 L Albumin Lvl 2.9 L Globulin 3.1 A/G Ratio 0.9 Calcium Lvl 7.7 L ALT 26 AST 11 Alk Phos 57 Bili Total 0.3 eGFR 116 WBC 11.4 H RBC 4.03 L Hgb 10.3 L Hct 32.3 L MCV 80.2 MCH 25.5 L MCHC 31.8 L RDW 14.8 H Platelet 285 MPV 8.9 Segs 60.0 Monocytes 6.5 Lymphocytes 31.4 Eosinophils 1.6 Basophils 0.5 Segs-Bands # 6.9 Lymphocytes # 3.6 Monocytes # 0.7 Eosinophils # 0.2 Basophils # 0.1 12/03 2053 Glucose POC 171 H 12/03 1553 Glucose POC 148 H 12/03 0656 Iron 49 % Satur Fe 13 TIBC 382 UIBC 333 Vitamin B12 Lvl 443 12/05/2015 [facility] Plan of Care No Data Provided for This Section Social History Social History Date Source Social History TypeResponse Alcohol Current, Type Beer, Wine, Liquor. Frequency: 1-2 times per month. Smoking Status Former smoker; Previous treatment: None; Exposure to Tobacco Smoke None; Cigarette Smoking Last 365 Days No; Reg Smoking Cessation Counseling No 12/03/2015 [facility] Social History TypeResponse Alcohol Current, Type Beer, Wine, Liquor. Frequency: 1-2 times per month. Smoking Status Former smoker; Previous treatment: None; Exposure to Tobacco Smoke None; Cigarette Smoking Last 365 Days No; Reg Smoking Cessation Counseling No 12/03/2015 [facility] Social History TypeResponse Alcohol Current, Type Beer, Wine, Liquor. Frequency: 1-2 times per month. 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 Status , Is cambodian your primary language? Yes Sep 29, 2015 [...] 1 drink a month Sep 29, 2015 09/29/2015 [facility] Family History No Data Provided for This Section Advance Directives No Data Provided for This Section Functional Status No Data Provided for This Section
== END 2019-05-16 16:58 | disposition left against medical advice (07) ==
LOC: ER 15:48
DX: M79.675 Pain in left toe(s) (principal)

== ENCOUNTER 2019-12-13 19:36 | Emergency (ER) | payer SELFPAY ==
[~2019-12-13] VITALS: Ht 157.5 cm; Wt 89.8 kg
[2019-12-13 22:21] LABS: INFLUENZAE A&B ANTIGEN (RAPID) NEGATIVE (NEGATIVE)
[2019-12-13 22:22] LABS: STREPTOCOCCUS GRP A ANTIGEN NEGATIVE (NEGATIVE)
--- NOTE | 2019-12-13 23:19 | Diagnostic Imaging Report ---
EXAMINATION: CHEST 2 VIEWS INDICATION: Shortness of breath, cough ^cough ^[id number] ^2250 ^Y COMPARISON: Chest x-ray 09/05/2019 FINDINGS: PA and lateral views TUBES and LINES: None. LUNGS: Lungs are well inflated. There is no evidence of pneumonia or pulmonary edema. PLEURA: No pleural effusion or pneumothorax. HEART AND MEDIASTINUM: The cardiomediastinal silhouette is unremarkable.. BONES AND SOFT TISSUES: No focal osseous lesions. Soft tissues are unremarkable. UPPER ABDOMEN: Cholecystectomy clips in the right upper quadrant. IMPRESSION: No acute thoracic abnormality. Signed by: Dr. oRnny Salmeron MD on 12/13/2019 11:16 PM
[2019-12-14 00:05] VITALS: BP 124/74
== END 2019-12-14 00:15 | disposition home or self-care (01) ==
LOC: ER 19:36
DX: R05 Cough (principal); J30.2 Other seasonal allergic rhinitis; E11.9 Type 2 diabetes mellitus without complications; E66.9 Obesity, unspecified
CPT/HCPCS: 71046; 83518; 87070; 87400; 99283

== ENCOUNTER 2019-12-15 12:37 | Emergency (ER) | payer SELFPAY ==
[~2019-12-15] VITALS: Ht 160 cm; Wt 90.7 kg
== END 2019-12-15 13:15 | disposition home or self-care (01) ==
LOC: ER 12:37
DX: J45.30 Mild persistent asthma, uncomplicated (principal)
CPT/HCPCS: 99283

== ENCOUNTER 2020-01-05 18:19 | Emergency (ER) | payer MEDICARE ==
[~2020-01-05] VITALS: Ht 160 cm; Wt 90.7 kg
[2020-01-05] MEDS ORDERED: DIFLUCAN150 MG PO (19:14)
== END 2020-01-05 19:30 | disposition home or self-care (01) ==
LOC: FSED 18:19
DX: R30.0 Dysuria (principal); N76.0 Acute vaginitis; B37.3 Candidiasis of vulva and vagina; E11.65 Type 2 diabetes mellitus with hyperglycemia
CPT/HCPCS: 36415; 82948; 99283

== ENCOUNTER 2020-01-23 21:13 | Emergency (ER) | payer SELFPAY ==
[~2020-01-23] VITALS: Ht 160 cm; Wt 90.7 kg
[~2020-01-23 21:13] MED LIST changes: +DIFLUCAN150 MG PO
--- OUTSIDE RECORDS SUMMARY | 2020-01-23 21:18 | XMS REPORT | Continuity of Care Document ---
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 Palpitations 07/30/2017 08/02/2017 [facility] ABD PAIN-11 WEEKS Act jesus 10/24/2016 [facility] Discharge Diagnosis: Acute UTI 09/21/2016 09/24/2016 [facility] Discharge Diagnosis: Abdominal pain affecting pregnanc y 09/21/2016 09/24/2016 [facility] ABDOMINAL PAIN Active 09/21/2016 [facility] Discharge Diagnosis: First trimester bleeding 09/16/2016 09/19/2016 [facility] Discharge Diagnosis: Threatened miscarriage 09/16/2016 09/19/2016 [facility] OB 6 WKS/VAG BLEEDING Active 09/16/2016 [facility] Discharge Diagnosis: Hyperglycemia 07/13/2016 07/16/2016 [facility] Discharge Diagnosis: Atypical chest pain 07/13/2016 07/16/2016 [facility] Discharge Diagnosis: Acute lower UTI (ur inary tract infection) 07/13/2016 07/16/2016 [facility] Discharge Diagnosis: Dizziness 07/13/2016 07/16/2016 [facility] DIZZINESS Active 07/12/2016 [facility] Discharge Diagnosis: Chest pain 07/07/2016 07/10/2016 [facility] Discharge Diagnosis: Near syncope 07/07/2016 07/10/2016 [facility] Discharge Diagnosis: Anemia 07/07/2016 07/10/2016 [facility] Discharge Diagnosis: Acute hypokalemia 07/07/2016 07/10/2016 [facility] DIZZY/CHEST PAIN Active 07/07/2016 [facility] Discharge Diagnosis: Shortness of breath 06/19/2016 06/22/2016 [facility] ASTMAH Active 06/19/2016 [facility] Discharge Diagnosis: Anxiety 06/18/2016 06/21/2016 [facility] Discharge Diagnosis: Asthma 06/18/2016 06/21/2016 [facility] SHORTNESS OF BREATH Active 06/18/2016 [facility] Discharge Diagnosis: Urinary tract infec tion, site not specified 05/25/2016 05/28/2016 [facility] Discharge Diagnosis: UTI (urinary tract infection) 04/20/2016 04/23/2016 [facility] Discharge Diagnosis: Heat exhaustion 04/20/2016 04/23/2016 [facility] Discharge Diagnosis: Dehydration 04/18/2016 04/22/2016 [facility] Discharge Diagnosis: Heat exhaustion, un specified, initial encounter 04/18/2016 04/22/2016 [facility] HEAT EXHAUSTION Active 04/18/2016 [facility] ABD PAIN Active 03/21/2016 [facility] INTRACTABLE ABDOMINAL PAIN, GBW THICKENI Active 12/02/2015 [facility] STOMACH PAIN Active 12/02/2015 [facility] Discharge Diagnosis: Lower abdominal pain, unspecified 11/10/2015 11/13/2015 [facility] EXPOSURE Active 10/16/2015 [facility] PELVIC PAIN Active 10/06/2015 [facility] SOB Active 0 09/21/2015 [facility] Discharge Diagnosis: Acute lower UTI 06/11/2015 06/14/2015 [facility] Discharge Diagnosis: Pharyngitis, acute 05/14/2015 05/17/2015 [facility] FEVER Active 05/14/2015 [facility] Discharge Diagnosis: Abdominal pain 04/21/2015 04/24/2015 [facility] Discharge Diagnosis: Bacterial vaginosis 04/19/2015 04/22/2015 [facility] Discharge Diagnosis: Urinary tract infection 04/19/2015 04/22/2015 [facility] Discharge Diagnosis: Pelvic pain in female 04/19/2015 04/22/2015 [facility] SYMPTOMS/ECTOPIC PREG Active 04/18/2015 [facility] SYNCOPE Active 03/16/2015 [facility] Discharge Diagnosis: Acute pelvic pain, female 03/09/2015 03/13/2015 [facility] Discharge Diagnosis: Acute pelvic inflammatory disease 03/09/2015 03/13/2015 [facility] Discharge Diagnosis: Dizziness 03/09/2015 03/13/2015 [facility] Discharge Diagnosis: Acute back pain 11/04/2014 11/06/2014 [facility] Discharge Diagnosis: Nausea 11/04/2014 11/06/2014 [facility] Discharge Diagnosis: UTI (lower urinary tract infection) 10/30/2014 11/01/2014 [facility] Discharge Diagnosis: Diarrhea 10/30/2014 11/01/2014 [facility] DIARRHEA Active 10/30/2014 [facility] Discharge Diagnosis: Near syncope 06/23/2014 06/26/2014 [facility] Discharge Diagnosis: Acute lower UTI 06/23/2014 06/26/2014 [facility] Discharge Diagnosis: Acute otitis externa 06/23/2014 06/26/2014 [facility] WEAKNESS/CHEST PAIN Active 06/23/2014 [facility] Discharge Diagnosis: Asthma exacerbation 06/10/2014 06/13/2014 [facility] Discharge Diagnosis: Upper respiratory infection 06/10/2014 06/13/2014 [facility] DIFFICULTY BREATHING Active 06/10/2014 [facility] ABD PAIN/ LOWER BACK PAIN Acti ve 07/08/2012 [facility] RIGHT SIDEPAIN Active 04/22/2012 [facility] ABD PAIN-LOWER Active 04/16/2012 [facility] OVARIAN CYST Active 04/15/2012 [facility] ADBOMINAL PAIN Active 10/15/2011 [facility] TROUBLE BREATHING Active 08/02/2011 [facility] Asthma (disorder) Active Problem 08/02/2017 [facility] Bronchitis (disorder) Resolved Problem 08/02/2017 [facility] Diabetes mellitus (disorder) R esolved Problem [facility] Diverticular disease (disorder) Resolved Problem [facility] Ectopic (disorder) R esolved Problem [facility] Depressive disorder (disorder) Resolved Problem [facility] Obesity Active Problem 12/10/2015 [facility] Asthma Active Problem 12/10/2015 [facility] Type 2 diabetes mellitus without complications Active Problem 12/10/2015 [facility] Fatty liver Active Problem 12/10/2015 [facility] GENERALIZED ABDOMINAL PAIN Act jesus [facility] Medications Medication Details Route Status Patient Instructions Ordering Provider Order Date Source ferrous sulfate Notes: Give wi th food. "Do Not Crush" No Longer Active 07/31/2017 [facility] Aspirin 325 MG Enteric Coated Tablet Notes: (Do Not Crush) Do not crush or chew. No Longer Active 07/31/2017 [facility] Metformin Notes: (Same as: Glu cophage) Take with meal No Longer Active 07/31/2017 [facility] Saline Flush 0.9% Notes: (Same as: BD Posiflush) Inactive 07/31/2017 [facility] Alprazolam 0.25 MG Oral Tablet [Xanax] Notes: With food or milk (Same as: Xanax) Inactive 07/30/2017 [facility] Insulin Lispro Notes: Roll in palms of hands gently; Do not shake `vigorously. (Same as: Humalog ) "Single Patient Use Only " WASTE: F/P - Black; E - Municipal Trash Bin Stable for 28 days at room temperature. Expires in days from Date Inactive 07/30/2017 [facility] Glucagon 1 mg, Route: IM, Drug form: PDR/INJ, PRN, Dosing Weight 90, kg, PRN Blood Glucose Results, Start date: 07/30/17 12:09:00 [employer], Duration: 30 day, Stop date: 08/29/17 12:08:00 [employer] Inactive 07/30/2017 [facility] Dextrose 50% Syringe 25 gm, 50 mL, Route: IVP, Drug Form: INJ, Dosing Weight 90, kg, PRN, PRN Blood Glucose Results, Start date: 07/30/17 12:09:00 [employer], Duration: 30 day, Stop date: 08/29/17 12:08:00 [employer]PER Inactive 07/30/2017 [facility] Saline Flush 0.9% Notes: (Same as: BD Posiflush) Inactive 07/30/2017 [facility] Morphine Notes: (Same as:MORPh ine Sulfate) Inactive 07/30/2017 [facility] Nitroglycerin Notes: (Same as: Nitroquick, Nitrostat) "Do Not Crush" Sublingual tablet Inactive 07/30/2017 [facility] Ondansetron Notes: (Same as: Stephen shearer) MEDICATION WASTE Product Size: 4 mg Product Wasted: _0__ mg Inactive 07/30/2017 [facility] BD Normal Saline Flush Notes: (Same as: BD Posiflush) Inactive 07/30/2017 [facility] Saline Flush 0.9% Notes: (Same as: BD Posiflush) Inactive 07/30/2017 [facility] Sodium Chloride 0.9% (Bolus) IV 1,000 mL, 1000 ml/hr, Infuse Over: 1 hr, Route: IV, 1,000, Drug form: INJ, ONCE, Priority: STAT, Dosing Weight 90 kg, Start date: 07/30/17 9:11:00 [employer] HELPER, Stop date: 07/30/17 9:11:00 [employer] HELPER Inactive 07/30/2017 [facility] Saline Flush 0.9% Notes: (Same as: BD Posiflush) Inactive 10/24/2016 [facility] Tylenol Notes: Do not exceed 4 gm/day. (Same as: Tylenol) Inactive 09/21/2016 [facility] Ceftriaxone Notes: (Same As: Zachary stephenson). Use with 100 mL NS and infuse over 30 min MEDICATION WASTE Product Size: 1000 mg Product Wasted: ___ mg Inactive 09/21/2016 [facility] Albuterol 0.833 MG/ML / Ipratropium Brom dimple 0.167 MG/ML Inhalant Solution Notes: (Same as: Duoneb) Inactive 09/21/2016 [facility] Sodium Chloride 0.154 MEQ/ML Injectable Solution 1,000 mL, 1,000 ml/hr, Infuse Over: 1 hr, Route: IV, 1,000, Drug form: INJ, ONCE, Priority: STAT, Dosing Weight 93.636 kg, Start date: 09/21/16 12:43:00 [employer], Duration: 1 doses or times, Stop date: 09/21/16 12:43:00 [employer] Inactive 09/21/2016 [facility] Saline Flush 0.9% Notes: (Same as: BD Posiflush) Inactive 09/21/2016 [facility] Cephalexin 500 MG Oral Capsule [Keflex] 500 mg = 1 cap, PO, BID, X 7 day, # 14 cap, 0 Refill(s) Active 09/16/2016 [facility] Sodium Chloride 0.154 MEQ/ML Injectable Solution 1,000 mL, Infuse Over: 1 hr, Route: IV, ONCE, Priority: STAT, Dosing Weight 94.545 kg, Start date: 09/16/16 15:41:00 [employer], Duration: 1 doses or times, Stop date: 09/16/16 15:41:00 [employer]PER Inactive 09/16/2016 [facility] Nitrofurantoin 100 MG Oral Capsule [Macrobid] 100 mg = 1 cap, PO, BID, X 3 day, # 6 cap, 0 Refill(s) Active 07/13/2016 [facility] Ativan 0.5 mg, Route: IVP, Brice g form: INJ, ONCE, Dosing Weight 97.727, kg, Priority: STAT, Start date: 07/13/16 1:39:00 CDT, Stop date: 07/13/16 1:39:00 CDT Inactive 07/13/2016 [facility] Sodium Chloride 0.154 MEQ/ML Injectable Solution 1,000 mL, 2,000 ml/hr, Infuse Over: 30 minutes, Route: IV, ONCE, Priority: STAT, Dosing Weight 97.727 kg, Start date: 07/13/16 1:39:00 CDT, Duration: 1 doses or times, Stop date: 07/13/16 1:39:00 CDT Inactive 07/13/2016 [facility] Saline Flush 0.9% Notes: (Same as: BD Posiflush) No Longer Active 07/13/2016 [facility] ferrous sulfate 325 mg oral enteric coated tablet 325 mg = 1 tab, PO, TID, Start with 1 tab daily x 3 days, advance as tolerate, use stool softners and laxatives as needed for constipation, # 90 tab, 3 Refill(s) Active 07/07/2016 [facility] Sodium Chloride 0.154 MEQ/ML Injectable Solution 500 mL, 500 ml/hr, Infuse Over: 1 hr, Route: IV, ONCE, Priority: STAT, Dosing Weight 97.727 kg, Start date: 07/07/16 17:55:00 CDT, Duration: 1 doses or times, Stop date: 07/07/16 17:55:00 CDT Inactive 07/07/2016 [facility] potassium chloride 40 mEq, Rou te: PO, Drug form: ERTAB, ONCE, Dosing Weight 97.727, kg, Priority: STAT, Start date: 07/07/16 17:47:00 CDT, Stop date: 07/07/16 17:47:00 CDT Inactive 07/07/2016 [facility] Saline Flush 0.9% Notes: (Same as: BD Posiflush) Inactive 07/07/2016 [facility] Albuterol 0.833 MG/ML / Ipratropium Brom dimple 0.167 MG/ML Inhalant Solution Notes: (Same as: Duoneb) Inactive 06/20/2016 [facility] Albuterol 0.833 MG/ML / Ipratropium Brom dimple 0.167 MG/ML Inhalant Solution [DuoNeb] Notes: (Same as: Duoneb) Inactive 06/19/2016 [facility] Albuterol 0.833 MG/ML / Ipratropium Brom dimple 0.167 MG/ML Inhalant Solution Notes: (Same as: Duoneb) Inactive 06/19/2016 [facility] Saline Flush 0.9% Notes: (Same as: BD Posiflush) No Longer Active 06/19/2016 [facility] Nitrofurantoin 100 MG Oral Capsule [Macrobid] 100 mg = 1 cap, PO, BID, X 10 day, # 20 cap, 0 Refill(s) Active 05/25/2016 [facility] Zofran 4 mg, Route: IVP, Drug form: INJ, ONCE, Dosing Weight 97.727, kg, Priority: STAT, Start date: 05/25/16 8:36:00 CDT, Stop date: 05/25/16 8:36:00 CDT Inactive 05/25/2016 [facility] Sodium Chloride 0.154 MEQ/ML Injectable Solution 1,000 mL, 1,000 ml/hr, Infuse Over: 1 hr, Route: IV, ONCE, Priority: STAT, Dosing Weight 97.727 kg, Start date: 05/25/16 8:07:00 CDT, Duration: 1 doses or times, Stop date: 05/25/16 8:07:00 CDT Inactive 05/25/2016 [facility] Cephalexin 500 MG Oral Capsule [Keflex] 500 mg = 1 cap, PO, BID, X 7 day, # 14 cap, 0 Refill(s) Active 04/20/2016 [facility] Sodium Chloride 0.154 MEQ/ML Injectable Solution 1,000 mL, 2,000 ml/hr, Infuse Over: 30 minutes, Route: IV, ONCE, Priority: STAT, Dosing Weight 100 kg, Start date: 04/20/16 3:26:00 CDT, Duration: 1 doses or times, Stop date: 04/20/16 3:26:00 CDT Inactive 04/20/2016 [facility] Zofran 4 mg, Route: IVP, Drug form: INJ, ONCE, Dosing Weight 100, kg, Priority: STAT, Start date: 04/20/16 2:43:00 CDT, Stop date: 04/20/16 2:43:00 CDT Inactive 04/20/2016 [facility] Sodium Chloride 0.154 MEQ/ML Injectable Solution 1,000 mL, 2,000 ml/hr, Infuse Over: 30 minutes, Route: IV, ONCE, Priority: STAT, Dosing Weight 100 kg, Start date: 04/20/16 2:26:00 CDT, Duration: 1 doses or times, Stop date: 04/20/16 2:26:00 CDT Inactive 04/20/2016 [facility] Ondansetron Notes: (Same as: Stephen shearer) MEDICATION WASTE Product Size: 4 mg Product Wasted: __0_ mg Inactive 04/19/2016 [facility] Saline Flush 0.9% Notes: (Same as: BD Posiflush) No Longer Active 04/19/2016 [facility] Sodium Chloride 0.154 MEQ/ML Injectable Solution 1,000 mL, 1000 ml/hr, Infuse Over: 1 hr, Route: IV, 1,000, Drug form: INJ, ONCE, Priority: STAT, Dosing Weight 97.727 kg, Start date: 04/18/16 19:46:00 CDT, Duration: 1 doses or times, Stop date: 04/18/16 19:46:00 CDT Inactive 04/19/2016 [facility] cephalexin 500 mg oral tablet 500 mg = 1 tab, PO, TID, X 14 day, # 42 tab, 0 Refill(s) Active 03/22/2016 [facility] Ondansetron 4 MG Disintegrating Tablet [Zofran] 4 mg = 1 tab, PO, Q8H, PRN Nausea and Vomiting, Dissolve tab under tongue, X 5 day, # 15 tab, 0 Refill(s) Active 03/22/2016 [facility] Tylenol Notes: Do not exceed 4 gm/day. (Same as: Tylenol) Inactive 03/21/2016 [facility] Rocephin Notes: (Same As: Amari ferris). Use with 100 mL NS and infuse over 30 min MEDICATION WASTE Product Size: 1000 mg Product Wasted: _0_ mg Inactive 03/21/2016 [facility] Saline Flush 0.9% Notes: (Same as: BD Posiflush) Inactive 03/21/2016 [facility] Sodium Chloride 0.154 MEQ/ML Injectable Solution 1,000 mL, 2,000 ml/hr, Infuse Over: 30 minutes, Route: IV, 1,000, Drug form: INJ, ONCE, Priority: STAT, Dosing Weight 94.091 kg, Start date: 03/21/16 15:17:00 CDT, Duration: 1 doses or times, Stop date: 03/21/16 15:17:00 CDT Inactive 03/21/2016 [facility] Protonix Notes: Tablet should not be chewed or crushed. (Same as: Protonix) Inactive 12/05/2015 [facility] Acetaminophen 300 MG / Codeine Phosphate 60 MG Oral Tablet [Tylenol with Codeine #4] 1 tab, PO, Q6H, PRN pain, X 7 day, # 28 tab, 0 Refill(s) Active 12/04/2015 [facility] Metformin hydrochloride 500 MG Oral Tablet Notes: (Same as: Glucophage) Take with meal No Longer Active 12/04/2015 [facility] Albuterol 0.833 MG/ML / Ipratropium Brom dimple 0.167 MG/ML Inhalant Solution Notes: (Same as: Duoneb) No Longer Active 12/04/2015 [facility] Zofran Notes: (Same as: Zofran ) MEDICATION WASTE Product Size: 4 mg Product Wasted: ___ mg No Longer Active 12/04/2015 [facility] Zosyn Notes: (Same as: Zosyn) Dosing based on Piperacillin component MEDICATION WASTE Product Size: 3375 mg Product Wasted: ___ mg No Longer Active 12/04/2015 [facility] Saline Flush 0.9% Notes: (Same as: BD Posiflush) No Longer Active 12/04/2015 [facility] Sodium Chloride 0.154 MEQ/ML Injectable Solution 1,000 mL, Rate: 125 ml/hr, Infuse over: 8 hr, Route: IV, Dosing Weight 94.091 kg, Total Volume: 1,000, Start date: 12/03/15 23:53:00, Duration: 30 day, Stop date: 01/02/16 23:52:00 No Longer Active 12/04/2015 [facility] Morphine Notes: (Same as:MORPh ine Sulfate) No Longer Active 12/04/2015 [facility] Ondansetron Notes: (Same as: Stephen shearer) MEDICATION WASTE Product Size: 4 mg Product Wasted: ___ mg No Longer Active 12/04/2015 [facility] Diphenhydramine Notes: (Same a s: Benadryl) Inactive 12/04/2015 [facility] Ondansetron Notes: (Same as: Stephen shearer) MEDICATION WASTE Product Size: 4 mg Product Wasted: ___ mg Inactive 12/04/2015 [facility] Promethazine 6.25 mg, Route: I VPB, ONCE, Dosing Weight 94.091, kg, PRN Nausea & Vomiting, Start date: 12/03/15 22:06:00 Inactive 12/04/2015 [facility] Oxycodone Notes: (Same as: Daphne icodone) Inactive 12/04/2015 [facility] Hydromorphone 0.5 mg, 0.5 mL, Route: IVP, Drug form: INJ, Q5Min, Dosing Weight 94.091, kg, PRN Pain Score 7-10, Start date: 12/03/15 22:06:00, Duration: 4 doses or times, Stop date: Limited # of times Inactive 12/04/2015 [facility] Fentanyl Notes: (Same as: Subl imaze) Preservative free. Inactive 12/04/2015 [facility] Meperidine Notes: (Same As: De merol) Inactive 12/04/2015 [facility] Flumazenil Notes: (Same as: Ro mazicon) Inactive 12/04/2015 [facility] Naloxone Notes: Same as Narcan Inactive 12/04/2015 [facility] Albuterol 0.83 MG/ML Inhalant Solution Notes: SEE RT DOCUMENTATION (Same as: Proventil) Inactive 12/04/2015 [facility] Hydromorphone 1 mg, 1 mL, Rout e: IVP, Drug form: INJ, Q3H, Dosing Weight 94.091, kg, PRN Pain Score 4-6, Start date: 12/03/15 22:03:00, Duration: 30 day, Stop date: 01/02/16 22:02:00 No Longer Active 12/04/2015 [facility] Morphine Notes: (Same as:MORPh ine Sulfate) No Longer Active 12/04/2015 [facility] acetaminophen-codeine #3 Notes : Do not exceed 4gm/day of acetaminophen. (Same as: Tylenol with Codeine # 3) No Longer Active 12/04/2015 [facility] Ondansetron Notes: (Same as: Stephen shearer) MEDICATION WASTE Product Size: 4 mg Product Wasted: ___ mg No Longer Active 12/04/2015 [facility] Calcium Chloride 0.0014 MEQ/ML / Potassi um Chloride 0.004 MEQ/ML / Sodium Chloride 0.103 MEQ/ML / Sodium Lactate 0.028 MEQ/ML Injectable Solution 1,000 mL, Rate: 75 ml/hr, Infuse over: 1 3.3 hr, Route: IV, Dosing Weight 94.091 kg, Total Volume: 1,000, Start date: 12/03/15 22:03:00, Duration: 30 day, Stop date: 01/02/16 22:02:00 No Longer Active 12/04/2015 [facility] dexamethasone (ANES) Route: IV , Drug form: INJ, ONCE, Stop date: 12/03/15 21:53:00 Inactive 12/04/2015 [facility] hydromorphone (ANES) Route: IV , Drug form: INJ, ONCE, Stop date: 12/03/15 21:53:00 Inactive 12/04/2015 [facility] neostigmine (ANES) Route: IV, Drug form: INJ, ONCE, Stop date: 12/03/15 21:53:00 Inactive 12/04/2015 [facility] ceFAZolin (ANES) Route: IV, ug form: INJ, ONCE, Stop date: 12/03/15 21:53:00 Inactive 12/04/2015 [facility] rocuronium (ANES) Route: IV, D rug form: INJ, ONCE, Stop date: 12/03/15 21:53:00 Inactive 12/04/2015 [facility] acetaminophen (ANES) (ANES) Ro chilkoot: IV, Drug form: INJ, Start date: 12/03/15 21:36:00, Stop date: 12/03/15 22:36:00 Inactive 12/04/2015 [facility] midazolam (ANES) Route: IV, ug form: SOLN, ONCE, Stop date: 12/03/15 21:22:00 Inactive 12/04/2015 [facility] lidocaine (ANES) Route: IV, Dr ug form: INJ, ONCE, Stop date: 12/03/15 21:22:00 Inactive 12/04/2015 [facility] fentaNYL (ANES) Route: IV, Brice g form: INJ, ONCE, Stop date: 12/03/15 21:22:00 Inactive 12/04/2015 [facility] glycopyrrolate (ANES) Route: I V, Drug form: INJ, ONCE, Stop date: 12/03/15 21:22:00 Inactive 12/04/2015 [facility] acetaminophen (ANES) Route: IV , Drug form: INJ, ONCE, Stop date: 12/03/15 21:22:00 Inactive 12/04/2015 [facility] ondansetron (ANES) Route: IV, Drug form: INJ, ONCE, Stop date: 12/03/15 21:22:00 Inactive 12/04/2015 [facility] neostigmine (ANES) Route: IV, Drug form: INJ, ONCE, Stop date: 12/03/15 21:22:00 Inactive 12/04/2015 [facility] propofol (ANES) Route: IV, Brice g form: INJ, ONCE, Stop date: 12/03/15 21:22:00 Inactive 12/04/2015 [facility] Lactated Ringers Injection IV (ANES) (ANES) Route: IV, Total Volume: 1,000, Start date: 12/03/15 20:47:00, Stop date: 12/03/15 21:47:00 Inactive 12/04/2015 [facility] Xopenex 0.63 mg, Route: NEB, O NCE, Dosing Weight 95, kg, PRN Respiratory Protocol, Start date: 12/03/15 13:56:00, Stop date: 01/02/16 13:55:00 Inactive 12/03/2015 [facility] Protonix Notes: For IV push re constitute with 10 ml 0.9% sodium chloride and push over 2 minutes. (Same as: Protonix) No Longer Active 12/03/2015 [facility] 200 ACTUAT Albuterol 0.09 MG/ACTUAT Mete red Dose Inhaler [Proventil] 2 puff, INHALER, Q4H, PRN wheezing, coug brooke, or shortness of breath, # 1 ea, 1 Refill(s) Active 12/03/2015 [facility] Metformin 500 mg, PO, Daily, 0 Refill(s) Active 12/03/2015 [facility] Morphine Notes: (Same as:MORPh ine Sulfate) No Longer Active 12/02/2015 [facility] Ondansetron Notes: (Same as: Stephen shearer) MEDICATION WASTE Product Size: 4 mg Product Wasted: ___ mg No Longer Active 12/02/2015 [facility] Saline Flush 0.9% Notes: (Same as: BD Posiflush) No Longer Active 12/02/2015 [facility] Sodium Chloride 0.154 MEQ/ML Injectable Solution 1,000 mL, Rate: 100 ml/hr, Infuse over: 10 hr, Route: IV, Dosing Weight 95.455 kg, Total Volume: 1,000, Start date: 12/02/15 17:14:00, Duration: 30 day, Stop date: 01/01/16 17:13:00 No Longer Active 12/02/2015 [facility] naproxen 500 mg oral tablet 50 0 mg, PO, BID, PRN Pain, # 30 tab, 0 Refill(s) Active 11/10/2015 [facility] Sulfamethoxazole 800 MG / Trimethoprim 1 60 MG Oral Tablet [Bactrim] 1 tab, PO, BID, X 7 day, # 14 tab, 0 Ref ill(s) Active 11/10/2015 [facility] Sodium Chloride 0.154 MEQ/ML Injectable Solution 1,000 mL, 1000 ml/hr, Infuse Over: 1 hr, Route: IV, 1,000, Drug form: INJ, ONCE, Priority: STAT, Dosing Weight 97.727 kg, Start date: 11/10/15 1:54:00, Duration: 1 doses or times, Stop date: 11/10/15 1:54:00 Inactive 11/10/2015 [facility] Rocephin Notes: (Same As: Amari ferris). Use with 100 mL NS and infuse over 30 min MEDICATION WASTE Product Size: 1000 mg Product Wasted: ___ mg Inactive 11/10/2015 [facility] Saline Flush 0.9% Notes: (Same as: BD Posiflush) No Longer Active 11/10/2015 [facility] Sulfamethoxazole 800 MG / Trimethoprim 1 60 MG Oral Tablet [Bactrim] Special Instructions: for UTI Active 06/11/2015 [facility] Sodium Chloride 0.154 MEQ/ML Injectable Solution 1,000 mL, 100 ml/hr, Infuse Over: 1 Hour, Route: IV, ONCE, Dosing Weight 95.455 kg, Start date: 06/10/15 22:48:00, Stop date: 06/10/15 22:48:00 Inactive 06/11/2015 [facility] Acetaminophen 650 mg, Route: P R, ONCE, Dosing Weight 95.455, kg, Priority: STAT, Start date: 06/10/15 22:42:00, Stop date: 06/10/15 22:42:00 Inactive 06/11/2015 [facility] Sodium Chloride 0.154 MEQ/ML Injectable Solution 100 mL, 100 ml/hr, Infuse Over: 1 Hour, Route: IV, ONCE, Priority: STAT, Dosing Weight 95.455 kg, Start date: 06/10/15 22:10:00, Duration: 1 doses or times, Stop date: 06/10/15 22:10:00 Inactive 06/11/2015 [facility] Protonix 40 mg, Route: IVP, ON CE, Dosing Weight 113.636, kg, Priority: STAT, Start date: 04/21/15 14:11:00, Stop date: 04/21/15 14:11:00 Inactive 04/21/2015 [facility] Benadryl 25 mg, Route: IVP, ON CE, Dosing Weight 113.636, kg, Priority: STAT, Start date: 04/21/15 14:11:00, Stop date: 04/21/15 14:11:00 Inactive 04/21/2015 [facility] Reglan 10 mg, Route: IVP, Drug form: INJ, ONCE, Dosing Weight 113.636, kg, Priority: STAT, Start date: 04/21/15 14:11:00, Stop date: 04/21/15 14:11:00 Inactive 04/21/2015 [facility] Sodium Chloride 0.154 MEQ/ML Injectable Solution 1,000 mL, 1,000 ml/hr, Infuse Over: 1 hr, Route: IV, ONCE, Priority: STAT, Dosing Weight 113.636 kg, Start date: 04/21/15 14:10:00, Duration: 1 doses or times, Stop date: 04/21/15 14:10:00 Inactive 04/21/2015 [facility] Metronidazole 500 MG Oral Tablet [Flagyl] 500 mg = 1 tab, PO, Q12H, X 7 day, # 14 tab, 0 Refill(s) Active 04/19/2015 [facility] Sulfamethoxazole 800 MG / Trimethoprim 1 60 MG Oral Tablet [Bactrim] 1 tab, PO, BID, X 7 day, # 14 tab, 0 Ref ill(s) Active 04/19/2015 [facility] Rocephin 250 mg, Route: IM, Dr wray form: PDR/INJ, ONCE, Dosing Weight 97.727, kg, Priority: STAT, Start date: 04/19/15 0:13:00, Stop date: 04/19/15 0:13:00 Inactiv e 04/19/2015 [facility] Rocephin 1 gm, Route: IVPB, Dr wray form: PDR/INJ, ONCE, Dosing Weight 97.727, kg, Priority: STAT, Start date: 04/18/15 23:47:00, Stop date: 04/18/15 23:47:00 No Longer Active 04/19/2015 [facility] Albuterol 0.833 MG/ML / Ipratropium Brom dimple 0.167 MG/ML Inhalant Solution [DuoNeb] Notes: (Same as: Duoneb) No Longer Active 04/19/2015 [facility] Tylenol Notes: Do not exceed 4 gm/day. (Same as: Tylenol) Inactive 04/19/2015 [facility] Saline Flush 0.9% Notes: (Same as: BD Posiflush) No Longer Active 04/19/2015 [facility] Sodium Chloride 0.154 MEQ/ML Injectable Solution 1,000 mL, Rate: 125 ml/hr, Infuse over: 8 hr, Route: IV, Dosing Weight 97.727 kg, Total Volume: 1,000, Start date: 04/18/15 23:10:00, Duration: 30 day, Stop date: 05/18/15 23:09:00 No Longer Active 04/19/2015 [facility] Ceftriaxone 250 mg, Route: IM, Drug form: PDR/INJ, ONCE, Dosing Weight 100, kg, Priority: STAT, Start date: 03/09/15 23:42:00, Stop date: 03/09/15 23:42:00 Inactive 03/10/2015 [facility] Ondansetron 4 MG Oral Tablet [Zofran] 4 mg = 1 tab, PO, BID, X 5 day, # 10 tab, 0 Refill(s) Active 03/10/2015 [facility] Metronidazole 500 MG Oral Tablet [Flagyl] 500 mg = 1 tab, PO, Q12H, X 14 day, # 28 tab, 0 Refill(s) Active 03/10/2015 [facility] doxycycline monohydrate 100 mg oral tablet 100 mg = 1 tab, PO, Q12H, X 14 day, # 28 tab, 0 Refill(s) Active 03/10/2015 [facility] Morphine Notes: (Same as:MORPh ine Sulfate) Inactive 03/10/2015 [facility] Sodium Chloride 0.154 MEQ/ML Injectable Solution 1,000 mL, 1,000 ml/hr, Infuse Over: 1 hr, Route: IV, 1,000, Drug form: INJ, ONCE, Priority: STAT, Dosing Weight 100 kg, Start date: 03/09/15 17:15:00, Duration: 1 doses or times, Stop date: 03/09/15 17:15:00 Inactive 03/09/2015 [facility] Zofran Notes: (Same as: Lionel ) MEDICATION WASTE Product Size: 4 mg Product Wasted: ___ mg Inactive 03/09/2015 [facility] Diflunisal 500 MG Oral Tablet [Dolobid] 500 mg = 1 tab, PO, Q8H, # 90 tab, 0 Refill(s) Active 11/04/2014 [facility] Ondansetron 4 MG Disintegrating Tablet [Zofran] Special Instructions: Dissolve tab under tongue Active 11/04/2014 [facility] Metronidazole 500 MG Oral Tablet [Flagyl] 500 mg = 1 tab, PO, Q12H, # 14 tab, 0 Refill(s) Active 11/04/2014 [facility] doxycycline monohydrate 100 mg oral tablet 100 mg = 1 tab, PO, Q12H, # 20 tab, 0 Refill(s) Active 11/04/2014 [facility] Flagyl 1,000 mg, Route: PO, ON CE, Dosing Weight 97.727, kg, Priority: STAT, Start date: 11/04/14 11:53:00, Stop date: 11/04/14 11:53:00 Inactive 11/04/2014 [facility] Rocephin 250 mg, Route: IM, Dr ug form: PDR/INJ, ONCE, Dosing Weight 97.727, kg, Priority: STAT, Start date: 11/04/14 11:53:00, Stop date: 11/04/14 11:53:00 Inactive 11/04/2014 [facility] Ketorolac 30 mg, Route: IVP, D rug form: INJ, ONCE, Dosing Weight 97.727, kg, Priority: STAT, Start date: 11/04/14 8:48:00, Stop date: 11/04/14 8:48:00 Inactiv e 11/04/2014 [facility] Ondansetron 4 MG Disintegrating Tablet Special Instructions: Dissolve tab under tongue Active 10/30/2014 [facility] Sulfamethoxazole 800 MG / Trimethoprim 1 60 MG Oral Tablet [Bactrim] 1 tab, PO, BID, # 28 tab, 0 Refill(s) Active 10/30/2014 [facility] Tylenol 975 mg, Route: PO, Brice g form: TAB, ONCE, Dosing Weight 97.727, kg, Priority: STAT, Start date: 10/30/14 8:49:00, Stop date: 10/30/14 8:49:00 Inactive 10/30/2014 [facility] Morphine 4 mg, Route: IVP, ONC E, Dosing Weight 97.727, kg, Priority: STAT, Start date: 10/30/14 8:08:00, Stop date: 10/30/14 8:08:00 Inactive 10/30/2014 [facility] Ondansetron 4 mg, Route: IVP, ONCE, Dosing Weight 97.727, kg, Priority: STAT, Start date: 10/30/14 8:08:00, Stop date: 10/30/14 8:08:00 Inactive 10/30/2014 [facility] Saline Flush 0.9% Notes: (Same as: BD Posiflush) Inactive 10/30/2014 [facility] Sodium Chloride 0.154 MEQ/ML Injectable Solution 1,000 mL, Infuse Over: 1 hr, Route: IV, ONCE, Priority: STAT, Dosing Weight 97.727 kg, Start date: 10/30/14 8:08:00, Duration: 1 doses or times, Stop date: 10/30/14 8:08:00 Inactive 10/30/2014 [facility] Phenazopyridine hydrochloride 200 MG Ora l Tablet [Pyridium] 200 mg = 1 tab, PO, TID, # 21 tab, 0 Refill(s) Active 06/23/2014 [facility] Nitrofurantoin 100 MG Oral Capsule [Macrodantin] 100 mg = 1 cap, PO, QID, # 28 cap, 0 Refill(s) Active 06/23/2014 [facility] Hydrocortisone 10 MG/ML / Neomycin 3.5 M G/ML / Polymyxin B 10783 UNT/ML Otic Solution 4 drp, RIGHT EAR, QID, # 10 mL, 0 Refill (s) Active 06/23/2014 [facility] Ondansetron 4 mg, Route: IVP, Drug form: INJ, ONCE, Dosing Weight 52.273, kg, Priority: STAT, Start date: 06/23/14 9:02:00, Stop date: 06/23/14 9:02:00 Inactiv e 06/23/2014 [facility] Sodium Chloride 0.154 MEQ/ML Injectable Solution 1,000 mL, 1,000 ml/hr, Infuse Over: 1 hr, Route: IV, ONCE, Priority: STAT, Dosing Weight 52.273 kg, Start date: 06/23/14 9:02:00, Duration: 1 doses or times, Stop date: 06/23/14 9:02:00 Inactive 06/23/2014 [facility] Albuterol 0.833 MG/ML / Ipratropium Brom dimple 0.167 MG/ML Inhalant Solution [DuoNeb] 3 mL, INHALATION, TID, Wheezing, # 90 mL , 0 Refill(s) Active 06/10/2014 [facility] predniSONE 20 mg oral tablet S pecial Instructions: Take 3 tablets for 60 mg dose Activ e 06/10/2014 [facility] 200 ACTUAT Ipratropium [place] 0.017 MG/ ACTUAT Metered Dose Inhaler [Atrovent] 1 puff, INHALATION, QID, wheezing, # 1 e a, 0 Refill(s) Active 06/10/2014 [facility] Albuterol 0.83 MG/ML Inhalant Solution 2.49 mg = 3 mL, INHALATION, Q6H, # 120 ea, 0 Refill(s) Active 06/10/2014 [facility] Prednisone Notes: Take with fo od. Inactive 06/10/2014 [facility] Albuterol 0.833 MG/ML / Ipratropium Brom dimple 0.167 MG/ML Inhalant Solution [DuoNeb] 3 mL, Route: INHALATION, Dosing Weight 9 7.727, kg, ONCE, STAT, Start date: 06/10/14 4:02:00, Stop date: 06/10/14 4:02:00 Inactive 06/10/2014 [facility] Protonix 40 mg oral enteric coated tablet 40 mg, 1 tab, PO, Daily, 30 tab, Substitution Allowed, ECTAB PO Active Yang s 07/09/2012 [facility] Ultram 50 mg oral tablet 50 mg , 1 tab, PO, Q4H, PRN, 20 tab, pain, Substitution Allowed PO Active Yang s 07/09/2012 [facility] ondansetron 4 mg oral tablet, disintegrating 4 mg, Route: PO, Drug form: TABDIS, ONCE, Dosing Weight 98.636, kg, Priority: STAT, Start date: 07/08/12 23:26:00, Stop date: 07/08/12 23:26:00 PO No Longer Active Mustapha 07/09/2012 [facility] Sodium Chloride 0.9% (Bolus) IV 1000 mL 1,000 mL, Rate: 1,000 ml/hr, Infuse over: 1 hr, Route: IV, Dosing Weight 98.636 kg, Total Volume: 1,000, Bolus Dose, Priority: STAT, Start date: 07/08/12 22:50:00, Duration: 1 doses or times, Stop date: 07/08/12 23:49:00 IV No Longer Active Mustapha 07/09/2012 [facility] morphine Sulfate 4 mg, Route: IVP, ONCE, Dosing Weight 98.636, kg, Priority: STAT, Start date: 07/08/12 22:50:00, Stop date: 07/08/12 22:50:00 IVP No Longer Active Luciano 07/09/2012 [facility] METRONIDazole 500 mg oral tablet 500 mg, 1 tab, PO, Q12H, 14 tab, Substitution Allowed PO Active Ulisses r 04/16/2012 [facility] naproxen 500 mg oral tablet 50 0 mg, 1 tab, PO, BID, PRN, 30 tab, Pain, Substitution Allowed PO Active Ulisses r 04/16/2012 [facility] DuoNeb inhalation solution 3 m l, INHALATION, QID, PRN, 30 ea, as needed for shortness of breath or wheezing, Substitution Allowed, Maintenance, SOLN INHALATION Active Crane 11/11/2011 [facility] DuoNeb inhalation solution 3 m l, Route: INHALATION, Drug Form: SOLN, QID, PRN See Respiratory Notes, Start date: 11/10/11 23:16:00, Duration: 30 day, Stop date: 12/10/11 23:15:00, once INHALATION No Longer Active Crane 11/11/2011 [facility] Motrin Route: PO, ONCE, Start date: 11/10/11 23:15:00, Stop date: 11/10/11 23:15:00 PO No Longer Active Crane 11/11/2011 [facility] Ultram 50 mg oral tablet 1 - 2 tabs, PO, Q4-6H, PRN, 30 tab, as needed for pain, Substitution Allowed PO Active Kimb all 11/11/2011 [facility] Saline Flush 0.9% 5 ml, Route: IVP, PRN, PRN Line Flush, Start date: 11/10/11 22:05:00, Duration: 24 hr, Stop date: 11/11/11 22:04:00 IVP No Longer Active Crane 11/2011 [facility] Ultram 50 mg oral tablet 50 mg , 1 tab, Route: PO, Drug form: TAB, Q4H, PRN Pain, Start date: 11/10/11 21:59:00, Duration: 30 day, Stop date: 12/10/11 21:58:00 PO No Longer Active Callum 11/11/2011 [facility] doxycycline hyclate 100 mg oral tablet 100 mg, 1 tab, PO, BID, 20 tab, Substitution Allowed, TAB PO Active Filao an 10/16/2011 [facility] Naprosyn 500 mg oral tablet 50 0 mg, 1 tab, PO, BID, 20 tab, Substitution Allowed, TAB PO Active Soum an 10/16/2011 [facility] Saline Flush 0.9% 5 ml, Route: IVP, Drug Form: INJ, PRN, PRN Line Flush, Start date: 10/15/11 13:56:00, Duration: 24 hr, Stop date: 10/16/11 13:55:00 IVP No Longer Active [facility] 10/15/2011 [facility] Allergies, Adverse Reactions, Alerts Substance Category Reaction Severity Reaction type Status Date Reported Comments Source Cipro Assertion Drug allergy Active [facility] erythromycin Assertion Drug allergy Active [facility] hydrocodone Assertion Drug allergy Active [facility] Phenergan Assertion Drug allergy Active [facility] Stadol Assertion Drug allergy Active [facility] predniSONE Assertion Drug allergy Active [facility] aspirin Assertion Drug allergy Active [facility] nitrous oxide Assertion Drug allergy Active [facility] HYDROcodone Assertion Drug allergy Active [facility] ciprofloxacin Assertion Drug allergy Active [facility] Immunizations No Data Provided for This Section Results Order Name Results Value Reference Range Date Interpretation Comments Source CARDIAC ENZYMES Troponin-I <0.02 0.00 - 0.40 07/30/2017 [facility] CARDIAC ENZYMES Total CK 74 12 - 191 07/30/2017 [facility] CARDIAC ENZYMES CK MB 0.7 0.5 - 3.6 07/30/2017 [facility] CARDIAC ENZYMES CK MB Index 0.9 0.0 - 2.5 07/30/2017 [facility] CARDIAC ENZYMES Troponin-I <0.02 0.00 - 0.40 07/30/2017 [facility] CARDIAC ENZYMES Total CK 80 12 - 191 07/30/2017 [facility] LIPIDS VLDL 13 07/30/2017 [facility] LIPIDS LDL (Calculated) 87 <=99 mg/dL 07/30/2017 [facility] LIPIDS Chol 186 <=199 mg/dL 07/30/2017 [facility] LIPIDS Trig 66 <=149 mg/dL 07/30/2017 [facility] LIPIDS HDL 86 >=61 mg/dL 07/30/2017 [facility] LIPIDS CHD Risk 2.16 3.90 - 5.80 07/30/2017 [facility] CARDIAC ENZYMES Total CK 91 12 - 191 07/30/2017 [facility] CARDIAC ENZYMES CK MB 0.8 0.5 - 3.6 07/30/2017 [facility] CARDIAC ENZYMES Troponin-I <0.02 0.00 - 0.40 07/30/2017 [facility] CARDIAC ENZYMES CK MB Index 0.9 0.0 - 2.5 07/30/2017 [facility] CHEM PANEL Lipase Lvl 207 73 - 393 07/30/2017 [facility] CHEM PANEL eGFR 106 07/30/2017 Result Comment: [...] should be multiplied by the estimated BMI. [facility] CHEM PANEL Bili Total 0.4 0.2 - 1.3 07/30/2017 [facility] CHEM PANEL AGAP 11.5 10.0 - 20.0 07/30/2017 [facility] CHEM PANEL Alk Phos 77 39 - 136 07/30/2017 [facility] CHEM PANEL Total Protein 7.1 6.4 - 8.4 07/30/2017 [facility] CHEM PANEL ALT 28 0 - 65 07/30/2017 [facility] CHEM PANEL AST 13 0 - 37 07/30/2017 [facility] CHEM PANEL Albumin Lvl 3.4 3.5 - 5.0 07/30/2017 [facility] CHEM PANEL BUN 14 7 - 22 07/30/2017 [facility] CHEM PANEL Glucose Lvl 177 70 - 99 07/30/2017 [facility] CHEM PANEL Creatinine Lvl 0.75 0.50 - 1.40 07/30/2017 [facility] CHEM PANEL Sodium Lvl 139 135 - 145 07/30/2017 [facility] CHEM PANEL Chloride Lvl 105 95 - 109 07/30/2017 [facility] CHEM PANEL CO2 26 24 - 32 07/30/2017 [facility] CHEM PANEL Potassium Lvl 3.5 3.5 - 5.1 07/30/2017 [facility] CHEM PANEL Calcium Lvl 9.1 8.5 - 10.5 07/30/2017 [facility] CHEM PANEL Globulin 3.7 2.7 - 4.2 07/30/2017 [facility] CHEM PANEL A/G Ratio 0.9 0.7 - 1.6 07/30/2017 [facility] CHEM PANEL B/C Ratio 19 6 - 25 07/30/2017 [facility] CHEM PANEL Ketone Quantitative 0.11 <=0.27 mmol/L 07/30/2017 [facility] DRUG SCREEN U Phencyc Scr Nega tive *NA* (07/30/17 9:23 AM) Negative 07/30/2017 [facility] DRUG SCREEN U Opiate Scr Nega tive *NA* (07/30/17 9:23 AM) Negative 07/30/2017 [facility] DRUG SCREEN U Cocaine Scr Nega tive *NA* (07/30/17 9:23 AM) Negative 07/30/2017 [facility] DRUG SCREEN U Benzodia Scr Nega tive *NA* (07/30/17 9:23 AM) Negative 07/30/2017 [facility] DRUG SCREEN U Cannab Scr Nega tive *NA* (07/30/17 9:23 AM) Negative 07/30/2017 [facility] DRUG SCREEN U Jocelyn Scr Nega tive *NA* (07/30/17 9:23 AM) Negative 07/30/2017 [facility] DRUG SCREEN U Amph Scr Nega tive *NA* (07/30/17 9:23 AM) Negative 07/30/2017 [facility] DRUG SCREEN UDS Note See Note *NA* (07/30/17 9:23 AM) 07/30/2017 [facility] ENDOCRINOLOGY S Preg Ne gative *NA* (07/30/17 9:23 AM) Negative 07/30/2017 [facility] HEMATOLOGY PTT 30.2 22.9 - 35.8 07/30/2017 [facility] HEMATOLOGY PT 13.7 12.0 - 14.7 07/30/2017 [facility] HEMATOLOGY INR 1.05 0.85 - 1.17 07/30/2017 [facility] HEMATOLOGY D-Dimer <0.27 07/30/2017 [facility] HEMATOLOGY MCHC 33.1 32.0 - 36.0 07/30/2017 [facility] HEMATOLOGY RDW 14.8 11.5 - 14.5 07/30/2017 [facility] HEMATOLOGY MPV 8.8 7.4 - 10.4 07/30/2017 [facility] HEMATOLOGY Platelet 296 133 - 450 07/30/2017 [facility] HEMATOLOGY Hgb 12.2 12.0 - 16.0 07/30/2017 [facility] HEMATOLOGY Hct 36.7 36.0 - 48.0 07/30/2017 [facility] HEMATOLOGY RBC 4.55 4.20 - 5.40 07/30/2017 [facility] HEMATOLOGY WBC 9.9 3.7 - 10.4 07/30/2017 [facility] HEMATOLOGY MCH 26.7 27.0 - 31.0 07/30/2017 [facility] HEMATOLOGY MCV 80.8 80.0 - 98.0 07/30/2017 [facility] HEMATOLOGY Segs-Bands # 6.6 1.5 - 8.1 07/30/2017 [facility] HEMATOLOGY Lymphocytes # 2.5 1.0 - 5.5 07/30/2017 [facility] HEMATOLOGY Basophils # 0.1 0.0 - 0.2 07/30/2017 [facility] HEMATOLOGY Monocytes # 0.4 0.0 - 0.8 07/30/2017 [facility] HEMATOLOGY Eosinophils # 0.2 0.0 - 0.5 07/30/2017 [facility] HEMATOLOGY Segs 67.5 45.0 - 75.0 07/30/2017 [facility] HEMATOLOGY Lymphocytes 25.3 20.0 - 40.0 07/30/2017 [facility] HEMATOLOGY Eosinophils 2.4 0.0 - 4.0 07/30/2017 [facility] HEMATOLOGY Basophils 0.7 0.0 - 1.0 07/30/2017 [facility] HEMATOLOGY Monocytes 4.1 2.0 - 12.0 07/30/2017 [facility] URINE AND STOOL UA Urobilinogen <=1.0 mg/dL 0.1 - 1.0 07/30/2017 [facility] URINE AND STOOL UA Bili Negative *NA* (07/30/17 9:23 AM) Negative 07/30/2017 [facility] URINE AND STOOL UA Ketones Negative mg/dL Negative mg/dL 07/30/2017 [facility] URINE AND STOOL UA Glucose 50 mg/dL Negative mg/dL 07/30/2017 [facility] URINE AND STOOL UA Sq Epi Few /LPF Few /LPF 07/30/2017 [facility] URINE AND STOOL UA Leuk Est Trace *ABN* (07/30/17 9:23 AM) Negative 07/30/2017 [facility] URINE AND STOOL UA Nitrite Negative (07/30/17 9:23 AM) Negative 07/30/2017 [facility] URINE AND STOOL UA Blood Negative (07/30/17 9:23 AM) Negative 07/30/2017 [facility] URINE AND STOOL UA Bacteria Occasional /HPF None Seen /HPF 07/30/2017 [facility] URINE AND STOOL UA RBC <1 0 - 2 07/30/2017 [facility] URINE AND STOOL UA WBC 4 0 - 5 07/30/2017 [facility] URINE AND STOOL UA Mucus Few /LPF None Seen /LPF 07/30/2017 [facility] URINE AND STOOL UA pH 7.0 5.0 - 8.0 07/30/2017 [facility] URINE AND STOOL UA Spec Grav 1.006 <=1.030 07/30/2017 [facility] URINE AND STOOL UA Protein Negative mg/dL Negative mg/dL 07/30/[facility] UR[facility] STOOL UA Turbidity Clear (07/30/17 9:23 AM) Clear 07/30/2017 [facility] URINE AND STOOL UA Color Light Yellow *NA* (07/30/17 9:23 AM) Yellow 07/30/2017 [facility] CHEM PANEL Bili Total 0.2 0.2 - 1.3 09/21/[address] [facility] eGFR 101 09/21/2016 Result Comment: The eGFR [...] should be multiplied by the estimated BMI. [facility] CHEM PANEL Glucose Lvl 210 70 - 99 09/21/2016 [facility] CHEM PANEL Creatinine Lvl 0.78 0.50 - 1.40 09/21/2016 [facility] CHEM PANEL Sodium Lvl 136 135 - 145 09/21/2016 [facility] CHEM PANEL BUN 13 7 - 22 09/21/2016 [facility] CHEM PANEL Total Protein 7.3 6.4 - 8.4 09/21/2016 [facility] CHEM PANEL Albumin Lvl 3.3 3.5 - 5.0 09/21/2016 [facility] CHEM PANEL ALT 23 0 - 65 09/21/2016 [facility] CHEM PANEL Alk Phos 74 39 - 136 09/21/2016 [facility] CHEM PANEL AST 11 0 - 37 09/21/2016 [facility] CHEM PANEL CO2 20 24 - 32 09/21/2016 [facility] CHEM PANEL Calcium Lvl 8.3 8.5 - 10.5 09/21/2016 [facility] CHEM PANEL Chloride Lvl 103 95 - 109 09/21/2016 [facility] CHEM PANEL Potassium Lvl 3.1 3.5 - 5.1 09/21/2016 [facility] CHEM PANEL A/G Ratio 0.8 0.7 - 1.6 09/21/2016 [facility] CHEM PANEL AGAP 16.1 10.0 - 20.0 09/21/2016 [facility] CHEM PANEL B/C Ratio 17 6 - 25 09/21/2016 [facility] CHEM PANEL Globulin 4.0 2.7 - 4.2 09/21/2016 [facility] [place]OCRINOLOGY h[place] [id number] 09/21/2016 [facility] HEMATOLOGY Monocytes # 0.6 0.0 - 0.8 09/21/2016 [facility] HEMATOLOGY Eosinophils # 0.2 0.0 - 0.5 09/21/2016 [facility] HEMATOLOGY Segs-Bands # 7.0 1.5 - 8.1 09/21/2016 [facility] HEMATOLOGY Lymphocytes # 2.3 1.0 - 5.5 09/21/2016 [facility] HEMATOLOGY Basophils 2.9 0.0 - 1.0 09/21/2016 [facility] HEMATOLOGY Eosinophils 1.8 0.0 - 4.0 09/21/2016 [facility] HEMATOLOGY Lymphocytes 22.2 20.0 - 40.0 09/21/2016 [facility] HEMATOLOGY Monocytes 6.0 2.0 - 12.0 09/21/2016 [facility] HEMATOLOGY Segs 67.1 45.0 - 75.0 09/21/2016 [facility] HEMATOLOGY Basophils # 0.3 0.0 - 0.2 09/21/2016 [facility] HEMATOLOGY MPV 9.4 7.4 - 10.4 09/21/2016 [facility] HEMATOLOGY RDW 14.8 11.5 - 14.5 09/21/2016 [facility] HEMATOLOGY Platelet 303 133 - 450 09/21/2016 [facility] HEMATOLOGY MCH 26.0 27.0 - 31.0 09/21/2016 [facility] MCHC 32.6 32.0 - 36.0 09/21/2016 [facility] HEMATOLOGY MCV 79.8 80.0 - 98.0 09/21/2016 [facility] HEMATOLOGY Hct 37.8 36.0 - 48.0 09/21/2016 [facility] RBC 4.74 4.20 - 5.40 09/21/2016 [facility] Hgb 12.3 12.0 - 16.0 09/21/2016 [facility] WBC 10.4 3.7 - 10.4 09/21/2016 [facility] URINE AND STOOL UA Nitrite Negative (09/21/16 1:09 PM) Negative 09/21/2016 [facility] URINE AND STOOL UA Leuk Est Moderate *ABN* (09/21/16 1:09 PM) Negative 09/21/2016 [facility] URINE AND STOOL UA Blood Small *ABN* (09/21/16 1:09 PM) Negative 09/21/2016 [facility] URINE AND STOOL UA Urobilinogen <=1.0 mg/dL 0.1 - 1.0 09/21/2016 [facility] URINE AND STOOL UA Spec Grav 1.018 <=1.030 09/21/2016 [facility] URINE AND STOOL UA Color Light Yellow *NA* (09/21/16 1:09 PM) Yellow 09/21/2016 [facility] URINE AND STOOL UA Turbidity Slight *ABN* (09/21/16 1:09 PM) Clear 09/21/2016 [facility] URINE AND STOOL UA Bili Negative *NA* (09/21/16 1:09 PM) Negative 09/21/2016 [facility] URINE AND STOOL UA Ketones 20 mg/dL Negative mg/dL 09/21/2016 [facility] URINE AND STOOL UA Glucose 500 mg/dL Negative mg/dL 09/21/2016 [facility] URINE AND STOOL UA Protein Negative mg/dL Negative mg/dL 09/21/2016 [facility] URINE AND STOOL UA pH 6.0 5.0 - 8.0 09/21/2016 [facility] URINE AND STOOL UA RBC 3 0 - 2 09/21/2016 [facility] URINE AND STOOL UA WBC 56 0 - 5 09/21/2016 [facility] URINE AND STOOL UA Sq Epi Many /LPF Few /LPF 09/21/2016 [facility] URINE AND STOOL UA Mucus Few /LPF None Seen /LPF 09/21/2016 [facility] URINE AND STOOL UA Bacteria Few /HPF None Seen /HPF 09/21/2016 [facility] MOLECULAR DIAGNOSTIC N gonorrhea by Amp Det (APTIMA) Negative *NA* (09/16/16 5:09 PM) Negative 09/16/2016 [facility] MOLECULAR DIAGNOSTIC Source APTIMA Vaginal (09/16/16 5:09 PM) 09/16/2016 [facility] MOLECULAR DIAGNOSTIC C trachomatis b y Amp Det (APTIMA) Negative *NA* (09/16/16 5:09 PM) Negative 09/16/2016 [facility] MOLECULAR DIAGNOSTIC Source APTIMA Vaginal (09/16/16 5:09 PM) 09/16/2016 [facility] URINE AND STOOL UA Color Ltyellow 09/16/2016 [facility] URINE AND STOOL UA Urobilinogen <=1.0 mg/dL 0.1 - 1.0 09/16/2016 [facility] URINE AND STOOL UA Sq Epi Few /LPF Few /LPF 09/16/2016 [facility] URINE AND STOOL UA Bacteria Occasional /HPF None Seen /HPF 09/16/2016 [facility] URINE AND STOOL UA RBC 1 0 - 2 09/16/2016 [facility] URINE AND STOOL UA Mucus Few /LPF None Seen /LPF 09/16/2016 [facility] URINE AND STOOL UA WBC 20 0 - 5 09/16/2016 [facility] URINE AND STOOL UA Spec Grav 1.015 <=1.030 09/16/2016 [facility] URINE AND STOOL UA Turbidity Clear (09/16/16 3:19 PM) Clear 09/16/2016 [facility] URINE AND STOOL UA Ketones 20 mg/dL Negative mg/dL 09/16/2016 [facility] URINE AND STOOL UA Bili Negative *NA* (09/16/16 3:19 PM) Negative 09/16/2016 [facility] URINE AND STOOL UA Protein Negative mg/dL Negative mg/dL 09/16/[address] [facility] [address] URINE AND STOOL UA Glucose Negative mg/dL Negative mg/dL 09/16/[address] [address] URINE AND STOOL UA pH 5.0 5.0 - 8.0 09/16/2016 [facility] URINE AND STOOL UA Blood Moderate *ABN* (09/16/16 3:19 PM) Negative 09/16/2016 [facility] URINE AND STOOL UA Nitrite Negative (09/16/16 3:19 PM) Negative 09/16/2016 [facility] URINE AND STOOL UA Leuk Est Moderate *ABN* (09/16/16 3:19 PM) Negative 09/16/2016 [facility] URINE CHEM U Preg Posit jesus *ABN* (09/16/16 3:19 PM) Negative 09/16/2016 [facility] BLOOD BANK RESULTS ABO/Rh B POS 09/16/2016 [facility] CHEM PANEL eGFR 105 09/16/2016 Result Comment: [...] should be multiplied by the estimated BMI. [facility] CHEM PANEL CO2 23 24 - 32 09/16/2016 [facility] CHEM PANEL Albumin Lvl 3.4 3.5 - 5.0 09/16/2016 [facility] CHEM PANEL ALT 25 0 - 65 09/16/2016 [facility] CHEM PANEL Calcium Lvl 8.2 8.5 - 10.5 09/16/2016 [facility] CHEM PANEL Total Protein 7.7 6.4 - 8.4 09/16/2016 [facility] CHEM PANEL Glucose Lvl 156 70 - 99 09/16/2016 [facility] CHEM PANEL BUN 9 7 - 22 09/16/2016 [facility] CHEM PANEL Potassium Lvl 3.4 3.5 - 5.1 09/16/2016 [facility] CHEM PANEL Chloride Lvl 101 95 - 109 09/16/2016 [facility] CHEM PANEL Creatinine Lvl 0.76 0.50 - 1.40 09/16/2016 [facility] CHEM PANEL Sodium Lvl 134 135 - 145 09/16/2016 [facility] CHEM PANEL AST 21 0 - 37 09/16/2016 [facility] CHEM PANEL Alk Phos 77 39 - 136 09/16/2016 [facility] CHEM PANEL Bili Total 0.4 0.2 - 1.3 09/16/2016 [facility] CHEM PANEL Globulin 4.3 2.7 - 4.2 09/16/2016 [facility] CHEM PANEL A/G Ratio 0.8 0.7 - 1.6 09/16/2016 [facility] CHEM PANEL B/C Ratio 12 6 - 25 09/16/2016 [facility] CHEM PANEL AGAP 13.4 10.0 - 20.0 09/16/2016 [facility] ENDOCRINOLOGY hCG Tot [id number] 09/16/2016 [facility] HEMATOLOGY Eosinophils 2.9 0.0 - 4.0 09/16/2016 [facility] HEMATOLOGY Lymphocytes 28.8 20.0 - 40.0 09/16/2016 [facility] HEMATOLOGY Monocytes 5.1 2.0 - 12.0 09/16/2016 [facility] HEMATOLOGY Basophils # 0.1 0.0 - 0.2 09/16/2016 [facility] HEMATOLOGY Monocytes # 0.5 0.0 - 0.8 09/16/2016 [facility] HEMATOLOGY Eosinophils # 0.3 0.0 - 0.5 09/16/2016 [facility] HEMATOLOGY Segs-Bands # 6.3 1.5 - 8.1 09/16/2016 [facility] HEMATOLOGY Basophils 0.6 0.0 - 1.0 09/16/2016 [facility] HEMATOLOGY Lymphocytes # 2.9 1.0 - 5.5 09/16/2016 [facility] HEMATOLOGY Segs 62.6 45.0 - 75.0 09/16/2016 [facility] HEMATOLOGY WBC 10.1 3.7 - 10.4 09/16/2016 [facility] HEMATOLOGY MPV 9.3 7.4 - 10.4 09/16/2016 [facility] HEMATOLOGY RDW 14.9 11.5 - 14.5 09/16/2016 [facility] HEMATOLOGY Platelet 320 133 - 450 09/16/2016 [facility] HEMATOLOGY MCV 80.2 80.0 - 98.0 09/16/2016 [facility] HEMATOLOGY Hct 41.8 36.0 - 48.0 09/16/2016 [facility] HEMATOLOGY MCHC 32.2 32.0 - 36.0 09/16/2016 [facility] HEMATOLOGY MCH 25.8 27.0 - 31.0 09/16/2016 [facility] HEMATOLOGY Hgb 13.5 12.0 - 16.0 09/16/2016 [facility] HEMATOLOGY RBC 5.22 4.20 - 5.40 09/16/2016 [facility] URINE AND STOOL UA Urobilinogen <=1.0 mg/dL 0.1 - 1.0 07/13/2016 [facility] URINE AND STOOL UA Mucus Few /LPF None Seen /LPF 07/13/2016 [facility] URINE AND STOOL UA RBC 3 0 - 2 07/13/2016 [facility] URINE AND STOOL UA Glucose 50 mg/dL Negative mg/dL 07/13/2016 [facility] URINE AND STOOL UA Ketones Trace mg/dL Negative mg/dL 07/13/2016 [facility] URINE AND STOOL UA Leuk Est Moderate *ABN* (07/13/16 12:42 AM) Negative 07/13/2016 [facility] URINE AND STOOL UA Bili Negative *NA* (07/13/16 12:42 AM) Negative 07/13/2016 [facility] URINE AND STOOL UA Protein Negative mg/dL Negative mg/dL 07/13/2016 [facility] URINE AND STOOL UA Blood Small *ABN* (07/13/16 12:42 AM) Negative 07/13/2016 [facility] URINE AND STOOL UA Sq Epi Many /LPF Few /LPF 07/13/2016 [facility] URINE AND STOOL UA WBC 16 0 - 5 07/13/2016 [facility] URINE AND STOOL UA Nitrite Negative (07/13/16 12:42 AM) Negative 07/13/2016 [facility] URINE AND STOOL UA Bacteria Occasional /HPF None Seen /HPF 07/13/2016 [facility] URINE AND STOOL UA pH 5.0 5.0 - 8.0 07/13/2016 [facility] URINE AND STOOL UA Spec Grav 1.025 <=1.030 07/13/2016 [facility] URINE AND STOOL UA Turbidity Slight *ABN* (07/13/16 12:42 AM) Clear 07/13/2016 [facility] URINE AND STOOL UA Color Yellow *NA* (07/13/16 12:42 AM) Yellow 07/13/2016 [facility] CARDIAC ENZYMES CK MB 0.7 0.5 - 3.6 07/13/2016 [facility] CARDIAC ENZYMES Total CK 68 12 - 191 07/13/2016 [facility] CARDIAC ENZYMES Troponin-I <0.02 0.00 - 0.40 07/13/2016 [facility] CARDIAC ENZYMES CK MB Index 1.0 0.0 - 2.5 07/13/2016 [facility] CHEM PANEL Bili Total 0.3 0.2 - 1.3 07/13/2016 [facility] CHEM PANEL A/G Ratio 0.9 0.7 - 1.6 07/13/2016 [facility] CHEM PANEL Total Protein 7.7 6.4 - 8.4 07/13/2016 [facility] CHEM PANEL Globulin 4.1 2.7 - 4.2 07/13/2016 [facility] CHEM PANEL AST 26 0 - 37 07/13/2016 [facility] CHEM PANEL ALT 41 0 - 65 07/13/2016 [facility] CHEM PANEL Alk Phos 84 39 - 136 07/13/2016 [facility] CHEM PANEL Albumin Lvl 3.6 3.5 - 5.0 07/13/2016 [facility] CHEM PANEL eGFR 93 07/13/2016 Result Comment: [...] should be multiplied by the estimated BMI. [facility] CHEM PANEL Chloride Lvl 104 95 - 109 07/13/2016 [facility] CHEM PANEL CO2 23 24 - 32 07/13/2016 [facility] CHEM PANEL Sodium Lvl 137 135 - 145 07/13/2016 [facility] CHEM PANEL Potassium Lvl 3.6 3.5 - 5.1 07/13/2016 [facility] CHEM PANEL B/C Ratio 20 6 - 25 07/13/2016 [facility] CHEM PANEL Calcium Lvl 8.6 8.5 - 10.5 07/13/2016 [facility] CHEM PANEL AGAP 13.6 10.0 - 20.0 07/13/2016 [facility] CHEM PANEL Glucose Lvl 204 70 - 99 07/13/2016 [facility] CHEM PANEL BUN 17 7 - 22 07/13/2016 [facility] CHEM PANEL Creatinine Lvl 0.84 0.50 - 1.40 07/13/2016 [facility] HEMATOLOGY PTT 30.9 22.9 - 35.8 07/13/2016 [facility] HEMATOLOGY RBC 4.81 4.20 - 5.40 07/13/2016 [facility] HEMATOLOGY RDW 14.7 11.5 - 14.5 07/13/2016 [facility] HEMATOLOGY Platelet 336 133 - 450 07/13/2016 [facility] HEMATOLOGY Hgb 12.3 12.0 - 16.0 07/13/2016 [facility] HEMATOLOGY Hct 38.1 36.0 - 48.0 07/13/2016 [facility] HEMATOLOGY WBC 11.1 3.7 - 10.4 07/13/2016 [facility] HEMATOLOGY MPV 9.1 7.4 - 10.4 07/13/2016 [facility] HEMATOLOGY MCH 25.6 27.0 - 31.0 07/13/2016 [facility] HEMATOLOGY MCHC 32.3 32.0 - 36.0 07/13/2016 [facility] HEMATOLOGY MCV 79.2 80.0 - 98.0 07/13/2016 [facility] HEMATOLOGY PT 14.6 12.0 - 14.7 07/13/2016 [facility] HEMATOLOGY INR 1.12 0.85 - 1.17 07/13/2016 [facility] HEMATOLOGY D-Dimer <0.22 07/13/2016 [facility] HEMATOLOGY Eosinophils # 0.3 0.0 - 0.5 07/13/2016 [facility] HEMATOLOGY Basophils # 0.1 0.0 - 0.2 07/13/2016 [facility] HEMATOLOGY Segs-Bands # 6.9 1.5 - 8.1 07/13/2016 [facility] HEMATOLOGY Eosinophils 2.6 0.0 - 4.0 07/13/2016 [facility] HEMATOLOGY Segs 61.7 45.0 - 75.0 07/13/2016 [facility] HEMATOLOGY Lymphocytes # 3.4 1.0 - 5.5 07/13/2016 [facility] HEMATOLOGY Monocytes # 0.5 0.0 - 0.8 07/13/2016 [facility] HEMATOLOGY Basophils 0.6 0.0 - 1.0 07/13/2016 [facility] HEMATOLOGY Lymphocytes 30.7 20.0 - 40.0 07/13/2016 [facility] HEMATOLOGY Monocytes 4.4 2.0 - 12.0 07/13/2016 [facility] URINE CHEM U Preg Negat jesus (07/10/16 1:06 PM) Negative 07/10/2016 [facility] CARDIAC ENZYMES CK MB Index 1.4 0.0 - 2.5 07/07/2016 [facility] CARDIAC ENZYMES Troponin-I <0.02 0.00 - 0.40 07/07/2016 [facility] CARDIAC ENZYMES Total CK 51 12 - 191 07/07/2016 [facility] CARDIAC ENZYMES CK MB 0.7 0.5 - 3.6 07/07/2016 [facility] CHEM PANEL eGFR 103 07/07/2016 Result Comment: [...] should be multiplied by the estimated BMI. [facility] CHEM PANEL Glucose Lvl 187 70 - 99 07/07/2016 [facility] CHEM PANEL BUN 18 7 - 22 07/07/2016 [facility] CHEM PANEL Chloride Lvl 106 95 - 109 07/07/2016 [facility] CHEM PANEL Sodium Lvl 137 135 - 145 07/07/2016 [facility] CHEM PANEL Potassium Lvl 3.2 3.5 - 5.1 07/07/2016 [facility] CHEM PANEL Creatinine Lvl 0.77 0.50 - 1.40 07/07/2016 [facility] CHEM PANEL A/G Ratio 0.9 0.7 - 1.6 07/07/2016 [facility] CHEM PANEL Globulin 3.8 2.7 - 4.2 07/07/2016 [facility] CHEM PANEL Albumin Lvl 3.3 3.5 - 5.0 07/07/2016 [facility] CHEM PANEL ALT 30 0 - 65 07/07/2016 [facility] CHEM PANEL Calcium Lvl 8.4 8.5 - 10.5 07/07/2016 [facility] CHEM PANEL Total Protein 7.1 6.4 - 8.4 07/07/2016 [facility] CHEM PANEL Alk Phos 83 39 - 136 07/07/2016 [facility] CHEM PANEL AGAP 12.2 10.0 - 20.0 07/07/2016 [facility] CHEM PANEL B/C Ratio 23 6 - 25 07/07/2016 [facility] CHEM PANEL Bili Total 0.2 0.2 - 1.3 07/07/2016 [facility] CHEM PANEL CO2 22 24 - 32 07/07/2016 [facility] CHEM PANEL AST 20 0 - 37 07/07/2016 [facility] HEMATOLOGY Eosinophils # 0.3 0.0 - 0.5 07/07/2016 [facility] HEMATOLOGY Lymphocytes # 3.3 1.0 - 5.5 07/07/2016 [facility] HEMATOLOGY Monocytes # 0.6 0.0 - 0.8 07/07/2016 [facility] HEMATOLOGY Segs-Bands # 7.1 1.5 - 8.1 07/07/2016 [facility] HEMATOLOGY Monocytes 5.1 2.0 - 12.0 07/07/2016 [facility] HEMATOLOGY Eosinophils 2.9 0.0 - 4.0 07/07/2016 [facility] HEMATOLOGY Segs 62.8 45.0 - 75.0 07/07/2016 [facility] HEMATOLOGY Lymphocytes 29.0 20.0 - 40.0 07/07/2016 [facility] HEMATOLOGY Basophils 0.2 0.0 - 1.0 07/07/2016 [facility] HEMATOLOGY PTT 29.9 22.9 - 35.8 07/07/2016 [facility] HEMATOLOGY INR 1.06 0.85 - 1.17 07/07/2016 [facility] HEMATOLOGY PT 14.0 12.0 - 14.7 07/07/2016 [facility] HEMATOLOGY Platelet 316 133 - 450 07/07/2016 [facility] HEMATOLOGY MPV 8.8 7.4 - 10.4 07/07/2016 [facility] HEMATOLOGY RDW 14.6 11.5 - 14.5 07/07/2016 [facility] HEMATOLOGY MCHC 32.2 32.0 - 36.0 07/07/2016 [facility] HEMATOLOGY Hct 36.3 36.0 - 48.0 07/07/2016 [facility] HEMATOLOGY WBC 11.3 3.7 - 10.4 07/07/2016 [facility] HEMATOLOGY Hgb 11.7 12.0 - 16.0 07/07/2016 [facility] HEMATOLOGY RBC 4.57 4.20 - 5.40 07/07/2016 [facility] HEMATOLOGY MCH 25.6 27.0 - 31.0 07/07/2016 [facility] HEMATOLOGY MCV 79.3 80.0 - 98.0 07/07/2016 [facility] URINE AND STOOL UA Urobilinogen <=1.0 mg/dL 0.1 - 1.0 07/07/[address] [facility] [address] URINE AND STOOL UA Color Red 07/07/2016 [facility] URINE AND STOOL UA Nitrite Negative (07/07/16 5:15 PM) Negative 07/07/2016 [facility] URINE AND STOOL UA Leuk Est Negative (07/07/16 5:15 PM) Negative 07/07/2016 [facility] URINE AND STOOL UA Blood Large *ABN* (07/07/16 5:15 PM) Negative 07/07/2016 [facility] URINE AND STOOL UA WBC 25 0 - 5 07/07/2016 [facility] URINE AND STOOL UA Mucus Few /LPF None Seen /LPF 07/07/2016 [facility] URINE AND STOOL UA RBC >182 0 - 2 07/07/2016 [facility] URINE AND STOOL UA Sq Epi None Seen 07/07/2016 [facility] URINE AND STOOL UA Spec Grav 1.024 <=1.030 07/07/2016 [facility] URINE AND STOOL UA Ketones Negative mg/dL Negative mg/dL 07/07/[address] [facility] [address] URINE AND STOOL UA Bili Negative *NA* (07/07/16 5:15 PM) Negative 07/07/2016 [facility] URINE AND STOOL UA pH 6.0 5.0 - 8.0 07/07/2016 [facility] URINE AND STOOL UA Glucose 50 mg/dL Negative mg/dL 07/07/2016 [facility] URINE AND STOOL UA Protein 100 mg/dL Negative mg/dL 07/07/2016 [facility] URINE AND STOOL UA Turbidity Marked *ABN* (07/07/16 5:15 PM) Clear 07/07/2016 [facility] CARDIAC ENZYMES Troponin-I <0.02 0.00 - 0.40 06/20/2016 [facility] HEMATOLOGY D-Dimer <0.22 06/20/2016 [facility] CARDIAC ENZYMES CK MB Index 1.0 0.0 - 2.5 06/19/2016 [facility] CARDIAC ENZYMES Troponin-I <0.02 0.00 - 0.40 06/19/2016 [facility] CARDIAC ENZYMES Total CK 61 12 - 191 06/19/2016 [facility] CARDIAC ENZYMES CK MB 0.6 0.5 - 3.6 06/19/2016 [facility] CHEM PANEL A/G Ratio 0.9 0.7 - 1.6 06/19/2016 [facility] CHEM PANEL AST 18 0 - 37 06/19/2016 [facility] CHEM PANEL B/C Ratio 22 6 - 25 06/19/2016 [facility] CHEM PANEL Alk Phos 82 39 - 136 06/19/2016 [facility] CHEM PANEL Globulin 3.9 2.7 - 4.2 06/19/2016 [facility] CHEM PANEL Bili Total 0.2 0.2 - 1.3 06/19/2016 [facility] CHEM PANEL AGAP 10.7 10.0 - 20.0 06/19/2016 [facility] CHEM PANEL CO2 25 24 - 32 06/19/2016 [facility] CHEM PANEL Calcium Lvl 8.6 8.5 - 10.5 06/19/2016 [facility] CHEM PANEL Albumin Lvl 3.6 3.5 - 5.0 06/19/2016 [facility] CHEM PANEL ALT 34 0 - 65 06/19/2016 [facility] CHEM PANEL Total Protein 7.5 6.4 - 8.4 06/19/2016 [facility] CHEM PANEL Potassium Lvl 3.7 3.5 - 5.1 06/19/2016 [facility] CHEM PANEL Chloride Lvl 105 95 - 109 06/19/2016 [facility] CHEM PANEL eGFR 102 06/19/2016 Result Comment: [...] should be multiplied by the estimated BMI. [facility] CHEM PANEL Sodium Lvl 137 135 - 145 06/19/2016 [facility] CHEM PANEL Creatinine Lvl 0.78 0.50 - 1.40 06/19/2016 [facility] CHEM PANEL BUN 17 7 - 22 06/19/2016 [facility] CHEM PANEL Glucose Lvl 215 70 - 99 06/19/2016 [facility] ENDOCRINOLOGY S Preg Ne gative *NA* (06/18/16 10:14 PM) Negative 06/19/2016 [facility] HEMATOLOGY Eosinophils # 0.4 0.0 - 0.5 06/19/2016 [facility] HEMATOLOGY Monocytes # 0.8 0.0 - 0.8 06/19/2016 [facility] HEMATOLOGY Basophils 1.4 0.0 - 1.0 06/19/2016 [facility] HEMATOLOGY Lymphocytes # 3.4 1.0 - 5.5 06/19/2016 [facility] HEMATOLOGY Segs-Bands # 7.3 1.5 - 8.1 06/19/2016 [facility] HEMATOLOGY Basophils # 0.2 0.0 - 0.2 06/19/2016 [facility] HEMATOLOGY Eosinophils 3.0 0.0 - 4.0 06/19/2016 [facility] HEMATOLOGY Monocytes 6.3 2.0 - 12.0 06/19/2016 [facility] HEMATOLOGY Lymphocytes 28.2 20.0 - 40.0 06/19/2016 [facility] [facility] HEMATOLOG[facility] Segs 61.1 45.0 - 75.0 06/19/2016 [facility] HEMATOLOGY Hgb 11.9 12.0 - 16.0 06/19/2016 [facility] HEMATOLOGY RBC 4.71 4.20 - 5.40 06/19/2016 [facility] HEMATOLOGY WBC 11.9 3.7 - 10.4 06/19/2016 [facility] HEMATOLOGY MCH 25.4 27.0 - 31.0 06/19/2016 [facility] HEMATOLOGY MCV 79.6 80.0 - 98.0 06/19/2016 [facility] HEMATOLOGY Hct 37.4 36.0 - 48.0 06/19/2016 [facility] MCHC 31.9 32.0 - 36.0 06/19/2016 [facility] HEMATOLOGY RDW 14.7 11.5 - 14.5 06/19/2016 [facility] HEMATOLOGY Platelet 326 133 - 450 06/19/2016 [facility] HEMATOLOGY MPV 9.0 7.4 - 10.4 06/19/2016 [facility] URINE AND STOOL UA Bili Negative *NA* (06/18/16 8:33 PM) Negative 06/19/2016 [facility] URINE AND STOOL UA Leuk Est Negative (06/18/16 8:33 PM) Negative 06/19/2016 [facility] URINE AND STOOL UA Blood Small *ABN* (06/18/16 8:33 PM) Negative 06/19/2016 [facility] URINE AND STOOL UA Nitrite Negative (06/18/16 8:33 PM) Negative 06/19/2016 [facility] URINE AND STOOL UA Urobilinogen <=1.0 mg/dL 0.1 - 1.0 06/19/[address] [facility] [address] URINE AND STOOL UA WBC 1 0 - 5 06/19/2016 [facility] URINE AND STOOL UA RBC 1 0 - 2 06/19/2016 [facility] URINE AND STOOL UA Color Ltyellow 06/19/2016 [facility] URINE AND STOOL UA Sq Epi Occasional /LPF Few /LPF 06/19/2016 [facility] URINE AND STOOL UA Spec Grav 1.026 <=1.030 06/19/2016 [facility] URINE AND STOOL UA pH 6.0 5.0 - 8.0 06/19/2016 [facility] URINE AND STOOL UA Turbidity Clear (06/18/16 8:33 PM) Clear 06/19/2016 [facility] URINE AND STOOL UA Ketones Negative mg/dL Negative mg/dL 06/19/[address] [facility] [address] URINE AND STOOL UA Glucose 500 mg/dL Negative mg/dL 06/19/2016 [facility] URINE AND STOOL UA Protein Negative mg/dL Negative mg/dL 06/19/[address] [facility] [address] URINE AND STOOL UA Urobilinogen <=1.0 mg/dL 0.1 - 1.0 05/25/[address] [facility] [address] URINE AND STOOL UA Color Ltyellow 05/25/2016 [facility] URINE AND STOOL UA Bacteria Occasional /HPF None Seen /HPF 05/25/[address] [facility] [address] URINE AND STOOL UA RBC 2 0 - 2 05/25/2016 [facility] URINE AND STOOL UA WBC 13 0 - 5 05/25/2016 [facility] URINE AND STOOL UA Protein Negative mg/dL Negative mg/dL 05/25/[address] [facility] [address] URINE AND STOOL UA Ketones Trace mg/dL Negative mg/dL 05/25/[address] [facility] [address] URINE AND STOOL UA Bili Negative *NA* (05/25/16 8:38 AM) Negative 05/25/2016 [facility] URINE AND STOOL UA Glucose 150 mg/dL Negative mg/dL 05/25/2016 [facility] URINE AND STOOL UA Blood Negative (05/25/16 8:38 AM) Negative 05/25/2016 [facility] URINE AND STOOL UA Nitrite Negative (05/25/16 8:38 AM) Negative 05/25/2016 [facility] URINE AND STOOL UA Leuk Est Large *ABN* (05/25/16 8:38 AM) Negative 05/25/2016 [facility] URINE AND STOOL UA Sq Epi Moderate /LPF Few /LPF 05/25/2016 [facility] URINE AND STOOL UA pH 6.0 5.0 - 8.0 05/25/2016 [facility] URINE AND STOOL UA Spec Grav 1.014 <=1.030 05/25/2016 [facility] URINE AND STOOL UA Turbidity Clear (05/25/16 8:38 AM) Clear 05/25/2016 [facility] URINE CHEM U Preg Negat jesus (05/25/16 8:38 AM) Negative 05/25/2016 [facility] CHEM PANEL A/G Ratio 0.9 0.7 - 1.6 05/25/2016 [facility] CHEM PANEL Globulin 3.8 2.7 - 4.2 05/25/2016 [facility] CHEM PANEL B/C Ratio 16 6 - 25 05/25/2016 [facility] CHEM PANEL AGAP 11.1 10.0 - 20.0 05/25/2016 [facility] CHEM PANEL eGFR 87 05/25/2016 Result Comment: [...] by the estimated BMI. [facility] CHEM PANEL BUN 14 7 - 22 05/25/2016 [facility] CHEM PANEL Glucose Lvl 225 70 - 99 05/25/2016 [facility] CHEM PANEL Total Protein 7.1 6.4 - 8.4 05/25/2016 [facility] CHEM PANEL CO2 25 24 - 32 05/25/2016 [facility] CHEM PANEL Calcium Lvl 8.5 8.5 - 10.5 05/25/2016 [facility] CHEM PANEL Chloride Lvl 102 95 - 109 05/25/2016 [facility] CHEM PANEL Potassium Lvl 4.1 3.5 - 5.1 05/25/2016 [facility] CHEM PANEL Sodium Lvl 134 135 - 145 05/25/2016 [facility] CHEM PANEL Creatinine Lvl 0.89 0.50 - 1.40 05/25/2016 [facility] CHEM PANEL Alk Phos 85 39 - 136 05/25/2016 [facility] CHEM PANEL AST 14 0 - 37 05/25/2016 [facility] CHEM PANEL ALT 27 0 - 65 05/25/2016 [facility] CHEM PANEL Albumin Lvl 3.3 3.5 - 5.0 05/25/2016 [facility] CHEM PANEL Bili Total 0.2 0.2 - 1.3 05/25/2016 [facility] HEMATOLOGY Basophils # 0.1 0.0 - 0.2 05/25/2016 [facility] HEMATOLOGY Eosinophils # 0.3 0.0 - 0.5 05/25/2016 [facility] HEMATOLOGY Monocytes # 0.7 0.0 - 0.8 05/25/2016 [facility] HEMATOLOGY Lymphocytes # 3.1 1.0 - 5.5 05/25/2016 [facility] HEMATOLOGY Segs-Bands # 5.8 1.5 - 8.1 05/25/2016 [facility] HEMATOLOGY Eosinophils 3.2 0.0 - 4.0 05/25/2016 [facility] HEMATOLOGY Basophils 0.8 0.0 - 1.0 05/25/2016 [facility] HEMATOLOGY Lymphocytes 31.1 20.0 - 40.0 05/25/2016 [facility] HEMATOLOGY Monocytes 6.5 2.0 - 12.0 05/25/2016 [facility] HEMATOLOGY Segs 58.4 45.0 - 75.0 05/25/2016 [facility] HEMATOLOGY Platelet 296 133 - 450 05/25/2016 [facility] HEMATOLOGY MPV 9.0 7.4 - 10.4 05/25/2016 [facility] HEMATOLOGY RDW 14.5 11.5 - 14.5 05/25/2016 [facility] HEMATOLOGY MCHC 32.4 32.0 - 36.0 05/25/2016 [facility] HEMATOLOGY MCH 25.6 27.0 - 31.0 05/25/2016 [facility] HEMATOLOGY MCV 79.0 80.0 - 98.0 05/25/2016 [facility] HEMATOLOGY Hct 37.8 36.0 - 48.0 05/25/2016 [facility] HEMATOLOGY Hgb 12.3 12.0 - 16.0 05/25/2016 [facility] HEMATOLOGY RBC 4.79 4.20 - 5.40 05/25/2016 [facility] HEMATOLOGY WBC 10.0 3.7 - 10.4 05/25/2016 [facility] CARDIAC ENZYMES Total CK 65 12 - 191 04/20/2016 [facility] CHEM PANEL Bili Total 0.4 0.2 - 1.3 04/20/2016 [facility] CHEM PANEL eGFR 106 04/20/2016 Result Comment: [...] should be multiplied by the estimated BMI. [facility] CHEM PANEL Glucose Lvl 166 70 - 99 04/20/2016 [facility] CHEM PANEL Creatinine Lvl 0.75 0.50 - 1.40 04/20/2016 [facility] CHEM PANEL BUN 14 7 - 22 04/20/2016 [facility] CHEM PANEL Sodium Lvl 136 135 - 145 04/20/2016 [facility] CHEM PANEL CO2 25 24 - 32 04/20/2016 [facility] CHEM PANEL Chloride Lvl 102 95 - 109 04/20/2016 [facility] CHEM PANEL Potassium Lvl 3.7 3.5 - 5.1 04/20/2016 [facility] CHEM PANEL Calcium Lvl 8.7 8.5 - 10.5 04/20/2016 [facility] CHEM PANEL Total Protein 7.3 6.4 - 8.4 04/20/2016 [facility] CHEM PANEL Alk Phos 73 39 - 136 04/20/2016 [facility] CHEM PANEL AST 29 0 - 37 04/20/2016 [facility] CHEM PANEL ALT 35 0 - 65 04/20/2016 [facility] CHEM PANEL Albumin Lvl 3.4 3.5 - 5.0 04/20/2016 [facility] CHEM PANEL A/G Ratio 0.9 0.7 - 1.6 04/20/2016 [facility] CHEM PANEL Globulin 3.9 2.7 - 4.2 04/20/2016 [facility] CHEM PANEL B/C Ratio 19 6 - 25 04/20/2016 [facility] CHEM PANEL AGAP 12.7 10.0 - 20.0 04/20/2016 [facility] HEMATOLOGY Monocytes # 0.7 0.0 - 0.8 04/20/2016 [facility] HEMATOLOGY Eosinophils # 0.3 0.0 - 0.5 04/20/2016 [facility] HEMATOLOGY Segs 58.6 45.0 - 75.0 04/20/2016 [facility] HEMATOLOGY Basophils 0.2 0.0 - 1.0 04/20/2016 [facility] HEMATOLOGY Lymphocytes 31.7 20.0 - 40.0 04/20/2016 [facility] HEMATOLOGY Lymphocytes # 3.4 1.0 - 5.5 04/20/2016 [facility] HEMATOLOGY Segs-Bands # 6.2 1.5 - 8.1 04/20/2016 [facility] HEMATOLOGY Eosinophils 2.9 0.0 - 4.0 04/20/2016 [facility] HEMATOLOGY Monocytes 6.6 2.0 - 12.0 04/20/2016 [facility] HEMATOLOGY RBC 4.64 4.20 - 5.40 04/20/2016 [facility] HEMATOLOGY Hgb 12.0 12.0 - 16.0 04/20/2016 [facility] HEMATOLOGY WBC 10.6 3.7 - 10.4 04/20/2016 [facility] HEMATOLOGY Hct 37.1 36.0 - 48.0 04/20/2016 [facility] HEMATOLOGY MCV 80.1 80.0 - 98.0 04/20/2016 [facility] HEMATOLOGY MCH 25.8 27.0 - 31.0 04/20/2016 [facility] HEMATOLOGY MCHC 32.2 32.0 - 36.0 04/20/2016 [facility] HEMATOLOGY RDW 14.8 11.5 - 14.5 04/20/2016 [facility] HEMATOLOGY Platelet 319 133 - 450 04/20/2016 [facility] HEMATOLOGY MPV 8.9 7.4 - 10.4 04/20/2016 [facility] URINE AND STOOL UA Color Ltyellow 04/20/2016 [facility] URINE AND STOOL UA Urobilinogen <=1.0 mg/dL 0.1 - 1.0 04/20/2016 [facility] URINE AND STOOL UA Sq Epi Occasional /LPF Few /LPF 04/20/2016 [facility] URINE AND STOOL UA Leuk Est Large *ABN* (04/20/16 2:43 AM) Negative 04/20/2016 [facility] URINE AND STOOL UA Bacteria Occasional /HPF None Seen /HPF 04/20/2016 [facility] URINE AND STOOL UA RBC 6 0 - 2 04/20/2016 [facility] URINE AND STOOL UA WBC 49 0 - 5 04/20/2016 [facility] URINE AND STOOL UA Glucose Negative mg/dL Negative mg/dL 04/20/2016 [facility] URINE AND STOOL UA Nitrite Negative (04/20/16 2:43 AM) Negative 04/20/2016 [facility] URINE AND STOOL UA Blood Small *ABN* (04/20/16 2:43 AM) Negative 04/20/2016 [facility] URINE AND STOOL UA Bili Negative *NA* (04/20/16 2:43 AM) Negative 04/20/2016 [facility] URINE AND STOOL UA Ketones Negative mg/dL Negative mg/dL 04/20/2016 [facility] URINE AND STOOL UA Spec Grav 1.009 <=1.030 04/20/2016 [facility] URINE AND STOOL UA Turbidity Clear (04/20/16 2:43 AM) Clear 04/20/2016 [facility] URINE AND STOOL UA pH 6.0 5.0 - 8.0 04/20/2016 [facility] URINE AND STOOL UA Protein Negative mg/dL Negative mg/dL 04/20/2016 [facility] URINE CHEM U Preg Negat jesus (04/20/16 2:43 AM) Negative 04/20/2016 [facility] CARDIAC ENZYMES Total CK 86 12 - 191 04/19/2016 [facility] CHEM PANEL BUN 14 7 - 22 04/19/2016 [facility] CHEM PANEL Glucose Lvl 186 70 - 99 04/19/2016 [facility] CHEM PANEL Albumin Lvl 3.6 3.5 - 5.0 04/19/2016 [facility] CHEM PANEL Total Protein 7.8 6.4 - 8.4 04/19/2016 [facility] CHEM PANEL Calcium Lvl 8.4 8.5 - 10.5 04/19/2016 [facility] CHEM PANEL CO2 22 24 - 32 04/19/2016 [facility] CHEM PANEL Chloride Lvl 106 95 - 109 04/19/2016 [facility] CHEM PANEL Potassium Lvl 3.5 3.5 - 5.1 04/19/2016 [facility] CHEM PANEL Sodium Lvl 136 135 - 145 04/19/2016 [facility] CHEM PANEL Creatinine Lvl 0.93 0.50 - 1.40 04/19/2016 [facility] CHEM PANEL ALT 37 0 - 65 04/19/2016 [facility] CHEM PANEL Alk Phos 83 39 - 136 04/19/2016 [facility] CHEM PANEL Bili Total 0.4 0.2 - 1.3 04/19/2016 [facility] CHEM PANEL AST 30 0 - 37 04/19/2016 [facility] CHEM PANEL eGFR 82 04/19/2016 Result Comment: [...] by the estimated BMI. [facility] CHEM PANEL Globulin 4.2 2.7 - 4.2 04/19/2016 [facility] CHEM PANEL B/C Ratio 15 6 - 25 04/19/2016 [facility] CHEM PANEL A/G Ratio 0.9 0.7 - 1.6 04/19/2016 [facility] CHEM PANEL AGAP 11.5 10.0 - 20.0 04/19/2016 [facility] DRUG SCREEN UDS Note See Note *NA* (04/18/16 8:18 PM) 04/19/2016 [facility] DRUG SCREEN U Opiate Scr Nega tive *NA* (04/18/16 8:18 PM) Negative 04/19/2016 [facility] DRUG SCREEN U Cannab Scr Nega tive *NA* (04/18/16 8:18 PM) Negative 04/19/2016 [facility] DRUG SCREEN U Cocaine Scr Nega tive *NA* (04/18/16 8:18 PM) Negative 04/19/2016 [facility] DRUG SCREEN U Benzodia Scr Nega tive *NA* (04/18/16 8:18 PM) Negative 04/19/2016 [facility] DRUG SCREEN U Amph Scr Nega tive *NA* (04/18/16 8:18 PM) Negative 04/19/2016 [facility] DRUG SCREEN U Phencyc Scr Nega tive *NA* (04/18/16 8:18 PM) Negative 04/19/2016 [facility] DRUG SCREEN U Jocelyn Scr Nega tive *NA* (04/18/16 8:18 PM) Negative 04/19/2016 [facility] ENDOCRINOLOGY S Preg Ne gative *NA* (04/18/16 8:18 PM) Negative 04/19/2016 [facility] HEMATOLOGY Basophils 0.7 0.0 - 1.0 04/19/2016 [facility] HEMATOLOGY Segs 73.0 45.0 - 75.0 04/19/2016 [facility] HEMATOLOGY Eosinophils 1.3 0.0 - 4.0 04/19/2016 [facility] HEMATOLOGY Monocytes 4.6 2.0 - 12.0 04/19/2016 [facility] HEMATOLOGY Lymphocytes 20.4 20.0 - 40.0 04/19/2016 [facility] HEMATOLOGY Eosinophils # 0.2 0.0 - 0.5 04/19/2016 [facility] HEMATOLOGY Basophils # 0.1 0.0 - 0.2 04/19/2016 [facility] HEMATOLOGY Segs-Bands # 9.1 1.5 - 8.1 04/19/2016 [facility] HEMATOLOGY Monocytes # 0.6 0.0 - 0.8 04/19/2016 [facility] HEMATOLOGY Lymphocytes # 2.5 1.0 - 5.5 04/19/2016 [facility] HEMATOLOGY MCHC 32.6 32.0 - 36.0 04/19/2016 [facility] HEMATOLOGY RDW 14.9 11.5 - 14.5 04/19/2016 [facility] HEMATOLOGY Platelet 339 133 - 450 04/19/2016 [facility] HEMATOLOGY MPV 8.9 7.4 - 10.4 04/19/2016 [facility] HEMATOLOGY RBC 4.77 4.20 - 5.40 04/19/2016 [facility] HEMATOLOGY Hct 37.8 36.0 - 48.0 04/19/2016 [facility] HEMATOLOGY Hgb 12.3 12.0 - 16.0 04/19/2016 [facility] HEMATOLOGY MCV 79.3 80.0 - 98.0 04/19/2016 [facility] HEMATOLOGY MCH 25.8 27.0 - 31.0 04/19/2016 [facility] HEMATOLOGY WBC 12.4 3.7 - 10.4 04/19/2016 [facility] URINE AND STOOL UA Urobilinogen <=1.0 mg/dL 0.1 - 1.0 04/19/2016 [facility] URINE AND STOOL UA Color Colorless 04/19/2016 [facility] URINE AND STOOL UA WBC 2 0 - 5 04/19/2016 [facility] URINE AND STOOL UA RBC 1 0 - 2 04/19/2016 [facility] URINE AND STOOL UA pH 6.0 5.0 - 8.0 04/19/2016 [facility] URINE AND STOOL UA Spec Grav 1.003 <=1.030 04/19/2016 [facility] URINE AND STOOL UA Sq Epi Occasional /LPF Few /LPF 04/19/2016 [facility] URINE AND STOOL UA Nitrite Negative (04/18/16 8:18 PM) Negative 04/19/2016 [facility] URINE AND STOOL UA Turbidity Clear (04/18/16 8:18 PM) Clear 04/19/2016 [facility] URINE AND STOOL UA Bili Negative *NA* (04/18/16 8:18 PM) Negative 04/19/2016 [facility] URINE AND STOOL UA Glucose Negative mg/dL Negative mg/dL 04/19/2016 [facility] URINE AND STOOL UA Ketones Negative mg/dL Negative mg/dL 04/19/2016 [facility] URINE AND STOOL UA Blood Small *ABN* (04/18/16 8:18 PM) Negative 04/19/2016 [facility] URINE AND STOOL UA Protein Negative mg/dL Negative mg/dL 04/19/2016 [facility] URINE AND STOOL UA Leuk Est Trace *ABN* (04/18/16 8:18 PM) Negative 04/19/2016 [facility] CHEM PANEL Lipase Lvl 143 73 - 393 03/21/2016 [facility] CHEM PANEL B/C Ratio 14 6 - 25 03/21/2016 [facility] CHEM PANEL Globulin 4.4 2.0 - 4.0 03/21/2016 [facility] CHEM PANEL A/G Ratio 0.8 0.7 - 1.6 03/21/2016 [facility] CHEM PANEL AGAP 13.8 10.0 - 20.0 03/21/2016 [facility] CHEM PANEL eGFR 107 03/21/2016 Result Comment: [...] should be multiplied by the estimated BMI. [facility] CHEM PANEL Total Protein 8.0 6.4 - 8.4 03/21/2016 [facility] CHEM PANEL Albumin Lvl 3.6 3.5 - 5.0 03/21/2016 [facility] CHEM PANEL CO2 26 24 - 32 03/21/2016 [facility] CHEM PANEL Calcium Lvl 8.6 8.5 - 10.5 03/21/2016 [facility] CHEM PANEL Chloride Lvl 102 95 - 109 03/21/2016 [facility] CHEM PANEL Creatinine Lvl 0.74 0.50 - 1.40 03/21/2016 [facility] CHEM PANEL Sodium Lvl 138 135 - 145 03/21/2016 [facility] CHEM PANEL BUN 10 7 - 22 03/21/2016 [facility] CHEM PANEL Potassium Lvl 3.8 3.5 - 5.1 03/21/2016 [facility] CHEM PANEL Alk Phos 83 39 - 136 03/21/2016 [facility] CHEM PANEL Glucose Lvl 152 70 - 99 03/21/2016 [facility] CHEM PANEL AST 33 0 - 37 03/21/2016 [facility] CHEM PANEL Bili Total 0.4 0.2 - 1.3 03/21/2016 [facility] CHEM PANEL ALT 43 0 - 65 03/21/2016 [facility] HEMATOLOGY Basophils # 0.1 0.0 - 0.2 03/21/2016 [facility] HEMATOLOGY Eosinophils # 0.3 0.0 - 0.5 03/21/2016 [facility] HEMATOLOGY Monocytes # 0.5 0.0 - 0.8 03/21/2016 [facility] HEMATOLOGY Eosinophils 2.6 0.0 - 4.0 03/21/2016 [facility] HEMATOLOGY Monocytes 4.6 2.0 - 12.0 03/21/2016 [facility] HEMATOLOGY Lymphocytes # 2.8 1.0 - 5.5 03/21/2016 [facility] Segs-Bands # 6.3 1.5 - 8.1 03/21/2016 [facility] Basophils 0.5 0.0 - 1.0 03/21/2016 [facility] Lymphocytes 28.6 20.0 - 40.0 03/21/2016 [facility] Segs 63.7 45.0 - 75.0 03/21/2016 [facility] MPV 9.0 7.4 - 10.4 03/21/2016 [facility] Platelet 342 133 - 450 03/21/2016 [facility] Hgb 13.1 12.0 - 16.0 03/21/2016 [facility] RBC 5.07 4.20 - 5.40 03/21/2016 [facility] Hct 40.6 36.0 - 48.0 03/21/2016 [facility] MCH 25.8 27.0 - 31.0 03/21/2016 [facility] MCV 80.0 80.0 - 98.0 03/21/2016 [facility] RDW 15.2 11.5 - 14.5 03/21/2016 [facility] MCHC 32.3 32.0 - 36.0 03/21/2016 [facility] WBC 9.9 3.7 - 10.4 03/21/2016 [facility] URINE AND STOOL UA Urobilinogen <=1.0 mg/dL 0.1 - 1.0 03/21/2016 [facility] URINE AND STOOL UA Ketones Negative mg/dL Negative mg/dL 03/21/[address] [facility] [address] URINE AND STOOL UA WBC 173 0 - 5 03/21/2016 [facility] URINE AND STOOL UA RBC 25 0 - 2 03/21/2016 [facility] URINE AND STOOL UA Sq Epi Many /LPF Few /LPF 03/21/2016 [facility] URINE AND STOOL UA Leuk Est Large *ABN* (03/21/16 4:54 PM) Negative 03/21/2016 [facility] URINE AND STOOL UA Nitrite Negative (03/21/16 4:54 PM) Negative 03/21/2016 [facility] URINE AND STOOL UA Blood Moderate *ABN* (03/21/16 4:54 PM) Negative 03/21/2016 [facility] URINE AND STOOL UA Mucus Few /LPF None Seen /LPF 03/21/2016 [facility] URINE AND STOOL UA Bili Negative *NA* (03/21/16 4:54 PM) Negative 03/21/2016 [facility] URINE AND STOOL UA Color Yellow *NA* (03/21/16 4:54 PM) Yellow 03/21/2016 [facility] URINE AND STOOL UA Glucose Negative mg/dL Negative mg/dL 03/21/2016 [facility] URINE AND STOOL UA Turbidity Marked *ABN* (03/21/16 4:54 PM) Clear 03/21/2016 [facility] URINE AND STOOL UA Spec Grav 1.024 <=1.030 03/21/2016 [facility] URINE AND STOOL UA pH 5.0 5.0 - 8.0 03/21/2016 [facility] URINE AND STOOL UA Protein 30 mg/dL Negative mg/dL 03/21/2016 [facility] URINE CHEM U Preg Negat jesus (03/21/16 4:54 PM) Negative 03/21/2016 [facility] CHEM PANEL AST 11 0 - 37 12/05/2015 [facility] CHEM PANEL CO2 27 24 - 32 12/05/2015 [facility] CHEM PANEL AGAP 9.8 10.0 - 20.0 12/05/2015 [facility] CHEM PANEL Calcium Lvl 7.7 8.5 - 10.5 12/05/2015 [facility] CHEM PANEL ALT 26 0 - 65 12/05/2015 [facility] CHEM PANEL A/G Ratio 0.9 0.7 - 1.6 12/05/2015 [facility] CHEM PANEL Albumin Lvl 2.9 3.5 - 5.0 12/05/2015 [facility] CHEM PANEL Globulin 3.1 2.0 - 4.0 12/05/2015 [facility] CHEM PANEL eGFR 116 12/05/2015 Result Comment: [...] should be multiplied by the estimated BMI. [facility] CHEM PANEL Alk Phos 57 39 - 136 12/05/2015 [facility] CHEM PANEL Bili Total 0.3 0.2 - 1.3 12/05/2015 [facility] CHEM PANEL B/C Ratio 16 6 - 25 12/05/2015 [facility] CHEM PANEL Total Protein 6.0 6.4 - 8.4 12/05/2015 [facility] CHEM PANEL Chloride Lvl 109 95 - 109 12/05/2015 [facility] [facility] CHEM PANEL Creatinine Lvl 0.69 0.50 - 1.40 12/05/2015 [facility] CHEM PANEL Potassium Lvl 3.8 3.5 - 5.1 12/05/2015 [facility] CHEM PANEL BUN 11 7 - 22 12/05/2015 [facility] CHEM PANEL Sodium Lvl 142 135 - 145 12/05/2015 [facility] CHEM PANEL Glucose Lvl 155 70 - 99 12/05/2015 [facility] HEMATOLOGY MPV 8.9 7.4 - 10.4 12/05/2015 [facility] HEMATOLOGY Platelet 285 133 - 450 12/05/2015 [facility] HEMATOLOGY MCHC 31.8 32.0 - 36.0 12/05/2015 [facility] HEMATOLOGY RDW 14.8 11.5 - 14.5 12/05/2015 [facility] HEMATOLOGY Hct 32.3 36.0 - 48.0 12/05/2015 [facility] HEMATOLOGY MCH 25.5 27.0 - 31.0 12/05/2015 [facility] HEMATOLOGY MCV 80.2 80.0 - 98.0 12/05/2015 [facility] WBC 11.4 3.7 - 10.4 12/05/2015 [facility] RBC 4.03 4.20 - 5.40 12/05/2015 [facility] Hgb 10.3 12.0 - 16.0 12/05/2015 [facility] Lymphocytes 31.4 20.0 - 40.0 12/05/2015 [facility] Monocytes # 0.7 0.0 - 0.8 12/05/2015 [facility] Lymphocytes # 3.6 1.0 - 5.5 12/05/2015 [facility] Segs-Bands # 6.9 1.5 - 8.1 12/05/2015 [facility] Basophils 0.5 0.0 - 1.0 12/05/2015 [facility] Monocytes 6.5 2.0 - 12.0 12/05/2015 [facility] Basophils # 0.1 0.0 - 0.2 12/05/2015 [facility] Eosinophils # 0.2 0.0 - 0.5 12/05/2015 [facility] Segs 60.0 45.0 - 75.0 12/05/2015 [facility] Eosinophils 1.6 0.0 - 4.0 12/05/2015 [facility] CHEM PANEL eGFR 119 12/04/2015 Result Comment: [...] should be multiplied by the estimated BMI. [facility] CHEM PANEL Total Protein 6.7 6.4 - 8.4 12/04/2015 [facility] CHEM PANEL AGAP 12.1 10.0 - 20.0 12/04/2015 [facility] CHEM PANEL CO2 26 24 - 32 12/04/2015 [facility] CHEM PANEL B/C Ratio 12 6 - 25 12/04/2015 [facility] CHEM PANEL Calcium Lvl 8.1 8.5 - 10.5 12/04/2015 [facility] CHEM PANEL Chloride Lvl 103 95 - 109 12/04/2015 [facility] CHEM PANEL Sodium Lvl 137 135 - 145 12/04/2015 [facility] CHEM PANEL Creatinine Lvl 0.64 0.50 - 1.40 12/04/2015 [facility] CHEM PANEL BUN 8 7 - 22 12/04/2015 [facility] CHEM PANEL Potassium Lvl 4.1 3.5 - 5.1 12/04/2015 [facility] CHEM PANEL Bili Total 0.7 0.2 - 1.3 12/04/2015 [facility] CHEM PANEL Alk Phos 68 39 - 136 12/04/2015 [facility] CHEM PANEL Albumin Lvl 3.0 3.5 - 5.0 12/04/2015 [facility] CHEM PANEL A/G Ratio 0.8 0.7 - 1.6 12/04/2015 [facility] CHEM PANEL Globulin 3.7 2.0 - 4.0 12/04/2015 [facility] CHEM PANEL AST 22 0 - 37 12/04/2015 [facility] CHEM PANEL ALT 35 0 - 65 12/04/2015 [facility] CHEM PANEL Glucose Lvl 163 70 - 99 12/04/2015 [facility] HEMATOLOGY MCH 25.4 27.0 - 31.0 12/04/2015 [facility] HEMATOLOGY MCV 79.7 80.0 - 98.0 12/04/2015 [facility] HEMATOLOGY MCHC 31.9 32.0 - 36.0 12/04/2015 [facility] HEMATOLOGY Hct 35.0 36.0 - 48.0 12/04/2015 [facility] HEMATOLOGY MPV 8.8 7.4 - 10.4 12/04/2015 [facility] HEMATOLOGY Hgb 11.1 12.0 - 16.0 12/04/2015 [facility] HEMATOLOGY Platelet 331 133 - 450 12/04/2015 [facility] HEMATOLOGY RDW 14.9 11.5 - 14.5 12/04/2015 [facility] HEMATOLOGY RBC 4.39 4.20 - 5.40 12/04/2015 [facility] HEMATOLOGY WBC 16.6 3.7 - 10.4 12/04/2015 [facility] HEMATOLOGY Eosinophils 0.2 0.0 - 4.0 12/04/2015 [facility] HEMATOLOGY Basophils 0.3 0.0 - 1.0 12/04/2015 [facility] HEMATOLOGY Segs-Bands # 13.8 1.5 - 8.1 12/04/2015 [facility] HEMATOLOGY Monocytes # 0.8 0.0 - 0.8 12/04/2015 [facility] HEMATOLOGY Lymphocytes # 1.9 1.0 - 5.5 12/04/2015 [facility] HEMATOLOGY Monocytes 4.8 2.0 - 12.0 12/04/2015 [facility] HEMATOLOGY Segs 83.5 45.0 - 75.0 12/04/2015 [facility] Lymphocytes 11.2 20.0 - 40.0 12/04/2015 [facility] ANEMIA STUDY Vitamin B12 Lvl 443 254 - 1320 12/04/2015 [facility] ANEMIA STUDY Iron 49 30 - 160 12/04/2015 [facility] ANEMIA STUDY % Satur Fe 13 12 - 57 12/04/2015 [facility] ANEMIA STUDY TIBC 382 228 - 428 12/04/2015 [facility] ANEMIA STUDY UIBC 333 110 - 370 12/04/2015 [facility] CHEM PANEL Magnesium Lvl 2.0 1.8 - 2.4 12/03/2015 [facility] CHEM PANEL Phosphorus 2.5 2.5 - 4.5 12/03/2015 [facility] ELECTROLYTES AGAP 11.6 10.0 - 20.0 12/03/2015 [facility] ELECTROLYTES Globulin 3.7 2.0 - 4.0 12/03/2015 [facility] ELECTROLYTES B/C Ratio 16 6 - 25 12/03/2015 [facility] ELECTROLYTES A/G Ratio 0.9 0.7 - 1.6 12/03/2015 [facility] ELECTROLYTES eGFR 121 12/03/2015 Result Comment: The [...] should be multiplied by the estimated BMI. [facility] ELECTROLYTES Bili Total 0.4 0.2 - 1.3 12/03/2015 [facility] ELECTROLYTES Alk Phos 72 39 - 136 12/03/2015 [facility] ELECTROLYTES CO2 26 24 - 32 12/03/2015 [facility] ELECTROLYTES Chloride Lvl 105 95 - 109 12/03/2015 [facility] ELECTROLYTES ALT 30 0 - 65 12/03/2015 [facility] ELECTROLYTES AST 13 0 - 37 12/03/2015 [facility] ELECTROLYTES Albumin Lvl 3.3 3.5 - 5.0 12/03/2015 [facility] ELECTROLYTES Total Protein 7.0 6.4 - 8.4 12/03/2015 [facility] ELECTROLYTES Calcium Lvl 8.0 8.5 - 10.5 12/03/2015 [facility] ELECTROLYTES BUN 10 7 - 22 12/03/2015 [facility] ELECTROLYTES Glucose Lvl 153 70 - 99 12/03/2015 [facility] ELECTROLYTES Creatinine Lvl 0.6 2 0.50 - 1.40 12/03/2015 [facility] ELECTROLYTES Potassium Lvl 3.6 3.5 - 5.1 12/03/2015 [facility] ELECTROLYTES Sodium Lvl 139 135 - 145 12/03/2015 [facility] HEMATOLOGY Lymphocytes # 3.1 1.0 - 5.5 12/03/2015 [facility] HEMATOLOGY Segs 67.0 45.0 - 75.0 12/03/2015 [facility] HEMATOLOGY Basophils 0.7 0.0 - 1.0 12/03/2015 [facility] HEMATOLOGY Segs-Bands # 8.4 1.5 - 8.1 12/03/2015 [facility] HEMATOLOGY Eosinophils 2.6 0.0 - 4.0 12/03/2015 [facility] HEMATOLOGY Monocytes 5.0 2.0 - 12.0 12/03/2015 [facility] HEMATOLOGY Lymphocytes 24.7 20.0 - 40.0 12/03/2015 [facility] HEMATOLOGY Eosinophils # 0.3 0.0 - 0.5 12/03/2015 [facility] HEMATOLOGY Basophils # 0.1 0.0 - 0.2 12/03/2015 [facility] HEMATOLOGY Monocytes # 0.6 0.0 - 0.8 12/03/2015 [facility] HEMATOLOGY RDW 14.9 11.5 - 14.5 12/03/2015 [facility] HEMATOLOGY Platelet 320 133 - 450 12/03/2015 [facility] HEMATOLOGY MPV 8.8 7.4 - 10.4 12/03/2015 [facility] HEMATOLOGY WBC 12.5 3.7 - 10.4 12/03/2015 [facility] HEMATOLOGY RBC 4.79 4.20 - 5.40 12/03/2015 [facility] HEMATOLOGY MCH 25.4 27.0 - 31.0 12/03/2015 [facility] HEMATOLOGY MCHC 31.7 32.0 - 36.0 12/03/2015 [facility] HEMATOLOGY MCV 80.2 80.0 - 98.0 12/03/2015 [facility] HEMATOLOGY Hgb 12.1 12.0 - 16.0 12/03/2015 [facility] HEMATOLOGY Hct 38.4 36.0 - 48.0 12/03/2015 [facility] CHEM PANEL Lipase Lvl 163 73 - 393 12/02/2015 [facility] HEMATOLOGY Eosinophils # 0.2 0.0 - 0.5 12/02/2015 [facility] HEMATOLOGY Basophils # 0.1 0.0 - 0.2 12/02/2015 [facility] URINE AND STOOL UA Color Ltyellow 12/02/2015 [facility] URINE AND STOOL UA Urobilinogen <=1.0 mg/dL 0.1 - 1.0 12/02/[address] [facility] [address] URINE AND STOOL UA Sq Epi Many /LPF Few /LPF 12/02/2015 [facility] URINE AND STOOL UA WBC 2 0 - 5 12/02/2015 [facility] URINE AND STOOL UA Leuk Est Trace *ABN* (12/02/15 3:35 PM) Negative 12/02/2015 [facility] URINE AND STOOL UA Blood Moderate *ABN* (12/02/15 3:35 PM) Negative 12/02/2015 [facility] URINE AND STOOL UA Nitrite Negative (12/02/15 3:35 PM) Negative 12/02/2015 [facility] URINE AND STOOL UA RBC 3 0 - 2 12/02/2015 [facility] URINE AND STOOL UA Mucus Few /LPF None Seen /LPF 12/02/2015 [facility] URINE AND STOOL UA Turbidity Slight *ABN* (12/02/15 3:35 PM) Clear 12/02/2015 [facility] URINE AND STOOL UA Ketones Negative mg/dL Negative mg/dL 12/02/[address] [facility] [address] URINE AND STOOL UA Bili Negative *NA* (12/02/15 3:35 PM) Negative 12/02/2015 [facility] URINE AND STOOL UA pH 5.0 5.0 - 8.0 12/02/2015 [facility] URINE AND STOOL UA Spec Grav 1.020 <=1.030 12/02/2015 [facility] URINE AND STOOL UA Glucose Negative mg/dL Negative mg/dL 12/02/2015 [facility] URINE AND STOOL UA Protein Negative mg/dL Negative mg/dL 12/02/2015 [facility] URINE CHEM U Preg Negat jesus (12/02/15 3:35 PM) Negative 12/02/2015 [facility] CHEM PANEL Lipase Lvl 213 73 - 393 11/10/2015 [facility] CHEM PANEL Amylase Lvl 25 25 - 115 11/10/2015 [facility] CHEM PANEL A/G Ratio 0.9 0.7 - 1.6 11/10/2015 [facility] CHEM PANEL Globulin 3.8 2.0 - 4.0 11/10/2015 [facility] CHEM PANEL B/C Ratio 13 6 - 25 11/10/2015 [facility] CHEM PANEL AGAP 10.0 10.0 - 20.0 11/10/2015 [facility] CHEM PANEL eGFR 60 11/10/2015 Result Comment: [...] should be multiplied by the estimated BMI. [facility] CHEM PANEL ALT 25 0 - 65 11/10/2015 [facility] CHEM PANEL Bili Total 0.1 0.2 - 1.3 11/10/2015 [facility] CHEM PANEL Alk Phos 83 39 - 136 11/10/2015 [facility] CHEM PANEL AST 10 0 - 37 11/10/2015 [facility] CHEM PANEL Sodium Lvl 139 135 - 145 11/10/2015 [facility] CHEM PANEL Glucose Lvl 202 70 - 99 11/10/2015 [facility] CHEM PANEL Creatinine Lvl 1.21 0.50 - 1.40 11/10/2015 [facility] CHEM PANEL BUN 16 7 - 22 11/10/2015 [facility] CHEM PANEL Potassium Lvl 4.0 3.5 - 5.1 11/10/2015 [facility] CHEM PANEL CO2 28 24 - 32 11/10/2015 [facility] CHEM PANEL Chloride Lvl 105 95 - 109 11/10/2015 [facility] CHEM PANEL Total Protein 7.1 6.4 - 8.4 11/10/2015 [facility] CHEM PANEL Calcium Lvl 8.2 8.5 - 10.5 11/10/2015 [facility] CHEM PANEL Albumin Lvl 3.3 3.5 - 5.0 11/10/2015 [facility] HEMATOLOGY RBC 4.60 4.20 - 5.40 11/10/2015 [facility] HEMATOLOGY WBC 12.6 3.7 - 10.4 11/10/2015 [facility] HEMATOLOGY RDW 14.7 11.5 - 14.5 11/10/2015 [facility] HEMATOLOGY MCH 25.3 27.0 - 31.0 11/10/2015 [facility] HEMATOLOGY MCV 79.7 80.0 - 98.0 11/10/2015 [facility] HEMATOLOGY Hct 36.7 36.0 - 48.0 11/10/2015 [facility] MCHC 31.8 32.0 - 36.0 11/10/2015 [facility] HEMATOLOGY Hgb 11.7 12.0 - 16.0 11/10/2015 [facility] HEMATOLOGY MPV 8.9 7.4 - 10.4 11/10/2015 [facility] HEMATOLOGY Platelet 304 133 - 450 11/10/2015 [facility] HEMATOLOGY Basophils 0.6 0.0 - 1.0 11/10/2015 [facility] HEMATOLOGY Segs-Bands # 7.9 1.5 - 8.1 11/10/2015 [facility] HEMATOLOGY Monocytes 5.9 2.0 - 12.0 11/10/2015 [facility] HEMATOLOGY Eosinophils 3.0 0.0 - 4.0 11/10/2015 [facility] HEMATOLOGY Eosinophils # 0.4 0.0 - 0.5 11/10/2015 [facility] HEMATOLOGY Monocytes # 0.7 0.0 - 0.8 11/10/2015 [facility] HEMATOLOGY Lymphocytes # 3.4 1.0 - 5.5 11/10/2015 [facility] HEMATOLOGY Basophils # 0.1 0.0 - 0.2 11/10/2015 [facility] HEMATOLOGY Segs 63.2 45.0 - 75.0 11/10/2015 [facility] HEMATOLOGY Lymphocytes 27.3 20.0 - 40.0 11/10/2015 [facility] URINE AND STOOL UA Urobilinogen <=1.0 mg/dL 0.1 - 1.0 11/10/[address] [facility] [address] URINE AND STOOL UA Color Ltyellow 11/10/2015 [facility] URINE AND STOOL UA Turbidity Slight *ABN* (11/09/15 11:08 PM) Clear 11/10/2015 [facility] URINE AND STOOL UA Spec Grav 1.023 <=1.030 11/10/2015 [facility] URINE AND STOOL UA WBC 49 0 - 5 11/10/2015 [facility] URINE AND STOOL UA Bacteria Occasional /HPF None Seen /HPF 11/10/[address] [facility] [address] URINE AND STOOL UA RBC 6 0 - 2 11/10/2015 [facility] URINE AND STOOL UA Sq Epi Moderate /LPF Few /LPF 11/10/2015 [facility] URINE AND STOOL UA Nitrite Negative (11/09/15 11:08 PM) Negative 11/10/2015 [facility] URINE AND STOOL UA Blood Negative (11/09/15 11:08 PM) Negative 11/10/2015 [facility] URINE AND STOOL UA Leuk Est Large *ABN* (11/09/15 11:08 PM) Negative 11/10/2015 [facility] URINE AND STOOL UA Protein 30 mg/dL Negative mg/dL 11/10/2015 [facility] URINE AND STOOL UA Glucose 50 mg/dL Negative mg/dL 11/10/2015 [facility] URINE AND STOOL UA Bili Negative *NA* (11/09/15 11:08 PM) Negative 11/10/2015 [facility] URINE AND STOOL UA Ketones Negative mg/dL Negative mg/dL 11/10/[address] [facility] [address] URINE AND STOOL UA pH 8.0 5.0 - 8.0 11/10/2015 [facility] URINE CHEM U Preg Negat jesus (11/09/15 11:08 PM) Negative 11/10/2015 [facility] IMMUNOLOGY CDC HIV 4th GEN Negat jesus (10/16/15 11:44 PM) Negative 10/17/2015 [facility]-Hep C Ab Negat jesus *NA* (10/16/15 11:44 PM) Negative 10/17/2015 [facility] CHEM PANEL eGFR 117 06/11/2015 Result Comment: [...] by the estimated BMI. [facility] CHEM PANEL CO2 27 24 - 32 06/11/2015 [facility] CHEM PANEL Calcium Lvl 8.5 8.5 - 10.5 06/11/2015 [facility] CHEM PANEL Albumin Lvl 3.2 3.5 - 5.0 06/11/2015 [facility] CHEM PANEL Potassium Lvl 4.1 3.5 - 5.1 06/11/2015 [facility] CHEM PANEL Chloride Lvl 102 95 - 109 06/11/2015 [facility] CHEM PANEL Sodium Lvl 136 135 - 145 06/11/2015 [facility] CHEM PANEL Creatinine Lvl 0.7 0.5 - 1.4 06/11/2015 [facility] CHEM PANEL Total Protein 7.5 6.4 - 8.4 06/11/2015 [facility] CHEM PANEL Glucose Lvl 170 70 - 99 06/11/2015 [facility] CHEM PANEL BUN 15 7 - [...] A/G Ratio 0.7 0.7 - 1.6 06/11/2015 [facility] CHEM PANEL B/C Ratio 21 6 - 25 06/11/2015 [facility] CHEM PANEL Globulin 4.3 2.0 - 4.0 06/11/2015 [facility] HEMATOLOGY Eosinophils # 0.3 0.0 - 0.5 06/11/2015 [facility] HEMATOLOGY Basophils # 0.1 0.0 - 0.2 06/11/2015 [facility] HEMATOLOGY Lymphocytes # 3.5 1.0 - 5.5 06/11/2015 [facility] HEMATOLOGY Segs 61.7 45.0 - 75.0 06/11/2015 [facility] HEMATOLOGY Lymphocytes 28.9 20.0 - 40.0 06/11/2015 [facility] HEMATOLOGY Monocytes # 0.7 0.0 - 0.8 06/11/2015 [facility] HEMATOLOGY Segs-Bands # 7.6 1.5 - 8.1 06/11/2015 [facility] HEMATOLOGY Basophils 1.0 0.0 - 1.0 06/11/2015 [facility] HEMATOLOGY Eosinophils 2.6 0.0 - 4.0 06/11/2015 [facility] Monocytes 5.8 2.0 - 12.0 06/11/2015 [facility] MCH 26.5 27.0 - 31.0 06/11/2015 [facility] MCHC 32.3 32.0 - 36.0 06/11/2015 [facility] RDW 13.8 11.5 - 14.5 06/11/2015 [facility] HEMATOLOGY WBC 12.3 3.7 - 10.4 06/11/2015 [facility] HEMATOLOGY MCV 82.2 80.0 - 98.0 06/11/2015 [facility] RBC 4.50 4.20 - 5.40 06/11/2015 [facility] Hgb 11.9 12.0 - 16.0 06/11/2015 [facility] Hct 37.0 36.0 - 48.0 06/11/2015 [facility] HEMATOLOGY MPV 9.8 7.4 - 10.4 06/11/2015 [facility] HEMATOLOGY Platelet 243 133 - 450 06/11/2015 [facility] URINE AND STOOL UA Color Ltyellow 06/11/2015 [facility] URINE AND STOOL UA Urobilinogen <=1.0 mg/dL 0.1 - 1.0 06/11/2015 [facility] URINE AND STOOL UA Mucus Few /LPF None Seen /LPF 06/11/2015 [facility] URINE AND STOOL UA Turbidity Slight *ABN* (06/10/15 10:39 PM) Clear 06/11/2015 [facility] URINE AND STOOL UA Protein Negative mg/dL Negative mg/dL 06/11/2015 [facility] URINE AND STOOL UA Ketones Negative mg/dL Negative mg/dL 06/11/2015 [facility] URINE AND STOOL UA Glucose Negative mg/dL Negative mg/dL 06/11/2015 [facility] URINE AND STOOL UA Bili Negative *NA* (06/10/15 10:39 PM) Negative 06/11/2015 [facility] URINE AND STOOL UA Blood Small *ABN* (06/10/15 10:39 PM) Negative 06/11/2015 [facility] URINE AND STOOL UA Leuk Est Small *ABN* (06/10/15 10:39 PM) Negative 06/11/2015 [facility] URINE AND STOOL UA Nitrite Negative (06/10/15 10:39 PM) Negative 06/11/2015 [facility] URINE AND STOOL UA RBC 4 0 - 2 06/11/2015 [facility] URINE AND STOOL UA WBC 4 0 - 5 06/11/2015 [facility] URINE AND STOOL UA Bacteria Occasional /HPF None Seen /HPF 06/11/2015 [facility] URINE AND STOOL UA Sq Epi Many /LPF Few /LPF 06/11/2015 [facility] URINE AND STOOL UA pH 6.0 5.0 - 8.0 06/11/2015 [facility] URINE AND STOOL UA Spec Grav 1.023 <=1.030 06/11/2015 [facility] URINE CHEM U Preg Negat jesus (06/10/15 10:39 PM) Negative 06/11/2015 [facility] CARDIAC ENZYMES Total CK 66 12 - 191 04/21/2015 [facility] CARDIAC ENZYMES BNP 36 <=100 pg/mL 04/21/2015 [facility] CARDIAC ENZYMES Troponin-I <0.02 0.00 - 0.40 04/21/2015 [facility] CHEM PANEL Lipase Lvl 152 73 - 393 04/21/2015 [facility] CHEM PANEL Amylase Lvl 19 25 - 115 04/21/2015 [facility] CHEM PANEL eGFR 99 04/21/2015 Result Comment: [...] by the estimated BMI. [facility] CHEM PANEL Calcium Lvl 9.0 8.5 - 10.5 04/21/2015 [facility] CHEM PANEL AST 35 0 - 37 04/21/2015 [facility] CHEM PANEL CO2 22 24 - 32 04/21/2015 [facility] CHEM PANEL BUN 11 7 - 22 04/21/2015 [facility] CHEM PANEL Total Protein 7.8 6.4 - 8.4 04/21/2015 [facility] CHEM PANEL Creatinine Lvl 0.8 0.5 - 1.4 04/21/2015 [facility] CHEM PANEL Alk Phos 82 39 - 136 04/21/2015 [facility] CHEM PANEL ALT 40 0 - 65 04/21/2015 [facility] CHEM PANEL Albumin Lvl 3.5 3.5 - 5.0 04/21/2015 [facility] CHEM PANEL Bili Total 0.5 0.2 - 1.3 04/21/2015 [facility] CHEM PANEL Glucose Lvl 131 70 - 99 04/21/2015 [facility] CHEM PANEL Chloride Lvl 106 95 - 109 04/21/2015 [facility] CHEM PANEL Potassium Lvl 3.6 3.5 - 5.1 04/21/2015 [facility] CHEM PANEL Sodium Lvl 137 135 - 145 04/21/2015 [facility] CHEM PANEL B/C Ratio 14 6 - 25 04/21/2015 [facility] CHEM PANEL AGAP 12.6 10.0 - 20.0 04/21/2015 [facility] CHEM PANEL A/G Ratio 0.8 0.7 - 1.6 04/21/2015 [facility] CHEM PANEL Globulin 4.3 2.0 - 4.0 04/21/2015 [facility] HEMATOLOGY INR 1.03 0.85 - 1.17 04/21/2015 [facility] HEMATOLOGY PTT 30.7 22.9 - 35.8 04/21/2015 [facility] HEMATOLOGY PT 13.5 12.0 - 14.7 04/21/2015 [facility] HEMATOLOGY Hct 38.9 36.0 - 48.0 04/21/2015 [facility] Hgb 13.0 12.0 - 16.0 04/21/2015 [facility] HEMATOLOGY RBC 4.71 4.20 - 5.40 04/21/2015 [facility] WBC 9.4 3.7 - 10.4 04/21/2015 [facility] MCV 82.7 80.0 - 98.0 04/21/2015 [facility] HEMATOLOGY Platelet 294 133 - 450 04/21/2015 [facility] RDW 14.4 11.5 - 14.5 04/21/2015 [facility] MCHC 33.5 32.0 - 36.0 04/21/2015 [facility] MCH 27.7 27.0 - 31.0 04/21/2015 [facility] MPV 9.1 7.4 - 10.4 04/21/2015 [facility] Segs-Bands # 6.1 1.5 - 8.1 04/21/2015 [facility] HEMATOLOGY Basophils 1.0 0.0 - 1.0 04/21/2015 [facility] HEMATOLOGY Eosinophils # 0.2 0.0 - 0.5 04/21/2015 [facility] HEMATOLOGY Monocytes # 0.5 0.0 - 0.8 04/21/2015 [facility] Lymphocytes # 2.5 1.0 - 5.5 04/21/2015 [facility] HEMATOLOGY Eosinophils 1.8 0.0 - 4.0 04/21/2015 [facility] Monocytes 5.0 2.0 - 12.0 04/21/2015 [facility] Basophils # 0.1 0.0 - 0.2 04/21/2015 [facility] Lymphocytes 27.0 20.0 - 40.0 04/21/2015 [facility] Segs 65.2 45.0 - 75.0 04/21/2015 [facility] URINE AND STOOL UA Ketones Negative mg/dL Negative mg/dL 04/21/2015 [facility] URINE AND STOOL UA Nitrite Negative (04/21/15 2:20 PM) Negative 04/21/2015 [facility] URINE AND STOOL UA Glucose Negative mg/dL Negative mg/dL 04/21/2015 [facility] URINE AND STOOL UA Blood Large *ABN* (04/21/15 2:20 PM) Negative 04/21/2015 [facility] URINE AND STOOL UA Bili Negative *NA* (04/21/15 2:20 PM) Negative 04/21/2015 [facility] URINE AND STOOL UA Protein Negative mg/dL Negative mg/dL 04/21/2015 [facility] URINE AND STOOL UA Spec Grav 1.015 <=1.030 04/21/2015 [facility] URINE AND STOOL UA pH 5.0 5.0 - 8.0 04/21/2015 [facility] URINE AND STOOL UA Turbidity Slight *ABN* (04/21/15 2:20 PM) Clear 04/21/2015 [facility] URINE AND STOOL UA Urobilinogen <=1.0 mg/dL 0.1 - 1.0 04/21/2015 [facility] URINE AND STOOL UA Color Ltyellow 04/21/2015 [facility] URINE AND STOOL UA Bacteria Occasional /HPF None Seen /HPF 04/21/2015 [facility] URINE AND STOOL UA RBC 76 0 - 2 04/21/2015 [facility] URINE AND STOOL UA WBC 11 0 - 5 04/21/2015 [facility] URINE AND STOOL UA Sq Epi Few /LPF Few /LPF 04/21/2015 [facility] URINE AND STOOL UA Leuk Est Large *ABN* (04/21/15 2:20 PM) Negative 04/21/2015 [facility] URINE CHEM U Preg Negat jesus (04/21/15 2:20 PM) Negative 04/21/2015 [facility] MOLECULAR DIAGNOSTIC N gonorrhea by Amp Det (APTIMA) Negative *NA* (04/19/15 12:25 AM) Negative 04/19/2015 [facility] MOLECULAR DIAGNOSTIC Source APTIMA Endocervix *NA* (04/19/15 12:25 AM) 04/19/2015 [facility] MOLECULAR DIAGNOSTIC C trachomatis b y Amp Det (APTIMA) Negative *NA* (04/19/15 12:25 AM) Negative 04/19/2015 [facility] MOLECULAR DIAGNOSTIC Source APTIMA Endocervix *NA* (04/19/15 12:25 AM) 04/19/2015 [facility] CHEM PANEL eGFR 99 04/19/2015 Result Comment: [...] Potassium Lvl 3.5 3.5 - 5.1 04/19/2015 [facility] CHEM PANEL Sodium Lvl 137 135 - 145 04/19/2015 [facility] CHEM PANEL Creatinine Lvl 0.8 0.5 - 1.4 04/19/2015 [facility] CHEM PANEL Calcium Lvl 8.0 8.5 - 10.5 04/19/2015 [facility] CHEM PANEL Chloride Lvl 105 95 - 109 04/19/2015 [facility] CHEM PANEL ALT 33 0 - 65 04/19/2015 [facility] CHEM PANEL BUN 18 7 - 22 04/19/2015 [facility] CHEM PANEL CO2 24 24 - 32 04/19/2015 [facility] CHEM PANEL AST 24 0 - 37 04/19/2015 [facility] CHEM PANEL Bili Total 0.3 0.2 - 1.3 04/19/2015 [facility] CHEM PANEL Alk Phos 87 39 - 136 04/19/2015 [facility] CHEM PANEL Total Protein 7.2 6.4 - 8.4 04/19/2015 [facility] CHEM PANEL Albumin Lvl 3.3 3.5 - 5.0 04/19/2015 [facility] CHEM PANEL Glucose Lvl 163 70 - 99 04/19/2015 [facility] CHEM PANEL Globulin 3.9 2.0 - 4.0 04/19/2015 [facility] CHEM PANEL A/G Ratio 0.8 0.7 - 1.6 04/19/2015 [facility] CHEM PANEL AGAP 11.5 10.0 - 20.0 04/19/2015 [facility] CHEM PANEL B/C Ratio 22 6 - 25 04/19/2015 [facility] CHEM PANEL Amylase Lvl 21 25 - 115 04/19/2015 [facility] CHEM PANEL Lipase Lvl 201 73 - 393 04/19/2015 [facility] HEMATOLOGY Eosinophils # 0.2 0.0 - 0.5 04/19/2015 [facility] HEMATOLOGY Segs-Bands # 7.0 1.5 - 8.1 04/19/2015 [facility] HEMATOLOGY Eosinophils 1.9 0.0 - 4.0 04/19/2015 [facility] HEMATOLOGY Basophils 0.5 0.0 - 1.0 04/19/2015 [facility] HEMATOLOGY Basophils # 0.1 0.0 - 0.2 04/19/2015 [facility] HEMATOLOGY Monocytes 5.7 2.0 - 12.0 04/19/2015 [facility] HEMATOLOGY Lymphocytes # 3.4 1.0 - 5.5 04/19/2015 [facility] HEMATOLOGY Monocytes # 0.6 0.0 - 0.8 04/19/2015 [facility] HEMATOLOGY Segs 61.8 45.0 - 75.0 04/19/2015 [facility] HEMATOLOGY Lymphocytes 30.1 20.0 - 40.0 04/19/2015 [facility] HEMATOLOGY WBC 11.4 3.7 - 10.4 04/19/2015 [facility] HEMATOLOGY RBC 4.40 4.20 - 5.40 04/19/2015 [facility] HEMATOLOGY RDW 13.9 11.5 - 14.5 04/19/2015 [facility] HEMATOLOGY Platelet 290 133 - 450 04/19/2015 [facility] HEMATOLOGY MPV 9.0 7.4 - 10.4 04/19/2015 [facility] HEMATOLOGY Hgb 12.1 12.0 - 16.0 04/19/2015 [facility] Hct 36.7 36.0 - 48.0 04/19/2015 [facility] HEMATOLOGY MCV 83.4 80.0 - 98.0 04/19/2015 [facility] MCH 27.5 27.0 - 31.0 04/19/2015 [facility] MCHC 33.0 32.0 - 36.0 04/19/2015 [facility] URINE AND STOOL UA Turbidity Marked *ABN* (04/18/15 11:16 PM) Clear 04/19/2015 [facility] URINE AND STOOL UA Color Yellow *NA* (04/18/15 11:16 PM) Yellow 04/19/2015 [facility] URINE AND STOOL UA Bili Negative *NA* (04/18/15 11:16 PM) Negative 04/19/2015 [facility] URINE AND STOOL UA Ketones Negative mg/dL Negative mg/dL 04/19/2015 [facility] URINE AND STOOL UA Glucose Negative mg/dL Negative mg/dL 04/19/[address] [facility] [address] URINE AND STOOL UA Protein Negative mg/dL Negative mg/dL 04/19/2015 [facility] URINE AND STOOL UA pH 6.0 5.0 - 8.0 04/19/2015 [facility] URINE AND STOOL UA Spec Grav 1.024 <=1.030 04/19/2015 [facility] URINE AND STOOL UA Sq Epi Many /LPF Few /LPF 04/19/2015 [facility] URINE AND STOOL UA [place] Yeast Occasional /HPF None Seen /HPF 04/19/[address] [facility] [address] URINE AND STOOL UA Bacteria Occasional /HPF None Seen /HPF 04/19/2015 [facility] URINE AND STOOL UA RBC 23 0 - 2 04/19/2015 [facility] URINE AND STOOL UA Hyal Cast 1 0 - 2 04/19/2015 [facility] URINE AND STOOL UA WBC 40 0 - 5 04/19/2015 [facility] URINE AND STOOL UA Leuk Est Large *ABN* (04/18/15 11:16 PM) Negative 04/19/2015 [facility] URINE AND STOOL UA Urobilinogen 2.0 0.1 - 1.0 04/19/2015 [facility] URINE AND STOOL UA Nitrite Negative (04/18/15 11:16 PM) Negative 04/19/2015 [facility] URINE AND STOOL UA Blood Small *ABN* (04/18/15 11:16 PM) Negative 04/19/2015 [facility] URINE CHEM U Preg Negat jesus (04/18/15 11:16 PM) Negative 04/19/2015 [facility] HEMATOLOGY Basophils 1.1 0.0 - 1.0 03/10/2015 [facility] HEMATOLOGY Monocytes 5.4 2.0 - 12.0 03/10/2015 [facility] HEMATOLOGY Lymphocytes 26.4 20.0 - 40.0 03/10/2015 [facility] HEMATOLOGY Segs 65.0 45.0 - 75.0 03/10/2015 [facility] HEMATOLOGY Eosinophils 2.1 0.0 - 4.0 03/10/2015 [facility] HEMATOLOGY Lymphocytes # 3.2 1.0 - 5.5 03/10/2015 [facility] HEMATOLOGY Segs-Bands # 8.0 1.5 - 8.1 03/10/2015 [facility] HEMATOLOGY Eosinophils # 0.3 0.0 - 0.5 03/10/2015 [facility] HEMATOLOGY Monocytes # 0.7 0.0 - 0.8 03/10/2015 [facility] HEMATOLOGY Basophils # 0.1 0.0 - 0.2 03/10/2015 [facility] HEMATOLOGY MCV 83.5 80.0 - 98.0 03/10/2015 [facility] HEMATOLOGY Hct 35.6 36.0 - 48.0 03/10/2015 [facility] HEMATOLOGY MCH 27.5 27.0 - 31.0 03/10/2015 [facility] RDW 14.7 11.5 - 14.5 03/10/2015 [facility] MCHC 32.9 32.0 - 36.0 03/10/2015 [facility] WBC 12.2 3.7 - 10.4 03/10/2015 [facility] Hgb 11.7 12.0 - 16.0 03/10/2015 [facility] RBC 4.26 4.20 - 5.40 03/10/2015 [facility] Platelet 309 133 - 450 03/10/2015 [facility] MPV 8.8 7.4 - 10.4 03/10/2015 [facility] MOLECULAR DIAGNOSTIC Source APTIMA Urine *NA* (03/09/15 5:30 PM) 03/09/2015 [facility] MOLECULAR DIAGNOSTIC N gonorrhea by Amp Det (APTIMA) Negative 3 *NA* (03/09/15 5:30 PM) Negative 03/09/2015 <sup>3</sup>Interpretive Data: The APTIMA assay is a target amplification nucleic acid probe test utilizing target capture for the qualitative detection and differentiation of ribosomal RNA from Neisseria gonorrhoeae to aid in the diagnosis of disease from symptomatic and asymptomatic individuals using the Nonpareil System.
This assay utilizes FDA cleared IVD reagents. Performance characteristics have been verified by the [facility] within [facility]. The [facility] is authorized under the Clinical Laboratory Improvement Amendments of 1988 (CLIA-88) to perform high complexity testing. [facility] URINE AND STOOL UA Urobilinogen <=1.0 mg/dL 0.1 - 1.0 03/09/2015 [facility] URINE AND STOOL UA WBC 3 0 - 5 03/09/2015 [facility] URINE AND STOOL UA RBC 11 0 - 2 03/09/2015 [facility] URINE AND STOOL UA Sq Epi Moderate /LPF Few /LPF 03/09/2015 [facility] URINE AND STOOL UA pH 6.0 5.0 - 8.0 03/09/2015 [facility] URINE AND STOOL UA Protein Negative mg/dL Negative mg/dL 03/09/2015 [facility] URINE AND STOOL UA Glucose 150 mg/dL Negative mg/dL 03/09/2015 [facility] URINE AND STOOL UA Leuk Est Moderate *ABN* (03/09/15 5:30 PM) Negative 03/09/2015 [facility] URINE AND STOOL UA Nitrite Negative (03/09/15 5:30 PM) Negative 03/09/2015 [facility] URINE AND STOOL UA Color Yellow *NA* (03/09/15 5:30 PM) Yellow 03/09/2015 [facility] URINE AND STOOL UA Turbidity Clear (03/09/15 5:30 PM) Clear 03/09/2015 [facility] URINE AND STOOL UA Spec Grav 1.025 <=1.030 03/09/2015 [facility] URINE AND STOOL UA Mucus Few /LPF None Seen /LPF 03/09/2015 [facility] URINE AND STOOL UA Bacteria Occasional /HPF None Seen /HPF 03/09/2015 [facility] URINE AND STOOL UA Blood Small *ABN* (03/09/15 5:30 PM) Negative 03/09/2015 [facility] URINE AND STOOL UA Bili Negative *NA* (03/09/15 5:30 PM) Negative 03/09/2015 [facility] URINE AND STOOL UA Ketones Trace mg/dL Negative mg/dL 03/09/2015 [facility] URINE CHEM U Preg Negat jesus (03/09/15 5:30 PM) Negative 03/09/2015 [facility] CHEM PANEL eGFR 99 03/09/2015 <sup>1</sup>Result Comment: [...] should be multiplied by the estimated BMI. [facility] CHEM PANEL AGAP 9.0 10.0 - 20.0 03/09/2015 [facility] CHEM PANEL Calcium Lvl 8.4 8.5 - 10.5 03/09/2015 [facility] CHEM PANEL CO2 27 24 - 32 03/09/2015 [facility] CHEM PANEL Chloride Lvl 105 95 - 109 03/09/2015 [facility] CHEM PANEL BUN 14 7 - 22 03/09/2015 [facility] CHEM PANEL Creatinine Lvl 0.8 0.5 - 1.4 03/09/2015 [facility] CHEM PANEL Potassium Lvl 4.0 3.5 - 5.1 03/09/2015 [facility] CHEM PANEL Sodium Lvl 137 135 - 145 03/09/2015 [facility] CHEM PANEL Glucose Lvl 152 70 - 99 03/09/2015 <sup>2</sup>Interpretive Data: Adult ref erence range values reflect the clinical guidelines
of the [place] [employer]. [facility] CHEM PANEL Magnesium Lvl 2.0 1.8 - 2.4 03/09/2015 [facility] URINE AND STOOL UA Color Ltyellow 11/04/2014 [facility] URINE AND STOOL UA Urobilinogen <=1.0 mg/dL 0.1 - 1.0 11/04/2014 [facility] URINE AND STOOL UA Leuk Est Trace *ABN* (11/04/14 9:24 AM) Negative 11/04/2014 [facility] URINE AND STOOL UA WBC 4 0 - 5 11/04/2014 [facility] URINE AND STOOL UA RBC 1 0 - 2 11/04/2014 [facility] URINE AND STOOL UA Sq Epi Few /LPF Few /LPF 11/04/2014 [facility] URINE AND STOOL UA Ketones Negative mg/dL Negative mg/dL 11/04/2014 [facility] URINE AND STOOL UA Bili Negative *NA* (11/04/14 9:24 AM) Negative 11/04/2014 [facility] URINE AND STOOL UA Glucose Negative mg/dL Negative mg/dL 11/04/2014 [facility] URINE AND STOOL UA Blood Small *ABN* (11/04/14 9:24 AM) Negative 11/04/2014 [facility] URINE AND STOOL UA Nitrite Negative (11/04/14 9:24 AM) Negative 11/04/2014 [facility] URINE AND STOOL UA Turbidity Clear (11/04/14 9:24 AM) Clear 11/04/2014 [facility] URINE AND STOOL UA Protein Negative mg/dL Negative mg/dL 11/04/2014 [facility] URINE AND STOOL UA Spec Grav 1.014 <=1.030 11/04/2014 [facility] URINE AND STOOL UA pH 5.0 5.0 - 8.0 11/04/2014 [facility] URINE CHEM U Preg Negat jesus (11/04/14 9:24 AM) Negative 11/04/2014 [facility] CHEM PANEL Lipase Lvl 163 73 - 393 11/04/2014 [facility] CHEM PANEL eGFR 117 11/04/2014 <sup>1</sup>Result Comment: [...] should be multiplied by the estimated BMI. [facility] CHEM PANEL BUN 13 7 - 22 11/04/2014 [facility] CHEM PANEL CO2 29 24 - 32 11/04/2014 [facility] CHEM PANEL ALT 45 0 - 65 11/04/2014 [facility] CHEM PANEL Creatinine Lvl 0.7 0.5 - 1.4 11/04/2014 [facility] CHEM PANEL Total Protein 6.6 6.4 - 8.4 11/04/2014 [facility] CHEM PANEL Albumin Lvl 3.0 3.5 - 5.0 11/04/2014 [facility] CHEM PANEL Bili Total 0.3 0.2 - 1.3 11/04/2014 [facility] CHEM PANEL Alk Phos 74 39 - 136 11/04/2014 [facility] CHEM PANEL AST 21 0 - 37 11/04/2014 [facility] CHEM PANEL Glucose Lvl 142 70 - 99 11/04/2014 <sup>2</sup>Interpretive Data: Adult ref erence range values reflect the clinical guidelines
of the [place] [employer]. [facility] CHEM PANEL Sodium Lvl 138 135 - 145 11/04/2014 [facility] CHEM PANEL Potassium Lvl 4.3 3.5 - 5.1 11/04/2014 [facility] CHEM PANEL Chloride Lvl 107 95 - 109 11/04/2014 [facility] CHEM PANEL Calcium Lvl 8.0 8.5 - 10.5 11/04/2014 [facility] CHEM PANEL Globulin 3.6 2.0 - 4.0 11/04/2014 [facility] CHEM PANEL A/G Ratio 0.8 0.7 - 1.6 11/04/2014 [facility] CHEM PANEL B/C Ratio 19 6 - 25 11/04/2014 [facility] CHEM PANEL AGAP 6.3 10.0 - 20.0 11/04/2014 [facility] HEMATOLOGY Monocytes # 0.5 0.0 - 0.8 11/04/2014 [facility] HEMATOLOGY Segs-Bands # 5.5 1.5 - 8.1 11/04/2014 [facility] HEMATOLOGY Lymphocytes # 3.0 1.0 - 5.5 11/04/2014 [facility] HEMATOLOGY Basophils 0.7 0.0 - 1.0 11/04/2014 [facility] HEMATOLOGY Basophils # 0.1 0.0 - 0.2 11/04/2014 [facility] HEMATOLOGY Monocytes 5.5 2.0 - 12.0 11/04/2014 [facility] HEMATOLOGY Eosinophils 2.0 0.0 - 4.0 11/04/2014 [facility] HEMATOLOGY Segs 59.7 45.0 - 75.0 11/04/2014 [facility] HEMATOLOGY Lymphocytes 32.1 20.0 - 40.0 11/04/2014 [facility] HEMATOLOGY Eosinophils # 0.2 0.0 - 0.5 11/04/2014 [facility] HEMATOLOGY WBC 9.3 3.7 - 10.4 11/04/2014 [facility] HEMATOLOGY MCV 82.7 80.0 - 98.0 11/04/2014 [facility] HEMATOLOGY Hct 36.9 36.0 - 48.0 11/04/2014 [facility] HEMATOLOGY Hgb 12.3 12.0 - 16.0 11/04/2014 [facility] HEMATOLOGY RBC 4.46 4.20 - 5.40 11/04/2014 [facility] HEMATOLOGY MCH 27.5 27.0 - 31.0 11/04/2014 [facility] HEMATOLOGY MPV 8.8 7.4 - 10.4 11/04/2014 [facility] HEMATOLOGY Platelet 318 133 - 450 11/04/2014 [facility] HEMATOLOGY RDW 14.0 11.5 - 14.5 11/04/2014 [facility] HEMATOLOGY MCHC 33.2 32.0 - 36.0 11/04/2014 [facility] URINE AND STOOL UA Urobilinogen <=1.0 mg/dL 0.1 - 1.0 10/30/2014 [facility] URINE AND STOOL UA Bacteria Occasional /HPF None Seen /HPF 10/30/2014 [facility] URINE AND STOOL UA Turbidity Marked *ABN* (10/30/14 8:37 AM) Clear 10/30/2014 [facility] URINE AND STOOL UA Color Yellow *NA* (10/30/14 8:37 AM) Yellow 10/30/2014 [facility] URINE AND STOOL UA Protein Negative mg/dL Negative mg/dL 10/30/2014 [facility] URINE AND STOOL UA Glucose Negative mg/dL Negative mg/dL 10/30/2014 [facility] URINE AND STOOL UA pH 5.0 5.0 - 8.0 10/30/2014 [facility] URINE AND STOOL UA Spec Grav 1.029 <=1.030 10/30/2014 [facility] URINE AND STOOL UA Mucus Few /LPF None Seen /LPF 10/30/2014 [facility] URINE AND STOOL UA Leuk Est Moderate *ABN* (10/30/14 8:37 AM) Negative 10/30/2014 [facility] URINE AND STOOL UA Sq Epi Many /LPF Few /LPF 10/30/2014 [facility] URINE AND STOOL UA RBC 4 0 - 2 10/30/2014 [facility] URINE AND STOOL UA WBC 21 0 - 5 10/30/2014 [facility] URINE AND STOOL UA Bili Negative *NA* (10/30/14 8:37 AM) Negative 10/30/2014 [facility] URINE AND STOOL UA Ketones Negative mg/dL Negative mg/dL 10/30/[address] [facility] [address] URINE AND STOOL UA Nitrite Negative (10/30/14 8:37 AM) Negative 10/30/2014 [facility] URINE AND STOOL UA Blood Moderate *ABN* (10/30/14 8:37 AM) Negative 10/30/2014 [facility] URINE CHEM U Preg Negat jesus (10/30/14 8:37 AM) Negative 10/30/2014 [facility] ELECTROLYTES Sodium Lvl 136 135 - 145 10/30/2014 [facility] ELECTROLYTES Chloride Lvl 107 95 - 109 10/30/2014 [facility] ELECTROLYTES Potassium Lvl 3.8 3.5 - 5.1 10/30/2014 [facility] ELECTROLYTES Calcium Lvl 8.3 8.5 - 10.5 10/30/2014 [facility] ELECTROLYTES eGFR 117 10/30/2014 <sup>1</sup>Result Comment: The [...] should be multiplied by the estimated BMI. [facility] ELECTROLYTES Creatinine Lvl 0.7 0.5 - 1.4 10/30/2014 [facility] ELECTROLYTES CO2 23 24 - 32 10/30/2014 [facility] ELECTROLYTES Albumin Lvl 3.4 3.5 - 5.0 10/30/2014 [facility] ELECTROLYTES ALT 31 0 - 65 10/30/2014 [facility] ELECTROLYTES Alk Phos 85 39 - 136 10/30/2014 [facility] ELECTROLYTES AST 22 0 - 37 10/30/2014 [facility] ELECTROLYTES Total Protein 7.4 6.4 - 8.4 10/30/2014 [facility] ELECTROLYTES Bili Total 0.3 0.2 - 1.3 10/30/2014 [facility] ELECTROLYTES Glucose Lvl 129 70 - 99 10/30/2014 <sup>2</sup>Interpretive Data: Adult ref erence range values reflect the clinical guidelines
of the [place] [employer]. [facility] ELECTROLYTES BUN 14 7 - 22 10/30/2014 [facility] ELECTROLYTES A/G Ratio 0.8 0.7 - 1.6 10/30/2014 [facility] ELECTROLYTES AGAP 9.8 10.0 - 20.0 10/30/2014 [facility] ELECTROLYTES B/C Ratio 20 6 - 25 10/30/2014 [facility] ELECTROLYTES Globulin 4.0 2.0 - 4.0 10/30/2014 [facility] HEMATOLOGY Basophils 0.8 0.0 - 1.0 10/30/2014 [facility] HEMATOLOGY Segs-Bands # 6.0 1.5 - 8.1 10/30/2014 [facility] HEMATOLOGY Monocytes # 0.6 0.0 - 0.8 10/30/2014 [facility] HEMATOLOGY Lymphocytes # 1.8 1.0 - 5.5 10/30/2014 [facility] HEMATOLOGY Eosinophils # 0.2 0.0 - 0.5 10/30/2014 [facility] HEMATOLOGY Basophils # 0.1 0.0 - 0.2 10/30/2014 [facility] HEMATOLOGY Eosinophils 2.8 0.0 - 4.0 10/30/2014 [facility] HEMATOLOGY Monocytes 7.1 2.0 - 12.0 10/30/2014 [facility] HEMATOLOGY Segs 68.8 45.0 - 75.0 10/30/2014 [facility] HEMATOLOGY Lymphocytes 20.5 20.0 - 40.0 10/30/2014 [facility] HEMATOLOGY WBC 8.7 3.7 - 10.4 10/30/2014 [facility] HEMATOLOGY RBC 4.70 4.20 - 5.40 10/30/2014 [facility] HEMATOLOGY Hgb 12.8 12.0 - 16.0 10/30/2014 [facility] HEMATOLOGY Hct 38.8 36.0 - 48.0 10/30/2014 [facility] HEMATOLOGY MCV 82.6 80.0 - 98.0 10/30/2014 [facility] HEMATOLOGY MCH 27.2 27.0 - 31.0 10/30/2014 [facility] HEMATOLOGY MCHC 32.9 32.0 - 36.0 10/30/2014 [facility] HEMATOLOGY RDW 14.3 11.5 - 14.5 10/30/2014 [facility] HEMATOLOGY Platelet 334 133 - 450 10/30/2014 [facility] HEMATOLOGY MPV 8.7 7.4 - 10.4 10/30/2014 [facility] URINE AND STOOL UA Urobilinogen <=1.0 mg/dL 0.1 - 1.0 06/23/2014 [facility] URINE AND STOOL UA Color Ltyellow 06/23/2014 [facility] URINE AND STOOL UA Bacteria Occasional /HPF None Seen /HPF 06/23/2014 [facility] URINE AND STOOL UA RBC 2 0 - 2 06/23/2014 [facility] URINE AND STOOL UA Sq Epi Few /LPF Few /LPF 06/23/2014 [facility] URINE AND STOOL UA WBC 11 0 - 5 06/23/2014 [facility] URINE AND STOOL UA Leuk Est Small *ABN* (06/23/14 9:40 AM) Negative 06/23/2014 [facility] URINE AND STOOL UA Nitrite Negative (06/23/14 9:40 AM) Negative 06/23/2014 [facility] URINE AND STOOL UA Blood Small *ABN* (06/23/14 9:40 AM) Negative 06/23/2014 [facility] URINE AND STOOL UA Spec Grav 1.015 <=1.030 06/23/2014 [facility] URINE AND STOOL UA Glucose Negative mg/dL Negative mg/dL 06/23/2014 [facility] URINE AND STOOL UA Turbidity Slight *ABN* (06/23/14 9:40 AM) Clear 06/23/2014 [facility] URINE AND STOOL UA Protein Negative mg/dL Negative mg/dL 06/23/2014 [facility] URINE AND STOOL UA pH 5.0 5.0 - 8.0 06/23/2014 [facility] URINE AND STOOL UA Bili Negative *NA* (06/23/14 9:40 AM) Negative 06/23/2014 [facility] URINE AND STOOL UA Ketones Negative mg/dL Negative mg/dL 06/23/2014 [facility] URINE CHEM U Preg Negat jesus (06/23/14 9:40 AM) Negative 06/23/2014 [facility] CHEM PANEL eGFR 117 06/23/2014 <sup>1</sup>Result Comment: [...] should be multiplied by the estimated BMI. [facility] CHEM PANEL Chloride Lvl 106 95 - 109 06/23/2014 [facility] CHEM PANEL Potassium Lvl 3.8 3.5 - 5.1 06/23/2014 [facility] CHEM PANEL CO2 24 24 - 32 06/23/2014 [facility] CHEM PANEL Calcium Lvl 8.4 8.5 - 10.5 06/23/2014 [facility] CHEM PANEL BUN 12 7 - 22 06/23/2014 [facility] CHEM PANEL Glucose Lvl 158 70 - 99 06/23/2014 <sup>2</sup>Interpretive Data: Adult ref erence range values reflect the clinical guidelines
of the [place] [employer]. [facility] CHEM PANEL Sodium Lvl 137 135 - 145 06/23/2014 [facility] CHEM PANEL Creatinine Lvl 0.7 0.5 - 1.4 06/23/2014 [facility] CHEM PANEL AGAP 10.8 10.0 - 20.0 06/23/2014 [facility] ENDOCRINOLOGY S Preg Ne gative *NA* (06/23/14 8:54 AM) Negative 06/23/2014 [facility] HEMATOLOGY Eosinophils # 0.3 0.0 - 0.5 06/23/2014 [facility] HEMATOLOGY Monocytes # 0.5 0.0 - 0.8 06/23/2014 [facility] HEMATOLOGY Basophils # 0.1 0.0 - 0.2 06/23/2014 [facility] HEMATOLOGY Lymphocytes 28.8 20.0 - 40.0 06/23/2014 [facility] HEMATOLOGY Segs 62.7 45.0 - 75.0 06/23/2014 [facility] HEMATOLOGY Eosinophils 2.7 0.0 - 4.0 06/23/2014 [facility] HEMATOLOGY Monocytes 5.1 2.0 - 12.0 06/23/2014 [facility] HEMATOLOGY Basophils 0.7 0.0 - 1.0 06/23/2014 [facility] HEMATOLOGY Segs-Bands # 6.3 1.5 - 8.1 06/23/2014 [facility] HEMATOLOGY Lymphocytes # 2.9 1.0 - 5.5 06/23/2014 [facility] HEMATOLOGY MCHC 32.3 32.0 - 36.0 06/23/2014 [facility] HEMATOLOGY RDW 14.2 11.5 - 14.5 06/23/2014 [facility] HEMATOLOGY Platelet 336 133 - 450 06/23/2014 [facility] HEMATOLOGY MPV 8.9 7.4 - 10.4 06/23/2014 [facility] HEMATOLOGY MCV 83.5 80.0 - 98.0 06/23/2014 [facility] HEMATOLOGY MCH 27.0 27.0 - 31.0 06/23/2014 [facility] HEMATOLOGY Hct 36.7 36.0 - 48.0 06/23/2014 [facility] HEMATOLOGY RBC 4.39 4.20 - 5.40 06/23/2014 [facility] HEMATOLOGY Hgb 11.9 12.0 - 16.0 06/23/2014 [facility] HEMATOLOGY WBC 10.1 3.7 - 10.4 06/23/2014 [facility] CHEMISTRY Lipase Lvl 167 73 - 393 07/09/2012 Normal [facility] CHEMISTRY B/C Ratio 13 6 - 25 07/09/2012 Normal [facility] CHEMISTRY AGAP 9.9 10.0 - 20.0 07/09/2012 LOW [facility] CHEMISTRY Globulin 3.8 2.0 - 4.0 07/09/2012 Normal [facility] CHEMISTRY A/G Ratio 0.9 0.7 - 1.6 07/09/2012 Normal [facility] CHEMISTRY Glucose Lvl 105 70 - 99 07/09/2012 [facility] <sup>2</sup>Interpretive Data: Adult ref erence range values reflect the clinical guidelines
of the [place] [employer]. [facility] CHEMISTRY BUN 12 7 - 22 07/09/2012 Normal [facility] CHEMISTRY Creatinine Lvl 0.9 0.5 - 1.4 07/09/2012 Normal [facility] CHEMISTRY CO2 27 24 - 32 07/09/2012 Normal [facility] CHEMISTRY Calcium Lvl 8.3 8.5 - 10.5 07/09/2012 LOW [facility] CHEMISTRY Sodium Lvl 141 135 - 145 07/09/2012 Normal [facility] CHEMISTRY Potassium Lvl 3.9 3.5 - 5.1 07/09/2012 Normal [facility] CHEMISTRY Chloride Lvl 108 95 - 109 07/09/2012 Normal [facility] CHEMISTRY Albumin Lvl 3.3 3.5 - 5.0 07/09/2012 LOW [facility] CHEMISTRY eGFR 88 07/09/2012 NA <sup>1</sup>Result Comment: [...] should be multiplied by the estimated BMI. [facility] CHEMISTRY Alk Phos 82 39 - 136 07/09/2012 Normal [facility] CHEMISTRY Bili Total 0.2 0.2 - 1.3 07/09/2012 Normal [facility] CHEMISTRY ALT 29 0 - 65 07/09/2012 Normal [facility] CHEMISTRY Total Protein 7.1 6.4 - 8.4 07/09/2012 Normal [facility] CHEMISTRY AST 19 0 - 37 07/09/2012 Normal [facility] HEMATOLOGY Lymphocytes # 3.4 1.0 - 5.5 07/09/2012 Normal [facility] HEMATOLOGY Eosinophils # 0.2 0.0 - 0.5 07/09/2012 Normal [facility] HEMATOLOGY Basophils # 0.0 0.0 - 0.2 07/09/2012 Normal [facility] HEMATOLOGY Monocytes # 0.6 0.0 - 0.8 07/09/2012 Normal [facility] HEMATOLOGY Segs-Bands # 5.5 1.5 - 8.1 07/09/2012 Normal [facility] HEMATOLOGY Monocytes 6.6 2.0 - 12.0 07/09/2012 Normal [facility] HEMATOLOGY Lymphocytes 34.9 20.0 - 40.0 07/09/2012 Normal [facility] HEMATOLOGY Segs 56.4 45.0 - 75.0 07/09/2012 Normal [facility] HEMATOLOGY Basophils 0.4 0.0 - 1.0 07/09/2012 Normal [facility] HEMATOLOGY Eosinophils 1.7 0.0 - 4.0 07/09/2012 Normal [facility] HEMATOLOGY WBC 9.8 3.7 - 10.4 07/09/2012 Normal [facility] HEMATOLOGY MCV 84.0 81.0 - 99.0 07/09/2012 Normal [facility] HEMATOLOGY MCH 27.9 27.0 - 31.0 07/09/2012 Normal [facility] HEMATOLOGY MPV 9.0 7.4 - 10.4 07/09/2012 Normal [facility] HEMATOLOGY Hgb 11.8 12.0 - 16.0 07/09/2012 LOW [facility] HEMATOLOGY RBC 4.22 4.20 - 5.40 07/09/2012 Normal [facility] HEMATOLOGY Hct 35.5 36.0 - 48.0 07/09/2012 LOW [facility] HEMATOLOGY MCHC 33.2 32.0 - 36.0 07/09/2012 Normal [facility] HEMATOLOGY RDW 14.5 11.5 - 14.5 07/09/2012 Normal [facility] HEMATOLOGY Platelet 305 133 - 450 07/09/2012 Normal [facility] CHEMISTRY U Preg Negati ve (07/08/2012 22:53:00) Negati ve 07/09/2012 Normal [facility] URINALYSIS UA Urobilinogen 0.2 0.1 - 1.0 07/09/2012 Normal [facility] URINALYSIS UA Nitrite Negat jesus (07/08/2012 22:53:00) Negati ve 07/09/2012 Normal [facility] URINALYSIS UA Ketones Negat jesus *NA* (07/08/2012 22:53:00) Negati ve 07/09/2012 NA [facility] URINALYSIS UA Blood Small *ABN* (07/08/2012 22:53:00) Negati ve 07/09/2012 [facility] URINALYSIS UA Glucose Negat jesus (07/08/2012 22:53:00) Negati ve 07/09/2012 Normal [facility] URINALYSIS UA Bili Negat jesus *NA* (07/08/2012 22:53:00) Negati ve 07/09/2012 NA [facility] URINALYSIS UA Protein Negat jesus (07/08/2012 22:53:00) Negati ve 07/09/2012 Normal [facility] URINALYSIS UA pH 7.0 5.0 - 8.0 07/09/2012 Normal [facility] URINALYSIS UA Leuk Est Negat jesus (07/08/2012 22:53:00) Negati ve 07/09/2012 Normal [facility] URINALYSIS UA Color Yello w *NA* (07/08/2012 22:53:00) Yellow 07/09/2012 NA [facility] URINALYSIS UA Turbidity Clear (07/08/2012 22:53:00) Clear 07/09/2012 Normal [facility] URINALYSIS UA Spec Grav 1.025 <=1.030 07/09/2012 Normal [facility] URINALYSIS UA Sq Epi Many /LPF *ABN* (07/08/2012 22:53:00) Few 07/09/2012 ABN [facility] URINALYSIS UA RBC 2 0 - 2 07/09/2012 Normal [facility] URINALYSIS UA Bacteria Few / HPF *NA* (07/08/2012 22:53:00) None S een 07/09/2012 NA [facility] URINALYSIS UA Mucus Few / LPF *NA* (07/08/2012 22:53:00) None S een 07/09/2012 NA [facility] URINALYSIS UA WBC 8 0 - 5 07/09/2012 HI [facility] CHEMISTRY U Preg Negati ve (04/22/2012 08:19:00) Negati ve 04/22/2012 Normal [facility] CHEMISTRY U Preg Negati ve (04/16/2012 08:45:00) Negati ve 04/16/2012 Normal [facility] CHEMISTRY AGAP 12.0 10.0 - 20.0 04/16/2012 Normal [facility] CHEMISTRY Creatinine Lvl 1.0 0.5 - 1.4 04/16/2012 Normal [facility] CHEMISTRY BUN 13 7 - 22 04/16/2012 Normal [facility] CHEMISTRY Calcium Lvl 8.4 8.5 - 10.5 04/16/2012 LOW [facility] CHEMISTRY CO2 24 24 - 32 04/16/2012 Normal [facility] CHEMISTRY Glucose Lvl 112 70 - 99 04/16/2012 [facility] <sup>1</sup>Interpretive Data: Adult ref erence range values reflect the clinical guidelines
of the [place] [employer]. [facility] CHEMISTRY Potassium Lvl 4.0 3.5 - 5.1 04/16/2012 Normal [facility] CHEMISTRY Sodium Lvl 139 135 - 145 04/16/2012 Normal [facility] CHEMISTRY Chloride Lvl 107 95 - 109 04/16/2012 Normal [facility] HEMATOLOGY MCV 82.7 81.0 - 99.0 04/16/2012 Normal [facility] HEMATOLOGY RDW 14.4 11.5 - 14.5 04/16/2012 Normal [facility] HEMATOLOGY MCH 27.5 27.0 - 31.0 04/16/2012 Normal [facility] HEMATOLOGY MCHC 33.2 32.0 - 36.0 04/16/2012 Normal [facility] HEMATOLOGY Hct 37.5 36.0 - 48.0 04/16/2012 Normal [facility] HEMATOLOGY WBC 8.7 3.7 - 10.4 04/16/2012 Normal [facility] HEMATOLOGY Hgb 12.4 12.0 - 16.0 04/16/2012 Normal [facility] HEMATOLOGY RBC 4.53 4.20 - 5.40 04/16/2012 Normal [facility] HEMATOLOGY Platelet 313 133 - 450 04/16/2012 Normal [facility] HEMATOLOGY MPV 8.9 7.4 - 10.4 04/16/2012 Normal [facility] HEMATOLOGY Basophils # 0.0 0.0 - 0.2 04/16/2012 Normal [facility] HEMATOLOGY Monocytes # 0.6 0.0 - 0.8 04/16/2012 Normal [facility] HEMATOLOGY Eosinophils # 0.1 0.0 - 0.5 04/16/2012 Normal [facility] HEMATOLOGY Segs-Bands # 5.2 1.5 - 8.1 04/16/2012 Normal [facility] HEMATOLOGY Lymphocytes # 2.9 1.0 - 5.5 04/16/2012 Normal [facility] HEMATOLOGY Basophils 0.4 0.0 - 1.0 04/16/2012 Normal [facility] HEMATOLOGY Eosinophils 1.6 0.0 - 4.0 04/16/2012 Normal [facility] HEMATOLOGY Monocytes 6.4 2.0 - 12.0 04/16/2012 Normal [facility] HEMATOLOGY Lymphocytes 32.6 20.0 - 40.0 04/16/2012 Normal [facility] HEMATOLOGY Segs 59.0 45.0 - 75.0 04/16/2012 Normal [facility] URINALYSIS UA Color Ltyellow 04/16/2012 NA [facility] URINALYSIS UA Urobilinogen 0.1 - 1.0 04/16/2012 NA [facility] URINALYSIS UA RBC 2 0 - 2 04/16/2012 Normal [facility] URINALYSIS UA WBC 2 0 - 5 04/16/2012 Normal [facility] URINALYSIS UA Sq Epi Few / LPF *NA* (04/16/2012 08:45:00) Few 04/16/2012 [facility] URINALYSIS UA Bacteria Occas ional /HPF *NA* (04/16/2012 08:45:00) None S een 04/16/2012 NA [facility] URINALYSIS UA pH 6.0 5.0 - 8.0 04/16/2012 Normal [facility] URINALYSIS UA Spec Grav 1.014 <=1.030 04/16/2012 Normal [facility] URINALYSIS UA Turbidity Sligh t *ABN* (04/16/2012 08:45:00) Clear 04/16/2012 [facility]N [facility] URINALYSIS UA Bili Negat jesus *NA* (04/16/2012 08:45:00) Negati ve 04/16/2012 NA [facility] URINALYSIS UA Glucose Negat jesus mg/dL *NA* (04/16/2012 08:45:00) Negati ve 04/16/2012 NA [facility] URINALYSIS UA Ketones Negat jesus mg/dL *NA* (04/16/2012 08:45:00) Negati ve 04/16/2012 NA [facility] URINALYSIS UA Leuk Est Trace *ABN* (04/16/2012 08:45:00) Negati ve 04/16/2012 [facility] URINALYSIS UA Nitrite Negat jesus (04/16/2012 08:45:00) Negati ve 04/16/2012 Normal [facility] URINALYSIS UA Blood Moder ate *ABN* (04/16/2012 08:45:00) Negati ve 04/16/2012 [facility] URINALYSIS UA Protein Negat jesus mg/dL (04/16/2012 08:45:00) Negati ve 04/16/2012 Normal [facility] IMMUNOLOGY Gonorrhea PCR Negat jesus (04/16/2012 08:43:00) Negati ve 04/16/2012 Normal [facility] IMMUNOLOGY Source Diogo Endoc ervix 04/16/2012 NA [facility] IMMUNOLOGY Chlam PCR Negat jesus (04/16/2012 08:43:00) Negati ve 04/16/2012 Normal [facility] IMMUNOLOGY Source Chlam endoc ervix 04/16/2012 NA [facility] RAPID Grp A Strep Scr Negative (11/09/2011 19:45:00) Negati ve 11/10/2011 Normal [facility] CHEMISTRY Lipase Lvl 160 73 - 393 10/15/2011 Normal [facility] CHEMISTRY Alk Phos 60 39 - 136 10/15/2011 Normal [facility] CHEMISTRY Calcium Lvl 8.7 8.5 - 10.5 10/15/2011 Normal [facility] CHEMISTRY Total Protein 7.6 6.4 - 8.4 10/15/2011 Normal [facility] CHEMISTRY Albumin Lvl 3.8 3.5 - 5.0 10/15/2011 Normal [facility] CHEMISTRY ALT 24 0 - 65 10/15/2011 Normal [facility] CHEMISTRY AST 17 0 - 37 10/15/2011 Normal [facility] CHEMISTRY Bili Total 0.3 0.2 - 1.3 10/15/2011 Normal [facility] CHEMISTRY Sodium Lvl 140 135 - 145 10/15/2011 Normal [facility] CHEMISTRY Potassium Lvl 4.1 3.5 - 5.1 10/15/2011 Normal [facility] CHEMISTRY Chloride Lvl 106 95 - 109 10/15/2011 Normal [facility] CHEMISTRY Creatinine Lvl 0.7 0.5 - 1.4 10/15/2011 Normal [facility] CHEMISTRY Glucose Lvl 76 10/15/2011 NA <sup>1</sup>Interpretive Data: Reference Ranges : 0 - 7 days : 41 - 90 mg/dL 7 days - 150 yrs : 70 - 99 mg/dL (fasting), based on the clinical recommendations of the [place] [employer]. [facility] CHEMISTRY BUN 12 7 - 22 10/15/2011 Normal [facility] CHEMISTRY CO2 24 24 - 32 10/15/2011 Normal [facility] CHEMISTRY Globulin 3.8 2.0 - 4.0 10/15/2011 Normal [facility] CHEMISTRY A/G Ratio 1.0 0.7 - 1.6 10/15/2011 Normal [facility] CHEMISTRY B/C Ratio 17 6 - 25 10/15/2011 Normal [facility] CHEMISTRY AGAP 14.1 10.0 - 20.0 10/15/2011 Normal [facility] CHEMISTRY Amylase Lvl 25 25 - 115 10/15/2011 Normal [facility] CHEMISTRY S Preg Negati ve *NA* (10/15/2011 14:11:00) Negati ve 10/15/2011 NA [facility] HEMATOLOGY Basophils # 0.1 0.0 - 0.2 10/15/2011 Normal [facility] HEMATOLOGY Lymphocytes 29.5 20.0 - 40.0 10/15/2011 Normal [facility] HEMATOLOGY Segs 62.2 45.0 - 75.0 10/15/2011 Normal [facility] HEMATOLOGY Segs-Bands # 7.0 1.5 - 8.1 10/15/2011 Normal [facility] HEMATOLOGY Lymphocytes # 3.3 1.0 - 5.5 10/15/2011 Normal [facility] HEMATOLOGY Basophils 1.2 0.0 - 1.0 10/15/2011 HI [facility] HEMATOLOGY Eosinophils 2.1 0.0 - 4.0 10/15/2011 Normal [facility] HEMATOLOGY Monocytes 5.0 2.0 - 12.0 10/15/2011 Normal [facility] HEMATOLOGY Eosinophils # 0.2 0.0 - 0.5 10/15/2011 Normal [facility] HEMATOLOGY Monocytes # 0.6 0.0 - 0.8 10/15/2011 Normal [facility] HEMATOLOGY Platelet 341 133 - 450 10/15/2011 Normal [facility] HEMATOLOGY MPV 9.2 7.4 - 10.4 10/15/2011 Normal [facility] HEMATOLOGY RDW 14.0 11.5 - 14.5 10/15/2011 Normal [facility] HEMATOLOGY Hgb 13.2 12.0 - 16.0 10/15/2011 Normal [facility] HEMATOLOGY MCHC 33.9 32.0 - 36.0 10/15/2011 Normal [facility] HEMATOLOGY MCH 28.3 27.0 - 31.0 10/15/2011 Normal [facility] HEMATOLOGY MCV 83.4 81.0 - 99.0 10/15/2011 Normal [facility] HEMATOLOGY Hct 38.9 36.0 - 48.0 10/15/2011 Normal [facility] HEMATOLOGY RBC 4.67 4.20 - 5.40 10/15/2011 Normal [facility] HEMATOLOGY WBC 11.3 3.7 - 10.4 10/15/2011 HI [facility] URINALYSIS UA Mucus Few / LPF (10/15/2011 14:11:00) None S een 10/15/2011 Normal [facility] URINALYSIS UA [place] Yeast Many /HPF *ABN* (10/15/2011 14:11:00) None S een 10/15/2011 ABN [facility] URINALYSIS UA Sq Epi Rare /LPF (10/15/2011 14:11:00) Few 10/15/2011 Normal [facility] URINALYSIS Micro? Perfo rmed (10/15/2011 14:11:00) 10/15/2011 Normal [facility] URINALYSIS UA Bacteria Moder ate /HPF (10/15/2011 14:11:00) None S een 10/15/2011 Normal [facility] URINALYSIS UA WBC 0-2 / HPF (10/15/2011 14:11:00) None S een 10/15/2011 Normal [facility] URINALYSIS UA RBC 51-10 0 /HPF *ABN* (10/15/2011 14:11:00) 0 - 2 10/15/2011 ABN [facility] URINALYSIS UA Leuk Est Negat jesus (10/15/2011 14:11:00) Negati ve 10/15/2011 Normal [facility] URINALYSIS UA Nitrite Posit jesus *ABN* (10/15/2011 14:11:00) Negati ve 10/15/2011 ABN [facility] URINALYSIS UA Urobilinogen 0.2 0.1 - 1.0 10/15/2011 Normal [facility] URINALYSIS UA Bili Negat jesus *NA* (10/15/2011 14:11:00) Negati ve 10/15/2011 NA [facility] URINALYSIS UA Ketones Negat jesus *NA* (10/15/2011 14:11:00) Negati ve 10/15/2011 NA [facility] URINALYSIS UA Glucose Negat jesus (10/15/2011 14:11:00) Negati ve 10/15/2011 Normal [facility] URINALYSIS UA Protein Negat jesus (10/15/2011 14:11:00) Negati ve 10/15/2011 Normal [facility] URINALYSIS UA Spec Grav >=1.0 30 *ABN* (10/15/2011 14:11:00) <=1.030 10/15/2011 ABN [facility] URINALYSIS UA Blood Large *ABN* (10/15/2011 14:11:00) Negati ve 10/15/2011 ABN [facility] URINALYSIS UA Color Yello w *NA* (10/15/2011 14:11:00) Yellow 10/15/2011 NA [facility] URINALYSIS UA pH 5.0 5.0 - 8.0 10/15/2011 Normal [facility] URINALYSIS UA Turbidity Sligh t Cloudy (10/15/2011 14:11:00) Clear 10/15/2011 Normal [facility] Pathology Reports No Data Provided for This Section Diagnostic Reports Report Value Date Source Chest 1view DX Clinical Indica tion: - PALPITATIONS Comparison: 09/21/2016 FINDINGS: Single AP view of the chest is submitted for interpretation. The lungs are clear and there are no effusions. There is no visible pneumothorax. Cardiomediastinal contours are within normal limits. No gross bony normalities are identified. IMPRESSION: 1. No radiographic evidence of acute car diopulmonary process. SL: [id number] 07/30/2017 [facility] Preg < 14wks Single gest w [...] ULTRASOUND: Single viable intrauterine gestation is seen. [place]-rump length of the embryo is 2.4 mm. [...] normal heart rate of 100 bpm. SL: [id number] 09/21/2016 [facility] Chest 1view DX Study: Chest 1v iew DX Clinical Indication: Chest pain Comparison: Chest x-ray from 07/13/2016 FINDINGS: The cardiac silhouette is normal in size. The lungs are clear and without consolidation or congestion. No pleural effusion or pneumothorax is seen. The osseous structures are unremarkable. IMPRESSION: No acute cardiopulmonary disease. SL: [id number] 09/21/2016 [facility] Preg < 14wks Single gest [...] no embryo is seen. Uterine fibroid. SL: [id number] 09/16/2016 [facility] Brain wo contrast CT EXAM: CT BRAIN [...] limits. IMPRESSION: 1. No acute intracranial hemorrhage, mid line shift, or mass effect. 2. Extra-axial calcification along the r ight frontal convexity may represent a calcified meningioma. Dural calcification is considered less likely. SL: [id number] 07/13/2016 [facility] Chest 1view DX EXAM: XR CHEST 1 [...] identified. IMPRESSION: No acute cardiopulmonary abnormality. SL: [id number] 07/13/2016 [facility] 2 views DX PA and latera l chest: The cardiomediastinal silhouette, pulmonary vasculature and iraida are within normal limits. The lungs and pleural spaces are clear. There are no significant osseous abnormalities. There is no significant change compared to 07/07/2016. IMPRESSION: No acute radiographic abnormalities in the chest. SL [id number] 07/10/2016 [facility] Chest 1view DX Study: Chest 1v iew DX 07/07/2016 4:52 PM CDT Patient Name: ROXANA HUERTA MR: [id number] : 1985; Age: 30 years y/o Female Ordering Physician: Shruti Tee Clinical Indication: Chest pain Comparison: 06-29. FINDINGS LUNGS: The lungs are clear of consolidation, pleural effusion, and pneumothorax. HEART AND MEDIASTINUM: Normal size heart. LINES: None. OSSEOUS STRUCTURES: No fracture, dislocation, or suspicious focal osseous lesion. OTHER: None. IMPRESSION: 1. No acute abnormality as above discus sed. SL: [id number] 07/07/2016 [facility] Chest 2 views DX Clinical Marce cation: 30 years Female with Cough and fever [...] radiographic evidence of acute cardiopulmonary disease. SL: [id number] 06/19/2016 [facility] Brain wo contrast CT Study: Rolando bazzi wo contrast CT 06/18/2016 9:40 PM CDT [...] scan of the brain without contrast. SL: [id number] 06/18/2016 [facility] Chest 2 views DX Patient Name: ROXANA HUERTA : 1985; Age: 30 years y/o Female MR: [id number] Study: Chest 2 views DX 06/18/2016 8:18 PM CDT Ordering Physician: Clinical Indication: Chest pain; Comparison: 04/18/2016 Two-view chest Lungs are clear. Heart size normal. No pleural effusion or pneumothorax. No osseous abnormalities. IMPRESSION: Negative. SL: CAMILLA 06/18/2016 [facility] Chest 1view DX Patient Name: Adan HUERTA : 1985; Age: 30 years Female MR: [id number] Study: Chest 1view DX Order Time: 04/18/2016 [...] of acute pulmonary disease. SL: CANDY 04/18/2016 [facility] Renal Stone CT EXAM: CT renal stone HISTORY: Acute right lower abdominal pain, possible renal stone COMPARISON: [place] [address] TECHNIQUE: Axial images of the abdomen and [...] seen. 2. Focal mildly distended small bowel lo op in the left abdomen is nonspecific, follow-up abdominal radiographs can be obtained to exclude a developing mild partial small bowel obstruction. 3. Fatty liver. SL: [id number] 03/21/2016 [facility] Abdomen RUQ US Patient Name: Adan HUERTA : 1985; Age: 30 years Female MR: [id number] Study: Abdomen RUQ US 12/02/2015 3:26 PM [...] ascites. IMPRESSION: 1. Hepatocellular disease most likely d ue to fatty infiltration. 2. Gallbladder sludge with wall thicken ing may be seen with cholecystitis. 3. Slight common duct dilation, correla tion for a distal obstructing process is recommended. SL: [id number] 12/02/2015 [facility] Pelvis Transvaginal US Patient Name: ROXANA HUERTA : 1985; Age: 30 years y/o Female MR: [id number] Study: Pelvis Transvaginal US 11/09/2015 10:53 PM [employer] Ordering Physician: Samir Leon Clinical Indication: Abdominal [...] 1. Normal size uterus with a mildly thic kened endometrial stripe in a 5 mm cystic area within the fundal endometrium. Clinical correlation is required along with serial beta hCG levels and follow-up pelvic ultrasound if needed. 2. Small mildly complex left ovarian cys t at 1.6 cm. Short interval follow-up pelvic ultrasound is recommended in 2-3 menstrual cycles to document for stability or resolution. SL: [id number] 11/10/2015 [facility] Abdomen/Pelvis w IV contrast CT I. CT [...] No evidence of a focal or acute intra -abdominal process. 2. Marked diffuse fatty changes involvin g the liver and mild hepatomegaly. 3. Small umbilical hernia. SL: 12 Maciel Jeffrey M.D. 06/11/2015 [facility] Abdomen RUQ US Right upper kelly drant ultrasound. Clinical History: Abdominal pain, acute Comparison: [...] hepatopedal flow. Impression: 1. Hepatic steatosis SL: 04/21/2015 [facility] Abdomen acute series w chest 1 view [...] pattern. 2. No acute cardiopulmonary disease. SL: 04/21/2015 [facility] Abdomen/Pelvis w IV contrast CT I. CT [...] No evidence of an acute or focal intr a-abdominal process. 2. Severe diffuse fatty change involving the liver. 3. Very small umbilical hernia. There is no herniation of bowel. SL: 13 Maciel Jeffrey M.D. 03/09/2015 [facility] Transvaginal US NAME: ROXANA HUERTA : 1985 [...] ultrasound of the pelvis. SL: 14 03/09/2015 [facility] Abdomen/Pelvis IV contrast only CT CT SCAN [...] IMPRESSION: 1. No convincing evidence of acute appen dicitis. 2. Diffuse fatty liver infiltration. 3. Small fat containing umbilical hernia SL: 12 10/30/2014 [facility] Consultation Notes No Data Provided for This Section Discharge Summaries No Data Provided for This Section History and Physicals No Data Provided for This Section Vital Signs Vital Sign Value Date Comments Source Respitory Rate 16 07/31/2017 [facility] Heart Rate 72 07/31/2017 [facility] Systolic (mm Hg) 99 07/31/2017 [facility] Diastolic (mm Hg) 62 07/31/2017 [facility] Temperature Oral (F) 98.7 F 07/31/2017 [facility] Temperature Oral (F) 98.7 F 07/30/2017 [facility] Heart Rate 78 07/30/2017 [facility] Respitory Rate 16 07/30/2017 [facility] Systolic (mm Hg) 102 07/30/2017 [facility] Diastolic (mm Hg) 64 07/30/2017 [facility] Heart Rate 91 07/30/2017 [facility] Respitory Rate 16 07/30/2017 [facility] Systolic (mm Hg) 110 07/30/2017 [facility] Diastolic (mm Hg) 95 07/30/2017 [facility] Weight 90 1 09/29/2016 [facility] BMI Calculated 36.29 07/30/2017 [facility] Height 157.48 cm 07/30/2017 [facility] Temperature Oral (F) 98 F 07/30/2017 [facility] Weight 97.727 10/24/2016 [facility] BMI Calculated 39.41 10/24/2016 [facility] Heart Rate 86 10/24/2016 [facility] Respitory Rate 20 10/24/2016 [facility] Height 157.48 cm 10/24/2016 [facility] Temperature Oral (F) 98.0 F 10/24/2016 [facility] Systolic (mm Hg) 116 10/24/2016 [facility] Diastolic (mm Hg) 70 10/24/2016 [facility] Respitory Rate 16 09/21/2016 [facility] Temperature Oral (F) 97.8 F 09/21/2016 [facility] Heart Rate 83 09/21/2016 [facility] Systolic (mm Hg) 121 09/21/2016 [facility] Diastolic (mm Hg) 61 09/21/2016 [facility] Heart Rate 72 09/21/2016 [facility] Respitory Rate 16 09/21/2016 [facility] Temperature Oral (F) 97.4 F 09/21/2016 [facility] Weight 93.636 09/21/2016 [facility] Systolic (mm Hg) 117 09/21/2016 [facility] Diastolic (mm Hg) 69 09/21/2016 [facility] Systolic (mm Hg) 110 09/17/2016 [facility] Diastolic (mm Hg) 58 09/17/2016 [facility] Respitory Rate 16 09/17/2016 [facility] Temperature Oral (F) 98.2 F 09/17/2016 [facility] Heart Rate 72 09/17/2016 [facility] Weight 94.545 09/16/2016 [facility] BMI Calculated 38.12 09/16/2016 [facility] Height 157.48 cm 09/16/2016 [facility] Temperature Oral (F) 98.6 F 09/16/2016 [facility] Systolic (mm Hg) 107 09/16/2016 [facility] Diastolic (mm Hg) 73 09/16/2016 [facility] Respitory Rate 18 09/16/2016 [facility] Heart Rate 69 09/16/2016 [facility] Respitory Rate 18 07/13/2016 [facility] Systolic (mm Hg) 107 07/13/2016 [facility] Diastolic (mm Hg) 68 07/13/2016 [facility] Temperature Oral (F) 98 F 07/13/2016 [facility] Respitory Rate 15 07/13/2016 [facility] Systolic (mm Hg) 107 07/13/2016 [facility] Diastolic (mm Hg) 65 07/13/2016 [facility] Temperature Oral (F) 98 F 07/13/2016 [facility] Systolic (mm Hg) 110 07/13/2016 [facility] Diastolic (mm Hg) 71 07/13/2016 [facility] Respitory Rate 17 07/13/2016 [facility] Temperature Oral (F) 98 F 07/13/2016 [facility] Weight 97.727 07/13/2016 [facility] Height 162.56 cm 07/13/2016 [facility] BMI Calculated 36.98 07/13/2016 [facility] Heart Rate 75 07/13/2016 [facility] BMI Calculated 36.98 07/10/2016 [facility] Weight 97.727 07/10/2016 [facility] Height 162.56 cm 07/10/2016 [facility] Temperature Oral (F) 98.3 F 07/10/2016 [facility] Respitory Rate 18 07/10/2016 [facility] Heart Rate 74 07/10/2016 [facility] Systolic (mm Hg) 114 07/10/2016 [facility] Diastolic (mm Hg) 75 07/10/2016 [facility] Respitory Rate 14 07/08/2016 [facility] Heart Rate 77 07/08/2016 [facility] Temperature Oral (F) 97.7 F 07/08/2016 [...] 162.56 cm 06/19/2016 [facility] Weight 97.727 06/19/2016 [facility] Temperature Oral (F) 98.2 F 06/19/2016 [facility] Heart Rate 82 06/19/2016 [facility] Systolic (mm Hg) 116 06/19/2016 [facility] Diastolic (mm Hg) 81 06/19/2016 [facility] Temperature Oral (F) 98.3 F 05/25/2016 [facility] Systolic (mm Hg) 111 05/25/2016 [facility] Diastolic (mm Hg) 72 05/25/2016 [facility] Respitory Rate 18 05/25/2016 [facility] Heart Rate 66 05/25/2016 [facility] Weight 97.727 05/25/2016 [facility] Height 157.48 cm 05/25/2016 [facility] BMI Calculated 39.41 05/25/2016 [facility] Systolic (mm Hg) 123 05/25/2016 [facility] Diastolic (mm Hg) 81 05/25/2016 [facility] Heart Rate 82 05/25/2016 [facility] Respitory Rate 20 05/25/2016 [facility] Temperature Oral (F) 98.2 F 05/25/2016 [facility] Heart Rate 65 04/20/2016 [facility] Respitory Rate 16 04/20/2016 [facility] Systolic (mm Hg) 114 04/20/2016 [facility] Diastolic (mm Hg) 66 04/20/2016 [facility] Temperature Oral (F) 97.0 F 04/20/2016 [facility] Heart Rate 52 04/20/2016 [facility] Respitory Rate 18 04/20/2016 [facility] Systolic (mm Hg) 106 04/20/2016 [facility] Diastolic (mm Hg) 60 04/20/2016 [facility] Systolic (mm Hg) 115 04/20/2016 [facility] Diastolic (mm Hg) 60 04/20/2016 [facility] Heart Rate 69 04/20/2016 [facility] Respitory Rate 18 04/20/2016 [facility] Weight 100 04/20/2016 [facility] Temperature Oral (F) 97.6 F 04/20/2016 [facility] Height 157.48 cm 04/20/2016 [facility] BMI Calculated 40.32 04/20/2016 [facility] Temperature Oral (F) 98.1 F 04/19/2016 [facility] Systolic (mm Hg) 109 04/19/2016 [facility] Diastolic (mm Hg) 64 04/19/2016 [facility] Respitory Rate 18 04/19/2016 [facility] Heart Rate 74 04/19/2016 [facility] Temperature Oral (F) 98.1 F 04/19/2016 [facility] Systolic (mm Hg) 125 04/19/2016 [facility] Diastolic (mm Hg) 65 04/19/2016 [facility] Respitory Rate 18 04/19/2016 [facility] Heart Rate 63 04/19/2016 [facility] Weight 97.727 04/19/2016 [facility] Systolic (mm Hg) 153 04/19/2016 [facility] Diastolic (mm Hg) 89 04/19/2016 [facility] Heart Rate 78 04/19/2016 [facility] Respitory Rate 18 04/19/2016 [facility] Height 157.48 cm 04/19/2016 [facility] BMI Calculated 39.41 04/19/2016 [facility] Temperature Oral (F) 98.6 F 04/19/2016 [facility] Systolic (mm Hg) 113 03/22/2016 [facility] Diastolic (mm Hg) 62 03/22/2016 [facility] Respitory Rate 18 03/22/2016 [facility] Heart Rate 65 03/22/2016 [facility] Temperature Oral (F) 98.3 F 03/22/2016 [facility] Weight 97.727 03/21/2016 [facility] Height 157.48 cm 03/21/2016 [facility] Respitory Rate 17 03/21/2016 [facility] Temperature Oral (F) 98.3 F 03/21/2016 [facility] BMI Calculated 39.41 03/21/2016 [facility] Systolic (mm Hg) 103 03/21/2016 [facility] Diastolic (mm Hg) 69 03/21/2016 [facility] Heart Rate 64 03/21/2016 [facility] Systolic (mm Hg) 103 12/05/2015 [facility] Diastolic (mm Hg) 63 12/05/2015 [facility] Respitory Rate 16 12/05/2015 [facility] Heart Rate 61 12/05/2015 [facility] Temperature Oral (F) 98 F 12/05/2015 [facility] Respitory Rate 18 12/05/2015 [facility] Heart Rate 76 12/05/2015 [facility] Respitory Rate 16 12/05/2015 [facility] Systolic (mm Hg) 90 12/05/2015 [facility] Diastolic (mm Hg) 59 12/05/2015 [facility] Temperature Oral (F) 98.3 F 12/05/2015 [facility] Systolic (mm Hg) 103 12/05/2015 [facility] Diastolic (mm Hg) 64 12/05/2015 [facility] Temperature Oral (F) 97.6 F 12/05/2015 [facility] Heart Rate 66 12/05/2015 [facility] BMI Calculated 32.49 12/03/2015 [facility] Weight 94.091 12/03/2015 [facility] Height 170.18 cm 12/03/2015 [facility] Height 157.48 cm 12/03/2015 [facility] Weight 95 0 12/03/2015 [facility] BMI Calculated 38.31 12/03/2015 [facility] Height 157.48 cm 12/02/2015 [facility] Weight 95.455 12/02/2015 [facility] BMI Calculated 38.49 12/02/2015 [facility] Systolic (mm Hg) 110 11/10/2015 [facility] Diastolic (mm Hg) 70 11/10/2015 [facility] Respitory Rate 20 11/10/2015 [facility] Heart Rate 74 11/10/2015 [facility] Temperature Oral (F) 98.3 F 11/10/2015 [facility] Temperature Oral (F) 98.4 F 11/10/2015 [facility] BMI Calculated 39.41 11/10/2015 [facility] Weight 97.727 11/10/2015 [facility] Height 157.48 cm 11/10/2015 [facility] Respitory Rate 20 11/10/2015 [facility] Heart Rate 73 11/10/2015 [facility] Systolic (mm Hg) 107 11/10/2015 [facility] Diastolic (mm Hg) 62 11/10/2015 [facility] Systolic (mm Hg) 134 10/17/2015 [facility] Diastolic (mm Hg) 80 10/17/2015 [facility] Respitory Rate 18 10/17/2015 [facility] Heart Rate 80 10/17/2015 [facility] Temperature Oral (F) 98.0 F 10/17/2015 [facility] BMI Calculated 39.41 10/17/2015 [facility] Weight 97.727 10/17/2015 [facility] Height 157.48 cm 10/17/2015 [facility] Height 157.48 cm 09/21/2015 [facility] Weight 95 0 09/21/2015 [facility] BMI Calculated 38.31 09/21/2015 [facility] Respitory Rate 18 09/21/2015 [facility] Heart Rate 66 09/21/2015 [facility] Temperature Oral (F) 98.1 F 09/21/2015 [facility] Systolic (mm Hg) 108 09/21/2015 [facility] Diastolic (mm Hg) 67 09/21/2015 [facility] Respitory Rate 18 06/11/2015 [facility] Heart Rate 54 06/11/2015 [facility] Systolic (mm Hg) 100 06/11/2015 [facility] Diastolic (mm Hg) 60 06/11/2015 [facility] Temperature Oral (F) 98.0 F 06/11/2015 [facility] Heart Rate 66 06/11/2015 [facility] Respitory Rate 18 06/11/2015 [facility] Systolic (mm Hg) 115 06/11/2015 [facility] Diastolic (mm Hg) 57 06/11/2015 [facility] Temperature Oral (F) 98.0 F 06/11/2015 [facility] Weight 95.455 06/11/2015 [facility] Systolic (mm Hg) 117 06/11/2015 [facility] Diastolic (mm Hg) 79 06/11/2015 [facility] Heart Rate 80 06/11/2015 [facility] Respitory Rate 18 06/11/2015 [facility] Weight 97.727 05/14/2015 [facility] BMI Calculated 39.41 05/14/2015 [facility] Respitory Rate 16 05/14/2015 [facility] Heart Rate 70 05/14/2015 [facility] Systolic (mm Hg) 119 05/14/2015 [facility] Diastolic (mm Hg) 79 05/14/2015 [facility] Temperature Oral (F) 98.5 F 05/14/2015 [facility] Height 157.48 cm 05/14/2015 [facility] Respitory Rate 27 04/21/2015 [facility] Temperature Oral (F) 98.0 F 04/21/2015 [facility] Systolic (mm Hg) 104 04/21/2015 [facility] Diastolic (mm Hg) 62 04/21/2015 [facility] Respitory Rate 19 04/21/2015 [facility] BMI Calculated 45.82 04/21/2015 [facility] Weight 113.636 04/21/2015 [facility] Systolic (mm Hg) 124 04/21/2015 [facility] Diastolic (mm Hg) 75 04/21/2015 [facility] Heart Rate 65 04/21/2015 [facility] Temperature Oral (F) 98.1 F 04/21/2015 [facility] Respitory Rate 18 04/21/2015 [facility] Height 157.48 cm 04/21/2015 [facility] Heart Rate 65 04/19/2015 [facility] Temperature Oral (F) 98.3 F 04/19/2015 [facility] Respitory Rate 18 04/19/2015 [facility] Systolic (mm Hg) 135 04/19/2015 [facility] Diastolic (mm Hg) 78 04/19/2015 [facility] Respitory Rate 19 04/19/2015 [facility] Weight 97.727 04/19/2015 [facility] Temperature Oral (F) 98.4 F 04/19/2015 [facility] Height 157.48 cm 04/19/2015 [facility] Heart Rate 67 04/19/2015 [facility] Respitory Rate 18 04/19/2015 [facility] Systolic (mm Hg) 143 04/19/2015 [facility] Diastolic (mm Hg) 76 04/19/2015 [facility] BMI Calculated 39.41 04/19/2015 [facility] Respitory Rate 22 03/17/2015 [facility] Heart Rate 80 03/17/2015 [facility] Systolic (mm Hg) 122 03/17/2015 [facility] Diastolic (mm Hg) 80 03/17/2015 [facility] Height 157.48 cm 03/17/2015 [facility] BMI Calculated 32.99 03/17/2015 [facility] Temperature Oral (F) 98.6 F 03/17/2015 [facility] Weight 81.818 03/17/2015 [facility] Heart Rate 70 03/10/2015 [facility] Systolic (mm Hg) 119 03/10/2015 [facility] Diastolic (mm Hg) 79 03/10/2015 [facility] Respitory Rate 20 03/10/2015 [facility] Temperature Oral (F) 97.9 F 03/10/2015 [facility] Heart Rate 66 03/09/2015 [facility] Respitory Rate 18 03/09/2015 [facility] Systolic (mm Hg) 109 03/09/2015 [facility] Diastolic (mm Hg) 69 03/09/2015 [facility] BMI Calculated 40.32 03/09/2015 [facility] Weight 100 03/09/2015 [facility] Height 157.48 cm 03/09/2015 [facility] Heart Rate 64 03/09/2015 [facility] Respitory Rate 18 03/09/2015 [facility] Systolic (mm Hg) 121 03/09/2015 [facility] Diastolic (mm Hg) 79 03/09/2015 [facility] Temperature Oral (F) 98.1 F 03/09/2015 [facility] Systolic (mm Hg) 106 11/04/2014 [facility] Diastolic (mm Hg) 57 11/04/2014 [facility] Respitory Rate 18 11/04/2014 [facility] Heart Rate 59 11/04/2014 [facility] Temperature Oral (F) 98.5 F 11/04/2014 [facility] Respitory Rate 18 11/04/2014 [facility] Heart Rate 62 11/04/2014 [facility] Temperature Oral (F) 98.4 F 11/04/2014 [facility] Systolic (mm Hg) 100 11/04/2014 [facility] Diastolic (mm Hg) 61 11/04/2014 [facility] Temperature Oral (F) 98.3 F 11/04/2014 [facility] Systolic (mm Hg) 106 11/04/2014 [facility] Diastolic (mm Hg) 71 11/04/2014 [facility] Respitory Rate 18 11/04/2014 [facility] Heart Rate 58 11/04/2014 [facility] Height 160.02 cm 11/04/2014 [facility] BMI Calculated 38.17 11/04/2014 [facility] Weight 97.727 11/04/2014 [facility] Temperature Oral (F) 98.3 F 10/30/2014 [facility] Systolic (mm Hg) 102 10/30/2014 [facility] Diastolic (mm Hg) 63 10/30/2014 [facility] Respitory Rate 18 10/30/2014 [facility] Heart Rate 66 10/30/2014 [facility] Systolic (mm Hg) 111 10/30/2014 [facility] Diastolic (mm Hg) 76 10/30/2014 [facility] Heart Rate 84 10/30/2014 [facility] Respitory Rate 18 10/30/2014 [facility] Temperature Oral (F) 99.0 F 10/30/2014 [facility] Height 160.02 cm 10/30/2014 [facility] BMI Calculated 38.17 10/30/2014 [facility] Weight 97.727 10/30/2014 [facility] Respitory Rate 18 06/23/2014 [facility] Heart Rate 63 06/23/2014 [facility] Temperature Oral (F) 98.2 F 06/23/2014 [facility] [...] 06/10/2014 [facility] Systolic (mm Hg) 122 06/10/2014 [facility] Temperature Oral (F) 98.0 F 06/10/2014 [facility] Heart Rate 88 06/10/2014 [facility] Respitory Rate 18 06/10/2014 [facility] Respitory Rate 20 06/10/2014 [facility] Weight 97.727 06/10/2014 [facility] Heart Rate 91 06/10/2014 [facility] Diastolic (mm Hg) 80 06/10/2014 [facility] Systolic (mm Hg) 124 06/10/2014 [facility] Temperature Oral (F) 98.1 F 06/10/2014 [facility] [...] 10/16/2011 [facility] Systolic (mm Hg) 110 10/16/2011 [facility] Heart Rate 71 10/16/2011 [facility] Respitory Rate 18 10/16/2011 [facility] [facility] Temperature Oral (F) 98.3 F 10/16/2011 [facility] Temperature Oral (F) 98.6 F 10/15/2011 [facility] Respitory Rate 18 10/15/2011 [facility] Heart Rate 68 10/15/2011 [facility] Diastolic (mm Hg) 60 10/15/2011 [facility] Systolic (mm Hg) 114 10/15/2011 [facility] Weight 90.909 10/15/2011 [facility] Height 157.48 cm 10/15/2011 [facility] Heart Rate 65 10/15/2011 [facility] Diastolic (mm Hg) 75 10/15/2011 [facility] Temperature Oral (F) 98.1 F 10/15/2011 [facility] Respitory Rate 18 10/15/2011 [facility] Systolic (mm Hg) 112 10/15/2011 [facility] Temperature Oral (F) 98.4 F 08/02/2011 [facility] Heart Rate 68.0 08/02/2011 [facility] Diastolic (mm Hg) 70.0 08/02/2011 [facility] Respitory Rate 18.0 08/02/2011 [facility] Systolic (mm Hg) 118.0 08/02/2011 [facility] Weight 94.091 08/02/2011 [facility] Height 160.02 cm 08/02/2011 [facility] Encounters Location Location Details Encounter Type Encounter Number Reason For Visit Attending Provider ADM Date DC Date Status Source [facility] [id number] ARTEMIO CAROLINA 08/02/2011 08/02/2011 [facility] [id number] NADIM ANABAPTIST 10/15/2011 10/15/2011 [facility] [id number] HEDY HORAN 11/09/2011 11/09/2011 [facility] [id number] JUSTINA COHEN 11/10/2011 11/10/2011 [facility] [id number] NADIM ANABAPTIST 04/16/2012 04/16/2012 [facility] [id number] DREW FUNG 04/22/2012 04/22/2012 [facility] [id number] ALFONSO SAAVEDRA 07/08/2012 07/08/[address] [facility] [id number] 06 Alfonso Zaragoza 06/10/2014 06/10/2014 [facility] [id number] Dat Elkins 06/23/2014 06/23/2014 [facility] [id number] Nadim Jewish 10/30/2014 10/30/2014 [facility] [id number] Nadim Jewish 11/04/2014 11/04/2014 [facility] [id number] Artemio Gonzales 03/09/2015 03/10/2015 [facility] [id number] Michelle Lorenzo 03/17/2015 03/17/2015 [facility] [id number] Michelle Wellerowole 04/19/2015 04/19/2015 [facility] [id number] 13 Laurel Cottonsamm 04/21/2015 04/21/2015 [facility] [id number] 14 Axel ManzoRuffin 05/14/2015 05/14/2015 [facility] [id number] 15 Daly Sreekanth 06/11/2015 06/11/2015 [facility] [id number] 16 Tanvir Carrillo 09/21/2015 09/21/2015 [facility] [id number] 18 Sunil Eason 10/17/2015 10/17/2015 [facility] [id number] 19 Tanvir Carrillo 11/10/2015 11/10/2015 [facility] Inpatient [id number] Willie Lopez 12/02/2015 12/05/2015 [facility] lab results [id number] 12/09/2015 12/09/2015 [facility] [id number] Nadim Jewish 03/21/2016 03/22/2016 [facility] Emergency [id number] Janey Bailey 04/19/2016 04/19/2016 [facility] Emergency [id number] Priti Main 04/20/2016 04/20/2016 [facility] Emergency [id number] Nadim Jewish 05/25/2016 05/25/2016 [facility] Emergency [id number] Ángelamurray Gloria 06/19/2016 06/19/2016 [facility] Emergency [id number] Demetrio De Santiago 06/19/2016 06/20/2016 [facility] Emergency [id number] Ángela Akuhelder 07/07/2016 07/08/2016 [facility] Emergency [id number] Kate Beal 07/10/2016 07/10/2016 [facility] Emergency [id number] Priti Main 07/13/2016 07/13/2016 [facility] Emergency [id number] Michelle Lorenzo 09/16/2016 09/17/2016 [facility] Emergency [id number] Nemo Santiago 09/21/2016 09/21/2016 [facility] Emergency [id number] Francisco De Leon 10/24/2016 10/24/2016 [facility] Observation [id number] Yolanda Plata 07/30/2017 07/31/2017 [facility] TH [id number] OVARIAN CYST NON PHYSICIAN Cancel [facility] Outpatient [id number] OVARIAN CYST ARMINDA LENNOX Cancel [facility] Procedures Procedure Code Date Perfomer Comments Source Cholecystectomy [id number] [facility] D&C - Dilatation and curettage [id number] [id number] [facility] Assessment and Plan Assessment and Plan Date [...] --- --- 12/04 08:42 ---- --- ----- 1 8 98 21% 12/04 07:24 98.3 76 90/59 16 --- --- 12/04 04:01 97.6 66 103/64 1 8 99 --- 12/04 00:00 97.7 63 106/62 1 8 100 --- 24 Hr Tmax: 98.3F (36.83c) at 12/04 07:2 4 Vital Signs are the last 5 in [...] UIBC 333 Vitamin B12 Lvl 443 12/05/2015 [facility] No Data Provided for This Section Social History Social History Date Source Social History TypeResponse Alcohol Current, Type Beer, Wine, Liquor. Frequency: 1-2 times per month. Smoking Status Former smoker; Previous treatment: None; Exposure to Tobacco Smoke None; Cigarette Smoking Last 365 Days No; Reg Smoking Cessation Counseling No 12/03/2015 [facility] Social History TypeResponse Alcohol Current, Type Beer, Wine, Liquor. Frequency: 1-2 times per month. Smoking Status Former smoker; Previous treatment: None; Exposure to Tobacco Smoke None; Cigarette Smoking Last 365 Days No; Reg Smoking Cessation Counseling No 12/03/2015 [facility] Social History TypeResponse Alcohol Current, Type Beer, Wine, Liquor. Frequency: 1-2 times per month. 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 Status , Is nicarag[place] your prim bradley language? Yes Sep 29, 2015 Flu Vaccine: [...] Status: Yes, Type: Rarely 1 drink a m onth Sep 29, 2015 09/29/2015 [facility] Family History No Data Provided for This Section Advance Directives No Data Provided for This Section Functional Status No Data Provided for This Section
--- OUTSIDE RECORDS SUMMARY | 2020-01-23 21:19 | XMS REPORT ---
Author Author [facility] t Organization [facility] Address [address] [facility] [address] [place] [address] Phone Unavailable Care Team Providers Care Lion Tamer Name Role Phone SHERRY HOLLOWAY MD PCP Zita SALAS Attphys Unavailable Pallavi LLANOS Attphys Unavailable Yolanda Plata Attphys Francisco De Leon Attphys Laura Santiago Attphys Vaishali Lorenzoorah Attphys Alexsandra Main Attphys Karen Ventura Attphys MalcolmdoloresNichole segurai Attphys [phone] AnyiChayo Demetrio Attphys Gregg Richardson Nadim Attphys Stevie Bailey Attphys JessicaPallavi madera Willie Attphys Sravan Carrillo Attphys Sunil Eason Attphys Daly Stack Attphys RuffinMaged lima Attphys [phone] PhaLaurel quijano Attphys Lety Gonzales Attphys Roque Elkins Attphys Dylan Zaragoza Attphys Yolanda Plata Admphys Jessica, Pallavi Willie Admphys Payers Payer Name Policy Type Policy Number Effective Date Expiration Date Pallavi fried [facility] [id number] C [facility] [id number] [facility] [id number] C [facility] Problems This patient has no known problems. Allergies, Adverse Reactions, Alerts Allergy Name Allergy Type Status Severity Reaction(s) Onset Date Inacti ve Date Treating Clinician Comments Source Nitrous oxide Allergy to Substance Active Mild 2019-12-15 00:00: 00 [facility] Hydrocodone Allergy to Substance Active Moderate 2019-12-15 00:00: 00 [facility] Erythromycin base Allergy to Substance Active Mild 2019-12-15 00 :00:00 [facility] Ciprofloxacin Allergy to Substance Active Mild 2019-12-15 00:00: 00 [facility] Butorphanol Allergy to Substance Active Mild 2019-12-15 00:00:00 [facility] Aspirin Allergy to Substance Active Unknown 2019-05-16 00:00:00 [facility] butorphanol tartrate DA Active SV 2019-03-11 00:00:00 [facility] nitrous oxide DA Active U 2019-03-11 00:00:00 [facility] hydrocodone DA Active [place] 2019-03-11 00:00:00 [facility] aspirin DA Active SV 2019-03-11 00:00:00 [facility] ibuprofen DA Active MO 2019-03-11 00:00:00 [facility] erythromycin base DA Active NH 2019-03-11 00:00:00 [facility] ciprofloxacin DA Active [place] 2019-03-11 00:00:00 [facility] promethazine DA Active SV 2019-03-11 00:00:00 [facility] Promethazine Allergy to Substance Active Mild 2018-07-05 00:00:0 0 [facility] aspirin DA Active SV 2017-07-20 00:00:00 [facility] ibuprofen DA Active MO 2017-07-10 00:00:00 [facility] butorphanol tartrate DA Active SV 2017-06-11 00:00:00 [facility] nitrous oxide DA Active U 2017-06-11 00:00:00 [facility] hydrocodone DA Active NH 2017-06-11 00:00:00 [facility] erythromycin base DA Active NH 2017-06-11 00:00:00 [facility] ciprofloxacin DA Active NH 2017-06-11 00:00:00 [facility] promethazine DA Active SV 2017-06-11 00:00:00 [facility] Medications Ordered Medication Name Filled Medication Name Start Date Stop Da te Current Medication? Ordering Clinician Indication Dosage Frequency Signature (SIG) Comments Components Source Butalbital/Aspirin/Caffeine (Fiorinal 50-325-40 Mg Cap dillon) 1 Each Capsule Butalbital/Aspirin/Caffeine (Fiorinal 50-325-40 Mg Capsule) 1 Each Capsule 2018-06-16 00:00:00 Yes Rufus Brown Plastic Frame Inserter 2 Every 4 Hours as needed for Headache [facility] Metformin Hcl 500 Mg Tablet Metformin Hcl 500 Mg Tablet 2018-06-16 00:00:00 Yes Rufus Brown Plastic Frame Inserter 1000 Twice A Day [facility] Procedures Procedure Date / Time Performed Performing Clinician [facility] e X-ray of chest, two views 2019-12-13 00:00:00 ADI SALAS [facility] X-ray of chest, two views 2019-09-05 00:00:00 ADI SALAS [facility] Encounters Start Date/Time End Date/Time Encounter Type Admission Type Attendi [facility] Care Department Encounter ID Source 2019-12-15 12:37:00 2019-12-15 13:15:00 Departed Emergency Room [facility] [id number] [facility] 2019-12-13 19:36:00 2019-12-14 00:15:00 Departed Emergency Room 1 LELIA SALAS [facility] [id number] [facility] 2019-09-05 20:53:00 2019-09-06 00:10:00 Departed Emergency Room 1 LELIA SALAS [facility] [id number] [facility] 2019-05-16 15:48:00 2019-05-16 16:58:00 Departed Emergency Room [facility] [id number] [facility] 2018-06-16 13:51:00 2018-06-16 16:38:00 Departed Emergency Room 1 KAYLA LLANOS [facility] [id number] [facility] 2017-07-30 08:38:00 2017-07-30 20:48:00 Outpatient Yolanda Plata [id number] [facility] 2016-10-24 00:23:00 2016-10-24 02:10:00 Outpatient Francisco De Leon [facility] [id number] [facility] 2016-09-21 12:00:00 2016-09-21 15:37:00 Outpatient Nemo Santiago [facility] [id number] [facility] 2016-09-16 13:53:00 2016-09-16 18:34:00 Outpatient Lauren Humphriesjose Tom [facility] [id number] [facility] 2016-07-12 23:42:00 2016-07-13 03:24:00 Outpatient Priti Main [facility] [id number] [facility] 2016-07-10 12:27:00 2016-07-10 16:52:00 Outpatient Tarik Ventura maria del carmen Jones [facility] [id number] [facility] 2016-07-07 16:41:00 2016-07-07 19:36:00 Outpatient A Ángela matthew [facility] [id number] [facility] 2016-06-19 15:23:00 2016-06-19 20:52:00 Outpatient Jamil De Santiago [facility] [id number] [facility] 2016-06-18 20:10:00 2016-06-18 23:45:00 Outpatient A Ángela matthew [facility] [id number] [facility] 2016-05-25 07:33:00 2016-05-25 10:15:00 Outpatient Titus Richardson [facility] [id number] [facility] 2016-04-20 00:14:00 2016-04-20 04:45:00 Outpatient Priti Main [facility] [id number] [facility] 2016-04-18 19:21:00 2016-04-19 00:01:00 Outpatient Marito Bailey sabrina Hubbard [facility] [id number] [facility] 2016-03-21 15:07:00 2016-03-21 19:58:00 Outpatient Titus Richardson [facility] [id number] [facility] 2015-12-09 12:20:00 2015-12-09 12:20:00 Outpatient [facility] [id number] [facility] 2015-12-02 14:46:00 2015-12-05 14:57:00 Outpatient Adan Lopez [facility] [id number] [facility] 2015-11-09 22:38:00 2015-11-10 03:53:00 Outpatient Marito Carrillo [facility] [id number] [facility] 2015-10-16 23:14:00 2015-10-16 23:45:00 Outpatient Sunil Eason [facility] [id number] [facility] 2015-09-21 08:57:00 2015-09-21 10:14:00 Outpatient Marito Carrillo SE [facility] [id number] [facility] 2015-06-10 20:18:00 2015-06-11 04:39:00 Outpatient Daly Stack [facility] [id number] [facility] 2015-05-14 08:23:00 2015-05-14 09:11:00 Outpatient Axel Santos [facility] [id number] [facility] 2015-04-21 12:33:00 2015-04-21 16:16:00 Outpatient Laurel Sim [facility] [id number] [facility] 2015-04-18 22:49:00 2015-04-19 01:18:00 Outpatient Michelle Humphries [facility] [id number] [facility] 2015-03-16 20:42:00 2015-03-16 21:02:00 Outpatient Michelle Humphries IENDT [facility]ALT [id number] 2015-03-09 16:12:00 2015-03-10 00:15:00 Outpatient Artemio Mora [facility] [id number] 2014-11-04 08:17:00 2014-11-04 13:12:00 Outpatient Nahomy Richardson jossie Gregg [facility] [id number] 2014-10-30 07:50:00 2014-10-30 10:24:00 Outpatient Nahomy Richardson jossie Gregg [facility] [id number] 2014-06-23 08:24:00 2014-06-23 11:18:00 Outpatient Dat Elkinsyael [facility] [id number] 2014-06-10 03:50:00 2014-06-10 06:30:00 Outpatient Bethany Zaragoza IEALT [facility] [id number] Results Test Description Test Time Test Comments Results Result Comments Source CHEST 2 VIEWS 2019-12-13 23:16:00 [place] [address] Patient Name: ROXANA HUERTA MR #: [id number] : 1985 Age/Sex: 34/F Req #: [id number] Adm Physician: Ordered by: LELIA SALAS MD Report #: [id number] Location: ER Room/Bed: Procedure: [id number] DX/CHEST 2 VIEWS Exam Date: 12/13/19 Exam Time: 2249 REPORT STATUS: Signed EXAMINATION: CHEST 2 VIEWS INDICATION: Shortness of breath, cough cough [id number] Y COMPARISON: Chest x-ray 09/05/2019 FINDINGS: PA and lateral views TUBES and LINES: None. LUNGS: Lungs are well inflated. There is no evidence of pneumonia or pulmonary edema. PLEURA: No pleural effusion or pneumothorax. HEART AND MEDIASTINUM: The cardiomediastinal silhouette is unremarkable.. BONES AND SOFT TISSUES: No focal osseous lesions. Soft tissues are unremarkable. UPPER ABDOMEN: Cholecystectomy clips in the right upper quadrant. IMPRESSION: No acute thoracic abnormality. Signed by: Dr. Ronny Khanna MD on 12/13/2019 11:16 PM Dictated By: RONNY KHANNA MD 15 Transcribed By: LC on 12/13/192315 COPY TO: LELIA SALAS MD Influenza Virus Types A,B Antigen 2019-12-13 22:22:00 Test Item Influenza Virus Types A,B Antigen (test code = 64486-6) NEGATIVE [facility]GATIVE [facility] Streptococcus [id number] 22:22:00* Test Item Value Reference Range Interpretation Comments Group A Streptococcus Screen (test code = 53589-2) NEGATIVE NEG ATIVE [facility] [id number] 22:55:00* Test Item Value Reference Range Interpretation Comments Urine WBC (test code = 5821-4) 21-50 0-5 [facility] [id number] 22:55:00* Test Item Value Reference Range Interpretation Comments Urine RBC (test code = 87576-8) 11-20 0-5 [facility] [id number] 22:55:00* Test Item Value Reference Range Interpretation Comments Urine Bacteria (test code = 19445-0) MODERATE NONE [facility] Epithelial [id number] 22:55:00 * Test Item Value Reference Range Interpretation Comments Urine Epithelial Cells (test code = 26275-7) FEW NONE [facility] [id number] 22:55:00* Test Item Value Reference Range Interpretation Comments Urine Mucus (test code = 8247-9) MODERATE RARE [facility] 2 [id number] 22:55:00 [facility] [address] [address] Patient Name: ROXANA HUERTA MR #: [id number] : 1985 Age/Sex: 33/F Req #: [id number] Adm Physician: Ordered by: LELIA SALAS MD Report #: [id number] Location: ER Room/Bed: Procedure: [id number] DX/CHEST 2 VIEWS Exam Date: 09/05/19 Exam Tavon e: 2226 REPORT STATUS: Signed EX AMINATION: CHEST 2 VIEWS INDICATION: FEVER, COUGH [id number] 2 226 Y COMPARISON: None FINDINGS: PA and lateral views T UBES and LINES: None. LUNGS: Lungs are well inflated. There is no eviden ce of pneumonia or pulmonary edema. PLEURA: No pleural effusion or pneum othorax. HEART AND MEDIASTINUM: The cardiomediastinal silhouette is unrema rkable.. BONES AND SOFT TISSUES: No focal osseous lesions. Soft tissue s are unremarkable. UPPER ABDOMEN: Cholecystectomy clips in the right upp er quadrant. IMPRESSION: No acute thoracic abnormality. Signed by: Dr. Ronny Khanna MD on 09/05/2019 10:55 PM Dictated By: CHESTER KHANNA MD 54 Transcribed By: LC on 09/05/192254 COPY TO: LELIA SALAS Urine [id number] 22:37:00* Test Item Value Reference Range Interpretation Comments Urine Color (test code = 5778-6) YELLOW YELLOW [facility] [id number] 22:37:00* Test Item Value Reference Range Interpretation Comments Urine Clarity (test code = 05227-8) CLEAR CLEAR [facility] Specific [id number] 22:37:00 * Test Item Value Reference Range Interpretation Comments Urine Specific [place] (test code = 5811-5) >=1.030 1.010-1.02 5 [facility] [id number] 22:37:00* Test Item Value Reference Range Interpretation Comments Urine pH (test code = 36467-9) 6 5-7 [facility] Leukocyte [id number] 22:37:00* Test Item Value Reference Range Interpretation Comments Urine Leukocyte Esterase (test code = 21159-0) TRACE NEGATIV E [facility] [id number] 22:37:00* Test Item Value Reference Range Interpretation Comments Urine Nitrite (test code = 75843-7) NEGATIVE NEGATIVE [facility] [id number] 22:37:00* Test Item Value Reference Range Interpretation Comments Urine Protein (test code = 78970-7) NEGATIVE NEGATIVE [facility] Glucose (UA)2019-09-05 22:37:00* Test Item Value Reference Range Interpretation Comments Urine Glucose (UA) (test code = 16103-3) 1+ NEGATIVE [facility] [id number] 22:37:00* Test Item Value Reference Range Interpretation Comments Urine Ketones (test code = 44904-4) TRACE NEGATIVE [facility] [id number] 22:37:00* Test Item Value Reference Range Interpretation Comments Urine Urobilinogen (test code = 14744-1) 0.2 0.2-1 [facility] [id number] 22:37:00* Test Item Value Reference Range Interpretation Comments Urine Bilirubin (test code = 1977-8) NEGATIVE NEGATIVE [facility] [id number] 22:37:00* Test Item Value Reference Range Interpretation Comments Urine Blood (test code = 44942-3) TRACE NEGATIVE [facility] [id number] 22:36:00* Test Item Value Reference Range Interpretation Comments Urine Test (test code = 2106-3) NEGATIVE NEGATIVE [facility]- XR FOOT 3 + V [id number] 23:40:00 FAX: Tamika Taylor [place]: B St: REG FAX: Kelly Gilbert MD [phone] Name: ROXANA HUERTA [facility] : 1985 Age/S: 33/F [address] Unit #: [id number] Loc: [place] [address] Phys: Tamika Taylor NP Acct: [id number] Dis Date: Status: REG ER PHONE #: [phone] Exam Date: 05/15/2019 2328 FAX #: [phone] Reason: GREAT TOE INJURY EXAMS: CPT CODE: [id number] XR FOOT 3 + V LT [address] - XR FOOT 3 + V LT, 05/15/2019 10:06 PM Reason For Examination: GREAT TOE INJURY Comparison: None available Location: R16: Findings: No evidence of acute f racture or dislocation. No radiopaque foreign body. Impre ssion: No plain film evidence of acute fracture or dislocation at 4920 Re ported and signed by: Gely Eugene M.D. CC: Tamika Taylor FAST FOOD SHIFT LEAD; Kelly Gilbert MD Technologist: Cedric SEGURA( R) Trnscrd Date/Time/By: 05/15/2019 (0024) : By : [email or web address] Orig Print D/T: S: 05/15/2019 (0415) PAGE 1 Signed Report - XR CHEST 1 [id number] 18:18:00 FAX: Sangeetha Robert DO [place]: St: REG Name: ROXANA KEBEDE [facility] : [birth year] Age/S: 33/F [address] [facility] Unit #: [id number] Loc: [place] [address] Phys: Sangeetha Robert DO Acct: [id number] Dis Date: Status: REG ER PHONE #: [phone] Exam Date: 03/11/2019 1750 FAX #: [phone] Reason: dyspnea EXAMS: CPT CODE: [id number] XR CHEST 1 V 64695 REASON FOR EXAM: dyspnea EXAM ORDER DATE: 03/11/2019 5:28 PM Ordering MNewton: Sangeetha Robert DO PROCEDURE: - XR CHEST 1 V COMPARISON: 02/13/2019 FINDINGS: Portable AP frontal view of the chest obtained at 5:49 PM shows clear lungs without evidence of consolidation. There is no evidence of effusion. The heart size is within normal limits. Pulmonary vasculatures are unremarkable. IMPRESSION: No active disease. at 1818 Reported and signed by: Stevie Mendez M.D. CC: Sangeetha Robert DO Technologist: Sayda Lyles(Zachary) Trnscrd Date/Time/By: 10/2018 (1817) : By: AlejandraL Orig Print D/T: S: 03/11/2019 (1820) PAGE 1 Signed Report DRUGS OF ABUSE SCREEN [id number] 17:55:00* Test Item Value Reference Range Interpretation Comments UA PH DIPSTICK (test code = ANISA) 6.0 5.0-8.0 URN COCAINE (test code = COCAURN) NEGATIVE <300 ng/mL URN CANNABINOIDS (test code = CANNABURN) NEGATIVE <50 ng/mL URN AMPHETAMINE (test code = AMPHETURN) NEGATIVE <1000 ng/mL URN BARBITURATE (test code = BARBITURN) NEGATIVE <200 ng/mL URN BENZODIAZEPINE (test code = BENZOURN) NEGATIVE <200 ng/mL URN OPIATES (test code = OPIATURN) NEGATIVE <300 ng/mL URN PHENCYCLIDINE (PCP) (test code = PHENCURN) NEGATIVE <25 ng/ mL URN METHADONE (test code = METHAURN) NEGATIVE <300 ng/mL DRUGS OF ABUSE SCREEN [id number] 17:43:00* Test Item Value Reference Range Interpretation Comments UA PH DIPSTICK (test code = ANISA) 6.0 5.0-8.0 URN COCAINE (test code = COCAURN) <300 ng/mL URN CANNABINOIDS (test code = CANNABURN) <50 ng/mL URN AMPHETAMINE (test code = AMPHETURN) <1000 ng/mL URN BARBITURATE (test code = BARBITURN) <200 ng/mL URN BENZODIAZEPINE (test code = BENZOURN) <200 ng/mL URN OPIATES (test code = OPIATURN) <300 ng/mL URN PHENCYCLIDINE (PCP) (test code = PHENCURN) <25 ng/ mL URN METHADONE (test code = METHAURN) <300 ng/mL BASIC METABOLIC [id number] 17:07:00* Test Item Value Reference Range Interpretation Comments SODIUM (test code = NA) 134 mmol/L 136-145 L POTASSIUM (test code = K) 3.8 mmol/L 3.5-5.1 N CHLORIDE (test code = CL) 103.0 mmol/L 98-107 N CARBON DIOXIDE (test code = CO2) 24.0 mmol/L 21-32 N ANION GAP (test code = GAP) 10.8 10-20 N GLUCOSE (test code = GLU) 246 mg/dL 74-106 H BLOOD UREA NITROGEN (test code = BUN) 13 mg/dL 7-18 N GLOMERULAR FILTRATION RATE (test code = GFR) > 60 mL/min >=60 Estimated GFR by using Modified MDRD formula.Chronic kidney disease is defined as either kidney damageor GFR <60 mL/min/1.73 m2 for >3 months. CREATININE (test code = CREAT) 0.80 mg/dL 0.55-1.02 N Note change in reference range due to change in reagent. BUN/CREATININE RATIO (test code = BUN/CREA) 16.3 10-20 N CALCIUM (test code = CA) 8.8 mg/dL 8.5-10.1 N HEPATIC FUNCTION [id number] 17:07:00* Test Item Value Reference Range Interpretation Comments TOTAL PROTEIN (test code = PROT) 7.1 gram/dL 6.4-8.2 N ALBUMIN (test code = ALB) 3.2 g/dL 3.4-5.0 L GLOBULIN (test code = GLOB) 3.9 gram/dL 2.7-4.2 N ALBUMIN/GLOBULIN RATIO (test code = A/G) 0.8 0.75-1.50 N BILIRUBIN TOTAL (test code = BILT) 0.30 mg/dL 0.0-1.0 N BILIRUBIN DIRECT (test code = BILD) 0.08 mg/dL 0.0-0.20 N SGOT/AST (test code = AST) 17 IUnit/L 15-37 N SGPT/ALT (test code = ALT) 32 IUnit/L 12-78 N ALKALINE PHOSPHATASE TOTAL (test code = ALKP) 95 IUnit/L 45-117 N Note change in reference range due to change in reagent. HCG SERUM [id number] 17:07:00* Test Item Value Reference Range Interpretation Comments HCG SERUM BETA (test code = HCG) < 1.0 mIU/mL 0-3 N INTERPRETATION:B-HCG LEVELS <5 SHOULD BE CONSIDERED "NEGATIVE." *WHEN BODERLINE RESULTS ARE ENCOUNTERED,PATIENT SAMPLESSHOULD BE REDRAWN 48 HOURS. 0-1 WEEKS AFTER CONCEPTION 5-50 MIU/ML1-2 WEEKS AFTER CONCEPTION 50-500 MIU/ML2-3 WEEKS AFTER CONCEPTION 100 -5,000 MIU/ML3-4 WEEKS AFTER CONCEPTION 500-10,000 MIU/ML4-5 WEEKS AFTER CONCEPTION 1000 -50,000 MIU/ML5-6 WEEKS AFTER CONCEPTION 10,000-100,000 MIU/ML6-8 WEEKS AFTER CONCEPTION 15,000- 200,000 MIU/ML2-3 MONTHS AFTER CONCEPTION 10,000-100,000 MIU/ML [id number] 17:07:00* Test Item Value Reference Range Interpretation Comments TROPONIN-I (test code = TROPI) <0.015 ng/mL 0-0.045 N CBC W/O [id number] 17:02:00* Test Item Value Reference Range Interpretation Comments WHITE BLOOD CELL (test code = WBC) 8.3 K/mm3 4.5-12.5 N RED BLOOD CELL (test code = RBC) 4.68 mill/mm3 3.7-5.2 N HEMOGLOBIN (test code = HGB) 11.0 gram/dL 11.5-15.5 L HEMATOCRIT (test code = HCT) 35.6 % 36.0-46.0 L MEAN CELL VOLUME (test code = MCV) 76.1 fL 80-98 L MEAN CELL HGB (test code = MCH) 23.5 picogram 27.0-33.0 L MEAN CELL HGB CONCETRATION (test code = MCHC) 30.9 gram/dL 33.0-36. 0 L RED CELL DISTRIBUTION WIDTH (test code = RDW) 15.9 % 11.6-16. 2 N PLATELET COUNT (test code = PLT) 369 K/mm3 150-450 N MEAN PLATELET VOLUME (test code = MPV) 11.0 fL 6.7-11.0 N BASIC METABOLIC [id number] 16:50:00* Test Item Value Reference Range Interpretation Comments SODIUM (test code = NA) 134 mmol/L 136-145 L POTASSIUM (test code = K) 3.8 mmol/L 3.5-5.1 N CHLORIDE (test code = CL) 103.0 mmol/L 98-107 N CARBON DIOXIDE (test code = CO2) mmol/L 21-32 ANION GAP (test code = GAP) 10-20 GLUCOSE (test code = GLU) mg/dL 74-106 BLOOD UREA NITROGEN (test code = BUN) mg/dL 7-18 GLOMERULAR FILTRATION RATE (test code = GFR) mL/min >=60 CREATININE (test code = CREAT) mg/dL 0.55-1.02 BUN/CREATININE RATIO (test code = BUN/CREA) 10-20 CALCIUM (test code = CA) mg/dL 8.5-10.1 HEPATIC FUNCTION [id number] 16:50:00* Test Item Value Reference Range Interpretation Comments TOTAL PROTEIN (test code = PROT) gram/dL 6.4-8.2 ALBUMIN (test code = ALB) g/dL 3.4-5.0 GLOBULIN (test code = GLOB) gram/dL 2.7-4.2 ALBUMIN/GLOBULIN RATIO (test code = A/G) 0.75-1.50 BILIRUBIN TOTAL (test code = BILT) mg/dL 0.0-1.0 BILIRUBIN DIRECT (test code = BILD) mg/dL 0.0-0.20 SGOT/AST (test code = AST) IUnit/L 15-37 SGPT/ALT (test code = ALT) IUnit/L 12-78 ALKALINE PHOSPHATASE TOTAL (test code = ALKP) IUnit/L 45-117 HCG SERUM [id number] 16:50:00* Test Item Value Reference Range Interpretation Comments HCG SERUM BETA (test code = HCG) mIU/mL 0-3 [id number] 16:50:00* Test Item Value Reference Range Interpretation Comments TROPONIN-I (test code = TROPI) ng/mL 0-0.045 COMPREHENSIVE METABOLIC [id number] 21:51:00* Test Item Value Reference Range Interpretation Comments SODIUM (test code = NA) 138 mmol/L 136-145 N POTASSIUM (test code = K) 4.2 mmol/L 3.5-5.1 N CHLORIDE (test code = CL) 107.0 mmol/L 98-107 N CARBON DIOXIDE (test code = CO2) 25.0 mmol/L 21-32 N ANION GAP (test code = GAP) 10.2 10-20 N GLUCOSE (test code = GLU) 183 mg/dL 74-106 H BLOOD UREA NITROGEN (test code = BUN) 13 mg/dL 7-18 N GLOMERULAR FILTRATION RATE (test code = GFR) > 60 mL/min >=60 Estimated GFR by using Modified MDRD formula.Chronic kidney disease is defined as either kidney damageor GFR <60 mL/min/1.73 m2 for >3 months. CREATININE (test code = CREAT) 0.70 mg/dL 0.55-1.02 N Note change in reference range due to change in reagent. BUN/CREATININE RATIO (test code = BUN/CREA) 18.6 10-20 N TOTAL PROTEIN (test code = PROT) 7.0 gram/dL 6.4-8.2 N ALBUMIN (test code = ALB) 3.2 g/dL 3.4-5.0 L GLOBULIN (test code = GLOB) 3.8 gram/dL 2.7-4.2 N ALBUMIN/GLOBULIN RATIO (test code = A/G) 0.8 0.75-1.50 N CALCIUM (test code = CA) 8.6 mg/dL 8.5-10.1 N BILIRUBIN TOTAL (test code = BILT) 0.20 mg/dL 0.0-1.0 N SGOT/AST (test code = AST) 13 IUnit/L 15-37 L SGPT/ALT (test code = ALT) 22 IUnit/L 12-78 N ALKALINE PHOSPHATASE TOTAL (test code = ALKP) 82 IUnit/L 45-117 N Note change in reference range due to change in reagent. Specimen 4+ Hemolysed.Results MAY NOT be accurate due to hemolysis.LIPASE 2019-02-13 21:51:00* Test Item Value Reference Range Interpretation Comments LIPASE (test code = LIP) 221 U/L 73.0-393.0 N Specimen 4+ Hemolysed.Results MAY NOT be accurate due to hemolysis.CKMB 2019-02-13 21:51:00* Test Item Value Reference Range Interpretation Comments CKMB (test code = CKMBT) < 1.0 ng/mL 0-6.0 N Specimen 4+ Hemolysed.Results MAY NOT be accurate due to hemolysis.TROPONIN-I 2019-02-13 21:51:00* Test Item Value Reference Range Interpretation Comments TROPONIN-I (test code = TROPI) <0.015 ng/mL 0-0.045 N Specimen 4+ Hemolysed.Results MAY NOT be accurate due to hemolysis. COMPREHENSIVE METABOLIC [id number] 21:31:00* Test Item Value Reference Range Interpretation Comments SODIUM (test code = NA) 138 mmol/L 136-145 N POTASSIUM (test code = K) 4.2 mmol/L 3.5-5.1 N CHLORIDE (test code = CL) 107.0 mmol/L 98-107 N CARBON DIOXIDE (test code = CO2) mmol/L 21-32 ANION GAP (test code = GAP) 10-20 GLUCOSE (test code = GLU) mg/dL 74-106 BLOOD UREA NITROGEN (test code = BUN) mg/dL 7-18 GLOMERULAR FILTRATION RATE (test code = GFR) mL/min >=60 CREATININE (test code = CREAT) mg/dL 0.55-1.02 BUN/CREATININE RATIO (test code = BUN/CREA) 10-20 TOTAL PROTEIN (test code = PROT) gram/dL 6.4-8.2 ALBUMIN (test code = ALB) g/dL 3.4-5.0 GLOBULIN (test code = GLOB) gram/dL 2.7-4.2 ALBUMIN/GLOBULIN RATIO (test code = A/G) 0.75-1.50 CALCIUM (test code = CA) mg/dL 8.5-10.1 BILIRUBIN TOTAL (test code = BILT) mg/dL 0.0-1.0 SGOT/AST (test code = AST) IUnit/L 15-37 SGPT/ALT (test code = ALT) IUnit/L 12-78 ALKALINE PHOSPHATASE TOTAL (test code = ALKP) IUnit/L 45-117 Specimen 4+ Hemolysed.Results MAY NOT be accurate due to hemolysis.LIPASE 2019-02-13 21:31:00* Test Item Value Reference Range Interpretation Comments LIPASE (test code = LIP) U/L 73.0-393.0 Specimen 4+ Hemolysed.Results MAY NOT be accurate due to hemolysis.CKMB 2019-02-13 21:31:00* Test Item Value Reference Range Interpretation Comments CKMB (test code = CKMBT) ng/mL 0-6.0 Specimen 4+ Hemolysed.Results MAY NOT be accurate due to hemolysis.TROPONIN-I 2019-02-13 21:31:00* Test Item Value Reference Range Interpretation Comments TROPONIN-I (test code = TROPI) ng/mL 0-0.045 Specimen 4+ Hemolysed.Results MAY NOT be accurate due to hemolysis.CBC W/AUTO [id number] 21:30:00* Test Item Value Reference Range Interpretation Comments WHITE BLOOD CELL (test code = WBC) 11.1 K/mm3 4.5-12.5 N RED BLOOD CELL (test code = RBC) 4.70 mill/mm3 3.7-5.2 N HEMOGLOBIN (test code = HGB) 11.0 gram/dL 11.5-15.5 L HEMATOCRIT (test code = HCT) 36.8 % 36.0-46.0 N MEAN CELL VOLUME (test code = MCV) 78.3 fL 80-98 L MEAN CELL HGB (test code = MCH) 23.4 picogram 27.0-33.0 L MEAN CELL HGB CONCETRATION (test code = MCHC) 29.9 gram/dL 33.0-36. 0 L RED CELL DISTRIBUTION WIDTH (test code = RDW) 16.5 % 11.6-16. 2 H RED CELL DISTRIBUTION WIDTH SD (test code = RDW-SD) 46.9 fL 37 .0-51.0 N PLATELET COUNT (test code = PLT) 346 K/mm3 150-450 N MEAN PLATELET VOLUME (test code = MPV) 11.1 fL 6.7-11.0 H NEUTROPHIL % (test code = NT%) 62.4 % 39.0-69.0 N IMMATURE GRANULOCYTE % (test code = IG%) 0.4 % 0.0-5.0 N LYMPHOCYTE % (test code = LY%) 28.5 % 25.0-55.0 N MONOCYTE % (test code = MO%) 6.2 % 0.0-10.0 N EOSINOPHIL % (test code = EO%) 2.0 % 0.0-5.0 N BASOPHIL % (test code = BA%) 0.5 % 0.0-1.0 N NUCLEATED RBC % (test code = NRBC%) 0.0 % 0-0 N NEUTROPHIL # (test code = NT#) 6.93 K/mm3 1.8-7.7 N IMMATURE GRANULOCYTE # (test code = IG#) 0.04 x10 3/uL 0-0.03 H LYMPHOCYTE # (test code = LY#) 3.17 K/mm3 1.0-5.0 N MONOCYTE # (test code = MO#) 0.69 K/mm3 0-0.8 N EOSINOPHIL # (test code = EO#) 0.22 K/mm3 0.0-0.5 N BASOPHIL # (test code = BA#) 0.06 K/mm3 0.0-0.2 N NUCLEATED RBC # (test code = NRBC#) 0.00 K/mm3 0.0-0.1 N MANUAL DIFF REQUIRED (test code = MDIFF) NO, ONLY SCAN NEEDED DIFFERENTIAL [id number] 21:30:00* Test Item Value Reference Range Interpretation Comments STAIN ACCEPTABILITY (test code = STN ACCEPTABLE) STAIN ACCEPTABLE POIKILOCYTOSIS (test code = POIK) 1+ ANISOCYTOSIS (test code = ANISO) 1+ MICROCYTOSIS (test code = MICR) 1+ ELLIPTOCYTES (test code = ELL) 1+ PLATELET ESTIMATE (test code = PLTEST) ADEQUATE PLATELET MORPHOLOGY (test code = PLTMORPH) SIZE VARIABLE CBC W/AUTO [id number] 21:18:00* Test Item Value Reference Range Interpretation Comments WHITE BLOOD CELL (test code = WBC) 11.1 K/mm3 4.5-12.5 N RED BLOOD CELL (test code = RBC) 4.70 mill/mm3 3.7-5.2 N HEMOGLOBIN (test code = HGB) 11.0 gram/dL 11.5-15.5 L HEMATOCRIT (test code = HCT) 36.8 % 36.0-46.0 N MEAN CELL VOLUME (test code = MCV) 78.3 fL 80-98 L MEAN CELL HGB (test code = MCH) 23.4 picogram 27.0-33.0 L MEAN CELL HGB CONCETRATION (test code = MCHC) 29.9 gram/dL 33.0-36. 0 L RED CELL DISTRIBUTION WIDTH (test code = RDW) 16.5 % 11.6-16. 2 H RED CELL DISTRIBUTION WIDTH SD (test code = RDW-SD) 46.9 fL 37 .0-51.0 N PLATELET COUNT (test code = PLT) 346 K/mm3 150-450 N MEAN PLATELET VOLUME (test code = MPV) 11.1 fL 6.7-11.0 H NEUTROPHIL % (test code = NT%) 62.4 % 39.0-69.0 N IMMATURE GRANULOCYTE % (test code = IG%) 0.4 % 0.0-5.0 N LYMPHOCYTE % (test code = LY%) 28.5 % 25.0-55.0 N MONOCYTE % (test code = MO%) 6.2 % 0.0-10.0 N EOSINOPHIL % (test code = EO%) 2.0 % 0.0-5.0 N BASOPHIL % (test code = BA%) 0.5 % 0.0-1.0 N NUCLEATED RBC % (test code = NRBC%) 0.0 % 0-0 N NEUTROPHIL # (test code = NT#) 6.93 K/mm3 1.8-7.7 N IMMATURE GRANULOCYTE # (test code = IG#) 0.04 x10 3/uL 0-0.03 H LYMPHOCYTE # (test code = LY#) 3.17 K/mm3 1.0-5.0 N MONOCYTE # (test code = MO#) 0.69 K/mm3 0-0.8 N EOSINOPHIL # (test code = EO#) 0.22 K/mm3 0.0-0.5 N BASOPHIL # (test code = BA#) 0.06 K/mm3 0.0-0.2 N NUCLEATED RBC # (test code = NRBC#) 0.00 K/mm3 0.0-0.1 N MANUAL DIFF REQUIRED (test code = MDIFF) NO, ONLY SCAN NEEDED DIFFERENTIAL [id number] 21:18:00* Test Item Value Reference Range Interpretation Comments STAIN ACCEPTABILITY (test code = STN ACCEPTABLE) POIKILOCYTOSIS (test code = POIK) 1+ ANISOCYTOSIS (test code = ANISO) 1+ MICROCYTOSIS (test code = MICR) 1+ ELLIPTOCYTES (test code = ELL) 1+ PLATELET ESTIMATE (test code = PLTEST) ADEQUATE PLATELET MORPHOLOGY (test code = PLTMORPH) SIZE VARIABLE - XR CHEST 2 [id number] 21:09:00 FAX: Rosy Orantes [phone] [place]: St: REG Name: Gregg ROXANA PABLO [facility] : [birth year] Age/S: 33/F [address] Unit #: [id number] Loc: [place] [address] Phys: Rosy Hobson MD Acct: [id number] Dis Date: Status: REG ER PHONE #: [phone] Exam Date: 02/13/20192103 FAX #: [phone] Reason: cp EXAMS: CPT CODE: [id number] XR CHEST 2 V [id number] REASON FOR EXAM: cp Exam Order Date: 02/13/2019 7:22 PM Ordering Adil[place]: oRsy Hobson MD PROCEDURE: - XR CHEST 2 V COMPARISON: FINDINGS: PA and lateral views of the chest show clear lungs with out evidence of consolidation. No evidence of effusion. The heart size is within normal limits. Pulmonary vasculatures are unremarkable. The o sseous structures are grossly intact. IMPRESSION: No active dise ase. at 9 Reported and signed by: Stevie Mendez M.D. CC: Rosy Hobson MD Technologist: RT Stefano(R Trnscrd Date/Time/By: 02/14/20 19 (2108) : By: MarvinVTL Orig Print D/T: S: 02/13/2019 (2111) PAGE 1 Signed Report AB HELICOBACTER [id number] 21:07:00* Test Item Value Reference Range Interpretation Comments AB HELICOBACTER IGG (test code = HELIGAB) NEGATIVE NEGATIVE URINALYSIS [id number] 20:58:00* Test Item Value Reference Range Interpretation Comments UA COLOR (test code = COLU) YELLOW YELLOW UA APPEARANCE (test code = APPU) CLEAR CLEAR UA GLUCOSE DIPSTICK (test code = DGLUU) 1000 (3+) mg/dL NEGATIVE A UA BILIRUBIN DIPSTICK (test code = BILU) NEGATIVE mg/dL NEGATIVE UA KETONE DIPSTICK (test code = KETU) TRACE mg/dL NEGATIVE A UA SPECIFIC GRAVITY (test code = SGU) 1.038 1.001-1.035 UA BLOOD DIPSTICK (test code = JASMINE) 0.06 mg/dL (1+) mg/dL NEGATIVE A UA PH DIPSTICK (test code = ANISA) 6.5 5.0-8.0 UA PROTEIN DIPSTICK (test code = PROU) 20 (Trace) mg/dL NEGATIVE A UA UROBILINIOGEN DIPSTICK (test code = URO) Normal mg/dL NEGATIVE UA NITRITE DIPSTICK (test code = YOUSIF) NEGATIVE NEGATIVE UA LEUKOCYTE ESTERASE W REFLEX (test code = LEUUR) 75 [place]/uL (1+) [place]/uL NEGATIVE A UA WBC (test code = WBCU) 6-10 per HPF 0-5 A UA RBC (test code = RBCU) 3-5 #/HPF 0-5 UA EPITHELIAL CELLS (test code = EPIU) FEW per HPF FEW UA BACTERIA (test code = BACU) FEW #/HPF NONE A UA MUCUS (test code = MUCU) FEW #/LPF FEW Urine Source? Clean CatchUR HCG [id number] 20:58:00* Test Item Value Reference Range Interpretation Comments UR HCG QUAL (test code = HCGQLU) NEGATIVE This HCGQL test is NOT applicable for MALE patients.Check with nurse about probable order error.If Tumor Marker Test needed, nurse should order test "HCGTU"(Test #[id number]) Urine Source? Clean CatchURINALYSIS [id number] 20:57:00* Test Item Value Reference Range Interpretation Comments UA COLOR (test code = COLU) YELLOW YELLOW UA APPEARANCE (test code = APPU) CLEAR CLEAR UA GLUCOSE DIPSTICK (test code = DGLUU) 1000 (3+) mg/dL NEGATIVE A UA BILIRUBIN DIPSTICK (test code = BILU) NEGATIVE mg/dL NEGATIVE UA KETONE DIPSTICK (test code = KETU) TRACE mg/dL NEGATIVE A UA SPECIFIC GRAVITY (test code = SGU) 1.038 1.001-1.035 UA BLOOD DIPSTICK (test code = JASMINE) 0.06 mg/dL (1+) mg/dL NEGATIVE A UA PH DIPSTICK (test code = ANISA) 6.5 5.0-8.0 UA PROTEIN DIPSTICK (test code = PROU) 20 (Trace) mg/dL NEGATIVE A UA UROBILINIOGEN DIPSTICK (test code = URO) Normal mg/dL NEGATIVE UA NITRITE DIPSTICK (test code = YOUSIF) NEGATIVE NEGATIVE UA LEUKOCYTE ESTERASE W REFLEX (test code = LEUUR) 75 [place]/uL (1+) [place]/uL NEGATIVE A UA WBC (test code = WBCU) 6-10 per HPF 0-5 A UA RBC (test code = RBCU) 3-5 #/HPF 0-5 UA EPITHELIAL CELLS (test code = EPIU) FEW per HPF FEW UA BACTERIA (test code = BACU) FEW #/HPF NONE A UA MUCUS (test code = MUCU) FEW #/LPF FEW Urine Source? Clean CatchUR HCG [id number] 20:57:00* Test Item Value Reference Range Interpretation Comments UR HCG QUAL (test code = HCGQLU) Urine Source? Clean CatchURINALYSIS [id number] 20:52:00* Test Item Value Reference Range Interpretation Comments UA COLOR (test code = COLU) YELLOW YELLOW UA APPEARANCE (test code = APPU) CLEAR CLEAR UA GLUCOSE DIPSTICK (test code = DGLUU) 1000 (3+) mg/dL NEGATIVE A UA BILIRUBIN DIPSTICK (test code = BILU) NEGATIVE mg/dL NEGATIVE UA KETONE DIPSTICK (test code = KETU) TRACE mg/dL NEGATIVE A UA SPECIFIC GRAVITY (test code = SGU) 1.038 1.001-1.035 UA BLOOD DIPSTICK (test code = JASMINE) 0.06 mg/dL (1+) mg/dL NEGATIVE A UA PH DIPSTICK (test code = ANISA) 6.5 5.0-8.0 UA PROTEIN DIPSTICK (test code = PROU) 20 (Trace) mg/dL NEGATIVE A UA UROBILINIOGEN DIPSTICK (test code = URO) Normal mg/dL NEGATIVE UA NITRITE DIPSTICK (test code = YOUSIF) NEGATIVE NEGATIVE UA LEUKOCYTE ESTERASE W REFLEX (test code = LEUUR) 75 [place]/uL (1+) [place]/uL NEGATIVE A UA WBC (test code = WBCU) per HPF 0-5 UA RBC (test code = RBCU) per HPF 0-5 UA EPITHELIAL CELLS (test code = EPIU) per HPF Few UA BACTERIA (test code = BACU) per HPF NONE Urine Source? Clean CatchUR HCG [id number] 20:52:00* Test Item Value Reference Range Interpretation Comments UR HCG QUAL (test code = HCGQLU) Urine Source? Clean Catch- US ABDOMEN [id number] 20:49:00 Name: ROXANA HUERTA [facility] : 1985 Age/S: 33 / F Kofi Keen Unit #: [id number] Loc: [place], [place] [address] Phys: Ronald Hobson MD Acct: [id number] Di s Date: Status: REG ER PHONE #: Exam Date: 02/13/20192036 FAX #: [phone] Reason: RUQ and epigastric ttp EXAMS: CPT CODE: [id number] US ABDOMEN LTD [id number] ULTRASOUND: - US ABDOMEN LTD History: RUQ and epigastric ttp Comparison: CT performed 3 weeks prior. Findings: The limitedly visualized portion of the liver has relatively increased echogenicity. No intrahepatic ductal dilation is seen. Gallbladder appears surgical ly absent. The common bile duct measures 6 mm The pancreas i s incompletely visualized. The right kidney measuring 12.6 cm ther e is no hydronephrosis. Visualized portions of the aorta and IVC a re normal. Impression: The gallbladder is surg ically absent. The appearance the liver is nonspecific but may reflect s teatosis versus underlying parenchymal disease Elect ronically Signed by Gely Eugene M.D. on 02/2019 at 2048 Reported and signed by: Gabriela Eugene M.D. CC: Rosy Hobson MD Technologist: Arjun Ramos Trnscb Date/Time: 02/13/2019 (2048) [email or web address] Orig Print D/T: S: 02/13/2019 (2051) Probe: PAGE 1 Signed Report CBC W/AUTO [id number] 20:36:00* Test Item Value Reference Range Interpretation Comments WHITE BLOOD CELL (test code = WBC) 11.1 K/mm3 4.5-12.5 N RED BLOOD CELL (test code = RBC) 4.70 mill/mm3 3.7-5.2 N HEMOGLOBIN (test code = HGB) 11.0 gram/dL 11.5-15.5 L HEMATOCRIT (test code = HCT) 36.8 % 36.0-46.0 N MEAN CELL VOLUME (test code = MCV) 78.3 fL 80-98 L MEAN CELL HGB (test code = MCH) 23.4 picogram 27.0-33.0 L MEAN CELL HGB CONCETRATION (test code = MCHC) 29.9 gram/dL 33.0-36. 0 L RED CELL DISTRIBUTION WIDTH (test code = RDW) 16.5 % 11.6-16. 2 H RED CELL DISTRIBUTION WIDTH SD (test code = RDW-SD) 46.9 fL 37 .0-51.0 N PLATELET COUNT (test code = PLT) 346 K/mm3 150-450 N MEAN PLATELET VOLUME (test code = MPV) 11.1 fL 6.7-11.0 H NEUTROPHIL % (test code = NT%) 62.4 % 39.0-69.0 N IMMATURE GRANULOCYTE % (test code = IG%) 0.4 % 0.0-5.0 N LYMPHOCYTE % (test code = LY%) 28.5 % 25.0-55.0 N MONOCYTE % (test code = MO%) 6.2 % 0.0-10.0 N EOSINOPHIL % (test code = EO%) 2.0 % 0.0-5.0 N BASOPHIL % (test code = BA%) 0.5 % 0.0-1.0 N NUCLEATED RBC % (test code = NRBC%) 0.0 % 0-0 N NEUTROPHIL # (test code = NT#) 6.93 K/mm3 1.8-7.7 N IMMATURE GRANULOCYTE # (test code = IG#) 0.04 x10 3/uL 0-0.03 H LYMPHOCYTE # (test code = LY#) 3.17 K/mm3 1.0-5.0 N MONOCYTE # (test code = MO#) 0.69 K/mm3 0-0.8 N EOSINOPHIL # (test code = EO#) 0.22 K/mm3 0.0-0.5 N BASOPHIL # (test code = BA#) 0.06 K/mm3 0.0-0.2 N NUCLEATED RBC # (test code = NRBC#) 0.00 K/mm3 0.0-0.1 N MANUAL DIFF REQUIRED (test code = MDIFF) NO, ONLY SCAN NEEDED DIFFERENTIAL [id number] 20:36:00* Test Item Value Reference Range Interpretation Comments STAIN ACCEPTABILITY (test code = STN ACCEPTABLE) MORPHOLOGY COMMENT (test code = MOC) PLATELET ESTIMATE (test code = PLTEST) PLATELET MORPHOLOGY (test code = PLTMORPH) CBC W/AUTO [id number] 20:33:00* Test Item Value Reference Range Interpretation Comments WHITE BLOOD CELL (test code = WBC) 11.1 K/mm3 4.5-12.5 N RED BLOOD CELL (test code = RBC) 4.70 mill/mm3 3.7-5.2 N HEMOGLOBIN (test code = HGB) 11.0 gram/dL 11.5-15.5 L HEMATOCRIT (test code = HCT) 36.8 % 36.0-46.0 N MEAN CELL VOLUME (test code = MCV) 78.3 fL 80-98 L MEAN CELL HGB (test code = MCH) 23.4 picogram 27.0-33.0 L MEAN CELL HGB CONCETRATION (test code = MCHC) 29.9 gram/dL 33.0-36. 0 L RED CELL DISTRIBUTION WIDTH (test code = RDW) 16.5 % 11.6-16. 2 H RED CELL DISTRIBUTION WIDTH SD (test code = RDW-SD) 46.9 fL 37 .0-51.0 N PLATELET COUNT (test code = PLT) 346 K/mm3 150-450 N MEAN PLATELET VOLUME (test code = MPV) 11.1 fL 6.7-11.0 H NEUTROPHIL % (test code = NT%) 62.4 % 39.0-69.0 N IMMATURE GRANULOCYTE % (test code = IG%) 0.4 % 0.0-5.0 N LYMPHOCYTE % (test code = LY%) 28.5 % 25.0-55.0 N MONOCYTE % (test code = MO%) 6.2 % 0.0-10.0 N EOSINOPHIL % (test code = EO%) 2.0 % 0.0-5.0 N BASOPHIL % (test code = BA%) 0.5 % 0.0-1.0 N NUCLEATED RBC % (test code = NRBC%) 0.0 % 0-0 N NEUTROPHIL # (test code = NT#) 6.93 K/mm3 1.8-7.7 N IMMATURE GRANULOCYTE # (test code = IG#) 0.04 x10 3/uL 0-0.03 H LYMPHOCYTE # (test code = LY#) 3.17 K/mm3 1.0-5.0 N MONOCYTE # (test code = MO#) 0.69 K/mm3 0-0.8 N EOSINOPHIL # (test code = EO#) 0.22 K/mm3 0.0-0.5 N BASOPHIL # (test code = BA#) 0.06 K/mm3 0.0-0.2 N NUCLEATED RBC # (test code = NRBC#) 0.00 K/mm3 0.0-0.1 N MANUAL DIFF REQUIRED (test code = MDIFF) NO, ONLY SCAN NEEDED DIFFERENTIAL [id number] 20:33:00* Test Item Value Reference Range Interpretation Comments STAIN ACCEPTABILITY (test code = STN ACCEPTABLE) CABOT RINGS (test code = CAB) MORPHOLOGY COMMENT (test code = MOC) PLATELET ESTIMATE (test code = PLTEST) PLATELET MORPHOLOGY (test code = PLTMORPH) CBC W/AUTO [id number] 20:33:00* Test Item Value Reference Range Interpretation Comments WHITE BLOOD CELL (test code = WBC) 11.1 K/mm3 4.5-12.5 N RED BLOOD CELL (test code = RBC) 4.70 mill/mm3 3.7-5.2 N HEMOGLOBIN (test code = HGB) 11.0 gram/dL 11.5-15.5 L HEMATOCRIT (test code = HCT) 36.8 % 36.0-46.0 N MEAN CELL VOLUME (test code = MCV) 78.3 fL 80-98 L MEAN CELL HGB (test code = MCH) 23.4 picogram 27.0-33.0 L MEAN CELL HGB CONCETRATION (test code = MCHC) 29.9 gram/dL 33.0-36. 0 L RED CELL DISTRIBUTION WIDTH (test code = RDW) 16.5 % 11.6-16. 2 H RED CELL DISTRIBUTION WIDTH SD (test code = RDW-SD) 46.9 fL 37 .0-51.0 N PLATELET COUNT (test code = PLT) 346 K/mm3 150-450 N MEAN PLATELET VOLUME (test code = MPV) 11.1 fL 6.7-11.0 H NEUTROPHIL % (test code = NT%) 62.4 % 39.0-69.0 N IMMATURE GRANULOCYTE % (test code = IG%) 0.4 % 0.0-5.0 N LYMPHOCYTE % (test code = LY%) 28.5 % 25.0-55.0 N MONOCYTE % (test code = MO%) 6.2 % 0.0-10.0 N EOSINOPHIL % (test code = EO%) 2.0 % 0.0-5.0 N BASOPHIL % (test code = BA%) 0.5 % 0.0-1.0 N NUCLEATED RBC % (test code = NRBC%) 0.0 % 0-0 N NEUTROPHIL # (test code = NT#) 6.93 K/mm3 1.8-7.7 N IMMATURE GRANULOCYTE # (test code = IG#) 0.04 x10 3/uL 0-0.03 H LYMPHOCYTE # (test code = LY#) 3.17 K/mm3 1.0-5.0 N MONOCYTE # (test code = MO#) 0.69 K/mm3 0-0.8 N EOSINOPHIL # (test code = EO#) 0.22 K/mm3 0.0-0.5 N BASOPHIL # (test code = BA#) 0.06 K/mm3 0.0-0.2 N NUCLEATED RBC # (test code = NRBC#) 0.00 K/mm3 0.0-0.1 N MANUAL DIFF REQUIRED (test code = MDIFF) NO, ONLY SCAN NEEDED DIFFERENTIAL [id number] 20:33:00* Test Item Value Reference Range Interpretation Comments STAIN ACCEPTABILITY (test code = STN ACCEPTABLE) MORPHOLOGY COMMENT (test code = MOC) PLATELET ESTIMATE (test code = PLTEST) PLATELET MORPHOLOGY (test code = PLTMORPH) CBC W/AUTO [id number] 20:33:00* Test Item Value Reference Range Interpretation Comments WHITE BLOOD CELL (test code = WBC) 11.1 K/mm3 4.5-12.5 N RED BLOOD CELL (test code = RBC) 4.70 mill/mm3 3.7-5.2 N HEMOGLOBIN (test code = HGB) 11.0 gram/dL 11.5-15.5 L HEMATOCRIT (test code = HCT) 36.8 % 36.0-46.0 N MEAN CELL VOLUME (test code = MCV) 78.3 fL 80-98 L MEAN CELL HGB (test code = MCH) 23.4 picogram 27.0-33.0 L MEAN CELL HGB CONCETRATION (test code = MCHC) 29.9 gram/dL 33.0-36. 0 L RED CELL DISTRIBUTION WIDTH (test code = RDW) 16.5 % 11.6-16. 2 H RED CELL DISTRIBUTION WIDTH SD (test code = RDW-SD) 46.9 fL 37 .0-51.0 N PLATELET COUNT (test code = PLT) 346 K/mm3 150-450 N MEAN PLATELET VOLUME (test code = MPV) 11.1 fL 6.7-11.0 H NEUTROPHIL % (test code = NT%) 62.4 % 39.0-69.0 N IMMATURE GRANULOCYTE % (test code = IG%) 0.4 % 0.0-5.0 N LYMPHOCYTE % (test code = LY%) 28.5 % 25.0-55.0 N MONOCYTE % (test code = MO%) 6.2 % 0.0-10.0 N EOSINOPHIL % (test code = EO%) 2.0 % 0.0-5.0 N BASOPHIL % (test code = BA%) 0.5 % 0.0-1.0 N NUCLEATED RBC % (test code = NRBC%) 0.0 % 0-0 N NEUTROPHIL # (test code = NT#) 6.93 K/mm3 1.8-7.7 N IMMATURE GRANULOCYTE # (test code = IG#) 0.04 x10 3/uL 0-0.03 H LYMPHOCYTE # (test code = LY#) 3.17 K/mm3 1.0-5.0 N MONOCYTE # (test code = MO#) 0.69 K/mm3 0-0.8 N EOSINOPHIL # (test code = EO#) 0.22 K/mm3 0.0-0.5 N BASOPHIL # (test code = BA#) 0.06 K/mm3 0.0-0.2 N NUCLEATED RBC # (test code = NRBC#) 0.00 K/mm3 0.0-0.1 N MANUAL DIFF REQUIRED (test code = MDIFF) NO, ONLY SCAN NEEDED DIFFERENTIAL [id number] 20:33:00* Test Item Value Reference Range Interpretation Comments STAIN ACCEPTABILITY (test code = STN ACCEPTABLE) CABOT RINGS (test code = CAB) MORPHOLOGY COMMENT (test code = MOC) PLATELET ESTIMATE (test code = PLTEST) PLATELET MORPHOLOGY (test code = PLTMORPH) CBC W/AUTO [id number] 20:32:00* Test Item Value Reference Range Interpretation Comments WHITE BLOOD CELL (test code = WBC) K/mm3 4.5-12.5 RED BLOOD CELL (test code = RBC) mill/mm3 3.7-5.2 HEMOGLOBIN (test code = HGB) gram/dL 11.5-15.5 HEMATOCRIT (test code = HCT) 36.8 % 36.0-46.0 N MEAN CELL VOLUME (test code = MCV) fL 80-98 MEAN CELL HGB (test code = MCH) picogram 27.0-33.0 MEAN CELL HGB CONCETRATION (test code = MCHC) gram/dL 33.0-36. 0 RED CELL DISTRIBUTION WIDTH (test code = RDW) % 11.6-16. 2 RED CELL DISTRIBUTION WIDTH SD (test code = RDW-SD) fL 37 .0-51.0 PLATELET COUNT (test code = PLT) K/mm3 150-450 MEAN PLATELET VOLUME (test code = MPV) fL 6.7-11.0 NEUTROPHIL % (test code = NT%) % 39.0-69.0 IMMATURE GRANULOCYTE % (test code = IG%) % 0.0-5.0 LYMPHOCYTE % (test code = LY%) % 25.0-55.0 MONOCYTE % (test code = MO%) % 0.0-10.0 EOSINOPHIL % (test code = EO%) % 0.0-5.0 BASOPHIL % (test code = BA%) % 0.0-1.0 NEUTROPHIL # (test code = NT#) K/mm3 1.8-7.7 LYMPHOCYTE # (test code = LY#) K/mm3 1.0-5.0 MONOCYTE # (test code = MO#) K/mm3 0-0.8 EOSINOPHIL # (test code = EO#) K/mm3 0.0-0.5 BASOPHIL # (test code = BA#) K/mm3 0.0-0.2 COMPREHENSIVE METABOLIC [id number] 02:46:00* Test Item Value Reference Range Interpretation Comments SODIUM (test code = NA) 142 mmol/L 136-145 N POTASSIUM (test code = K) 3.5 mmol/L 3.5-5.1 N CHLORIDE (test code = CL) 110.0 mmol/L 98-107 H CARBON DIOXIDE (test code = CO2) 24.0 mmol/L 21-32 N ANION GAP (test code = GAP) 11.5 10-20 N GLUCOSE (test code = GLU) 256 mg/dL 74-106 H BLOOD UREA NITROGEN (test code = BUN) 11 mg/dL 7-18 N GLOMERULAR FILTRATION RATE (test code = GFR) > 60 mL/min >=60 Estimated GFR by using Modified MDRD formula.Chronic kidney disease is defined as either kidney damageor GFR <60 mL/min/1.73 m2 for >3 months. CREATININE (test code = CREAT) 0.70 mg/dL 0.55-1.02 N Note change in reference range due to change in reagent. BUN/CREATININE RATIO (test code = BUN/CREA) 15.7 10-20 N TOTAL PROTEIN (test code = PROT) 6.6 gram/dL 6.4-8.2 N ALBUMIN (test code = ALB) 3.2 g/dL 3.4-5.0 L GLOBULIN (test code = GLOB) 3.4 gram/dL 2.7-4.2 N ALBUMIN/GLOBULIN RATIO (test code = A/G) 0.9 0.75-1.50 N CALCIUM (test code = CA) 7.8 mg/dL 8.5-10.1 L BILIRUBIN TOTAL (test code = BILT) 0.20 mg/dL 0.0-1.0 N SGOT/AST (test code = AST) 6 IUnit/L 15-37 L SGPT/ALT (test code = ALT) 17 IUnit/L 12-78 N ALKALINE PHOSPHATASE TOTAL (test code = ALKP) 83 IUnit/L 45-117 N Note change in reference range due to change in reagent. COMPREHENSIVE METABOLIC [id number] 02:39:00* Test Item Value Reference Range Interpretation Comments SODIUM (test code = NA) 142 mmol/L 136-145 N POTASSIUM (test code = K) 3.5 mmol/L 3.5-5.1 N CHLORIDE (test code = CL) 110.0 mmol/L 98-107 H CARBON DIOXIDE (test code = CO2) mmol/L 21-32 ANION GAP (test code = GAP) 10-20 GLUCOSE (test code = GLU) mg/dL 74-106 BLOOD UREA NITROGEN (test code = BUN) mg/dL 7-18 GLOMERULAR FILTRATION RATE (test code = GFR) mL/min >=60 CREATININE (test code = CREAT) mg/dL 0.55-1.02 BUN/CREATININE RATIO (test code = BUN/CREA) 10-20 TOTAL PROTEIN (test code = PROT) gram/dL 6.4-8.2 ALBUMIN (test code = ALB) g/dL 3.4-5.0 GLOBULIN (test code = GLOB) gram/dL 2.7-4.2 ALBUMIN/GLOBULIN RATIO (test code = A/G) 0.75-1.50 CALCIUM (test code = CA) mg/dL 8.5-10.1 BILIRUBIN TOTAL (test code = BILT) mg/dL 0.0-1.0 SGOT/AST (test code = AST) IUnit/L 15-37 SGPT/ALT (test code = ALT) IUnit/L 12-78 ALKALINE PHOSPHATASE TOTAL (test code = ALKP) IUnit/L 45-117 CBC W/AUTO [id number] 02:01:00* Test Item Value Reference Range Interpretation Comments WHITE BLOOD CELL (test code = WBC) 8.9 K/mm3 4.5-12.5 N RED BLOOD CELL (test code = RBC) 4.47 mill/mm3 3.7-5.2 N HEMOGLOBIN (test code = HGB) 10.5 gram/dL 11.5-15.5 L HEMATOCRIT (test code = HCT) 34.9 % 36.0-46.0 L MEAN CELL VOLUME (test code = MCV) 78.1 fL 80-98 L MEAN CELL HGB (test code = MCH) 23.5 picogram 27.0-33.0 L MEAN CELL HGB CONCETRATION (test code = MCHC) 30.1 gram/dL 33.0-36. 0 L RED CELL DISTRIBUTION WIDTH (test code = RDW) 16.8 % 11.6-16. 2 H RED CELL DISTRIBUTION WIDTH SD (test code = RDW-SD) 47.2 fL 37 .0-51.0 N PLATELET COUNT (test code = PLT) 316 K/mm3 150-450 N MEAN PLATELET VOLUME (test code = MPV) 11.1 fL 6.7-11.0 H NEUTROPHIL % (test code = NT%) 56.9 % 39.0-69.0 N IMMATURE GRANULOCYTE % (test code = IG%) 0.4 % 0.0-5.0 N LYMPHOCYTE % (test code = LY%) 33.5 % 25.0-55.0 N MONOCYTE % (test code = MO%) 6.6 % 0.0-10.0 N EOSINOPHIL % (test code = EO%) 2.2 % 0.0-5.0 N BASOPHIL % (test code = BA%) 0.4 % 0.0-1.0 N NUCLEATED RBC % (test code = NRBC%) 0.0 % 0-0 N NEUTROPHIL # (test code = NT#) 5.04 K/mm3 1.8-7.7 N IMMATURE GRANULOCYTE # (test code = IG#) 0.04 x10 3/uL 0-0.03 H LYMPHOCYTE # (test code = LY#) 2.98 K/mm3 1.0-5.0 N MONOCYTE # (test code = MO#) 0.59 K/mm3 0-0.8 N EOSINOPHIL # (test code = EO#) 0.20 K/mm3 0.0-0.5 N BASOPHIL # (test code = BA#) 0.04 K/mm3 0.0-0.2 N NUCLEATED RBC # (test code = NRBC#) 0.00 K/mm3 0.0-0.1 N MANUAL DIFF REQUIRED (test code = MDIFF) NO - CT ABD PELVIS [id number] 11:48:00 Name: ROXANA HUERTA [facility] : 1985 Age/S: 33 / F [address] [place] [address] Unit #: [id number] Loc: [place] [address] Phys: Jaime Matos MD Acct: [id number] Dis Date: Status: REG ER PHONE #: [phone] Exam Date: 01/28/2019 1132 FAX #: [phone] Reason: abd pain, diffuse cramping EXAMS: CPT CODE: [id number] CT ABD PELVIS W/CONT [id number] PROCEDURE: CT ABDOMEN AND PELVIS WITH CONTRAST INDICATION: Abdominal pain, diffuse, cramping. 33-year-old female with complaint of symptoms for one week. COMPARISON: June 2017 TECHNIQUE: Helical imaging was performed diaphragm through the symphysis with multiplanar reconstructions. IV CONTRAST: 100 mL Isovue- 300. GI CONTRAST: [address] imaging performed at this location utilizes radiation dose optimization techniques which include one or more of the following: -Automated exposure control -Adjustment of the mA and/or kV according to patient size -Use of iterative reconstruction technique CT Radiation Dose DLP 669.13 mGy-cm FINDINGS: LOWER CHEST: The lung bases are clear. LIVER: The liver is diffusely diminished in attenuation with sparing adjacent to the karthik hepatis compatible with steatosis. No focal liver lesion. No biliary dilatation. GALLBLADDER: Surgically absent. SPLEEN: Normal. PANCREAS: Normal. ADRENALS: Normal. KIDNEYS: Normal. BOWEL: The stomach, small bowel and colon are unremarkable. APPENDIX: Normal. PERITONEUM: No free intraperitoneal fluid or air. RETROPERITONEUM: No adenopathy. The aorta is normal. PELVIS: No pelvic mass. The urinary bladder is normal. PAGE 1 Signed Re port (CONTINUED) Name: ROXANA HUERTA [facility] : 1985 Age/S: 33 / F [address] [facility] Unit #: [id number] Loc: [place], [place] [address] Phys: Jaime Matos MD Acct: [id number] Dis Date: Status: REG ER PHONE #: [phone] Exam Date: 01/28/2019 1132 FAX #: [phone] Reason: abd pain, diffuse cramping EXAMS: CPT CODE: [id number] CT ABD PELVIS W/CONT 89646 <Continued> MUSCULOSKELETAL: The skeleton is intact. IMPRESSION: 1. No acute abnormality demonstrated. 2. Hepatic steatosis. SL: [id number] at 1148 Reported and signed by: Mathew Huffman M.D. CC: aJime Matos MD Technologist:RT Lynda(R)(CT) CTDI: DLP: Trnscb Date/Time: 01/28/2019 (1148) [email or web address] Orig Print D/T: S: 01/28/2019 (1151) PAGE 2 Signed Report COMPREHENSIVE METABOLIC PANEL 2019-01-28 10:26:00* Test Item Value Reference Range Interpretation Comments SODIUM (test code = NA) 137 mEq/L 134-147 N POTASSIUM (test code = K) 3.5 mEq/L 3.4-5.0 N CHLORIDE (test code = CL) 107 mEq/L 100-108 N CARBON DIOXIDE (test code = CO2) 23 mEq/L 21-33 N ANION GAP (test code = GAP) 11 0-20 N GLUCOSE (test code = GLU) 189 mg/dL 70-110 H BLOOD UREA NITROGEN (test code = BUN) 13 mg/dL 7-18 N GLOMERULAR FILTRATION RATE (test code = GFR) 95.8 105-110 L Units of measure = ml/min/1.73 m2 CREATININE (test code = CREAT) 0.7 mg/dL 0.6-1.3 N TOTAL PROTEIN (test code = PROT) 7.3 g/dL 6.4-8.2 N ALBUMIN (test code = ALB) 3.40 g/dL 3.4-5.0 N CALCIUM (test code = CA) 8.4 mg/dL 8.0-10.5 N BILIRUBIN TOTAL (test code = BILT) 0.30 mg/dL 0.0-1.0 N SGOT/AST (test code = AST) 10 IUnit/L 15-37 L SGPT/ALT (test code = ALT) 17 IUnit/L 15-65 N ALKALINE PHOSPHATASE TOTAL (test code = ALKP) 84 IUnit/L 20-125 N [id number] 10:26:00* Test Item Value Reference Range Interpretation Comments LIPASE (test code = LIP) 220 IUnit/L 73-393 N HCG SERUM [id number] 10:26:00* Test Item Value Reference Range Interpretation Comments HCG SERUM QUAL (test code = HCGQL) SERUM NEGATIVE NEGATIVE [id number] 10:26:00* Test Item Value Reference Range Interpretation Comments TROPONIN-I (test code = TROPI) < 0.015 ng/mL 0.000-0.045 N Negative: <= 0.045 Positive: >= 0.046 Correlation with serial results, other cardiac markers andclinical findings is necessary to determine the clinicalsignificance of this result. Results using different methodologies should not be comparedto one another as quantitative results may vary by method. [id number] 10:24:00* Test Item Value Reference Range Interpretation Comments D-DIMER (test code = DDIMER) < 215 ng/mlFEU <=500 N THROMBOSIS AND/OR PULMONARY EMBOLISM AND THE CLINICAL CUT- OFF VALUE FOR EXCLUSION (500 ng/mL FEU) OF THESE CONDITIONSIS VALIDATED BY THE SPRAY FOAM INSTALLER OF THE METHOD. A NEGATIVE D-DIMER RESULT WHEN COMBINED WITH A CLINICALASSESSMENT OF LOW PRETEST PROBABILITY HAS BEEN SHOWN TO HAVEA HIGH NEGATIVE PREDICTIVE VALUE OF DVT OR PE. D-DIMER VALUES >500 ng/mL FEU ARE NOT DIAGNOSTIC FOR DVT, PEor DIC WITHOUT OTHER CONFIRMATORY TESTS AND APPROPRIATECLINICAL EUALUATIONS. CBC W/AUTO [id number] 10:23:00* Test Item Value Reference Range Interpretation Comments WHITE BLOOD CELL (test code = WBC) 10.02 x10 3/uL 4.5-11.0 N RED BLOOD CELL (test code = RBC) 4.85 x10 6/uL 3.54-5.02 N HEMOGLOBIN (test code = HGB) 11.4 g/dL 11.0-15.0 N HEMATOCRIT (test code = HCT) 36.7 % 33.0-45.0 N MEAN CELL VOLUME (test code = MCV) 75.7 fL 81.0-99.0 L MEAN CELL HGB (test code = MCH) 23.5 pg 27.0-33.0 L MEAN CELL HGB CONCETRATION (test code = MCHC) 31.1 g/dL 33.0-37. 0 L RED CELL DISTRIBUTION WIDTH CV (test code = RDW) 16.5 % 11.5- 14.5 H RED CELL DISTRIBUTION WIDTH SD (test code = RDW-SD) 45.0 fL 37 .0-54.0 N PLATELET COUNT (test code = PLT) 361 x10 3/uL 150-400 N MEAN PLATELET VOLUME (test code = MPV) 11.1 fL 7.0-9.0 H NEUTROPHIL % (test code = NT%) 65.8 % 56.0-77.0 N IMMATURE GRANULOCYTE % (test code = IG%) 0.4 % 0.0-2.0 N LYMPHOCYTE % (test code = LY%) 25.5 % 14.0-32.0 N MONOCYTE % (test code = MO%) 5.7 % 4.8-9.0 N EOSINOPHIL % (test code = EO%) 2.0 % 0.3-3.7 N BASOPHIL % (test code = BA%) 0.6 % 0.0-2.0 N NUCLEATED RBC % (test code = NRBC%) 0.0 % 0-0 N NEUTROPHIL # (test code = NT#) 6.59 x10 3/uL 2.0-7.6 N IMMATURE GRANULOCYTE # (test code = IG#) 0.04 x10 3/uL 0.00-0.03 H LYMPHOCYTE # (test code = LY#) 2.56 x10 3/uL 1.0-3.8 N MONOCYTE # (test code = MO#) 0.57 x10 3/uL 0.1-0.8 N EOSINOPHIL # (test code = EO#) 0.20 x10 3/uL 0.0-0.2 N BASOPHIL # (test code = BA#) 0.06 x10 3/uL 0.0-0.2 N NUCLEATED RBC # (test code = NRBC#) 0.00 x10 3/uL 0.0-0.1 N MANUAL DIFF REQUIRED (test code = MDIFF) NO COMPREHENSIVE METABOLIC [id number] 10:17:00* Test Item Value Reference Range Interpretation Comments SODIUM (test code = NA) mEq/L 134-147 POTASSIUM (test code = K) mEq/L 3.4-5.0 CHLORIDE (test code = CL) mEq/L 100-108 CARBON DIOXIDE (test code = CO2) mEq/L 21-33 ANION GAP (test code = GAP) 0-20 GLUCOSE (test code = GLU) mg/dL 70-110 BLOOD UREA NITROGEN (test code = BUN) mg/dL 7-18 GLOMERULAR FILTRATION RATE (test code = GFR) 105-110 CREATININE (test code = CREAT) mg/dL 0.6-1.3 TOTAL PROTEIN (test code = PROT) g/dL 6.4-8.2 ALBUMIN (test code = ALB) g/dL 3.4-5.0 CALCIUM (test code = CA) mg/dL 8.0-10.5 BILIRUBIN TOTAL (test code = BILT) mg/dL 0.0-1.0 SGOT/AST (test code = AST) IUnit/L 15-37 SGPT/ALT (test code = ALT) IUnit/L 15-65 ALKALINE PHOSPHATASE TOTAL (test code = ALKP) IUnit/L 20-125 [id number] 10:17:00* Test Item Value Reference Range Interpretation Comments LIPASE (test code = LIP) IUnit/L 73-393 HCG SERUM [id number] 10:17:00* Test Item Value Reference Range Interpretation Comments HCG SERUM QUAL (test code = HCGQL) SERUM NEGATIVE NEGATIVE [id number] 10:17:00* Test Item Value Reference Range Interpretation Comments TROPONIN-I (test code = TROPI) ng/mL 0.000-0.045 URINALYSIS [id number] 10:13:00* Test Item Value Reference Range Interpretation Comments UA COLOR (test code = COLU) YELLOW YEL/STRAW UA APPEARANCE (test code = APPU) CLEAR CLEAR UA GLUCOSE DIPSTICK (test code = DGLUU) NEGATIVE NEGATIVE UA BILIRUBIN DIPSTICK (test code = BILU) NEGATIVE NEGATIVE UA KETONE DIPSTICK (test code = KETU) NEGATIVE NEGATIVE UA SPECIFIC GRAVITY (test code = SGU) 1.010 1.005-1.030 N UA BLOOD DIPSTICK (test code = JASMINE) 3+ NEGATIVE A UA PH DIPSTICK (test code = ANISA) 6.0 5.0-7.0 N UA PROTEIN DIPSTICK (test code = PROU) NEGATIVE NEGATIVE UA UROBILINIOGEN DIPSTICK (test code = URO) 0.2 mg/dL 0.2-1.0 UA NITRITE DIPSTICK (test code = YOUSIF) NEGATIVE NEGATIVE UA LEUKOCYTE ESTERASE DIPSTICK (test code = LEUU) 1+ NEGA TIVE A UA WBC (test code = WBCU) 4-9 WBC/HPF 0-3 A UA RBC (test code = RBCU) 21-50 RBC/HPF 0-3 UA BACTERIA (test code = BACU) NONE SEEN /HPF NONE SEEN UA SQUAMOUS CELLS (test code = SQU) 0-5 /HPF NONE SEEN COMMENTS: Clean Catch- XR CHEST 1 [id number] 09:09:00 FAX: Jaime Matos MD [phone] [place]: [address]: REG Name: ROXANA KEBEDE [place] : [birth year] Age/S: 33/F [address] [facility] Unit #: [id number] Loc: [place] [address] Phys: Jaime Matos MD Acct: [id number] Dis Date: Status: REG ER PHONE #: [phone] Exam Date: 01/28/2019 09 FAX #: [phone] Reason: Abdominal Pain EXAMS: CPT CODE: [id number] XR CHEST 1 V 06962 CHEST, SINGLE VIEW H ISTORY: Abdominal pain Comparison made to 01/26/19 chest x-ray. FINDINGS: The lungs are clear. The heart size and pu lmonary vascularity are within normal limits. IMPRESSION: No active process. SL:01 at 0909 Reported and s igned by: Jordy Recinos M.D. CC: Jaime Matos MD Technologist: RT Kalia(Zachary) Trnscrd Date/Time/By: 01/28/2019 (908) : By: Sanjana Orig Print D/T: S: 01/28/2019 (911) PAGE 1 Signed Report - CT HEAD/BRAIN W/O [id number] 22:49:00 Name: ROXANA HUERTA [facility] : 1985 Age/S: 33 / F [address] [facility] Unit #: [id number] Loc: [place] [address] Phys: Rosy Hobson MD Acct: [id number] Dis Date: Status: REG ER PHONE #: [phone] Exam Date: 01/26/20192229 FAX #: [phone] Reason: dizziness EXAMS: CPT CODE: [id number] CT HEAD/BRAIN W/O CONT 87430 HISTORY: dizziness TECHNIQUE: Noncontrast 2.[address] of the head. Examination acquired within 24 hours of arrival. Automated exposure control for dose reduction. COMPARISON: None FINDINGS: No acute hemorrhage. No intracranial mass, mass effect, or midline shift. No CT evidence of acute infarct. Corea-white matter differentiation is preserved. No hydrocephalus. No extra-axial fluid collection. Visualized paranasal sinuses are clear. Mastoid air cells and middle ear cavities are clear. Orbital contents are unremarkable. Calvarium and skull base are intact. IMPRESSION: No acute intracranial abnormality. at 2249 Reported and signed by: Mark Chapa M.D. CC: Rosy Hobson MD Technologist:LETY MCDERMOTT CT CTDI: DLP: Trnscb Date/Time: 01/26/2019 (2248) [email or web address] Orig Print D/T: S: 01/26/2019 (6867) PAGE 1 Signed Report URINALYSIS [id number] 22:48:00* Test Item Value Reference Range Interpretation Comments UA COLOR (test code = COLU) Light-Yellow YELLOW UA APPEARANCE (test code = APPU) CLEAR CLEAR UA GLUCOSE DIPSTICK (test code = DGLUU) 1000 (3+) mg/dL NEGATIVE A UA BILIRUBIN DIPSTICK (test code = BILU) NEGATIVE mg/dL NEGATIVE UA KETONE DIPSTICK (test code = KETU) NEGATIVE mg/dL NEGATIVE UA SPECIFIC GRAVITY (test code = SGU) 1.027 1.001-1.035 UA BLOOD DIPSTICK (test code = JASMINE) 0.06 mg/dL (1+) mg/dL NEGATIVE A UA PH DIPSTICK (test code = ANISA) 5.5 5.0-8.0 UA PROTEIN DIPSTICK (test code = PROU) NEGATIVE mg/dL NEGATIVE UA UROBILINIOGEN DIPSTICK (test code = URO) Normal mg/dL NEGATIVE UA NITRITE DIPSTICK (test code = YOUSIF) NEGATIVE NEGATIVE UA LEUKOCYTE ESTERASE W REFLEX (test code = LEUUR) NEGATIVE [place]/uL NEGATIVE UA WBC (test code = WBCU) 0-5 per HPF 0-5 UA RBC (test code = RBCU) 0-2 #/HPF 0-5 UA EPITHELIAL CELLS (test code = EPIU) FEW per HPF FEW UA BACTERIA (test code = BACU) FEW #/HPF NONE A UA MUCUS (test code = MUCU) FEW #/LPF FEW Urine Source? Clean CatchDRUGS OF ABUSE SCREEN [id number] 22:48:00* Test Item Value Reference Range Interpretation Comments URN COCAINE (test code = COCAURN) NEGATIVE <300 ng/mL URN CANNABINOIDS (test code = CANNABURN) NEGATIVE <50 ng/mL URN AMPHETAMINE (test code = AMPHETURN) NEGATIVE <1000 ng/mL URN BARBITURATE (test code = BARBITURN) NEGATIVE <200 ng/mL URN BENZODIAZEPINE (test code = BENZOURN) NEGATIVE <200 ng/mL URN OPIATES (test code = OPIATURN) NEGATIVE <300 ng/mL URN PHENCYCLIDINE (PCP) (test code = PHENCURN) NEGATIVE <25 ng/ mL URN METHADONE (test code = METHAURN) NEGATIVE <300 ng/mL Urine Source? Clean Catch- XR CHEST 1 [id number] 22:31:00 FAX: Rosy Orantes [phone] [place]: St: REG Name: ROXANA KEBEDE [facility] : [birth year] Age/S: 33/F [address] [facility] Unit #: [id number] Loc: [place] [address] Phys: Rosy Hobson MD Acct: [id number] Dis Date: Status: REG ER PHONE #: [phone] Exam Date: 01/26/2019 2155 FAX #: [phone] Reason: WEAKNESS EXAMS: CPT CODE: [id number] XR CHEST 1 V 77710 REASON FOR EXAM: WEAKNESS Exam Order Date: 01/26/2019 8:54 PM Ordering MNewton: Ronald Hobson MD PROCEDURE: - XR CHEST 1 V MARILIN RISON: June 11, 2019. FINDINGS: The lungs are clear. Th ere is no pleural effusion or pneumothorax. Pulmonary vascularity is withi n normal limits. Cardiomediastinal silhouette is normal in size fo r technique. The mediastinal contours are within normal limits. Musculoskeletal structures are within normal limits. The visua lized upper abdomen is within normal limits. IMPRESSION: No acute cardiopulmonary process. at 2231 Reported and signed by: Mark Chapa M.D. CC: Rosy Hobson MD Technologist: Anurag Holcomb RT(R) Trnscrd Date/Time/By: 01/26/2019 (2230) : By: [email or web address] Orig Print D/T: S: 01/26/2019 (2233) PAGE 1 Signed Report URINALYSIS [id number] 22:22:00* Test Item Value Reference Range Interpretation Comments UA COLOR (test code = COLU) Light-Yellow YELLOW UA APPEARANCE (test code = APPU) CLEAR CLEAR UA GLUCOSE DIPSTICK (test code = DGLUU) 1000 (3+) mg/dL NEGATIVE A UA BILIRUBIN DIPSTICK (test code = BILU) NEGATIVE mg/dL NEGATIVE UA KETONE DIPSTICK (test code = KETU) NEGATIVE mg/dL NEGATIVE UA SPECIFIC GRAVITY (test code = SGU) 1.027 1.001-1.035 UA BLOOD DIPSTICK (test code = JASMINE) 0.06 mg/dL (1+) mg/dL NEGATIVE A UA PH DIPSTICK (test code = ANISA) 5.5 5.0-8.0 UA PROTEIN DIPSTICK (test code = PROU) NEGATIVE mg/dL NEGATIVE UA UROBILINIOGEN DIPSTICK (test code = URO) Normal mg/dL NEGATIVE UA NITRITE DIPSTICK (test code = YOUSIF) NEGATIVE NEGATIVE UA LEUKOCYTE ESTERASE W REFLEX (test code = LEUUR) NEGATIVE [place]/uL NEGATIVE UA WBC (test code = WBCU) 0-5 per HPF 0-5 UA RBC (test code = RBCU) 0-2 #/HPF 0-5 UA EPITHELIAL CELLS (test code = EPIU) FEW per HPF FEW UA BACTERIA (test code = BACU) FEW #/HPF NONE A UA MUCUS (test code = MUCU) FEW #/LPF FEW Urine Source? Clean CatchDRUGS OF ABUSE SCREEN [id number] 22:22:00* Test Item Value Reference Range Interpretation Comments URN COCAINE (test code = COCAURN) <300 ng/mL URN CANNABINOIDS (test code = CANNABURN) <50 ng/mL URN AMPHETAMINE (test code = AMPHETURN) <1000 ng/mL URN BARBITURATE (test code = BARBITURN) <200 ng/mL URN BENZODIAZEPINE (test code = BENZOURN) <200 ng/mL URN OPIATES (test code = OPIATURN) <300 ng/mL URN PHENCYCLIDINE (PCP) (test code = PHENCURN) <25 ng/ mL URN METHADONE (test code = METHAURN) <300 ng/mL Urine Source? Clean CatchURINALYSIS [id number] 22:20:00* Test Item Value Reference Range Interpretation Comments UA COLOR (test code = COLU) Light-Yellow YELLOW UA APPEARANCE (test code = APPU) CLEAR CLEAR UA GLUCOSE DIPSTICK (test code = DGLUU) 1000 (3+) mg/dL NEGATIVE A UA BILIRUBIN DIPSTICK (test code = BILU) NEGATIVE mg/dL NEGATIVE UA KETONE DIPSTICK (test code = KETU) NEGATIVE mg/dL NEGATIVE UA SPECIFIC GRAVITY (test code = SGU) 1.027 1.001-1.035 UA BLOOD DIPSTICK (test code = JASMINE) 0.06 mg/dL (1+) mg/dL NEGATIVE A UA PH DIPSTICK (test code = ANISA) 5.5 5.0-8.0 UA PROTEIN DIPSTICK (test code = PROU) NEGATIVE mg/dL NEGATIVE UA UROBILINIOGEN DIPSTICK (test code = URO) Normal mg/dL NEGATIVE UA NITRITE DIPSTICK (test code = YOUSIF) NEGATIVE NEGATIVE UA LEUKOCYTE ESTERASE W REFLEX (test code = LEUUR) NEGATIVE [place]/uL NEGATIVE UA WBC (test code = WBCU) per HPF 0-5 UA RBC (test code = RBCU) per HPF 0-5 UA EPITHELIAL CELLS (test code = EPIU) per HPF Few UA BACTERIA (test code = BACU) per HPF NONE Urine Source? Clean CatchDRUGS OF ABUSE SCREEN [id number] 22:20:00* Test Item Value Reference Range Interpretation Comments URN COCAINE (test code = COCAURN) <300 ng/mL URN CANNABINOIDS (test code = CANNABURN) <50 ng/mL URN AMPHETAMINE (test code = AMPHETURN) <1000 ng/mL URN BARBITURATE (test code = BARBITURN) <200 ng/mL URN BENZODIAZEPINE (test code = BENZOURN) <200 ng/mL URN OPIATES (test code = OPIATURN) <300 ng/mL URN PHENCYCLIDINE (PCP) (test code = PHENCURN) <25 ng/ mL URN METHADONE (test code = METHAURN) <300 ng/mL Urine Source? Clean CatchBASIC METABOLIC [id number] 22:06:00* Test Item Value Reference Range Interpretation Comments SODIUM (test code = NA) 138 mmol/L 136-145 N POTASSIUM (test code = K) 4.1 mmol/L 3.5-5.1 N CHLORIDE (test code = CL) 106.0 mmol/L 98-107 N CARBON DIOXIDE (test code = CO2) 24.0 mmol/L 21-32 N ANION GAP (test code = GAP) 12.1 10-20 N GLUCOSE (test code = GLU) 213 mg/dL 74-106 H BLOOD UREA NITROGEN (test code = BUN) 16 mg/dL 7-18 N GLOMERULAR FILTRATION RATE (test code = GFR) > 60 mL/min >=60 Estimated GFR by using Modified MDRD formula.Chronic kidney disease is defined as either kidney damageor GFR <60 mL/min/1.73 m2 for >3 months. CREATININE (test code = CREAT) 0.70 mg/dL 0.55-1.02 N Note change in reference range due to change in reagent. BUN/CREATININE RATIO (test code = BUN/CREA) 22.9 10-20 H CALCIUM (test code = CA) 8.3 mg/dL 8.5-10.1 L HEPATIC FUNCTION [id number] 22:06:00* Test Item Value Reference Range Interpretation Comments TOTAL PROTEIN (test code = PROT) 7.2 gram/dL 6.4-8.2 N ALBUMIN (test code = ALB) 3.4 g/dL 3.4-5.0 N GLOBULIN (test code = GLOB) 3.8 gram/dL 2.7-4.2 N ALBUMIN/GLOBULIN RATIO (test code = A/G) 0.9 0.75-1.50 N BILIRUBIN TOTAL (test code = BILT) 0.20 mg/dL 0.0-1.0 N BILIRUBIN DIRECT (test code = BILD) 0.08 mg/dL 0.0-0.20 N SGOT/AST (test code = AST) 10 IUnit/L 15-37 L SGPT/ALT (test code = ALT) 20 IUnit/L 12-78 N ALKALINE PHOSPHATASE TOTAL (test code = ALKP) 81 IUnit/L 45-117 N Note change in reference range due to change in reagent. [id number] 22:06:00* Test Item Value Reference Range Interpretation Comments LIPASE (test code = LIP) 159 U/L 73.0-393.0 N HCG SERUM [id number] 22:06:00* Test Item Value Reference Range Interpretation Comments HCG SERUM QUAL (test code = HCGQL) NEGATIVE NEGATIVE This HCGQL test is NOT applicable for MALE patients.Check with nurse about probable order error.If Tumor Marker Test needed, nurse should order test "HCGTU"(Test #550.39854) THYROID PROFILE [id number] 22:06:00* Test Item Value Reference Range Interpretation Comments T3 UPTAKE (test code = T3UP) 33.0 % 30.0-40.0 N T4 (THYROXINE) (test code = T4) 9.9 ug/dL 4.5-13.9 N T7 (FREE THYROXINE INDEX) (test code = T7) 3.26 FTI 1.3-5.1 N THYROID STIMULATING HORMONE (test code = TSH) 1.850 uIU/mL 0.36-3.7 4 N TSH REFERENCE RANGES: EUTHYROID: 0.35 - 4.3 mIU/mL HYPO : > 5.5 mIU/mL HYPER : < 0.35 mIU/mL [id number] 22:06:00* Test Item Value Reference Range Interpretation Comments TROPONIN-I (test code = TROPI) <0.015 ng/mL 0-0.045 N [id number] 22:06:00* Test Item Value Reference Range Interpretation Comments ALCOHOL (test code = ALC) < 3 mg/dL 0.0-3.0 N -- INTERPRETIVE DATA NOTE: POSITIVE SCREENING RESULTS SHOULD BE CONSIDERED PRESUMPTIVE.WHEN COLLECTED FOR MEDICAL PURPOSES ONLY. SPECIMEN WILL NOTBE COLLECTED BY CHAIN OF CUSTODY.IF A CONFIRMATION OF POSITIVE RESULTS IS DESIRED, ACONFIRMATION TEST MUST BE REQUESTED BY THE PHYSICIAN AT ANADDITIONAL CHARGE TO THE PATIENT. BASIC METABOLIC [id number] 21:54:00* Test Item Value Reference Range Interpretation Comments SODIUM (test code = NA) 138 mmol/L 136-145 N POTASSIUM (test code = K) 4.1 mmol/L 3.5-5.1 N CHLORIDE (test code = CL) 106.0 mmol/L 98-107 N CARBON DIOXIDE (test code = CO2) mmol/L 21-32 ANION GAP (test code = GAP) 10-20 GLUCOSE (test code = GLU) mg/dL 74-106 BLOOD UREA NITROGEN (test code = BUN) mg/dL 7-18 GLOMERULAR FILTRATION RATE (test code = GFR) mL/min >=60 CREATININE (test code = CREAT) mg/dL 0.55-1.02 BUN/CREATININE RATIO (test code = BUN/CREA) 10-20 CALCIUM (test code = CA) mg/dL 8.5-10.1 HEPATIC FUNCTION [id number] 21:54:00* Test Item Value Reference Range Interpretation Comments TOTAL PROTEIN (test code = PROT) gram/dL 6.4-8.2 ALBUMIN (test code = ALB) g/dL 3.4-5.0 GLOBULIN (test code = GLOB) gram/dL 2.7-4.2 ALBUMIN/GLOBULIN RATIO (test code = A/G) 0.75-1.50 BILIRUBIN TOTAL (test code = BILT) mg/dL 0.0-1.0 BILIRUBIN DIRECT (test code = BILD) mg/dL 0.0-0.20 SGOT/AST (test code = AST) IUnit/L 15-37 SGPT/ALT (test code = ALT) IUnit/L 12-78 ALKALINE PHOSPHATASE TOTAL (test code = ALKP) IUnit/L 45-117 [id number] 21:54:00* Test Item Value Reference Range Interpretation Comments LIPASE (test code = LIP) U/L 73.0-393.0 HCG SERUM [id number] 21:54:00* Test Item Value Reference Range Interpretation Comments HCG SERUM QUAL (test code = HCGQL) NEGATIVE NEGATIVE This HCGQL test is NOT applicable for MALE patients.Check with nurse about probable order error.If Tumor Marker Test needed, nurse should order test "HCGTU"(Test #550.88769) THYROID PROFILE [id number] 21:54:00* Test Item Value Reference Range Interpretation Comments T3 UPTAKE (test code = T3UP) % 30.0-40.0 T4 (THYROXINE) (test code = T4) ug/dL 4.5-13.9 T7 (FREE THYROXINE INDEX) (test code = T7) FTI 1.3-5.1 THYROID STIMULATING HORMONE (test code = TSH) uIU/mL 0.36-3.7 4 [id number] 21:54:00* Test Item Value Reference Range Interpretation Comments TROPONIN-I (test code = TROPI) ng/mL 0-0.045 [id number] 21:54:00* Test Item Value Reference Range Interpretation Comments ALCOHOL (test code = ALC) mg/dL 0-3 BASIC METABOLIC [id number] 21:52:00* Test Item Value Reference Range Interpretation Comments SODIUM (test code = NA) 138 mmol/L 136-145 N POTASSIUM (test code = K) 4.1 mmol/L 3.5-5.1 N CHLORIDE (test code = CL) 106.0 mmol/L 98-107 N CARBON DIOXIDE (test code = CO2) mmol/L 21-32 ANION GAP (test code = GAP) 10-20 GLUCOSE (test code = GLU) mg/dL 74-106 BLOOD UREA NITROGEN (test code = BUN) mg/dL 7-18 GLOMERULAR FILTRATION RATE (test code = GFR) mL/min >=60 CREATININE (test code = CREAT) mg/dL 0.55-1.02 BUN/CREATININE RATIO (test code = BUN/CREA) 10-20 CALCIUM (test code = CA) mg/dL 8.5-10.1 HEPATIC FUNCTION [id number] 21:52:00* Test Item Value Reference Range Interpretation Comments TOTAL PROTEIN (test code = PROT) gram/dL 6.4-8.2 ALBUMIN (test code = ALB) g/dL 3.4-5.0 GLOBULIN (test code = GLOB) gram/dL 2.7-4.2 ALBUMIN/GLOBULIN RATIO (test code = A/G) 0.75-1.50 BILIRUBIN TOTAL (test code = BILT) mg/dL 0.0-1.0 BILIRUBIN DIRECT (test code = BILD) mg/dL 0.0-0.20 SGOT/AST (test code = AST) IUnit/L 15-37 SGPT/ALT (test code = ALT) IUnit/L 12-78 ALKALINE PHOSPHATASE TOTAL (test code = ALKP) IUnit/L 45-117 [id number] 21:52:00* Test Item Value Reference Range Interpretation Comments LIPASE (test code = LIP) U/L 73.0-393.0 HCG SERUM [id number] 21:52:00* Test Item Value Reference Range Interpretation Comments HCG SERUM QUAL (test code = HCGQL) NEGATIVE THYROID PROFILE [id number] 21:52:00* Test Item Value Reference Range Interpretation Comments T3 UPTAKE (test code = T3UP) % 30.0-40.0 T4 (THYROXINE) (test code = T4) ug/dL 4.5-13.9 T7 (FREE THYROXINE INDEX) (test code = T7) FTI 1.3-5.1 THYROID STIMULATING HORMONE (test code = TSH) uIU/mL 0.36-3.7 4 [id number] 21:52:00* Test Item Value Reference Range Interpretation Comments TROPONIN-I (test code = TROPI) ng/mL 0-0.045 [id number] 21:52:00* Test Item Value Reference Range Interpretation Comments ALCOHOL (test code = ALC) mg/dL 0-3 CBC W/O [id number] 21:27:00* Test Item Value Reference Range Interpretation Comments WHITE BLOOD CELL (test code = WBC) 9.8 K/mm3 4.5-12.5 N RED BLOOD CELL (test code = RBC) 4.70 mill/mm3 3.7-5.2 N HEMOGLOBIN (test code = HGB) 11.0 gram/dL 11.5-15.5 L HEMATOCRIT (test code = HCT) 36.9 % 36.0-46.0 N MEAN CELL VOLUME (test code = MCV) 78.5 fL 80-98 L MEAN CELL HGB (test code = MCH) 23.4 picogram 27.0-33.0 L MEAN CELL HGB CONCETRATION (test code = MCHC) 29.8 gram/dL 33.0-36. 0 L RED CELL DISTRIBUTION WIDTH (test code = RDW) 16.6 % 11.6-16. 2 H PLATELET COUNT (test code = PLT) 347 K/mm3 150-450 N MEAN PLATELET VOLUME (test code = MPV) 11.1 fL 6.7-11.0 H [id number] 20:39:00* Test Item Value Reference Range Interpretation Comments GLUBED (test code = GLUBED) 224 mg/dL 74-106 H Performed by certified data coder operator at [facility] CenterNotified [facility]~ CT BRAIN [id number] 15:40:00 Bill [place] [id number] Patient Name: ROXANA HUERTA MR #: [id number] : 1985 Age/Sex: 32/F Req #: [id number] Adm Physician: Ordered by: RUFUS BROWN FAST [employer] SHIFT LEAD Report #: [id number] Location: ER Room/Bed: Procedure: [id number] CT/CT BRAIN WO Exam Ron e: 06/16/18 Exam Time: 1515 REPORT STATUS: Sign ed History:Headaches Comparison studies: None Technique: Axial i mages were obtained from the skull base to the vertex. Coronal and sagittal reconstructions obtained from the axial data. Dose modulation, iterative recon struction, and/or weight based adjustment of the mA/kV was utilized to reduce the radiation dose to as low as reasonably achievable. Findings: Sca lp/skull: No abnormalities. No fractures, blastic or lytic lesions. Extr a-axial spaces: No masses. No fluid collections. Brain sulci: Appropria te for age. Ventricles: Normal in size and configuration. No hydrocephalus. Parenchyma: No abnormal densities. No masses, hemorrhage, acute or property insurance claims examiner ayleen cortical vascular insults. Sellar/suprasellar region: No abnormalities Craniocervical junction: Patent foramen magnum. No Chiari one malformation. IMPRESSION: No abnormalities . Signed by: DR Ronen Bailey M.D. on 06/16/2018 3:42 PM Dictated By: [facility] Signed By: RONEN HEWITT MD on 06/16/18 1542 Transcribed By: LC on 06/16/18 1542 COPY TO: RUFUS BROWN NP
--- NOTE | 2020-01-23 21:40 | Emergency Department Note ---
History of Present Illnes History of Present Illness Chief Complaint: General Medicine Complaints History of Present Illness This is a 34 year old female hx of DM, c/o right posterior leg pain and bruises over night without known trauma. She concerned for DVT . 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 Any updates have been documented here. Past Medical History Recent Fever: No Clinical Suspicion of Infectio: No New/Unexplained Change in Ment: No Past Medical History: Diabetes, Asthma Other Medical History: HYPOGLYCEMIA OBESITY CAFFINE CAUSES PALPATATIONS Past Surgical History: Cholecysctectomy Other Surgery: ETOPIC PREG Social History Smoking Cessation: Never Smoker Alcohol Use: None Any Illegal Drug Use: No TB Exposure/Symptoms: No Physically hurt or threatened: No Family History Family history of heart diseas: No Other Last Tetanus: UNKNOWN Review of Systems Review of Systems Constitutional: no symptoms EENTM: no symptoms Cardiovascular: no symptoms Respiratory: no symptoms Gastrointestinal: no symptoms Genitourinary: no symptoms Musculoskeletal: muscle pain, other (posterior leg swelling) Neurological: no symptoms Psychological: no symptoms Endocrine: no symptoms Hematological/Lymphatic: no symptoms Review of other systems All other systems reviewed and negative. Physical Exam Related Data Allergies: Coded Allergies: hydrocodone (Verified Allergy, Intermediate, 12/15/19) butorphanol (Verified Allergy, Mild, 12/15/19) ciprofloxacin (Verified Allergy, Mild, 12/15/19) erythromycin base (Verified Allergy, Mild, 12/15/19) nitrous oxide (Verified Allergy, Mild, 12/15/19) promethazine (Verified Allergy, Mild, 07/05/18) aspirin (Verified Allergy, Unknown, 05/16/19) Triage Vital Signs Vital Signs Date Time Temp Pulse Resp B/P (MAP) Pulse Ox O2 Delivery O2 Flow Rate FiO2 01/23/20 21:26 97.7 73 18 105/67 100 Physical Exam CONSTITUTIONAL Constitutional: well-developed, well-nourished HENT HENT: normocephalic, atraumatic, oropharynx clear/moist, nose normal HENT L/R: left ext ear normal, right ext ear normal EYES Eyes: PERRL, conjunctivae normal NECK Neck: ROM normal PULMONARY Pulmonary: effort normal, breath sounds normal CARDIOVASCULAR Cardiovascular: regular rhythm, heart sounds normal, capillary refill normal, normal rate GASTROINTESTINAL Abdominal: soft, nontender, bowel sounds normal GENITOURINARY Genitourinary: exam deferred SKIN Skin: warm, dry, bruising (right leg bruise, 5 x 5 cm, posterior knee, lateral) MUSCULOSKELETAL Musculoskeletal: ROM normal NEUROLOGICAL Neurological: alert, oriented x 3, no gross motor or sensory deficits PSYCHOLOGICAL Psychological: mood/affect normal, judgement normal Results Imaging Imaging results reviewed: Yes Impressions no DVT seen Critical Care Time Subsequent provider I assumed direction of critical care for this patient from another provider of my specialty. Assessment & Plan Assessment & Plan Problems: (1) Traumatic ecchymosis of right lower leg (2) Leg pain, right (3) Leg pain, posterior Assessment & Plan 34 yo female DM, acute right leg concerning for DTV, will do Doppler. Her only risk is obesity. Reassessment Reassessment time: 10:40 Reassessment doing well, minimal pain Depart Disposition: HOME, SELF-CARE Last Vital Signs Date Time Temp Pulse Resp B/P (MAP) Pulse Ox O2 Delivery O2 Flow Rate FiO2 01/23/20 21:26 97.7 73 18 105/67 100 Home Meds Active Scripts Fluconazole (DIFLUCAN) 150 Mg Tablet, 150 MG PO DAILY for yeast infection for 3 Days, #3 TAB 0 Refills Prov:ZACKARY REILLY MD 01/05/20 Metformin Hcl (METFORMIN HCL) 500 Mg Tablet, 1000 MG PO BID, #60 TAB Prov:RISHABH GARCIA SURGICAL INSTRUMENTS INSPECTOR 06/16/18 Butalbital/Aspirin/Caffeine (FIORINAL 50-325-40 MG CAPSULE) 1 Each Capsule, 2 CAP PO Q4H PRN for HEADACHE, #20 CAP Prov:RISHABH GARCIA SURGICAL INSTRUMENTS INSPECTOR 06/16/18 ROMAINE LOZOYA MD January 23, 2020 21:40
--- NOTE | 2020-01-23 22:09 | NUR ---
US TECH HAS ARRIVED, PT CAME OUT OF ROOM ABOUT 10 MIN AGO AND SAID SHE HADCALLED HER DOCTOR FROM WITHIN HER ROOM AND WAS TOLD BY HER PCP TO GO HOME AND THAT HE WOULD ORDER AN US FOR PATIENT LATER IN WEEK IF HEMATOMA GOT WORSE? SHE STATES SHE DI DNOT WANT TO WAIT THE 2 HOURS ( SHE WAS TOLD BY MD) IT WOULD TAKE FOR THE US TECH TO ARRIVE, EXPLAINED TO PATIENT THAT WHAT DOCTOR MEANT WAS THAT IT MIGHT TAKE A TOTAL OF 2 HOURS FOR TECH TO ARRIVE, PROCEDURE TO BE DONE, AND RESULTS TO BE RESULTED, PT AGREED TO WAIT AND GET US DONE AND THEN ASKED DOCTOR IF SHE COULD GO HOME AND WE CAN CALL HER WITH RESULTS? MD TO REVIEW US WITH TECH AND GIVE PT PRELIMINARY FINDINGS SO THAT PT COULD LEAVE AFTER US COMPLETED
--- NOTE | 2020-01-23 22:43 | Diagnostic Imaging Report ---
EXAM: Right Lower Extremity Venous Duplex Ultrasound INDICATION: ^right leg swelling, look for DVT COMPARISON: None TECHNIQUE: Corea scale, color Doppler and spectral waveform analysis of the right lower extremity deep venous system was performed. FINDINGS: Common Femoral: Fully compressible with normal spontaneous waveforms. Proximal Greater Saphenous: Fully compressible. Femoral: Fully compressible with normal spontaneous waveforms. Normal response to augmentation. Proximal Deep Femoral: Normal spontaneous waveforms. Popliteal: Fully compressible with normal spontaneous waveforms. IMPRESSION: No evidence of deep venous thrombosis above the right calf. Signed by: Darrius Robles MD on 01/23/2020 10:39 PM
== END 2020-01-23 22:49 | disposition home or self-care (01) ==
LOC: FSED 21:13
DX: M79.661 Pain in right lower leg (principal); M79.89 Other specified soft tissue disorders; E11.65 Type 2 diabetes mellitus with hyperglycemia; J45.909 Unspecified asthma, uncomplicated; E66.9 Obesity, unspecified
CPT/HCPCS: 93971; 99283

== ENCOUNTER 2020-02-02 15:43 | Emergency (ER) | payer MEDICARE ==
[~2020-02-02] VITALS: Ht 160 cm; Wt 90.7 kg
--- OUTSIDE RECORDS SUMMARY | 2020-02-02 15:48 | XMS REPORT | Continuity of Care Document ---
Author Author [employer] Organization [employer] Address Unknown Phone Unavailable Care Team Providers Care Digital Developer Name Role Phone [employer] Unavailable Un available Problems Problem Status Onset Date Classification Date Reported Comments Source Chest pain, unspecified 07/30/2017 08/02/2017 [facility] Palpitations 07/30/2017 08/02/2017 [facility] ABD PAIN-11 WEEKS Act jesus 10/24/2016 [facility] Discharge Diagnosis: Acute UTI 09/21/2016 09/24/2016 [facility] Discharge Diagnosis: Abdominal pain affecting pregnanc y 09/21/2016 09/24/2016 [facility] ABDOMINAL PAIN Active 09/21/2016 [facility] Discharge Diagnosis: First trimester bleeding 09/16/2016 09/19/2016 [facility] Discharge Diagnosis: Threatened miscarriage 09/16/2016 09/19/2016 [facility] OB 6 WKS/VAG BLEEDING Active 09/16/2016 [facility] Discharge Diagnosis: Hyperglycemia 07/13/2016 07/16/2016 [facility] Discharge Diagnosis: Atypical chest pain 07/13/2016 07/16/2016 [facility] Discharge Diagnosis: Acute lower UTI (ur inary tract infection) 07/13/2016 07/16/2016 [facility] Discharge Diagnosis: Dizziness 07/13/2016 07/16/2016 [facility] DIZZINESS Active 07/12/2016 [facility] Discharge Diagnosis: Chest pain 07/07/2016 07/10/2016 [facility] Discharge Diagnosis: Near syncope 07/07/2016 07/10/2016 [facility] Discharge Diagnosis: Anemia 07/07/2016 07/10/2016 [facility] Discharge Diagnosis: Acute hypokalemia 07/07/2016 07/10/2016 [facility] DIZZY/CHEST PAIN Active 07/07/2016 [facility] Discharge Diagnosis: Shortness of breath 06/19/2016 06/22/2016 [facility] ASTMAH Active 06/19/2016 [facility] Discharge Diagnosis: Anxiety 06/18/2016 06/21/2016 [facility] Discharge Diagnosis: Asthma 06/18/2016 06/21/2016 [facility] SHORTNESS OF BREATH Active 06/18/2016 [facility] Discharge Diagnosis: Urinary tract infec tion, site not specified 05/25/2016 05/28/2016 [facility] Discharge Diagnosis: UTI (urinary tract infection) 04/20/2016 04/23/2016 [facility] Discharge Diagnosis: Heat exhaustion 04/20/2016 04/23/2016 [facility] Discharge Diagnosis: Dehydration 04/18/2016 04/22/2016 [facility] Discharge Diagnosis: Heat exhaustion, un specified, initial encounter 04/18/2016 04/22/2016 [facility] HEAT EXHAUSTION Active 04/18/2016 [facility] ABD PAIN Active 03/21/2016 [facility] INTRACTABLE ABDOMINAL PAIN, GBW THICKENI Active 12/02/2015 [facility] STOMACH PAIN Active 12/02/2015 [facility] Discharge Diagnosis: Lower abdominal pain, unspecified 11/10/2015 11/13/2015 [facility] EXPOSURE Active 10/16/2015 [facility] PELVIC PAIN Active 10/06/2015 [facility] SOB Active 0 09/21/2015 [facility] Discharge Diagnosis: Acute lower UTI 06/11/2015 06/14/2015 [facility] Discharge Diagnosis: Pharyngitis, acute 05/14/2015 05/17/2015 [facility] FEVER Active 05/14/2015 [facility] Discharge Diagnosis: Abdominal pain 04/21/2015 04/24/2015 [facility] Discharge Diagnosis: Bacterial vaginosis 04/19/2015 04/22/2015 [facility] Discharge Diagnosis: Urinary tract infection 04/19/2015 04/22/2015 [facility] Discharge Diagnosis: Pelvic pain in female 04/19/2015 04/22/2015 [facility] SYMPTOMS/ECTOPIC PREG Active 04/18/2015 [facility] SYNCOPE Active 03/16/2015 [facility] Discharge Diagnosis: Acute pelvic pain, female 03/09/2015 03/13/2015 [facility] Discharge Diagnosis: Acute pelvic inflammatory disease 03/09/2015 03/13/2015 [facility] Discharge Diagnosis: Dizziness 03/09/2015 03/13/2015 [facility] Discharge Diagnosis: Acute back pain 11/04/2014 11/06/2014 [facility] Discharge Diagnosis: Nausea 11/04/2014 11/06/2014 [facility] Discharge Diagnosis: UTI (lower urinary tract infection) 10/30/2014 11/01/2014 [facility] Discharge Diagnosis: Diarrhea 10/30/2014 11/01/2014 [facility] DIARRHEA Active 10/30/2014 [facility] Discharge Diagnosis: Near syncope 06/23/2014 06/26/2014 [facility] Discharge Diagnosis: Acute lower UTI 06/23/2014 06/26/2014 [facility] Discharge Diagnosis: Acute otitis externa 06/23/2014 06/26/2014 [facility] WEAKNESS/CHEST PAIN Active 06/23/2014 [facility] Discharge Diagnosis: Asthma exacerbation 06/10/2014 06/13/2014 [facility] Discharge Diagnosis: Upper respiratory infection 06/10/2014 06/13/2014 [facility] DIFFICULTY BREATHING Active 06/10/2014 [facility] ABD PAIN/ LOWER BACK PAIN Acti ve 07/08/2012 [facility] RIGHT SIDEPAIN Active 04/22/2012 [facility] ABD PAIN-LOWER Active 04/16/2012 [facility] OVARIAN CYST Active 04/15/2012 [facility] ADBOMINAL PAIN Active 10/15/2011 [facility] TROUBLE BREATHING Active 08/02/2011 [facility] Asthma (disorder) Active Problem 08/02/2017 [facility] Bronchitis (disorder) Resolved Problem 08/02/2017 [facility] Diabetes mellitus (disorder) R esolved Problem [facility] Diverticular disease (disorder) Resolved Problem [facility] Ectopic (disorder) R esolved Problem [facility] Depressive disorder (disorder) Resolved Problem [facility] Obesity Active Problem 12/10/2015 [facility] Asthma Active Problem 12/10/2015 [facility] Type 2 diabetes mellitus without complications Active Problem 12/10/2015 [facility] Fatty liver Active Problem 12/10/2015 [facility] GENERALIZED ABDOMINAL PAIN Act jesus [facility] Medications Medication Details Route Status Patient Instructions Ordering Provider Order Date Source ferrous sulfate Notes: Give wi th food. "Do Not Crush" No Longer Active 07/31/2017 [facility] Aspirin 325 MG Enteric Coated Tablet Notes: (Do Not Crush) Do not crush or chew. No Longer Active 07/31/2017 [facility] Metformin Notes: (Same as: Glu cophage) Take with meal No Longer Active 07/31/2017 [facility] Saline Flush 0.9% Notes: (Same as: BD Posiflush) Inactive 07/31/2017 [facility] Alprazolam 0.25 MG Oral Tablet [Xanax] Notes: With food or milk (Same as: Xanax) Inactive 07/30/2017 [facility] Insulin Lispro Notes: Roll in palms of hands gently; Do not shake `vigorously. (Same as: Humalog ) "Single Patient Use Only " WASTE: F/P - Black; E - Municipal Trash Bin Stable for 28 days at room temperature. Expires in days from Date Inactive 07/30/2017 [facility] Glucagon 1 mg, Route: IM, Drug form: PDR/INJ, PRN, Dosing Weight 90, kg, PRN Blood Glucose Results, Start date: 07/30/17 12:09:00 CASE SPECIALIST, Duration: 30 day, Stop date: 08/29/17 12:08:00 CASE SPECIALIST Inactive 07/30/2017 [facility] Dextrose 50% Syringe 25 gm, 50 mL, Route: IVP, Drug Form: INJ, Dosing Weight 90, kg, PRN, PRN Blood Glucose Results, Start date: 07/30/17 12:09:00 CASE SPECIALIST, Duration: 30 day, Stop date: 08/29/17 12:08:00 CASE SPECIALIST Inactive 07/30/2017 [facility] Saline Flush 0.9% Notes: (Same as: BD Posiflush) Inactive 07/30/2017 [facility] Morphine Notes: (Same as:MORPh ine Sulfate) Inactive 07/30/2017 [facility] Nitroglycerin Notes: (Same as: Nitroquick, Nitrostat) "Do Not Crush" Sublingual tablet Inactive 07/30/2017 [facility] Ondansetron Notes: (Same as: Stephen shearer) MEDICATION WASTE Product Size: 4 mg Product Wasted: _0__ mg Inactive 07/30/2017 [facility] BD Normal Saline Flush Notes: (Same as: BD Posiflush) Inactive 07/30/2017 [facility] Saline Flush 0.9% Notes: (Same as: BD Posiflush) Inactive 07/30/2017 [facility] Sodium Chloride 0.9% (Bolus) IV 1,000 mL, 1000 ml/hr, Infuse Over: 1 hr, Route: IV, 1,000, Drug form: INJ, ONCE, Priority: STAT, Dosing Weight 90 kg, Start date: 07/30/17 9:11:00 CASE SPECIALIST, Stop date: 07/30/17 9:11:00 CASE SPECIALIST Inactive 07/30/2017 [facility] Saline Flush 0.9% Notes: (Same as: BD Posiflush) Inactive 10/24/2016 [facility] Tylenol Notes: Do not exceed 4 gm/day. (Same as: Tylenol) Inactive 09/21/2016 [facility] Ceftriaxone Notes: (Same As: Zachary stephenson). Use with 100 mL NS and infuse over 30 min MEDICATION WASTE Product Size: 1000 mg Product Wasted: ___ mg Inactive 09/21/2016 [facility] Albuterol 0.833 MG/ML / Ipratropium Brom dimple 0.167 MG/ML Inhalant Solution Notes: (Same as: Duoneb) Inactive 09/21/2016 [facility] Sodium Chloride 0.154 MEQ/ML Injectable Solution 1,000 mL, 1,000 ml/hr, Infuse Over: 1 hr, Route: IV, 1,000, Drug form: INJ, ONCE, Priority: STAT, Dosing Weight 93.636 kg, Start date: 09/21/16 12:43:00 CASE SPECIALIST, Duration: 1 doses or times, Stop date: 09/21/16 12:43:00 CASE SPECIALIST Inactive 09/21/2016 [facility] Saline Flush 0.9% Notes: (Same as: BD Posiflush) Inactive 09/21/2016 [facility] Cephalexin 500 MG Oral Capsule [Keflex] 500 mg = 1 cap, PO, BID, X 7 day, # 14 cap, 0 Refill(s) Active 09/16/2016 [facility] Sodium Chloride 0.154 MEQ/ML Injectable Solution 1,000 mL, Infuse Over: 1 hr, Route: IV, ONCE, Priority: STAT, Dosing Weight 94.545 kg, Start date: 09/16/16 15:41:00 CASE SPECIALIST, Duration: 1 doses or times, Stop date: 09/16/16 15:41:00 CASE SPECIALIST Inactive 09/16/2016 [facility] Nitrofurantoin 100 MG Oral Capsule [Macrobid] 100 mg = 1 cap, PO, BID, X 3 day, # 6 cap, 0 Refill(s) Active 07/13/2016 [facility] Ativan 0.5 mg, Route: IVP, Brice g form: INJ, ONCE, Dosing Weight 97.727, kg, Priority: STAT, Start date: 07/13/16 1:39:00 CDT, Stop date: 07/13/16 1:39:00 CDT Inactive 07/13/2016 [facility] Sodium Chloride 0.154 MEQ/ML Injectable Solution 1,000 mL, 2,000 ml/hr, Infuse Over: 30 minutes, Route: IV, ONCE, Priority: STAT, Dosing Weight 97.727 kg, Start date: 07/13/16 1:39:00 CDT, Duration: 1 doses or times, Stop date: 07/13/16 1:39:00 CDT Inactive 07/13/2016 [facility] Saline Flush 0.9% Notes: (Same as: BD Posiflush) No Longer Active 07/13/2016 [facility] ferrous sulfate 325 mg oral enteric coated tablet 325 mg = 1 tab, PO, TID, Start with 1 tab daily x 3 days, advance as tolerate, use stool softners and laxatives as needed for constipation, # 90 tab, 3 Refill(s) Active 07/07/2016 [facility] Sodium Chloride 0.154 MEQ/ML Injectable Solution 500 mL, 500 ml/hr, Infuse Over: 1 hr, Route: IV, ONCE, Priority: STAT, Dosing Weight 97.727 kg, Start date: 07/07/16 17:55:00 CDT, Duration: 1 doses or times, Stop date: 07/07/16 17:55:00 CDT Inactive 07/07/2016 [facility] potassium chloride 40 mEq, Rou te: PO, Drug form: ERTAB, ONCE, Dosing Weight 97.727, kg, Priority: STAT, Start date: 07/07/16 17:47:00 CDT, Stop date: 07/07/16 17:47:00 CDT Inactive 07/07/2016 [facility] Saline Flush 0.9% Notes: (Same as: BD Posiflush) Inactive 07/07/2016 [facility] Albuterol 0.833 MG/ML / Ipratropium Brom dimple 0.167 MG/ML Inhalant Solution Notes: (Same as: Duoneb) Inactive 06/20/2016 [facility] Albuterol 0.833 MG/ML / Ipratropium Brom dimple 0.167 MG/ML Inhalant Solution [DuoNeb] Notes: (Same as: Duoneb) Inactive 06/19/2016 [facility] Albuterol 0.833 MG/ML / Ipratropium Brom dimple 0.167 MG/ML Inhalant Solution Notes: (Same as: Duoneb) Inactive 06/19/2016 [facility] Saline Flush 0.9% Notes: (Same as: BD Posiflush) No Longer Active 06/19/2016 [facility] Nitrofurantoin 100 MG Oral Capsule [Macrobid] 100 mg = 1 cap, PO, BID, X 10 day, # 20 cap, 0 Refill(s) Active 05/25/2016 [facility] Zofran 4 mg, Route: IVP, Drug form: INJ, ONCE, Dosing Weight 97.727, kg, Priority: STAT, Start date: 05/25/16 8:36:00 CDT, Stop date: 05/25/16 8:36:00 CDT Inactive 05/25/2016 [facility] Sodium Chloride 0.154 MEQ/ML Injectable Solution 1,000 mL, 1,000 ml/hr, Infuse Over: 1 hr, Route: IV, ONCE, Priority: STAT, Dosing Weight 97.727 kg, Start date: 05/25/16 8:07:00 CDT, Duration: 1 doses or times, Stop date: 05/25/16 8:07:00 CDT Inactive 05/25/2016 [facility] Cephalexin 500 MG Oral Capsule [Keflex] 500 mg = 1 cap, PO, BID, X 7 day, # 14 cap, 0 Refill(s) Active 04/20/2016 [facility] Sodium Chloride 0.154 MEQ/ML Injectable Solution 1,000 mL, 2,000 ml/hr, Infuse Over: 30 minutes, Route: IV, ONCE, Priority: STAT, Dosing Weight 100 kg, Start date: 04/20/16 3:26:00 CDT, Duration: 1 doses or times, Stop date: 04/20/16 3:26:00 CDT Inactive 04/20/2016 [facility] Zofran 4 mg, Route: IVP, Drug form: INJ, ONCE, Dosing Weight 100, kg, Priority: STAT, Start date: 04/20/16 2:43:00 CDT, Stop date: 04/20/16 2:43:00 CDT Inactive 04/20/2016 [facility] Sodium Chloride 0.154 MEQ/ML Injectable Solution 1,000 mL, 2,000 ml/hr, Infuse Over: 30 minutes, Route: IV, ONCE, Priority: STAT, Dosing Weight 100 kg, Start date: 04/20/16 2:26:00 CDT, Duration: 1 doses or times, Stop date: 04/20/16 2:26:00 CDT Inactive 04/20/2016 [facility] Ondansetron Notes: (Same as: Stephen shearer) MEDICATION WASTE Product Size: 4 mg Product Wasted: __0_ mg Inactive 04/19/2016 [facility] Saline Flush 0.9% Notes: (Same as: BD Posiflush) No Longer Active 04/19/2016 [facility] Sodium Chloride 0.154 MEQ/ML Injectable Solution 1,000 mL, 1000 ml/hr, Infuse Over: 1 hr, Route: IV, 1,000, Drug form: INJ, ONCE, Priority: STAT, Dosing Weight 97.727 kg, Start date: 04/18/16 19:46:00 CDT, Duration: 1 doses or times, Stop date: 04/18/16 19:46:00 CDT Inactive 04/19/2016 [facility] cephalexin 500 mg oral tablet 500 mg = 1 tab, PO, TID, X 14 day, # 42 tab, 0 Refill(s) Active 03/22/2016 [facility] Ondansetron 4 MG Disintegrating Tablet [Zofran] 4 mg = 1 tab, PO, Q8H, PRN Nausea and Vomiting, Dissolve tab under tongue, X 5 day, # 15 tab, 0 Refill(s) Active 03/22/2016 [facility] Tylenol Notes: Do not exceed 4 gm/day. (Same as: Tylenol) Inactive 03/21/2016 [facility] Rocephin Notes: (Same As: Amari ferris). Use with 100 mL NS and infuse over 30 min MEDICATION WASTE Product Size: 1000 mg Product Wasted: _0_ mg Inactive 03/21/2016 [facility] Saline Flush 0.9% Notes: (Same as: BD Posiflush) Inactive 03/21/2016 [facility] Sodium Chloride 0.154 MEQ/ML Injectable Solution 1,000 mL, 2,000 ml/hr, Infuse Over: 30 minutes, Route: IV, 1,000, Drug form: INJ, ONCE, Priority: STAT, Dosing Weight 94.091 kg, Start date: 03/21/16 15:17:00 CDT, Duration: 1 doses or times, Stop date: 03/21/16 15:17:00 CDT Inactive 03/21/2016 [facility] Protonix Notes: Tablet should not be chewed or crushed. (Same as: Protonix) Inactive 12/05/2015 [facility] Acetaminophen 300 MG / Codeine Phosphate 60 MG Oral Tablet [Tylenol with Codeine #4] 1 tab, PO, Q6H, PRN pain, X 7 day, # 28 tab, 0 Refill(s) Active 12/04/2015 [facility] Metformin hydrochloride 500 MG Oral Tablet Notes: (Same as: Glucophage) Take with meal No Longer Active 12/04/2015 [facility] Albuterol 0.833 MG/ML / Ipratropium Brom dimple 0.167 MG/ML Inhalant Solution Notes: (Same as: Duoneb) No Longer Active 12/04/2015 [facility] Zofran Notes: (Same as: Zofran ) MEDICATION WASTE Product Size: 4 mg Product Wasted: ___ mg No Longer Active 12/04/2015 [facility] Zosyn Notes: (Same as: Zosyn) Dosing based on Piperacillin component MEDICATION WASTE Product Size: 3375 mg Product Wasted: ___ mg No Longer Active 12/04/2015 [facility] Saline Flush 0.9% Notes: (Same as: BD Posiflush) No Longer Active 12/04/2015 [facility] Sodium Chloride 0.154 MEQ/ML Injectable Solution 1,000 mL, Rate: 125 ml/hr, Infuse over: 8 hr, Route: IV, Dosing Weight 94.091 kg, Total Volume: 1,000, Start date: 12/03/15 23:53:00, Duration: 30 day, Stop date: 01/02/16 23:52:00 No Longer Active 12/04/2015 [facility] Morphine Notes: (Same as:MORPh ine Sulfate) No Longer Active 12/04/2015 [facility] Ondansetron Notes: (Same as: Stephen shearer) MEDICATION WASTE Product Size: 4 mg Product Wasted: ___ mg No Longer Active 12/04/2015 [facility] Diphenhydramine Notes: (Same a s: Benadryl) Inactive 12/04/2015 [facility] Ondansetron Notes: (Same as: Stephen shearer) MEDICATION WASTE Product Size: 4 mg Product Wasted: ___ mg Inactive 12/04/2015 [facility] Promethazine 6.25 mg, Route: I VPB, ONCE, Dosing Weight 94.091, kg, PRN Nausea & Vomiting, Start date: 12/03/15 22:06:00 Inactive 12/04/2015 [facility] Oxycodone Notes: (Same as: Daphne icodone) Inactive 12/04/2015 [facility] Hydromorphone 0.5 mg, 0.5 mL, Route: IVP, Drug form: INJ, Q5Min, Dosing Weight 94.091, kg, PRN Pain Score 7-10, Start date: 12/03/15 22:06:00, Duration: 4 doses or times, Stop date: Limited # of times Inactive 12/04/2015 [facility] Fentanyl Notes: (Same as: Subl imaze) Preservative free. Inactive 12/04/2015 [facility] Meperidine Notes: (Same As: De merol) Inactive 12/04/2015 [facility] Flumazenil Notes: (Same as: Ro mazicon) Inactive 12/04/2015 [facility] Naloxone Notes: Same as Narcan Inactive 12/04/2015 [facility] Albuterol 0.83 MG/ML Inhalant Solution Notes: SEE RT DOCUMENTATION (Same as: Proventil) Inactive 12/04/2015 [facility] Hydromorphone 1 mg, 1 mL, Rout e: IVP, Drug form: INJ, Q3H, Dosing Weight 94.091, kg, PRN Pain Score 4-6, Start date: 12/03/15 22:03:00, Duration: 30 day, Stop date: 01/02/16 22:02:00 No Longer Active 12/04/2015 [facility] Morphine Notes: (Same as:MORPh ine Sulfate) No Longer Active 12/04/2015 [facility] acetaminophen-codeine #3 Notes : Do not exceed 4gm/day of acetaminophen. (Same as: Tylenol with Codeine # 3) No Longer Active 12/04/2015 [facility] Ondansetron Notes: (Same as: Stephen shearer) MEDICATION WASTE Product Size: 4 mg Product Wasted: ___ mg No Longer Active 12/04/2015 [facility] Calcium Chloride 0.0014 MEQ/ML / Potassi um Chloride 0.004 MEQ/ML / Sodium Chloride 0.103 MEQ/ML / Sodium Lactate 0.028 MEQ/ML Injectable Solution 1,000 mL, Rate: 75 ml/hr, Infuse over: 1 3.3 hr, Route: IV, Dosing Weight 94.091 kg, Total Volume: 1,000, Start date: 12/03/15 22:03:00, Duration: 30 day, Stop date: 01/02/16 22:02:00 No Longer Active 12/04/2015 [facility] dexamethasone (ANES) Route: IV , Drug form: INJ, ONCE, Stop date: 12/03/15 21:53:00 Inactive 12/04/2015 [facility] hydromorphone (ANES) Route: IV , Drug form: INJ, ONCE, Stop date: 12/03/15 21:53:00 Inactive 12/04/2015 [facility] neostigmine (ANES) Route: IV, Drug form: INJ, ONCE, Stop date: 12/03/15 21:53:00 Inactive 12/04/2015 [facility] ceFAZolin (ANES) Route: IV, ug form: INJ, ONCE, Stop date: 12/03/15 21:53:00 Inactive 12/04/2015 [facility] rocuronium (ANES) Route: IV, D rug form: INJ, ONCE, Stop date: 12/03/15 21:53:00 Inactive 12/04/2015 [facility] acetaminophen (ANES) (ANES) Ro curyung: IV, Drug form: INJ, Start date: 12/03/15 21:36:00, Stop date: 12/03/15 22:36:00 Inactive 12/04/2015 [facility] midazolam (ANES) Route: IV, ug form: SOLN, ONCE, Stop date: 12/03/15 21:22:00 Inactive 12/04/2015 [facility] lidocaine (ANES) Route: IV, Dr ug form: INJ, ONCE, Stop date: 12/03/15 21:22:00 Inactive 12/04/2015 [facility] fentaNYL (ANES) Route: IV, Brice g form: INJ, ONCE, Stop date: 12/03/15 21:22:00 Inactive 12/04/2015 [facility] glycopyrrolate (ANES) Route: I V, Drug form: INJ, ONCE, Stop date: 12/03/15 21:22:00 Inactive 12/04/2015 [facility] acetaminophen (ANES) Route: IV , Drug form: INJ, ONCE, Stop date: 12/03/15 21:22:00 Inactive 12/04/2015 [facility] ondansetron (ANES) Route: IV, Drug form: INJ, ONCE, Stop date: 12/03/15 21:22:00 Inactive 12/04/2015 [facility] neostigmine (ANES) Route: IV, Drug form: INJ, ONCE, Stop date: 12/03/15 21:22:00 Inactive 12/04/2015 [facility] propofol (ANES) Route: IV, Brice g form: INJ, ONCE, Stop date: 12/03/15 21:22:00 Inactive 12/04/2015 [facility] Lactated Ringers Injection IV (ANES) (ANES) Route: IV, Total Volume: 1,000, Start date: 12/03/15 20:47:00, Stop date: 12/03/15 21:47:00 Inactive 12/04/2015 [facility] Xopenex 0.63 mg, Route: NEB, O NCE, Dosing Weight 95, kg, PRN Respiratory Protocol, Start date: 12/03/15 13:56:00, Stop date: 01/02/16 13:55:00 Inactive 12/03/2015 [facility] Protonix Notes: For IV push re constitute with 10 ml 0.9% sodium chloride and push over 2 minutes. (Same as: Protonix) No Longer Active 12/03/2015 [facility] 200 ACTUAT Albuterol 0.09 MG/ACTUAT Mete red Dose Inhaler [Proventil] 2 puff, INHALER, Q4H, PRN wheezing, coug brooke, or shortness of breath, # 1 ea, 1 Refill(s) Active 12/03/2015 [facility] Metformin 500 mg, PO, Daily, 0 Refill(s) Active 12/03/2015 [facility] Morphine Notes: (Same as:MORPh ine Sulfate) No Longer Active 12/02/2015 [facility] Ondansetron Notes: (Same as: Stephen shearer) MEDICATION WASTE Product Size: 4 mg Product Wasted: ___ mg No Longer Active 12/02/2015 [facility] Saline Flush 0.9% Notes: (Same as: BD Posiflush) No Longer Active 12/02/2015 [facility] Sodium Chloride 0.154 MEQ/ML Injectable Solution 1,000 mL, Rate: 100 ml/hr, Infuse over: 10 hr, Route: IV, Dosing Weight 95.455 kg, Total Volume: 1,000, Start date: 12/02/15 17:14:00, Duration: 30 day, Stop date: 01/01/16 17:13:00 No Longer Active 12/02/2015 [facility] naproxen 500 mg oral tablet 50 0 mg, PO, BID, PRN Pain, # 30 tab, 0 Refill(s) Active 11/10/2015 [facility] Sulfamethoxazole 800 MG / Trimethoprim 1 60 MG Oral Tablet [Bactrim] 1 tab, PO, BID, X 7 day, # 14 tab, 0 Ref ill(s) Active 11/10/2015 [facility] Sodium Chloride 0.154 MEQ/ML Injectable Solution 1,000 mL, 1000 ml/hr, Infuse Over: 1 hr, Route: IV, 1,000, Drug form: INJ, ONCE, Priority: STAT, Dosing Weight 97.727 kg, Start date: 11/10/15 1:54:00, Duration: 1 doses or times, Stop date: 11/10/15 1:54:00 Inactive 11/10/2015 [facility] Rocephin Notes: (Same As: Amari ferris). Use with 100 mL NS and infuse over 30 min MEDICATION WASTE Product Size: 1000 mg Product Wasted: ___ mg Inactive 11/10/2015 [facility] Saline Flush 0.9% Notes: (Same as: BD Posiflush) No Longer Active 11/10/2015 [facility] Sulfamethoxazole 800 MG / Trimethoprim 1 60 MG Oral Tablet [Bactrim] Special Instructions: for UTI Active 06/11/2015 [facility] Sodium Chloride 0.154 MEQ/ML Injectable Solution 1,000 mL, 100 ml/hr, Infuse Over: 1 Hour, Route: IV, ONCE, Dosing Weight 95.455 kg, Start date: 06/10/15 22:48:00, Stop date: 06/10/15 22:48:00 Inactive 06/11/2015 [facility] Acetaminophen 650 mg, Route: P R, ONCE, Dosing Weight 95.455, kg, Priority: STAT, Start date: 06/10/15 22:42:00, Stop date: 06/10/15 22:42:00 Inactive 06/11/2015 [facility] Sodium Chloride 0.154 MEQ/ML Injectable Solution 100 mL, 100 ml/hr, Infuse Over: 1 Hour, Route: IV, ONCE, Priority: STAT, Dosing Weight 95.455 kg, Start date: 06/10/15 22:10:00, Duration: 1 doses or times, Stop date: 06/10/15 22:10:00 Inactive 06/11/2015 [facility] Protonix 40 mg, Route: IVP, ON CE, Dosing Weight 113.636, kg, Priority: STAT, Start date: 04/21/15 14:11:00, Stop date: 04/21/15 14:11:00 Inactive 04/21/2015 [facility] Benadryl 25 mg, Route: IVP, ON CE, Dosing Weight 113.636, kg, Priority: STAT, Start date: 04/21/15 14:11:00, Stop date: 04/21/15 14:11:00 Inactive 04/21/2015 [facility] Reglan 10 mg, Route: IVP, Drug form: INJ, ONCE, Dosing Weight 113.636, kg, Priority: STAT, Start date: 04/21/15 14:11:00, Stop date: 04/21/15 14:11:00 Inactive 04/21/2015 [facility] Sodium Chloride 0.154 MEQ/ML Injectable Solution 1,000 mL, 1,000 ml/hr, Infuse Over: 1 hr, Route: IV, ONCE, Priority: STAT, Dosing Weight 113.636 kg, Start date: 04/21/15 14:10:00, Duration: 1 doses or times, Stop date: 04/21/15 14:10:00 Inactive 04/21/2015 [facility] Metronidazole 500 MG Oral Tablet [Flagyl] 500 mg = 1 tab, PO, Q12H, X 7 day, # 14 tab, 0 Refill(s) Active 04/19/2015 [facility] Sulfamethoxazole 800 MG / Trimethoprim 1 60 MG Oral Tablet [Bactrim] 1 tab, PO, BID, X 7 day, # 14 tab, 0 Ref ill(s) Active 04/19/2015 [facility] Rocephin 250 mg, Route: IM, Dr wray form: PDR/INJ, ONCE, Dosing Weight 97.727, kg, Priority: STAT, Start date: 04/19/15 0:13:00, Stop date: 04/19/15 0:13:00 Inactiv e 04/19/2015 [facility] Rocephin 1 gm, Route: IVPB, Dr wray form: PDR/INJ, ONCE, Dosing Weight 97.727, kg, Priority: STAT, Start date: 04/18/15 23:47:00, Stop date: 04/18/15 23:47:00 No Longer Active 04/19/2015 [facility] Albuterol 0.833 MG/ML / Ipratropium Brom dimple 0.167 MG/ML Inhalant Solution [DuoNeb] Notes: (Same as: Duoneb) No Longer Active 04/19/2015 [facility] Tylenol Notes: Do not exceed 4 gm/day. (Same as: Tylenol) Inactive 04/19/2015 [facility] Saline Flush 0.9% Notes: (Same as: BD Posiflush) No Longer Active 04/19/2015 [facility] Sodium Chloride 0.154 MEQ/ML Injectable Solution 1,000 mL, Rate: 125 ml/hr, Infuse over: 8 hr, Route: IV, Dosing Weight 97.727 kg, Total Volume: 1,000, Start date: 04/18/15 23:10:00, Duration: 30 day, Stop date: 05/18/15 23:09:00 No Longer Active 04/19/2015 [facility] Ceftriaxone 250 mg, Route: IM, Drug form: PDR/INJ, ONCE, Dosing Weight 100, kg, Priority: STAT, Start date: 03/09/15 23:42:00, Stop date: 03/09/15 23:42:00 Inactive 03/10/2015 [facility] Ondansetron 4 MG Oral Tablet [Zofran] 4 mg = 1 tab, PO, BID, X 5 day, # 10 tab, 0 Refill(s) Active 03/10/2015 [facility] Metronidazole 500 MG Oral Tablet [Flagyl] 500 mg = 1 tab, PO, Q12H, X 14 day, # 28 tab, 0 Refill(s) Active 03/10/2015 [facility] doxycycline monohydrate 100 mg oral tablet 100 mg = 1 tab, PO, Q12H, X 14 day, # 28 tab, 0 Refill(s) Active 03/10/2015 [facility] Morphine Notes: (Same as:MORPh ine Sulfate) Inactive 03/10/2015 [facility] Sodium Chloride 0.154 MEQ/ML Injectable Solution 1,000 mL, 1,000 ml/hr, Infuse Over: 1 hr, Route: IV, 1,000, Drug form: INJ, ONCE, Priority: STAT, Dosing Weight 100 kg, Start date: 03/09/15 17:15:00, Duration: 1 doses or times, Stop date: 03/09/15 17:15:00 Inactive 03/09/2015 [facility] Zofran Notes: (Same as: Lionel ) MEDICATION WASTE Product Size: 4 mg Product Wasted: ___ mg Inactive 03/09/2015 [facility] Diflunisal 500 MG Oral Tablet [Dolobid] 500 mg = 1 tab, PO, Q8H, # 90 tab, 0 Refill(s) Active 11/04/2014 [facility] Ondansetron 4 MG Disintegrating Tablet [Zofran] Special Instructions: Dissolve tab under tongue Active 11/04/2014 [facility] Metronidazole 500 MG Oral Tablet [Flagyl] 500 mg = 1 tab, PO, Q12H, # 14 tab, 0 Refill(s) Active 11/04/2014 [facility] doxycycline monohydrate 100 mg oral tablet 100 mg = 1 tab, PO, Q12H, # 20 tab, 0 Refill(s) Active 11/04/2014 [facility] Flagyl 1,000 mg, Route: PO, ON CE, Dosing Weight 97.727, kg, Priority: STAT, Start date: 11/04/14 11:53:00, Stop date: 11/04/14 11:53:00 Inactive 11/04/2014 [facility] Rocephin 250 mg, Route: IM, Dr ug form: PDR/INJ, ONCE, Dosing Weight 97.727, kg, Priority: STAT, Start date: 11/04/14 11:53:00, Stop date: 11/04/14 11:53:00 Inactive 11/04/2014 [facility] Ketorolac 30 mg, Route: IVP, D rug form: INJ, ONCE, Dosing Weight 97.727, kg, Priority: STAT, Start date: 11/04/14 8:48:00, Stop date: 11/04/14 8:48:00 Inactiv e 11/04/2014 [facility] Ondansetron 4 MG Disintegrating Tablet Special Instructions: Dissolve tab under tongue Active 10/30/2014 [facility] Sulfamethoxazole 800 MG / Trimethoprim 1 60 MG Oral Tablet [Bactrim] 1 tab, PO, BID, # 28 tab, 0 Refill(s) Active 10/30/2014 [facility] Tylenol 975 mg, Route: PO, Brice g form: TAB, ONCE, Dosing Weight 97.727, kg, Priority: STAT, Start date: 10/30/14 8:49:00, Stop date: 10/30/14 8:49:00 Inactive 10/30/2014 [facility] Morphine 4 mg, Route: IVP, ONC E, Dosing Weight 97.727, kg, Priority: STAT, Start date: 10/30/14 8:08:00, Stop date: 10/30/14 8:08:00 Inactive 10/30/2014 [facility] Ondansetron 4 mg, Route: IVP, ONCE, Dosing Weight 97.727, kg, Priority: STAT, Start date: 10/30/14 8:08:00, Stop date: 10/30/14 8:08:00 Inactive 10/30/2014 [facility] Saline Flush 0.9% Notes: (Same as: BD Posiflush) Inactive 10/30/2014 [facility] Sodium Chloride 0.154 MEQ/ML Injectable Solution 1,000 mL, Infuse Over: 1 hr, Route: IV, ONCE, Priority: STAT, Dosing Weight 97.727 kg, Start date: 10/30/14 8:08:00, Duration: 1 doses or times, Stop date: 10/30/14 8:08:00 Inactive 10/30/2014 [facility] Phenazopyridine hydrochloride 200 MG Ora l Tablet [Pyridium] 200 mg = 1 tab, PO, TID, # 21 tab, 0 Refill(s) Active 06/23/2014 [facility] Nitrofurantoin 100 MG Oral Capsule [Macrodantin] 100 mg = 1 cap, PO, QID, # 28 cap, 0 Refill(s) Active 06/23/2014 [facility] Hydrocortisone 10 MG/ML / Neomycin 3.5 M G/ML / Polymyxin B 20345 UNT/ML Otic Solution 4 drp, RIGHT EAR, QID, # 10 mL, 0 Refill (s) Active 06/23/2014 [facility] Ondansetron 4 mg, Route: IVP, Drug form: INJ, ONCE, Dosing Weight 52.273, kg, Priority: STAT, Start date: 06/23/14 9:02:00, Stop date: 06/23/14 9:02:00 Inactiv e 06/23/2014 [facility] Sodium Chloride 0.154 MEQ/ML Injectable Solution 1,000 mL, 1,000 ml/hr, Infuse Over: 1 hr, Route: IV, ONCE, Priority: STAT, Dosing Weight 52.273 kg, Start date: 06/23/14 9:02:00, Duration: 1 doses or times, Stop date: 06/23/14 9:02:00 Inactive 06/23/2014 [facility] Albuterol 0.833 MG/ML / Ipratropium Brom dimple 0.167 MG/ML Inhalant Solution [DuoNeb] 3 mL, INHALATION, TID, Wheezing, # 90 mL , 0 Refill(s) Active 06/10/2014 [facility] predniSONE 20 mg oral tablet S pecial Instructions: Take 3 tablets for 60 mg dose Activ e 06/10/2014 [facility] 200 ACTUAT Ipratropium [place] 0.017 MG/ ACTUAT Metered Dose Inhaler [Atrovent] 1 puff, INHALATION, QID, wheezing, # 1 e a, 0 Refill(s) Active 06/10/2014 [facility] Albuterol 0.83 MG/ML Inhalant Solution 2.49 mg = 3 mL, INHALATION, Q6H, # 120 ea, 0 Refill(s) Active 06/10/2014 [facility] Prednisone Notes: Take with fo od. Inactive 06/10/2014 [facility] Albuterol 0.833 MG/ML / Ipratropium Brom dimple 0.167 MG/ML Inhalant Solution [DuoNeb] 3 mL, Route: INHALATION, Dosing Weight 9 7.727, kg, ONCE, STAT, Start date: 06/10/14 4:02:00, Stop date: 06/10/14 4:02:00 Inactive 06/10/2014 [facility] Protonix 40 mg oral enteric coated tablet 40 mg, 1 tab, PO, Daily, 30 tab, Substitution Allowed, ECTAB PO Active Yang s 07/09/2012 [facility] Ultram 50 mg oral tablet 50 mg , 1 tab, PO, Q4H, PRN, 20 tab, pain, Substitution Allowed PO Active Yang s 07/09/2012 [facility] ondansetron 4 mg oral tablet, disintegrating 4 mg, Route: PO, Drug form: TABDIS, ONCE, Dosing Weight 98.636, kg, Priority: STAT, Start date: 07/08/12 23:26:00, Stop date: 07/08/12 23:26:00 PO No Longer Active Mustapha 07/09/2012 [facility] Sodium Chloride 0.9% (Bolus) IV 1000 mL 1,000 mL, Rate: 1,000 ml/hr, Infuse over: 1 hr, Route: IV, Dosing Weight 98.636 kg, Total Volume: 1,000, Bolus Dose, Priority: STAT, Start date: 07/08/12 22:50:00, Duration: 1 doses or times, Stop date: 07/08/12 23:49:00 IV No Longer Active Mustapha 07/09/2012 [facility] morphine Sulfate 4 mg, Route: IVP, ONCE, Dosing Weight 98.636, kg, Priority: STAT, Start date: 07/08/12 22:50:00, Stop date: 07/08/12 22:50:00 IVP No Longer Active Luciano 07/09/2012 [facility] METRONIDazole 500 mg oral tablet 500 mg, 1 tab, PO, Q12H, 14 tab, Substitution Allowed PO Active Ulisses r 04/16/2012 [facility] naproxen 500 mg oral tablet 50 0 mg, 1 tab, PO, BID, PRN, 30 tab, Pain, Substitution Allowed PO Active Ulisses r 04/16/2012 [facility] DuoNeb inhalation solution 3 m l, INHALATION, QID, PRN, 30 ea, as needed for shortness of breath or wheezing, Substitution Allowed, Maintenance, SOLN INHALATION Active [place] 11/11/2011 [facility] DuoNeb inhalation solution 3 m l, Route: INHALATION, Drug Form: SOLN, QID, PRN See Respiratory Notes, Start date: 11/10/11 23:16:00, Duration: 30 day, Stop date: 12/10/11 23:15:00, once INHALATION No Longer Active [place] 11/11/2011 [facility] Motrin Route: PO, ONCE, Start date: 11/10/11 23:15:00, Stop date: 11/10/11 23:15:00 PO No Longer Active [place] 11/11/2011 [facility] Ultram 50 mg oral tablet 1 - 2 tabs, PO, Q4-6H, PRN, 30 tab, as needed for pain, Substitution Allowed PO Active Kimb all 11/11/2011 [facility] Saline Flush 0.9% 5 ml, Route: IVP, PRN, PRN Line Flush, Start date: 11/10/11 22:05:00, Duration: 24 hr, Stop date: 11/11/11 22:04:00 IVP No Longer Active [place] 11/2011 [facility] Ultram 50 mg oral tablet 50 mg , 1 tab, Route: PO, Drug form: TAB, Q4H, PRN Pain, Start date: 11/10/11 21:59:00, Duration: 30 day, Stop date: 12/10/11 21:58:00 PO No Longer Active Callum 11/11/2011 [facility] doxycycline hyclate 100 mg oral tablet 100 mg, 1 tab, PO, BID, 20 tab, Substitution Allowed, TAB PO Active [employer] 10/16/2011 [facility] Naprosyn 500 mg oral tablet 50 0 mg, 1 tab, PO, BID, 20 tab, Substitution Allowed, TAB PO Active Soum an 10/16/2011 [facility] Saline Flush 0.9% 5 ml, Route: IVP, Drug Form: INJ, PRN, PRN Line Flush, Start date: 10/15/11 13:56:00, Duration: 24 hr, Stop date: 10/16/11 13:55:00 IVP No Longer Active [facility] 10/15/2011 [facility] Allergies, Adverse Reactions, Alerts Substance Category Reaction Severity Reaction type Status Date Reported Comments Source Cipro Assertion Drug allergy Active [facility] erythromycin Assertion Drug allergy Active [facility] hydrocodone Assertion Drug allergy Active [facility] Phenergan Assertion Drug allergy Active [facility] Stadol Assertion Drug allergy Active [facility] predniSONE Assertion Drug allergy Active [facility] aspirin Assertion Drug allergy Active [facility] nitrous oxide Assertion Drug allergy Active [facility] HYDROcodone Assertion Drug allergy Active [facility] ciprofloxacin Assertion Drug allergy Active [facility] Immunizations No Data Provided for This Section Results Order Name Results Value Reference Range Date Interpretation Comments Source CARDIAC ENZYMES Troponin-I <0.02 0.00 - 0.40 07/30/2017 [facility] CARDIAC ENZYMES Total CK 74 12 - 191 07/30/2017 [facility] CARDIAC ENZYMES CK MB 0.7 0.5 - 3.6 07/30/2017 [facility] CARDIAC ENZYMES CK MB Index 0.9 0.0 - 2.5 07/30/2017 [facility] CARDIAC ENZYMES Troponin-I <0.02 0.00 - 0.40 07/30/2017 [facility] CARDIAC ENZYMES Total CK 80 12 - 191 07/30/2017 [facility] LIPIDS VLDL 13 07/30/2017 [facility] LIPIDS LDL (Calculated) 87 <=99 mg/dL 07/30/2017 [facility] LIPIDS Chol 186 <=199 mg/dL 07/30/2017 [facility] LIPIDS Trig 66 <=149 mg/dL 07/30/2017 [facility] LIPIDS HDL 86 >=61 mg/dL 07/30/2017 [facility] LIPIDS CHD Risk 2.16 3.90 - 5.80 07/30/2017 [facility] CARDIAC ENZYMES Total CK 91 12 - 191 07/30/2017 [facility] CARDIAC ENZYMES CK MB 0.8 0.5 - 3.6 07/30/2017 [facility] CARDIAC ENZYMES Troponin-I <0.02 0.00 - 0.40 07/30/2017 [facility] CARDIAC ENZYMES CK MB Index 0.9 0.0 - 2.5 07/30/2017 [facility] CHEM PANEL Lipase Lvl 207 73 - 393 07/30/2017 [facility] CHEM PANEL eGFR 106 07/30/2017 [...] should be multiplied by the estimated BMI. [facility] CHEM PANEL Bili Total 0.4 0.2 - 1.3 07/30/2017 [facility] CHEM PANEL AGAP 11.5 10.0 - 20.0 07/30/2017 [facility] CHEM PANEL Alk Phos 77 39 - 136 07/30/2017 [facility] CHEM PANEL Total Protein 7.1 6.4 - 8.4 07/30/2017 [facility] CHEM PANEL ALT 28 0 - 65 07/30/2017 [facility] CHEM PANEL AST 13 0 - 37 07/30/2017 [facility] CHEM PANEL Albumin Lvl 3.4 3.5 - 5.0 07/30/2017 [facility] CHEM PANEL BUN 14 7 - 22 07/30/2017 [facility] CHEM PANEL Glucose Lvl 177 70 - 99 07/30/2017 [facility] CHEM PANEL Creatinine Lvl 0.75 0.50 - 1.40 07/30/2017 [facility] CHEM PANEL Sodium Lvl 139 135 - 145 07/30/2017 [facility] CHEM PANEL Chloride Lvl 105 95 - 109 07/30/2017 [facility] CHEM PANEL CO2 26 24 - 32 07/30/2017 [facility] CHEM PANEL Potassium Lvl 3.5 3.5 - 5.1 07/30/2017 [facility] CHEM PANEL Calcium Lvl 9.1 8.5 - 10.5 07/30/2017 [facility] CHEM PANEL Globulin 3.7 2.7 - 4.2 07/30/2017 [facility] CHEM PANEL A/G Ratio 0.9 0.7 - 1.6 07/30/2017 [facility] CHEM PANEL B/C Ratio 19 6 - 25 07/30/2017 [facility] CHEM PANEL Ketone Quantitative 0.11 <=0.27 mmol/L 07/30/2017 [facility] DRUG SCREEN U Phencyc Scr Nega tive *NA* (07/30/17 9:23 AM) Negative 07/30/2017 [facility] DRUG SCREEN U Opiate Scr Nega tive *NA* (07/30/17 9:23 AM) Negative 07/30/2017 [facility] DRUG SCREEN U Cocaine Scr Nega tive *NA* (07/30/17 9:23 AM) Negative 07/30/2017 [facility] DRUG SCREEN U Benzodia Scr Nega tive *NA* (07/30/17 9:23 AM) Negative 07/30/2017 [facility] DRUG SCREEN U Cannab Scr Nega tive *NA* (07/30/17 9:23 AM) Negative 07/30/2017 [facility] DRUG SCREEN U Jocelyn Scr Nega tive *NA* (07/30/17 9:23 AM) Negative 07/30/2017 [facility] DRUG SCREEN U Amph Scr Nega tive *NA* (07/30/17 9:23 AM) Negative 07/30/2017 [facility] DRUG SCREEN UDS Note See Note *NA* (07/30/17 9:23 AM) 07/30/2017 [facility] ENDOCRINOLOGY S Preg Ne gative *NA* (07/30/17 9:23 AM) Negative 07/30/2017 [facility] HEMATOLOGY PTT 30.2 22.9 - 35.8 07/30/2017 [facility] HEMATOLOGY PT 13.7 12.0 - 14.7 07/30/2017 [facility] HEMATOLOGY INR 1.05 0.85 - 1.17 07/30/2017 [facility] HEMATOLOGY D-Dimer <0.27 07/30/2017 [facility] HEMATOLOGY MCHC 33.1 32.0 - 36.0 07/30/2017 [facility] HEMATOLOGY RDW 14.8 11.5 - 14.5 07/30/2017 [facility] HEMATOLOGY MPV 8.8 7.4 - 10.4 07/30/2017 [facility] HEMATOLOGY Platelet 296 133 - 450 07/30/2017 [facility] HEMATOLOGY Hgb 12.2 12.0 - 16.0 07/30/2017 [facility] HEMATOLOGY Hct 36.7 36.0 - 48.0 07/30/2017 [facility] HEMATOLOGY RBC 4.55 4.20 - 5.40 07/30/2017 [facility] HEMATOLOGY WBC 9.9 3.7 - 10.4 07/30/2017 [facility] HEMATOLOGY MCH 26.7 27.0 - 31.0 07/30/2017 [facility] HEMATOLOGY MCV 80.8 80.0 - 98.0 07/30/2017 [facility] HEMATOLOGY Segs-Bands # 6.6 1.5 - 8.1 07/30/2017 [facility] HEMATOLOGY Lymphocytes # 2.5 1.0 - 5.5 07/30/2017 [facility] HEMATOLOGY Basophils # 0.1 0.0 - 0.2 07/30/2017 [facility] HEMATOLOGY Monocytes # 0.4 0.0 - 0.8 07/30/2017 [facility] HEMATOLOGY Eosinophils # 0.2 0.0 - 0.5 07/30/2017 [facility] HEMATOLOGY Segs 67.5 45.0 - 75.0 07/30/2017 [facility] HEMATOLOGY Lymphocytes 25.3 20.0 - 40.0 07/30/2017 [facility] HEMATOLOGY Eosinophils 2.4 0.0 - 4.0 07/30/2017 [facility] HEMATOLOGY Basophils 0.7 0.0 - 1.0 07/30/2017 [facility] HEMATOLOGY Monocytes 4.1 2.0 - 12.0 07/30/2017 [facility] URINE AND STOOL UA Urobilinogen <=1.0 mg/dL 0.1 - 1.0 07/30/2017 [facility] URINE AND STOOL UA Bili Negative *NA* (07/30/17 9:23 AM) Negative 07/30/2017 [facility] URINE AND STOOL UA Ketones Negative mg/dL Negative mg/dL 07/30/2017 [facility] URINE AND STOOL UA Glucose 50 mg/dL Negative mg/dL 07/30/2017 [facility] URINE AND STOOL UA Sq Epi Few /LPF Few /LPF 07/30/2017 [facility] URINE AND STOOL UA Leuk Est Trace *ABN* (07/30/17 9:23 AM) Negative 07/30/2017 [facility] URINE AND STOOL UA Nitrite Negative (07/30/17 9:23 AM) Negative 07/30/2017 [facility] URINE AND STOOL UA Blood Negative (07/30/17 9:23 AM) Negative 07/30/2017 [facility] URINE AND STOOL UA Bacteria Occasional /HPF None Seen /HPF 07/30/2017 [facility] URINE AND STOOL UA RBC <1 0 - 2 07/30/2017 [facility] URINE AND STOOL UA WBC 4 0 - 5 07/30/2017 [facility] URINE AND STOOL UA Mucus Few /LPF None Seen /LPF 07/30/2017 [facility] URINE AND STOOL UA pH 7.0 5.0 - 8.0 07/30/2017 [facility] URINE AND STOOL UA Spec Grav 1.006 <=1.030 07/30/2017 [facility] URINE AND STOOL UA Protein Negative mg/dL Negative mg/dL 07/30/[facility] STOOL UA Turbidity Clear (07/30/17 9:23 AM) Clear 07/30/2017 [facility] URINE AND STOOL UA Color Light Yellow *NA* (07/30/17 9:23 AM) Yellow 07/30/2017 [facility] CHEM PANEL Bili Total 0.2 0.2 - 1.3 09/21/2016 [facility] eGFR 101 09/21/2016 Result Comment: The eGFR [...] should be multiplied by the estimated BMI. [facility] CHEM PANEL Glucose Lvl 210 70 - 99 09/21/2016 [facility] CHEM PANEL Creatinine Lvl 0.78 0.50 - 1.40 09/21/2016 [facility] CHEM PANEL Sodium Lvl 136 135 - 145 09/21/2016 [facility] CHEM PANEL BUN 13 7 - 22 09/21/2016 [facility] CHEM PANEL Total Protein 7.3 6.4 - 8.4 09/21/2016 [facility] CHEM PANEL Albumin Lvl 3.3 3.5 - 5.0 09/21/2016 [facility] CHEM PANEL ALT 23 0 - 65 09/21/2016 [facility] CHEM PANEL Alk Phos 74 39 - 136 09/21/2016 [facility] CHEM PANEL AST 11 0 - 37 09/21/2016 [facility] CHEM PANEL CO2 20 24 - 32 09/21/2016 [facility] CHEM PANEL Calcium Lvl 8.3 8.5 - 10.5 09/21/2016 [facility] CHEM PANEL Chloride Lvl 103 95 - 109 09/21/2016 [facility] CHEM PANEL Potassium Lvl 3.1 3.5 - 5.1 09/21/2016 [facility] CHEM PANEL A/G Ratio 0.8 0.7 - 1.6 09/21/2016 [facility] CHEM PANEL AGAP 16.1 10.0 - 20.0 09/21/2016 [facility] CHEM PANEL B/C Ratio 17 6 - 25 09/21/2016 [facility] CHEM PANEL Globulin 4.0 2.7 - 4.2 09/21/2016 [facility] [place] [id number] 09/21/2016 [facility] HEMATOLOGY Monocytes # 0.6 0.0 - 0.8 09/21/2016 [facility] HEMATOLOGY Eosinophils # 0.2 0.0 - 0.5 09/21/2016 [facility] HEMATOLOGY Segs-Bands # 7.0 1.5 - 8.1 09/21/2016 [facility] HEMATOLOGY Lymphocytes # 2.3 1.0 - 5.5 09/21/2016 [facility] HEMATOLOGY Basophils 2.9 0.0 - 1.0 09/21/2016 [facility] HEMATOLOGY Eosinophils 1.8 0.0 - 4.0 09/21/2016 [facility] HEMATOLOGY Lymphocytes 22.2 20.0 - 40.0 09/21/2016 [facility] HEMATOLOGY Monocytes 6.0 2.0 - 12.0 09/21/2016 [facility] HEMATOLOGY Segs 67.1 45.0 - 75.0 09/21/2016 [facility] HEMATOLOGY Basophils # 0.3 0.0 - 0.2 09/21/2016 [facility] HEMATOLOGY MPV 9.4 7.4 - 10.4 09/21/2016 [facility] HEMATOLOGY RDW 14.8 11.5 - 14.5 09/21/2016 [facility] HEMATOLOGY Platelet 303 133 - 450 09/21/2016 [facility] HEMATOLOGY MCH 26.0 27.0 - 31.0 09/21/2016 [facility] MCHC 32.6 32.0 - 36.0 09/21/2016 [facility] HEMATOLOGY MCV 79.8 80.0 - 98.0 09/21/2016 [facility] HEMATOLOGY Hct 37.8 36.0 - 48.0 09/21/2016 [facility] RBC 4.74 4.20 - 5.40 09/21/2016 [facility] Hgb 12.3 12.0 - 16.0 09/21/2016 [facility] WBC 10.4 3.7 - 10.4 09/21/2016 [facility] URINE AND STOOL UA Nitrite Negative (09/21/16 1:09 PM) Negative 09/21/2016 [facility] URINE AND STOOL UA Leuk Est Moderate *ABN* (09/21/16 1:09 PM) Negative 09/21/2016 [facility] URINE AND STOOL UA Blood Small *ABN* (09/21/16 1:09 PM) Negative 09/21/2016 [facility] URINE AND STOOL UA Urobilinogen <=1.0 mg/dL 0.1 - 1.0 09/21/2016 [facility] URINE AND STOOL UA Spec Grav 1.018 <=1.030 09/21/2016 [facility] URINE AND STOOL UA Color Light Yellow *NA* (09/21/16 1:09 PM) Yellow 09/21/2016 [facility] URINE AND STOOL UA Turbidity Slight *ABN* (09/21/16 1:09 PM) Clear 09/21/2016 [facility] URINE AND STOOL UA Bili Negative *NA* (09/21/16 1:09 PM) Negative 09/21/2016 [facility] URINE AND STOOL UA Ketones 20 mg/dL Negative mg/dL 09/21/2016 [facility] URINE AND STOOL UA Glucose 500 mg/dL Negative mg/dL 09/21/2016 [facility] URINE AND STOOL UA Protein Negative mg/dL Negative mg/dL 09/21/2016 [facility] URINE AND STOOL UA pH 6.0 5.0 - 8.0 09/21/2016 [facility] URINE AND STOOL UA RBC 3 0 - 2 09/21/2016 [facility] URINE AND STOOL UA WBC 56 0 - 5 09/21/2016 [facility] URINE AND STOOL UA Sq Epi Many /LPF Few /LPF 09/21/2016 [facility] URINE AND STOOL UA Mucus Few /LPF None Seen /LPF 09/21/2016 [facility] URINE AND STOOL UA Bacteria Few /HPF None Seen /HPF 09/21/2016 [facility] MOLECULAR DIAGNOSTIC N gonorrhea by Amp Det (APTIMA) Negative *NA* (09/16/16 5:09 PM) Negative 09/16/2016 [facility] MOLECULAR DIAGNOSTIC Source APTIMA Vaginal (09/16/16 5:09 PM) 09/16/2016 [facility] MOLECULAR DIAGNOSTIC C trachomatis b y Amp Det (APTIMA) Negative *NA* (09/16/16 5:09 PM) Negative 09/16/2016 [facility] MOLECULAR DIAGNOSTIC Source APTIMA Vaginal (09/16/16 5:09 PM) 09/16/2016 [facility] URINE AND STOOL UA Color Ltyellow 09/16/2016 [facility] URINE AND STOOL UA Urobilinogen <=1.0 mg/dL 0.1 - 1.0 09/16/2016 [facility] URINE AND STOOL UA Sq Epi Few /LPF Few /LPF 09/16/2016 [facility] URINE AND STOOL UA Bacteria Occasional /HPF None Seen /HPF 09/16/2016 [facility] URINE AND STOOL UA RBC 1 0 - 2 09/16/2016 [facility] URINE AND STOOL UA Mucus Few /LPF None Seen /LPF 09/16/2016 [facility] URINE AND STOOL UA WBC 20 0 - 5 09/16/2016 [facility] URINE AND STOOL UA Spec Grav 1.015 <=1.030 09/16/2016 [facility] URINE AND STOOL UA Turbidity Clear (09/16/16 3:19 PM) Clear 09/16/2016 [facility] URINE AND STOOL UA Ketones 20 mg/dL Negative mg/dL 09/16/2016 [facility] URINE AND STOOL UA Bili Negative *NA* (09/16/16 3:19 PM) Negative 09/16/2016 [facility] URINE AND STOOL UA Protein Negative mg/dL Negative mg/dL 09/16/[address] [facility] [address] URINE AND STOOL UA Glucose Negative mg/dL Negative mg/dL 09/16/[address] [facility] [address] URINE AND STOOL UA pH 5.0 5.0 - 8.0 09/16/2016 [facility] URINE AND STOOL UA Blood Moderate *ABN* (09/16/16 3:19 PM) Negative 09/16/2016 [facility] URINE AND STOOL UA Nitrite Negative (09/16/16 3:19 PM) Negative 09/16/2016 [facility] URINE AND STOOL UA Leuk Est Moderate *ABN* (09/16/16 3:19 PM) Negative 09/16/2016 [facility] URINE CHEM U Preg Posit jesus *ABN* (09/16/16 3:19 PM) Negative 09/16/2016 [facility] BLOOD BANK RESULTS ABO/Rh B POS 09/16/2016 [facility] CHEM PANEL eGFR 105 09/16/2016 Result [...] should be multiplied by the estimated BMI. [facility] CHEM PANEL CO2 23 24 - 32 09/16/2016 [facility] CHEM PANEL Albumin Lvl 3.4 3.5 - 5.0 09/16/2016 [facility] CHEM PANEL ALT 25 0 - 65 09/16/2016 [facility] CHEM PANEL Calcium Lvl 8.2 8.5 - 10.5 09/16/2016 [facility] CHEM PANEL Total Protein 7.7 6.4 - 8.4 09/16/2016 [facility] CHEM PANEL Glucose Lvl 156 70 - 99 09/16/2016 [facility] CHEM PANEL BUN 9 7 - 22 09/16/2016 [facility] CHEM PANEL Potassium Lvl 3.4 3.5 - 5.1 09/16/2016 [facility] CHEM PANEL Chloride Lvl 101 95 - 109 09/16/2016 [facility] CHEM PANEL Creatinine Lvl 0.76 0.50 - 1.40 09/16/2016 [facility] CHEM PANEL Sodium Lvl 134 135 - 145 09/16/2016 [facility] CHEM PANEL AST 21 0 - 37 09/16/2016 [facility] CHEM PANEL Alk Phos 77 39 - 136 09/16/2016 [facility] CHEM PANEL Bili Total 0.4 0.2 - 1.3 09/16/2016 [facility] CHEM PANEL Globulin 4.3 2.7 - 4.2 09/16/2016 [facility] CHEM PANEL A/G Ratio 0.8 0.7 - 1.6 09/16/2016 [facility] CHEM PANEL B/C Ratio 12 6 - 25 09/16/2016 [facility] CHEM PANEL AGAP 13.4 10.0 - 20.0 09/16/2016 [facility] ENDOCRINOLOGY hCG Tot 4502 09/16/2016 [facility] HEMATOLOGY Eosinophils 2.9 0.0 - 4.0 09/16/2016 [facility] HEMATOLOGY Lymphocytes 28.8 20.0 - 40.0 09/16/2016 [facility] HEMATOLOGY Monocytes 5.1 2.0 - 12.0 09/16/2016 [facility] HEMATOLOGY Basophils # 0.1 0.0 - 0.2 09/16/2016 [facility] HEMATOLOGY Monocytes # 0.5 0.0 - 0.8 09/16/2016 [facility] HEMATOLOGY Eosinophils # 0.3 0.0 - 0.5 09/16/2016 [facility] HEMATOLOGY Segs-Bands # 6.3 1.5 - 8.1 09/16/2016 [facility] HEMATOLOGY Basophils 0.6 0.0 - 1.0 09/16/2016 [facility] HEMATOLOGY Lymphocytes # 2.9 1.0 - 5.5 09/16/2016 [facility] HEMATOLOGY Segs 62.6 45.0 - 75.0 09/16/2016 [facility] HEMATOLOGY WBC 10.1 3.7 - 10.4 09/16/2016 [facility] HEMATOLOGY MPV 9.3 7.4 - 10.4 09/16/2016 [facility] HEMATOLOGY RDW 14.9 11.5 - 14.5 09/16/2016 [facility] HEMATOLOGY Platelet 320 133 - 450 09/16/2016 [facility] HEMATOLOGY MCV 80.2 80.0 - 98.0 09/16/2016 [facility] HEMATOLOGY Hct 41.8 36.0 - 48.0 09/16/2016 [facility] HEMATOLOGY MCHC 32.2 32.0 - 36.0 09/16/2016 [facility] HEMATOLOGY MCH 25.8 27.0 - 31.0 09/16/2016 [facility] HEMATOLOGY Hgb 13.5 12.0 - 16.0 09/16/2016 [facility] HEMATOLOGY RBC 5.22 4.20 - 5.40 09/16/2016 [facility] URINE AND STOOL UA Urobilinogen <=1.0 mg/dL 0.1 - 1.0 07/13/2016 [facility] URINE AND STOOL UA Mucus Few /LPF None Seen /LPF 07/13/2016 [facility] URINE AND STOOL UA RBC 3 0 - 2 07/13/2016 [facility] URINE AND STOOL UA Glucose 50 mg/dL Negative mg/dL 07/13/2016 [facility] URINE AND STOOL UA Ketones Trace mg/dL Negative mg/dL 07/13/2016 [facility] URINE AND STOOL UA Leuk Est Moderate *ABN* (07/13/16 12:42 AM) Negative 07/13/2016 [facility] URINE AND STOOL UA Bili Negative *NA* (07/13/16 12:42 AM) Negative 07/13/2016 [facility] URINE AND STOOL UA Protein Negative mg/dL Negative mg/dL 07/13/2016 [facility] URINE AND STOOL UA Blood Small *ABN* (07/13/16 12:42 AM) Negative 07/13/2016 [facility] URINE AND STOOL UA Sq Epi Many /LPF Few /LPF 07/13/2016 [facility] URINE AND STOOL UA WBC 16 0 - 5 07/13/2016 [facility] URINE AND STOOL UA Nitrite Negative (07/13/16 12:42 AM) Negative 07/13/2016 [facility] URINE AND STOOL UA Bacteria Occasional /HPF None Seen /HPF 07/13/2016 [facility] URINE AND STOOL UA pH 5.0 5.0 - 8.0 07/13/2016 [facility] URINE AND STOOL UA Spec Grav 1.025 <=1.030 07/13/2016 [facility] URINE AND STOOL UA Turbidity Slight *ABN* (07/13/16 12:42 AM) Clear 07/13/2016 [facility] URINE AND STOOL UA Color Yellow *NA* (07/13/16 12:42 AM) Yellow 07/13/2016 [facility] CARDIAC ENZYMES CK MB 0.7 0.5 - 3.6 07/13/2016 [facility] CARDIAC ENZYMES Total CK 68 12 - 191 07/13/2016 [facility] CARDIAC ENZYMES Troponin-I <0.02 0.00 - 0.40 07/13/2016 [facility] CARDIAC ENZYMES CK MB Index 1.0 0.0 - 2.5 07/13/2016 [facility] CHEM PANEL Bili Total 0.3 0.2 - 1.3 07/13/2016 [facility] CHEM PANEL A/G Ratio 0.9 0.7 - 1.6 07/13/2016 [facility] CHEM PANEL Total Protein 7.7 6.4 - 8.4 07/13/2016 [facility] CHEM PANEL Globulin 4.1 2.7 - 4.2 07/13/2016 [facility] CHEM PANEL AST 26 0 - 37 07/13/2016 [facility] CHEM PANEL ALT 41 0 - 65 07/13/2016 [facility] CHEM PANEL Alk Phos 84 39 - 136 07/13/2016 [facility] CHEM PANEL Albumin Lvl 3.6 3.5 - 5.0 07/13/2016 [facility] CHEM PANEL eGFR 93 07/13/2016 Result [...] should be multiplied by the estimated BMI. [facility] CHEM PANEL Chloride Lvl 104 95 - 109 07/13/2016 [facility] CHEM PANEL CO2 23 24 - 32 07/13/2016 [facility] CHEM PANEL Sodium Lvl 137 135 - 145 07/13/2016 [facility] CHEM PANEL Potassium Lvl 3.6 3.5 - 5.1 07/13/2016 [facility] CHEM PANEL B/C Ratio 20 6 - 25 07/13/2016 [facility] CHEM PANEL Calcium Lvl 8.6 8.5 - 10.5 07/13/2016 [facility] CHEM PANEL AGAP 13.6 10.0 - 20.0 07/13/2016 [facility] CHEM PANEL Glucose Lvl 204 70 - 99 07/13/2016 [facility] CHEM PANEL BUN 17 7 - 22 07/13/2016 [facility] CHEM PANEL Creatinine Lvl 0.84 0.50 - 1.40 07/13/2016 [facility] HEMATOLOGY PTT 30.9 22.9 - 35.8 07/13/2016 [facility] HEMATOLOGY RBC 4.81 4.20 - 5.40 07/13/2016 [facility] HEMATOLOGY RDW 14.7 11.5 - 14.5 07/13/2016 [facility] HEMATOLOGY Platelet 336 133 - 450 07/13/2016 [facility] HEMATOLOGY Hgb 12.3 12.0 - 16.0 07/13/2016 [facility] HEMATOLOGY Hct 38.1 36.0 - 48.0 07/13/2016 [facility] HEMATOLOGY WBC 11.1 3.7 - 10.4 07/13/2016 [facility] HEMATOLOGY MPV 9.1 7.4 - 10.4 07/13/2016 [facility] HEMATOLOGY MCH 25.6 27.0 - 31.0 07/13/2016 [facility] HEMATOLOGY MCHC 32.3 32.0 - 36.0 07/13/2016 [facility] HEMATOLOGY MCV 79.2 80.0 - 98.0 07/13/2016 [facility] HEMATOLOGY PT 14.6 12.0 - 14.7 07/13/2016 [facility] HEMATOLOGY INR 1.12 0.85 - 1.17 07/13/2016 [facility] HEMATOLOGY D-Dimer <0.22 07/13/2016 [facility] HEMATOLOGY Eosinophils # 0.3 0.0 - 0.5 07/13/2016 [facility] HEMATOLOGY Basophils # 0.1 0.0 - 0.2 07/13/2016 [facility] HEMATOLOGY Segs-Bands # 6.9 1.5 - 8.1 07/13/2016 [facility] HEMATOLOGY Eosinophils 2.6 0.0 - 4.0 07/13/2016 [facility] HEMATOLOGY Segs 61.7 45.0 - 75.0 07/13/2016 [facility] HEMATOLOGY Lymphocytes # 3.4 1.0 - 5.5 07/13/2016 [facility] HEMATOLOGY Monocytes # 0.5 0.0 - 0.8 07/13/2016 [facility] HEMATOLOGY Basophils 0.6 0.0 - 1.0 07/13/2016 [facility] HEMATOLOGY Lymphocytes 30.7 20.0 - 40.0 07/13/2016 [facility] HEMATOLOGY Monocytes 4.4 2.0 - 12.0 07/13/2016 [facility] URINE CHEM U Preg Negat jesus (07/10/16 1:06 PM) Negative 07/10/2016 [facility] CARDIAC ENZYMES CK MB Index 1.4 0.0 - 2.5 07/07/2016 [facility] CARDIAC ENZYMES Troponin-I <0.02 0.00 - 0.40 07/07/2016 [facility] CARDIAC ENZYMES Total CK 51 12 - 191 07/07/2016 [facility] CARDIAC ENZYMES CK MB 0.7 0.5 - 3.6 07/07/2016 [facility] CHEM PANEL eGFR 103 07/07/2016 Result [...] should be multiplied by the estimated BMI. [facility] CHEM PANEL Glucose Lvl 187 70 - 99 07/07/2016 [facility] CHEM PANEL BUN 18 7 - 22 07/07/2016 [facility] CHEM PANEL Chloride Lvl 106 95 - 109 07/07/2016 [facility] CHEM PANEL Sodium Lvl 137 135 - 145 07/07/2016 [facility] CHEM PANEL Potassium Lvl 3.2 3.5 - 5.1 07/07/2016 [facility] CHEM PANEL Creatinine Lvl 0.77 0.50 - 1.40 07/07/2016 [facility] CHEM PANEL A/G Ratio 0.9 0.7 - 1.6 07/07/2016 [facility] CHEM PANEL Globulin 3.8 2.7 - 4.2 07/07/2016 [facility] CHEM PANEL Albumin Lvl 3.3 3.5 [...] Eosinophils # 0.3 0.0 - 0.5 07/07/2016 [facility] HEMATOLOGY Lymphocytes # 3.3 1.0 - [...] HEMATOLOGY PT 14.0 12.0 - 14.7 07/07/2016 [facility] HEMATOLOGY Platelet 316 133 - 450 07/07/2016 [facility] HEMATOLOGY MPV 8.8 7.4 - 10.4 07/07/2016 [facility] HEMATOLOGY RDW 14.6 11.5 - 14.5 07/07/2016 [facility] HEMATOLOGY MCHC 32.2 32.0 - 36.0 07/07/2016 [facility] HEMATOLOGY Hct 36.3 36.0 - 48.0 07/07/2016 [facility] HEMATOLOGY WBC 11.3 3.7 - 10.4 07/07/2016 [facility] HEMATOLOGY Hgb 11.7 12.0 - 16.0 07/07/2016 [facility] HEMATOLOGY RBC 4.57 4.20 - 5.40 07/07/2016 [facility] HEMATOLOGY MCH 25.6 27.0 - 31.0 07/07/2016 [facility] HEMATOLOGY MCV 79.3 80.0 - 98.0 07/07/2016 [facility] URINE AND STOOL UA Urobilinogen <=1.0 mg/dL 0.1 - 1.0 07/07/[address] [facility] [address] URINE AND STOOL UA Color Red 07/07/2016 [facility] URINE AND STOOL UA Nitrite Negative (07/07/16 5:15 PM) Negative 07/07/2016 [facility] URINE AND STOOL UA Leuk Est Negative (07/07/16 5:15 PM) Negative 07/07/2016 [facility] URINE AND STOOL UA Blood Large [...] UA Ketones Negative mg/dL Negative mg/dL 07/07/[address] [facility] [address] URINE AND STOOL UA Bili Negative *NA* (07/07/16 5:15 PM) Negative 07/07/2016 [facility] URINE AND STOOL UA pH 6.0 5.0 - 8.0 07/07/2016 [facility] URINE AND STOOL UA Glucose 50 mg/dL Negative mg/dL 07/07/2016 [facility] URINE AND STOOL UA Protein 100 mg/dL Negative mg/dL 07/07/2016 [facility] URINE AND STOOL UA Turbidity Marked *ABN* (07/07/16 5:15 PM) Clear 07/07/2016 [facility] CARDIAC ENZYMES Troponin-I <0.02 0.00 - 0.40 06/20/2016 [facility] HEMATOLOGY D-Dimer <0.22 06/20/2016 [facility] CARDIAC ENZYMES CK MB Index 1.0 0.0 - 2.5 06/19/2016 [facility] CARDIAC ENZYMES Troponin-I <0.02 0.00 - 0.40 06/19/2016 [facility] CARDIAC ENZYMES Total CK 61 12 - 191 06/19/2016 [facility] CARDIAC ENZYMES CK MB 0.6 0.5 - 3.6 06/19/2016 [facility] CHEM PANEL A/G Ratio 0.9 0.7 - 1.6 06/19/2016 [facility] CHEM PANEL AST 18 0 - 37 06/19/2016 [facility] CHEM PANEL B/C Ratio 22 6 - 25 06/19/2016 [facility] CHEM PANEL Alk Phos 82 39 - 136 06/19/2016 [facility] CHEM PANEL Globulin 3.9 2.7 - 4.2 06/19/2016 [facility] CHEM PANEL Bili Total 0.2 0.2 - 1.3 06/19/2016 [facility] CHEM PANEL AGAP 10.7 10.0 - 20.0 06/19/2016 [facility] CHEM PANEL CO2 25 24 - 32 06/19/2016 [facility] CHEM PANEL Calcium Lvl 8.6 8.5 - 10.5 06/19/2016 [facility] CHEM PANEL Albumin Lvl 3.6 3.5 - 5.0 06/19/2016 [facility] CHEM PANEL ALT 34 0 - 65 06/19/2016 [facility] CHEM PANEL Total Protein 7.5 6.4 - 8.4 06/19/2016 [facility] CHEM PANEL Potassium Lvl 3.7 3.5 - 5.1 06/19/2016 [facility] CHEM PANEL Chloride Lvl 105 95 - 109 06/19/2016 [facility] CHEM PANEL eGFR 102 06/19/2016 Result [...] should be multiplied by the estimated BMI. [facility] CHEM PANEL Sodium Lvl 137 135 - 145 06/19/2016 [facility] CHEM PANEL Creatinine Lvl 0.78 0.50 - 1.40 06/19/2016 [facility] CHEM PANEL BUN 17 7 - 22 06/19/2016 [facility] CHEM PANEL Glucose Lvl 215 70 - 99 06/19/2016 [facility] ENDOCRINOLOGY S Preg Ne gative *NA* (06/18/16 10:14 PM) Negative 06/19/2016 [facility] HEMATOLOGY Eosinophils # 0.4 0.0 - 0.5 06/19/2016 [facility] HEMATOLOGY Monocytes # 0.8 0.0 - 0.8 06/19/2016 [facility] HEMATOLOGY Basophils 1.4 0.0 - 1.0 06/19/2016 [facility] HEMATOLOGY Lymphocytes # 3.4 1.0 - 5.5 06/19/2016 [facility] HEMATOLOGY Segs-Bands # 7.3 1.5 - 8.1 06/19/2016 [facility] HEMATOLOGY Basophils # 0.2 0.0 - 0.2 06/19/2016 [facility] HEMATOLOGY Eosinophils 3.0 0.0 - 4.0 06/19/2016 [facility] HEMATOLOGY Monocytes 6.3 2.0 - 12.0 06/19/2016 [facility] HEMATOLOGY Lymphocytes 28.2 20.0 - 40.0 06/19/2016 [facility] HEMATOLOGY Segs 61.1 45.0 - 75.0 06/19/2016 [facility] HEMATOLOGY Hgb 11.9 12.0 - 16.0 06/19/2016 [facility] HEMATOLOGY RBC 4.71 4.20 - 5.40 06/19/2016 [facility] HEMATOLOGY WBC 11.9 3.7 - 10.4 06/19/2016 [facility] HEMATOLOGY MCH 25.4 27.0 - 31.0 06/19/2016 [facility] HEMATOLOGY MCV 79.6 80.0 - 98.0 06/19/2016 [facility] HEMATOLOGY Hct 37.4 36.0 - 48.0 06/19/2016 [facility] MCHC 31.9 32.0 - 36.0 06/19/2016 [facility] HEMATOLOGY RDW 14.7 11.5 - 14.5 06/19/2016 [facility] HEMATOLOGY Platelet 326 133 - 450 06/19/2016 [facility] HEMATOLOGY MPV 9.0 7.4 - 10.4 06/19/2016 [facility] URINE AND STOOL UA Bili Negative *NA* (06/18/16 8:33 PM) Negative 06/19/2016 [facility] URINE AND STOOL UA Leuk Est Negative (06/18/16 8:33 PM) Negative 06/19/2016 [facility] URINE AND STOOL UA Blood Small *ABN* (06/18/16 8:33 PM) Negative 06/19/2016 [facility] URINE AND STOOL UA Nitrite Negative (06/18/16 8:33 PM) Negative 06/19/2016 [facility] URINE AND STOOL UA Urobilinogen <=1.0 mg/dL 0.1 - 1.0 06/19/[address] [facility] [address] URINE AND STOOL UA WBC 1 0 - 5 06/19/2016 [facility] URINE AND STOOL UA RBC 1 0 - 2 06/19/2016 [facility] URINE AND STOOL UA Color Ltyellow 06/19/2016 [facility] URINE AND STOOL UA Sq Epi Occasional /LPF Few /LPF 06/19/2016 [facility] URINE AND STOOL UA Spec Grav 1.026 <=1.030 06/19/2016 [facility] URINE AND STOOL UA pH 6.0 5.0 - 8.0 06/19/2016 [facility] URINE AND STOOL UA Turbidity Clear (06/18/16 8:33 PM) Clear 06/19/2016 [facility] URINE AND STOOL UA Ketones Negative mg/dL Negative mg/dL 06/19/[address] [facility] [address] URINE AND STOOL UA Glucose 500 mg/dL Negative mg/dL 06/19/2016 [facility] URINE AND STOOL UA Protein Negative mg/dL Negative mg/dL 06/19/[address] [facility] [address] URINE AND STOOL UA Urobilinogen <=1.0 mg/dL 0.1 - 1.0 05/25/[address] [facility] [address] URINE AND STOOL UA Color Ltyellow 05/25/2016 [facility] URINE AND STOOL UA Bacteria Occasional /HPF None Seen /HPF 05/25/[address] [facility] URINE AND STOOL UA RBC 2 0 - 2 05/25/2016 [facility] URINE AND STOOL UA WBC 13 0 - 5 05/25/2016 [facility] URINE AND STOOL UA Protein Negative mg/dL Negative mg/dL 05/25/[address] [facility] [address] URINE AND STOOL UA Ketones Trace mg/dL Negative mg/dL 05/25/[address] [facility] [address] URINE AND STOOL UA Bili Negative *NA* (05/25/16 8:38 AM) Negative 05/25/2016 [facility] URINE AND STOOL UA Glucose 150 mg/dL Negative mg/dL 05/25/2016 [facility] URINE AND STOOL UA Blood Negative (05/25/16 8:38 AM) Negative 05/25/2016 [facility] URINE AND STOOL UA Nitrite Negative (05/25/16 8:38 AM) Negative 05/25/2016 [facility] URINE AND STOOL UA Leuk Est Large *ABN* (05/25/16 8:38 AM) Negative 05/25/2016 [facility] URINE AND STOOL UA Sq Epi Moderate /LPF Few /LPF 05/25/2016 [facility] URINE AND STOOL UA pH 6.0 5.0 - 8.0 05/25/2016 [facility] URINE AND STOOL UA Spec Grav 1.014 <=1.030 05/25/2016 [facility] URINE AND STOOL UA Turbidity Clear (05/25/16 8:38 AM) Clear 05/25/2016 [facility] URINE CHEM U Preg Negat jesus (05/25/16 8:38 AM) Negative 05/25/2016 [facility] CHEM PANEL A/G Ratio 0.9 0.7 - 1.6 05/25/2016 [facility] CHEM PANEL Globulin 3.8 2.7 - 4.2 05/25/2016 [facility] CHEM PANEL B/C Ratio 16 6 - 25 05/25/2016 [facility] CHEM PANEL AGAP 11.1 10.0 - 20.0 05/25/2016 [facility] CHEM PANEL eGFR 87 05/25/2016 Result [...] Glucose Lvl 225 70 - 99 05/25/2016 [facility] CHEM PANEL Total Protein 7.1 6.4 - 8.4 05/25/2016 [facility] CHEM PANEL CO2 25 24 - 32 05/25/2016 [facility] CHEM PANEL Calcium Lvl 8.5 8.5 - 10.5 05/25/2016 [facility] CHEM PANEL Chloride Lvl 102 95 - 109 05/25/2016 [facility] CHEM PANEL Potassium Lvl 4.1 3.5 - 5.1 05/25/2016 [facility] CHEM PANEL Sodium Lvl 134 135 - 145 05/25/2016 [facility] CHEM PANEL Creatinine Lvl 0.89 0.50 - 1.40 05/25/2016 [facility] CHEM PANEL Alk Phos 85 39 - 136 05/25/2016 [facility] CHEM PANEL AST 14 0 - 37 05/25/2016 [facility] CHEM PANEL ALT 27 0 - 65 05/25/2016 [facility] CHEM PANEL Albumin Lvl 3.3 3.5 - 5.0 05/25/2016 [facility] CHEM PANEL Bili Total 0.2 0.2 - 1.3 05/25/2016 [facility] HEMATOLOGY Basophils # 0.1 0.0 - 0.2 05/25/2016 [facility] HEMATOLOGY Eosinophils # 0.3 0.0 - 0.5 05/25/2016 [facility] HEMATOLOGY Monocytes # 0.7 0.0 - 0.8 05/25/2016 [facility] HEMATOLOGY Lymphocytes # 3.1 1.0 - 5.5 05/25/2016 [facility] HEMATOLOGY Segs-Bands # 5.8 1.5 - 8.1 05/25/2016 [facility] HEMATOLOGY Eosinophils 3.2 0.0 - 4.0 05/25/2016 [facility] HEMATOLOGY Basophils 0.8 0.0 - 1.0 05/25/2016 [facility] HEMATOLOGY Lymphocytes 31.1 20.0 - 40.0 05/25/2016 [facility] HEMATOLOGY Monocytes 6.5 2.0 - 12.0 05/25/2016 [facility] HEMATOLOGY Segs 58.4 45.0 - 75.0 05/25/2016 [facility] HEMATOLOGY Platelet 296 133 - 450 05/25/2016 [facility] HEMATOLOGY MPV 9.0 7.4 - 10.4 05/25/2016 [facility] HEMATOLOGY RDW 14.5 11.5 - 14.5 05/25/2016 [facility] HEMATOLOGY MCHC 32.4 32.0 - 36.0 05/25/2016 [facility] HEMATOLOGY MCH 25.6 27.0 - 31.0 05/25/2016 [facility] HEMATOLOGY MCV 79.0 80.0 - 98.0 05/25/2016 [facility] HEMATOLOGY Hct 37.8 36.0 - 48.0 05/25/2016 [facility] HEMATOLOGY Hgb 12.3 12.0 - 16.0 05/25/2016 [facility] HEMATOLOGY RBC 4.79 4.20 - 5.40 05/25/2016 [facility] HEMATOLOGY WBC 10.0 3.7 - 10.4 05/25/2016 [facility] CARDIAC ENZYMES Total CK 65 12 - 191 04/20/2016 [facility] CHEM PANEL Bili Total 0.4 0.2 - 1.3 04/20/2016 [facility] CHEM PANEL eGFR 106 04/20/2016 Result [...] should be multiplied by the estimated BMI. [facility] CHEM PANEL Glucose Lvl 166 70 - 99 04/20/2016 [facility] CHEM PANEL Creatinine Lvl 0.75 0.50 - 1.40 04/20/2016 [facility] CHEM PANEL BUN 14 7 - 22 04/20/2016 [facility] CHEM PANEL Sodium Lvl 136 135 - 145 04/20/2016 [facility] CHEM PANEL CO2 25 24 - 32 04/20/2016 [facility] CHEM PANEL Chloride Lvl 102 95 - 109 04/20/2016 [facility] CHEM PANEL Potassium Lvl 3.7 3.5 [...] B/C Ratio 19 6 - 25 04/20/2016 [facility] CHEM PANEL AGAP 12.7 10.0 - 20.0 04/20/2016 [facility] HEMATOLOGY Monocytes # 0.7 0.0 - 0.8 04/20/2016 [facility] HEMATOLOGY Eosinophils # 0.3 0.0 - 0.5 04/20/2016 [facility] HEMATOLOGY Segs 58.6 45.0 - 75.0 04/20/2016 [facility] HEMATOLOGY Basophils 0.2 0.0 - 1.0 04/20/2016 [facility] HEMATOLOGY Lymphocytes 31.7 20.0 - 40.0 04/20/2016 [facility] HEMATOLOGY Lymphocytes # 3.4 1.0 - 5.5 04/20/2016 [facility] HEMATOLOGY Segs-Bands # 6.2 1.5 - 8.1 04/20/2016 [facility] HEMATOLOGY Eosinophils 2.9 0.0 - 4.0 04/20/2016 [facility] HEMATOLOGY Monocytes 6.6 2.0 - 12.0 04/20/2016 [facility] HEMATOLOGY RBC 4.64 4.20 - 5.40 04/20/2016 [facility] HEMATOLOGY Hgb 12.0 12.0 - 16.0 04/20/2016 [facility] HEMATOLOGY WBC 10.6 3.7 - 10.4 04/20/2016 [facility] HEMATOLOGY Hct 37.1 36.0 - 48.0 04/20/2016 [facility] HEMATOLOGY MCV 80.1 80.0 - 98.0 04/20/2016 [facility] HEMATOLOGY MCH 25.8 27.0 - 31.0 04/20/2016 [facility] HEMATOLOGY MCHC 32.2 32.0 - 36.0 04/20/2016 [facility] HEMATOLOGY RDW 14.8 11.5 - 14.5 04/20/2016 [facility] HEMATOLOGY Platelet 319 133 - 450 04/20/2016 [facility] HEMATOLOGY MPV 8.9 7.4 - 10.4 04/20/2016 [facility] URINE AND STOOL UA Color Ltyellow 04/20/2016 [facility] URINE AND STOOL UA Urobilinogen <=1.0 mg/dL 0.1 - 1.0 04/20/2016 [facility] URINE AND STOOL UA Sq Epi Occasional /LPF Few /LPF 04/20/2016 [facility] URINE AND STOOL UA Leuk Est Large *ABN* (04/20/16 2:43 AM) Negative 04/20/2016 [facility] URINE AND STOOL UA Bacteria Occasional /HPF None Seen /HPF 04/20/2016 [facility] URINE AND STOOL UA RBC 6 0 - 2 04/20/2016 [facility] URINE AND STOOL UA WBC 49 0 - 5 04/20/2016 [facility] URINE AND STOOL UA Glucose Negative mg/dL Negative mg/dL 04/20/2016 [facility] URINE AND STOOL UA Nitrite Negative (04/20/16 2:43 AM) Negative 04/20/2016 [facility] URINE AND STOOL UA Blood Small *ABN* (04/20/16 2:43 AM) Negative 04/20/2016 [facility] URINE AND STOOL UA Bili Negative *NA* (04/20/16 2:43 AM) Negative 04/20/2016 [facility] URINE AND STOOL UA Ketones Negative mg/dL Negative mg/dL 04/20/2016 [facility] URINE AND STOOL UA Spec Grav 1.009 <=1.030 04/20/2016 [facility] URINE AND STOOL UA Turbidity Clear (04/20/16 2:43 AM) Clear 04/20/2016 [facility] URINE AND STOOL UA pH 6.0 5.0 - 8.0 04/20/2016 [facility] URINE AND STOOL UA Protein Negative mg/dL Negative mg/dL 04/20/2016 [facility] URINE CHEM U Preg Negat jesus (04/20/16 2:43 AM) Negative 04/20/2016 [facility] CARDIAC ENZYMES Total CK 86 12 - 191 04/19/2016 [facility] CHEM PANEL BUN 14 7 - 22 04/19/2016 [facility] CHEM PANEL Glucose Lvl 186 70 [...] Sodium Lvl 136 135 - 145 04/19/2016 [facility] CHEM PANEL Creatinine Lvl 0.93 0.50 - 1.40 04/19/2016 [facility] CHEM PANEL ALT 37 0 - 65 04/19/2016 [facility] CHEM PANEL Alk Phos 83 39 - 136 04/19/2016 [facility] CHEM PANEL Bili Total 0.4 0.2 - 1.3 04/19/2016 [facility] CHEM PANEL AST 30 0 - 37 04/19/2016 [facility] CHEM PANEL eGFR 82 04/19/2016 Result [...] PANEL Globulin 4.2 2.7 - 4.2 04/19/2016 [facility] CHEM PANEL B/C Ratio 15 6 - 25 04/19/2016 [facility] CHEM PANEL A/G Ratio 0.9 0.7 - 1.6 04/19/2016 [facility] CHEM PANEL AGAP 11.5 10.0 - [...] gative *NA* (04/18/16 8:18 PM) Negative 04/19/2016 [facility] HEMATOLOGY Basophils 0.7 0.0 - 1.0 04/19/2016 [facility] HEMATOLOGY Segs 73.0 45.0 - 75.0 04/19/2016 [facility] HEMATOLOGY Eosinophils 1.3 0.0 - 4.0 04/19/2016 [facility] HEMATOLOGY Monocytes 4.6 2.0 - 12.0 04/19/2016 [facility] HEMATOLOGY Lymphocytes 20.4 20.0 - 40.0 04/19/2016 [facility] HEMATOLOGY Eosinophils # 0.2 0.0 - 0.5 04/19/2016 [facility] HEMATOLOGY Basophils # 0.1 0.0 - 0.2 04/19/2016 [facility] HEMATOLOGY Segs-Bands # 9.1 1.5 - 8.1 04/19/2016 [facility] HEMATOLOGY Monocytes # 0.6 0.0 - 0.8 04/19/2016 [facility] HEMATOLOGY Lymphocytes # 2.5 1.0 - 5.5 04/19/2016 [facility] HEMATOLOGY MCHC 32.6 32.0 - 36.0 04/19/2016 [facility] HEMATOLOGY RDW 14.9 11.5 - 14.5 04/19/2016 [facility] HEMATOLOGY Platelet 339 133 - 450 04/19/2016 [facility] HEMATOLOGY MPV 8.9 7.4 - 10.4 04/19/2016 [facility] HEMATOLOGY RBC 4.77 4.20 - 5.40 04/19/2016 [facility] HEMATOLOGY Hct 37.8 36.0 - 48.0 04/19/2016 [facility] HEMATOLOGY Hgb 12.3 12.0 - 16.0 04/19/2016 [facility] HEMATOLOGY MCV 79.3 80.0 - 98.0 04/19/2016 [facility] HEMATOLOGY MCH 25.8 27.0 - 31.0 04/19/2016 [facility] HEMATOLOGY WBC 12.4 3.7 - 10.4 04/19/2016 [facility] URINE AND STOOL UA Urobilinogen <=1.0 mg/dL 0.1 - 1.0 04/19/2016 [facility] URINE AND STOOL UA Color Colorless 04/19/2016 [facility] URINE AND STOOL UA WBC 2 0 - 5 04/19/2016 [facility] URINE AND STOOL UA RBC 1 0 - 2 04/19/2016 [facility] URINE AND STOOL UA pH 6.0 5.0 - 8.0 04/19/2016 [facility] URINE AND STOOL UA Spec Grav 1.003 <=1.030 04/19/2016 [facility] URINE AND STOOL UA Sq Epi Occasional /LPF Few /LPF 04/19/2016 [facility] URINE AND STOOL UA Nitrite Negative (04/18/16 8:18 PM) Negative 04/19/2016 [facility] URINE AND STOOL UA Turbidity Clear (04/18/16 8:18 PM) Clear 04/19/2016 [facility] URINE AND STOOL UA Bili Negative *NA* (04/18/16 8:18 PM) Negative 04/19/2016 [facility] URINE AND STOOL UA Glucose Negative mg/dL Negative mg/dL 04/19/2016 [facility] URINE AND STOOL UA Ketones Negative mg/dL Negative mg/dL 04/19/2016 [facility] URINE AND STOOL UA Blood Small *ABN* (04/18/16 8:18 PM) Negative 04/19/2016 [facility] URINE AND STOOL UA Protein Negative mg/dL Negative mg/dL 04/19/2016 [facility] URINE AND STOOL UA Leuk Est Trace *ABN* (04/18/16 8:18 PM) Negative 04/19/2016 [facility] CHEM PANEL Lipase Lvl 143 73 - 393 03/21/2016 [facility] CHEM PANEL B/C Ratio 14 6 - 25 03/21/2016 [facility] CHEM PANEL Globulin 4.4 2.0 - 4.0 03/21/2016 [facility] CHEM PANEL A/G Ratio 0.8 0.7 - 1.6 03/21/2016 [facility] CHEM PANEL AGAP 13.8 10.0 - 20.0 03/21/2016 [facility] CHEM PANEL eGFR 107 03/21/2016 Result [...] should be multiplied by the estimated BMI. [facility] CHEM PANEL Total Protein 8.0 6.4 - 8.4 03/21/2016 [facility] CHEM PANEL Albumin Lvl 3.6 3.5 - 5.0 03/21/2016 [facility] CHEM PANEL CO2 26 24 - 32 03/21/2016 [facility] CHEM PANEL Calcium Lvl 8.6 8.5 - 10.5 03/21/2016 [facility] CHEM PANEL Chloride Lvl 102 95 - 109 03/21/2016 [facility] CHEM PANEL Creatinine Lvl 0.74 0.50 - 1.40 03/21/2016 [facility] CHEM PANEL Sodium Lvl 138 135 - 145 03/21/2016 [facility] CHEM PANEL BUN 10 7 - 22 03/21/2016 [facility] CHEM PANEL Potassium Lvl 3.8 3.5 - 5.1 03/21/2016 [facility] CHEM PANEL Alk Phos 83 39 - 136 03/21/2016 [facility] CHEM PANEL Glucose Lvl 152 70 - 99 03/21/2016 [facility] CHEM PANEL AST 33 0 - 37 03/21/2016 [facility] CHEM PANEL Bili Total 0.4 0.2 - 1.3 03/21/2016 [facility] CHEM PANEL ALT 43 0 - 65 03/21/2016 [facility] HEMATOLOGY Basophils # 0.1 0.0 - 0.2 03/21/2016 [facility] HEMATOLOGY Eosinophils # 0.3 0.0 - 0.5 03/21/2016 [facility] HEMATOLOGY Monocytes # 0.5 0.0 - 0.8 03/21/2016 [facility] HEMATOLOGY Eosinophils 2.6 0.0 - 4.0 03/21/2016 [facility] HEMATOLOGY Monocytes 4.6 2.0 - 12.0 03/21/2016 [facility] HEMATOLOGY Lymphocytes # 2.8 1.0 - 5.5 03/21/2016 [facility] Segs-Bands # 6.3 1.5 - 8.1 03/21/2016 [facility] Basophils 0.5 0.0 - 1.0 03/21/2016 [facility] Lymphocytes 28.6 20.0 - 40.0 03/21/2016 [facility] Segs 63.7 45.0 - 75.0 03/21/2016 [facility] MPV 9.0 7.4 - 10.4 03/21/2016 [facility] Platelet 342 133 - 450 03/21/2016 [facility] Hgb 13.1 12.0 - 16.0 03/21/2016 [facility] RBC 5.07 4.20 - 5.40 03/21/2016 [facility] Hct 40.6 36.0 - 48.0 03/21/2016 [facility] MCH 25.8 27.0 - 31.0 03/21/2016 [facility] MCV 80.0 80.0 - 98.0 03/21/2016 [facility] RDW 15.2 11.5 - 14.5 03/21/2016 [facility] MCHC 32.3 32.0 - 36.0 03/21/2016 [facility] WBC 9.9 3.7 - 10.4 03/21/2016 [facility] URINE AND STOOL UA Urobilinogen <=1.0 mg/dL 0.1 - 1.0 03/21/2016 [facility] URINE AND STOOL UA Ketones Negative mg/dL Negative mg/dL 03/21/[address] [facility] URINE AND STOOL UA WBC 173 0 - 5 03/21/2016 [facility] URINE AND STOOL UA RBC 25 0 - 2 03/21/2016 [facility] URINE AND STOOL UA Sq Epi Many /LPF Few /LPF 03/21/2016 [facility] URINE AND STOOL UA Leuk Est Large *ABN* (03/21/16 4:54 PM) Negative 03/21/2016 [facility] URINE AND STOOL UA Nitrite Negative (03/21/16 4:54 PM) Negative 03/21/2016 [facility] URINE AND STOOL UA Blood Moderate *ABN* (03/21/16 4:54 PM) Negative 03/21/2016 [facility] URINE AND STOOL UA Mucus Few /LPF None Seen /LPF 03/21/2016 [facility] URINE AND STOOL UA Bili Negative *NA* (03/21/16 4:54 PM) Negative 03/21/2016 [facility] URINE AND STOOL UA Color Yellow *NA* (03/21/16 4:54 PM) Yellow 03/21/2016 [facility] URINE AND STOOL UA Glucose Negative mg/dL Negative mg/dL 03/21/2016 [facility] URINE AND STOOL UA Turbidity Marked *ABN* (03/21/16 4:54 PM) Clear 03/21/2016 [facility] URINE AND STOOL UA Spec Grav 1.024 <=1.030 03/21/2016 [facility] URINE AND STOOL UA pH 5.0 5.0 - 8.0 03/21/2016 [facility] URINE AND STOOL UA Protein 30 mg/dL Negative mg/dL 03/21/2016 [facility] URINE CHEM U Preg Negat jesus (03/21/16 4:54 PM) Negative 03/21/2016 [facility] CHEM PANEL AST 11 0 - 37 12/05/2015 [facility] CHEM PANEL CO2 27 24 - 32 12/05/2015 [facility] CHEM PANEL AGAP 9.8 10.0 - 20.0 12/05/2015 [facility] CHEM PANEL Calcium Lvl 7.7 8.5 - 10.5 12/05/2015 [facility] CHEM PANEL ALT 26 0 - 65 12/05/2015 [facility] CHEM PANEL A/G Ratio 0.9 0.7 - 1.6 12/05/2015 [facility] CHEM PANEL Albumin Lvl 2.9 3.5 - 5.0 12/05/2015 [facility] CHEM PANEL Globulin 3.1 2.0 - 4.0 12/05/2015 [facility] CHEM PANEL eGFR 116 12/05/2015 Result [...] should be multiplied by the estimated BMI. [facility] CHEM PANEL Alk Phos 57 39 - 136 12/05/2015 [facility] CHEM PANEL Bili Total 0.3 0.2 - 1.3 12/05/2015 [facility] CHEM PANEL B/C Ratio 16 6 - 25 12/05/2015 [facility] CHEM PANEL Total Protein 6.0 6.4 - 8.4 12/05/2015 [facility] CHEM PANEL Chloride Lvl 109 95 - 109 12/05/2015 [facility] CHEM PANEL Creatinine Lvl 0.69 0.50 - 1.40 12/05/2015 [facility] CHEM PANEL Potassium Lvl 3.8 3.5 - 5.1 12/05/2015 [facility] CHEM PANEL BUN 11 7 - 22 12/05/2015 [facility] CHEM PANEL Sodium Lvl 142 135 - 145 12/05/2015 [facility] CHEM PANEL Glucose Lvl 155 70 - 99 12/05/2015 [facility] HEMATOLOGY MPV 8.9 7.4 - 10.4 12/05/2015 [facility] HEMATOLOGY Platelet 285 133 - 450 12/05/2015 [facility] HEMATOLOGY MCHC 31.8 32.0 - 36.0 12/05/2015 [facility] HEMATOLOGY RDW 14.8 11.5 - 14.5 12/05/2015 [facility] HEMATOLOGY Hct 32.3 36.0 - 48.0 12/05/2015 [facility] HEMATOLOGY MCH 25.5 27.0 - 31.0 12/05/2015 [facility] HEMATOLOGY MCV 80.2 80.0 - 98.0 12/05/2015 [facility] WBC 11.4 3.7 - 10.4 12/05/2015 [facility] RBC 4.03 4.20 - 5.40 12/05/2015 [facility] Hgb 10.3 12.0 - 16.0 12/05/2015 [facility] Lymphocytes 31.4 20.0 - 40.0 12/05/2015 [facility] Monocytes # 0.7 0.0 - 0.8 12/05/2015 [facility] Lymphocytes # 3.6 1.0 - 5.5 12/05/2015 [facility] Segs-Bands # 6.9 1.5 - 8.1 12/05/2015 [facility] Basophils 0.5 0.0 - 1.0 12/05/2015 [facility] Monocytes 6.5 2.0 - 12.0 12/05/2015 [facility] Basophils # 0.1 0.0 - 0.2 12/05/2015 [facility] Eosinophils # 0.2 0.0 - 0.5 12/05/2015 [facility] Segs 60.0 45.0 - 75.0 12/05/2015 [facility] Eosinophils 1.6 0.0 - 4.0 12/05/2015 [facility] CHEM PANEL eGFR 119 12/04/2015 Result [...] should be multiplied by the estimated BMI. [facility] CHEM PANEL Total Protein 6.7 6.4 - 8.4 12/04/2015 [facility] CHEM PANEL AGAP 12.1 10.0 - 20.0 [...] PANEL AST 22 0 - 37 12/04/2015 [facility] CHEM PANEL ALT 35 0 - 65 12/04/2015 [facility] CHEM PANEL Glucose Lvl 163 70 - 99 12/04/2015 [facility] HEMATOLOGY MCH 25.4 27.0 - 31.0 12/04/2015 [facility] HEMATOLOGY MCV 79.7 80.0 - 98.0 12/04/2015 [facility] HEMATOLOGY MCHC 31.9 32.0 - 36.0 12/04/2015 [facility] HEMATOLOGY Hct 35.0 36.0 - 48.0 12/04/2015 [facility] HEMATOLOGY MPV 8.8 7.4 - 10.4 12/04/2015 [facility] HEMATOLOGY Hgb 11.1 12.0 - 16.0 12/04/2015 [facility] HEMATOLOGY Platelet 331 133 - 450 12/04/2015 [facility] HEMATOLOGY RDW 14.9 11.5 - 14.5 12/04/2015 [facility] HEMATOLOGY RBC 4.39 4.20 - 5.40 12/04/2015 [facility] HEMATOLOGY WBC 16.6 3.7 - 10.4 12/04/2015 [facility] HEMATOLOGY Eosinophils 0.2 0.0 - 4.0 12/04/2015 [facility] HEMATOLOGY Basophils 0.3 0.0 - 1.0 12/04/2015 [facility] HEMATOLOGY Segs-Bands # 13.8 1.5 - 8.1 12/04/2015 [facility] HEMATOLOGY Monocytes # 0.8 0.0 - 0.8 12/04/2015 [facility] HEMATOLOGY Lymphocytes # 1.9 1.0 - 5.5 12/04/2015 [facility] HEMATOLOGY Monocytes 4.8 2.0 - 12.0 12/04/2015 [facility] HEMATOLOGY Segs 83.5 45.0 - 75.0 12/04/2015 [facility] Lymphocytes 11.2 20.0 - 40.0 12/04/2015 [facility] ANEMIA STUDY Vitamin B12 Lvl 443 254 - 1320 12/04/2015 [facility] ANEMIA STUDY Iron 49 30 - 160 12/04/2015 [facility] ANEMIA STUDY % [place] Fe 13 12 - 57 12/04/2015 [facility] ANEMIA STUDY TIBC 382 228 - 428 12/04/2015 [facility] ANEMIA STUDY UIBC 333 110 - 370 12/04/2015 [facility] CHEM PANEL Magnesium Lvl 2.0 1.8 - 2.4 12/03/2015 [facility] CHEM PANEL Phosphorus 2.5 2.5 - 4.5 12/03/2015 [facility] ELECTROLYTES AGAP 11.6 10.0 - 20.0 12/03/2015 [facility] ELECTROLYTES Globulin 3.7 2.0 - 4.0 12/03/2015 [facility] ELECTROLYTES B/C Ratio 16 6 - 25 12/03/2015 [facility] ELECTROLYTES A/G Ratio 0.9 0.7 - 1.6 12/03/2015 [facility] ELECTROLYTES eGFR 121 12/03/2015 Result Comment: [...] should be multiplied by the estimated BMI. [facility] ELECTROLYTES Bili Total 0.4 0.2 - 1.3 12/03/2015 [facility] ELECTROLYTES Alk Phos 72 39 - 136 12/03/2015 [facility] ELECTROLYTES CO2 26 24 - 32 12/03/2015 [facility] ELECTROLYTES Chloride Lvl 105 95 - 109 12/03/2015 [facility] ELECTROLYTES ALT 30 0 - 65 12/03/2015 [facility] ELECTROLYTES AST 13 0 - 37 12/03/2015 [facility] ELECTROLYTES Albumin Lvl 3.3 3.5 - 5.0 12/03/2015 [facility] ELECTROLYTES Total Protein 7.0 6.4 - 8.4 12/03/2015 [facility] ELECTROLYTES Calcium Lvl 8.0 8.5 - 10.5 12/03/2015 [facility] ELECTROLYTES BUN 10 7 - 22 12/03/2015 [facility] ELECTROLYTES Glucose Lvl 153 70 - 99 12/03/2015 [facility] ELECTROLYTES Creatinine Lvl 0.6 2 0.50 - 1.40 12/03/2015 [facility] ELECTROLYTES Potassium Lvl 3.6 3.5 - 5.1 12/03/2015 [facility] ELECTROLYTES Sodium Lvl 139 135 - 145 12/03/2015 [facility] HEMATOLOGY Lymphocytes # 3.1 1.0 - 5.5 12/03/2015 [facility] HEMATOLOGY Segs 67.0 45.0 - 75.0 12/03/2015 [facility] HEMATOLOGY Basophils 0.7 0.0 - 1.0 12/03/2015 [facility] HEMATOLOGY Segs-Bands # 8.4 1.5 - 8.1 12/03/2015 [facility] HEMATOLOGY Eosinophils 2.6 0.0 - 4.0 12/03/2015 [facility] HEMATOLOGY Monocytes 5.0 2.0 - 12.0 12/03/2015 [facility] HEMATOLOGY Lymphocytes 24.7 20.0 - 40.0 12/03/2015 [facility] HEMATOLOGY Eosinophils # 0.3 0.0 - 0.5 12/03/2015 [facility] HEMATOLOGY Basophils # 0.1 0.0 - 0.2 12/03/2015 [facility] HEMATOLOGY Monocytes # 0.6 0.0 - 0.8 12/03/2015 [facility] HEMATOLOGY RDW 14.9 11.5 - 14.5 12/03/2015 [facility] HEMATOLOGY Platelet 320 133 - 450 12/03/2015 [facility] HEMATOLOGY MPV 8.8 7.4 - 10.4 12/03/2015 [facility] HEMATOLOGY WBC 12.5 3.7 - 10.4 12/03/2015 [facility] HEMATOLOGY RBC 4.79 4.20 - 5.40 12/03/2015 [facility] HEMATOLOGY MCH 25.4 27.0 - 31.0 12/03/2015 [facility] HEMATOLOGY MCHC 31.7 32.0 - 36.0 12/03/2015 [facility] HEMATOLOGY MCV 80.2 80.0 - 98.0 12/03/2015 [facility] HEMATOLOGY Hgb 12.1 12.0 - 16.0 12/03/2015 [facility] HEMATOLOGY Hct 38.4 36.0 - 48.0 12/03/2015 [facility] CHEM PANEL Lipase Lvl 163 73 - 393 12/02/2015 [facility] HEMATOLOGY Eosinophils # 0.2 0.0 - 0.5 12/02/2015 [facility] HEMATOLOGY Basophils # 0.1 0.0 - 0.2 12/02/2015 [facility] URINE AND STOOL UA Color Ltyellow 12/02/2015 [facility] URINE AND STOOL UA Urobilinogen <=1.0 mg/dL 0.1 - 1.0 12/02/[address] [facility] [address] URINE AND STOOL UA Sq Epi Many /LPF Few /LPF 12/02/2015 [facility] URINE AND STOOL UA WBC 2 0 - 5 12/02/2015 [facility] URINE AND STOOL UA Leuk Est Trace *ABN* (12/02/15 3:35 PM) Negative 12/02/2015 [facility] URINE AND STOOL UA Blood Moderate *ABN* (12/02/15 3:35 PM) Negative 12/02/2015 [facility] URINE AND STOOL UA Nitrite Negative (12/02/15 3:35 PM) Negative 12/02/2015 [facility] URINE AND STOOL UA RBC 3 0 - 2 12/02/2015 [facility] URINE AND STOOL UA Mucus Few /LPF None Seen /LPF 12/02/2015 [facility] URINE AND STOOL UA Turbidity Slight *ABN* (12/02/15 3:35 PM) Clear 12/02/2015 [facility] URINE AND STOOL UA Ketones Negative mg/dL Negative mg/dL 12/02/[address] [facility] [address] URINE AND STOOL UA Bili Negative *NA* (12/02/15 3:35 PM) Negative 12/02/2015 [facility] URINE AND STOOL UA pH 5.0 5.0 - 8.0 12/02/2015 [facility] URINE AND STOOL UA Spec Grav 1.020 <=1.030 12/02/2015 [facility] URINE AND STOOL UA Glucose Negative mg/dL Negative mg/dL 12/02/2015 [facility] URINE AND STOOL UA Protein Negative mg/dL Negative mg/dL 12/02/2015 [facility] URINE CHEM U Preg Negat jesus (12/02/15 3:35 PM) Negative 12/02/2015 [facility] CHEM PANEL Lipase Lvl 213 73 - 393 11/10/2015 [facility] CHEM PANEL Amylase Lvl 25 25 - 115 11/10/2015 [facility] CHEM PANEL A/G Ratio 0.9 0.7 - 1.6 11/10/2015 [facility] CHEM PANEL Globulin 3.8 2.0 - 4.0 11/10/2015 [facility] CHEM PANEL B/C Ratio 13 6 - 25 11/10/2015 [facility] CHEM PANEL AGAP 10.0 10.0 - 20.0 11/10/2015 [facility] CHEM PANEL eGFR 60 11/10/2015 Result [...] should be multiplied by the estimated BMI. [facility] CHEM PANEL ALT 25 0 - 65 11/10/2015 [facility] CHEM PANEL Bili Total 0.1 0.2 - 1.3 11/10/2015 [facility] CHEM PANEL Alk Phos 83 39 - 136 11/10/2015 [facility] CHEM PANEL AST 10 0 - 37 11/10/2015 [facility] CHEM PANEL Sodium Lvl 139 135 - 145 11/10/2015 [facility] CHEM PANEL Glucose Lvl 202 70 - 99 11/10/2015 [facility] CHEM PANEL Creatinine Lvl 1.21 0.50 - 1.40 11/10/2015 [facility] CHEM PANEL BUN 16 7 - 22 11/10/2015 [facility] CHEM PANEL Potassium Lvl 4.0 3.5 - 5.1 11/10/2015 [facility] CHEM PANEL CO2 28 24 - 32 11/10/2015 [facility] CHEM PANEL Chloride Lvl 105 95 - 109 11/10/2015 [facility] CHEM PANEL Total Protein 7.1 6.4 - 8.4 11/10/2015 [facility] CHEM PANEL Calcium Lvl 8.2 8.5 - 10.5 11/10/2015 [facility] CHEM PANEL Albumin Lvl 3.3 3.5 - 5.0 11/10/2015 [facility] HEMATOLOGY RBC 4.60 4.20 - 5.40 11/10/2015 [facility] HEMATOLOGY WBC 12.6 3.7 - 10.4 11/10/2015 [facility] HEMATOLOGY RDW 14.7 11.5 - 14.5 11/10/2015 [facility] HEMATOLOGY MCH 25.3 27.0 - 31.0 11/10/2015 [facility] HEMATOLOGY MCV 79.7 80.0 - 98.0 11/10/2015 [facility] HEMATOLOGY Hct 36.7 36.0 - 48.0 11/10/2015 [facility] MCHC 31.8 32.0 - 36.0 11/10/2015 [facility] HEMATOLOGY Hgb 11.7 12.0 - 16.0 11/10/2015 [facility] HEMATOLOGY MPV 8.9 7.4 - 10.4 11/10/2015 [facility] HEMATOLOGY Platelet 304 133 - 450 11/10/2015 [facility] HEMATOLOGY Basophils 0.6 0.0 - 1.0 11/10/2015 [facility] HEMATOLOGY Segs-Bands # 7.9 1.5 - 8.1 11/10/2015 [facility] HEMATOLOGY Monocytes 5.9 2.0 - 12.0 11/10/2015 [facility] HEMATOLOGY Eosinophils 3.0 0.0 - 4.0 11/10/2015 [facility] HEMATOLOGY Eosinophils # 0.4 0.0 - 0.5 11/10/2015 [facility] HEMATOLOGY Monocytes # 0.7 0.0 - 0.8 11/10/2015 [facility] HEMATOLOGY Lymphocytes # 3.4 1.0 - 5.5 11/10/2015 [facility] HEMATOLOGY Basophils # 0.1 0.0 - 0.2 11/10/2015 [facility] HEMATOLOGY Segs 63.2 45.0 - 75.0 11/10/2015 [facility] HEMATOLOGY Lymphocytes 27.3 20.0 - 40.0 11/10/2015 [facility] URINE AND STOOL UA Urobilinogen <=1.0 mg/dL 0.1 - 1.0 11/10/[address] [facility] [address] URINE AND STOOL UA Color Ltyellow 11/10/2015 [facility] URINE AND STOOL UA Turbidity Slight *ABN* (11/09/15 11:08 PM) Clear 11/10/2015 [facility] URINE AND STOOL UA Spec Grav 1.023 <=1.030 11/10/2015 [facility] URINE AND STOOL UA WBC 49 0 - 5 11/10/2015 [facility] URINE AND STOOL UA Bacteria Occasional /HPF None Seen /HPF 11/10/[address] [facility] [address] URINE AND STOOL UA RBC 6 0 - 2 11/10/2015 [facility] URINE AND STOOL UA Sq Epi Moderate /LPF Few /LPF 11/10/2015 [facility] URINE AND STOOL UA Nitrite Negative (11/09/15 11:08 PM) Negative 11/10/2015 [facility] URINE AND STOOL UA Blood Negative (11/09/15 11:08 PM) Negative 11/10/2015 [facility] URINE AND STOOL UA Leuk Est Large *ABN* (11/09/15 11:08 PM) Negative 11/10/2015 [facility] URINE AND STOOL UA Protein 30 mg/dL Negative mg/dL 11/10/2015 [facility] URINE AND STOOL UA Glucose 50 mg/dL Negative mg/dL 11/10/2015 [facility] URINE AND STOOL UA Bili Negative *NA* (11/09/15 11:08 PM) Negative 11/10/2015 [facility] URINE AND STOOL UA Ketones Negative mg/dL Negative mg/dL 11/10/[address] [facility] [address] URINE AND STOOL UA pH 8.0 5.0 - 8.0 11/10/2015 [facility] URINE CHEM U Preg Negat jesus (11/09/15 11:08 PM) Negative 11/10/2015 [facility] IMMUNOLOGY CDC HIV 4th GEN Negat jesus (10/16/15 11:44 PM) Negative 10/17/2015 [facility]-Hep C Ab Negat jesus *NA* (10/16/15 11:44 [...] B/C Ratio 21 6 - 25 06/11/2015 [facility] CHEM PANEL Globulin 4.3 2.0 - 4.0 06/11/2015 [facility] HEMATOLOGY Eosinophils # 0.3 0.0 - 0.5 06/11/2015 [facility] HEMATOLOGY Basophils # 0.1 0.0 - 0.2 06/11/2015 [facility] HEMATOLOGY Lymphocytes # 3.5 1.0 - 5.5 06/11/2015 [facility] HEMATOLOGY Segs 61.7 45.0 - 75.0 06/11/2015 [facility] HEMATOLOGY Lymphocytes 28.9 20.0 - 40.0 06/11/2015 [facility] HEMATOLOGY Monocytes # 0.7 0.0 - 0.8 06/11/2015 [facility] HEMATOLOGY Segs-Bands # 7.6 1.5 - 8.1 06/11/2015 [facility] HEMATOLOGY Basophils 1.0 0.0 - 1.0 06/11/2015 [facility] HEMATOLOGY Eosinophils 2.6 0.0 - 4.0 06/11/2015 [facility] Monocytes 5.8 2.0 - 12.0 06/11/2015 [facility] MCH 26.5 27.0 - 31.0 06/11/2015 [facility] MCHC 32.3 32.0 - 36.0 06/11/2015 [facility] RDW 13.8 11.5 - 14.5 06/11/2015 [facility] HEMATOLOGY WBC 12.3 3.7 - 10.4 06/11/2015 [facility] HEMATOLOGY MCV 82.2 80.0 - 98.0 06/11/2015 [facility] RBC 4.50 4.20 - 5.40 06/11/2015 [facility] Hgb 11.9 12.0 - 16.0 06/11/2015 [facility] Hct 37.0 36.0 - 48.0 06/11/2015 [facility] HEMATOLOGY MPV 9.8 7.4 - 10.4 06/11/2015 [facility] HEMATOLOGY Platelet 243 133 - 450 06/11/2015 [facility] URINE AND STOOL UA Color [place] 06/11/2015 [facility] URINE AND STOOL UA Urobilinogen <=1.0 mg/dL 0.1 - 1.0 06/11/2015 [facility] URINE AND STOOL UA Mucus Few /LPF None Seen /LPF 06/11/2015 [facility] URINE AND STOOL UA Turbidity Slight *ABN* (06/10/15 10:39 PM) Clear 06/11/2015 [facility] URINE AND STOOL UA Protein Negative mg/dL Negative mg/dL 06/11/2015 [facility] URINE AND STOOL UA Ketones Negative mg/dL Negative mg/dL 06/11/2015 [facility] URINE AND STOOL UA Glucose Negative mg/dL Negative mg/dL 06/11/2015 [facility] URINE AND STOOL UA Bili Negative *NA* (06/10/15 10:39 PM) Negative 06/11/2015 [facility] URINE AND STOOL UA Blood Small *ABN* (06/10/15 10:39 PM) Negative 06/11/2015 [facility] URINE AND STOOL UA Leuk Est Small *ABN* (06/10/15 10:39 PM) Negative 06/11/2015 [facility] URINE AND STOOL UA Nitrite Negative (06/10/15 10:39 PM) Negative 06/11/2015 [facility] URINE AND STOOL UA RBC 4 0 - 2 06/11/2015 [facility] URINE AND STOOL UA WBC 4 0 - 5 06/11/2015 [facility] URINE AND STOOL UA Bacteria Occasional /HPF None Seen /HPF 06/11/2015 [facility] URINE AND STOOL UA Sq Epi Many /LPF Few /LPF 06/11/2015 [facility] URINE AND STOOL UA pH 6.0 5.0 - 8.0 06/11/2015 [facility] URINE AND STOOL UA Spec Grav 1.023 <=1.030 06/11/2015 [facility] URINE CHEM U Preg Negat jesus (06/10/15 10:39 PM) Negative 06/11/2015 [facility] CARDIAC ENZYMES Total CK 66 12 - 191 04/21/2015 [facility] CARDIAC ENZYMES BNP 36 <=100 pg/mL 04/21/2015 [facility] CARDIAC ENZYMES Troponin-I <0.02 0.00 - 0.40 04/21/2015 [facility] CHEM PANEL Lipase Lvl 152 73 - 393 04/21/2015 [facility] CHEM PANEL Amylase Lvl 19 25 - 115 04/21/2015 [facility] CHEM PANEL eGFR 99 04/21/2015 Result [...] Calcium Lvl 9.0 8.5 - 10.5 04/21/2015 [facility] CHEM PANEL AST 35 0 - 37 04/21/2015 [facility] CHEM PANEL CO2 22 24 - 32 04/21/2015 [facility] CHEM PANEL BUN 11 7 - 22 04/21/2015 [facility] CHEM PANEL Total Protein 7.8 6.4 - 8.4 04/21/2015 [facility] CHEM PANEL Creatinine Lvl 0.8 0.5 - 1.4 04/21/2015 [facility] CHEM PANEL Alk Phos 82 39 - 136 04/21/2015 [facility] CHEM PANEL ALT 40 0 - 65 04/21/2015 [facility] CHEM PANEL Albumin Lvl 3.5 3.5 - 5.0 04/21/2015 [facility] CHEM PANEL Bili Total 0.5 0.2 - 1.3 04/21/2015 [facility] CHEM PANEL Glucose Lvl 131 70 - 99 04/21/2015 [facility] CHEM PANEL Chloride Lvl 106 95 - 109 04/21/2015 [facility] CHEM PANEL Potassium Lvl 3.6 3.5 - 5.1 04/21/2015 [facility] CHEM PANEL Sodium Lvl 137 135 - 145 04/21/2015 [facility] CHEM PANEL B/C Ratio 14 6 - 25 04/21/2015 [facility] CHEM PANEL AGAP 12.6 10.0 - 20.0 04/21/2015 [facility] CHEM PANEL A/G Ratio 0.8 0.7 - 1.6 04/21/2015 [facility] CHEM PANEL Globulin 4.3 2.0 - 4.0 04/21/2015 [facility] HEMATOLOGY INR 1.03 0.85 - 1.17 04/21/2015 [facility] HEMATOLOGY PTT 30.7 22.9 - 35.8 04/21/2015 [facility] HEMATOLOGY PT 13.5 12.0 - 14.7 04/21/2015 [facility] HEMATOLOGY Hct 38.9 36.0 - 48.0 04/21/2015 [facility] Hgb 13.0 12.0 - 16.0 04/21/2015 [facility] HEMATOLOGY RBC 4.71 4.20 - 5.40 04/21/2015 [facility] WBC 9.4 3.7 - 10.4 04/21/2015 [facility] MCV 82.7 80.0 - 98.0 04/21/2015 [facility] HEMATOLOGY Platelet 294 133 - 450 04/21/2015 [facility] RDW 14.4 11.5 - 14.5 04/21/2015 [facility] MCHC 33.5 32.0 - 36.0 04/21/2015 [facility] MCH 27.7 27.0 - 31.0 04/21/2015 [facility] MPV 9.1 7.4 - 10.4 04/21/2015 [facility] Segs-Bands # 6.1 1.5 - 8.1 04/21/2015 [facility] HEMATOLOGY Basophils 1.0 0.0 - 1.0 04/21/2015 [facility] HEMATOLOGY Eosinophils # 0.2 0.0 - 0.5 04/21/2015 [facility] HEMATOLOGY Monocytes # 0.5 0.0 - 0.8 04/21/2015 [facility] Lymphocytes # 2.5 1.0 - 5.5 04/21/2015 [facility] HEMATOLOGY Eosinophils 1.8 0.0 - 4.0 04/21/2015 [facility] Monocytes 5.0 2.0 - 12.0 04/21/2015 [facility] Basophils # 0.1 0.0 - 0.2 04/21/2015 [facility] Lymphocytes 27.0 20.0 - 40.0 04/21/2015 [facility] Segs 65.2 45.0 - 75.0 04/21/2015 [facility] URINE AND STOOL UA Ketones Negative mg/dL Negative mg/dL 04/21/2015 [facility] URINE AND STOOL UA Nitrite Negative (04/21/15 2:20 PM) Negative 04/21/2015 [facility] URINE AND STOOL UA Glucose Negative mg/dL Negative mg/dL 04/21/2015 [facility] URINE AND STOOL UA Blood Large *ABN* (04/21/15 2:20 PM) Negative 04/21/2015 [facility] URINE AND STOOL UA Bili Negative *NA* (04/21/15 2:20 PM) Negative 04/21/2015 [facility] URINE AND STOOL UA Protein Negative mg/dL Negative mg/dL 04/21/2015 [facility] URINE AND STOOL UA Spec Grav 1.015 <=1.030 04/21/2015 [facility] URINE AND STOOL UA pH 5.0 5.0 - 8.0 04/21/2015 [facility] URINE AND STOOL UA Turbidity Slight *ABN* (04/21/15 2:20 PM) Clear 04/21/2015 [facility] URINE AND STOOL UA Urobilinogen <=1.0 mg/dL 0.1 - 1.0 04/21/2015 [facility] URINE AND STOOL UA Color Ltyellow 04/21/2015 [facility] URINE AND STOOL UA Bacteria Occasional /HPF None Seen /HPF 04/21/2015 [facility] URINE AND STOOL UA RBC 76 0 - 2 04/21/2015 [facility] URINE AND STOOL UA WBC 11 0 - 5 04/21/2015 [facility] URINE AND STOOL UA Sq Epi Few /LPF Few /LPF 04/21/2015 [facility] URINE AND STOOL UA Leuk Est Large *ABN* (04/21/15 2:20 PM) Negative 04/21/2015 [facility] URINE CHEM U Preg Negat jesus (04/21/15 2:20 PM) Negative 04/21/2015 [facility] MOLECULAR DIAGNOSTIC N gonorrhea by Amp Det (APTIMA) Negative *NA* (04/19/15 12:25 AM) Negative 04/19/2015 [facility] MOLECULAR DIAGNOSTIC Source APTIMA Endocervix *NA* (04/19/15 12:25 AM) 04/19/2015 [facility] MOLECULAR DIAGNOSTIC C trachomatis b y Amp Det (APTIMA) Negative *NA* (04/19/15 12:25 AM) Negative 04/19/2015 [facility] MOLECULAR DIAGNOSTIC Source APTIMA Endocervix *NA* (04/19/15 12:25 AM) 04/19/2015 [facility] CHEM PANEL eGFR 99 04/19/2015 Result Comment: [...] Potassium Lvl 3.5 3.5 - 5.1 04/19/2015 [facility] CHEM PANEL Sodium Lvl 137 135 - 145 04/19/2015 [facility] CHEM PANEL Creatinine Lvl 0.8 0.5 - 1.4 04/19/2015 [facility] CHEM PANEL Calcium Lvl 8.0 8.5 - 10.5 04/19/2015 [facility] CHEM PANEL Chloride Lvl 105 95 - 109 04/19/2015 [facility] CHEM PANEL ALT 33 0 - 65 04/19/2015 [facility] CHEM PANEL BUN 18 7 - 22 04/19/2015 [facility] CHEM PANEL CO2 24 24 - 32 04/19/2015 [facility] CHEM PANEL AST 24 0 - 37 04/19/2015 [facility] CHEM PANEL Bili Total 0.3 0.2 - 1.3 04/19/2015 [facility] CHEM PANEL Alk Phos 87 39 - 136 04/19/2015 [facility] CHEM PANEL Total Protein 7.2 6.4 - 8.4 04/19/2015 [facility] CHEM PANEL Albumin Lvl 3.3 3.5 - 5.0 04/19/2015 [facility] CHEM PANEL Glucose Lvl 163 70 - 99 04/19/2015 [facility] CHEM PANEL Globulin 3.9 2.0 - 4.0 04/19/2015 [facility] CHEM PANEL A/G Ratio 0.8 0.7 - 1.6 04/19/2015 [facility] CHEM PANEL AGAP 11.5 10.0 - 20.0 04/19/2015 [facility] CHEM PANEL B/C Ratio 22 6 - 25 04/19/2015 [facility] CHEM PANEL Amylase Lvl 21 25 - 115 04/19/2015 [facility] CHEM PANEL Lipase Lvl 201 73 - 393 04/19/2015 [facility] HEMATOLOGY Eosinophils # 0.2 0.0 - 0.5 04/19/2015 [facility] HEMATOLOGY Segs-Bands # 7.0 1.5 - 8.1 04/19/2015 [facility] HEMATOLOGY Eosinophils 1.9 0.0 - 4.0 04/19/2015 [facility] HEMATOLOGY Basophils 0.5 0.0 - 1.0 04/19/2015 [facility] HEMATOLOGY Basophils # 0.1 0.0 - 0.2 04/19/2015 [facility] HEMATOLOGY Monocytes 5.7 2.0 - 12.0 04/19/2015 [facility] HEMATOLOGY Lymphocytes # 3.4 1.0 - 5.5 04/19/2015 [facility] HEMATOLOGY Monocytes # 0.6 0.0 - 0.8 04/19/2015 [facility] HEMATOLOGY Segs 61.8 45.0 - 75.0 04/19/2015 [facility] HEMATOLOGY Lymphocytes 30.1 20.0 - 40.0 04/19/2015 [facility] HEMATOLOGY WBC 11.4 3.7 - 10.4 04/19/2015 [facility] HEMATOLOGY RBC 4.40 4.20 - 5.40 04/19/2015 [facility] HEMATOLOGY RDW 13.9 11.5 - 14.5 04/19/2015 [facility] HEMATOLOGY Platelet 290 133 - 450 04/19/2015 [facility] HEMATOLOGY MPV 9.0 7.4 - 10.4 04/19/2015 [facility] HEMATOLOGY Hgb 12.1 12.0 - 16.0 04/19/2015 [facility] Hct 36.7 36.0 - 48.0 04/19/2015 [facility] HEMATOLOGY MCV 83.4 80.0 - 98.0 04/19/2015 [facility] MCH 27.5 27.0 - 31.0 04/19/2015 [facility] MCHC 33.0 32.0 - 36.0 04/19/2015 [facility] URINE AND STOOL UA Turbidity Marked *ABN* (04/18/15 11:16 PM) Clear 04/19/2015 [facility] URINE AND STOOL UA Color Yellow *NA* (04/18/15 11:16 PM) Yellow 04/19/2015 [facility] URINE AND STOOL UA Bili Negative *NA* (04/18/15 11:16 PM) Negative 04/19/2015 [facility] URINE AND STOOL UA Ketones Negative mg/dL Negative mg/dL 04/19/2015 [facility] URINE AND STOOL UA Glucose Negative mg/dL Negative mg/dL 04/19/[address] [facility] URINE AND STOOL UA Protein Negative mg/dL Negative mg/dL 04/19/2015 [facility] URINE AND STOOL UA pH 6.0 5.0 - 8.0 04/19/2015 [facility] URINE AND STOOL UA Spec Grav 1.024 <=1.030 04/19/2015 [facility] URINE AND STOOL UA Sq Epi Many /LPF Few /LPF 04/19/2015 [facility] URINE AND STOOL UA [place] Yeast Occasional /HPF None Seen /HPF 04/19/[address] [facility] [address] URINE AND STOOL UA Bacteria Occasional /HPF None Seen /HPF 04/19/2015 [facility] URINE AND STOOL UA RBC 23 0 - 2 04/19/2015 [facility] URINE AND STOOL UA Hyal Cast 1 0 - 2 04/19/2015 [facility] URINE AND STOOL UA WBC 40 0 - 5 04/19/2015 [facility] URINE AND STOOL UA Leuk Est Large *ABN* (04/18/15 11:16 PM) Negative 04/19/2015 [facility] URINE AND STOOL UA Urobilinogen 2.0 0.1 - 1.0 04/19/2015 [facility] URINE AND STOOL UA Nitrite Negative (04/18/15 11:16 PM) Negative 04/19/2015 [facility] URINE AND STOOL UA Blood Small *ABN* (04/18/15 11:16 PM) Negative 04/19/2015 [facility] URINE CHEM U Preg Negat jesus (04/18/15 11:16 PM) Negative 04/19/2015 [facility] HEMATOLOGY Basophils 1.1 0.0 - 1.0 03/10/2015 [facility] HEMATOLOGY Monocytes 5.4 2.0 - 12.0 03/10/2015 [facility] HEMATOLOGY Lymphocytes 26.4 20.0 - 40.0 03/10/2015 [facility] HEMATOLOGY Segs 65.0 45.0 - 75.0 03/10/2015 [facility] HEMATOLOGY Eosinophils 2.1 0.0 - 4.0 03/10/2015 [facility] HEMATOLOGY Lymphocytes # 3.2 1.0 - 5.5 03/10/2015 [facility] HEMATOLOGY Segs-Bands # 8.0 1.5 - 8.1 03/10/2015 [facility] HEMATOLOGY Eosinophils # 0.3 0.0 - 0.5 03/10/2015 [facility] HEMATOLOGY Monocytes # 0.7 0.0 - 0.8 03/10/2015 [facility] HEMATOLOGY Basophils # 0.1 0.0 - 0.2 03/10/2015 [facility] HEMATOLOGY MCV 83.5 80.0 - 98.0 03/10/2015 [facility] HEMATOLOGY Hct 35.6 36.0 - 48.0 03/10/2015 [facility] HEMATOLOGY MCH 27.5 27.0 - 31.0 03/10/2015 [facility] RDW 14.7 11.5 - 14.5 03/10/2015 [facility] MCHC 32.9 32.0 - 36.0 03/10/2015 [facility] WBC 12.2 3.7 - 10.4 03/10/2015 [facility] Hgb 11.7 12.0 - 16.0 03/10/2015 [facility] RBC 4.26 4.20 - 5.40 03/10/2015 [facility] Platelet 309 133 - 450 03/10/2015 [facility] MPV 8.8 7.4 - 10.4 03/10/2015 [facility] MOLECULAR DIAGNOSTIC Source APTIMA Urine *NA* (03/09/15 5:30 PM) 03/09/2015 [facility] MOLECULAR DIAGNOSTIC N gonorrhea by Amp Det (APTIMA) Negative 3 *NA* (03/09/15 5:30 PM) Negative 03/09/2015 <sup>3</sup>Interpretive Data: The APTIMA assay is a target amplification nucleic acid probe test utilizing target capture for the qualitative detection and differentiation of ribosomal RNA from Neisseria gonorrhoeae to aid in the diagnosis of disease from symptomatic and asymptomatic individuals using the [employer] System.
This assay utilizes FDA cleared IVD reagents. Performance characteristics have been verified by the Molecular Diagnostic Laboratory within [facility]. The Molecular Diagnostic Laboratory is authorized under the Clinical Laboratory Improvement Amendments of 1988 (CLIA-88) to perform high complexity testing. [facility] URINE AND STOOL UA Urobilinogen <=1.0 mg/dL 0.1 - 1.0 03/09/2015 [facility] URINE AND STOOL UA WBC 3 0 - 5 03/09/2015 [facility] URINE AND STOOL UA RBC 11 0 - 2 03/09/2015 [facility] URINE AND STOOL UA Sq Epi Moderate /LPF Few /LPF 03/09/2015 [facility] URINE AND STOOL UA pH 6.0 5.0 - 8.0 03/09/2015 [facility] URINE AND STOOL UA Protein Negative mg/dL Negative mg/dL 03/09/2015 [facility] URINE AND STOOL UA Glucose 150 mg/dL Negative mg/dL 03/09/2015 [facility] URINE AND STOOL UA Leuk Est Moderate *ABN* (03/09/15 5:30 PM) Negative 03/09/2015 [facility] URINE AND STOOL UA Nitrite Negative (03/09/15 5:30 PM) Negative 03/09/2015 [facility] URINE AND STOOL UA Color Yellow *NA* (03/09/15 5:30 PM) Yellow 03/09/2015 [facility] URINE AND STOOL UA Turbidity Clear (03/09/15 5:30 PM) Clear 03/09/2015 [facility] URINE AND STOOL UA Spec Grav 1.025 <=1.030 03/09/2015 [facility] URINE AND STOOL UA Mucus Few /LPF None Seen /LPF 03/09/2015 [facility] URINE AND STOOL UA Bacteria Occasional /HPF None Seen /HPF 03/09/2015 [facility] URINE AND STOOL UA Blood Small *ABN* (03/09/15 5:30 PM) Negative 03/09/2015 [facility] URINE AND STOOL UA Bili Negative *NA* (03/09/15 5:30 PM) Negative 03/09/2015 [facility] URINE AND STOOL UA Ketones Trace mg/dL Negative mg/dL 03/09/2015 [facility] URINE CHEM U Preg Negat jesus (03/09/15 5:30 PM) Negative 03/09/2015 [facility] CHEM PANEL eGFR 99 03/09/2015 <sup>1</sup>Result [...] should be multiplied by the estimated BMI. [facility] CHEM PANEL AGAP 9.0 10.0 - 20.0 03/09/2015 [facility] CHEM PANEL Calcium Lvl 8.4 8.5 - 10.5 03/09/2015 [facility] CHEM PANEL CO2 27 24 - 32 03/09/2015 [facility] CHEM PANEL Chloride Lvl 105 95 - 109 03/09/2015 [facility] CHEM PANEL BUN 14 7 - 22 03/09/2015 [facility] CHEM PANEL Creatinine Lvl 0.8 0.5 - 1.4 03/09/2015 [facility] CHEM PANEL Potassium Lvl 4.0 3.5 - 5.1 03/09/2015 [facility] CHEM PANEL Sodium Lvl 137 135 - 145 03/09/2015 [facility] CHEM PANEL Glucose Lvl 152 70 - 99 03/09/2015 <sup>2</sup>Interpretive Data: Adult ref erence range values reflect the clinical guidelines
of the [employer]. [facility] CHEM PANEL Magnesium Lvl 2.0 1.8 - 2.4 03/09/2015 [facility] URINE AND STOOL UA Color Ltyellow 11/04/2014 [facility] URINE AND STOOL UA Urobilinogen <=1.0 mg/dL 0.1 - 1.0 11/04/2014 [facility] URINE AND STOOL UA Leuk Est Trace *ABN* (11/04/14 9:24 AM) Negative 11/04/2014 [facility] URINE AND STOOL UA WBC 4 0 - 5 11/04/2014 [facility] URINE AND STOOL UA RBC 1 0 - 2 11/04/2014 [facility] URINE AND STOOL UA Sq Epi Few /LPF Few /LPF 11/04/2014 [facility] URINE AND STOOL UA Ketones Negative mg/dL Negative mg/dL 11/04/2014 [facility] URINE AND STOOL UA Bili Negative *NA* (11/04/14 9:24 AM) Negative 11/04/2014 [facility] URINE AND STOOL UA Glucose Negative mg/dL Negative mg/dL 11/04/2014 [facility] URINE AND STOOL UA Blood Small *ABN* (11/04/14 9:24 AM) Negative 11/04/2014 [facility] URINE AND STOOL UA Nitrite Negative (11/04/14 9:24 AM) Negative 11/04/2014 [facility] URINE AND STOOL UA Turbidity Clear (11/04/14 9:24 AM) Clear 11/04/2014 [facility] URINE AND STOOL UA Protein Negative mg/dL Negative mg/dL 11/04/2014 [facility] URINE AND STOOL UA Spec Grav 1.014 <=1.030 11/04/2014 [facility] URINE AND STOOL UA pH 5.0 5.0 - 8.0 11/04/2014 [facility] URINE CHEM U Preg Negat jesus (11/04/14 9:24 AM) Negative 11/04/2014 [facility] CHEM PANEL Lipase Lvl 163 73 - 393 11/04/2014 [facility] CHEM PANEL eGFR 117 11/04/2014 <sup>1</sup>Result [...] should be multiplied by the estimated BMI. [facility] CHEM PANEL BUN 13 7 - 22 11/04/2014 [facility] CHEM PANEL CO2 29 24 - 32 11/04/2014 [facility] CHEM PANEL ALT 45 0 - 65 11/04/2014 [facility] CHEM PANEL Creatinine Lvl 0.7 0.5 - 1.4 11/04/2014 [facility] CHEM PANEL Total Protein 6.6 6.4 - 8.4 11/04/2014 [facility] CHEM PANEL Albumin Lvl 3.0 3.5 - 5.0 11/04/2014 [facility] CHEM PANEL Bili Total 0.3 0.2 - 1.3 11/04/2014 [facility] CHEM PANEL Alk Phos 74 39 - 136 11/04/2014 [facility] CHEM PANEL AST 21 0 - 37 11/04/2014 [facility] CHEM PANEL Glucose Lvl 142 70 - 99 11/04/2014 <sup>2</sup>Interpretive Data: Adult ref erence range values reflect the clinical guidelines
of the [employer]. [facility] CHEM PANEL Sodium Lvl 138 135 - 145 11/04/2014 [facility] CHEM PANEL Potassium Lvl 4.3 3.5 - 5.1 11/04/2014 [facility] CHEM PANEL Chloride Lvl 107 95 - 109 11/04/2014 [facility] CHEM PANEL Calcium Lvl 8.0 8.5 - 10.5 11/04/2014 [facility] CHEM PANEL Globulin 3.6 2.0 - 4.0 11/04/2014 [facility] CHEM PANEL A/G Ratio 0.8 0.7 - 1.6 11/04/2014 [facility] CHEM PANEL B/C Ratio 19 6 - 25 11/04/2014 [facility] CHEM PANEL AGAP 6.3 10.0 - 20.0 11/04/2014 [facility] HEMATOLOGY Monocytes # 0.5 0.0 - 0.8 11/04/2014 [facility] HEMATOLOGY Segs-Bands # 5.5 1.5 - 8.1 11/04/2014 [facility] HEMATOLOGY Lymphocytes # 3.0 1.0 - 5.5 11/04/2014 [facility] HEMATOLOGY Basophils 0.7 0.0 - 1.0 11/04/2014 [facility] HEMATOLOGY Basophils # 0.1 0.0 - 0.2 11/04/2014 [facility] HEMATOLOGY Monocytes 5.5 2.0 - 12.0 11/04/2014 [facility] HEMATOLOGY Eosinophils 2.0 0.0 - 4.0 11/04/2014 [facility] HEMATOLOGY Segs 59.7 45.0 - 75.0 11/04/2014 [facility] HEMATOLOGY Lymphocytes 32.1 20.0 - 40.0 11/04/2014 [facility] HEMATOLOGY Eosinophils # 0.2 0.0 - 0.5 11/04/2014 [facility] HEMATOLOGY WBC 9.3 3.7 - 10.4 11/04/2014 [facility] HEMATOLOGY MCV 82.7 80.0 - 98.0 11/04/2014 [facility] HEMATOLOGY Hct 36.9 36.0 - 48.0 11/04/2014 [facility] HEMATOLOGY Hgb 12.3 12.0 - 16.0 11/04/2014 [facility] HEMATOLOGY RBC 4.46 4.20 - 5.40 11/04/2014 [facility] HEMATOLOGY MCH 27.5 27.0 - 31.0 11/04/2014 [facility] HEMATOLOGY MPV 8.8 7.4 - 10.4 11/04/2014 [facility] HEMATOLOGY Platelet 318 133 - 450 11/04/2014 [facility] HEMATOLOGY RDW 14.0 11.5 - 14.5 11/04/2014 [facility] HEMATOLOGY MCHC 33.2 32.0 - 36.0 11/04/2014 [facility] URINE AND STOOL UA Urobilinogen <=1.0 mg/dL 0.1 - 1.0 10/30/2014 [facility] URINE AND STOOL UA Bacteria Occasional /HPF None Seen /HPF 10/30/2014 [facility] URINE AND STOOL UA Turbidity Marked *ABN* (10/30/14 8:37 AM) Clear 10/30/2014 [facility] URINE AND STOOL UA Color Yellow *NA* (10/30/14 8:37 AM) Yellow 10/30/2014 [facility] URINE AND STOOL UA Protein Negative mg/dL Negative mg/dL 10/30/2014 [facility] URINE AND STOOL UA Glucose Negative mg/dL Negative mg/dL 10/30/2014 [facility] URINE AND STOOL UA pH 5.0 5.0 - 8.0 10/30/2014 [facility] URINE AND STOOL UA Spec Grav 1.029 <=1.030 10/30/2014 [facility] URINE AND STOOL UA Mucus Few /LPF None Seen /LPF 10/30/2014 [facility] URINE AND STOOL UA Leuk Est Moderate *ABN* (10/30/14 8:37 AM) Negative 10/30/2014 [facility] URINE AND STOOL UA Sq Epi Many /LPF Few /LPF 10/30/2014 [facility] URINE AND STOOL UA RBC 4 0 - 2 10/30/2014 [facility] URINE AND STOOL UA WBC 21 0 - 5 10/30/2014 [facility] URINE AND STOOL UA Bili Negative *NA* (10/30/14 8:37 AM) Negative 10/30/2014 [facility] URINE AND STOOL UA Ketones Negative mg/dL Negative mg/dL 10/30/[address] [facility] [address] URINE AND STOOL UA Nitrite Negative (10/30/14 8:37 AM) Negative 10/30/2014 [facility] URINE AND STOOL UA Blood Moderate *ABN* (10/30/14 8:37 AM) Negative 10/30/2014 [facility] URINE CHEM U Preg Negat jesus (10/30/14 8:37 AM) Negative 10/30/2014 [facility] ELECTROLYTES Sodium Lvl 136 135 - 145 10/30/2014 [facility] ELECTROLYTES Chloride Lvl 107 95 - 109 10/30/2014 [facility] ELECTROLYTES Potassium Lvl 3.8 3.5 - 5.1 10/30/2014 [facility] ELECTROLYTES Calcium Lvl 8.3 8.5 - 10.5 10/30/2014 [facility] ELECTROLYTES eGFR 117 10/30/2014 <sup>1</sup>Result Comment: [...] should be multiplied by the estimated BMI. [facility] ELECTROLYTES Creatinine Lvl 0.7 0.5 - 1.4 10/30/2014 [facility] ELECTROLYTES CO2 23 24 - 32 10/30/2014 [facility] ELECTROLYTES Albumin Lvl 3.4 3.5 - 5.0 10/30/2014 [facility] ELECTROLYTES ALT 31 0 - 65 10/30/2014 [facility] ELECTROLYTES Alk Phos 85 39 - 136 10/30/2014 [facility] ELECTROLYTES AST 22 0 - 37 10/30/2014 [facility] ELECTROLYTES Total Protein 7.4 6.4 - 8.4 10/30/2014 [facility] ELECTROLYTES Bili Total 0.3 0.2 - 1.3 10/30/2014 [facility] ELECTROLYTES Glucose Lvl 129 70 - 99 10/30/2014 <sup>2</sup>Interpretive Data: Adult ref erence range values reflect the clinical guidelines
of the [employer]. [facility] ELECTROLYTES BUN 14 7 - 22 10/30/2014 [facility] ELECTROLYTES A/G Ratio 0.8 0.7 - 1.6 10/30/2014 [facility] ELECTROLYTES AGAP 9.8 10.0 - 20.0 10/30/2014 [facility] ELECTROLYTES B/C Ratio 20 6 - 25 10/30/2014 [facility] ELECTROLYTES Globulin 4.0 2.0 - 4.0 10/30/2014 [facility] HEMATOLOGY Basophils 0.8 0.0 - 1.0 10/30/2014 [facility] HEMATOLOGY Segs-Bands # 6.0 1.5 - 8.1 10/30/2014 [facility] HEMATOLOGY Monocytes # 0.6 0.0 - 0.8 10/30/2014 [facility] HEMATOLOGY Lymphocytes # 1.8 1.0 - 5.5 10/30/2014 [facility] HEMATOLOGY Eosinophils # 0.2 0.0 - 0.5 10/30/2014 [facility] HEMATOLOGY Basophils # 0.1 0.0 - 0.2 10/30/2014 [facility] HEMATOLOGY Eosinophils 2.8 0.0 - 4.0 10/30/2014 [facility] HEMATOLOGY Monocytes 7.1 2.0 - 12.0 10/30/2014 [facility] HEMATOLOGY Segs 68.8 45.0 - 75.0 10/30/2014 [facility] HEMATOLOGY Lymphocytes 20.5 20.0 - 40.0 10/30/2014 [facility] HEMATOLOGY WBC 8.7 3.7 - 10.4 10/30/2014 [facility] HEMATOLOGY RBC 4.70 4.20 - 5.40 10/30/2014 [facility] HEMATOLOGY Hgb 12.8 12.0 - 16.0 10/30/2014 [facility] HEMATOLOGY Hct 38.8 36.0 - 48.0 10/30/2014 [facility] HEMATOLOGY MCV 82.6 80.0 - 98.0 10/30/2014 [facility] HEMATOLOGY MCH 27.2 27.0 - 31.0 10/30/2014 [facility] HEMATOLOGY MCHC 32.9 32.0 - 36.0 10/30/2014 [facility] HEMATOLOGY RDW 14.3 11.5 - 14.5 10/30/2014 [facility] HEMATOLOGY Platelet 334 133 - 450 10/30/2014 [facility] HEMATOLOGY MPV 8.7 7.4 - 10.4 10/30/2014 [facility] URINE AND STOOL UA Urobilinogen <=1.0 mg/dL 0.1 - 1.0 06/23/2014 [facility] URINE AND STOOL UA Color Ltyellow 06/23/2014 [facility] URINE AND STOOL UA Bacteria Occasional /HPF None Seen /HPF 06/23/2014 [facility] URINE AND STOOL UA RBC 2 0 - 2 06/23/2014 [facility] URINE AND STOOL UA Sq Epi Few /LPF Few /LPF 06/23/2014 [facility] URINE AND STOOL UA WBC 11 0 - 5 06/23/2014 [facility] URINE AND STOOL UA Leuk Est Small *ABN* (06/23/14 9:40 AM) Negative 06/23/2014 [facility] URINE AND STOOL UA Nitrite Negative (06/23/14 9:40 AM) Negative 06/23/2014 [facility] URINE AND STOOL UA Blood Small *ABN* (06/23/14 9:40 AM) Negative 06/23/2014 [facility] URINE AND STOOL UA Spec Grav 1.015 <=1.030 06/23/2014 [facility] URINE AND STOOL UA Glucose Negative mg/dL Negative mg/dL 06/23/2014 [facility] URINE AND STOOL UA Turbidity Slight *ABN* (06/23/14 9:40 AM) Clear 06/23/2014 [facility] URINE AND STOOL UA Protein Negative mg/dL Negative mg/dL 06/23/2014 [facility] URINE AND STOOL UA pH 5.0 5.0 - 8.0 06/23/2014 [facility] URINE AND STOOL UA Bili Negative *NA* (06/23/14 9:40 AM) Negative 06/23/2014 [facility] URINE AND STOOL UA Ketones Negative mg/dL Negative mg/dL 06/23/2014 [facility] URINE CHEM U Preg Negat jesus (06/23/14 9:40 AM) Negative 06/23/2014 [facility] CHEM PANEL eGFR 117 06/23/2014 <sup>1</sup>Result [...] should be multiplied by the estimated BMI. [facility] CHEM PANEL Chloride Lvl 106 95 - 109 06/23/2014 [facility] CHEM PANEL Potassium Lvl 3.8 3.5 - 5.1 06/23/2014 [facility] CHEM PANEL CO2 24 24 - 32 06/23/2014 [facility] CHEM PANEL Calcium Lvl 8.4 8.5 - 10.5 06/23/2014 [facility] CHEM PANEL BUN 12 7 - 22 06/23/2014 [facility] CHEM PANEL Glucose Lvl 158 70 - 99 06/23/2014 <sup>2</sup>Interpretive Data: Adult ref erence range values reflect the clinical guidelines
of the [employer]. [facility] CHEM PANEL Sodium Lvl 137 135 - 145 06/23/2014 [facility] CHEM PANEL Creatinine Lvl 0.7 0.5 - 1.4 06/23/2014 [facility] CHEM PANEL AGAP 10.8 10.0 - 20.0 06/23/2014 [facility] ENDOCRINOLOGY S Preg Ne gative *NA* (06/23/14 8:54 AM) Negative 06/23/2014 [facility] HEMATOLOGY Eosinophils # 0.3 0.0 - 0.5 06/23/2014 [facility] HEMATOLOGY Monocytes # 0.5 0.0 - 0.8 06/23/2014 [facility] HEMATOLOGY Basophils # 0.1 0.0 - 0.2 06/23/2014 [facility] HEMATOLOGY Lymphocytes 28.8 20.0 - 40.0 06/23/2014 [facility] HEMATOLOGY Segs 62.7 45.0 - 75.0 06/23/2014 [facility] HEMATOLOGY Eosinophils 2.7 0.0 - 4.0 06/23/2014 [facility] HEMATOLOGY Monocytes 5.1 2.0 - 12.0 06/23/2014 [facility] HEMATOLOGY Basophils 0.7 0.0 - 1.0 06/23/2014 [facility] HEMATOLOGY Segs-Bands # 6.3 1.5 - 8.1 06/23/2014 [facility] HEMATOLOGY Lymphocytes # 2.9 1.0 - 5.5 06/23/2014 [facility] HEMATOLOGY MCHC 32.3 32.0 - 36.0 06/23/2014 [facility] HEMATOLOGY RDW 14.2 11.5 - 14.5 06/23/2014 [facility] HEMATOLOGY Platelet 336 133 - 450 06/23/2014 [facility] HEMATOLOGY MPV 8.9 7.4 - 10.4 06/23/2014 [facility] HEMATOLOGY MCV 83.5 80.0 - 98.0 06/23/2014 [facility] HEMATOLOGY MCH 27.0 27.0 - 31.0 06/23/2014 [facility] HEMATOLOGY Hct 36.7 36.0 - 48.0 06/23/2014 [facility] HEMATOLOGY RBC 4.39 4.20 - 5.40 06/23/2014 [facility] HEMATOLOGY Hgb 11.9 12.0 - 16.0 06/23/2014 [facility] HEMATOLOGY WBC 10.1 3.7 - 10.4 06/23/2014 [facility] CHEMISTRY Lipase Lvl 167 73 - 393 07/09/2012 Normal [facility] CHEMISTRY B/C Ratio 13 6 - 25 07/09/2012 Normal [facility] CHEMISTRY AGAP 9.9 10.0 - 20.0 07/09/2012 LOW [facility] CHEMISTRY Globulin 3.8 2.0 - 4.0 07/09/2012 Normal [facility] CHEMISTRY A/G Ratio 0.9 0.7 - 1.6 07/09/2012 Normal [facility] CHEMISTRY Glucose Lvl 105 70 - 99 07/09/2012 [facility] <sup>2</sup>Interpretive Data: Adult ref erence range values reflect the clinical guidelines
of the [employer]. [facility] CHEMISTRY BUN 12 7 - 22 07/09/2012 Normal [facility] CHEMISTRY Creatinine Lvl 0.9 0.5 - 1.4 07/09/2012 Normal [facility] CHEMISTRY CO2 27 24 - 32 07/09/2012 Normal [facility] CHEMISTRY Calcium Lvl 8.3 8.5 - 10.5 07/09/2012 LOW [facility] CHEMISTRY Sodium Lvl 141 135 - 145 07/09/2012 Normal [facility] CHEMISTRY Potassium Lvl 3.9 3.5 - 5.1 07/09/2012 Normal [facility] CHEMISTRY Chloride Lvl 108 95 - 109 07/09/2012 Normal [facility] CHEMISTRY Albumin Lvl 3.3 3.5 - 5.0 07/09/2012 LOW [facility] CHEMISTRY eGFR 88 07/09/2012 NA <sup>1</sup>Result [...] should be multiplied by the estimated BMI. [facility] CHEMISTRY Alk Phos 82 39 - 136 07/09/2012 Normal [facility] CHEMISTRY Bili Total 0.2 0.2 - 1.3 07/09/2012 Normal [facility] CHEMISTRY ALT 29 0 - 65 07/09/2012 Normal [facility] CHEMISTRY Total Protein 7.1 6.4 - 8.4 07/09/2012 Normal [facility] CHEMISTRY AST 19 0 - 37 07/09/2012 Normal [facility] HEMATOLOGY Lymphocytes # 3.4 1.0 - 5.5 07/09/2012 Normal [facility] HEMATOLOGY Eosinophils # 0.2 0.0 - 0.5 07/09/2012 Normal [facility] HEMATOLOGY Basophils # 0.0 0.0 - 0.2 07/09/2012 Normal [facility] HEMATOLOGY Monocytes # 0.6 0.0 - 0.8 07/09/2012 Normal [facility] HEMATOLOGY Segs-Bands # 5.5 1.5 - 8.1 07/09/2012 Normal [facility] HEMATOLOGY Monocytes 6.6 2.0 - 12.0 07/09/2012 Normal [facility] HEMATOLOGY Lymphocytes 34.9 20.0 - 40.0 07/09/2012 Normal [facility] HEMATOLOGY Segs 56.4 45.0 - 75.0 07/09/2012 Normal [facility] HEMATOLOGY Basophils 0.4 0.0 - 1.0 07/09/2012 Normal [facility] HEMATOLOGY Eosinophils 1.7 0.0 - 4.0 07/09/2012 Normal [facility] HEMATOLOGY WBC 9.8 3.7 - 10.4 07/09/2012 Normal [facility] HEMATOLOGY MCV 84.0 81.0 - 99.0 07/09/2012 Normal [facility] HEMATOLOGY MCH 27.9 27.0 - 31.0 07/09/2012 Normal [facility] HEMATOLOGY MPV 9.0 7.4 - 10.4 07/09/2012 Normal [facility] HEMATOLOGY Hgb 11.8 12.0 - 16.0 07/09/2012 LOW [facility] HEMATOLOGY RBC 4.22 4.20 - 5.40 07/09/2012 Normal [facility] HEMATOLOGY Hct 35.5 36.0 - 48.0 07/09/2012 LOW [facility] HEMATOLOGY MCHC 33.2 32.0 - 36.0 07/09/2012 Normal [facility] HEMATOLOGY RDW 14.5 11.5 - 14.5 07/09/2012 Normal [facility] HEMATOLOGY Platelet 305 133 - 450 07/09/2012 Normal [facility] CHEMISTRY U Preg Negati ve (07/08/2012 22:53:00) Negati ve 07/09/2012 Normal [facility] URINALYSIS UA Urobilinogen 0.2 0.1 - 1.0 07/09/2012 Normal [facility] URINALYSIS UA Nitrite Negat jesus (07/08/2012 22:53:00) Negati ve 07/09/2012 Normal [facility] URINALYSIS UA Ketones Negat jesus *NA* (07/08/2012 22:53:00) Negati ve 07/09/2012 NA [facility] URINALYSIS UA Blood Small *ABN* (07/08/2012 22:53:00) Negati ve 07/09/2012 [facility] URINALYSIS UA Glucose Negat jesus (07/08/2012 22:53:00) Negati ve 07/09/2012 Normal [facility] URINALYSIS UA Bili Negat jesus *NA* (07/08/2012 22:53:00) Negati ve 07/09/2012 [facility] URINALYSIS UA Protein Negat jesus (07/08/2012 22:53:00) Negati ve 07/09/2012 Normal [facility] URINALYSIS UA pH 7.0 5.0 - 8.0 07/09/2012 Normal [facility] URINALYSIS UA Leuk Est Negat jesus (07/08/2012 22:53:00) Negati ve 07/09/2012 Normal [facility] URINALYSIS UA Color Yello w *NA* (07/08/2012 22:53:00) Yellow 07/09/2012 [facility] URINALYSIS UA Turbidity Clear (07/08/2012 22:53:00) Clear 07/09/2012 Normal [facility] URINALYSIS UA Spec Grav 1.025 <=1.030 07/09/2012 Normal [facility] URINALYSIS UA Sq Epi Many /LPF *ABN* (07/08/2012 22:53:00) Few 07/09/2012 ABN [facility] URINALYSIS UA RBC 2 0 - 2 07/09/2012 Normal [facility] URINALYSIS UA Bacteria Few / HPF *NA* (07/08/2012 22:53:00) None S een 07/09/2012 NA [facility] URINALYSIS UA Mucus Few / LPF *NA* (07/08/2012 22:53:00) None S een 07/09/2012 NA [facility] URINALYSIS UA WBC 8 0 - 5 07/09/2012 HI [facility] CHEMISTRY U Preg Negati ve (04/22/2012 08:19:00) Negati ve 04/22/2012 Normal [facility] CHEMISTRY U Preg Negati ve (04/16/2012 08:45:00) Negati ve 04/16/2012 Normal [facility] CHEMISTRY AGAP 12.0 10.0 - 20.0 04/16/2012 Normal [facility] CHEMISTRY Creatinine Lvl 1.0 0.5 - 1.4 04/16/2012 Normal [facility] CHEMISTRY BUN 13 7 - 22 04/16/2012 Normal [facility] CHEMISTRY Calcium Lvl 8.4 8.5 - 10.5 04/16/2012 LOW [facility] CHEMISTRY CO2 24 24 - 32 04/16/2012 Normal [facility] CHEMISTRY Glucose Lvl 112 70 - 99 04/16/2012 [place] <sup>1</sup>Interpretive Data: Adult ref erence range values reflect the clinical guidelines
of the [employer]. [facility] CHEMISTRY Potassium Lvl 4.0 3.5 - 5.1 04/16/2012 Normal [facility] CHEMISTRY Sodium Lvl 139 135 - 145 04/16/2012 Normal [facility] CHEMISTRY Chloride Lvl 107 95 - 109 04/16/2012 Normal [facility] HEMATOLOGY MCV 82.7 81.0 - 99.0 04/16/2012 Normal [facility] HEMATOLOGY RDW 14.4 11.5 - 14.5 04/16/2012 Normal [facility] HEMATOLOGY MCH 27.5 27.0 - 31.0 04/16/2012 Normal [facility] HEMATOLOGY MCHC 33.2 32.0 - 36.0 04/16/2012 Normal [facility] HEMATOLOGY Hct 37.5 36.0 - 48.0 04/16/2012 Normal [facility] HEMATOLOGY WBC 8.7 3.7 - 10.4 04/16/2012 Normal [facility] HEMATOLOGY Hgb 12.4 12.0 - 16.0 04/16/2012 Normal [facility] HEMATOLOGY RBC 4.53 4.20 - 5.40 04/16/2012 Normal [facility] HEMATOLOGY Platelet 313 133 - 450 04/16/2012 Normal [facility] HEMATOLOGY MPV 8.9 7.4 - 10.4 04/16/2012 Normal [facility] HEMATOLOGY Basophils # 0.0 0.0 - 0.2 04/16/2012 Normal [facility] HEMATOLOGY Monocytes # 0.6 0.0 - 0.8 04/16/2012 Normal [facility] HEMATOLOGY Eosinophils # 0.1 0.0 - 0.5 04/16/2012 Normal [facility] HEMATOLOGY Segs-Bands # 5.2 1.5 - 8.1 04/16/2012 Normal [facility] HEMATOLOGY Lymphocytes # 2.9 1.0 - 5.5 04/16/2012 Normal [facility] HEMATOLOGY Basophils 0.4 0.0 - 1.0 04/16/2012 Normal [facility] HEMATOLOGY Eosinophils 1.6 0.0 - 4.0 04/16/2012 Normal [facility] HEMATOLOGY Monocytes 6.4 2.0 - 12.0 04/16/2012 Normal [facility] HEMATOLOGY Lymphocytes 32.6 20.0 - 40.0 04/16/2012 Normal [facility] HEMATOLOGY Segs 59.0 45.0 - 75.0 04/16/2012 Normal [facility] URINALYSIS UA Color Ltyellow 04/16/2012 NA [facility] URINALYSIS UA Urobilinogen 0.1 - 1.0 04/16/2012 [facility] URINALYSIS UA RBC 2 0 - 2 04/16/2012 Normal [facility] URINALYSIS UA WBC 2 0 - 5 04/16/2012 Normal [facility] URINALYSIS UA Sq Epi Few / LPF *NA* (04/16/2012 08:45:00) Few 04/16/2012 [facility] URINALYSIS UA Bacteria Occas ional /HPF [...] mg/dL (04/16/2012 08:45:00) Negati ve 04/16/2012 Normal [facility] IMMUNOLOGY Gonorrhea PCR Negat jesus (04/16/2012 08:43:00) Negati ve 04/16/2012 Normal [facility] IMMUNOLOGY Source Diogo Endoc ervix 04/16/2012 NA [facility] IMMUNOLOGY Chlam PCR Negat jesus (04/16/2012 08:43:00) Negati ve 04/16/2012 Normal [facility] IMMUNOLOGY Source Chlam endoc ervix 04/16/2012 NA [facility] RAPID Grp A Strep Scr Negative (11/09/2011 19:45:00) Negati ve 11/10/2011 Normal [facility] CHEMISTRY Lipase Lvl 160 73 - 393 10/15/2011 Normal [facility] CHEMISTRY Alk Phos 60 39 - 136 10/15/2011 Normal [facility] CHEMISTRY Calcium Lvl 8.7 8.5 - 10.5 10/15/2011 Normal [facility] CHEMISTRY Total Protein 7.6 6.4 - 8.4 10/15/2011 Normal [facility] CHEMISTRY Albumin Lvl 3.8 3.5 - 5.0 10/15/2011 Normal [facility] CHEMISTRY ALT 24 0 - 65 10/15/2011 Normal [facility] CHEMISTRY AST 17 0 - 37 10/15/2011 Normal [facility] CHEMISTRY Bili Total 0.3 0.2 - 1.3 10/15/2011 Normal [facility] CHEMISTRY Sodium Lvl 140 135 - 145 10/15/2011 Normal [facility] CHEMISTRY Potassium Lvl 4.1 3.5 - 5.1 10/15/2011 Normal [facility] CHEMISTRY Chloride Lvl 106 95 - 109 10/15/2011 Normal [facility] CHEMISTRY Creatinine Lvl 0.7 0.5 - 1.4 10/15/2011 Normal [facility] CHEMISTRY Glucose Lvl 76 10/15/2011 NA <sup>1</sup>Interpretive Data: Reference Ranges : 0 - 7 days : 41 - 90 mg/dL 7 days - 150 yrs : 70 - 99 mg/dL (fasting), based on the clinical recommendations of the [employer]. [facility] CHEMISTRY BUN 12 7 - 22 10/15/2011 Normal [facility] CHEMISTRY CO2 24 24 - 32 10/15/2011 Normal [facility] CHEMISTRY Globulin 3.8 2.0 - 4.0 10/15/2011 Normal [facility] CHEMISTRY A/G Ratio 1.0 0.7 - 1.6 10/15/2011 Normal [facility] CHEMISTRY B/C Ratio 17 6 - 25 10/15/2011 Normal [facility] CHEMISTRY AGAP 14.1 10.0 - 20.0 10/15/2011 Normal [facility] CHEMISTRY Amylase Lvl 25 25 - 115 10/15/2011 Normal [facility] CHEMISTRY S Preg Negati ve *NA* (10/15/2011 14:11:00) Negati ve 10/15/2011 NA [facility] HEMATOLOGY Basophils # 0.1 0.0 - 0.2 10/15/2011 Normal [facility] HEMATOLOGY Lymphocytes 29.5 20.0 - 40.0 10/15/2011 Normal [facility] HEMATOLOGY Segs 62.2 45.0 - 75.0 10/15/2011 Normal [facility] HEMATOLOGY Segs-Bands # 7.0 1.5 - 8.1 10/15/2011 Normal [facility] HEMATOLOGY Lymphocytes # 3.3 1.0 - 5.5 10/15/2011 Normal [facility] HEMATOLOGY Basophils 1.2 0.0 - 1.0 10/15/2011 HI [facility] HEMATOLOGY Eosinophils 2.1 0.0 - 4.0 10/15/2011 Normal [facility] HEMATOLOGY Monocytes 5.0 2.0 - 12.0 10/15/2011 Normal [facility] HEMATOLOGY Eosinophils # 0.2 0.0 - 0.5 10/15/2011 Normal [facility] HEMATOLOGY Monocytes # 0.6 0.0 - 0.8 10/15/2011 Normal [facility] HEMATOLOGY Platelet 341 133 - 450 10/15/2011 Normal [facility] HEMATOLOGY MPV 9.2 7.4 - 10.4 10/15/2011 Normal [facility] HEMATOLOGY RDW 14.0 11.5 - 14.5 10/15/2011 Normal [facility] HEMATOLOGY Hgb 13.2 12.0 - 16.0 10/15/2011 Normal [facility] HEMATOLOGY MCHC 33.9 32.0 - 36.0 10/15/2011 Normal [facility] HEMATOLOGY MCH 28.3 27.0 - 31.0 10/15/2011 Normal [facility] HEMATOLOGY MCV 83.4 81.0 - 99.0 10/15/2011 Normal [facility] HEMATOLOGY Hct 38.9 36.0 - 48.0 10/15/2011 Normal [facility] HEMATOLOGY RBC 4.67 4.20 - 5.40 10/15/2011 Normal [facility] HEMATOLOGY WBC 11.3 3.7 - 10.4 10/15/2011 HI [facility] URINALYSIS UA Mucus Few / LPF (10/15/2011 14:11:00) None S een 10/15/2011 Normal [facility] URINALYSIS UA [place] Yeast Many /HPF *ABN* (10/15/2011 14:11:00) None S een 10/15/2011 ABN [facility] URINALYSIS UA Sq Epi Rare /LPF (10/15/2011 14:11:00) Few 10/15/2011 Normal [facility] URINALYSIS Micro? Perfo rmed (10/15/2011 14:11:00) 10/15/2011 Normal [facility] URINALYSIS UA Bacteria Moder ate /HPF (10/15/2011 14:11:00) None S een 10/15/2011 Normal [facility] URINALYSIS UA WBC 0-2 / HPF (10/15/2011 14:11:00) None S een 10/15/2011 Normal [facility] URINALYSIS UA RBC 51-10 0 /HPF *ABN* (10/15/2011 14:11:00) 0 - 2 10/15/2011 ABN [facility] URINALYSIS UA Leuk Est Negat jesus (10/15/2011 14:11:00) Negati ve 10/15/2011 Normal [facility] URINALYSIS UA Nitrite Posit jesus *ABN* (10/15/2011 14:11:00) Negati ve 10/15/2011 ABN [facility] URINALYSIS UA Urobilinogen 0.2 0.1 - 1.0 10/15/2011 Normal [facility] URINALYSIS UA Bili Negat jesus *NA* (10/15/2011 14:11:00) Negati ve 10/15/2011 NA [facility] URINALYSIS UA Ketones Negat jesus *NA* (10/15/2011 14:11:00) Negati ve 10/15/2011 NA [facility] URINALYSIS UA Glucose Negat jesus (10/15/2011 14:11:00) Negati ve 10/15/2011 Normal [facility] URINALYSIS UA Protein Negat jesus (10/15/2011 14:11:00) Negati ve 10/15/2011 Normal [facility] URINALYSIS UA Spec Grav >=1.0 30 *ABN* (10/15/2011 14:11:00) <=1.030 10/15/2011 ABN [facility] URINALYSIS UA Blood Large *ABN* (10/15/2011 14:11:00) Negati ve 10/15/2011 ABN [facility] URINALYSIS UA Color Yello w *NA* (10/15/2011 14:11:00) Yellow 10/15/2011 NA [facility] URINALYSIS UA pH 5.0 5.0 - 8.0 10/15/2011 Normal [facility] URINALYSIS UA Turbidity Sligh t Cloudy (10/15/2011 14:11:00) Clear 10/15/2011 Normal [facility] Pathology Reports No Data Provided for [...] evidence of acute car diopulmonary process. SL: [id number] 07/30/2017 [facility] Preg < 14wks Single gest [...] ULTRASOUND: Single viable intrauterine gestation is seen. Sasser-rump length of the embryo is 2.4 mm. [...] normal heart rate of 100 bpm. SL: [id number] 09/21/2016 [facility] Chest 1view DX Study: Chest 1v iew DX Clinical Indication: Chest pain Comparison: Chest x-ray from 07/13/2016 FINDINGS: The cardiac silhouette is normal in size. The lungs are clear and without consolidation or congestion. No pleural effusion or pneumothorax is seen. The osseous structures are unremarkable. IMPRESSION: No acute cardiopulmonary disease. SL: [id number] 09/21/2016 [facility] Preg < 14wks Single gest [...] no embryo is seen. Uterine fibroid. SL: [id number] 09/16/2016 [facility] Brain wo contrast CT EXAM: CT [...] Dural calcification is considered less likely. SL: [id number] 07/13/2016 [facility] Chest 1view DX EXAM: XR CHEST 1 [...] identified. IMPRESSION: No acute cardiopulmonary abnormality. SL: [id number] 07/13/2016 [facility] 2 views DX PA and latera l chest: The cardiomediastinal silhouette, pulmonary vasculature and iraida are within normal limits. The lungs and pleural spaces are clear. There are no significant osseous abnormalities. There is no significant change compared to 07/07/2016. IMPRESSION: No acute radiographic abnormalities in the chest. SL [id number] 07/10/2016 [facility] Chest 1view DX Study: Chest 1v iew DX 07/07/2016 4:52 PM CDT Patient Name: ROXANA HUERTA MR: [id number] : 1985; Age: 30 years y/o Female Ordering Physician: Shruti Tee Clinical Indication: Chest pain Comparison: 06-29. FINDINGS LUNGS: The lungs are clear of consolidation, pleural effusion, and pneumothorax. HEART AND MEDIASTINUM: Normal size heart. LINES: None. OSSEOUS STRUCTURES: No fracture, dislocation, or suspicious focal osseous lesion. OTHER: None. IMPRESSION: 1. No acute abnormality as above discus sed. SL: [id number] 07/07/2016 [facility] Chest 2 views DX Clinical Marce cation: [...] radiographic evidence of acute cardiopulmonary disease. SL: [id number] 06/19/2016 [facility] Brain wo contrast CT Study: Rolando bazzi [...] scan of the brain without contrast. SL: [id number] 06/18/2016 [facility] Chest 2 views DX Patient Name: ROXANA HUERTA : 1985; Age: 30 years y/o Female MR: [id number] Study: Chest 2 views DX 06/18/2016 8:18 PM CDT Ordering Physician: Clinical Indication: Chest pain; Comparison: 04/18/2016 Two-view chest Lungs are clear. Heart size normal. No pleural effusion or pneumothorax. No osseous abnormalities. IMPRESSION: Negative. SL: CAMILLA 06/18/2016 [facility] Chest 1view DX Patient Name: Adan HUERTA : 1985; Age: 30 years Female MR: [id number] Study: Chest 1view DX Order Time: 04/18/2016 [...] of acute pulmonary disease. SL: CANDY 04/18/2016 [facility] Renal Stone CT EXAM: CT renal stone HISTORY: Acute right lower abdominal pain, possible renal stone COMPARISON: [place] [id number] TECHNIQUE: Axial images of the abdomen and [...] small bowel obstruction. 3. Fatty liver. SL: [id number] 03/21/2016 [facility] Abdomen RUQ US Patient Name: Adan HUERTA : 1985; Age: 30 years Female MR: [id number] Study: Abdomen RUQ US 12/02/2015 3:26 PM [...] a distal obstructing process is recommended. SL: [id number] 12/02/2015 [facility] Pelvis Transvaginal US Patient Name: ROXANA HUERTA : 1985; Age: 30 years y/o Female MR: [id number] Study: Pelvis Transvaginal US 11/09/2015 10:53 PM CASE SPECIALIST Ordering Physician: Samir Leon Clinical Indication: [...] to document for stability or resolution. SL: [id number] 11/10/2015 [facility] Abdomen/Pelvis w IV contrast CT I. [...] hernia. SL: 12 Maciel Jeffrey M.D. 06/11/2015 [facility] Abdomen RUQ US Right upper kelly drant [...] flow. Impression: 1. Hepatic steatosis SL: 04/21/2015 [facility] Abdomen acute series w chest 1 [...] 2. No acute cardiopulmonary disease. SL: 04/21/2015 [facility] Abdomen/Pelvis w IV contrast CT I. [...] bowel. SL: 13 Maciel Jeffrey M.D. 03/09/2015 [facility] Transvaginal US NAME: ROXANA HUERTA : 1985 SEX: F Ordering Physician: Aretmio Gonzales Endovaginal ultrasound of the pelvis : [...] ultrasound of the pelvis. SL: 14 03/09/2015 [facility] Abdomen/Pelvis IV contrast only CT CT [...] fat containing umbilical hernia SL: 12 10/30/2014 [facility] Consultation Notes No Data Provided for This Section Discharge Summaries No Data Provided for This Section History and Physicals No Data Provided for This Section Vital Signs Vital Sign Value Date Comments Source Respitory Rate 16 07/31/2017 [facility] Heart Rate 72 07/31/2017 [facility] Systolic (mm Hg) 99 07/31/2017 [facility] Diastolic (mm Hg) 62 07/31/2017 [facility] Temperature Oral (F) 98.7 F 07/31/2017 [facility] Temperature Oral (F) 98.7 F 07/30/2017 [facility] Heart Rate 78 07/30/2017 [facility] Respitory Rate 16 07/30/2017 [facility] Systolic (mm Hg) 102 07/30/2017 [facility] Diastolic (mm Hg) 64 07/30/2017 [facility] Heart Rate 91 07/30/2017 [facility] Respitory Rate 16 07/30/2017 [facility] Systolic (mm Hg) 110 07/30/2017 [facility] Diastolic (mm Hg) 95 07/30/2017 [facility] Weight 90 1 09/29/2016 [facility] BMI Calculated 36.29 07/30/2017 [facility] Height 157.48 cm 07/30/2017 [facility] Temperature Oral (F) 98 F 07/30/2017 [facility] Weight 97.727 10/24/2016 [facility] BMI Calculated 39.41 10/24/2016 [facility] Heart Rate 86 10/24/2016 [facility] Respitory Rate 20 10/24/2016 [facility] Height 157.48 cm 10/24/2016 [facility] Temperature Oral (F) 98.0 F 10/24/2016 [facility] Systolic (mm Hg) 116 10/24/2016 [facility] Diastolic (mm Hg) 70 10/24/2016 [facility] Respitory Rate 16 09/21/2016 [facility] Temperature Oral (F) 97.8 F 09/21/2016 [facility] Heart Rate 83 09/21/2016 [facility] Systolic (mm Hg) 121 09/21/2016 [facility] Diastolic (mm Hg) 61 09/21/2016 [facility] Heart Rate 72 09/21/2016 [facility] Respitory Rate 16 09/21/2016 [facility] Temperature Oral (F) 97.4 F 09/21/2016 [facility] Weight 93.636 09/21/2016 [facility] Systolic (mm Hg) 117 09/21/2016 [facility] Diastolic (mm Hg) 69 09/21/2016 [facility] Systolic (mm Hg) 110 09/17/2016 [facility] Diastolic (mm Hg) 58 09/17/2016 [facility] Respitory Rate 16 09/17/2016 [facility] Temperature Oral (F) 98.2 F 09/17/2016 [facility] Heart Rate 72 09/17/2016 [facility] Weight 94.545 09/16/2016 [facility] BMI Calculated 38.12 09/16/2016 [facility] Height 157.48 cm 09/16/2016 [facility] Temperature Oral (F) 98.6 F 09/16/2016 [facility] Systolic (mm Hg) 107 09/16/2016 [facility] Diastolic (mm Hg) 73 09/16/2016 [facility] Respitory Rate 18 09/16/2016 [facility] Heart Rate 69 09/16/2016 [facility] Respitory Rate 18 07/13/2016 [facility] Systolic (mm Hg) 107 07/13/2016 [facility] Diastolic (mm Hg) 68 07/13/2016 [facility] Temperature Oral (F) 98 F 07/13/2016 [facility] Respitory Rate 15 07/13/2016 [facility] Systolic (mm Hg) 107 07/13/2016 [facility] Diastolic (mm Hg) 65 07/13/2016 [facility] Temperature Oral (F) 98 F 07/13/2016 [facility] Systolic (mm Hg) 110 07/13/2016 [facility] Diastolic (mm Hg) 71 07/13/2016 [facility] Respitory Rate 17 07/13/2016 [facility] Temperature Oral (F) 98 F 07/13/2016 [facility] Weight 97.727 07/13/2016 [facility] Height 162.56 cm 07/13/2016 [facility] BMI Calculated 36.98 07/13/2016 [facility] Heart Rate 75 07/13/2016 [facility] BMI Calculated [...] 162.56 cm 06/19/2016 [facility] Weight 97.727 06/19/2016 [facility] Temperature Oral (F) 98.2 F 06/19/2016 [facility] Heart Rate 82 06/19/2016 [facility] Systolic (mm Hg) 116 06/19/2016 [facility] Diastolic (mm Hg) 81 06/19/2016 [facility] Temperature Oral (F) 98.3 F 05/25/2016 [facility] Systolic (mm Hg) 111 05/25/2016 [facility] Diastolic (mm Hg) 72 05/25/2016 [facility] Respitory Rate 18 05/25/2016 [facility] Heart Rate 66 05/25/2016 [facility] Weight 97.727 05/25/2016 [facility] Height 157.48 cm 05/25/2016 [facility] BMI Calculated 39.41 05/25/2016 [facility] Systolic (mm Hg) 123 05/25/2016 [facility] Diastolic (mm Hg) 81 05/25/2016 [facility] Heart Rate 82 05/25/2016 [facility] Respitory Rate 20 05/25/2016 [facility] Temperature Oral (F) 98.2 F 05/25/2016 [facility] Heart Rate 65 04/20/2016 [facility] Respitory Rate 16 04/20/2016 [facility] Systolic (mm Hg) 114 04/20/2016 [facility] Diastolic (mm Hg) 66 04/20/2016 [facility] Temperature Oral (F) 97.0 F 04/20/2016 [facility] Heart Rate 52 04/20/2016 [facility] Respitory [...] cm 04/20/2016 [facility] BMI Calculated 40.32 04/20/2016 [facility] Temperature Oral (F) 98.1 F 04/19/2016 [facility] Systolic (mm Hg) 109 04/19/2016 [facility] Diastolic (mm Hg) 64 04/19/2016 [facility] Respitory Rate 18 04/19/2016 [facility] Heart Rate 74 04/19/2016 [facility] Temperature Oral (F) 98.1 F 04/19/2016 [facility] Systolic (mm Hg) 125 04/19/2016 [facility] Diastolic (mm Hg) 65 04/19/2016 [facility] Respitory Rate 18 04/19/2016 [facility] Heart Rate 63 04/19/2016 [facility] Weight 97.727 04/19/2016 [facility] Systolic (mm Hg) 153 04/19/2016 [facility] Diastolic (mm Hg) 89 04/19/2016 [facility] Heart Rate 78 04/19/2016 [facility] Respitory Rate 18 04/19/2016 [facility] Height 157.48 cm 04/19/2016 [facility] BMI Calculated 39.41 04/19/2016 [facility] Temperature Oral (F) 98.6 F 04/19/2016 [facility] Systolic (mm Hg) 113 03/22/2016 [facility] Diastolic (mm Hg) 62 03/22/2016 [facility] Respitory Rate 18 03/22/2016 [facility] Heart Rate 65 03/22/2016 [facility] Temperature Oral (F) 98.3 F 03/22/2016 [facility] Weight 97.727 03/21/2016 [facility] Height 157.48 cm 03/21/2016 [facility] Respitory Rate 17 03/21/2016 [facility] Temperature Oral (F) 98.3 F 03/21/2016 [facility] BMI Calculated 39.41 03/21/2016 [facility] Systolic (mm Hg) 103 03/21/2016 [facility] Diastolic (mm Hg) 69 03/21/2016 [facility] Heart Rate 64 03/21/2016 [facility] Systolic (mm Hg) 103 12/05/2015 [facility] Diastolic (mm Hg) 63 12/05/2015 [facility] Respitory Rate 16 12/05/2015 [facility] Heart Rate 61 12/05/2015 [facility] Temperature Oral (F) 98 F 12/05/2015 [facility] Respitory Rate 18 12/05/2015 [facility] Heart Rate 76 12/05/2015 [facility] Respitory Rate 16 12/05/2015 [facility] Systolic (mm Hg) 90 12/05/2015 [facility] Diastolic (mm Hg) 59 12/05/2015 [facility] Temperature Oral (F) 98.3 F 12/05/2015 [facility] Systolic (mm Hg) 103 12/05/2015 [facility] Diastolic (mm Hg) 64 12/05/2015 [facility] Temperature Oral (F) 97.6 F 12/05/2015 [facility] [...] 11/10/2015 [facility] Diastolic (mm Hg) 70 11/10/2015 [facility] Respitory Rate 20 11/10/2015 [facility] Heart Rate 74 11/10/2015 [facility] Temperature Oral (F) 98.3 F 11/10/2015 [facility] Temperature Oral (F) 98.4 F 11/10/2015 [facility] BMI Calculated 39.41 11/10/2015 [facility] Weight 97.727 11/10/2015 [facility] Height 157.48 cm 11/10/2015 [facility] Respitory Rate 20 11/10/2015 [facility] Heart Rate 73 11/10/2015 [facility] Systolic (mm Hg) 107 11/10/2015 [facility] Diastolic (mm Hg) 62 11/10/2015 [facility] Systolic (mm Hg) 134 10/17/2015 [facility] Diastolic (mm Hg) 80 10/17/2015 [facility] Respitory Rate 18 10/17/2015 [facility] Heart Rate 80 10/17/2015 [facility] Temperature Oral (F) 98.0 F 10/17/2015 [...] 06/11/2015 [facility] Diastolic (mm Hg) 60 06/11/2015 [facility] Temperature Oral (F) 98.0 F 06/11/2015 [facility] Heart Rate 66 06/11/2015 [facility] Respitory Rate 18 06/11/2015 [facility] Systolic (mm Hg) 115 06/11/2015 [facility] Diastolic (mm Hg) 57 06/11/2015 [facility] Temperature Oral (F) 98.0 F 06/11/2015 [facility] Weight 95.455 06/11/2015 [facility] Systolic (mm Hg) 117 06/11/2015 [facility] Diastolic (mm Hg) 79 06/11/2015 [facility] Heart Rate 80 06/11/2015 [facility] Respitory Rate 18 06/11/2015 [facility] Weight 97.727 05/14/2015 [facility] BMI Calculated 39.41 05/14/2015 [facility] Respitory Rate 16 05/14/2015 [facility] Heart Rate 70 05/14/2015 [facility] Systolic (mm Hg) 119 05/14/2015 [facility] Diastolic (mm Hg) 79 05/14/2015 [facility] Temperature Oral (F) 98.5 F 05/14/2015 [facility] Height 157.48 cm 05/14/2015 [facility] Respitory Rate 27 04/21/2015 [facility] Temperature Oral (F) 98.0 F 04/21/2015 [...] Rate 19 04/19/2015 [facility] Weight 97.727 04/19/2015 [facility] Temperature Oral (F) 98.4 F 04/19/2015 [facility] Height 157.48 cm 04/19/2015 [facility] Heart Rate 67 04/19/2015 [facility] Respitory Rate 18 04/19/2015 [facility] Systolic (mm Hg) 143 04/19/2015 [facility] Diastolic (mm Hg) 76 04/19/2015 [facility] BMI Calculated 39.41 04/19/2015 [facility] Respitory Rate 22 03/17/2015 [facility] Heart Rate 80 03/17/2015 [facility] Systolic (mm Hg) 122 03/17/2015 [facility] Diastolic (mm Hg) 80 03/17/2015 [facility] Height 157.48 cm 03/17/2015 [facility] BMI Calculated 32.99 03/17/2015 [facility] Temperature Oral (F) 98.6 F 03/17/2015 [facility] Weight 81.818 03/17/2015 [facility] Heart Rate 70 03/10/2015 [facility] Systolic (mm Hg) 119 03/10/2015 [facility] Diastolic (mm Hg) 79 03/10/2015 [facility] Respitory Rate 20 03/10/2015 [facility] Temperature Oral (F) 97.9 F 03/10/2015 [facility] Heart Rate 66 03/09/2015 [facility] Respitory Rate 18 03/09/2015 [facility] Systolic (mm Hg) 109 03/09/2015 [facility] Diastolic (mm Hg) 69 03/09/2015 [facility] BMI Calculated 40.32 03/09/2015 [facility] Weight 100 03/09/2015 [facility] Height 157.48 cm 03/09/2015 [facility] Heart Rate 64 03/09/2015 [facility] Respitory [...] 71 11/04/2014 [facility] Respitory Rate 18 11/04/2014 [facility] Heart Rate 58 11/04/2014 [facility] Height 160.02 cm 11/04/2014 [facility] BMI Calculated 38.17 11/04/2014 [facility] Weight 97.727 11/04/2014 [facility] Temperature Oral (F) 98.3 F 10/30/2014 [facility] Systolic (mm Hg) 102 10/30/2014 [facility] Diastolic (mm Hg) 63 10/30/2014 [facility] Respitory Rate 18 10/30/2014 [facility] Heart Rate 66 10/30/2014 [facility] Systolic (mm Hg) 111 10/30/2014 [facility] Diastolic (mm Hg) 76 10/30/2014 [facility] Heart Rate 84 10/30/2014 [facility] Respitory Rate 18 10/30/2014 [facility] Temperature Oral (F) 99.0 F 10/30/2014 [facility] Height 160.02 cm 10/30/2014 [facility] BMI Calculated 38.17 10/30/2014 [facility] Weight 97.727 10/30/2014 [facility] Respitory Rate 18 06/23/2014 [facility] Heart Rate 63 06/23/2014 [facility] Temperature Oral (F) 98.2 F 06/23/2014 [...] 06/10/2014 [facility] Systolic (mm Hg) 122 06/10/2014 [facility] Temperature Oral (F) 98.0 F 06/10/2014 [facility] Heart Rate 88 06/10/2014 [facility] Respitory Rate 18 06/10/2014 [facility] Respitory Rate 20 06/10/2014 [facility] Weight 97.727 06/10/2014 [facility] Heart Rate 91 06/10/2014 [facility] Diastolic (mm Hg) 80 06/10/2014 [facility] Systolic (mm Hg) 124 06/10/2014 [facility] Temperature Oral (F) 98.1 F 06/10/2014 [...] 10/16/2011 [facility] Systolic (mm Hg) 110 10/16/2011 [facility] Heart Rate 71 10/16/2011 [facility] Respitory Rate 18 10/16/2011 [facility] Temperature Oral (F) 98.3 F 10/16/2011 [facility] Temperature Oral (F) 98.6 F 10/15/2011 [facility] Respitory Rate 18 10/15/2011 [facility] Heart Rate 68 10/15/2011 [facility] Diastolic (mm Hg) 60 10/15/2011 [facility] Systolic (mm Hg) 114 10/15/2011 [facility] Weight 90.909 10/15/2011 [facility] Height 157.48 cm 10/15/2011 [facility] Heart Rate 65 10/15/2011 [facility] Diastolic (mm Hg) 75 10/15/2011 [facility] Temperature Oral (F) 98.1 F 10/15/2011 [facility] Respitory Rate 18 10/15/2011 [facility] Systolic (mm Hg) 112 10/15/2011 [facility] Temperature Oral (F) 98.4 F 08/02/2011 [facility] Heart Rate 68.0 08/02/2011 [facility] Diastolic (mm Hg) 70.0 08/02/2011 [facility] Respitory Rate 18.0 08/02/2011 [facility] Systolic (mm Hg) 118.0 08/02/2011 [facility] Weight 94.091 08/02/2011 [facility] Height 160.02 cm 08/02/2011 [facility] Encounters Location Location Details Encounter Type Encounter Number Reason For Visit Attending Provider ADM Date DC Date Status Source [facility] [id number] ARTEMIO CAROLINA 08/02/2011 08/02/2011 [facility] [id number] NADIM CHRISTIAN 10/15/2011 10/15/2011 [facility] [id number] HEDY HORAN 11/09/2011 11/09/2011 [facility] [id number] JUSTINA COHEN 11/10/2011 11/10/2011 [facility] [id number] NADIM CHRISTIAN 04/16/2012 04/16/2012 [facility] [id number] DREW FUNG 04/22/2012 04/22/2012 [facility] [id number] ALFONSO SAAVEDRA 07/08/2012 07/08/2012 Discharged [facility] [id number] 06 Alfonso Zaragoza 06/10/2014 06/10/2014 [facility] [id number] Dat Elkins 06/23/2014 06/23/2014 [facility] [id number] Nadim Gnosticist 10/30/2014 10/30/2014 [facility] [id number] Nadim Gnosticist 11/04/2014 11/04/2014 [facility] [id number] Artemio Gonzales 03/09/2015 03/10/2015 [facility] [id number] Michelle Lorenzo 03/17/2015 03/17/2015 [facility] [id number] 12 Michelle Wellerowole 04/19/2015 04/19/2015 [facility] [id number] 13 Laurel Cottonsamm 04/21/2015 04/21/2015 [facility] [id number] Axel ManzoRuffin 05/14/2015 05/14/2015 [facility] [id number] 15 Daly Sreekanth 06/11/2015 06/11/2015 [facility] [id number] Tanvir Carrillo 09/21/2015 09/21/2015 [facility] [id number] 18 Sunil Eason 10/17/2015 10/17/2015 [facility] [id number] 19 Tanvir Carrillo 11/10/2015 11/10/2015 [facility] Inpatient [id number] Willie Lopez 12/02/2015 12/05/2015 [facility] lab results [id number] 12/09/2015 12/09/2015 [facility] [id number] Nadim Gnosticist 03/21/2016 03/22/2016 [facility] Emergency [id number] Janey Bailey 04/19/2016 04/19/2016 [facility] Emergency [id number] Priti Main 04/20/2016 04/20/2016 [facility] Emergency [id number] Nadim Gnosticist 05/25/2016 05/25/2016 [facility] Emergency [id number] Ángelamurray Gloria 06/19/2016 06/19/2016 [facility] Emergency [id number] Demetrio De Santiago 06/19/2016 06/20/2016 [facility] Emergency [id number] Ángela Akuhelder 07/07/2016 07/08/2016 [facility] Emergency [id number] Kate Beal 07/10/2016 07/10/2016 [facility] Emergency [id number] Priti Main 07/13/2016 07/13/2016 [facility] Emergency [id number] Michelle Lorenzo 09/16/2016 09/17/2016 [facility] Emergency [id number] Nemo Santiago 09/21/2016 09/21/2016 [facility] Emergency [id number] Francisco De Leon 10/24/2016 10/24/2016 [facility] Observation [id number] Yolanda Plata 07/30/2017 07/31/2017 [facility] TH [id number] OVARIAN CYST NON PHYSICIAN Cancel [facility] Outpatient [id number] OVARIAN CYST ARMINDA LENNOX Cancel [facility] Procedures Procedure Code Date Perfomer Comments Source Cholecystectomy [id number] [facility] D&C - Dilatation and curettage [id number] [facility] [id number] [facility] Assessment and Plan Assessment and [...] UIBC 333 Vitamin B12 Lvl 443 12/05/2015 [facility] No Data Provided for This Section Social History Social History Date Source Social History TypeResponse Alcohol Current, Type Beer, Wine, Liquor. Frequency: 1-2 times per month. Smoking Status Former smoker; Previous treatment: None; Exposure to Tobacco Smoke None; Cigarette Smoking Last 365 Days No; Reg Smoking Cessation Counseling No 12/03/2015 [facility] Social History TypeResponse Alcohol Current, Type Beer, Wine, Liquor. Frequency: 1-2 times per month. Smoking Status Former smoker; Previous treatment: None; Exposure to Tobacco Smoke None; Cigarette Smoking Last 365 Days No; Reg Smoking Cessation Counseling No 12/03/2015 [facility] Social History TypeResponse Alcohol Current, Type Beer, Wine, Liquor. Frequency: 1-2 times per month. 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 Status , Is croatian your prim bradley language? Yes Sep 29, [...]
--- OUTSIDE RECORDS SUMMARY | 2020-02-02 15:50 | XMS REPORT ---
Author Author [facility] t Organization [facility] t Address [address] [facility] [address] [place] [address] Phone Unavailable Care Team Providers Care Manager Global Name Role Phone MD SHERRY HOLLOWAY MD PCP [phone] [address] LOZOYA Attphys Unavailable Zita SALAS Attphys Unavailable Pallavi LLANOS Attphys Unavailable Yolanda Plata Attphys Francisco De Leon Attphys JasminLaura tolliver Nemo Attphys Vaishali Lorenzo Michelle Attphys Alexsandra Main Priti Attphys Karen Ventura Kate Attphys Nichole Gloria Amarachi Attphys [phone] Chayo De Santiago Attphys Gregg Richardson Nadmckenzie Attphys BaileyStevie Janey Attphys Pallavi Lopez Attphys Sravan Carrillo Attphys Sunil Eason Attphys Daly Stack Attphys RuffinMaged lima Attphys [phone] Laurel Sim Attphys Lety Gonzales Attphys Roque Elkins Attphys Dylan Zaragoza Attphys Yolanda Plata Admphys JessicaPallavi madera Admphys Payers Payer Name Policy Type Policy Number Effective Date Expiration Date Pallavi fried [facility] [id number] C [facility] [id number] C [facility] [id number] C [facility] Advance Directives Directive Decision Effective Date Termination Date Comments Sour ce Yes N/A [facility] Problems Condition Name Condition Details Condition Category Status Onset Date Resolution Date Last Treatment Date Treating Clinician Comments Source ABD PAIN-11 WEEKS ABD PAIN-11 WEEKS Active 10/24/2016 [facility] Diagnosis Active 2016-10-24 00:00:00 2016-10-24 11:07:00 [facility] ABDOMINAL PAIN ABDO BALTA PAIN Active 09/21/2016 [facility] Diagnosis Active 2016-09-21 00:00:00 2016-10 12:48:00 [facility] OB 6 WKS/VAG BLEEDING OB 6 WKS/VAG BLEEDING Active 09/16/2016 [facility] Diagnosis Active 2016-09-16 00:00:00 2016-09-29 14:12: 00 [facility] DIZZINESS DIZZ INESS Active 07/12/2016 [facility] Diagnosis Active 2016-07-12 00:00:00 2016-07-13 01:18:00 [facility] DIZZY/CHEST PAIN DIZZ Y/CHEST PAIN Active 07/07/2016 [facility] Diagnosis Active 2016-07-07 00:00:00 2016-07-07 17:50:00 [facility] ASTMAH ASTM AH Active 06/19/2016 [facility] Diagnosis Active 2016-06-19 00:00:00 2016-06-19 17:36:00 [facility] SHORTNESS OF BREATH SHOR TNESS OF BREATH Active 06/18/2016 [facility] Diagnosis Active 2016-06-18 00:00:00 2016-06-18 21:15:00 [facility] HEAT EXHAUSTION HEAT EXHAUSTION Active 04/18/2016 [facility] Diagnosis Active 2016-04-18 00:00:00 2016-04-18 20:41:00 [facility] ABD PAIN ABD PAIN Active 03/21/2016 [facility] Diagnosis Active 2016-03-21 00:00:00 2016-03-21 18:09:00 [facility] INTRACTABLE ABDOMINAL PAIN, GBW THICKENI INTRACTABLE ABDOMINAL PAIN, GBW THICKENI Active 12/02/2015 [facility] Diagnosis A ctive 2015-12-02 00:00:00 2015-12-06 15:41:00 [facility] STOMACH PAIN STOM ACH PAIN Active 12/02/2015 [facility] Diagnosis Active 2015-12-02 00:00:00 2015-12-02 15:07:00 [facility] EXPOSURE EXPO SURE Active 10/16/2015 [facility] Diagnosis Active 2015-10-16 00:00:00 2015-10-16 23:44:00 [facility] PELVIC PAIN PELV IC PAIN Active 10/06/2015 [facility] Active 2015-10-06 00:00:00 2015-12-08 15:56:00 [facility] SOB SOB Active 09/21/2015 [facility] Active 2015-09-21 00:00:00 2015-09-21 10:18:00 [facility] FEVER FEVE R Active 05/14/2015 [facility] Active 2015-05-14 00:00:00 2015-05-14 09:09:00 [facility] SYMPTOMS/ECTOPIC PREG SYMP TOMS/ECTOPIC PREG Active 04/18/2015 [facility] Diagnosis Active 2015-04-18 00:00:00 2015-04-18 23:19: 00 [facility] SYNCOPE SYNC OPE Active 03/16/2015 [facility] Active 2015-03-16 00:00:00 2015-03-17 05:22:00 [facility] DIARRHEA DIAR CINTHYA Active 10/30/2014 [facility] Diagnosis Active 2014-10-30 00:00:00 2014-10-30 08:52:00 [facility] WEAKNESS/CHEST PAIN WEAK NESS/CHEST PAIN Active 06/23/2014 [facility] Diagnosis Active 2014-06-23 00:00:00 2014-06-23 09:43:00 [facility] DIFFICULTY BREATHING DIFF ICULTY BREATHING Active 06/10/2014 [facility] Diagnosis Active 2014-06-10 03:50:00 2014-06-10 06:13:00 [facility] ABD PAIN/ LOWER BACK PAIN ABD PAIN/ LOWER BACK PAIN Active 07/08/2012 [facility] Diagnosis Active 2012-07-08 20:00:00 2012-07-09 00:46:00 [facility] RIGHT SIDEPAIN RIGH T SIDEPAIN Active 04/22/2012 [facility] Diagnosis Active 2012-04-22 00:00:00 2012-04-22 09:25:00 [facility] ABD PAIN-LOWER ABD PAIN-LOWER Active 04/16/2012 [facility] Diagnosis Active 2012-04-16 00:00:00 2012-04-16 07:54:00 [facility] OVARIAN CYST OVAR MELISSA CYST Active 04/15/2012 [facility] Diagnosis Active 2012-04-15 00:00:00 2012-07-19 15:29:[address] [facility] [address], [facility] ADBOMINAL PAIN ADBO BALTA PAIN Active 10/15/2011 [facility] Diagnosis Active 2011-10-15 00:00:00 2011-10-15 14:00:00 [facility] TROUBLE BREATHING TROU BLE BREATHING Active 08/02/2011 [facility] Diagnosis Active 2011-08-02 00:00:00 2011-08-02 10:00:00 [facility] Traumatic ecchymosis of right lower leg Problem [facility] Pain of right lower extremity Problem [facility] Lower extremity pain, posterior Problem [facility] Asthma (disorder) Asth ma (disorder) Active Problem 08/02/2017 [facility] Problem Active 2017-08-02 04:17:06 [facility], [facility], [facility] Bronchitis (disorder) Bron chitis (disorder) Resolved Problem 08/02/2017 [facility] Problem Reso lved 2017-08-02 04:17:06 [facility] , [facility], [facility] Diabetes mellitus (disorder) D iabetes mellitus (disorder) Resolved Problem 08/02/2017 [facility] Problem Resolved 2017-08-02 04:17:06 [facility], [facility], [facility] Diverticular disease (disorder) Diverticular disease (disorder) Resolved Problem 08/02/2017 [facility] Problem Resolved 2017-08-02 04:17:06 [facility], [facility], [facility] Ectopic (disorder) E ctopic (disorder) Resolved Problem 08/02/2017 [facility] Problem Resolved 2017-08-02 04:17:06 [facility], [facility], [facility] Depressive disorder (disorder) Depressive disorder (disorder) Resolved Problem 08/02/2017 [facility] Problem Resolved 2017-08-02 04:17:06 [facility], [facility], [facility] Obesity Obes ity Active Problem 12/10/2015 [facility] Problem Active 2015-12-10 02:16:59 [facility] Asthma Asth ma Active Problem 12/10/2015 [facility] Problem Active 2015-12-10 02:16:59 [facility] Type 2 diabetes mellitus without complications Type 2 diabetes mellitus without complications Active Problem 12/10/2015 [facility] Problem Active 2015-12-10 02:16:59 [facility] Fatty liver Fatt y liver Active Problem 12/10/2015 [facility] Problem Active 2 02:16:59 [facility] GENERALIZED ABDOMINAL PAIN GEN ERALIZED ABDOMINAL PAIN Active [facility] Diagnosis Active 2015-12-06 15:41:00 [facility] Chest pain, unspecified Ches t pain, unspecified 07/30/2017 08/02/2017 [facility] Problem 2017-07-30 06:00:00 08-02 04:17:06 2017-08-02 04:17:06 [facility] Palpitations Palp itations 07/30/2017 08/02/2017 [facility] Problem 2017-07-30 06:00:00 2017-08-02 04:17:06 2017-08-02 04:17:06 [facility] Discharge Diagnosis: Acute UTI Discharge Diagnosis: Acute UTI 09/21/2016 09/24/2016 [facility] Problem 2016 06:00:00 2016-09-24 05:37:32 2016-09-24 05:37:32 [facility] Discharge Diagnosis: Abdominal pain affecting pregnanc y Discharge Diagnosis: Abdominal pain affecting 09/21/2016 09/24/2016 [facility] Problem 2016-09-21 06:00:00 2016-09-24 05:37:32 2016-09 05:37:32 [facility] Discharge Diagnosis: First trimester bleeding Discharge Diagnosis: First trimester bleeding 09/16/2016 09/19/2016 [facility] Problem 2016-09-16 06:00:00 2016-09-19 02:19:49 2016-09-19 02:19:49 [facility] Discharge Diagnosis: Threatened miscarriage Discharge Diagnosis: Threatened miscarriage 09/16/2016 09/19/2016 [facility] Problem 2016-09-16 06:00:00 2016-09-19 02:19:49 2016-09-19 02:19:49 [facility] Discharge Diagnosis: Hyperglycemia Discharge Diagnosis: Hyperglycemia 07/13/2016 07/16/2016 [facility] Problem 2016-07-13 05:00:00 2016-07-16 03:26:06 2016-07-16 03:26:06 [facility] Discharge Diagnosis: Atypical chest pain Discharge Diagnosis: Atypical chest pain 07/13/2016 07/16/2016 [facility] Problem 2016-07-13 05:00:00 2016-07-16 03:26:06 2016-07-16 03:26:06 [facility] Discharge Diagnosis: Acute lower UTI (urinary tract in fection) Discharge Diagnosis: Acute lower UTI (urinary tract infection) 07/13/2016 07/16/2016 [facility] Problem 2016-07-13 05:00:00 2015 03:26:06 2016-07-16 03:26:06 [facility] Discharge Diagnosis: Dizziness Discharge Diagnosis: Dizziness 07/13/2016 07/16/2016 [facility] Problem 2015 05:00:00 2016-07-16 03:26:06 2016-07-16 03:26:06 [facility] Discharge Diagnosis: Chest pain Discharge Diagnosis: Chest pain 07/07/2016 07/10/2016 [facility] Problem 201 02-18-28 05:00:00 2016-07-10 04:51:17 2016-07-10 04:51:17 [facility] Discharge Diagnosis: Near syncope Discharge Diagnosis: Near syncope 07/07/2016 07/10/2016 [facility] Problem 2 05:00:00 2016-07-10 04:51:17 2016-07-10 04:51:17 [facility] Discharge Diagnosis: Anemia Di scharge Diagnosis: Anemia 07/07/2016 07/10/2016 [facility] Problem 2016-07-07 05:0 0:00 2016-07-10 04:51:17 2016-07-10 04:51:17 [facility] Discharge Diagnosis: Acute hypokalemia Discharge Diagnosis: Acute hypokalemia 07/07/2016 07/10/2016 [facility] Problem 2016-07-07 05:00:00 2016-07-10 04:51:17 2016-07-10 04:51:17 [facility] Discharge Diagnosis: Shortness of breath Discharge Diagnosis: Shortness of breath 06/19/2016 06/22/2016 [facility] Problem 2016-06-19 05:00:00 2016-06-22 03:23:03 2016-06-22 03:23:03 [facility] Discharge Diagnosis: Anxiety D ischarge Diagnosis: Anxiety 06/18/2016 06/21/2016 [facility] Problem 2015- 0-09 05:00:00 2016-06-21 00:37:01 2016-06-21 00:37:01 [facility] Discharge Diagnosis: Asthma Di scharge Diagnosis: Asthma 06/18/2016 06/21/2016 [facility] Problem 2016-06-18 05:0 0:00 2016-06-21 00:37:01 2016-06-21 00:37:01 [facility] Discharge Diagnosis: Urinary tract infection, site not specified Discharge Diagnosis: Urinary tract infection, site not specified 05/25/2016 05/28/2016 [facility] Problem 2016-05-25 05:00:00 2015 03:34:08 2016-05-28 03:34:08 [facility] Discharge Diagnosis: UTI (urinary tract infection) Discharge Diagnosis: UTI (urinary tract infection) 04/20/2016 04/23/2016 [facility] Problem 2016-04-20 05:00:00 2016-04-23 03:24:30 2016-04 03:24:30 [facility] Discharge Diagnosis: Heat exhaustion Discharge Diagnosis: Heat exhaustion 04/20/2016 04/23/2016 [facility] Problem 2016-04-20 05:00:00 2016-04-23 03:24:30 2016-04-23 03:24:30 [facility] Discharge Diagnosis: Dehydration Discharge Diagnosis: Dehydration 04/18/2016 04/22/2016 [facility] Problem 20 25-04-09 05:00:00 2016-04-22 03:34:09 2016-04-22 03:34:09 [facility] Discharge Diagnosis: Heat exhaustion, unspecified, ini tial encounter Discharge Diagnosis: Heat exhaustion, unspecified, initial encounter 04/18/2016 04/22/2016 [facility] Problem 2016-04-18 05: 00:00 2016-04-22 03:34:09 2016-04-22 03:34:09 [facility] Discharge Diagnosis: Lower abdominal pain, unspecified Discharge Diagnosis: Lower abdominal pain, unspecified 11/10/2015 11/13/2015 [facility] Problem 2015-11-10 06:00:00 2015-11-13 04:43:08 2015-11 04:43:08 [facility] Discharge Diagnosis: Acute lower UTI Discharge Diagnosis: Acute lower UTI 06/11/2015 06/14/2015 [facility] Problem 2015-06-11 05:00:00 2015-06-14 05:42:41 2015-06-14 05:42:41 [facility] Discharge Diagnosis: Pharyngitis, acute Discharge Diagnosis: Pharyngitis, acute 05/14/2015 05/17/2015 [facility] Problem 2015-05-14 05:00:00 2015-05-17 09:33:20 2015-05-17 09:33:20 [facility] Discharge Diagnosis: Abdominal pain Discharge Diagnosis: Abdominal pain 04/21/2015 04/24/2015 [facility] Problem 2015-04-21 05:00:00 2015-04-24 06:43:49 2015-04-24 06:43:49 [facility] Discharge Diagnosis: Bacterial vaginosis Discharge Diagnosis: Bacterial vaginosis 04/19/2015 04/22/2015 [facility] Problem 2015-04-19 05:00:00 2015-04-22 07:19:57 2015-04-22 07:19:57 [facility] Discharge Diagnosis: Urinary tract infection Discharge Diagnosis: Urinary tract infection 04/19/2015 04/22/2015 [facility] Problem 2015-04-19 05:00:00 2015-04-22 07:19:57 2015-04-22 07:19:57 [facility] Discharge Diagnosis: Pelvic pain in female Discharge Diagnosis: Pelvic pain in female 04/19/2015 04/22/2015 [facility] Problem 2015-04-19 05:00:00 2015-04-22 07:19:57 2015-04-22 07:19:57 [facility] Discharge Diagnosis: Acute pelvic pain, female Discharge Diagnosis: Acute pelvic pain, female 03/09/2015 03/13/2015 [facility] Problem 2015-03-09 05:00:00 2015-03-13 03:22:43 2015-03-13 03:22:43 [facility] Discharge Diagnosis: Acute pelvic inflammatory disease Discharge Diagnosis: Acute pelvic inflammatory disease 03/09/2015 03/13/2015 [facility] Problem 2015-03-09 05:00:00 2015-03-13 03:22:43 2015-03 03:22:43 [facility] Discharge Diagnosis: Dizziness Discharge Diagnosis: Dizziness 03/09/2015 03/13/2015 [facility] Problem 2014 05:00:00 2015-03-13 03:22:43 2015-03-13 03:22:43 [facility] Discharge Diagnosis: Acute back pain Discharge Diagnosis: Acute back pain 11/04/2014 11/06/2014 [facility] Problem 2014-11-04 06:00:00 2014-11-06 17:47:44 2014-11-06 17:47:44 [facility] Discharge Diagnosis: Nausea Di scharge Diagnosis: Nausea 11/04/2014 11/06/2014 [facility] Problem 2014-11-04 06:0 0:00 2014-11-06 17:47:44 2014-11-06 17:47:44 [facility] Discharge Diagnosis: UTI (lower urinary tract infectio n) Discharge Diagnosis: UTI (lower urinary tract infection) 10/30/2014 11/01/2014 [facility] Problem 2014-10-30 06:00:00 2014-11-01 15:14:44 2014-10 15:14:44 [facility] Discharge Diagnosis: Diarrhea Discharge Diagnosis: Diarrhea 10/30/2014 11/01/2014 [facility] Problem 10-30 06:00:00 2014-11-01 15:14:44 2014-11-01 15:14:44 [facility] Discharge Diagnosis: Near syncope Discharge Diagnosis: Near syncope 06/23/2014 06/26/2014 [facility] Problem 2 05:00:00 2014-06-26 04:50:02 2014-06-26 04:50:02 [facility] Discharge Diagnosis: Acute lower UTI Discharge Diagnosis: Acute lower UTI 06/23/2014 06/26/2014 [facility] Problem 2014-06-23 05:00:00 2014-06-26 04:50:02 2014-06-26 04:50:02 [facility] Discharge Diagnosis: Acute otitis externa Discharge Diagnosis: Acute otitis externa 06/23/2014 06/26/2014 [facility] Problem 2014-06-23 05:00:00 2014-06-26 04:50:02 2014-06-26 04:50:02 [facility] Discharge Diagnosis: Asthma exacerbation Discharge Diagnosis: Asthma exacerbation 06/10/2014 06/13/2014 [facility] Problem 2014-06-10 05:00:00 2014-06-13 01:08:07 2014-06-13 01:08:07 [facility] Discharge Diagnosis: Upper respiratory infection Discharge Diagnosis: Upper respiratory infection 06/10/2014 06/13/2014 [facility] Problem 2014-06-10 05:00:00 2014-06-13 01:08:07 2014-06 01:08:07 [facility] Allergies, Adverse Reactions, Alerts Allergy Name Allergy Type Status Severity Reaction(s) Onset Date Inacti ve Date Treating Clinician Comments Source Erythromycin base Allergy to substance Active 2019-12-15 00 :00:00 [facility] butorphanol tartrate DA Active SV 2019-03-11 00:00:00 [facility] nitrous oxide DA Active U 2019-03-11 00:00:00 [facility] hydrocodone DA Active SC 2019-03-11 00:00:00 [facility] aspirin DA Active SV 2019-03-11 00:00:00 [facility] ibuprofen DA Active MO 2019-03-11 00:00:00 [facility] erythromycin base DA Active SC 2019-03-11 00:00:00 [facility] ciprofloxacin DA Active SC 2019-03-11 00:00:00 [facility] promethazine DA Active SV 2019-03-11 00:00:00 [facility] aspirin DA Active SV 2017-07-20 00:00:00 [facility] ibuprofen DA Active MO 2017-07-10 00:00:00 [facility] butorphanol tartrate DA Active SV 2017-06-11 00:00:00 [facility] nitrous oxide DA Active U 2017-06-11 00:00:00 [facility] hydrocodone DA Active SC 2017-06-11 00:00:00 [facility] erythromycin base DA Active SC 2017-06-11 00:00:00 [facility] ciprofloxacin DA Active SC 2017-06-11 00:00:00 [facility] promethazine DA Active SV 2017-06-11 00:00:00 [facility] erythromycin erythromycin Active [facility] Phenergan Phenergan Active Alejandro rial [facility] Stadol Stadol Active [facility] predniSONE predniSONE Active [facility] aspirin aspirin Active [facility] nitrous oxide nitrous oxide Active [facility] HYDROcodone HYDROcodone Active [facility] ciprofloxacin ciprofloxacin Active [facility] Social History Social Habit Start Date Stop Date Quantity Comments Source Social History 2015-12-03 02:12:26 2015-12-03 02:12:26 [facility] Occupation: 2015-09-29 00:00:00 2015-09-29 00:00:00 [facility] Sex Assigned At 1985 00:00:00 1985 00:00:00 Female [facility] Medications Ordered Medication Name Filled Medication Name Start Date Stop Da te Current Medication? Ordering Clinician Indication Dosage Frequency Signature (SIG) Comments Components Source Fluconazole (Diflucan) 150 Mg TABLET Fluconazole (Diflucan) 150 Mg TABLET 2020-01-05 19:14:00 Yes 150 [facility] Metformin Hcl Metformin Hcl 2018-06-16 16:22:00 Yes 1000 [facility] Butalbital/Aspirin/Caffeine (Fiorinal 50-325-40 Mg Cap dillon) 1 Each CAPSULE Butalbital/Aspirin/Caffeine (Fiorinal 50-325-40 Mg Capsule) 1 Each CAPSULE 2018-06-16 14:47:00 Yes 2 [facility] ferrous sulfate 2017-07-31 15:00:00 No Notes: Give with food. "Do Not Crush" [facility] Aspirin 325 MG Enteric Coated Tablet 2017-07-31 15:00:00 No Notes: (Do Not Crush) Do not crush or chew. [facility] Metformin 2017-07-31 15:00:00 No Notes: (Same as: Glucophage) Take with meal [facility] Saline Flush 0.9% 2017-07-31 03:00:00 No Notes: (Same as: BD Posiflush) [facility] Alprazolam 0.25 MG Oral Tablet [Xanax] 2017-07-30 23:54:00 No Notes: With food or milk (Same as: Xanax) [facility] Insulin Lispro 2017-07-30 18:09:00 No Notes: Roll in palms of hands gently; Do not shake `vigorously. (Same as: Humalog ) "Single Patient Use Only " WASTE: F/P - Black; E - Municipal Trash Bin Stable for 28 days at room temperature. Expires in days from Date [facility] Glucagon 2017-07-30 18:09:00 No 1 mg, Route: IM, Drug form: PDR/INJ, PRN, Dosing Weight 90, kg, PRN Blood Glucose Results, Start date: 07/30/17 12:09:00 [employer], Duration: 30 day, Stop date: 08/29/17 12:08:00 [employer] [facility] Dextrose 50% Syringe 2017-07-30 18:09:00 No 25 gm, 50 mL, Route: IVP, Drug Form: INJ, Dosing Weight 90, kg, PRN, PRN Blood Glucose Results, Start date: 07/30/17 12:09:00 [employer], Duration: 30 day, Stop date: 08/29/17 12:08:00 [employer] [facility] Saline Flush 0.9% 2017-07-30 17:57:00 No Notes: (Same as: BD Posiflush) [facility] Morphine 2017-07-30 17:57:00 No Not es: (Same as:MORPhine Sulfate) [facility] Nitroglycerin 2017-07-30 17:57:00 No Notes: (Same as:Nitroquick, Nitrostat) "Do Not Crush" Sublingual tablet [facility] Ondansetron 2017-07-30 17:57:00 No Notes: (Same as: Lionel) MEDICATION WASTE Product Size: 4 mg Product Wasted: _0__ mg [facility] BD Normal Saline Flush 2017-07-30 15:18:00 No Notes: (Same as: BD Posiflush) [facility] Saline Flush 0.9% 2017-07-30 15:11:00 No Notes: (Same as: BD Posiflush) [facility] Sodium Chloride 0.9% (Bolus) IV 2017-07-30 15:11:00 No 1,000 mL, 1000 ml/hr, Infuse Over: 1 hr, Route: IV, 1,000, Drug form: INJ, ONCE, Priority: STAT, Dosing Weight 90 kg, Start date: 07/30/17 9:11:00 [employer], Stop date: 07/30/17 9:11:00 [employer] [facility] Saline Flush 0.9% 2016-10-24 06:48:00 No Notes: (Same as: BD Posiflush) [facility] Tylenol 2016-09-21 20:28:00 No Notes: Do not exceed 4 gm/day. (Same as: Tylenol) [facility] Ceftriaxone 2016-09-21 19:46:00 No Notes: (Same As: Rocephin). Use with 100 mL NS and infuse over 30 min MEDICATION WASTE Product Size: 1000 mg Product Wasted: ___ mg [facility] Albuterol 0.833 MG/ML / Ipratropium [place] 0.167 MG/ML Inha lant Solution 2016-09-21 18:44:00 No Notes: (Same as: Wesly lima) [facility] Sodium Chloride 0.154 MEQ/ML Injectable Solution 2016-09-21 18:4 3:00 No 1,000 mL, 1,000 ml/hr, Infus e Over: 1 hr, Route: IV, 1,000, Drug form: INJ, ONCE, Priority: STAT, Dosing Weight 93.636 kg, Start date: 09/21/16 12:43:00 [employer], Duration: 1 doses or times, Stop date: 09/21/16 12:43:00 [employer] [facility] Saline Flush 0.9% 2016-09-21 18:43:00 No Notes: (Same as: BD Posiflush) [facility] Cephalexin 500 MG Oral Capsule [Keflex] 2016-09-16 23:54:00 Yes 500 mg = 1 cap, PO, BID, X 7 day, # 14 cap, 0 Refill(s) [facility] Sodium Chloride 0.154 MEQ/ML Injectable Solution 2016-09-16 21:4 1:00 No 1,000 mL, Infuse Over: 1 hr, Route: IV, ONCE, Priority: STAT, Dosing Weight 94.545 kg, Start date: 09/16/16 15:41:00 [employer], Duration: 1 doses or times, Stop date: 09/16/16 15:41:00 [employer] [facility] Nitrofurantoin 100 MG Oral Capsule [Macrobid] 2016-07-13 07:48:0 0 Yes 100 mg = 1 cap, PO, BID, X 3 day, # 6 cap, 0 Refill(s) [facility] Ativan 2016-07-13 06:39:00 No 0.5 mg, Route: IVP, Drug form: INJ, ONCE, Dosing Weight 97.727, kg, Priority: STAT, Start date: 07/13/16 1:39:00 CDT, Stop date: 07/13/16 1:39:00 CDT [facility] Sodium Chloride 0.154 MEQ/ML Injectable Solution 2016-07-13 06:3 9:00 No 1,000 mL, 2,000 ml/hr, Infus e Over: 30 minutes, Route: IV, ONCE, Priority: STAT, Dosing Weight 97.727 kg, Start date: 07/13/16 1:39:00 CDT, Duration: 1 doses or times, Stop date: 07/13/16 1:39:00 CDT [facility] Saline Flush 0.9% 2016-07-13 04:59:00 No Notes: (Same as: BD Posiflush) [facility] ferrous sulfate 325 mg oral enteric coated tablet 2016-07-07 23:03:00 Yes 325 mg = 1 tab, PO, TID, Start with 1 tab daily x 3 days, advance as tolerate, use stool softners and laxatives as needed for constipation, # 90 tab, 3 Refill(s) [facility] Sodium Chloride 0.154 MEQ/ML Injectable Solution 2016-07-07 22:5 5:00 No 500 mL, 500 ml/hr, Infuse Ov er: 1 hr, Route: IV, ONCE, Priority: STAT, Dosing Weight 97.727 kg, Start date: 07/07/16 17:55:00 CDT, Duration: 1 doses or times, Stop date: 07/07/16 17:55:00 CDT [facility] potassium chloride 2016-07-07 22:47:00 No 40 mEq, Route: PO, Drug form: ERTAB, ONCE, Dosing Weight 97.727, kg, Priority: STAT, Start date: 07/07/16 17:47:00 CDT, Stop date: 07/07/16 17:47:00 CDT [facility] Saline Flush 0.9% 2016-07-07 21:52:00 No Notes: (Same as: BD Posiflush) [facility] Albuterol 0.833 MG/ML / Ipratropium [place] 0.167 MG/ML Inha lant Solution 2016-06-20 00:22:00 No Notes: (Same as: Wesly lima) [facility] Albuterol 0.833 MG/ML / Ipratropium Brom dimple 0.167 MG/ML Inhalant Solution [DuoNeb] 2016-06-19 20:29:00 No Notes: (S lori as: Jeisononeb) [facility] Albuterol 0.833 MG/ML / Ipratropium [place] 0.167 MG/ML Inha lant Solution 2016-06-19 02:39:00 No Notes: (Same as: Wesly lima) [facility] Saline Flush 0.9% 2016-06-19 01:18:00 No Notes: (Same as: BD Posiflush) [facility] Nitrofurantoin 100 MG Oral Capsule [Macrobid] 2016-05-25 14:35:0 0 Yes 100 mg = 1 cap, PO, BID, X 10 day, # 20 cap, 0 Refill(s) [facility] Zofran 2016-05-25 13:36:00 No 4 mg, Route: IVP, Drug form: INJ, ONCE, Dosing Weight 97.727, kg, Priority: STAT, Start date: 05/25/16 8:36:00 CDT, Stop date: 05/25/16 8:36:00 CDT [facility] Sodium Chloride 0.154 MEQ/ML Injectable Solution 2016-05-25 13:0 7:00 No 1,000 mL, 1,000 ml/hr, Infus e Over: 1 hr, Route: IV, ONCE, Priority: STAT, Dosing Weight 97.727 kg, Start date: 05/25/16 8:07:00 CDT, Duration: 1 doses or times, Stop date: 05/25/16 8:07:00 CDT [facility] Cephalexin 500 MG Oral Capsule [Keflex] 2016-04-20 08:34:00 Yes 500 mg = 1 cap, PO, BID, X 7 day, # 14 cap, 0 Refill(s) [facility] Sodium Chloride 0.154 MEQ/ML Injectable Solution 2016-04-20 08:2 6:00 No 1,000 mL, 2,000 ml/hr, Infus e Over: 30 minutes, Route: IV, ONCE, Priority: STAT, Dosing Weight 100 kg, Start date: 04/20/16 3:26:00 CDT, Duration: 1 doses or times, Stop date: 04/20/16 3:26:00 CDT [facility] Zofran 2016-04-20 07:43:00 No 4 mg, Route: IVP, Drug form: INJ, ONCE, Dosing Weight 100, kg, Priority: STAT, Start date: 04/20/16 2:43:00 CDT, Stop date: 04/20/16 2:43:00 CDT [facility] Sodium Chloride 0.154 MEQ/ML Injectable Solution 2016-04-20 07:2 6:00 No 1,000 mL, 2,000 ml/hr, Infus e Over: 30 minutes, Route: IV, ONCE, Priority: STAT, Dosing Weight 100 kg, Start date: 04/20/16 2:26:00 CDT, Duration: 1 doses or times, Stop date: 04/20/16 2:26:00 CDT [facility] Ondansetron 2016-04-19 00:46:00 No Notes: (Same as: Lionel) MEDICATION WASTE Product Size: 4 mg Product Wasted: __0_ mg [facility] Saline Flush 0.9% 2016-04-19 00:46:00 No Notes: (Same as: BD Posiflush) [facility] Sodium Chloride 0.154 MEQ/ML Injectable Solution 2016-04-19 00:4 6:00 No 1,000 mL, 1000 ml/hr, Infuse Over: 1 hr, Route: IV, 1,000, Drug form: INJ, ONCE, Priority: STAT, Dosing Weight 97.727 kg, Start date: 04/18/16 19:46:00 CDT, Duration: 1 doses or times, Stop date: 04/18/16 19:46:00 CDT [facility] cephalexin 500 mg oral tablet 2016-03-22 00:24:00 Yes 500 mg = 1 tab, PO, TID, X 14 day, # 42 tab, 0 Refill(s) [facility] Ondansetron 4 MG Disintegrating Tablet [Zofran] 2016-03-22 00:24 :00 Yes 4 mg = 1 tab, PO, Q8H, PRN N ausea and Vomiting, Dissolve tab under tongue, X 5 day, # 15 tab, 0 Refill(s) [facility] st Tylenol 2016-03-21 22:37:00 No Notes: Do not exceed 4 gm/day. (Same as: Tylenol) [facility] Rocephin 2016-03-21 22:37:00 No Notes: (Same As: Rocephin). Use with 100 mL NS and infuse over 30 min MEDICATION WASTE Product Size: 1000 mg Product Wasted: _0_ mg [facility] Saline Flush 0.9% 2016-03-21 20:17:00 No Notes: (Same as: BD Posiflush) [facility] Sodium Chloride 0.154 MEQ/ML Injectable Solution 2016-03-21 20:1 7:00 No 1,000 mL, 2,000 ml/hr, Infus e Over: 30 minutes, Route: IV, 1,000, Drug form: INJ, ONCE, Priority: STAT, Dosing Weight 94.091 kg, Start date: 03/21/16 15:17:00 CDT, Duration: 1 doses or times, Stop date: 03/21/16 15:17:00 CDT [facility] Protonix 2015-12-05 14:00:00 No Notes: Tablet should not be chewed or crushed. (Same as: Protonix) [facility] Acetaminophen 300 MG / Codeine Phosphate 60 MG Oral Tablet [Tylenol with Codeine #4] 2015-12-04 16:06:00 Yes 1 tab, PO, Q6H, PRN pain, X 7 day, # 28 tab, 0 Refill(s) [facility] Metformin hydrochloride 500 MG Oral Tablet 2015-12-04 14:00:00 No Notes: (Same as: Glucophage) Take with meal [facility] Albuterol 0.833 MG/ML / Ipratropium [place] 0.167 MG/ML Inha lant Solution 2015-12-04 13:53:00 No Notes: (Same as: D uoneb) [facility] Zofran 2015-12-04 13:53:00 No Notes: (Same as: Zofran) MEDICATION WASTE Product Size: 4 mg Product Wasted: ___ mg [facility] Zosyn 2015-12-04 06:00:00 No Notes: (Same as: Zosyn) Dosing based on Piperacillin component MEDICATION WASTE Product Size: 3375 mg Product Wasted: ___ mg [facility] Saline Flush 0.9% 2015-12-04 04:53:00 No Notes: (Same as: BD Posiflush) [facility] Sodium Chloride 0.154 MEQ/ML Injectable Solution 2015-12-04 04:5 3:00 No 1,000 mL, Rate: 125 ml/hr, I nfuse over: 8 hr, Route: IV, Dosing Weight 94.091 kg, Total Volume: 1,000, Start date: 12/03/15 23:53:00, Duration: 30 day, Stop date: 01/02/16 23:52:00 [facility] Morphine 2015-12-04 04:53:00 No Not es: (Same as:MORPhine Sulfate) [facility] Ondansetron 2015-12-04 04:53:00 No Notes: (Same as: Zofran) MEDICATION WASTE Product Size: 4 mg Product Wasted: ___ mg [facility] Diphenhydramine 2015-12-04 03:06:00 No Notes: (Same as: Benadryl) [facility] Ondansetron 2015-12-04 03:06:00 No Notes: (Same as: Zofran) MEDICATION WASTE Product Size: 4 mg Product Wasted: ___ mg [facility] Promethazine 2015-12-04 03:06:00 No 6.25 mg, Route: IVPB, ONCE, Dosing Weight 94.091, kg, PRN Nausea & Vomiting, Start date: 12/03/15 22:06:00 [facility] Oxycodone 2015-12-04 03:06:00 No Notes: (Sa me as: Roxicodone) [facility] Hydromorphone 2015-12-04 03:06:00 No 0.5 mg, 0.5 mL, Route: IVP, Drug form: INJ, Q5Min, Dosing Weight 94.091, kg, PRN Pain Score 7-10, Start date: 12/03/15 22:06:00, Duration: 4 doses or times, Stop date: Limited # of times [facility] Fentanyl 2015-12-04 03:06:00 No Notes: (Same as: Sublimaze) Preservative free. [facility] Meperidine 2015-12-04 03:06:00 No Notes: (S lori As: Demerol) [facility] Flumazenil 2015-12-04 03:06:00 No Notes: (S lori as: Romazicon) [facility] Naloxone 2015-12-04 03:06:00 No Notes: Same as Narcan [facility] Albuterol 0.83 MG/ML Inhalant Solution 2015-12-04 03:06:00 No Notes: SEE RT DOCUMENTATION (Same as: Proventil) [facility] Hydromorphone 2015-12-04 03:03:00 No 1 mg, 1 mL, Route: IVP, Drug form: INJ, Q3H, Dosing Weight 94.091, kg, PRN Pain Score 4-6, Start date: 12/03/15 22:03:00, Duration: 30 day, Stop date: 01/02/16 22:02:00 [facility] Morphine 2015-12-04 03:03:00 No Not es: (Same as:MORPhine Sulfate) [facility] acetaminophen-codeine #3 2015-12-04 03:03:00 No Notes: Do not exceed 4gm/day of acetaminophen. (Same as: Tylenol with Codeine # 3) [facility] Ondansetron 2015-12-04 03:03:00 No Notes: (Same as: Lionel) MEDICATION WASTE Product Size: 4 mg Product Wasted: ___ mg [facility] Calcium Chloride 0.0014 MEQ/ML / Potassi um Chloride 0.004 MEQ/ML / Sodium Chloride 0.103 MEQ/ML / Sodium Lactate 0.028 MEQ/ML Injectable Solution 2015-12-04 03:03:00 No 1,000 mL, Rate: 75 ml/hr, Infuse over: 13.3 hr, Route: IV, Dosing Weight 94.091 kg, Total Volume: 1,000, Start date: 12/03/15 22:03:00, Duration: 30 day, Stop date: 01/02/16 22:02:00 [facility] dexamethasone (ANES) 2015-12-04 02:53:00 No Route: IV, Drug form: INJ, ONCE, Stop date: 12/03/15 21:53:00 [facility] hydromorphone (ANES) 2015-12-04 02:53:00 No Route: IV, Drug form: INJ, ONCE, Stop date: 12/03/15 21:53:00 [facility] neostigmine (ANES) 2015-12-04 02:53:00 No Route: IV, Drug form: INJ, ONCE, Stop date: 12/03/15 21:53:00 [facility] ceFAZolin (ANES) 2015-12-04 02:53:00 No Route: IV, Drug form: INJ, ONCE, Stop date: 12/03/15 21:53:00 [facility] rocuronium (ANES) 2015-12-04 02:53:00 No Route: IV, Drug form: INJ, ONCE, Stop date: 12/03/15 21:53:00 [facility] acetaminophen (ANES) ([facility]) 2015-12-04 02:36:00 No Route: IV, Drug form: INJ, Start date: 12/03/15 21:36:00, Stop date: 12/03/15 22:36:00 [facility] midazolam (ANES) 2015-12-04 02:22:00 No Route: IV, Drug form: SOLN, ONCE, Stop date: 12/03/15 21:22:00 [facility] lidocaine (ANES) 2015-12-04 02:22:00 No Route: IV, Drug form: INJ, ONCE, Stop date: 12/03/15 21:22:00 [facility] fentaNYL (ANES) 2015-12-04 02:22:00 No Route: IV, Drug form: INJ, ONCE, Stop date: 12/03/15 21:22:00 [facility] glycopyrrolate (ANES) 2015-12-04 02:22:00 No Route: IV, Drug form: INJ, ONCE, Stop date: 12/03/15 21:22:00 [facility] acetaminophen (ANES) 2015-12-04 02:22:00 No Route: IV, Drug form: INJ, ONCE, Stop date: 12/03/15 21:22:00 [facility] ondansetron (ANES) 2015-12-04 02:22:00 No Route: IV, Drug form: INJ, ONCE, Stop date: 12/03/15 21:22:00 [facility] neostigmine (ANES) 2015-12-04 02:22:00 No Route: IV, Drug form: INJ, ONCE, Stop date: 12/03/15 21:22:00 [facility] propofol (ANES) 2015-12-04 02:22:00 No Route: IV, Drug form: INJ, ONCE, Stop date: 12/03/15 21:22:00 [facility] Lactated Ringers Injection IV (ANES) (ANES) 2015-12-04 01:47:00 No Route: IV, Total Volume: 1,000, Start date: 12/03/15 20:47:00, Stop date: 12/03/15 21:47:00 [facility] Xopenex 2015-12-03 18:56:00 No 0.63 mg, Route: NEB, ONCE, Dosing Weight 95, kg, PRN Respiratory Protocol, Start date: 12/03/15 13:56:00, Stop date: 01/02/16 13:55:00 [facility] Protonix 2015-12-03 14:00:00 No Notes: For IV push reconstitute with 10 ml 0.9% sodium chloride and push over 2 minutes. (Same as: Protonix) [facility] 200 ACTUAT Albuterol 0.09 MG/ACTUAT Metered Dose Inhaler [Pr oventil] 2015-12-03 01:47:00 Yes 2 puff, INHALER, Q4H, PRN wheezing, coughing, or shortness of breath, # 1 ea, 1 Refill(s) [facility] Metformin 2015-12-03 01:47:00 Yes 50 0 mg, PO, Daily, 0 Refill(s) [facility] Morphine 2015-12-02 22:14:00 No Not es: (Same as:MORPhine Sulfate) [facility] Ondansetron 2015-12-02 22:14:00 No Notes: (Same as: Zofran) MEDICATION WASTE Product Size: 4 mg Product Wasted: ___ mg [facility] Saline Flush 0.9% 2015-12-02 22:14:00 No Notes: (Same as: BD Posiflush) [facility] Sodium Chloride 0.154 MEQ/ML Injectable Solution 2015-12-02 22:1 4:00 No 1,000 mL, Rate: 100 ml/hr, I nfuse over: 10 hr, Route: IV, Dosing Weight 95.455 kg, Total Volume: 1,000, Start date: 12/02/15 17:14:00, Duration: 30 day, Stop date: 01/01/16 17:13:00 [facility] naproxen 500 mg oral tablet 2015-11-10 09:38:00 Yes 500 mg, PO, BID, PRN Pain, # 30 tab, 0 Refill(s) [facility] Sulfamethoxazole 800 MG / Trimethoprim 160 MG Oral Tablet [B actrim] 2015-11-10 09:38:00 Yes 1 tab, PO, BID, X 7 day, # 1 4 tab, 0 Refill(s) [facility] Sodium Chloride 0.154 MEQ/ML Injectable Solution 2015-11-10 07:5 4:00 No 1,000 mL, 1000 ml/hr, Infuse Over: 1 hr, Route: IV, 1,000, Drug form: INJ, ONCE, Priority: STAT, Dosing Weight 97.727 kg, Start date: 11/10/15 1:54:00, Duration: 1 doses or times, Stop date: 11/10/15 1:54:00 [facility] Rocephin 2015-11-10 07:54:00 No Notes: (Same As: Rocephin). Use with 100 mL NS and infuse over 30 min MEDICATION WASTE Product Size: 1000 mg Product Wasted: ___ mg [facility] Saline Flush 0.9% 2015-11-10 04:53:00 No Notes: (Same as: BD Posiflush) [facility] Sulfamethoxazole 800 MG / Trimethoprim 160 MG Oral Tablet [B actrim] 2015-06-11 09:26:00 Yes Special Instructions: for UT I [facility] Sodium Chloride 0.154 MEQ/ML Injectable Solution 2015-06-11 03:4 8:00 No 1,000 mL, 100 ml/hr, Infuse Over: 1 Hour, Route: IV, ONCE, Dosing Weight 95.455 kg, Start date: 06/10/15 22:48:00, Stop date: 06/10/15 22:48:00 [facility] Acetaminophen 2015-06-11 03:42:00 No 650 mg, Route: MD, ONCE, Dosing Weight 95.455, kg, Priority: STAT, Start date: 06/10/15 22:42:00, Stop date: 06/10/15 22:42:00 [facility] Sodium Chloride 0.154 MEQ/ML Injectable Solution 2015-06-11 03:1 0:00 No 100 mL, 100 ml/hr, Infuse Ov er: 1 Hour, Route: IV, ONCE, Priority: STAT, Dosing Weight 95.455 kg, Start date: 06/10/15 22:10:00, Duration: 1 doses or times, Stop date: 06/10/15 22:10:00 [facility] Protonix 2015-04-21 19:11:00 No 40 mg, Route: IVP, ONCE, Dosing Weight 113.636, kg, Priority: STAT, Start date: 04/21/15 14:11:00, Stop date: 04/21/15 14:11:00 [facility] Benadryl 2015-04-21 19:11:00 No 25 mg, Route: IVP, ONCE, Dosing Weight 113.636, kg, Priority: STAT, Start date: 04/21/15 14:11:00, Stop date: 04/21/15 14:11:00 [facility] Reglan 2015-04-21 19:11:00 No 10 mg, Route: IVP, Drug form: INJ, ONCE, Dosing Weight 113.636, kg, Priority: STAT, Start date: 04/21/15 14:11:00, Stop date: 04/21/15 14:11:00 [facility] Sodium Chloride 0.154 MEQ/ML Injectable Solution 2015-04-21 19:1 0:00 No 1,000 mL, 1,000 ml/hr, Infus e Over: 1 hr, Route: IV, ONCE, Priority: STAT, Dosing Weight 113.636 kg, Start date: 04/21/15 14:10:00, Duration: 1 doses or times, Stop date: 04/21/15 14:10:00 [facility] Metronidazole 500 MG Oral Tablet [Flagyl] 2015-04-19 05:50:00 Yes 500 mg = 1 tab, PO, Q12H, X 7 day, # 14 tab, 0 Refill(s) [facility] Sulfamethoxazole 800 MG / Trimethoprim 160 MG Oral Tablet [B actrim] 2015-04-19 05:50:00 Yes 1 tab, PO, BID, X 7 day, # 1 4 tab, 0 [facility]ill[facility]) [facility] 2015-04-[facility] 05:13:00 No 250 mg, Route: IM, Drug form: PDR/INJ, ONCE, Dosing Weight 97.727, kg, Priority: STAT, Start date: 04/19/15 0:13:00, Stop date: 04/19/15 0:13:00 [facility] 2015-04-19 04:47:00 No 1 gm, Route: IVPB, Drug form: PDR/INJ, ONCE, Dosing Weight 97.727, kg, Priority: STAT, Start date: 04/18/15 23:47:00, Stop date: 04/18/15 23:47:00 [facility] Albuterol 0.833 MG/ML / Ipratropium Brom dimple 0.167 MG/ML Inhalant Solution [DuoNeb] 2015-04-19 04:10:00 No Notes: (S lori as: Duoneb) [facility] Tylenol 2015-04-19 04:10:00 No Notes: Do not exceed 4 gm/day. (Same as: Tylenol) [facility] Saline Flush 0.9% 2015-04-19 04:10:00 No Notes: (Same as: BD Posiflush) [facility] Sodium Chloride 0.154 MEQ/ML Injectable Solution 2015-04-19 04:1 0:00 No 1,000 mL, Rate: 125 ml/hr, I nfuse over: 8 hr, Route: IV, Dosing Weight 97.727 kg, Total Volume: 1,000, Start date: 04/18/15 23:10:00, Duration: 30 day, Stop date: 05/18/15 23:09:[address] [facility] [address] Ceftriaxone 2015-03-10 04:42:00 No 250 mg, Route: IM, Drug form: PDR/INJ, ONCE, Dosing Weight 100, kg, Priority: STAT, Start date: 03/09/15 23:42:00, Stop date: 03/09/15 23:42:00 [facility] Ondansetron 4 MG Oral Tablet [Zofran] 2015-03-10 04:37:00 Y es 4 mg = 1 tab, PO, BID, X 5 day, # 10 tab, 0 Refill(s) [facility] Metronidazole 500 MG Oral Tablet [Flagyl] 2015-03-10 04:36:00 Yes 500 mg = 1 tab, PO, Q12H, X 14 day, # 28 tab, 0 Refill(s) [facility] doxycycline monohydrate 100 mg oral tablet 2015-03-10 04:36:00 Yes 100 mg = 1 tab, PO, Q12H, X 14 day, # 28 tab, 0 Refill(s) [facility] Morphine 2015-03-10 01:14:00 No Not es: (Same as:MORPhine Sulfate) [facility] Sodium Chloride 0.154 MEQ/ML Injectable Solution 2015-03-09 22:1 5:00 No 1,000 mL, 1,000 ml/hr, Infus e Over: 1 hr, Route: IV, 1,000, Drug form: INJ, ONCE, Priority: STAT, Dosing Weight 100 kg, Start date: 03/09/15 17:15:00, Duration: 1 doses or times, Stop date: 03/09/15 17:15:00 [facility] Zofran 2015-03-09 22:13:00 No Notes: (Same as: Lionel) MEDICATION WASTE Product Size: 4 mg Product Wasted: ___ mg [facility] Diflunisal 500 MG Oral Tablet [Dolobid] 2014-11-04 17:55:00 Yes 500 mg = 1 tab, PO, Q8H, # 90 tab, 0 Refill(s) [facility] Ondansetron 4 MG Disintegrating Tablet [Zofran] 2014-11-04 17:55 :00 Yes Special Instructions: Dissolve tab under tongue [facility] Metronidazole 500 MG Oral Tablet [Flagyl] 2014-11-04 17:54:00 Yes 500 mg = 1 tab, PO, Q12H, # 14 tab, 0 Refill(s) [facility] doxycycline monohydrate 100 mg oral tablet 2014-11-04 17:54:00 Yes 100 mg = 1 tab, PO, Q12H, # 20 tab, 0 Refill(s) [facility] Flagyl 2014-11-04 17:53:00 No 1,000 mg, Route: PO, ONCE, Dosing Weight 97.727, kg, Priority: STAT, Start date: 11/04/14 11:53:00, Stop date: 11/04/14 11:53:00 [facility] Rocephin 2014-11-04 17:53:00 No 250 mg, Route: IM, Drug form: PDR/INJ, ONCE, Dosing Weight 97.727, kg, Priority: STAT, Start date: 11/04/14 11:53:00, Stop date: 11/04/14 11:53:00 [facility] Ketorolac 2014-11-04 14:48:00 No 30 mg, Route: IVP, Drug form: INJ, ONCE, Dosing Weight 97.727, kg, Priority: STAT, Start date: 11/04/14 8:48:00, Stop date: 11/04/14 8:48:00 [facility] Ondansetron 4 MG Disintegrating Tablet 2014-10-30 15:54:00 Yes Special Instructions: Dissolve tab under tongue [facility] Sulfamethoxazole 800 MG / Trimethoprim 160 MG Oral Tablet [B actrim] 2014-10-30 15:53:00 Yes 1 tab, PO, BID, # 28 tab, 0 Refill(s) [facility] Tylenol 2014-10-30 14:49:00 No 975 mg, Route: PO, Drug form: TAB, ONCE, Dosing Weight 97.727, kg, Priority: STAT, Start date: 10/30/14 8:49:00, Stop date: 10/30/14 8:49:00 [facility] Morphine 2014-10-30 14:08:00 No 4 mg, Route: IVP, ONCE, Dosing Weight 97.727, kg, Priority: STAT, Start date: 10/30/14 8:08:00, Stop date: 10/30/14 8:08:00 [facility] Ondansetron 2014-10-30 14:08:00 No 4 mg, Route: IVP, ONCE, Dosing Weight 97.727, kg, Priority: STAT, Start date: 10/30/14 8:08:00, Stop date: 10/30/14 8:08:00 [facility] Saline Flush 0.9% 2014-10-30 14:08:00 No Notes: (Same as: BD Posiflush) [facility] Sodium Chloride 0.154 MEQ/ML Injectable Solution 2014-10-30 14:0 8:00 No 1,000 mL, Infuse Over: 1 hr, Route: IV, ONCE, Priority: STAT, Dosing Weight 97.727 kg, Start date: 10/30/14 8:08:00, Duration: 1 doses or times, Stop date: 10/30/14 8:08:00 [facility] Phenazopyridine hydrochloride 200 MG Oral Tablet [Pyridium] 2014-06-23 15:40:00 Yes 200 mg = 1 tab, PO, TID, # 21 tab, 0 Refill(s) [facility] Nitrofurantoin 100 MG Oral Capsule [Macrodantin] 2014-06-23 15:39:00 Yes 100 mg = 1 cap, PO, QID, # 28 cap, 0 Refill(s) [facility] Hydrocortisone 10 MG/ML / Neomycin 3.5 M G/ML / Polymyxin B 84198 UNT/ML Otic Solution 2014-06-23 15:39:00 Yes 4 drp, RIGHT EAR, QID, # 10 mL, 0 Refill(s) [facility] Ondansetron 2014-06-23 14:02:00 No 4 mg, Route: IVP, Drug form: INJ, ONCE, Dosing Weight 52.273, kg, Priority: STAT, Start date: 06/23/14 9:02:00, Stop date: 06/23/14 9:02:00 [facility] Sodium Chloride 0.154 MEQ/ML Injectable Solution 2014-06-23 14:0 2:00 No 1,000 mL, 1,000 ml/hr, Infus e Over: 1 hr, Route: IV, ONCE, Priority: STAT, Dosing Weight 52.273 kg, Start date: 06/23/14 9:02:00, Duration: 1 doses or times, Stop date: 06/23/14 9:02:00 [facility] – [place] [facility] Albuterol 0.833 MG/ML / Ipratropium Brom dimple 0.167 MG/ML Inhalant Solution [DuoNeb] 2014-06-10 11:18:00 Yes 3 mL, INHALATION, TID, Wheezing, # 90 mL, 0 Refill(s) [facility] predniSONE 20 mg oral tablet 2014-06-10 10:45:00 Yes Special Instructions: Take 3 tablets for 60 mg dose [facility] 200 ACTUAT Ipratropium [place] 0.017 MG/ACTUAT Metered Dose Inhaler [Atrovent] 2014-06-10 10:45:00 Yes 1 pu ff, INHALATION, QID, wheezing, # 1 ea, 0 Refill(s) [facility] Albuterol 0.83 MG/ML Inhalant Solution 2014-06-10 10:44:00 Yes 2.49 mg = 3 mL, INHALATION, Q6H, # 120 ea, 0 Refill(s) [facility] Prednisone 2014-06-10 09:19:00 No Notes: Ta ke with food. [facility] Albuterol 0.833 MG/ML / Ipratropium Brom dimple 0.167 MG/ML Inhalant Solution [DuoNeb] 2014-06-10 09:02:00 No 3 mL, Route: INHALATION, Dosing Weight 97.727, kg, ONCE, STAT, Start date: 06/10/14 4:02:00, Stop date: 06/10/14 4:02:00 [facility] Protonix 40 mg oral enteric coated tablet 2012-07-09 05:43 :09 Yes Surendra (Armando) Armando Luciano 40 mg, 1 tab , PO, Daily, 30 tab, Substitution Allowed, ECTAB [facility] Ultram 50 mg oral tablet 2012-07-09 05:42:46 Yes [place] (Armando) Armando Luciano 50 mg, 1 tab, PO, Q4H, PRN, 20 tab, pain, Subst itution Allowed [facility] ondansetron 4 mg oral tablet, disintegrating 2012-07-09 04 :26:00 No Surendra (Armando) Armando Luciano 4 mg, Route: PO, Drug form: TABDIS, ONCE, Dosing Weight 98.636, kg, Priority: STAT, Start date: 07/08/12 23:26:00, Stop date: 07/08/12 23:26:00 [facility] Sodium Chloride 0.9% (Bolus) IV 1000 mL 2012-07-09 03:50:0 0 No [place] (Armando) Armando Luciano 1,000 mL, Ra te: 1,000 ml/hr, Infuse over: 1 hr, Route: IV, Dosing Weight 98.636 kg, Total Volume: 1,000, Bolus Dose, Priority: STAT, Start date: 07/08/12 22:50:00, Duration: 1 doses or times, Stop date: 07/08/12 23:49:00 [facility] morphine Sulfate 2012-07-09 03:50:00 No [place] (Armando) Armando Luciano 4 mg, Route: IVP, ONCE, Dosing Weight 98.636, kg, Priority: STAT, Start date: 07/08/12 22:50:00, Stop date: 07/08/12 22:50:00 [facility] METRONIDazole 500 mg oral tablet 2012-04-16 16:04:55 Yes Samir Billy Leon 500 mg, 1 tab, PO, Q12H, 14 tab, Substitution A llowed [facility] naproxen 500 mg oral tablet 2012-04-16 16:04:42 Yes [place] en Billy Leon 500 mg, 1 tab, PO, BID, PRN, 30 tab, Pain, Substitution Allowed [facility] DuoNeb inhalation solution 2011-11-11 05:37:06 Yes Adan Nolen 3 ml, INHALATION, QID, PRN, 30 ea, as ne eded for shortness of breath or wheezing, Substitution Allowed, Maintenance, SOLN [facility] DuoNeb inhalation solution 2011-11-11 05:16:00 No Adan De Santiagoball 3 ml, Route: INHALATION, Drug Form: SOLN , QID, PRN See Respiratory Notes, Start date: 11/10/11 23:16:00, Duration: 30 day, Stop date: 12/10/11 23:15:00, once [facility] Motrin 2011-11-11 05:15:00 No Zack Nolen Route: PO, ONCE, Start date: 11/10/11 23:15:00, Stop date: 11/10/11 23:15:00 [facility] Ultram 50 mg oral tablet 2011-11-11 04:21:33 Yes Zack Nolen 1 - 2 tabs, PO, Q4-6H, PRN, 30 tab, as needed for pain, Substitution Allowed [facility] Saline Flush 0.9% 2011-11-11 04:05:00 No Zack Chilel K imball 5 ml, Route: IVP, PRN, PRN Line Flush, Start date: 11/10/11 22:05:00, Duration: 24 hr, Stop date: 11/11/11 22:04:[address] [facility] [address] Ultram 50 mg oral tablet 2011-11-11 03:59:00 No Zack De Santiagoball 50 mg, 1 tab, Route: PO, Drug form: TAB, Q4H, PRN Pain, Start date: 11/10/11 21:59:00, Duration: 30 day, Stop date: 12/10/11 21:58:00 [facility] doxycycline hyclate 100 mg oral tablet 2011-10-16 01:01:10 Yes Asem Souman 100 mg, 1 tab, PO, BID, 20 tab, Substitution Al lowed, TAB [facility] Naprosyn 500 mg oral tablet 2011-10-16 00:59:19 Yes Asem Souman 500 mg, 1 tab, PO, BID, 20 tab, Substitution Allowed, TAB [facility] Saline Flush 0.9% 2011-10-15 19:56:00 No Asem Souman 5 ml, Route: IVP, Drug Form: INJ, PRN, PRN Line Flush, Start date: 10/15/11 13:56:00, Duration: 24 hr, Stop date: 10/16/11 13:55:00 [facility] Vital Signs Vital Name Observation Time Observation Value Comments Source Weight 2020-01-23 21:26:00 200 [lb_av] [facility] BMI (Body Mass Index) 2020-01-23 21:26:00 35.4 kg/m2 [facility] Body Temperature 2019-12-14 00:05:00 97.8 [degF] [facility] Respitory Rate 2017-07-31 02:25:00 [facility] Heart Rate 2017-07-31 02:25:00 [facility] Systolic (mm Hg) 2017-07-31 02:25:00 [facility] Diastolic (mm Hg) 2017-07-31 02:25:00 [facility] Temperature Oral (F) 2017-07-31 02:25:00 98.7 F [facility] Temperature Oral (F) 2017-07-30 21:00:00 98.7 F [facility] Heart Rate 2017-07-30 21:00:00 [facility] Respitory Rate 2017-07-30 21:00:00 [facility] Systolic (mm Hg) 2017-07-30 21:00:00 [facility] Diastolic (mm Hg) 2017-07-30 21:00:00 [facility] Heart Rate 2017-07-30 17:51:00 [facility] Respitory Rate 2017-07-30 17:51:00 [facility] Systolic (mm Hg) 2017-07-30 17:51:00 [facility] Diastolic (mm Hg) 2017-07-30 17:51:00 [facility] Weight 2017-07-30 14:49:00 [facility] BMI Calculated 2017-07-30 14:49:00 [facility] Height 2017-07-30 14:49:00 157.48 cm [facility] Temperature Oral (F) 2017-07-30 14:49:00 98 F [facility] Weight 2016-10-24 06:28:00 [facility] BMI Calculated 2016-10-24 06:28:00 [facility] Heart Rate 2016-10-24 06:28:00 [facility] Respitory Rate 2016-10-24 06:28:00 [facility] Height 2016-10-24 06:28:00 157.48 cm [facility] Temperature Oral (F) 2016-10-24 06:28:00 98.0 F [facility] Systolic (mm Hg) 2016-10-24 06:28:00 [facility] Diastolic (mm Hg) 2016-10-24 06:28:00 [facility] Respitory Rate 2016-09-21 21:03:00 [place] [facility] Temperature Oral (F) 2016-09-21 21:03:00 97.8 F [facility] Heart Rate 2016-09-21 21:03:00 [facility] Systolic (mm Hg) 2016-09-21 21:03:00 [facility] Diastolic (mm Hg) 2016-09-21 21:03:00 [facility] Heart Rate 2016-09-21 18:11:00 [facility] Respitory Rate 2016-09-21 18:11:00 [place] [facility] Temperature Oral (F) 2016-09-21 18:11:00 97.4 F [facility] Weight 2016-09-21 18:11:00 [facility] Systolic (mm Hg) 2016-09-21 18:11:00 [facility] Diastolic (mm Hg) 2016-09-21 18:11:00 [facility] Systolic (mm Hg) 2016-09-17 00:28:00 [facility] Diastolic (mm Hg) 2016-09-17 00:28:00 [facility] Respitory Rate 2016-09-17 00:28:00 [facility] [place] [facility] Temperature Oral (F) 2016-09-17 00:28:00 98.2 F [facility] Heart Rate 2016-09-17 00:28:00 [facility] Weight 2016-09-16 19:55:00 [facility] BMI Calculated 2016-09-16 19:55:00 [facility] [place] [facility] Height 2016-09-16 19:55:00 157.48 cm [facility] Temperature Oral (F) 2016-09-16 19:55:00 98.6 [facility] Systolic (mm Hg) 2016-09-16 19:55:00 [facility] Diastolic (mm Hg) 2016-09-16 19:55:00 [facility] Respitory Rate 2016-09-16 19:55:00 [facility] [place] [facility] Heart Rate 2016-09-16 19:55:00 [facility] Respitory Rate 2016-07-13 08:20:00 [facility] [place] [facility] Systolic (mm Hg) 2016-07-13 08:20:00 [facility] Diastolic (mm Hg) 2016-07-13 08:20:00 [facility] Temperature Oral (F) 2016-07-13 08:20:00 98 F [facility] Respitory Rate 2016-07-13 07:36:00 [facility] [place] [facility] Systolic (mm Hg) 2016-07-13 07:36:00 [facility] Diastolic (mm Hg) 2016-07-13 07:36:00 [facility] Temperature Oral (F) 2016-07-13 07:36:00 98 [facility] Systolic (mm Hg) 2016-07-13 06:30:00 [facility] Diastolic (mm Hg) 2016-07-13 06:30:00 [facility] Respitory Rate 2016-07-13 06:30:00 [facility] [place] [facility] Temperature Oral (F) 2016-07-13 05:20:00 98 F [facility] Weight 2016-07-13 04:56:00 [facility] Height 2016-07-13 04:56:00 162.56 cm [facility] BMI Calculated 2016-07-13 04:56:00 [facility] [place] [facility] Heart Rate 2016-07-13 04:56:00 [facility] BMI Calculated 2016-07-10 17:31:00 [facility] [place] [facility] Weight 2016-07-10 17:31:00 [facility] Height 2016-07-10 17:31:00 162.56 cm [facility] Temperature Oral (F) 2016-07-10 17:31:00 98.3 F [facility] Respitory Rate 2016-07-10 17:31:00 [facility] [place] [facility] Heart Rate 2016-07-10 17:31:00 [facility] Systolic (mm Hg) 2016-07-10 17:31:00 [facility] Diastolic (mm Hg) 2016-07-10 17:31:00 [facility] Respitory Rate 2016-07-08 00:15:00 [facility] [place] [facility] Heart Rate 2016-07-08 00:15:00 [facility] Temperature Oral (F) 2016-07-08 00:15:00 97.7 F [facility] Systolic (mm Hg) 2016-07-08 00:15:00 [facility] Diastolic (mm Hg) 2016-07-08 00:15:00 [facility] Height 2016-07-07 21:47:00 162.56 cm [facility] BMI Calculated 2016-07-07 21:47:00 [place] [facility] Weight 2016-07-07 21:47:00 [facility] Temperature Oral (F) 2016-07-07 21:47:00 98.0 F [facility] Respitory Rate 2016-07-07 21:47:00 [facility] [facility] Heart Rate 2016-07-07 21:47:00 [place] Systolic (mm Hg) 2016-07-07 21:47:00 [facility] Diastolic (mm Hg) 2016-07-07 21:47:00 [facility] Systolic (mm Hg) 2016-06-20 01:49:00 [facility] Diastolic (mm Hg) 2016-06-20 01:49:00 [facility] Respitory Rate 2016-06-20 01:49:00 [place] [facility] Heart Rate 2016-06-20 01:49:00 [facility] Temperature Oral (F) 2016-06-20 01:49:00 97.7 F [facility] Respitory Rate 2016-06-19 21:09:00 [place] [facility] Temperature Oral (F) 2016-06-19 21:07:00 98.0 F [facility] Heart Rate 2016-06-19 21:07:00 [facility] [place] Systolic (mm Hg) 2016-06-19 21:07:00 [facility] Diastolic (mm Hg) 2016-06-19 21:07:00 [facility] Respitory Rate 2016-06-19 21:07:00 [facility] [place] [facility] BMI Calculated 2016-06-19 20:26:00 [facility] [place] [facility] Weight 2016-06-19 20:26:00 [facility] [place] [facility] Systolic (mm Hg) 2016-06-19 20:26:00 [facility] Diastolic (mm Hg) 2016-06-19 20:26:00 [facility] Heart Rate 2016-06-19 20:26:00 [facility] Temperature Oral (F) 2016-06-19 20:26:00 98.1 F [facility] Height 2016-06-19 20:26:00 162.56 cm [place] Systolic (mm Hg) 2016-06-19 04:03:00 [facility] Diastolic (mm Hg) 2016-06-19 04:03:00 [facility] Respitory Rate 2016-06-19 04:03:00 [facility] [place] [facility] Temperature Oral (F) 2016-06-19 04:03:00 98.7 F [facility] Respitory Rate 2016-06-19 03:18:00 [facility] [place] [facility] Respitory Rate 2016-06-19 02:00:00 [facility] [place] [facility] Systolic (mm Hg) 2016-06-19 02:00:00 [facility] Diastolic (mm Hg) 2016-06-19 02:00:00 [facility] Temperature Oral (F) 2016-06-19 02:00:00 98.3 F [facility] BMI Calculated 2016-06-19 01:15:00 [place] [facility] Height 2016-06-19 01:15:00 162.56 cm [place] Weight 2016-06-19 01:15:00 [facility] [place] Temperature Oral (F) 2016-06-19 01:15:00 98.2 F [facility] Heart Rate 2016-06-19 01:15:00 [facility] [place] Systolic (mm Hg) 2016-06-19 01:15:00 [facility] Diastolic (mm Hg) 2016-06-19 01:15:00 [facility] Temperature Oral (F) 2016-05-25 14:54:00 98.3 [facility] Systolic (mm Hg) 2016-05-25 14:54:00 [facility] Diastolic (mm Hg) 2016-05-25 14:54:00 [facility] Respitory Rate 2016-05-25 14:54:00 [place] [facility] Heart Rate 2016-05-25 14:54:00 [facility] Weight 2016-05-25 12:39:00 [facility] Height 2016-05-25 12:39:00 157.48 cm [facility] BMI Calculated 2016-05-25 12:39:00 [place] [facility] Systolic (mm Hg) 2016-05-25 12:39:00 [facility] Diastolic (mm Hg) 2016-05-25 12:39:00 [facility] Heart Rate 2016-05-25 12:39:00 [facility] Respitory Rate 2016-05-25 12:39:00 [place] [facility] Temperature Oral (F) 2016-05-25 12:39:00 98.2 F [facility] Heart Rate 2016-04-20 09:30:00 [facility] Respitory Rate 2016-04-20 09:30:00 [place] [facility] Systolic (mm Hg) 2016-04-20 09:30:00 [facility] Diastolic (mm Hg) 2016-04-20 09:30:00 [facility] Temperature Oral (F) 2016-04-20 09:30:00 97.0 F [facility] Heart Rate 2016-04-20 08:58:00 [facility] Respitory Rate 2016-04-20 08:58:00 [place] [facility] Systolic (mm Hg) 2016-04-20 08:58:00 [facility] Diastolic (mm Hg) 2016-04-20 08:58:00 [facility] Systolic (mm Hg) 2016-04-20 06:58:00 [facility] Diastolic (mm Hg) 2016-04-20 06:58:00 [facility] Heart Rate 2016-04-20 06:58:00 [facility] Respitory Rate 2016-04-20 06:58:00 [place] [facility] Weight 2016-04-20 05:18:00 [facility] Temperature Oral (F) 2016-04-20 05:18:00 97.6 F [facility] Height 2016-04-20 05:18:00 157.48 cm [facility] BMI Calculated 2016-04-20 05:18:00 [place] [facility] Temperature Oral (F) 2016-04-19 04:40:00 98.1 F [facility] Systolic (mm Hg) 2016-04-19 04:40:00 [facility] Diastolic (mm Hg) 2016-04-19 04:40:00 [facility] Respitory Rate 2016-04-19 04:40:00 [facility] [place] [facility] Heart Rate 2016-04-19 04:40:00 [facility] Temperature Oral (F) 2016-04-19 03:14:00 98.1 F [facility] Systolic (mm Hg) 2016-04-19 03:14:00 [facility] Diastolic (mm Hg) 2016-04-19 03:14:00 [facility] Respitory Rate 2016-04-19 03:14:00 [facility] [place] [facility] Heart Rate 2016-04-19 03:14:00 [facility] Weight 2016-04-19 00:30:00 [facility] Systolic (mm Hg) 2016-04-19 00:30:00 [facility] Diastolic (mm Hg) 2016-04-19 00:30:00 [facility] Heart Rate 2016-04-19 00:30:00 [facility] Respitory Rate 2016-04-19 00:30:00 [facility] [facility] Height 2016-04-19 00:30:00 157.48 cm [facility] BMI Calculated 2016-04-19 00:30:00 [place] [facility] Temperature Oral (F) 2016-04-19 00:30:00 98.6 F [facility] Systolic (mm Hg) 2016-03-22 00:51:00 [facility] Diastolic (mm Hg) 2016-03-22 00:51:00 [facility] Respitory Rate 2016-03-22 00:51:00 [place] [facility] Heart Rate 2016-03-22 00:51:00 [facility] Temperature Oral (F) 2016-03-22 00:51:00 98.3 F [facility] Weight 2016-03-21 20:13:00 [facility] Height 2016-03-21 20:13:00 157.48 cm [facility] Respitory Rate 2016-03-21 20:13:00 [place] [facility] Temperature Oral (F) 2016-03-21 20:13:00 98.3 F [facility] BMI Calculated 2016-03-21 20:13:00 [facility] [place] [facility] Systolic (mm Hg) 2016-03-21 20:13:00 [facility] Diastolic (mm Hg) 2016-03-21 20:13:00 [facility] Heart Rate 2016-03-21 20:13:00 [facility] Systolic (mm Hg) 2015-12-05 16:40:00 [facility] Diastolic (mm Hg) 2015-12-05 16:40:00 [facility] Respitory Rate 2015-12-05 16:40:00 [facility] [place] [facility] Heart Rate 2015-12-05 16:40:00 [facility] Temperature Oral (F) 2015-12-05 16:40:00 98 F [facility] Respitory Rate 2015-12-05 13:42:00 [facility] [place] [facility] Heart Rate 2015-12-05 12:24:00 [facility] Respitory Rate 2015-12-05 12:24:00 [facility] [place] [facility] Systolic (mm Hg) 2015-12-05 12:24:00 [facility] Diastolic (mm Hg) 2015-12-05 12:24:00 [facility] Temperature Oral (F) 2015-12-05 12:24:00 98.3 F [facility] Systolic (mm Hg) 2015-12-05 09:01:00 [facility] Diastolic (mm Hg) 2015-12-05 09:01:00 [facility] Temperature Oral (F) 2015-12-05 09:01:00 97.6 F [facility] Heart Rate 2015-12-05 09:01:00 [facility] BMI Calculated 2015-12-03 14:00:00 [place] [facility] Weight 2015-12-03 14:00:00 [facility] Height 2015-12-03 14:00:00 170.18 cm [facility] Height 2015-12-03 02:18:00 157.48 cm [facility] Weight 2015-12-03 02:18:00 [facility] BMI Calculated 2015-12-03 02:18:00 [facility] [facility] Height 2015-12-02 19:56:00 157.48 cm [facility] Weight 2015-12-02 19:56:00 [facility] BMI Calculated 2015-12-02 19:56:00 [place] [facility] Systolic (mm Hg) 2015-11-10 09:43:00 [facility] Diastolic (mm Hg) 2015-11-10 09:43:00 [facility] Respitory Rate 2015-11-10 09:43:00 [facility] [place] [facility] Heart Rate 2015-11-10 09:43:00 [facility] Temperature Oral (F) 2015-11-10 09:43:00 98.3 F [facility] Temperature Oral (F) 2015-11-10 04:52:00 98.4 F [facility] BMI Calculated 2015-11-10 04:52:00 [facility] [place] [facility] Weight 2015-11-10 04:52:00 [facility] Height 2015-11-10 04:52:00 157.48 cm [facility] Respitory Rate 2015-11-10 04:52:00 [facility] [facility] Heart Rate 2015-11-10 04:52:00 [facility] Systolic (mm Hg) 2015-11-10 04:52:00 [facility] Diastolic (mm Hg) 2015-11-10 04:52:00 [facility] Systolic (mm Hg) 2015-10-17 05:16:00 [facility] Diastolic (mm Hg) 2015-10-17 05:16:00 [facility] Respitory Rate 2015-10-17 05:16:00 [facility] Heart Rate 2015-10-17 05:16:00 [facility] Temperature Oral (F) 2015-10-17 05:16:00 98.0 F [facility] BMI Calculated 2015-10-17 05:16:00 [facility] Weight 2015-10-17 05:16:00 [facility] Height 2015-10-17 05:16:00 157.48 cm [facility] Height 2015-09-21 14:59:00 157.48 cm [facility] Weight 2015-09-21 14:59:00 [facility] BMI Calculated 2015-09-21 14:59:00 [facility] [facility] Respitory Rate 2015-09-21 14:59:00 [facility] Heart Rate 2015-09-21 14:59:00 [facility] Temperature Oral (F) 2015-09-21 14:59:00 98.1 F [facility] Systolic (mm Hg) 2015-09-21 14:59:00 [facility] Diastolic (mm Hg) 2015-09-21 14:59:00 [facility] Respitory Rate 2015-06-11 08:52:00 [facility] [place] [facility] Heart Rate 2015-06-11 08:52:00 [facility] Systolic (mm Hg) 2015-06-11 08:52:00 [facility] Diastolic (mm Hg) 2015-06-11 08:52:00 [facility] Temperature Oral (F) 2015-06-11 07:58:00 98.0 F [facility] Heart Rate 2015-06-11 07:58:00 [facility] Respitory Rate 2015-06-11 07:58:00 [facility] [place] [facility] Systolic (mm Hg) 2015-06-11 07:58:00 [facility] Diastolic (mm Hg) 2015-06-11 07:58:00 [facility] Temperature Oral (F) 2015-06-11 01:18:00 98.0 F [facility] Weight 2015-06-11 01:18:00 [facility] Systolic (mm Hg) 2015-06-11 01:18:00 [facility] Diastolic (mm Hg) 2015-06-11 01:18:00 [facility] Heart Rate 2015-06-11 01:18:00 [facility] Respitory Rate 2015-06-11 01:18:00 [facility] [place] [facility] Weight 2015-05-14 13:24:00 [facility] BMI Calculated 2015-05-14 13:24:00 [facility] [place] [facility] Respitory Rate 2015-05-14 13:24:00 [facility] [place] [facility] Heart Rate 2015-05-14 13:24:00 [facility] Systolic (mm Hg) 2015-05-14 13:24:00 [facility] Diastolic (mm Hg) 2015-05-14 13:24:00 [facility] Temperature Oral (F) 2015-05-14 13:24:00 98.5 F [facility] Height 2015-05-14 13:24:00 157.48 cm [facility] Respitory Rate 2015-04-21 21:13:00 [facility] [place] [facility] Temperature Oral (F) 2015-04-21 21:13:00 98.0 F [facility] Systolic (mm Hg) 2015-04-21 21:13:00 [facility] Diastolic (mm Hg) 2015-04-21 21:13:00 [facility] Respitory Rate 2015-04-21 20:11:00 [facility] [facility] BMI Calculated 2015-04-21 17:33:00 [facility] [facility] Weight 2015-04-21 17:33:00 [facility] Systolic (mm Hg) 2015-04-21 17:33:00 [facility] Diastolic (mm Hg) 2015-04-21 17:33:00 [facility] Heart Rate 2015-04-21 17:33:00 [facility] Temperature Oral (F) 2015-04-21 17:33:00 98.1 F [facility] Respitory Rate 2015-04-21 17:33:00 [facility] [facility] Height 2015-04-21 17:33:00 157.48 cm [facility] Heart Rate 2015-04-19 06:01:00 [facility] Temperature Oral (F) 2015-04-19 06:01:00 98.3 F [facility] Respitory Rate 2015-04-19 06:01:00 [facility] [facility] Systolic (mm Hg) 2015-04-19 06:01:00 [facility] Diastolic (mm Hg) 2015-04-19 06:01:00 [facility] Respitory Rate 2015-04-19 04:51:00 [facility] Weight 2015-04-19 03:51:00 [facility] Temperature Oral (F) 2015-04-19 03:51:00 98.4 F [facility] Height 2015-04-19 03:51:00 157.48 cm [facility] Heart Rate 2015-04-19 03:51:00 [facility] Respitory Rate 2015-04-19 03:51:00 [facility] Systolic (mm Hg) 2015-04-19 03:51:00 [facility] Diastolic (mm Hg) 2015-04-19 03:51:00 [facility] BMI Calculated 2015-04-19 03:51:00 [facility] Respitory Rate 2015-03-17 02:02:00 [facility] Heart Rate 2015-03-17 02:02:00 [facility] Systolic (mm Hg) 2015-03-17 02:02:00 [facility] Diastolic (mm Hg) 2015-03-17 02:02:00 [facility] Height 2015-03-17 02:02:00 157.48 cm [facility] BMI Calculated 2015-03-17 02:02:00 [facility] Temperature Oral (F) 2015-03-17 02:02:00 98.6 F [facility] Weight 2015-03-17 02:02:00 [facility] Heart Rate 2015-03-10 04:56:00 [facility] Systolic (mm Hg) 2015-03-10 04:56:00 [facility] Diastolic (mm Hg) 2015-03-10 04:56:00 [facility] Respitory Rate 2015-03-10 04:56:00 [facility] [facility] Temperature Oral (F) 2015-03-10 04:56:00 97.9 F [facility] Heart Rate 2015-03-09 23:56:00 [facility] Respitory Rate 2015-03-09 23:56:00 [facility] Systolic (mm Hg) 2015-03-09 23:56:00 [facility] Diastolic (mm Hg) 2015-03-09 23:56:00 [facility] BMI Calculated 2015-03-09 21:26:00 [facility] Weight 2015-03-09 21:26:00 [facility] Height 2015-03-09 21:26:00 157.48 cm [facility] Heart Rate 2015-03-09 21:26:00 [facility] Respitory Rate 2015-03-09 21:26:00 [facility] Systolic (mm Hg) 2015-03-09 21:26:00 [facility] Diastolic (mm Hg) 2015-03-09 21:26:00 [facility] Temperature Oral (F) 2015-03-09 21:26:00 98.1 F [facility] Systolic (mm Hg) 2014-11-04 19:11:00 [facility] Diastolic (mm Hg) 2014-11-04 19:11:00 [facility] Respitory Rate 2014-11-04 19:11:00 [facility] Heart Rate 2014-11-04 19:11:00 [facility] Temperature Oral (F) 2014-11-04 19:11:00 98.5 F [facility] Respitory Rate 2014-11-04 17:19:00 [facility] Rate 2014-11-04 17:19:00 [facility] Temperature Oral (F) 2014-11-04 17:19:00 98.4 [facility] Systolic (mm Hg) 2014-11-04 17:19:00 [facility] Diastolic (mm Hg) 2014-11-04 17:19:00 [facility] Temperature Oral (F) 2014-11-04 14:18:00 98.3 F [facility] Systolic (mm Hg) 2014-11-04 14:18:00 [facility] Diastolic (mm Hg) 2014-11-04 14:18:00 [facility] Respitory Rate 2014-11-04 14:18:00 [facility] Heart Rate 2014-11-04 14:18:00 [facility] Height 2014-11-04 14:18:00 160.02 cm [facility] BMI Calculated 2014-11-04 14:18:00 [facility] Weight 2014-11-04 14:18:00 [facility] Temperature Oral (F) 2014-10-30 16:24:00 98.3 F [facility] Systolic (mm Hg) 2014-10-30 16:24:00 [facility] Diastolic (mm Hg) 2014-10-30 16:24:00 [facility] Respitory Rate 2014-10-30 16:24:00 [facility] Heart Rate 2014-10-30 16:24:00 [facility] Systolic (mm Hg) 2014-10-30 13:52:00 [facility] Diastolic (mm Hg) 2014-10-30 13:52:00 [facility] Rate 2014-10-30 13:52:00 [facility] Respitory Rate 2014-10-30 13:52:00 [facility] Temperature Oral (F) 2014-10-30 13:52:00 99.0 F [facility] Height 2014-10-30 13:52:00 160.02 cm [facility] BMI Calculated 2014-10-30 13:52:00 [facility] Weight 2014-10-30 13:52:00 [facility] Respitory Rate 2014-06-23 16:16:00 [facility] Heart Rate 2014-06-23 16:16:00 [facility] Temperature Oral (F) 2014-06-23 16:16:00 98.2 F [facility] Diastolic (mm Hg) 2014-06-23 16:16:00 [facility] Systolic (mm Hg) 2014-06-23 16:16:00 [facility] Weight 2014-06-23 13:30:00 [facility] BMI Calculated 2014-06-23 13:30:00 [facility] Height 2014-06-23 13:30:00 157.48 cm MH [facility] Heart Rate 2014-06-23 13:30:00 [facility] Diastolic (mm Hg) 2014-06-23 13:30:00 [facility] Systolic (mm Hg) 2014-06-23 13:30:00 [facility] Respitory Rate 2014-06-23 13:30:00 [facility] Temperature Oral (F) 2014-06-23 13:30:00 98.2 F [facility] Diastolic (mm Hg) 2014-06-10 11:29:00 [facility] Systolic (mm Hg) 2014-06-10 11:29:00 [facility] Temperature Oral (F) 2014-06-10 11:29:00 98.0 F [facility] Heart Rate 2014-06-10 11:29:00 [facility] Respitory Rate 2014-06-10 11:29:00 [facility] Respitory Rate 2014-06-10 09:08:00 [facility] Weight 2014-06-10 08:51:00 MH [facility] Heart Rate 2014-06-10 08:51:00 MH [facility] Diastolic (mm Hg) 2014-06-10 08:51:00 [facility] Systolic (mm Hg) 2014-06-10 08:51:00 [facility] Temperature Oral (F) 2014-06-10 08:51:00 98.1 F [facility] Respitory Rate 2014-06-10 08:51:00 [facility] Height 2012-07-09 02:42:00 157.48 cm [facility] Weight 2012-07-09 02:42:00 MH [facility] Weight 2012-04-22 12:52:00 [facility] Height 2012-04-22 12:52:00 160.02 cm [facility] Height 2012-04-16 12:27:00 160.02 cm [facility] Weight 2012-04-16 12:27:00 [facility] Weight 2011-11-11 02:42:00 MH [facility] Height 2011-11-11 02:42:00 160.02 cm [facility] Weight 2011-11-09 23:20:00 MH [facility] Height 2011-11-09 23:20:00 160.02 cm [facility] Diastolic (mm Hg) 2011-10-16 01:23:00 [facility] Systolic (mm Hg) 2011-10-16 01:23:00 [facility] Heart Rate 2011-10-16 01:23:00 [facility] Respitory Rate 2011-10-16 01:23:00 [facility] Temperature Oral (F) 2011-10-16 01:23:00 98.3 F [facility] Temperature Oral (F) 2011-10-15 20:31:00 98.6 F [facility] Respitory Rate 2011-10-15 20:31:00 [facility] Heart Rate 2011-10-15 20:31:00 [facility] Diastolic (mm Hg) 2011-10-15 20:31:00 [facility] Systolic (mm Hg) 2011-10-15 20:31:00 [facility] Weight 2011-10-15 19:13:00 [facility] Height 2011-10-15 19:13:00 157.48 cm [facility] Heart Rate 2011-10-15 19:13:00 MH [facility] Diastolic (mm Hg) 2011-10-15 19:13:00 [facility] Temperature Oral (F) 2011-10-15 19:13:00 98.1 F [facility] Respitory Rate 2011-10-15 19:13:00 [facility] Systolic (mm Hg) 2011-10-15 19:13:00 [facility] Temperature Oral (F) 2011-08-02 13:11:00 98.4 F [facility] Heart Rate 2011-08-02 13:11:00 [facility] Diastolic (mm Hg) 2011-08-02 13:11:00 [facility] Respitory Rate 2011-08-02 13:11:00 [facility] Systolic (mm Hg) 2011-08-02 13:11:00 [facility] Weight 2011-08-02 13:09:00 [facility] Height 2011-08-02 13:09:00 160.02 cm [facility] Procedures Procedure Date / Time Performed Performing Clinician [facility] e X-ray of chest, two views 2019-12-13 00:00:00 ADI SALAS [facility] X-ray of chest, two views 2019-09-05 00:00:00 ADI SALAS [facility] Cholecystectomy [facility], [facility], [facility] D&C - Dilatation and curettage [facility], [facility], [facility] Tubal ligation [facility] Plan of Care Planned Activity Planned Date Details Comments Source Goal Patient referral [code = 3191126 ] [facility] Instructions Contusion [facility] Encounters Start Date/Time End Date/Time Encounter Type Admission Type Attendi [facility] Care Department Encounter ID Source 2020-02-02 15:46:59 TH MHIEALT [facility] [id number] [facility] 2020-02-02 15:46:59 Outpatient MHIEALT [facility] [id number] [facility] 2020-01-23 21:13:00 2020-01-23 22:49:00 Departed Emergency Room 1 ROMAINE LOZOYA [facility] [id number] [facility] 2020-01-05 18:19:00 2020-01-05 19:30:00 Departed Emergency Room [facility] [id number] [facility] 2019-12-15 12:37:00 2019-12-15 13:15:00 Departed Emergency Room [facility] [id number] [facility] 2019-12-13 19:36:00 2019-12-14 00:15:00 Departed Emergency Room 1 LELIA SALAS [facility] [id number] [facility] 2019-09-05 19:53:00 2019-09-05 23:10:00 Departed Emergency Room 1 LELIA SALAS [facility] [id number] [facility] 2019-05-16 15:48:00 2019-05-16 16:58:00 Departed Emergency Room [facility] [id number] [facility] 2018-06-16 13:51:00 2018-06-16 16:38:00 Departed Emergency Room 1 KAYLA LLANOS [facility] [id number] [facility] 2017-07-30 14:38:00 2017-07-31 02:48:00 Observation MHIEALT [facility] [id number] [facility] 2017-07-30 08:38:00 2017-07-30 20:48:00 Outpatient Yolanda Plata [id number] 2016-10-24 06:23:00 2016-10-24 08:10:00 Emergency [facility] [id number] [facility] 2016-10-24 00:23:00 2016-10-24 02:10:00 Outpatient Francisco De Leon [facility] [id number] 2016-09-21 18:00:00 2016-09-21 21:37:00 Emergency [facility] [id number] [facility] 2016-09-21 12:00:00 2016-09-21 15:37:00 Outpatient Nemo Santiago Laura [facility] [id number] 2016-09-16 19:53:00 2016-09-17 00:34:00 Emergency [facility] [id number] [facility] 2016-09-16 13:53:00 2016-09-16 18:34:00 Outpatient Michelle Humphriesflorinda [facility] [id number] 2016-07-13 04:42:00 2016-07-13 08:24:00 Emergency [facility] [id number] [facility] 2016-07-12 23:42:00 2016-07-13 03:24:00 Outpatient Priti Main [facility] [id number] 2016-07-10 17:27:00 2016-07-10 21:52:00 Emergency [facility] [id number] [facility] 2016-07-10 12:27:00 2016-07-10 16:52:00 Outpatient Tarik Ventura [facility] [id number] 2016-07-07 21:41:00 2016-07-08 00:36:00 Emergency [facility] [id number] [facility] 2016-07-07 16:41:00 2016-07-07 19:36:00 Outpatient Ángela Talamantes [facility] [id number] 2016-06-19 20:23:00 2016-06-20 01:52:00 Emergency [facility] [id number] [facility] 2016-06-19 15:23:00 2016-06-19 20:52:00 Outpatient Jamil De Santiago [facility] [id number] 2016-06-19 01:10:00 2016-06-19 04:45:00 Emergency [facility] [id number] [facility] 2016-06-18 20:10:00 2016-06-18 23:45:00 Outpatient Sue tiff Ángelamurray Chin [facility] [id number] 2016-05-25 12:33:00 2016-05-25 15:15:00 Emergency [facility] [id number] [facility] 2016-05-25 07:33:00 2016-05-25 10:15:00 Outpatient T[facility] [id number] 2016-04-20 05:14:00 2016-04-20 09:45:00 Emergency [facility] [id number] [facility] 2016-04-20 00:14:00 2016-04-20 04:45:00 Outpatient EtelvinaPriti [facility] [id number] 2016-04-19 00:21:00 2016-04-19 05:01:00 Emergency [facility] [id number] [facility] 2016-04-18 19:21:00 2016-04-19 00:01:00 Outpatient Marito Bailey [facility] [id number] 2016-03-21 20:07:00 2016-03-22 00:58:00 EC Emergency Center [facility] [id number] [facility] 2016-03-21 15:07:00 2016-03-21 19:58:00 Outpatient Titus Richardson [facility] [id number] 2015-12-09 17:20:00 2015-12-09 17:20:00 lab results LENADRO [facility] [id number] [facility] 2015-12-09 12:20:00 2015-12-09 12:20:00 Outpatient [facility] [id number] [employer] 2015-12-02 19:46:00 2015-12-05 19:57:00 Inpatient [facility] [id number] [facility] 2015-12-02 14:46:00 2015-12-05 14:57:00 Outpatient Adan Lopez [facility] [id number] 2015-11-10 04:38:00 2015-11-10 09:53:00 EC Emergency Center [facility] [id number] [facility] 2015-11-09 22:38:00 2015-11-10 03:53:00 Outpatient Marito Carrillo [facility] [id number] 2015-10-17 05:14:00 2015-10-17 05:45:00 EC Emergency Center [facility] [id number] [facility] 2015-10-16 23:14:00 2015-10-16 23:45:00 Outpatient [facility] [id number] 2015-09-21 14:57:00 2015-09-21 16:14:00 EC Emergency Center [facility] [id number] [facility] 2015-09-21 08:57:00 2015-09-21 10:14:00 Outpatient Marito Carrillo [facility] [id number] 2015-06-11 01:18:00 2015-06-11 09:39:00 EC Emergency Center [facility] [id number] [facility] 2015-06-10 20:18:00 2015-06-11 04:39:00 Outpatient Daly Stack [facility] [id number] 2015-05-14 13:23:00 2015-05-14 14:11:00 EC Emergency Center [facility] [id number] [facility] 2015-05-14 08:23:00 2015-05-14 09:11:00 Outpatient Axel Santos [facility] [id number] 2015-04-21 17:33:00 2015-04-21 21:16:00 EC Emergency Center [facility] [id number] [facility] 2015-04-21 12:33:00 2015-04-21 16:16:00 Outpatient Laurel Sim [facility] [id number] 2015-04-19 03:49:00 2015-04-19 06:18:00 EC Emergency Center [facility] [id number] [facility] 2015-04-18 22:49:00 2015-04-19 01:18:00 Outpatient F Michelle diaz [facility] [id number] 2015-03-17 01:42:00 2015-03-17 02:02:00 EC Emergency Center [facility] [id number] [facility] 2015-03-16 20:42:00 2015-03-16 21:02:00 Outpatient F Michelle diaz [facility] [id number] 2015-03-09 21:12:00 2015-03-10 05:15:00 EC Emergency Center [facility] [id number] [facility] 2015-03-09 16:12:00 2015-03-10 00:15:00 Outpatient Artemio Mora [facility] [id number] 2014-11-04 14:17:00 2014-11-04 19:12:00 EC Emergency Center [facility] [id number] [facility] 2014-11-04 08:17:00 2014-11-04 13:12:00 Outpatient Nahomy Richardson [facility] [id number] 2014-10-30 13:50:00 2014-10-30 16:24:00 EC Emergency Center [facility] [id number] [facility] 2014-10-30 07:50:00 2014-10-30 10:24:00 Outpatient Nahoym Richardson MHIEALT MHIEALT [id number] 2014-06-23 13:24:00 2014-06-23 16:18:00 EC Emergency Center [facility] [id number] [facility] 2014-06-23 08:24:00 2014-06-23 11:18:00 Outpatient Dat Elkins Bhagliliane MHIEALT MHIEALT [id number] 2014-06-10 08:50:00 2014-06-10 11:30:00 EC Emergency Center [facility] [id number] [facility] 2014-06-10 03:50:00 2014-06-10 06:30:00 Outpatient Bethany Zaragoza MHIEALT MHIEALT [id number] 2012-07-08 21:41:00 2012-07-08 21:42:00 Emergency MHIEAL T [facility] [id number] [facility] 2012-04-22 07:51:00 2012-04-22 09:25:00 Emergency MHIEAL T [facility] [id number] [facility] 2012-04-16 07:18:00 2012-04-16 12:15:00 Emergency MHIEAL T [facility] [id number] [facility] 2011-11-10 20:40:00 2011-11-10 23:47:00 Emergency MHIEAL T [facility] [id number] [facility] 2011-11-09 17:16:00 2011-11-09 20:59:00 Emergency MHIEAL T [facility] [id number] [facility] 2011-10-15 13:07:00 2011-10-15 19:30:00 Emergency MHIEAL T [facility] [id number] [facility] 2011-08-02 07:09:00 2011-08-02 08:39:00 Emergency MHIEAL T [facility] [id number] [facility] Results Test Description Test Time Test Comments Results Result Comments Source [facility] 2020-01-23 22:39:00 [place] [address] Patient Name: ROXANA HUERTA MR #: [id number] : 1985 Age/Sex: 34/F Req #: [id number] Adm Physician: Ordered by: ROMAINE LOZOYA MD Report #: [id number] Location: [facility] Room/Bed: Procedure: [id number] HOPD/US EXREMEITY VEINS UNI-HOPD Exam Date: Exam Time: REPORT STATUS: Signed EXAM: Right Lower Extremity Venous Duplex Ultrasound INDICATION: right leg swelling, look for DVT COMPARISON: None TECHNIQUE: Corea scale, color Doppler and spectral waveform analysis of the right lower extremity deep venous system was performed. FINDINGS: Common Femoral: Fully compressible with normal spontaneous waveforms. Proximal Greater Saphenous: Fully compressible. Femoral: Fully compressible with normal spontaneous waveforms. Normal response to augmentation. Proximal Deep Femoral: Normal spontaneous waveforms. Popliteal: Fully compressible with normal spontaneous waveforms. IMPRESSION: No evidence of deep venous thrombosis above the right calf. Signed by: Darrius Lance MD on 01/23/2020 10:39 PM Dictated By: DARRIUS LANCE MD 38 Transcribed By: LC on 01/23/202238 COPY TO: ROMAINE LOZOYA MD Capillary blood glucose measurement by glucometer (mas s/volume) 2020-01-05 19:09:00 Test Item Bedside Glucose (test code = 16763-0) 252 [facility] 2 [id number] 23:16:00 [facility] [address] [place] [address] Patient Name: ROXANA HUERTA MR #: [id number] : 1985 Age/Sex: 34/F Req #: [id number] Adm Physician: Ordered by: LELIA SALAS MD Report #: [id number] Location: ER Room/Bed: Procedure: [id number] DX/CHEST 2 VIEWS Exam Date: 12/13/19 Exam Tavon e: 2250 REPORT STATUS: Signed EX AMINATION: CHEST 2 VIEWS INDICATION: Shortness of breath, cough co [facility] [id number] 2249 Y COMPARISON: Chest x-ray 09/05/2019 FINDINGS: PA and lateral views TUBES and LINES: None. LUNGS: Lungs are well inflated. There is no evidence of pneumonia or pulmonary edema. PLEURA: No pleural effusion or pneumothorax. HEART AND MEDIASTINUM: The cardiomediastinal silhouette is unremarkable.. BONES AND SOFT TISSUES: N o focal osseous lesions. Soft tissues are unremarkable. UPPER ABDOMEN: Cholecystectomy clips in the right upper quadrant. IMPRESSION: No acute thoracic abnormality. Signed by: Dr. Ronny Khanna MD on 12/13/2019 11:16 PM Dictated By: RONNY KHANNA MD 15 Transcribed By: LC on 12/13/192315 COPY TO: LELIA SALAS MD Influenza virus A and B antigen identification by [id number]-01 21:17:00* Test Item Value Reference Range Interpretation Comments Influenza Virus Types A,B Antigen (test code = 66073-5) [facility]GATIVE [facility] detection in [id number] 21:17:00* Test Item Value Reference Range Interpretation Comments Group A Streptococcus Screen (test code = 02527-8) NE[facility]IVE [facility] [id number] 22:55:00 [facility] [address] [place] [address] Patient Name: ROXANA HUERTA MR #: [id number] : 1985 Age/Sex: 33/F Req #: [id number] Adm Physician: Ordered by: LELIA SALAS MD Report #: [id number] Location: ER Room/Bed: Procedure: [id number] DX/CHEST 2 VIEWS Exam Date: 09/05/19 Exam Tavon e: 2226 REPORT STATUS: Signed EX AMINATION: CHEST 2 VIEWS INDICATION: FEVER, COUGH [id number] 2 226 Y COMPARISON: None FINDINGS: PA [...] on 09/05/192254 COPY TO: LELIA SALAS Urine color [id number] 20:40:00* Test Item Value Reference Range Interpretation Comments Urine Color (test code = 5778-6) YELLOW [facility] [id number] 20:40:00* Test Item Value Reference Range Interpretation Comments Urine Clarity (test code = 90166-3) CLEAR [facility] Urine by Test strip 2019-09-05 20:40:00* Test Item Value Reference Range Interpretation Comments Urine Specific [place] (test code = 5811-5) >=1.030 [facility] measurement by automated test [id number] 20:40:00* Test Item Value Reference Range Interpretation Comments Urine pH (test code = 98799-1) 6 [facility] leukocyte esterase detection by automated test [id number] 20:40:00* Test Item Value Reference Range Interpretation Comments Urine Leukocyte Esterase (test code = 32542-7) TRACE [facility] nitrite detection by automated test [id number] 20:40:00* Test Item Value Reference Range Interpretation Comments Urine Nitrite (test code = 06067-3) NEGATIVE [facility] protein detection by automated test [id number] 20:40:00* Test Item Value Reference Range Interpretation Comments Urine Protein (test code = 62578-7) NEGATIVE [facility] glucose detection by automated test [id number] 20:40:00* Test Item Value Reference Range Interpretation Comments Urine Glucose (UA) (test code = 21016-6) 1+ [facility] ketones detection by automated test iqero9157-46-17 20:40:00* Test Item Value Reference Range Interpretation Comments Urine Ketones (test code = 64968-9) TRACE [facility] urobilinogen measurement by test strip (mass/volume)2019-09-05 20:40:00* Test Item Value Reference Range Interpretation Comments Urine Urobilinogen (test code = 78992-6) 0.2 [facility] total bilirubin ucomtbogh0058-36-37 20:40:00* Test Item Value Reference Range Interpretation Comments Urine Bilirubin (test code = 1977-8) NEGATIVE [facility] erythrocytes farjkzryb1609-62-34 20:40:00* Test Item Value Reference Range Interpretation Comments Urine Blood (test code = 59428-4) TRACE [facility] sediment leukocyte count by microscopy (number/high power field)2019-09-05 20:40:00* Test Item Value Reference Range Interpretation Comments Urine WBC (test code = 5821-4) -50 [facility] detection in urine sediment by light hpkqcasjyk1996-49-61 20:40:00* Test Item Value Reference Range Interpretation Comments Urine RBC (test code = 22777-6) -20 [facility] detection in urine sediment by light tpilqutnon1690-61-11 20:40:00* Test Item Value Reference Range Interpretation Comments Urine Bacteria (test code = 33982-8) MODERATE [facility] cells detection in urine sediment by light vaokbsdcns2382-97-97 20:40:00* Test Item Value Reference Range Interpretation Comments Urine Epithelial Cells (test code = 13729-1) FEW [facility] detection in urine sediment by light rprplursar2513-00-04 20:40:00* Test Item Value Reference Range Interpretation Comments Urine Mucus (test code = 8247-9) MODERATE [facility] human chorionic gonadotropin (hCG) xkxsetrzb2403-99-92 20:40:00* Test Item Value Reference Range Interpretation Comments Urine Test (test code = 2106-3) NEGATIVE [facility]- XR FOOT 3 + V [id number] 23:40:00 FAX: Tamika Taylor [facility] Wade: B St: REG FAX: Kelly Gilbert MD [phone] Name: ROXANA HUERTA [facility] : 1985 Age/S: 33/F [address] Unit #: [id number] Loc: [place] [address] Phys: Tamika Taylor NP Acct: [id number] Dis Date: Status: REG ER PHONE #: [phone] Exam Date: 05/15/2019 2328 FAX #: [phone] Reason: GREAT TOE INJURY EXAMS: CPT CODE: [id number] XR FOOT 3 + V LT 11444 - XR FOOT 3 + V LT, 05/15/2019 10:06 PM Reason For Examination: GREAT TOE INJURY Comparison: None available Location: R16: Findings: No evidence of acute f racture or dislocation. No radiopaque foreign body. Impre ssion: No plain film evidence of acute fracture or dislocation at 2340 Re ported and signed by: Gely Eugene M.D. CC: Tamika Taylor NP; Kelly Gilbert MD Technologist: Cedric SEGURA( R) Trnscrd Date/Time/By: 05/15/2019 (9360) : By : [email or web address] Orig Print D/T: S: 05/15/2019 (0299) PAGE 1 Signed Report - XR CHEST 1 [id number] 18:18:00 FAX: Sangeetha Robert DO Wade: [address]: REG Name: Gregg ROXANA PABLO [facility] : 10/01/18 84 Age/S: 33/F [address] Unit #: [id number] Loc: [place] [address] Phys: Sangeetha Robert DO Acct: [id number] Dis Date: Status: REG ER PHONE #: [phone] Exam Date: 03/11/2019 1750 FAX #: [phone] Reason: dyspnea EXAMS: CPT CODE: [id number] XR CHEST 1 V 21894 REASON FOR EXAM: dyspnea EXAM ORDER DATE: 03/11/2019 5:28 PM Ordering [place]: Sangeetha Robert DO PROCEDURE: - XR CHEST [...] By: AlejandraL Orig Print D/T: S: 03/11/2019 (391) PAGE 1 Signed Report DRUGS OF ABUSE SCREEN [id number] 17:55:00* Test Item Value Reference Range Interpretation [...] NEGATIVE <300 ng/mL DRUGS OF ABUSE SCREEN [id number] 17:43:00* Test Item Value Reference Range Interpretation [...] code = [place]) <300 ng/mL BASIC METABOLIC [id number] 17:07:00* Test Item Value Reference Range Interpretation [...] CA) 8.8 mg/dL 8.5-10.1 N HEPATIC FUNCTION [id number] 17:07:00* Test Item Value Reference Range Interpretation [...] due to change in reagent. HCG SERUM [id number] 17:07:00* Test Item Value Reference Range Interpretation [...] 200,000 MIU/ML2-3 MONTHS AFTER CONCEPTION 10,000-100,000 MIU/ML [id number] 17:07:00* Test Item Value Reference Range Interpretation Comments TROPONIN-I (test code = TROPI) <0.015 ng/mL 0-0.045 N CBC W/O [id number] 17:02:00* Test Item Value Reference Range Interpretation [...] MPV) 11.0 fL 6.7-11.0 N BASIC METABOLIC [id number] 16:50:00* Test Item Value Reference Range Interpretation [...] code = CA) mg/dL 8.5-10.1 HEPATIC FUNCTION [id number] 16:50:00* Test Item Value Reference Range Interpretation [...] code = ALKP) IUnit/L 45-117 HCG SERUM [id number] 16:50:00* Test Item Value Reference Range Interpretation Comments HCG SERUM BETA (test code = HCG) mIU/mL 0-3 [id number] 16:50:00* Test Item Value Reference Range Interpretation Comments TROPONIN-I (test code = TROPI) ng/mL 0-0.045 COMPREHENSIVE METABOLIC [id number] 21:51:00* Test Item Value Reference Range Interpretation [...] be accurate due to hemolysis. COMPREHENSIVE METABOLIC [id number] 21:31:00* Test Item Value Reference Range Interpretation [...] NOT be accurate due to hemolysis.CBC W/AUTO [id number] 21:30:00* Test Item Value Reference Range Interpretation [...] = MDIFF) NO, ONLY SCAN NEEDED DIFFERENTIAL [id number] 21:30:00* Test Item Value Reference Range Interpretation Comments STAIN ACCEPTABILITY (test code = STN ACCEPTABLE) STAIN ACCEPTABLE POIKILOCYTOSIS (test code = POIK) 1+ ANISOCYTOSIS (test code = ANISO) 1+ MICROCYTOSIS (test code = MICR) 1+ ELLIPTOCYTES (test code = ELL) 1+ PLATELET ESTIMATE (test code = PLTEST) ADEQUATE PLATELET MORPHOLOGY (test code = PLTMORPH) SIZE VARIABLE CBC W/AUTO [id number] 21:18:00* Test Item Value Reference Range Interpretation [...] = MDIFF) NO, ONLY SCAN NEEDED DIFFERENTIAL [id number] 21:18:00* Test Item Value Reference Range Interpretation Comments STAIN ACCEPTABILITY (test code = STN ACCEPTABLE) POIKILOCYTOSIS (test code = POIK) 1+ ANISOCYTOSIS (test code = ANISO) 1+ MICROCYTOSIS (test code = MICR) 1+ ELLIPTOCYTES (test code = ELL) 1+ PLATELET ESTIMATE (test code = PLTEST) ADEQUATE PLATELET MORPHOLOGY (test code = PLTMORPH) SIZE VARIABLE - XR CHEST 2 [id number] 21:09:00 FAX: Rosy Orantes [phone] Wade: St: REG Name: ROXANA KEBEDE [facility] : [birth year] 84 Age/S: 33/F [address] [facility] Unit #: [id number] Loc: [place] [address] Phys: Rosy Hobson MD Acct: [id number] Dis Date: Status: REG ER PHONE #: [phone] Exam Date: 02/13/20192103 FAX #: [phone] Reason: cp EXAMS: CPT CODE: [id number] XR CHEST 2 V 23118 REASON FOR EXAM: cp Exam Order Date: 02/13/2019 7:22 PM Ordering [place]: Rosy Hobson MD PROCEDURE: - XR CHEST 2 V COMPARISON: FINDINGS: PA and lateral views of the chest show clear lungs with out evidence of consolidation. No evidence of effusion. The heart size is within normal limits. Pulmonary vasculatures are unremarkable. The o sseous structures are grossly intact. IMPRESSION: No active dise ase. at 2108 Reported and signed by: Stevie Mendez M.D. CC: Rosy Hobson MD Technologist: ALON AgarwalR Trnscrd Date/Time/By: 02/14/20 19 (2108) : By: Mark Orig Print D/T: S: 02/13/2019 (2111) PAGE 1 Signed Report AB HELICOBACTER [id number] 21:07:00* Test Item Value Reference Range Interpretation Comments AB HELICOBACTER IGG (test code = HELIGAB) NEGATIVE NEGATIVE URINALYSIS [id number] 20:58:00* Test Item Value Reference Range Interpretation [...] #/LPF FEW Urine Source? Clean CatchUR HCG [id number] 20:58:00* Test Item Value Reference Range Interpretation Comments UR HCG QUAL (test code = HCGQLU) NEGATIVE This HCGQL test is NOT applicable for MALE patients.Check with nurse about probable order error.If Tumor Marker Test needed, nurse should order test "HCGTU"(Test #550.19154) Urine Source? Clean CatchURINALYSIS [id number] 20:57:00* Test Item Value Reference Range Interpretation [...] #/LPF FEW Urine Source? Clean CatchUR HCG [id number] 20:57:00* Test Item Value Reference Range Interpretation Comments UR HCG QUAL (test code = HCGQLU) Urine Source? Clean CatchURINALYSIS [id number] 20:52:00* Test Item Value Reference Range Interpretation [...] HPF NONE Urine Source? Clean CatchUR HCG [id number] 20:52:00* Test Item Value Reference Range Interpretation Comments UR HCG QUAL (test code = HCGQLU) Urine Source? Clean Catch- US ABDOMEN [id number] 20:49:00 Name: ROXANA HUERTA [facility] : 1985 Age/S: 33 / F [address] [facility] Unit #: [id number] Loc: [place], [place] [address] Phys: Ronald Hobson MD Acct: [id number] Di s Date: Status: REG ER PHONE #: Exam Date: 02/13/20192036 FAX #: Reason: RUQ and epigastric ttp EXAMS: CPT CODE: [id number] US ABDOMEN LTD 03335 ULTRASOUND: - US ABDOMEN LTD History: RUQ [...] Technologist: Arjun Ramos Trnscb Date/Time: 02/13/2019 (2048) [email or web address] Orig Print D/T: S: 02/13/2019 (2051) Probe: PAGE 1 Signed Report CBC W/AUTO [id number] 20:36:00* Test Item Value Reference Range Interpretation [...] = MDIFF) NO, ONLY SCAN NEEDED DIFFERENTIAL [id number] 20:36:00* Test Item Value Reference Range Interpretation Comments STAIN ACCEPTABILITY (test code = STN ACCEPTABLE) MORPHOLOGY COMMENT (test code = MOC) PLATELET ESTIMATE (test code = PLTEST) PLATELET MORPHOLOGY (test code = PLTMORPH) CBC W/AUTO [id number] 20:33:00* Test Item Value Reference Range Interpretation [...] = MDIFF) NO, ONLY SCAN NEEDED DIFFERENTIAL [id number] 20:33:00* Test Item Value Reference Range Interpretation Comments STAIN ACCEPTABILITY (test code = STN ACCEPTABLE) CABOT RINGS (test code = CAB) MORPHOLOGY COMMENT (test code = MOC) PLATELET ESTIMATE (test code = PLTEST) PLATELET MORPHOLOGY (test code = PLTMORPH) CBC W/AUTO [id number] 20:33:00* Test Item Value Reference Range Interpretation [...] = MDIFF) NO, ONLY SCAN NEEDED DIFFERENTIAL [id number] 20:33:00* Test Item Value Reference Range Interpretation Comments STAIN ACCEPTABILITY (test code = STN ACCEPTABLE) MORPHOLOGY COMMENT (test code = MOC) PLATELET ESTIMATE (test code = PLTEST) PLATELET MORPHOLOGY (test code = PLTMORPH) CBC W/AUTO [id number] 20:33:00* Test Item Value Reference Range Interpretation [...] = MDIFF) NO, ONLY SCAN NEEDED DIFFERENTIAL [id number] 20:33:00* Test Item Value Reference Range Interpretation Comments STAIN ACCEPTABILITY (test code = STN ACCEPTABLE) CABOT RINGS (test code = CAB) MORPHOLOGY COMMENT (test code = MOC) PLATELET ESTIMATE (test code = PLTEST) PLATELET MORPHOLOGY (test code = PLTMORPH) CBC W/AUTO [id number] 20:32:00* Test Item Value Reference Range Interpretation [...] code = BA#) K/mm3 0.0-0.2 COMPREHENSIVE METABOLIC [id number] 02:46:00* Test Item Value Reference Range Interpretation [...] due to change in reagent. COMPREHENSIVE METABOLIC [id number] 02:39:00* Test Item Value Reference Range Interpretation [...] code = ALKP) IUnit/L 45-117 CBC W/AUTO [id number] 02:01:00* Test Item Value Reference Range Interpretation [...] N MANUAL DIFF REQUIRED (test code = JUSTIN) NO - CT ABD PELVIS [id number] 11:48:00 Name: ROXANA HUERTA [facility] [place] : 1985 Age/S: 33 / F [address] [place] [address] Blvd Unit #: [id number] Loc: [place] [address] Phys: Jaime Matos MD Acct: [id number] Dis Date: Status: REG ER PHONE #: [phone] Exam Date: 01/28/2019 1132 FAX #: [phone] Reason: abd pain, diffuse cramping EXAMS: CPT CODE: [id number] CT ABD PELVIS W/CONT 77696 PROCEDURE: CT ABDOMEN AND PELVIS WITH CONTRAST [...] Signed Re port (CONTINUED) Name: ROXANA HUERTA [facility] [place] : 1985 Age/S: 33 / F [address] Unit #: [id number] Loc: [place], [place] [address] Phys: Jaime Matos MD Acct: [id number] Dis Date: Status: REG ER PHONE #: [phone] Exam Date: 01/28/2019 1132 FAX #: [phone] Reason: abd pain, diffuse cramping EXAMS: CPT CODE: [id number] CT ABD PELVIS W/CONT 56510 <Continued> MUSCULOSKELETAL: The skeleton is intact. IMPRESSION: 1. No acute abnormality demonstrated. 2. Hepatic steatosis. SL: [id number] at 1148 Reported and signed by: Mathew Huffman M.D. CC: Jaime Matos MD Technologist:Shante David RT(R)(CT) CTDI: DLP: Trnscb Date/Time: 01/28/2019 (1148) Evelin Orig Print D/T: S: 01/28/2019 (5310) PAGE 2 Signed Report COMPREHENSIVE METABOLIC PANEL [...] code = ALKP) 84 IUnit/L 20-125 N [id number] 10:26:00* Test Item Value Reference Range Interpretation Comments LIPASE (test code = LIP) 220 IUnit/L 73-393 N HCG SERUM [id number] 10:26:00* Test Item Value Reference Range Interpretation Comments HCG SERUM QUAL (test code = HCGQL) SERUM NEGATIVE NEGATIVE [id number] 10:26:00* Test Item Value Reference Range Interpretation Comments TROPONIN-I (test code = TROPI) < 0.015 ng/mL 0.000-0.045 N Negative: <= 0.045 Positive: >= 0.046 Correlation with serial results, other cardiac markers andclinical findings is necessary to determine the clinicalsignificance of this result. Results using different methodologies should not be comparedto one another as quantitative results may vary by method. [id number] 10:24:00* Test Item Value Reference Range Interpretation Comments D-DIMER (test code = DDIMER) < 215 ng/mlFEU <=500 N THROMBOSIS AND/OR PULMONARY EMBOLISM AND THE CLINICAL CUT- OFF VALUE FOR EXCLUSION (500 ng/mL FEU) OF THESE CONDITIONSIS VALIDATED BY THE GLASS INSTALLER TECHNICIAN OF THE METHOD. A NEGATIVE D-DIMER RESULT WHEN COMBINED WITH A CLINICALASSESSMENT OF LOW PRETEST PROBABILITY HAS BEEN SHOWN TO HAVEA HIGH NEGATIVE PREDICTIVE VALUE OF DVT OR PE. D-DIMER VALUES >500 ng/mL FEU ARE NOT DIAGNOSTIC FOR DVT, PEor DIC WITHOUT OTHER CONFIRMATORY TESTS AND APPROPRIATECLINICAL EUALUATIONS. CBC W/AUTO [id number] 10:23:00* Test Item Value Reference Range Interpretation [...] (test code = MDIFF) NO COMPREHENSIVE METABOLIC [id number] 10:17:00* Test Item Value Reference Range Interpretation [...] TOTAL (test code = ALKP) IUnit/L 20-125 [id number] 10:17:00* Test Item Value Reference Range Interpretation Comments LIPASE (test code = LIP) IUnit/L 73-393 HCG SERUM [id number] 10:17:00* Test Item Value Reference Range Interpretation Comments HCG SERUM QUAL (test code = HCGQL) SERUM NEGATIVE NEGATIVE [id number] 10:17:00* Test Item Value Reference Range Interpretation Comments TROPONIN-I (test code = TROPI) ng/mL 0.000-0.045 URINALYSIS [id number] 10:13:00* Test Item Value Reference Range Interpretation [...] SEEN COMMENTS: Clean Catch- XR CHEST 1 [id number] 09:09:00 FAX: Jaime Matos MD [phone] Wade: St: REG Name: ROXANA KEBEDE [facility] : [birth year] Age/S: 33/F [address] [place] [address] Unit #: [id number] Loc: [place] [address] Phys: Jaime Matos MD Acct: [id number] Dis Date: Status: REG ER PHONE #: [phone] Exam Date: 01/28/2019 09 FAX #: [phone] Reason: Abdominal Pain EXAMS: CPT CODE: [id number] XR CHEST 1 V 59387 CHEST, SINGLE VIEW H ISTORY: Abdominal pain Comparison made to 01/26/19 chest x-ray. FINDINGS: The lungs are clear. The heart size and pu lmonary vascularity are within normal limits. IMPRESSION: No active process. SL:01 at 0909 Reported and s igned by: Jordy Recinos M.D. CC: Jaime Matos MD Technologist: Laura Ellis, RT(R) Trnscrd Date/Time/By: 01/28/2019 (908) : By: Sanjana Orig Print D/T: S: 01/28/2019 (9681) PAGE 1 Signed Report - CT HEAD/BRAIN W/O [id number] 22:49:00 Name: ROXANA HUERTA [facility] : 1985 Age/S: 33 / F [address] [facility] Unit #: [id number] Loc: [place] [address] Phys: Rosy Hobson MD Acct: [id number] Dis Date: Status: REG ER PHONE #: [phone] Exam Date: 01/26/20192229 FAX #: [phone] Reason: dizziness EXAMS: CPT CODE: [id number] CT HEAD/BRAIN W/O CONT 84756 HISTORY: dizziness TECHNIQUE: Noncontrast 2.5 mm axial [...] MCDERMOTT CT CTDI: DLP: Trnscb Date/Time: 01/26/2019 (224) [email or web address] Orig Print D/T: S: 01/26/2019 (8556) PAGE 1 Signed Report URINALYSIS [id number] 22:48:00* Test Item Value Reference Range Interpretation [...] Urine Source? Clean CatchDRUGS OF ABUSE SCREEN [id number] 22:48:00* Test Item Value Reference Range Interpretation [...] Urine Source? Clean Catch- XR CHEST 1 [id number] 22:31:00 FAX: Rosy Orantes [phone] Wade: B St: REG Name: ROXANA KEBEDE [facility] : [birth year] Age/S: 33/F [address] [facility] Unit #: [id number] Loc: [place] [address] Phys: Rosy Hobson MD Acct: [id number] Dis Date: Status: REG ER PHONE #: [phone] Exam Date: 01/26/20192154 FAX #: [phone] Reason: WEAKNESS EXAMS: CPT CODE: [id number] XR CHEST 1 V 36918 REASON FOR EXAM: WEAKNESS Exam Order Date: 01/26/2019 8:54 PM Ordering M.D.: Ronald Hobson MD PROCEDURE: - XR CHEST [...] Technologist: Anurag Holcomb RT(R) Trnscrd Date/Time/By: 01/26/2019 (223) : By: Vanessa.[email or web address] Orig Print D/T: S: 01/26/2019 (0063) PAGE 1 Signed Report URINALYSIS [id number] 22:22:00* Test Item Value Reference Range Interpretation [...] Urine Source? Clean CatchDRUGS OF ABUSE SCREEN [id number] 22:22:00* Test Item Value Reference Range Interpretation [...] [place]) <300 ng/mL Urine Source? Clean CatchURINALYSIS [id number] 22:20:00* Test Item Value Reference Range Interpretation [...] Urine Source? Clean CatchDRUGS OF ABUSE SCREEN [id number] 22:20:00* Test Item Value Reference Range Interpretation [...] <300 ng/mL Urine Source? Clean CatchBASIC METABOLIC [id number] 22:06:00* Test Item Value Reference Range Interpretation [...] CA) 8.3 mg/dL 8.5-10.1 L HEPATIC FUNCTION [id number] 22:06:00* Test Item Value Reference Range Interpretation [...] reference range due to change in reagent. [id number] 22:06:00* Test Item Value Reference Range Interpretation Comments LIPASE (test code = LIP) 159 U/L 73.0-393.0 N HCG SERUM [id number] 22:06:00* Test Item Value Reference Range Interpretation Comments HCG SERUM QUAL (test code = HCGQL) NEGATIVE NEGATIVE This HCGQL test is NOT applicable for MALE patients.Check with nurse about probable order error.If Tumor Marker Test needed, nurse should order test "HCGTU"(Test #550.35396) THYROID PROFILE [id number] 22:06:00* Test Item Value Reference Range Interpretation [...] 5.5 mIU/mL HYPER : < 0.35 mIU/mL [id number] 22:06:00* Test Item Value Reference Range Interpretation Comments TROPONIN-I (test code = TROPI) <0.015 ng/mL 0-0.045 N [id number] 22:06:00* Test Item Value Reference Range Interpretation [...] ANADDITIONAL CHARGE TO THE PATIENT. BASIC METABOLIC [id number] 21:54:00* Test Item Value Reference Range Interpretation [...] code = CA) mg/dL 8.5-10.1 HEPATIC FUNCTION [id number] 21:54:00* Test Item Value Reference Range Interpretation [...] TOTAL (test code = ALKP) IUnit/L 45-117 [id number] 21:54:00* Test Item Value Reference Range Interpretation Comments LIPASE (test code = LIP) U/L 73.0-393.0 HCG SERUM [id number] 21:54:00* Test Item Value Reference Range Interpretation Comments HCG SERUM QUAL (test code = HCGQL) NEGATIVE NEGATIVE This HCGQL test is NOT applicable for MALE patients.Check with nurse about probable order error.If Tumor Marker Test needed, nurse should order test "HCGTU"(Test #550.84980) THYROID PROFILE [id number] 21:54:00* Test Item Value Reference Range Interpretation Comments T3 UPTAKE (test code = T3UP) % 30.0-40.0 T4 (THYROXINE) (test code = T4) ug/dL 4.5-13.9 T7 (FREE THYROXINE INDEX) (test code = T7) FTI 1.3-5.1 THYROID STIMULATING HORMONE (test code = TSH) uIU/mL 0.36-3.7 4 [id number] 21:54:00* Test Item Value Reference Range Interpretation Comments TROPONIN-I (test code = TROPI) ng/mL 0-0.045 [id number] 21:54:00* Test Item Value Reference Range Interpretation Comments ALCOHOL (test code = ALC) mg/dL 0-3 BASIC METABOLIC [id number] 21:52:00* Test Item Value Reference Range Interpretation [...] code = CA) mg/dL 8.5-10.1 HEPATIC FUNCTION [id number] 21:52:00* Test Item Value Reference Range Interpretation [...] TOTAL (test code = ALKP) IUnit/L 45-117 [id number] 21:52:00* Test Item Value Reference Range Interpretation Comments LIPASE (test code = LIP) U/L 73.0-393.0 HCG SERUM [id number] 21:52:00* Test Item Value Reference Range Interpretation Comments HCG SERUM QUAL (test code = HCGQL) NEGATIVE THYROID PROFILE [id number] 21:52:00* Test Item Value Reference Range Interpretation Comments T3 UPTAKE (test code = T3UP) % 30.0-40.0 T4 (THYROXINE) (test code = T4) ug/dL 4.5-13.9 T7 (FREE THYROXINE INDEX) (test code = T7) FTI 1.3-5.1 THYROID STIMULATING HORMONE (test code = TSH) uIU/mL 0.36-3.7 4 [id number] 21:52:00* Test Item Value Reference Range Interpretation Comments TROPONIN-I (test code = TROPI) ng/mL 0-0.045 [id number] 21:52:00* Test Item Value Reference Range Interpretation Comments ALCOHOL (test code = ALC) mg/dL 0-3 CBC W/O [id number] 21:27:00* Test Item Value Reference Range Interpretation [...] code = MPV) 11.1 fL 6.7-11.0 H [id number] 20:39:00* Test Item Value Reference Range Interpretation Comments GLUBED (test code = GLUBED) 224 mg/dL 74-106 H Performed by [facility] CT BRAIN [id number] 15:40:00 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 No masses, hemorrhage, acute or catcher plug ayleen cortical vascular insults. Sellar/suprasellar region: No abnormalities Craniocervical junction: Patent foramen magnum. No Chiari one malformation. IMPRESSION: No abnormalities . Signed by: DR Ronen Bailey M.D. on 06/16/2018 3:42 PM Dictated By: RONEN franco Signed By: RONEN HEWITT MD on 06/16/18 154 Transcribed By: LC on 06/16/18 1542 COPY TO: RISHABH GARCIA NP CARDIAC ENZYMES 2017-07-30 23:10:00[facility]0.02[facility] [id number] 23:10:0074[facility] LBFKYIL6212-36-34 18:42:000.7[facility] IGZGGXM7035-40-23 18:42:000.9[facility] RKICJEA9081-64-13 18:42:00< 0.02[facility] TDMQOIZ1074-12-44 18:42:0080[facility] HospitalLIPIDS 2017-07-30 18:42:0013[facility] MmxxlxidLHSIGL0056-19-27 18:42:0087[facility] [id number] 18:42:74336RV [facility] RsjihmixTLRCFM4998-63-35 18:42:0066[facility] UxubxosvQEIPUW9713-86-00 18:42:0086[facility] EuhovsehCDFNJC1746-19-56 18:42:002.16 [facility] HZRGXFF5840-73-10 15:23:0091[facility] WYHBUVT4395-39-91 15:23:000.8[facility] IYOPABW7420-01-19 15:23:00< 0.02[facility] HospitalCARDIAC PKMTQTY2984-25-38 15:23:000.9[facility] HospitalCHEM BICBD3421-45-33 15:23:16458GJ [facility] HospitalCHEM XKCXL3291-81-78 15:23:65952SL [facility] HospitalCHEM SPKFB3613-34-35 15:23:000.4MH [facility] HospitalCHEM PANEL 2017-07-30 15:23:0011.5[facility] HospitalCHEM GTYCU4441-99-99 15:23:0077MH [facility] HospitalCHEM PEGTB2188-62-03 15:23:007.1[facility] HospitalCHEM YXHMO5208-59-36 15:23:0028MH [facility] HospitalCHEM MWUSL8620-62-71 15:23:0013 [facility] HospitalCHE[facility] ZWGDL3776-34-71 15:23:003.4 [facility] HospitalCHE[facility] HZOQN4184-36-79 15:23:0014 [facility] HospitalCHEM KHEGU2710-11-00 15:23:04861KA [facility] HospitalCHEM PANEL 2017-07-30 15:23:000.75[facility] HospitalCHEM CQAQA9994-25-23 15:23:97609TE [facility] HospitalCHEM SRFIV2981-13-69 15:23:15621FG [facility] HospitalCHEM QSAPV2878-11-90 15:23:0026 [facility] HospitalCHEM KCNPB6516-35-27 15:23:003.5 [facility] HospitalCHEM AFJQJ4378-80-98 15:23:009.1[facility] HospitalCHEM PTXEU9483-01-01 15:23:003.7[facility] HospitalCHE[facility] HGWWY0617-18-79 15:23:000.9[facility] HospitalCHEM PANEL 2017-07-30 15:23:0019[facility] HospitalCHEM GYINI2298-99-63 15:23:000.11[facility] HospitalDRUG XAGCKS7909-91-98 15:23:00Negative *NA*(07/30/17 9:23 AM)[facility] HospitalDRUG LPBBPU9127-39-20 15:23:00Negative *NA*(07/30/17 9:23 AM)[facility] ERDRUG TIBTJB2048-35-92 15:23:00Negative *NA*(07/30/17 9:23 AM)[facility] HospitalDRUG UQFRII1721-75-31 15:23:00Negative *NA*(07/30/17 9:23 AM)[facility] ERDRUG DQDCOB3608-68-35 15:23:00Negative *NA*(07/30/17 9:23 AM)[facility] HospitalDRUG BZSTEK5133-45-11 15:23:00Negative *NA*(07/30/17 9:23 AM)[facility] ERDRUG FCFLFJ9890-53-56 15:23:00Negative *NA*(07/30/17 9:23 AM)[facility] HospitalDRUG JONQDR6749-31-37 15:23:00See Note *NA*(07/30/17 9:23 AM)[facility] ERVehujdnrBCYVHMLVVGRQD8135-84-15 15:23:00Negative *NA*(07/30/17 9:23 AM)[facility] SchoolNgihmncgBEFTAMQXQK3405-90-07 15:23:00* Test Item Value Reference Range Interpretation Comments PTT (test code = PTT) 30.2 s 22.9-35.8 [facility] SchoolVrbzaibbQNPBOPYJCE4309-75-17 15:23:00* Test Item Value Reference Range Interpretation Comments PT (test code = PT) 13.7 s 12.0-14.7 [facility] SchoolIlnqegeaLWPPINZIRS8057-87-55 15:23:001.05[facility] SchoolATOLOGY 2017-07-30 15:23:00<0.27[facility] SchoolIphguiudNKMLQMFXTN6143-01-47 15:23:0033.1MMorton Plant HospitalWzeykqoxPRSOZBOWVA9327-08-99 15:23:0014.8[facility] SchoolHxwqhavsNYOFDIJOKL7758-09-73 15:23:008.8[facility] SchoolKyeolkwcNAGPNYYGYQ5802-22-06 15:23:95621FY[facility] ER WYEYFAPRAG7003-00-57 15:23:0012.2MMorton Plant HospitalKyrfzhzbBJIYCZTJWV0209-32-56 15:23:00 36.7[facility] SchoolAdifwwltDQVCUGUBGE8279-32-74 15:23:004.55[facility] SchoolATOLOGY 2017-07-30 15:23:009.9[facility] SchoolJohaotebEWWGUASHIQ8379-72-72 15:23:00* Test Item Value Reference Range Interpretation Comments MCH (test code = MCH) 26.7 pg 27.0-31.0 [facility] SchoolSinnyunlGSXIYRABVN4455-68-87 15:23:0080.8[facility] SchoolATOLOGY 2017-07-30 15:23:006.6MMorton Plant HospitalZgtvihhuSSXEMDTLZS7871-23-29 15:23:002.5[facility] SchoolGpznjawbSDJUAUJNMO3231-40-41 15:23:000.1MMorton Plant HospitalLurgsonrJTYPPLZNIO9575-67-27 15:23:000.4[facility] SchoolUnedipbiBSYZFHPDTP7177-01-25 15:23:000.2[facility] LGDIAQATKG6869-11-54 15:23:0067.5[facility] ERAgitpswkLRTNDTUBBE3270-93-17 15:23:00 25.3[facility] WomenLrrvamciZHNUNSNPOH3144-38-36 15:23:002.4[facility] ERHEMATOLOGY 2017-07-30 15:23:000.7[facility] ERUgdvttmgQXZZDCFCUB6182-36-90 15:23:004.1[facility] NBGOA4659-33-60 15:23:00Negative *NA*(07/30/17 9:23 AM) [facility] QQFCM4566-14-14 15:23:00Trace *ABN*(07/30/17 9:23 AM) [facility] JEAUY9689-37-21 15:23:00Negative (07/30/17 9:23 AM) [facility] WBQGY4217-32-88 15:23:00Negative (07/30/17 9:23 AM) [facility] CZOFC7486-96-30 15:23:00<1[facility] STOOL 2017-07-30 15:23:004[facility] JTEXO2961-34-48 15:23:007.0[facility] YEKMC5241-99-73 15:23:001.006 [facility] 2017-07-30 15:23:00Clear (07/30/17 9:23 AM)[facility] 2017-07-30 15:23:00Light Yellow *NA*(07/30/17 9:23 AM)[facility] 2016[facility]09[facility]21 19:09:000.2MH [facility]CHEM SMZOP0993-21-59 19:09:19881OY [facility] CHE[facility] OCTXD8924-13-19 19:09:45224DO SouthwestCHEM MOIXD2656-72-65 19:09:000.78MH SouthwestCHEM FJSJA3204-35-45 19:09:60185GJ SouthwestCHEM AMPJX8238-34-61 19:09:0013 [facility]CHE[facility] SQIBK5176-30-49 19:09:007.3MH SouthwestCHEM PANEL 2016-09-21 19:09:003.3MH SouthwestCHEM JWTRG5416-26-61 19:09:0023 [facility] FZGBP6796-57-16 19:09[facility]0074[facility] EPNYT1279-05-27 19:09:0011MH SouthwestCHEM MUQIK8452-69-12 19:09:0020MH SouthwestCHEM LPFDH7746-46-06 19:09:008.3MH [facility]CHE[facility] XDDTK1629-04-68 19:09:93587EE SouthwestCHEM PANEL 2016-09-21 19:09:003.1MH [facility]CHE[facility] AZRCO0274-80-50 19:09:000.8[facility] CHEM KLQPS0875-44-32 19:09:0016.1M SouthwestCHEM QBMCV5578-22-13 19:09:0017 SouthwestCHEM OAHIX8814-09-03 19:09:004.0[facility] ParkCpvuabefdDEKTODNNQCUMN8361-92-90 19:09:6241340HOMission [facility] of [facility] ParkOfybjahczDGZZKPQWDF9067-22-05 19:09:000.6M SouthwestHEMATOLOGY 2016-09-21 19:09:000.2[facility] HospitalButoystutHJFDAAZAFY3497-84-51 19:09:007.0[facility] EQOVFHIBRD1244-13-72 19:09:002.3[facility] HospitalFjhbpfjvfYXPKOIDSWV4432-28-03 19:09:002.9[facility] ParkYfuvhbsyqMHSDRDDIYN3981-69-28 19:09:001.8[facility] ParkXbxrpizgpGCWRJADZZI5774-46-42 19:09:0022.2[facility] HospitalBcmmrdkczTLAESMBEGW3255-72-02 19:09:006.0[facility] 2016-09-21 19:09:0067.1M WcjwyucluJKWQRECNZF2988-97-53 19:09:000.3[facility] BFTEVMKPIO8382-29-60 19:09:009.4 FetoaczjvMNZXRQOYFX4572-05-05 19:09:0014.8 TixagutvmZBVQJGEEHJ6541-55-56 19:09:59779PZ MjsjqevlfFZPJXJCPAY6801-97-89 19:09:00* Test Item Value Reference Range Interpretation Comments MCH (test code = MCH) 26.0 pg 27.0-31.0 [facility] ParkOjrtbvebqIUSHLABJYK2005-51-72 19:09:0032.6M RglejahcxYENKKJDGWR9215-63-47 19:09:0079.8 StqzvqprwBTUEFRPDSU1799-77-45 19:09:0037.8MH SouthwestHEMATOLOGY 2016-09-21 19:09:004.74[facility] ParkCzalfsiklWLSBSTEWWB0114-50-42 19:09:0012.3MH [facility] RTHPMSYKHF1011-45-69 19:09:0010.4 SouthwestURINE AND PVRHQ3823-46-37 19:09:00 Negative (09/21/16 1:09 PM) [facility]UR[facility] AND MWTDW6825-60-73 19:09:00Moderate *ABN*(09/21/16 1:09 PM) [facility]URINE AND FVAMA1349-47-17 19:09:00Small *ABN*(09/21/16 1:09 PM) [facility]UR[facility] AND CQSMD5710-07-31 19:09:001.018 [facility]UR[facility] AND BJGVF6225-55-80 19:09:00Light Yellow *NA*(09/21/16 1:09 PM) [facility]UR[facility] AND UMRAJ8475-09-56 19:09:00Slight *ABN*(09/21/16 1:09 PM) [facility]UR[facility] HHMED5470-99-99 19:09:00Negative *NA*(09/21/16 1:09 PM) [facility]UR[facility] AND ZLHJQ4901-02-81 19:09:006.0 [facility]URINE AND STOOL 2016-09-21 19:09:003 SouthwestURINE AND UPBWU6421-27-44 19:09:0056[facility] MOLECULAR OBORMFGTKY2645-35-59 23:09:00Negative *NA*(09/16/16 5:09 PM)[facility] MOLECULAR IJVNFMCTNV4241-82-29 23:09:00Vaginal (09/16/16 5:09 PM)[facility] MOLECULAR QBYRKPAYTC3384-87-07 23:09:00Negative *NA*(09/16/16 5:09 PM)[facility] MOLECULAR NAAXZWARIC7213-93-15 23:09:00Vaginal (09/16/16 5:09 PM) [facility] VHHAP7398-59-15 21:19:001 [facility]UR[facility] AND SYFRA1129-40-26 21:19:0020 [facility]URINE AND DLPLA6066-64-79 21:19:001.015 [facility]UR[facility] STOOL 2016-09-16 21:19:00Clear (09/16/16 3:19 PM) [facility] YOLGG1061-26-24 21:19:00Negative *NA*(09/16/16 3:19 PM) [facility] EPAZI1733-78-65 21:19:005.0 [facility]UR[facility] AND SIBVB1478-94-51 21:19:00Moderate *ABN*(09/16/16 3:19 PM) [facility]UR[facility] AND WASWA7337-36-85 21:19:00Negative (09/16/16 3:19 PM) [facility] AND QOKWR0440-30-52 21:19:00Moderate *ABN*(09/16/16 3:19 PM) SoutheastURINE BCEA8658-93-20 21:19:00Positive *ABN*(09/16/16 3:19 PM) [facility] CHE[facility] JSTEL9917-13-56 21:10:60504BQ SoutheastCHEM KZBNY9822-91-76 21:10:0023MH SoutheastCHEM VEWTX8731-85-83 21:10:003.4 SoutheastCHEM DQUIH1021-71-82 21:10:0025 [facility] GSLPR1677-22-49 21:10:008.2M SoutheastCHEM PANEL 2016-09-16 21:10:007.7 SoutheastCHEM UPWWI5049-25-03 21:10:23967BM [facility] CHEM IDJFU4460-65-56 21:10:009MH SoutheastCHEM KQHDG3410-38-94 21:10:003.4 SoutheastCHEM ZONQG2821-11-82 21:10:10824LG SoutheastCHEM TCIPC5886-95-01 21:10:000.76MH SoutheastCHEM SEYPF0533-19-96 21:10:00011LB SoutheastCHEM PANEL 2016-09-16 21:10:0021 SoutheastCHEM DXOOT1342-06-18 21:10:0077 SoutheastCHEM MUKCD5633-94-47 21:10:000.4 [facility]CHEM AVXKV4363-38-85 21:10:004.3MH [facility]CHEM MRGIL3139-07-18 21:10:000.8 [facility]CHEM IUBWQ0798-71-94 21:10:0012 SoutheastCHEM ILXVR4520-27-69 21:10:0013.4[facility] WomenENDOCRINOLOGY 2016-09-16 21:10:255256IZ LxoqojvmyVJPUFXCMXY5009-13-03 21:10:002.9[facility] QHXETNDNVA2039-97-81 21:10:0028.8 McwqyuemvSPKSJBMZWC2464-48-17 21:10:005.1M ObiqlddlmESTSSZZSIT5101-44-70 21:10:000.1M BkmaaxperPNLCEUGKOP6496-84-10 21:10:000.5 DtzvsrkghRXANRKYQBR6623-69-64 21:10:000.3M SoutheastHEMATOLOGY 2016-09-16 21:10:006.3M InaxhayrhAKEHUGUNAV2582-02-63 21:10:000.6[facility] ADWWIYHXBL1922-80-22 21:10:002.9[facility] WomenQxztxevcbOMFSZLZZXH6072-01-95 21:10:0062.6M[facility] HospitalWisijeocvCOKLTLFZSH1732-86-22 21:10:[address] [place], [place] [address]UnsnmxmhdQNMGQHQMPI1613-33-30 21:10:009.3M NoldrfuogDFFRSLZCTZ0375-68-02 21:10:0014.9[facility] WomenHEMATOLOGY 2016-09-16 21:10:71040TV HxndvhhioAQEPJWGZZS2571-00-66 21:10:0080.2[facility] ZCDUTCCMTS4816-30-52 21:10:0041.8[facility] WomenKlhtoktkbGXTZRYKYFE8856-51-89 21:10:[address] [place], [place] [address]WulnhtldvDOSLDSCYQI8995-66-34 21:10:00* Test Item Value Reference Range Interpretation Comments MCH (test code = MCH) 25.8 pg 27.0-31.0 WawuesmpzKWYDUHMUAR9419-87-08 21:10:0013.5[facility] WomenMxlyhsyblENAENQLWZD2273-33-77 21:10:005.22 [facility]URINE AND OMNZK4042-85-23 05:42:143 [facility]UR[facility] AND TOKJO6533-57-76 05:42:14Moderate *ABN*(07/13/16 12:42 AM) [facility]UR[facility] AND SQFRJ2142-27-05 05:42:14Negative *NA*(07/13/16 12:42 AM) [facility] AND JEVJT0039-96-07 05:42:14Small *ABN*(07/13/16 12:42 AM) [facility]URINE AND STOOL 2016-07-13 05:42:1416MH [facility]UR[facility] AND CQRCA3580-82-76 05:42:14Negative (07/13/16 12:42 AM) [facility]UR[facility] AND OLIZF9471-32-89 05:42:145.0MH [facility] URINE AND MKKLF7803-83-28 05:42:141.025 [facility]UR[facility] AND CGRIF8703-00-93 05:42:14Slight *ABN*(07/13/16 12:42 AM) [facility]UR[facility] AND SECKN1922-54-57 05:42:14Yellow *NA*(07/13/16 12:42 AM) SoutheastCARDIAC TZUKCIB6218-85-95 05:11:000.7 SoutheastCARDIAC BTKJTVO5481-44-89 05:11:0068MH SoutheastCARDIAC XMBYQJM5450-66-36 05:11:00<0.02 SoutheastCARDIAC EOQVRHX1707-33-19 05:11:001.0 SoutheastCHEM LKBYO0134-08-29 05:11:000.3MH [facility]CHEM KHXQW7814-59-33 05:11:000.9 SoutheastCHEM CMRAO4329-98-70 05:11:007.7 SoutheastCHEM PANEL 2016-07-13 05:11:004.1MH SoutheastCHEM XXILB4259-18-08 05:11:0026MH [facility] CHE[facility] PKYTF1748-26-85 05:11:0041MH SoutheastCHEM YXIRF9266-08-29 05:11:0084MH SoutheastCHEM GOAMP8134-45-59 05:11:003.6MH [facility]CHEM GJYLV8748-07-05 05:11:0093MH [facility]CHEM PKUXT9872-74-09 05:11:79833RT SoutheastCHEM PANEL 2016-07-13 05:11:0023MH SoutheastCHEM JEVQH7325-93-28 05:11:69915QH [facility] CHEM PFKUB6785-99-51 05:11:003.6MH [facility]CHEM GAXMP5164-68-90 05:11:0020MH [facility]CHE[facility] LKVPN0412-18-54 05:11:008.6MH [facility]CHEM MIHLE2496-76-67 05:11:0013.6MH [facility]CHEM PUQYY6844-22-86 05:11:33883QK SoutheastCHEM PANEL 2016-07-13 05:11:0017MH [facility]CHEM GEVHW9562-61-97 05:11:000.84[facility] LOHQJIKKEQ7881-89-67 05:11:00* Test Item Value Reference Range Interpretation Comments PTT (test code = PTT) 30.9 s 22.9-35.8 BjjzeintmPNYKCXCHBZ0342-24-25 05:11:004.81 YiuftfkqtDHEBKLANAL1270-85-88 05:11:0014.7 JeyqtrqsbWQHOEKQTFN2333-12-67 05:11:33012NS SoutheastHEMATOLOGY 2016-07-13 05:11:0012.3M PvnejijqpPTIZAAMGTQ4664-15-06 05:11:0038.1M [facility] ILJKRJGHDG7138-15-38 05:11:0011.[facility] DblsrqwqpQJJJAEQGZE7109-86-42 05:11:009.1M RqawnefisRGWNWWKDCC5564-90-98 05:11:00* Test Item Value Reference Range Interpretation Comments MCH (test code = MCH) 25.6 pg 27.0-31.0 OyigarqrtWKMSJHFZAR6444-89-25 05:11:0032.3M MdegwecusBXSTKQBQEY1470-92-97 05:11:0079.2M OdxujgwjtARGRADGZJJ3905-94-12 05:11:00* Test Item Value Reference Range Interpretation Comments PT (test code = PT) 14.6 s 12.0-14.7 FoqlabfiqQVMSMMFCZZ2371-58-53 05:11:001.12 AftmjvqmcAQNWEXIFUP0110-71-54 05:11:00<0.22 OyluphtynHRUUUNSNNL7658-39-08 05:11:000.3M SoutheastHEMATOLOGY 2016-07-13 05:11:000.1M AxmvzirbxKLGDZNCUHT0511-67-37 05:11:006.9[facility] DKRJRMSXQW5673-71-33 05:11:002.6M FrzayhjxlCNUKRUUXWO4180-76-45 05:11:0061.7 IycexlthnMUEDMXXUIR3893-80-01 05:11:003.4 GvwzeaourGVANHQNVXA6862-59-34 05:11:000.5 PuarnnnumCUOEXNOJJN7657-84-71 05:11:000.6M SoutheastHEMATOLOGY 2016-07-13 05:11:0030.7 PbfkkbphqZBVBPNTVVM2268-16-90 05:11:004.4MH [facility] URINE PLMB7560-67-56 18:06:00Negative (07/10/16 1:06 PM)MH SoutheastCARDIAC LJKVGCX7788-88-59 22:15:001.4MH [facility]CARDIAC MZMPNQC8996-73-17 22:15:00<0.02 MH SoutheastCARDIAC ZJRBISN8609-47-51 22:15:0051MH SoutheastCARDIAC ENZYMES 2016-07-07 22:15:000.7MH SoutheastCHEM XFJQO5511-14-50 22:15:77315WB [facility] CHEM WYSXE2702-80-68 22:15:00086UZ SoutheastCHEM YKIYQ4909-81-29 22:15:0018MH SoutheastCHEM YVCGX0018-72-56 22:15:98478BY SoutheastCHEM HDFQH9108-40-79 22:15:36563SV SoutheastCHEM BEUZU2416-47-20 22:15:003.2MH SoutheastCHEM PANEL 2016-07-07 22:15:000.77MH SoutheastCHEM VNETW0605-82-07 22:15:000.9MH [facility] CHE[facility] SPCJO8305-59-09 22:15:003.8MH SoutheastCHEM BPJCA1770-35-13 22:15:003.3MH [facility]CHEM ZXMTM4554-88-31 22:15:0030MH SoutheastCHEM NPOWP9947-33-08 22:15:008.4MH SoutheastCHEM BSDOT3071-41-16 22:15:007.1MH SoutheastCHEM PANEL 2016-07-07 22:15:0083MH SoutheastCHEM LUDBG4572-96-43 22:15:0012.2MH [facility] CHEM WJWCW6354-48-55 22:15:0023MH SoutheastCHEM WKYFT3603-80-43 22:15:000.2MH [facility]CHEM HOMSM4566-46-69 22:15:0022MH SoutheastCHEM FGWVB6971-83-22 22:15:0020MH HxvfoyxhzMRCYMUJBTR3408-34-03 22:15:000.3MH SoutheastHEMATOLOGY 2016-07-07 22:15:003.3MH CbopdmkudJDFYCAGLZL2809-06-81 22:15:000.6MH [facility] HBSYBKAOXD2910-38-35 22:15:007.1MH SbwywbrurPYOGMTDFLU6484-97-32 22:15:005.1MH VfweyqeirJTWWRGETQJ6077-09-72 22:15:002.9 WutqtocdsYUNSOWENCI3044-73-68 22:15:0062.8 RjvnsfoczLNMVLBMBHE8795-54-85 22:15:0029.0 SoutheastHEMATOLOGY 2016-07-07 22:15:000.2M KfrfnriwnQAIQSKZTCN3542-84-37 22:15:00* Test Item Value Reference Range Interpretation Comments PTT (test code = PTT) 29.9 s 22.9-35.8 VnhutpdisPCKJJKBGZQ1693-10-58 22:15:001.06 UgctghsnpAOBXGGNQHZ0467-81-31 22:15:00* Test Item Value Reference Range Interpretation Comments PT (test code = PT) 14.0 s 12.0-14.7 GivoztxelRGISJAEXXR6855-87-94 22:15:78669JNShaw HospitalAxphxvlnbWBZFOEDAWL5573-83-05 22:15:008.8[facility] WomenNrpgfsuyhLPPPDZOQLP3796-06-78 22:15:0014.6M SoutheastHEMATOLOGY 2016-07-07 22:15:0032.2M DvdwnxsrgPNAWGXKCNS1498-02-02 22:15:0036.3[facility] SWPNLMVCBO3495-31-40 22:15:0011.3M[facility] HospitalYsrbsgliqLDRXZPUVTX1742-93-12 22:15:0011.7[facility] WomenCcoyllivzMDSUDOEWVB9273-90-01 22:15:004.57[facility] WomenCfnveulfhIZYRRQTSBN9294-83-71 22:15:00* Test Item Value Reference Range Interpretation Comments MCH (test code = MCH) 25.6 pg 27.0-31.0 [facility] WomenUjpszkcdnBWFOZJTEBG2135-30-62 22:15:0079.3MH [facility]URINE [facility] STOOL 2016-07-07 22:15:00Negative (07/07/16 5:15 PM) [facility]UR[facility] STOOL 2016-07-07 22:15:00Negative (07/07/16 5:15 PM) [facility] STOOL 2016-07-07 22:15:00Large *ABN*(07/07/16 5:15 PM) [facility]URINE AND STOOL 2016-07-07 22:15:0025 [facility]URINE AND PKXIU9507-68-13 22:15:00>182MH [facility]URINE AND TVCIH9539-54-59 22:15:001.024MH [facility]UR[facility] AND STOOL 2016-07-07 22:15:00Negative *NA*(07/07/16 5:15 PM) [facility] STOOL 2016-07-07 22:15:006.0MH [facility]UR[facility] AND GBGVJ0588-70-11 22:15:00Marked *ABN*(07/07/16 5:15 PM)MH SoutheastCARDIAC JERKXMW5173-85-78 00:09:00<0.02MH VlgofvpyvENYWYNGRLT9134-56-17 00:09:00<0.22MH SoutheastCARDIAC CSEXNLA1961-25-07 03:14:001.0 SoutheastCARDIAC BVDAWGQ2227-83-44 03:14:00<0.02MH [facility] CARDIAC QRQUAKO7794-53-35 03:14:0061MH SoutheastCARDIAC ATEPRZP7872-38-78 03:14:000.6MH SoutheastCHEM EMFRN9799-82-95 03:14:000.9MH SoutheastCHEM PANEL 2016-06-19 03:14:0018MH SoutheastCHEM WHJWZ6200-32-30 03:14:0022MH SoutheastCHEM ORRBO0322-47-32 03:14:0082MH SoutheastCHEM ZUIZA3511-67-42 03:14:003.9MH SoutheastCHEM OYQYB3904-96-46 03:14:000.2MH [facility]CHEM QPYTG3221-40-03 03:14:0010.7MH SoutheastCHEM AIGRU2333-54-82 03:14:0025MH SoutheastCHEM PANEL 2016-06-19 03:14:008.6MH SoutheastCHEM SQRZW4531-36-77 03:14:003.6MH [facility] CHE[facility] YRVZA6697-98-78 03:14:0034MH SoutheastCHEM TNGGR1203-03-07 03:14:007.5MH SoutheastCHEM NHNYX1306-26-50 03:14:003.7MH [facility]CHEM OYKDE5255-73-84 03:14:76986PV SoutheastCHEM GQLXP9463-91-08 03:14:79504HM SoutheastCHEM PANEL 2016-06-19 03:14:33185DC SoutheastCHEM DEUCT7226-40-49 03:14:000.78MH [facility] CHEM PQOSH9379-47-96 03:14:0017MH SoutheastCHEM YUHKY9997-77-69 03:14:65000XJSaint [facility] for WomenQtdxgfjruOICSIYXGPRJTD7322-53-68 03:14:00Negative *NA*(06/18/16 10:14 PM) AxshszybkVHTRZSWQWG9902-61-66 03:14:000.4 AkvgeyzovYLBARBTJOG5300-94-88 03:14:000.8 OtkxgraduMPLEVLFILR1672-38-79 03:14:001.4 [facility]HEMATOLOGY 2016-06-19 03:14:003.4 GemxdtiqeNCJVJXNQAB3063-69-88 03:14:007.3[facility] FOYCRIBYNR8980-37-35 03:14:000.2M JigydswioPEUXSZEXAI7853-00-06 03:14:003.0 SslpiojcaUWWFRYWKPF1199-90-03 03:14:006.3M FnvdtyvdyEXAYRMGGGF3759-21-95 03:14:0028.2M PtcbibblhTZDQBKGZMB2385-55-51 03:14:0061.1M SoutheastHEMATOLOGY 2016-06-19 03:14:0011.9 YriobyztaERZCVGPZOE5110-75-84 03:14:004.71[facility] IQFDKQPXQS7743-40-86 03:14:0011.9 TlzzlaubnRZMUJWMXDZ3839-62-69 03:14:00* Test Item Value Reference Range Interpretation Comments MCH (test code = MCH) 25.4 pg 27.0-31.0 CmqqgmjxkASNBVDXYRA4393-42-71 03:14:0079.6M NsoktzmygTMVRNDIPHC7964-96-29 03:14:0037.4 BmmowdqfkCNSMDPPXVH4426-08-16 03:14:0031.9 SoutheastHEMATOLOGY 2016-06-19 03:14:0014.[facility] DjjrkdizzHISOOVVCTP7405-71-07 03:14:30735OGSaint [facility] ZCYIKJRDZT8260-75-43 03:14:009.0 SoutheastURINE AND ZDCDZ2736-55-84 01:33:00 Negative *NA*(06/18/16 8:33 PM) [facility]UR[facility] AND BIWWB1643-06-19 01:33:00 Negative (06/18/16 8:33 PM) [facility]UR[facility] AND VILLS8195-41-27 01:33:00Small *ABN*(06/18/16 8:33 PM) [facility]UR[facility] AND ZRFOB2429-25-78 01:33:00Negative (06/18/16 8:33 PM)MH [facility]UR[facility] AND VOYXK2814-56-06 01:33:001MH [facility] URINE AND NXHJX7307-02-16 01:33:001MH [facility]URINE AND EXRIA6382-63-65 01:33:001.026 [facility]UR[facility] AND KWFKK7213-11-69 01:33:006.0 [facility]UR[facility] AND DXSQL3050-10-95 01:33:00Clear (06/18/16 8:33 PM) [facility]UR[facility] STOOL 2016-05-25 13:38:002MH [facility]URINE AND BXJZK0403-55-47 13:38:0013 [facility] URINE AND WQKEW9085-27-19 13:38:00Negative *NA*(05/25/16 8:38 AM) [facility] URINE AND VXGCU6214-64-51 13:38:00Negative (05/25/16 8:38 AM) [facility]URINE AND SNMXK9767-76-58 13:38:00Negative (05/25/16 8:38 AM) [facility]URINE AND ACWYX8541-43-38 13:38:00Large *ABN*(05/25/16 8:38 AM) [facility]URINE AND STOOL 2016-05-25 13:38:006.0 [facility]URINE AND YTRKM1769-59-46 13:38:001.014 [facility]URINE AND VTTVC6093-80-26 13:38:00Clear (05/25/16 8:38 AM) [facility] URINE NCVA0856-40-78 13:38:00Negative (05/25/16 8:38 AM) SoutheastCHEM PANEL 2016-05-25 13:31:000.9MH SoutheastCHEM PPGVX9481-25-45 13:31:003.8 [facility] CHEM DSWDZ0848-19-22 13:31:0016 SoutheastCHEM MMFCQ9279-56-07 13:31:0011.1MH SoutheastCHEM MSBYE1534-86-55 13:31:0087 SoutheastCHEM TSPGK1795-78-86 13:31:0014 SoutheastCHEM PLSTF5983-61-60 13:31:86675IO SoutheastCHEM PANEL 2016-05-25 13:31:007.1MH SoutheastCHEM WXPRH6374-18-30 13:31:0025MH [facility] CHEM MSCDK9591-73-15 13:31:008.5 SoutheastCHEM QYMWY4444-62-88 13:31:49432UZ SoutheastCHEM IZUMN6410-40-75 13:31:004.1MH SoutheastCHEM DBARP0713-81-91 13:31:46404RC SoutheastCHEM GNLPL2134-81-27 13:31:000.89MH SoutheastCHEM PANEL 2016-05-25 13:31:0085 SoutheastCHEM IQMFC6246-20-26 13:31:0014 SoutheastCHEM VILUM6308-72-96 13:31:0027 [facility]CHEM COCBU9855-55-81 13:31:003.3MH [facility]CHEM BKPGD3347-16-35 13:31:000.2MH EdpuocyppAYVXIYLLES6178-41-09 13:31:000.1MH YecxwsehzZIDRJGJOLB2581-55-84 13:31:000.3M SoutheastHEMATOLOGY 2016-05-25 13:31:000.7 MrpwjxbiaEUODVJKXNV9264-54-11 13:31:003.1M [facility] ETYPIVKANL0449-42-66 13:31:005.8 RiryjcmyfAEQMMPWFGF5331-51-09 13:31:003.2M PatqnlffyPRWVSOCZSV4404-77-25 13:31:000.8 XkasiwdiqEONFMBKMEO4267-61-95 13:31:0031.1M ZithskgbbHHXDURAVCS8287-93-24 13:31:006.5 SoutheastHEMATOLOGY 2016-05-25 13:31:0058.4 GzkmatdxyPRQDCRMKMX0432-75-13 13:31:47686AUS[facility] KIYFDSCGPC3499-30-07 13:31:009.0 YvrekciwpIQYCRYUVOK8210-86-57 13:31:0014.5 WyqcdwnzzBOFAPUODAW3469-43-54 13:31:0032.4 ZnqppmmdjREUISJNNSY0334-49-21 13:31:00* Test Item Value Reference Range Interpretation Comments MCH (test code = MCH) 25.6 pg 27.0-31.0 EfyhksrllQFWRZJUXEH7456-97-83 13:31:0079.0 TovpxzcugSAHCNVNZBL4102-95-96 13:31:0037.8MH DubtzcjriWTPLQBNFTJ8281-66-99 13:31:0012.3MH [facility]HEMATOLOGY 2016-05-25 13:31:004.79MH KdxvmckkeHHJMGFZRNE2678-75-39 13:31:0010.0MH [facility] CARDIAC XNXCEAX1686-45-30 07:43:0065MH SoutheastCHEM JLOYQ7737-45-38 07:43:000.4 MH SoutheastCHEM BRJMF4120-18-18 07:43:25325GE SoutheastCHEM TWPYN1784-52-01 07:43:12003HO SoutheastCHEM ZZVZH0483-47-15 07:43:000.75MH SoutheastCHEM PANEL 2016-04-20 07:43:0014MH SoutheastCHEM JFRKB8731-38-42 07:43:65223GP [facility] CHEM ZUKEH6475-51-90 07:43:0025MH SoutheastCHEM WQZPT1346-02-90 07:43:19465TV SoutheastCHEM IVGSF9912-24-54 07:43:003.7MH [facility] EAJQU5577-40-39 07:43:008.7MH [facility] LYUSA7949-20-70 07:43:007.3MH [facility] PANEL 2016-04-20 07:43:0073MH [facility] FINAA0061-73-78 07:43:0029MH [facility] QZUST9943-09-20 07:43:0035MH [facility] VLZTV3061-32-36 07:43:003.4MH [facility] SVEID5202-02-82 07:43:000.9MH [facility] OBFBT4144-70-26 07:43:003.9MH [facility] TYRXC1537-62-66 07:43:0019MH [facility] PANEL 2016-04-20 07:43:0012.7 QlhitvywoQGTFXHXPTV1649-44-41 07:43:000.7MH [facility] SEZFIZBSQV6141-40-71 07:43:000.3MH OtxjuldjlEBXTWBCEJF0265-27-74 07:43:0058.6MH OflibbmjuCSBRQABSYK5217-61-05 07:43:000.2MH OvdpkdmpnUUJBHJIVYC8582-88-38 07:43:0031.7 BqunqegfvKZOLTUGJYP1967-06-28 07:43:003.4MH [facility]HEMATOLOGY 2016-04-20 07:43:006.2MH AwlelvfebWHDUBROFYZ9183-61-01 07:43:002.9MH [facility] KDDQFYTTCT0250-45-20 07:43:006.6MH QfkoqshvmDUDNEOAGIB5252-50-09 07:43:004.64 OjndnyevbGUYHRYQSLD2747-71-39 07:43:0012.0 TrxlxjpxeCZJMNRKLQE9676-04-43 07:43:0010.6M RowsbxlzxKYMGHPDQDL9991-87-26 07:43:0037.1M [facility] 2016-04-20 07:43:0080.1M SvayjcfstWJUFNJJKUJ3178-46-13 07:43:00* Test Item Value Reference Range Interpretation Comments MCH (test code = MCH) 25.8 pg 27.0-31.0 VhmttoemdYWWINFTYRJ0556-71-14 07:43:0032.2M BcfglyyvoXXRZFHTDWJ3790-56-07 07:43:0014.8 DmgfdtkycUWSLJICUWL8705-47-49 07:43:19647RN [facility]MATOLOGY 2016-04-20 07:43:008.9 [facility] QHIKR2450-63-88 07:43:00Large *ABN*(04/20/16 2:43 AM) [facility] MWQIN9025-80-24 07:43:006 [facility] OEUXP6126-67-63 07:43:0049 [facility] STOOL 2016-04-20 07:43:00Negative (04/20/16 2:43 AM) [facility] STOOL 2016-04-20 07:43:00Small *ABN*(04/20/16 2:43 AM) [facility] STOOL 2016-04-20 07:43:00Negative *NA*(04/20/16 2:43 AM) [facility] STOOL 2016-04-20 07:43:001.009 [facility] YZHZQ8913-20-98 07:43:00Clear (04/20/16 2:43 AM) [facility] SOMLK6611-87-55 07:43:006.0 [facility] URINE XNJH7648-08-40 07:43:00Negative (04/20/16 2:43 AM) SoutheastCARDIAC BUEMGXC9689-95-30 01:18:0086 [facility]CHEM CNHBH6706-55-04 01:18:0014MH [facility] GJGLO3740-65-30 01:18:91103WE [facility] HOSLR4415-00-83 01:18:003.6MH [facility] CIXRJ7372-27-55 01:18:007.8MH [facility] PANEL 2016-04-19 01:18:008.4MH [facility] TPYAX4175-74-40 01:18:0022MH [facility] CHE[facility] QYKAB9400-11-82 01:18:72783KJ [facility] HOBHB3143-79-95 01:18:003.5MH [facility] IJDYX1611-45-78 01:18:04115BX [facility] CXFKW1907-93-74 01:18:000.93MH [facility] HYUYW8447-97-14 01:18:0037 [facility] PANEL 2016-04-19 01:18:0083MH [facility] KDYKL0913-62-10 01:18:000.4MH [facility] CHE[facility] WMNAU0371-81-84 01:18:0030 [facility] QXBZA0128-63-61 01:18:0082MH [facility] JRAQB8018-73-31 01:18:004.2MH [facility] LIHIA6200-17-02 01:18:0015 [facility] NRXPC3555-72-07 01:18:000.9MH [facility] PANEL 2016-04-19 01:18:0011.5 [facility]DRUG XJJDPV1459-26-09 01:18:00See Note *NA*(04/18/16 8:18 PM) [facility] QJKVRW4336-75-13 01:18:00Negative *NA*(04/18/16 8:18 PM) [facility] MYKMFQ2499-34-92 01:18:00Negative *NA*(04/18/16 8:18 PM) [facility] EOZCIA5516-22-38 01:18:00Negative *NA*(04/18/16 8:18 PM) [facility] XZZXNG9514-86-94 01:18:00Negative *NA*(04/18/16 8:18 PM) [facility] RXNTZN2970-79-24 01:18:00Negative *NA*(04/18/16 8:18 PM) [facility] EDSJAQ4162-40-76 01:18:00Negative *NA*(04/18/16 8:18 PM) [facility] XMDNMO8451-44-97 01:18:00Negative *NA*(04/18/16 8:18 PM) LywhgkrplBTRWAHKRZXJYJ4060-43-82 01:18:00Negative *NA*(04/18/16 8:18 PM) GvmewjsjwQKCKNKFPAE9936-52-77 01:18:000.7 [facility] RYAAMUUAVN4129-96-56 01:18:0073.0 JreerxdfvNACOEFTCFT5891-26-86 01:18:001.3M MrjaebigdVXOXOGUVUK5441-59-21 01:18:004.6M RdgfvxptzTIGIXAPBRA3424-67-51 01:18:0020.4 XuedjolyqWVLWNCRNEE4421-67-61 01:18:000.2M [facility]HEMATOLOGY 2016-04-19 01:18:000.1M EznrkblppTDSHVIWHJP9643-86-55 [facility] EUHJUXIFSC9708-06-26 01:18:000.6M CcwqwrondPJMSGOMLYW6900-48-11 01:18:002.5 TjcbsdhsjEJWMVEAJNS0857-42-54 01:18:0032.6M DftnnecbmKHMQUQFGUO4121-93-67 01:18:0014.9 HhuwkfdqrOAPGOMCTMM3828-68-22 01:18:17702CK [facility]HEMATOLOGY 2016-04-19 01:18:008.9 NvggunepuRHDHBFMIGL0223-97-72 01:18:004.77[facility] BRXULHUSVT9054-80-48 01:18:0037.8 XykxeupczRNKHICYBGI6731-36-52 01:18:0012.3M HlafuvrkgFCQEHAKYDN8884-89-86 01:18:0079.3M McaeahtzfATYLOHYGOW1815-15-62 01:18:00* Test Item Value Reference Range Interpretation Comments MCH (test code = MCH) 25.8 pg 27.0-31.0 MsqdaqqyoTWWYYOCUFU3380-43-21 01:18:0012.4 [facility] STOOL 2016-04-19 01:18:002MH [facility] EYVVV1732-84-03 01:18:001MH [facility] URINE AND QLKKL0829-96-43 01:18:006.0MH [facility] PBLTJ8244-42-75 01:18:001.003MH [facility] IZPMR7139-77-56 01:18:00Negative (04/18/16 8:18 PM)MH [facility] QSKRE7909-86-31 01:18:00Clear (04/18/16 8:18 PM)MH [facility] QIKEY9788-81-97 01:18:00Negative *NA*(04/18/16 8:18 PM)MH [facility] EGEOJ0872-75-96 01:18:00Small *ABN*(04/18/16 8:18 PM)MH [facility] AND YJJDZ4270-16-06 01:18:00Trace *ABN*(04/18/16 8:18 PM) [facility]CHEM JBGTD4670-58-07 21:54:25239RQ [facility]CHEM VAIBO9322-33-65 21:54:0014MH [facility]CHEM JIXVV4713-81-63 21:54:004.4MH [facility]CHE[facility] PANEL 2016-03-21 21:54:000.8MH [facility] KZXVD4121-10-57 21:54:0013.8MH [facility] SGJXQ4868-32-18 21:54:72607PN [facility]M PBDGV2848-99-78 21:54:008.0MH [facility]CHE[facility] PEWJQ0516-63-22 21:54:003.6MH [facility] MMRGT5821-73-78 21:54:0026MH [facility]CHE[facility] GQKON2997-67-57 21:54:008.6MH [facility]CHE[facility] PANEL 2016-03-21 21:54:45540QJ [facility]CHEM JVHWV1032-67-43 21:54:000.74MH [facility] CHE[facility] VWMHN3141-29-77 21:54:99958EN SoutheastCHEM ARBAW5436-28-45 21:54:0010MH [facility]CHE[facility] AOGKA5980-78-94 21:54:003.8MH [facility] XYLSO4267-63-08 21:54:0083MH [facility] UWXMP6893-31-34 21:54:76990YS [facility]CHEM PANEL 2016-03-21 21:54:0033MH SoutheastCHEM SDBCG5373-98-69 21:54:000.4MH [facility] CHE[facility] GCWSD1347-74-33 21:54:0043MH BtdjvhmatVYPSKUDRQI5410-20-10 21:54:000.1M CwbrqbmlwAPXIPCIPXX8888-96-11 21:54:000.3M RwoqulxihITFEPPQBGZ2342-24-66 21:54:000.5 MvvxjumwnFYSICCLOOK9289-02-68 21:54[facility]002.6[facility] 2016-[facility]-21 21:54:004.6M ZsamixsdfPUGWKOACFQ3475-45-24 21:54:002.8[facility] XYMJAIEYIA3059-61-06 21:54:006.3M KsnliterwWYASJHPJPQ6886-43-44 21:54:000.5[facility] WomenLsebjuusjFZPSFNRZAI5616-04-22 21:54:0028.6M ChswbpvqpTOQGUOHVNR4360-66-30 21:54:0063.7[facility] WomenBznfhgzhgAJHHHZVFCV7014-95-18 21:54:009.0[facility] 2016-03-21 21:54:39016KJ RtsfzmhisVXOFEMUTUU1687-38-38 21:54:0013.1[facility] QXUVVJOREK9458-33-06 21:54:005.07 UpnwabgtlEOJOWBBAEB4553-90-11 21:54:0040.6M YmclgbhwqEMQCQEHNOM9633-71-45 21:54:00* Test Item Value Reference Range Interpretation Comments MCH (test code = MCH) 25.8 pg 27.0-31.0 TiuvktmscLXDNFZHQNA4351-09-26 21:54:0080.0[facility] WomenKgiiwqowyRIENASDWTA2458-45-52 21:54:0015.2M CdakzgfegVXPMNSISUF6914-12-69 21:54:0032.3M SoutheastHEMATOLOGY 2016-03-21 21:54:009.9 [facility]UR[facility] HNREV5086-80-84 21:54:40117EJ [facility]UR[facility] AND VXOTI7121-66-27 21:54:0025 [facility] STOOL 2016-03-21 21:54:00Large *ABN*(03/21/16 4:54 PM) [facility] STOOL 2016-03-21 21:54:00Negative (03/21/16 4:54 PM) [facility] STOOL 2016-03-21 21:54:00Moderate *ABN*(03/21/16 4:54 PM) [facility] STOOL 2016-03-21 21:54:00Negative *NA*(03/21/16 4:54 PM)MH [facility] STOOL 2016-03-21 21:54:00Yellow *NA*(03/21/16 4:54 PM)MH [facility] STOOL 2016-03-21 21:54:00Marked *ABN*(03/21/16 4:54 PM)MH [facility] STOOL 2016-03-21 21:54:001.024MH [facility]UR[facility] XWHTE4800-11-46 21:54:005.0MH [facility]URINE XZGT1254-87-28 21:54:00Negative (03/21/16 4:54 PM) SoutheastCHEM LBZHR8330-53-41 10:30:0011MH SoutheastCHEM OWUFM1455-11-05 10:30:0027MH [facility]CHE[facility] YNCFN1935-23-97 10:30:009.8MH [facility]CHE[facility] HGENR7125-71-95 10:30:007.7MH [facility]CHEM AYRWP9857-37-58 10:30:0026MH SoutheastCHEM PANEL 2015-12-05 10:30:000.9MH [facility]CHEM WBDFV2866-27-10 10:30:002.9MH [facility] BIASP8786-15-53 10:30:003.1MH [facility]CHEM ZGQLO2467-15-74 10:30:22230YA SoutheastCHEM DKARP2611-21-39 10:30:0057MH SoutheastCHEM TAIUE7537-93-62 10:30:000.3MH [facility]CHEM BRVUD3199-79-85 10:30:0016MH SoutheastCHEM PANEL 2015-12-05 10:30:006.0MH [facility]CHEM RFTYR1691-73-01 10:30:17810JF [facility] CHE[facility] UPEAS7435-43-87 10:30:000.69MH [facility]CHEM CRHZA5788-00-03 10:30:003.8MH [facility]CHEM FSOWB5946-78-86 10:30:0011MH [facility]CHEM WXKGX3085-79-09 10:30:00869RH [facility]CHEM VVJGY6668-61-66 10:30:65838MK SoutheastHEMATOLOGY 2015-12-05 10:30:008.9MH DsvvkeueoKGMYOKHUQU0285-46-60 10:30:43517OE [facility] EHHXDCCOAY8466-57-78 10:30:0031.8 EarfxitdpHIQFTWVBUD2531-75-72 10:30:0014.8 ZmbqjvbadQPUNPAWFJV4875-52-66 10:30:0032.3MH FqfhrfkemZXVVHPEIFE8218-20-62 10:30:00* Test Item Value Reference Range Interpretation Comments MCH (test code = MCH) 25.5 pg 27.0-31.0 VdubmvpbrTHOCBEPMPA3210-10-61 10:30:0080.2MH PgxotvjxeODGXSPRQMJ1795-22-69 10:30:0011.4 GcvwdsytgBEXSKKNMCK7218-66-34 10:30:004.03 SoutheastHEMATOLOGY 2015-12-05 10:30:0010.3MH MkplczlerLOBUUIGTOQ7458-76-17 10:30:0031.4 [facility] GHTKMULIQU2283-31-04 10:30:000.7 RcgbatebdAWSQOSAQXF4239-61-62 10:30:003.6MH QvmhxzaglJIYVVAIIYB6113-13-50 10:30:006.9 DyyxiaiduSRSBRLQGJQ4314-96-41 10:30:000.5 DbafzcnizPLRLYMVHYM0172-08-13 10:30:006.5 [facility]HEMATOLOGY 2015-12-05 10:30:000.1MH JbhdpxxggIVVTFFCBFA9346-92-01 10:30:000.2MH [facility] JCUBYSGVMJ5925-80-08 10:30:0060.0 LgoqptjdvHWSRCZLPHL1958-38-00 10:30:001.6MH [facility]CHEM WXWJN9256-85-41 11:56:68477EO [facility]CHEM LLVSU2526-19-49 11:56:486.7MH [facility]CHE[facility] TJFHW0907-26-35 11:56:4812.1MH [facility]CHEM PANEL 2015-12-04 11:56:4826MH [facility]CHEM IDHLC3472-13-06 11:56:4812 [facility]CHEM ZTJNQ7445-02-97 11:56:488.1MH [facility]CHE[facility] SXQHT3796-25-32 11:56:57933MG [facility]CHEM AZSVN5263-46-21 11:56:01847ZG [facility]CHEM IYXKI1249-71-95 11:56:480.64MH [facility]CHEM QEOLL5890-57-84 11:56:488MH SoutheastCHEM PANEL 2015-12-04 11:56:484.1MH [facility]CHEM YUPAT3338-24-72 11:56:480.7 [facility] CHE[facility] ISYDD1069-95-55 11:56:4868 [facility]CHEM ZZCHX1356-34-73 11:56:483.0 [facility]CHEM ZNWDU1329-33-07 11:56:480.8 [facility]CHEM JKAQV4894-51-99 11:56:483.7 [facility]CHEM PDRMP3798-62-30 11:56:4822 SoutheastCHEM PANEL 2015-12-04 11:56:4835 [facility]CHEM GIJMN7990-07-01 11:56:24042CK[facility] UCXYKXNJBK6184-20-66 11:56:48* Test Item Value Reference Range Interpretation Comments MCH (test code = MCH) 25.4 pg 27.0-31.0 DpmnmwlanHATVDPUMQI9989-28-18 11:56:4879.7 EkocvnfrmADRLQFZLRC6476-19-73 11:56:4831.9 FeyyevfplRZOVIEMDYL4325-96-12 11:56:4835.0 SoutheastHEMATOLOGY 2015-12-04 11:56:488.8 AfmzeupiiGFIJUMTDIJ4239-76-25 11:56:4811.1[facility] PHDZQIZBQP8738-18-72 11:56:94306VE OgzcxzhgsOEFASIANWM1747-59-51 11:56:4814.9 GtpnfgltsAEYAGCSYWM8960-97-32 11:56:484.39 NdazlmjapHFYSCJBONW9301-76-26 11:56:4816.6M SvfbydrjoGZEWDFTDTI4165-77-32 11:56:480.2M SoutheastHEMATOLOGY 2015-12-04 11:56:480.3M GaniqfpcmAKABGVIFJF7943-21-17 11:56:4813.8[facility] PNLZVVMEPV3560-37-63 11:56:480.8 HlnrabiamAGFCKQDNMD9151-74-44 11:56:481.9 TqqcoazieKPXWFXYVNO2752-44-37 11:56:484.8 GammbexvkUSDSTBGXMA0885-90-77 11:56:4883.5 OhuksaojsIWIPXERURX9066-86-97 11:56:4811.2M SoutheastANEMIA OHHDZ1693-78-48 11:56:10262ZC [facility] GLXNS3096-53-55 11:56:0049MH SoutheastANEMIA LVIXM7355-61-05 11:56:0013 SoutheastANEMIA DNIAF7428-03-18 11:56:95783VO SoutheastANEMIA XRKGM8330-20-52 11:56:25129FY SoutheastCHEM PANEL 2015-12-03 10:12:002.0MH SoutheastCHEM ZWPMC0187-10-15 10:12:002.5MH [facility] CWIWIUPNOTAQ0208-75-95 10:12:0011.6MH TsnpfrtvbRZEJHPBHPVYB7296-42-64 10:12:00 3.7MH MxdqreaccJHHKCAOBDIHQ7663-56-55 10:12:0016MH SoutheastELECTROLYTES 2015-12-03 10:12:000.9MH VrggtkdtkTDKNJJQLMESF1337-07-44 10:12:13232KL [facility] OTXQMNVHJNBK0761-64-24 10:12:000.4MH HtaigfrsuAGNSHCFWGJRC4064-51-78 10:12:0072 MtrpdceixKIDVSHWSEGVF4130-80-39 10:12:0026 AddlvfvnvOZAGFKUKQMWN1636-10-08 10:12:58152DB SraezjdxmSJCAWCVKJSBT8064-05-46 10:12:0030 SoutheastELECTROLYTES 2015-12-03 10:12:0013 ViyhoujbdPZBRZJYDFBSY5994-59-01 10:12:003.3MH [facility] CTRECSPMFWAC6019-00-38 10:12:007.0 WlsvuuugtNIYBCMSFDIOL7913-49-44 10:12:008.0 FzyperrjjMSOSKGSLIFEV4900-81-46 10:12:0010 MwgmpilgdXKASPDSHPJKE6020-20-74 10:12:49531KL DiszzczjrVZFRZQMKSPQZ2745-89-11 10:12:000.62MH [facility] TWZMSEIVNMOM2491-65-04 10:12:003.6MH DuobymgbpYJLMIUJRIGYA8808-37-23 10:12:40762 UdukwanawJBDGYDGPEO9430-00-15 10:12:003.1MH NtftmrlvcPYOFVMRABO6244-58-98 10:12:0067.0 RnsyaikvtDKPHXCRGIK0526-16-01 10:12:000.7MH SoutheastHEMATOLOGY 2015-12-03 10:12:008.4MH WnnhuqtfpORBHREZZIM9051-53-97 10:12:002.6MH [facility] DKHGUYZBOJ1562-14-43 10:12:005.0[facility] WomenYityirdmfNXZLAUNGYC5464-33-25 10:12:0024.7 WsyfavjuaAHRQXIKTDC7149-87-54 10:12:000.3MH XlhmdmyrmVEXOKZWTZW9437-15-70 10:12:000.1MH IsokisvvkCBEAWCISGF0247-68-80 10:12:000.6M SoutheastHEMATOLOGY 2015-12-03 10:12:0014.9 MbmkdoudcTNHPWEKQNQ7877-46-29 10:12:18534AJS[facility] HUWPQOUAPF9673-25-99 10:12:008.8 VfskglrtbDBQFZSQHPR5461-57-08 10:12:0012.5 XhhynaoptKYMIHZIWBL6584-15-51 10:12:004.79 CzwspzhnlBDRKMKFWDJ0722-54-81 10:12:00* Test Item Value Reference Range Interpretation Comments MCH (test code = MCH) 25.4 pg 27.0-31.0 XutorfxqbTBDUVBPZYL8766-07-28 10:12:0031.7 OsfaequaoJKTYRTIEPQ3677-26-03 10:12:0080.2M BegcinumuACRPXTEWKD5566-46-20 10:12:0012.1M SoutheastHEMATOLOGY 2015-12-03 10:12:0038.4[facility] WomenCHE[facility] OEOIL0660-86-36 20:35:17448JUS[facility] KAVXBJBJVQ7279-55-31 20:35:000.2M ScpqimkirQTGETRNOIR6056-05-48 20:35:000.1M SoutheastURINE AND RXAKE3359-69-52 20:35:002 [facility]URINE AND STOOL 2015-12-02 20:35:00Trace *ABN*(12/02/15 3:35 PM) [facility]URINE AND STOOL 2015-12-02 20:35:00Moderate *ABN*(12/02/15 3:35 PM) [facility]UR[facility] AND STOOL 2015-12-02 20:35:00Negative (12/02/15 3:35 PM) [facility]UR[facility] AND STOOL 2015-12-02 20:35:003 [facility]URINE AND JMLGR0415-29-47 20:35:00Slight *ABN*(12/02/15 3:35 PM) [facility]URINE AND CLKQF7672-29-93 20:35:00Negative *NA*(12/02/15 3:35 PM)MH [facility]URINE AND SSPLA2043-13-63 20:35:005.0MH [facility]UR[facility] AND OLIXW1848-50-07 20:35:001.020 [facility]URINE LUIQ5816-33-48 20:35:00Negative (12/02/15 3:35 PM) SoutheastCHEM JGKGL7461-06-98 06:37:40525ED SoutheastCHEM JYITO2433-93-92 06:37:0025MH SoutheastCHEM CKGYW4004-32-22 06:37:000.9MH [facility]CHEM RJABS5961-63-10 06:37:003.8MH SoutheastCHEM PANEL 2015-11-10 06:37:0013MH SoutheastCHEM DSBQQ3189-59-09 06:37:0010.0 [facility] CHEM GDDWZ3718-99-95 06:37:0060MH SoutheastCHEM HHQMX9185-37-03 06:37:0025MH SoutheastCHEM QQJPK9909-83-31 06:37:000.1MH SoutheastCHEM FQKRE5989-66-43 06:37:0083MH SoutheastCHEM BPYBK1751-50-52 06:37:0010MH SoutheastCHEM PANEL 2015-11-10 06:37:75317NF SoutheastCHEM ZJNUR9619-33-02 06:37:20895GR [facility] CHE[facility] JRIUK8453-46-11 06:37:001.21MH SoutheastCHEM CQBCT1889-04-90 06:37:0016 SoutheastCHEM HDQMR4017-34-61 06:37:004.0MH SoutheastCHEM VPMJZ1996-28-10 06:37:0028MH SoutheastCHEM HJBKE3597-96-55 06:37:21853MI SoutheastCHEM PANEL 2015-11-10 06:37:007.1MH SoutheastCHEM FFLRW9197-63-15 06:37:008.2MH [facility] CHE[facility] CEAGF0830-42-59 06:37:003.3MH BfwcqlpwhGUGDUBMOFQ5424-47-91 06:37:004.60MH VlyzstgbuQZJKOYZVMH4981-81-01 06:37:0012.6MH LvfadvmkgLCNXATMQJI3596-11-76 06:37:0014.7MH FsbljsgjtLONUHAQMXX5001-49-82 06:37:00* Test Item Value Reference Range Interpretation Comments MCH (test code = MCH) 25.3 pg 27.0-31.0 MlsxolhvtMMIGGZAEJY5934-86-28 06:37:0079.7 VafcpksmzTDISGAJFYO2973-59-31 06:37:0036.7 KkaeudomlEZVMZIVGWC4224-86-83 06:37:0031.8 SoutheastHEMATOLOGY 2015-11-10 06:37:0011.7 JascferovLDRUJUNOTB7140-55-13 06:37:008.9[facility] CIWZTEURQV7000-99-70 06:37:46598ZY VsxdytaphEEYIJVAGGN4415-93-63 06:37:000.6MH ZpwohrsfrCCMIHOSRVZ9482-87-05 06:37:007.9 ImujhehuoMMMHHZCUBR8828-66-23 06:37:005.9 RugfdcmseWOOUTFTXAG4705-33-89 06:37:003.0 SoutheastHEMATOLOGY 2015-11-10 06:37:000.4 GqlsgzxscJIQUNPVOQP9329-15-84 06:37:000.7[facility] UMSNNEZCVD3678-81-13 06:37:003.4 QgjhqyxaxIZKFKGEGQC9500-93-57 06:37:000.1MH JgmyjjyxgOGPKKQWSVX7161-76-11 06:37:0063.2M WtlhsxoqmHPEVJTWZVS0700-65-60 06:37:0027.3MH SoutheastURINE AND XSLPQ3688-33-34 05:08:00Slight *ABN*(11/09/15 11:08 PM) SoutheastURINE AND IAPZS2050-60-96 05:08:001.023 [facility]UR[facility] AND ZYWQI1218-47-11 05:08:0049 [facility]UR[facility] AND SZMFA0009-32-89 05:08:006 [facility] AND XBLPT4498-36-77 05:08:00Negative (11/09/15 11:08 PM)MH [facility]UR[facility] AND MCTUJ0037-67-79 05:08:00Negative (11/09/15 11:08 PM)MH [facility]UR[facility] AND YJTRO7891-69-69 05:08:00Large *ABN*(11/09/15 11:08 PM)MH [facility]URINE AND FJXBM1265-18-71 05:08:00Negative *NA*(11/09/15 11:08 PM)MH [facility]URINE AND QZHKP4909-56-93 05:08:008.0MH [facility]URINE YSZF9961-14-08 05:08:00Negative (11/09/15 11:08 PM)MH GtgzovfuuDNSFKEZHIZ8018-95-74 05:44:00 Negative (10/16/15 11:44 PM) LrbissnvwCUYTZCMKJA4116-18-06 05:44:00Negative *NA*(10/16/15 11:44 PM) SoutheastCHEM VQFOP2829 03:39:67187GX [facility] CHEM QJTUW0495-73-56 03:39:0027 SoutheastCHEM UFSBE9216-47-53 03:39:008.5 SoutheastCHEM SEADV9545-12-35 03:39:003.2MH SoutheastCHEM UUXCC6804-38-91 03:39:004.1MH SoutheastCHEM AXOBX3659-91-67 03:39:97698TL SoutheastCHEM PANEL 2015-06-11 03:39:95513DU SoutheastCHEM DMNQF7189-43-21 03:39:000.7 [facility] CHE[facility] CFJTT9780-13-85 03:39:007.5 SoutheastCHEM VIOSD6027-52-33 03:39:02775EP SoutheastCHEM WBXVP5349-89-25 03:39:0015 SoutheastCHEM XZOVP8730-08-10 03:39:000.3MH SoutheastCHEM ZWTZK9707-15-46 03:39:0039 SoutheastCHEM PANEL 2015-06-11 03:39:0033 SoutheastCHEM IOAAG0196-86-88 03:39:0086 SoutheastCHEM FIEAT6525-39-27 03:39:0011.1MH SoutheastCHEM CAXNN6681-15-69 03:39:000.7 SoutheastCHEM YYINX7444-95-72 03:39:0021 SoutheastCHEM RREHO8319-90-00 03:39:004.3MH IqojiynpjGMEMOIYRWW6219-96-29 03:39:000.3MH SoutheastHEMATOLOGY 2015-06-11 03:39:000.1MH VgboljltlSWDAOSIULN0892-96-96 03:39:003.5 [facility] QRYRJZQDYH5816-96-80 03:39:0061.7 KjokeehadNUYXYSILTY5394-29-56 03:39:0028.9 VhilafewhUGUYATORIS7178-80-28 03:39:000.7 FjssdyipyLFXFSQWFMG4672-66-71 03:39:007.6MH RvmxmpprvCZRVAAOCVZ6943-16-55 03:39:001.0 SoutheastHEMATOLOGY 2015-06-11 03:39:002.6MH LeegyyjgqPPHKTDVZKL4286-26-43 03:39:005.8[facility] LCUKWCELUT3506-32-18 03:39:00* Test Item Value Reference Range Interpretation Comments MCH (test code = MCH) 26.5 pg 27.0-31.0 QwqamvfeqKKUZVXEJXU5619-30-46 03:39:0032.3MH VscemmxkdAISHKVVMXG1529-28-72 03:39:0013.8 YlzzjhugjWREZIQUHWH0946-24-69 03:39:0012.3M SoutheastHEMATOLOGY 2015-06-11 03:39:0082.2M DekanthhvBIKMCQFOEL2984-41-41 03:39:004.50[facility] APEBOCSWWE0053-65-29 03:39:0011.9 KphxcnxywPRCRCHOUZI0897-92-68 03:39:0037.0 CbbjrtxolBYZDQDFKTI7518-33-26 03:39:009.8 RgkoxvkjaIRJRJWBXED0983-91-24 03:39:47924UK SoutheastURINE AND WCMGP5020-04-41 03:39:00Slight *ABN*(06/10/15 10:39 PM) [facility]URINE AND WWRLE9356-89-02 03:39:00Negative *NA*(06/10/15 10:39 PM) [facility] RTJSZ6066-40-07 03:39:00Small *ABN*(06/10/15 10:39 PM)MH [facility]URINE AND ZDPJX9562-23-55 03:39:00Small *ABN*(06/10/15 10:39 PM)MH [facility]URINE AND GNKHB1811-31-47 03:39:00Negative (06/10/15 10:39 PM) [facility]UR[facility] MYLMG1887-12-95 03:39:004 [facility]UR[facility] AND STOOL 2015-06-11 03:39:004 [facility]URINE AND UWOSC6227-47-55 03:39:006.0 [facility]URINE AND KLACS3580-24-82 03:39:001.023 [facility]URINE RWHG9176-81-52 03:39:00Negative (06/10/15 10:39 PM) SoutheastCARDIAC PMJBIAC9082-37-19 19:20:0066MH SoutheastCARDIAC WYCENFR7125-38-02 19:20:0036MH SoutheastCARDIAC VUZKJQF1851-69-65 19:20:00<0.02MH SoutheastCHEM GDANV5001-88-36 19:20:07017OZ SoutheastCHEM OYDIS9534-63-67 19:20:0019MH SoutheastCHEM CTNFS5954-51-37 19:20:0099MH SoutheastCHEM UUDPA7154-34-20 19:20:009.0 SoutheastCHEM PANEL 2015-04-21 19:20:0035 SoutheastCHEM ZVRDW2755-03-96 19:20:0022MH SoutheastCHEM ZTIZM9539-96-05 19:20:0011MH SoutheastCHEM ITPGC6506-86-44 19:20:007.8 SoutheastCHEM IPRGR0828-11-22 19:20:000.8 SoutheastCHEM QYVHY6807-52-76 19:20:0082 SoutheastCHEM GNNQC5950-68-63 19:20:0040 SoutheastCHEM PANEL 2015-04-21 19:20:003.5 SoutheastCHEM NMXFM8257-18-44 19:20:000.5 [facility] CHEM YUGFV1786-57-92 19:20:89398AD SoutheastCHEM MJNXT5926-34-83 19:20:04462TL SoutheastCHEM KBVPR3777-57-48 19:20:003.6MH SoutheastCHEM PPBZY5122-30-19 19:20:29990RM SoutheastCHEM AKMCL6508-14-06 19:20:0014 SoutheastCHEM PANEL 2015-04-21 19:20:0012.6MH SoutheastCHEM SNTEW9502-05-12 19:20:000.8 [facility] CHEM PDGPP3423-94-84 19:20:004.3M UnfcmiodwJQYAHTTGCZ6302-72-19 19:20:001.03 SydqaldnfYKHVFNJXRC4609-46-81 19:20:00* Test Item Value Reference Range Interpretation Comments PTT (test code = PTT) 30.7 s 22.9-35.8 AiicijzhqBMLVZOVZOA8172-34-53 19:20:00* Test Item Value Reference Range Interpretation Comments PT (test code = PT) 13.5 s 12.0-14.7 VzpsotzuhEPEHMNMZPH8740-53-13 19:20:0038.9 WqcecrtawOIBCVCCJPE1392-46-34 19:20:0013.0 JoupoobywCOMWTPSZKW0222-07-61 19:20:004.71 SoutheastHEMATOLOGY 2015-04-21 19:20:009.4 ZxzauchwkCEYZFTJSNT8525-57-14 19:20:0082.7[facility] CAUJUXXHBH5255-19-50 19:20:45719SM YcboognoiOYNRCSLJHT5911-46-77 19:20:0014.4 QerziiypqXWYTHEUDGY2553-70-87 19:20:0033.5 LhsoxqnmdUIDPWRQQYG7700-04-17 19:20:00* Test Item Value Reference Range Interpretation Comments MCH (test code = MCH) 27.7 pg 27.0-31.0 WeldauxmmHBPDHYFYLK0031-29-40 19:20:009.1M PoyjfzvsxUVFLZKNSRI4418-19-99 19:20:006.1M BalvjpyrcPDHMDUZGFS7098-53-51 19:20:001.0 SoutheastHEMATOLOGY 2015-04-21 19:20:000.2M IceexzpmeBSSAJNMAZX5478-63-49 19:20:000.5[facility] WHCGAEKWNY4032-77-08 19:20:002.5 YmrsjovmoMTVVDGLLOK1754-84-67 19:20:001.8 OxemqmxfuFGMTJCCUGV9393-78-25 19:20:005.0 AzbutsfpuXUPRECHKBF5686-75-42 19:20:000.1M OfradsusdDZGKLYJHAN6274-86-86 19:20:0027.0 [facility]HEMATOLOGY 2015-04-21 19:20:0065.2M [facility]URINE AND CWQPV0013-21-12 19:20:00Negative (04/21/15 2:20 PM) [facility] NEPOY8084-03-84 19:20:00Large *ABN*(04/21/15 2:20 PM) [facility]UR[facility] AND YXFDF8051-13-93 19:20:00Negative *NA*(04/21/15 2:20 PM) [facility]UR[facility] AND GBNWI6096-29-09 19:20:001.015 [facility]UR[facility] AND GAEDT0631-07-98 19:20:005.0 [facility] STOOL 2015-04-21 19:20:00Slight *ABN*(04/21/15 2:20 PM) [facility]URINE AND STOOL 2015-04-21 19:20:0076 [facility]URINE AND TKQTN7660-10-42 19:20:0011 [facility]UR[facility] AND UAVNH8642-98-09 19:20:00Large *ABN*(04/21/15 2:20 PM) SoutheastURINE TESU1974-57-77 19:20:00Negative (04/21/15 2:20 PM) [facility] MOLECULAR JEBOCQWNTH2011-25-14 05:25:00Negative *NA*(04/19/15 12:25 AM) SoutheastMOLECULAR RYGYBXHVXY6440-55-23 05:25:00Endocervix *NA*(04/19/15 12:25 AM) SoutheastMOLECULAR JPPAQZRBZH1539-05-49 05:25:00Negative *NA*(04/19/15 12:25 AM) SoutheastMOLECULAR PKDANUPZDY1070-58-42 05:25:00Endocervix *NA*(04/19/15 12:25 AM) SoutheastCHEM KDOAN2123-78-10 04:16:0099 [facility] CHEM ZMKNR7910-20-59 04:16:003.5MH SoutheastCHEM PXWLF8176-84-05 04:16:85387DR SoutheastCHEM ACCYY5953-72-87 04:16:000.8MH SoutheastCHEM AFFWB5619-63-47 04:16:008.0 [facility] JJSNA3457-55-02 04:16:51237VK [facility] PANEL 2015-04-19 04:16:0033MH [facility] JAFMU9231-57-64 04:16:0018MH [facility] JRTNU1367-47-45 04:16:0024MH [facility] VQFEE4200-72-93 04:16:0024 [facility] TUCDN6313-10-39 04:16:000.3MH [facility] RBSAQ1298-45-81 04:16:0087 [facility] DOXMS9211-12-14 04:16:007.2MH [facility] PANEL 2015-04-19 04:16:003.3MH [facility] MZMON6482-08-88 04:16:90291XG [facility] PMPNE0528-86-61 04:16:003.9MH [facility] FIFPV0540-95-61 04:16:000.8MH [facility] NDMNS9233-04-28 04:16:0011.5 [facility] POGPN8142-49-79 04:16:0022MH [facility] MILXZ6738-84-34 04:16:0021 [facility] PANEL 2015-04-19 04:16:15562GQ GihfkeomvJLTKJFTSIL8009-91-04 04:16:000.2MH [facility] BOLEBWSPOB5540-79-85 04:16:007.0 HpvjqvalqHZVNISFVLP5962-92-71 04:16:001.9 YixgsqfrkMHJAGNISYA7950-38-54 04:16:000.5 WhfhgavssFNBKXQXFRV6402-17-80 04:16:000.1MH XzkbichvzHMIZQEXEDS4258-78-74 04:16:005.7 [facility]MAT[facility] 2015-04-19 04:16:003.4 ZhbvrewgkQPHTCEPXWF1890-85-83 04:16:000.6MH [facility] JPUJZTKSLS9026-36-90 04:16:0061.8 YholjviioKSVZXVMOJL2329-18-30 04:16:0030.1MH SwbnlehnuNPKBGGHENN4507-91-87 04:16:0011.4 EheagxqglKRZBUFHYTV8338-81-91 04:16:004.40 IcaisoxfnESSNQPITHK1351-06-24 04:16:0013.9 [facility] 2015-04-19 04:16:58000UI ThmkxdmfxPEMXRESVYK0546-01-12 04:16:009.0 [facility] BIGQTLZMCG8614-04-55 04:16:0012.1M TvxzxscjiZZUSVLJACB2874-67-16 04:16:0036.7 QapeahqtxTNGAROQCMF2717-06-65 04:16:0083.4 EmbxvulyuZXXQMPFBLP7377-26-24 04:16:00* Test Item Value Reference Range Interpretation Comments MCH (test code = MCH) 27.5 pg 27.0-31.0 LnssagpbwQEVKBVNNLJ0652-71-59 04:16:0033.0 [facility] STOOL 2015-04-19 04:16:00Marked *ABN*(04/18/15 11:16 PM) [facility] STOOL 2015-04-19 04:16:00Yellow *NA*(04/18/15 11:16 PM) [facility] STOOL 2015-04-19 04:16:00Negative *NA*(04/18/15 11:16 PM) [facility] STOOL 2015-04-19 04:16:006.0 [facility] HTQDD3739-80-39 04:16:001.024 [facility] TEZZN8262-78-10 04:16:0023 [facility] STOOL 2015-04-19 04:16:001 [facility] JMVAW6780-98-59 04:16:0040 [facility] SYXUZ8361-55-36 04:16:00Large *ABN*(04/18/15 11:16 PM) [facility] SETHF4792-86-22 04:16:002.0 [facility] FFCIP3877-28-10 04:16:00 Negative (04/18/15 11:16 PM) [facility] RPSMP8196-30-00 04:16:00Small *ABN*(04/18/15 11:16 PM) [facility] QFQB4893-28-67 04:16:00Negative (04/18/15 11:16 PM) VrspjajswMXIMKHZBTR4134-96-29 00:37:001.1M [facility]HEMATOLOGY 2015-03-10 00:37:005.4 ToqmmsahmMIRSOROLNG2585-77-98 00:37:0026.4[facility] LSZCNNVZFY8207-90-62 00:37:0065.0 QwykshetbGHUZBRYPTG7965-13-35 00:37:002.1MH UufbxpjdjSTIGOPKHXB0151-13-34 00:37:003.2M KquwxuwrnYQKDQZAFHV8099-75-58 00:37:008.0 WcixagygsEMLQGMPYAU9731-33-86 00:37:000.3M [facility]MAT[facility] 2015-03-10 00:37:000.7 KggzwfazrOIPHOKLYUD9966-81-34 00:37[facility]000.1[facility] PSKCFQSZYE8430-68-16 00:37:0083.5 UqmhikwhzZBIEBTQUDS5668-51-30 00:37:0035.6M[facility] HospitalBvlbzdublGRQLEHOPHS5505-94-38 00:37:00* Test Item Value Reference Range Interpretation Comments MCH (test code = MCH) 27.5 pg 27.0-31.0 PskuifkzwFYGNABITCA6847-21-67 00:37:0014.7[facility] WomenZmolaabhfKHBLIOPVWA4050-20-91 00:37:0032.9[facility] WomenOneidkkbzXJOOYEBCGZ9656-60-49 00:37:0012.2[facility] HospitalHE[facility] 2015-03-10 00:37:0011.7[facility] WomenJpdyzgwziMWQFOTREWJ6379-95-23 00:37:004.26[facility] AWNDLPHDTF1586-16-12 00:37:49590ABSaint [facility] for WomenFnuwlkluyGODEZAQBXK6536-76-88 00:37:008.8[facility] WomenMOLE[facility] KCVLNJSQOQ5232-85-94 22:30:00Urine *NA*(03/09/15 5:30 PM)[facility] HNCVAZDQMQ1277-57-99 22:30:00Negative 3*NA*(03/09/15 5:30 PM) [facility] DPSTN9830-86-06 22:30:003 [facility] STOOL 2015-03-09 22:30:0011 [facility] CHDTG1267-17-91 22:30:006.0 [facility] INYHF1936-58-88 22:30:00Moderate *ABN*(03/09/15 5:30 PM) [facility] UAAZU2684-72-60 22:30:00Negative (03/09/15 5:30 PM) [facility] XFEXI6730-90-39 22:30:00Yellow *NA*(03/09/15 5:30 PM) [facility] SHGRA8613-94-75 22:30:00Clear (03/09/15 5:30 PM) [facility] CRGHB6780-94-54 22:30:001.025 [facility] NYRIA0953-99-37 22:30:00Small *ABN*(03/09/15 5:30 PM) [facility] UXSSA6476-20-05 22:30:00Negative *NA*(03/09/15 5:30 PM) [facility] CTZB8032-24-91 22:30:00 Negative (03/09/15 5:30 PM) [facility] MVFHX4855-15-91 22:25:0099 [facility] PGRRN3811-02-91 22:25:009.0 [facility] YKVIJ5508-49-54 22:25:008.4 [facility] UPQZD7131-52-34 22:25:0027 [facility] PANEL 2015-03-09 22:25:70952YO [facility]CHE[facility] LDVQE8351-92-52 22:25:0014 [facility] HZWPX3399-11-90 22:25:000.8MH [facility] SGNSE3215-75-75 22:25:004.0 [facility] HWKMP5077-73-46 22:25:67791SJ [facility] JGVGA3190-50-38 22:25:95803WM [facility] VAVAP5351-81-31 22:25:002.0 [facility] HTXDJ4093-77-30 15:24:00Trace *ABN*(11/04/14 9:24 AM) [facility] STOOL 2014-11-04 15:24:004 [facility] BBXNI9680-68-83 15:24:001 [facility] IDORE1155-73-58 15:24:00Negative *NA*(11/04/14 9:24 AM) [facility] OKOBE8552-66-65 15:24:00Small *ABN*(11/04/14 9:24 AM) [facility] NYFWO1411-50-41 15:24:00Negative (11/04/14 9:24 AM) [facility] SVVQQ5314-54-66 15:24:00Clear (11/04/14 9:24 AM) [facility] STOOL 2014-11-04 15:24:001.014 [facility] AND QEPPQ4915-91-31 15:24:005.0 [facility] SMRS2447-80-26 15:24:00Negative (11/04/14 9:24 AM) [facility] VGCGG6617-44-76 15:18:77138ZT [facility] VKPCU7565-96-80 15:18:78763GV [facility] IJRVT1480-93-21 15:18:0013 [facility] UNICV9182-06-13 15:18:0029 [facility] LJKGJ5936-39-24 15:18:0045 [facility] PANEL 2014-11-04 15:18:000.7 [facility] FCHIN3379-94-29 15:18:006.6M [facility] WCZCP2061-67-72 15:18:003.0 [facility] QJQPU8682-70-28 15:18:000.3M [facility] OAFGM3245-34-39 15:18:0074 [facility] JTPAE6035-92-92 15:18:0021 [facility] ADKUP1011-42-96 15:18:94554CD [facility] PANEL 2014-11-04 15:18:79141BU [facility] UFGVR7071-28-56 15:18:004.3M [facility] QPNME5533-31-13 15:18:78009KZ [facility] SNBPB7846-89-94 15:18:008.0 [facility] CUCFP4418-44-87 15:18:003.6M [facility] KICRR5308-85-55 15:18:000.8 [facility] FRPKF6271-01-50 15:18:0019 [facility] PANEL 2014-11-04 15:18:006.3M PmgsuiwefKLYKZHBBMK6049-88-21 15:18:000.5 [facility] RPNMPQENAW2215-72-21 15:18:005.5 XdidpcdraYZNUBZYQSZ1708-24-70 15:18:003.0 TfdklnqgfJNCESHDFJX1757-39-25 15:18:000.7 YhzgtcttzMNGZRWVOFZ9333-25-41 15:18:000.1MH BcgrgmmjvXFCYXYSCTK8392-89-73 15:18:005.5 [facility] 2014-11-04 15:18:002.0 HtfrabarqYRGHBNHTRE5821-94-29 15:18:0059.7 [facility] WQQEIAIDKK8604-29-91 15:18:0032.1M GyzwetubyXCRQEWNBHN8047-86-23 15:18:000.2M WppznlaamEVVTXOXLKE4343-39-14 15:18:009.3M DfkcibkypQWGEOCEPDV6104-93-92 15:18:0082.7 ToloewqnbFBPDARUKIU6005-92-20 15:18:0036.9 [facility] 2014-11-04 15:18:0012.3M PzpqliszrZQNBYRFERI9261-24-18 15:18:004.46[facility] NINNHWYCIC5651-57-33 15:18:00* Test Item Value Reference Range Interpretation Comments MCH (test code = MCH) 27.5 pg 27.0-31.0 OvbpdazkbJSBKXEZBET2245-82-72 15:18:008.8 ZeqxeudqfYAXITEIVVX9773-18-89 15:18:95961UG MuoodtpxcRVJIYLDHZQ5596-23-18 15:18:0014.0 [facility] 2014-11-04 15:18:0033.2MH [facility] SAISD0314-21-35 14:37:00Marked *ABN*(10/30/14 8:37 AM) [facility] JGYVS2556-52-12 14:37:00Yellow *NA*(10/30/14 8:37 AM) [facility] ICFEG6710-54-24 14:37:005.0 [facility] CLIKM5177-25-15 14:37:001.029 [facility] STOOL 2014-10-30 14:37:00Moderate *ABN*(10/30/14 8:37 AM) [facility] 2014-10-30 14:37:004 [facility] FEECJ0001-33-52 14:37:0021 [facility] URINE [facility] WNVGA9239-56-10 14:37:00Negative *NA*(10/30/14 8:37 AM) [facility] DCRUC4461-74-54 14:37:00Negative (10/30/14 8:37 AM) [facility] ANOZP4117-17-85 14:37:00Moderate *ABN*(10/30/14 8:37 AM) [facility] HUCK3413-71-53 14:37:00Negative (10/30/14 8:37 AM) SoutheastELECTROLYTES 2014-10-30 14:17:16805BA IxiwnwsxtRJYVCESNARAN4102-38-57 14:17:06124MJ [facility] FTFGXCAOCLDS1870-27-31 14:17:003.8 WnxzgkykeIIVIEVYOZVFQ5884-83-89 14:17:008.3 GxsgpqypcABLRLSOBDBFZ5959-78-62 14:17:02615PC YqymltyjvERTRMIXSDJNU3692-24-30 14:17:000.7MH ArvsbldvlATGWFEKNODBD4264-64-02 14:17:0023 SoutheastELECTROLYTES 2014-10-30 14:17:003.4 WcfgnmgwmWSETEEXFJEPQ5697-90-06 14:17:0031 [facility] OBQFVMPGBXVP6951-58-10 14:17:0085 SsyqjvyrlUNJXWGMORYNM1546-42-54 14:17:0022 PpykgtvikXKRAKLTLQVMV3672-19-31 14:17:007.4 YcmyestmuDUCYCVGBDSCS2454-86-57 14:17:000.3MH RucxtncriWNMEVGYNAKPI2046-23-59 14:17:72296MB [facility] CPPOUWHXWGXQ5124-91-44 14:17:0014 NvsfdeygeHJIFJIWRLBWQ7613-32-63 14:17:000.8 HcfmtdznmSEVUDOQVSHSA3634-08-41 14:17:009.8 DbuprsdwtFOEHQOUCSMXE4192-18-12 14:17:0020 XmtvhjyawPOIMZMQZQJUI7415-25-04 14:17:004.0 [facility] 2014-10-30 14:17:000.8 IjkxeggwxISVAXFQMTU7126-85-40 14:17:006.0[facility] NFOHTQCLUC9508-37-32 14:17:000.6M ZwxphepkoSXSJOCKFEA6858-38-43 14:17:001.8 LbgvftueqUJKZHYIAJG5558-16-75 14:17:000.2MH BqmarfxpaTMUXEYCGEA5817-85-96 14:17:000.1M XvmeabfoaAPYXUXTZRT5802-75-92 14:17:002.8 [facility] 2014-10-30 14:17:007.1M UlgcxhduoESEQUNJUAR1836-11-63 14:17:0068.8[facility] PNIPTGTIUP8853-26-86 14:17:0020.5 KkbhwtqekPNRTNHJBEG3828-71-64 14:17:008.7 XtwudnjcwUSMSKYALYW1714-39-71 14:17:004.70 LhhcwwhmuMFTPNKMMJN9910-56-42 14:17:0012.8 KwxnhutlcUJKALRBMYA3074-69-73 14:17:0038.8 [facility] 2014-10-30 14:17:0082.6MH OrouzpowzICFKEPZMRI3481-70-21 14:17:00* Test Item Value Reference Range Interpretation Comments MCH (test code = MCH) 27.2 pg 27.0-31.0 FzkdnxwyjUUTECBFAQU2459-79-57 14:17:0032.9 CmxvvdxocBQDXZYUFTL0209-04-20 14:17:0014.3M RcqbdqkluWEGLMNYRZL1830-86-92 14:17:36692AE [facility] 2014-10-30 14:17:008.7 [facility] EVHCN7915-73-10 14:40:002MH [facility] HQRNQ8085-76-28 14:40:0011 [facility] ST[facility]OL 2014-06-23 14:40:00Small *ABN*(06/23/14 9:40 AM) [facility] ST[facility] 2014-06-23 14:40:00Negative (06/23/14 9:40 AM) [facility] STOOL 2014-06-23 14:40:00Small *ABN*(06/23/14 9:40 AM) [facility] STOOL 2014-06-23 14:40:001.015 [facility] OIYCU8218-14-43 14:40:00Slight *ABN*(06/23/14 9:40 AM) [facility] SDLXB5200-12-54 14:40:005.0 [facility] EDRGL2698-55-49 14:40:00Negative *NA*(06/23/14 9:40 AM) [facility] GKIF9225-82-68 14:40:00Negative (06/23/14 9:40 AM) [facility] CHEM TKLFM6312-32-48 13:54:72327FR SoutheastCHEM JKOHX7678-29-82 13:54:54191HY [facility]CHEM ZIEYD2745-90-94 13:54:003.8 [facility] EMAGV4383-56-15 13:54:0024 [facility] UJITQ7953-55-57 13:54:008.4 [facility]CHEM PANEL 2014-06-23 13:54:0012 [facility]CHE[facility] DKMAV0559-58-61 13:54:73102PR [facility] GRMAI5084-22-92 13:54:30856RB SoutheastCHEM MSSIT3655-20-18 13:54:000.7 [facility] GNAVX1007-82-03 13:54:0010.8[facility] WomenFeizaylzqEVIACCTDHAXJK9991-91-08 13:54:00Negative *NA*(06/23/14 8:54 AM) GzzncvtieHFRULEUBVD3580-48-88 13:54:00 0.3M RgjlgiwhfNGAOANIDOH8227-09-70 13:54:000.5 BjvlhbjnmZROGQMZNST6966-78-41 13:54:000.1M TscmnraimDCODHTSZMV5157-42-02 13:54:0028.8 [facility] 2014-06-23 13:54:0062.7 FzujvqrbeQIBBTDJXOV2770-99-36 13:54:002.7[facility] ZDAPHZCWAN6513-25-48 13:54:005.1M DrusxukonODXARBHHOW4979-13-00 13:54:000.7 AccgzjvahJUURURQEIX3241-34-09 13:54:006.3M VvxlbnzqmBKHFHWOOJH8759-82-76 13:54:002.9 IhqtpdmjyMOORZWRTNQ6162-69-88 13:54:0032.3M [facility] 2014-06-23 13:54:0014.2M CaujllxduIMOPITDZKV2743-95-33 13:54:00631Y[facility] ETKRFAQDSJ0682-41-34 13:54:008.9[facility] WomenNsvfrthejXCIVZGTDWM7360-83-15 13:54:0083.5 EqildfajeVESCMQVMKH3469-33-67 13:54:00* Test Item Value Reference Range Interpretation Comments MCH (test code = MCH) 27.0 pg 27.0-31.0 OstrjlwnfHYUGPJEPLU4827-53-30 13:54:0036.7 WnxnijtalGIFKIUCFOH9721-37-26 13:54:004.39 NwuzuthuoAUUNXSDCEI4580-97-85 13:54:0011.9 [facility] 2014-06-23 13:54:0010.1M CkoegxunrGTHDWIXLE6569-82-23 03:57:04739KHS[facility] IEIYPMQXP5245-79-14 03:57:0013[facility] WomenKlaakfubsXNJGPIROC6513-68-63 03:57:009.9 UupgviwhjCYUWNSVKF3153-46-92 03:57:003.8[facility] WomenHmplqaoyyQTCDHUXWU4668-75-74 03:57:00 0.9 TkhupqtsrRGWFRCYHX6631-30-53 03:57:03168MS DfixcluhyMSUDECXJJ4742-64-03 03:57:0012MH CowidmancIJMITDDUH6474-90-64 03:57:000.9 [facility]CHEMISTRY 2012-07-09 03:57:0027MH AfwnmqdhiCGBGCSQRS2672-71-52 03:57:008.3MH [facility] MQURWFSKM4521-96-07 03:57:37172HY XhhpehrmjUDFCYKXRX8422-03-57 03:57:003.9 JoxwcvjbfONMYLQNST8810-14-47 03:57:29191SM LhmfiqigtGTJQAORSB6980-95-29 03:57:00 3.3MH WfhulwlyrTDTJXLFKG3430-93-38 03:57:0088 RvijadlovSXYORDSDN5860-18-80 03:57:0082 EpstgbdaeUCWZIRNBG7959-40-18 03:57:000.2M [facility]CHEMISTRY 2012-07-09 03:57:0029 DpwewjkjpEFTKXXZGP8407-97-42 03:57:007.1MH [facility] GFCAYWGVV7355-48-20 03:57:0019 EgttomyfnPQRESRCYME7165-18-56 03:57:003.4 VwcxvsdpiJMCFAMFCFI9867-33-91 03:57:000.2MH OnaudaubrGODWQPIHWD4082-87-52 03:57:000.0 ZinqqpaxiDLRJNEULVX5024-97-78 03:57:000.6M [facility]HEMATOLOGY 2012-07-09 03:57:005.5 UsivzkchkKHZPDVBHMU2356-45-27 03:57:006.6MH [facility] SGXERKMMEU1909-77-93 03:57:0034.9 ZqomwbyxySPNFITIPWW2340-47-71 03:57:0056.4 OhozkyjofGONGPLVPUV7911-16-55 03:57:000.4 CvpfzczxuVZUQVQIYGX0298-41-97 03:57:001.7 IiiaqddlhFKPQDXTKHV3101-22-29 03:57:009.8 [facility] 2012-07-09 03:57:0084.0 ZycwefsltIIYLKMRUKM7235-93-46 03:57:00* Test Item Value Reference Range Interpretation Comments MCH (test code = MCH) 27.9 pg 27.0-31.0 N KgsetrppiENAWASEZWD2851-69-24 03:57:009.0[facility] WomenUbydsudafWLXCFCZYGE8660-19-88 03:57:0011.8[facility] WomenXhhljldxdMPLXLSRISV8386-83-11 03:57:004.22[facility] WomenHE[facility] 2012-07-09 03:57:0035.5[facility] WomenFrhmhauuzHNBBCNDEUC2054-61-35 03:57:0033.2[facility] TKOYMPRUQE0162-74-68 03:57:0014.5[facility] WomenHilnavkufOHKWAWEBSX0785-49-03 03:57:04000VQSaint [facility] for WomenOeucnqablMURAOIQFI6825-88-21 03:53:00Negative (07/08/2012 22:53:00) [facility] WomenJchzonunmYQWQEFSGAP9086-35-09 03:53:000.2M[facility] HospitalWaxvczggaUCMOAYNCQF8801-74-55 03:53:00Negative (07/08/2012 22:53:00) [facility] WomenXeddqrolpUOMHCLHNEY1525-34-89 03:53:00Negative *NA*(07/08/2012 22:53:00) [facility] WomenGnsqjadtwKGUWXVLYHJ7384-06-94 03:53:00Small *ABN*(07/08/2012 22:53:00) [facility] WomenRjzcxzupuFBHKWQAMTP2619-50-12 03:53:00Negative (07/08/2012 22:53:00) [facility] WomenAfsgkgbrgKNUNPCRLZP3909-88-03 03:53:00Negative *NA*(07/08/2012 22:53:00) [facility] WomenThrewqiekFXFZJADFND8347-00-35 03:53:00Negative (07/08/2012 22:53:00) [facility] WomenTqyxkuivwJAPXBGUEGM7663-27-60 03:53:00* Test Item Value Reference Range Interpretation Comments UA pH (test code = UA pH) 7.0 1 5.0-8.0 N [facility] WomenYfsyslwtaEUNRMGJTKF2911-62-03 03:53:00Negative (07/08/2012 22:53:00) [facility]RCYKFMOLTA8342-68-55 03:53:00Yellow *NA*(07/08/2012 22:53:00) [facility] WomenOkfmokvrcHXXDBJAIMH5133-89-39 03:53:00Clear (07/08/2012 22:53:00) [facility] YQRWUGTUJM6886-25-37 03:53:00* Test Item Value Reference Range Interpretation Comments UA Spec Grav (test code = UA Spec Grav) 1.025 1 N CffgslvyuGFPRVBPXHX7596-50-44 03:53:00Many /LPF *ABN*(07/08/2012 22:53:00) QnouatuptYRARNPHQPT9301-94-08 03:53:002 HppkvshicITHCMQKKJM9079-34-71 03:53:00Few /HPF *NA*(07/08/2012 22:53:00) XgqsqohmtJJPXHKSIBM9853-88-21 03:53:00Few /LPF *NA*(07/08/2012 22:53:00) AwrgjwaynPBCNYULDQF8294-55-11 03:53:008 QzkntjhzeYVYJILXUL8374-33-96 13:19:00Negative (04/22/2012 08:19:00) MjaeqsfiaYCCFDTITR1531-20-62 13:45:00Negative (04/16/2012 08:45:00) KnbexdjanAAMEHQYRP0555-44-28 13:45:0012.0 YozjbzltcQQDDATQWX1693-44-28 13:45:001.0 IcbuhlxdnAZROEAVNB7115-15-24 13:45:0013 [facility]CHEMI[facility]Y 2012-04-16 13:45:008.4 CphqeiumuIPWSYURWP0629-74-64 13:45:0024[facility] IPLIXLDCL1882-68-14 13:45:80398LA RrffuyimnSIVWQWNFY6787-54-60 13:45:004.0 PqfqydmmqPBMFJBNFD9146-40-90 13:45:27051GW JdcdootibKYHSZFEZS2650-47-80 13:45:00 107 DqilkensxJKJQQFSCUH2448-88-13 13:45:0082.7 IlmudxtxiTSJCNQQPXE7887-84-04 13:45:0014.4 FuhtxdxnhVTTZFOJANG3154-14-25 13:45:00* Test Item Value Reference Range Interpretation Comments MCH (test code = MCH) 27.5 pg 27.0-31.0 N LiuqoxohwXNKZSQJHSP2526-78-06 13:45:0033.2M NedgiamxyNXZSBJKNVN0323-63-42 13:45:0037.5 OydemvoolHKUEKIOYHD9837-80-34 13:45:008.7MH [facility]HEMATOLOGY 2012-04-16 13:45:0012.4 AskoukpqxSEGJMEALQW6624-77-85 13:45:004.53[facility] FIWLCVJURP4645-77-66 13:45:57460XBSaint Margaret[facility] Hospital for WomenGzhqslhxgLROSBIBTBV4869-99-65 13:45:008.9[facility] WomenYjocfwhubRAJEWQDGVW9170-98-57 13:45:000.0[facility] WomenNtfowogeoNGNSAHRPSJ2270-88-38 13:45:000.6M[facility] HospitalUnzqsxponBRFQSZSGMZ0065-97-87 13:45:000.1M[facility] HospitalHEMATOLOGY 2012-04-16 13:45:005.2M[facility] HospitalYpafksbzgCNNYCXMDKM2936-90-02 13:45:002.9[facility] KRJWBMDYFJ1267-84-23 13:45:000.4[facility] WomenOndxocxudITYOHIUHYZ6394-40-17 13:45:001.6M[facility] HospitalKvqgucnmlHHWUJDZLEF1945-34-51 13:45:006.4[facility] WomenRqepzhkqtQVEPUUVJVG2583-36-69 13:45:0032.6M[facility] HospitalJhaupwfceWALKAJIWZH5225-23-17 13:45:0059.0[facility] WomenURINALYSIS 2012-04-16 13:45:002[facility] WomenAjofoppcdPXTMIDTULS2038-08-94 13:45:002[facility] NLJXARXTZP8486-01-58 13:45:00Few /LPF *NA*(04/16/2012 08:45:00) [facility] HODQVGGDHM8601-93-11 13:45:00Occasional /HPF *NA*(04/16/2012 08:45:00) [facility] WomenRaediurnvDUJTIEBLWR2265-45-72 13:45:006.0[facility] WomenJcwggtgljNNHDCGRHTT4487-22-24 13:45:001.014[facility] WomenZymjtndgzSLLBKGIJCF6269-68-79 13:45:00Slight *ABN*(04/16/2012 08:45:00) [facility] WomenRqbimrxtzWDFXLMVEAB8699-63-68 13:45:00Negative *NA*(04/16/2012 08:45:00) [facility] WomenCrcucpetkZXCMXYYOFX6651-02-42 13:45:00Negative mg/dL *NA*(04/16/2012 08:45:00) [facility] WomenZtfdsehqpNXMQZRKTBQ7572-78-53 13:45:00Negative mg/dL *NA*(04/16/2012 08:45:00) [facility] WomenJhnlfsbwtGXDZQMRWDC7464-04-89 13:45:00Trace *ABN*(04/16/2012 08:45:00) [facility] WomenDurvbnziuVJCNHHTOMS2690-97-50 13:45:00Negative (04/16/2012 08:45:00) [facility]NppwgnilbVGGKLZMBVJ8729-55-98 13:45:00Moderate *ABN*(04/16/2012 08:45:00) [facility] WomenTdgjnlxkpOSPXHRTJJI5041-14-79 13:45:00Negative mg/dL (04/16/2012 08:45:00) [facility] WomenDzqwmniakMRXASSWZXX1362-82-18 13:43:00Negative (04/16/2012 08:43:00) [facility] WomenLeyjtkpgmLYKQSKFLDE3752-76-68 13:43:00Negative (04/16/2012 08:43:00) [place] [address]UfhsgkywnCPWMU3343-65-49 01:45:00Negative (11/09/2011 19:45:00) VwigdcjzdCVLXXMJEV8913-47-06 20:11:89601EP SoutheastCHEMISTRY 2011-10-15 20:11:0060 RkjwzqjlrIQYKHCTSI0194-59-59 20:11:008.7[facility] GBXROUIVT9892-54-27 20:11:007.6M WtthknrqfPNYBLSFNH9979-69-13 20:11:003.8[facility] WomenCzjrtifilIRWWNDREX4768-26-36 20:11:0024[facility] WomenGrfvtkxyyPKYFAOVXQ0406-35-15 20:11:00 17 HtmlotqpjBVCIXGCMA9944-72-94 20:11:000.3M HkczuwbgnGWEARTJPI4553-25-03 20:11:49494TV VwdvenuguRZKIIRAMI9611-16-41 20:11:004.1M [facility]CHEMISTRY 2011-10-15 20:11:66546PO XjogustjjSKVYRKPNS4423-51-07 20:11:000.7[facility] GMROLUGHW9256-26-88 20:11:0076 NbaqeseogENWHRSUJI3896-86-68 20:11:0012 MiwmerzrkIBGUVGEKM3516-66-50 20:11:0024 QleuhgxvtLLTRSAPKF5875-26-08 20:11:00 3.8 HujqngzpaWKDYKDTLL2691-97-35 20:11:001.0 AbpiricztGGOJUDIEG6559-35-32 20:11:0017 MipzugofqYTZMMHWYO0678-50-01 20:11:0014.1M [facility]CHEMISTRY 2011-10-15 20:11:0025 YmpxshgonVOXOIRHET0074-19-18 20:11:00Negative *NA*(10/15/2011 14:11:00) SefwfyutbFEWRJYJNYR1448-09-81 20:11:000.1M IzyzwglobHGIVZEFCMG5073-61-15 20:11:0029.5 SpmdtxeyuWNHBJFEYGA1749-32-99 20:11:0062.2M VmyxgischNFZUALPOGC8359-73-35 20:11:007.0 [facility]HEMATOLOGY 2011-10-15 20:11:003.3M FsdbzpesyKFTUOQLZES9830-96-55 20:11:001.2[facility] CKDPAEAVZN1394-59-47 20:11:002.1M HotvyfiujAZUTYIICWC0423-13-80 20:11:005.0 EpnluzoyjPRECCZUMID1097-88-05 20:11:000.2M LxywpymqqLHYDYPQUFO9469-45-40 20:11:000.6M SkbefxmxyIMHXRBVFST6555-75-48 20:11:64922PP [facility]HEMATOLOGY 2011-10-15 20:11:009.2M PsvpwyjliWEFXOMPTBH6411-95-45 20:11:0014.0[facility] TKJZNTGHHN9058-84-91 20:11:0013.2M IueukgrsyALWYSVHMWX0646-95-85 20:11:0033.9[facility] WomenKtkpkjbdbOLTFYKBKUV0672-10-09 20:11:00* Test Item Value Reference Range Interpretation Comments MCH (test code = MCH) 28.3 pg 27.0-31.0 N BegholpwqYOYVCBMNMI6261-08-85 20:11:0083.4 OtrichbkqMYSPXNRRZW4749-34-49 20:11:0038.9 IlljmpzvrDBYDTPQTFF9450-91-84 20:11:004.67 [facility] 2011-10-15 20:11:0011.3M UykzgbjteACVGVWSNNE8364-25-71 20:11:00Few /LPF (10/15/2011 14:11:00) [facility] WomenWzdkskfrbRZXAJLOIJR8622-75-10 20:11:00Many /HPF *ABN*(10/15/2011 14:11:00) [facility]YkwzoynjaZKZFJQOZFG0255-73-48 20:11:00Rare /LPF (10/15/2011 14:11:00) [facility] HospitalMtfzzojixKPHTIAQTPD8014-41-28 20:11:00Performed (10/15/2011 14:11:00) [facility] HospitalEazwpzxuzYGTAFQZNXS2147-46-51 20:11:00Moderate /HPF (10/15/2011 14:11:00) [facility] HospitalItnyqgxqjRJAFNXKPBA0766-06-92 20:11:000-2 /HPF (10/15/2011 14:11:00) [facility] HospitalMrwuzutugMUBEPBDCMP3664-15-43 20:11:0051-100 /HPF *ABN*(10/15/2011 14:11:00) [facility] HospitalWgajixazvJFYOYHPPEX1526-37-79 20:11:00Negative (10/15/2011 14:11:00) [facility] HospitalJeubjbghzJNXZRSZUEL0577-74-05 20:11:00Positive *ABN*(10/15/2011 14:11:00) [facility] HospitalQyfcwxazgFUYDIDXNPW1894-86-46 20:11:000.2M[facility] CenterJqvdvsezkSFLLRRYIOM1793-68-37 20:11:00Negative *NA*(10/15/2011 14:11:00) [facility] HospitalIsaapellrLTQHMVEADJ2401-85-97 20:11:00Negative *NA*(10/15/2011 14:11:00) [facility] HospitalTcczsghutWXUUNCIMYQ0402-58-79 20:11:00Negative (10/15/2011 14:11:00) [facility] HospitalAabdguuhsHUYKAFZOOF0261-20-93 20:11:00Negative (10/15/2011 14:11:00) [facility] HospitalHbeksprciPVBWYJTTWP9094-83-25 20:11:00>=1.030 *ABN*(10/15/2011 14:11:00) [facility] HospitalPbelfoclxGCPRCKJQOU2767-36-25 20:11:00Large *ABN*(10/15/2011 14:11:00) [facility] HospitalRukjsfpryIORYAQISKF7127-83-50 20:11:00Yellow *NA*(10/15/2011 14:11:00) [facility] HospitalDwkolbvydVPFXDCSPTC4370-55-39 20:11:00* Test Item Value Reference Range Interpretation Comments UA pH (test code = UA pH) 5.0 1 5.0-8.0 N [facility] HospitalKckdqdchcEUEHKCSDDS5038-70-20 20:11:00Slight Cloudy (10/15/2011 14:11:00) OMEGA Mccullough
[2020-02-02] MEDS ORDERED: ASPIRIN 81 MG CHEW TAB PO ONE (16:15)
[2020-02-02 16:45] LABS: BASOPHILS # (AUTO) 0.1 (0.0-0.1); BASOPHILS % 0.6 % (0.0-1.0); EOSINOPHILS # (AUTO) 0.2 (0.0-0.4); EOSINOPHILS % 2.3 % (0.0-6.0); HEMATOCRIT 37.5 % (34.2-44.1); HEMOGLOBIN 11.3 g/dL (12.0-16.0); LYMPHOCYTES # (AUTO) 2.4 (1.0-3.2); LYMPHOCYTES % 28.9 % (18.0-39.1); MEAN CORPUSCULAR HEMOGLOBIN 22.6 pg (28-32); MEAN CORPUSCULAR HGB CONC 30.1 g/dL (31-35); MEAN CORPUSCULAR VOLUME 75.2 fL (81-99); MONOCYTES # (AUTO) 0.4 (0.2-0.8); NEUTROPHILS # (AUTO) 5.2 (2.1-6.9); NEUTROPHILS % 62.7 % (38.7-80.0); PLATELET COUNT 385 x10e3/uL (140-360); RED BLOOD COUNT 4.99 x10e6/uL (3.6-5.1); RED CELL DISTRIBUTION WIDTH 16.6 % (11.7-14.4)
--- NOTE | 2020-02-02 16:51 | Diagnostic Imaging Report ---
Examination: Single AP view of the chest. COMPARISON: Chest 2 views 12/13/2019 INDICATION: Shortness of breath, back pain IMPRESSION: 1. Lines and Tubes: None 2. Lungs are grossly clear. No consolidation or effusion. 3. Cardiomediastinal silhouette is normal. Pulmonary vasculature is normal. 4. No acute bony abnormalities. Signed by: Dr. Kelechi Thomas M.D. on 02/02/2020 4:47 PM
[2020-02-02 16:57] LABS: INR 0.89; PROTHROMBIN TIME 12.6 seconds (11.9-14.5)
[2020-02-02 16:58] LABS: PARTIAL THROMBOPLASTIN TIME 29.7 seconds (23.8-35.5)
[2020-02-02 17:01] LABS: CLARITY,URINE SL CLOUDY (CLEAR); COLOR,URINE YELLOW (YELLOW); LEUKOCYTE ESTERASE ,URINE SMALL (NEGATIVE); NITRITE,URINE NEGATIVE (NEGATIVE)
[2020-02-02 17:02] LABS: AMPHETAMINES SCREEN,URINE NEGATIVE (NEGATIVE); BENZODIAZEPINES SCREEN,URINE NEGATIVE (NEGATIVE); KETONES,URINE TRACE (NEGATIVE); PHENCYCLIDINE SCREEN,URINE NEGATIVE (NEGATIVE); PROTEIN,URINE DIPSTICK NEGATIVE (NEGATIVE)
[2020-02-02 17:03] LABS: BILIRUBIN,URINE NEGATIVE (NEGATIVE); URINE UROBILINOGEN 0.2 mg/dL (0.2 - 1)
[2020-02-02 17:04] LABS: PREGNANCY TEST, URINE NEGATIVE (NEGATIVE)
[2020-02-02 17:05] LABS: AMORPHOUS SEDIMENT,URINE FEW (FEW); BACTERIA,URINE MODERATE /HPF; EPITHELIAL CELLS,URINE MODERATE /LPF; TRANSITIONAL EPI CELLS,URINE FEW
[2020-02-02 17:07] LABS: ALANINE AMINOTRANSFERASE 13 IU/L (0-55); ALBUMIN 3.5 g/dL (3.5-5.0); ALBUMIN/GLOBULIN RATIO 0.9 (0.8-2.0); ALKALINE PHOSPHATASE 80 IU/L (40-150); ANION GAP 14.6 mmol/L (8-16); BLOOD UREA NITROGEN 12 mg/dL (7-26); BUN/CREATININE RATIO 15 (6-25); CALCIUM 8.8 mg/dL (8.4-10.2); CARBON DIOXIDE 20 mmol/L (22-29); CHLORIDE 106 mmol/L (98-107); CREATINE KINASE 49 IU/L (29-168); EST GLOMERULAR FILTRATION RATE > 60 ML/MIN (60-); GLUCOSE 216 mg/dL (74-118); POTASSIUM 3.6 mmol/L (3.5-5.1); SODIUM 137 mmol/L (136-145)
[2020-02-02] MEDS ORDERED: MACROBID 100 M100 MG PO (17:27)
[2020-02-02] MEDS ORDERED: LIDOCAINE 4% PATCH TP ONE (17:30)
--- NOTE | 2020-02-02 17:41 | Emergency Department Note ---
History of Present Illnes History of Present Illness Chief Complaint: General Medicine Complaints History of Present Illness This is a 34 year old female . Chief Complaint Comment had shortness of breath during intercourse x2 days, also has had weakness for the last week, also started with pain 20 inutes prior to arrival to mid back that radiated down her left arm. Historian: Patient Arrival Mode: Car Onset (how long ago): day(s) (2 days) Location: mid back pain Quality: mod Radiation: non-radiation, back, neck, extremity, abdomen, periumbilical, flank, proximal, distal, other Severity: moderate Onset quality: gradual Duration (how long): day(s) (2 days) Timing of current episode: constant Progression: unchanged Context: recent illness, recent surgery, recent immobilization, recent travel, trauma/injury, new medications, hx of DVT/PE, non-compliance w/ medications, other Relieving factors: none Exacerbating factors: none Past Medical/Family History Physician Review I have reviewed the patient's past medical and family history. Any updates have been documented here. Past Medical History Recent Fever: No Clinical Suspicion of Infectio: No New/Unexplained Change in Ment: No Past Medical History: Diabetes, Asthma Other Medical History: HYPOGLYCEMIA OBESITY CAFFINE CAUSES PALPATATIONS Past Surgical History: Cholecysctectomy Other Surgery: ETOPIC PREG Social History Smoking Cessation: Never Smoker Counseling Performed: No Alcohol Use: None Any Illegal Drug Use: No TB Exposure/Symptoms: No Physically hurt or threatened: No Other Last Tetanus: UNKNOWN Any Pre-Existing Lines (PICC,: No Is patient up to date on immun: Yes Last Flu: UTD Last Pneumovax: UTD Review of Systems Review of Systems Constitutional: no symptoms EENTM: no symptoms Cardiovascular: no symptoms Respiratory: dyspnea Gastrointestinal: no symptoms Genitourinary: no symptoms Musculoskeletal: back pain Neurological: no symptoms Psychological: no symptoms Endocrine: no symptoms Hematological/Lymphatic: no symptoms Review of other systems All other systems reviewed and negative. Physical Exam Related Data Allergies: Coded Allergies: hydrocodone (Verified Allergy, Intermediate, 12/15/19) butorphanol (Verified Allergy, Mild, 12/15/19) ciprofloxacin (Verified Allergy, Mild, 12/15/19) erythromycin base (Verified Allergy, Mild, 12/15/19) nitrous oxide (Verified Allergy, Mild, 12/15/19) promethazine (Verified Allergy, Mild, 07/05/18) aspirin (Verified Allergy, Unknown, 05/16/19) Triage Vital Signs Vital Signs Date Time Temp Pulse Resp B/P (MAP) Pulse Ox O2 Delivery O2 Flow Rate FiO2 02/02/20 15:49 97.8 89 16 125/73 99 Vital signs reviewed: Yes Physical Exam CONSTITUTIONAL Constitutional: well-developed, well-nourished HENT HENT: normocephalic, atraumatic, oropharynx clear/moist, nose normal HENT L/R: left ext ear normal, right ext ear normal EYES Eyes: PERRL, conjunctivae normal NECK Neck: ROM normal PULMONARY Pulmonary: effort normal, breath sounds normal; respiratory distress, rales, rhonchi, chest tenderness CARDIOVASCULAR Cardiovascular: regular rhythm, heart sounds normal, capillary refill normal, normal rate GASTROINTESTINAL Abdominal: soft, nontender, bowel sounds normal GENITOURINARY Genitourinary: exam deferred SKIN Skin: warm, dry MUSCULOSKELETAL Musculoskeletal: tenderness (mid back ttp ) NEUROLOGICAL Neurological: alert, oriented x 3, no gross motor or sensory deficits PSYCHOLOGICAL Psychological: mood/affect normal, judgement normal Exam - additional comments pt concern has blood clot and of heart problem Results Laboratory Result Diagram: 02/02/20 1600 02/02/20 1600 Laboratory Laboratory Tests Test 02/02/20 16:00 White Blood Count 8.34 x10e3/uL (4.8-10.8) Red Blood Count 4.99 x10e6/uL (3.6-5.1) Hemoglobin 11.3 g/dL (12.0-16.0) Hematocrit 37.5 % (34.2-44.1) Mean Corpuscular Volume 75.2 fL (81-99) Mean Corpuscular Hemoglobin 22.6 pg (28-32) Mean Corpuscular Hemoglobin Concent 30.1 g/dL (31-35) Red Cell Distribution Width 16.6 % (11.7-14.4) Platelet Count 385 x10e3/uL (140-360) Neutrophils (%) (Auto) 62.7 % (38.7-80.0) Lymphocytes (%) (Auto) 28.9 % (18.0-39.1) Monocytes (%) (Auto) 5.0 % (4.4-11.3) Eosinophils (%) (Auto) 2.3 % (0.0-6.0) Basophils (%) (Auto) 0.6 % (0.0-1.0) Neutrophils # (Auto) 5.2 (2.1-6.9) Lymphocytes # (Auto) 2.4 (1.0-3.2) Monocytes # (Auto) 0.4 (0.2-0.8) Eosinophils # (Auto) 0.2 (0.0-0.4) Basophils # (Auto) 0.1 (0.0-0.1) Absolute Immature Granulocyte (auto 0.04 x10e3/uL (0-0.1) Prothrombin Time 12.6 seconds (11.9-14.5) Prothromb Time International Ratio 0.89 Activated Partial Thromboplast Time 29.7 seconds (23.8-35.5) D-Dimer Quantitative (PE/DVT) 0.29 ug/mLFEU (0.00-0.45) Urine Color Yellow (YELLOW) Urine Clarity Sl cloudy (CLEAR) Urine pH 5.5 (5 - 7) Urine Specific [place] 1.030 (1.010-1.025) Urine Protein Negative (NEGATIVE) Urine Glucose (UA) 1+ (NEGATIVE) Urine Ketones Trace (NEGATIVE) Urine Blood Large (NEGATIVE) Urine Nitrite Negative (NEGATIVE) Urine Bilirubin Negative (NEGATIVE) Urine Urobilinogen 0.2 mg/dL (0.2 - 1) Urine Leukocyte Esterase Small (NEGATIVE) Urine RBC 6-10 /HPF (0-5) Urine WBC 11-20 /HPF (0-5) Urine Epithelial Cells Moderate /LPF (NONE) Urine Transitional Epithelial Cells Few (NONE) Urine Amorphous Sediment Few (FEW) Urine Bacteria Moderate /HPF (NONE) Urine Sperm Present (NONE) Urine Test Negative (NEGATIVE) Sodium Level 137 mmol/L (136-145) Potassium Level 3.6 mmol/L (3.5-5.1) Chloride Level 106 mmol/L (98-107) Carbon Dioxide Level 20 mmol/L (22-29) Anion Gap 14.6 mmol/L (8-16) Blood Urea Nitrogen 12 mg/dL (7-26) Creatinine 0.80 mg/dL (0.57-1.11) Estimat Glomerular Filtration Rate > 60 ML/MIN (60-) BUN/Creatinine Ratio 15 (6-25) Glucose Level 216 mg/dL (74-118) Calcium Level 8.8 mg/dL (8.4-10.2) Total Bilirubin 0.4 mg/dL (0.2-1.2) Aspartate Amino Transf (AST/SGOT) 14 IU/L (5-34) Alanine Aminotransferase (ALT/SGPT) 13 IU/L (0-55) Alkaline Phosphatase 80 IU/L (40-150) Creatine Kinase 49 IU/L (29-168) Creatine Kinase MB 1.00 ng/mL (0-5.0) Troponin I 0.024 ng/mL (0-0.300) B-Type Natriuretic Peptide 44.8 pg/mL (0-100) Total Protein 7.2 g/dL (6.5-8.1) Albumin 3.5 g/dL (3.5-5.0) Globulin 3.7 g/dL (2.3-3.5) Albumin/Globulin Ratio 0.9 (0.8-2.0) Urine Opiates Screen Negative (NEGATIVE) Urine Methadone Screen Negative (NEGATIVE) Urine Barbiturates Screen Negative (NEGATIVE) Urine Phencyclidine Screen Negative (NEGATIVE) Urine Amphetamines Screen Negative (NEGATIVE) Urine Methamphetamines Screen Negative (NEGATIVE) Urine Benzodiazepines Screen Negative (NEGATIVE) Urine Cocaine Screen Negative (NEGATIVE) Urine Cannabinoids Screen Negative (NEGATIVE) Laboratory Tests Test 02/02/20 16:00 White Blood Count 8.34 x10e3/uL (4.8-10.8) Red Blood Count 4.99 x10e6/uL (3.6-5.1) Hemoglobin 11.3 g/dL (12.0-16.0) Hematocrit 37.5 % (34.2-44.1) Mean Corpuscular Volume 75.2 fL (81-99) Mean Corpuscular Hemoglobin 22.6 pg (28-32) Mean Corpuscular Hemoglobin Concent 30.1 g/dL (31-35) Red Cell Distribution Width 16.6 % (11.7-14.4) Platelet Count 385 x10e3/uL (140-360) Neutrophils (%) (Auto) 62.7 % (38.7-80.0) Lymphocytes (%) (Auto) 28.9 % (18.0-39.1) Monocytes (%) (Auto) 5.0 % (4.4-11.3) Eosinophils (%) (Auto) 2.3 % (0.0-6.0) Basophils (%) (Auto) 0.6 % (0.0-1.0) Neutrophils # (Auto) 5.2 (2.1-6.9) Lymphocytes # (Auto) 2.4 (1.0-3.2) Monocytes # (Auto) 0.4 (0.2-0.8) Eosinophils # (Auto) 0.2 (0.0-0.4) Basophils # (Auto) 0.1 (0.0-0.1) Absolute Immature Granulocyte (auto 0.04 x10e3/uL (0-0.1) Prothrombin Time 12.6 seconds (11.9-14.5) Prothromb Time International Ratio 0.89 Activated Partial Thromboplast Time 29.7 seconds (23.8-35.5) D-Dimer Quantitative (PE/DVT) 0.29 ug/mLFEU (0.00-0.45) Urine Color Yellow (YELLOW) Urine Clarity Sl cloudy (CLEAR) Urine pH 5.5 (5 - 7) Urine Specific [place] 1.030 (1.010-1.025) Urine Protein Negative (NEGATIVE) Urine Glucose (UA) 1+ (NEGATIVE) Urine Ketones Trace (NEGATIVE) Urine Blood Large (NEGATIVE) Urine Nitrite Negative (NEGATIVE) Urine Bilirubin Negative (NEGATIVE) Urine Urobilinogen 0.2 mg/dL (0.2 - 1) Urine Leukocyte Esterase Small (NEGATIVE) Urine RBC 6-10 /HPF (0-5) Urine WBC 11-20 /HPF (0-5) Urine Epithelial Cells Moderate /LPF (NONE) Urine Transitional Epithelial Cells Few (NONE) Urine Amorphous Sediment Few (FEW) Urine Bacteria Moderate /HPF (NONE) Urine Sperm Present (NONE) Urine Test Negative (NEGATIVE) Sodium Level 137 mmol/L (136-145) Potassium Level 3.6 mmol/L (3.5-5.1) Chloride Level 106 mmol/L (98-107) Carbon Dioxide Level 20 mmol/L (22-29) Anion Gap 14.6 mmol/L (8-16) Blood Urea Nitrogen 12 mg/dL (7-26) Creatinine 0.80 mg/dL (0.57-1.11) Estimat Glomerular Filtration Rate > 60 ML/MIN (60-) BUN/Creatinine Ratio 15 (6-25) Glucose Level 216 mg/dL (74-118) Calcium Level 8.8 mg/dL (8.4-10.2) Total Bilirubin 0.4 mg/dL (0.2-1.2) Aspartate Amino Transf (AST/SGOT) 14 IU/L (5-34) Alanine Aminotransferase (ALT/SGPT) 13 IU/L (0-55) Alkaline Phosphatase 80 IU/L (40-150) Creatine Kinase 49 IU/L (29-168) Creatine Kinase MB 1.00 ng/mL (0-5.0) Troponin I 0.024 ng/mL (0-0.300) B-Type Natriuretic Peptide 44.8 pg/mL (0-100) Total Protein 7.2 g/dL (6.5-8.1) Albumin 3.5 g/dL (3.5-5.0) Globulin 3.7 g/dL (2.3-3.5) Albumin/Globulin Ratio 0.9 (0.8-2.0) Urine Opiates Screen Negative (NEGATIVE) Urine Methadone Screen Negative (NEGATIVE) Urine Barbiturates Screen Negative (NEGATIVE) Urine Phencyclidine Screen Negative (NEGATIVE) Urine Amphetamines Screen Negative (NEGATIVE) Urine Methamphetamines Screen Negative (NEGATIVE) Urine Benzodiazepines Screen Negative (NEGATIVE) Urine Cocaine Screen Negative (NEGATIVE) Urine Cannabinoids Screen Negative (NEGATIVE) Lab results reviewed: Yes Imaging Impressions Procedure: [id number] DX/CHEST SINGLE (PORTABLE) Exam Date: 02/02/20 Exam Time: 1620 REPORT STATUS: Signed Examination: Single AP view of the chest. COMPARISON: Chest 2 views 12/13/2019 INDICATION: Shortness of breath, back pain IMPRESSION: 1. Lines and Tubes: None 2. Lungs are grossly clear. No consolidation or effusion. 3. Cardiomediastinal silhouette is normal. Pulmonary vasculature is normal. 4. No acute bony abnormalities. Signed by: Dr. Bill Thomas M.D. on 02/02/2020 4:47 PM Dictated By: BILL THOMAS MD [id number] Transcribed By: LC on 02/02/20 1647 Imaging Comments duplex us - neg for dvt Procedures 12 Lead ECG Interpretation Veterinary Medicine Scientist: Interpreted by ED physician Date: February 02, 2020 Time: 17:42 Prior PREBOARDER tracings: reviewed Rhythm: sinus rhythm Rate: bradycardia BPM: 59 QRS axis: normal ST segments normal: Yes T waves normal: Yes Clinical Impression: normal ECG Critical Care Time Subsequent provider I assumed direction of critical care for this patient from another provider of my specialty. 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 f/u w/ pcp in 1-2 days w/o fail 2. return to ed as needed 3. tylenol and motrin as needed 4. macrobid Depart Disposition: HOME, SELF-CARE Last Vital Signs Date Time Temp Pulse Resp B/P (MAP) Pulse Ox O2 Delivery O2 Flow Rate FiO2 02/02/20 15:49 97.8 89 16 125/73 99 Home Meds Active Scripts Nitrofurantoin Monohyd/M-Cryst (MACROBID 100 MG CAPSULE) 100 Mg Capsule, 100 MG PO BIDWM for 20 Days, CAP Prov:KAYLA KARIMI, 02/02/20 Fluconazole (DIFLUCAN) 150 Mg Tablet, 150 MG PO DAILY for yeast infection for 3 Days, #3 TAB 0 Refills Prov:ZACKARY REILLY MD 01/05/20 Metformin Hcl (METFORMIN HCL) 500 Mg Tablet, 1000 MG PO BID, #60 TAB Prov:RISHABH GARCIA RETAIL ACCOUNT MANAGER 06/16/18 Butalbital/Aspirin/Caffeine (FIORINAL 50-325-40 MG CAPSULE) 1 Each Capsule, 2 CAP PO Q4H PRN for HEADACHE, #20 CAP Prov:RISHABH GARCIA RETAIL ACCOUNT MANAGER 06/16/18 Medications in the ED Aspirin 81 mg PRN ONCE PO ; Start 02/02/20 at 16:15; Stop 02/02/20 at 16:16; Status UNV Lidocaine 1 ea ONCE ONCE TP ; Start 02/02/20 at 17:30; Stop 02/02/20 at 17:31 KAYLA KARIMI DO February 02, 2020 17:41
== END 2020-02-02 17:49 | disposition home or self-care (01) ==
LOC: ER 15:43
DX: R06.00 Dyspnea, unspecified (principal); M79.18 Myalgia, other site; N39.0 Urinary tract infection, site not specified; E11.65 Type 2 diabetes mellitus with hyperglycemia; M54.89 Other dorsalgia
CPT/HCPCS: 36415; 71045; 80053; 80307; 81001; 81025; 82550; 82553; 83880; 84484; 85025; 85379; 85610; 85730; 87086; 93005; 93971; 99284

== ENCOUNTER 2020-02-28 09:24 | Emergency (ER) | payer MEDICARE ==
[~2020-02-28] VITALS: Ht 160 cm; Wt 90.7 kg
[~2020-02-28 09:24] MED LIST changes: +MACROBID 100 M100 MG PO
--- NOTE | 2020-02-28 09:25 | NUR ---
PATIENT SITTING IN NO DISTRESS, RESP EVEN AND NONLABORED, PLAYING ON CELL PHONE; PATIENT STATING "I NEED TO GO NUMBER 2", INFORMED PATIENT THAT WE WOULD GET HER A BEDSIDE COMMODE. PATIENT UNCOOPERATIVE WITH TRIAGE, REFUSING TO WEAR HER MASK. PATIENT STATES THAT SHE HAD BEEN IN CONTACT WITH A KNOWN POSITIVE COVID PATIENT, AND THAT SHE WAS HERE FOR "QUICKER" TESTING. PATIENT STATES THAT SHE WAS TESTED ON SUNDAY, BUT HAS NOT GOTTEN HER RESULTS BACK YET. PATIENT STATES THAT SHE HAS INCREASED SHORTNESS OF BREATH AND DIARRHEA SINCE YESTERDAY. PATIENT APPEARS IN NO DISTRESS, SPEAKING IN FULL SENTENCES, AMBULATORY WITHOUT ASSISTANCE. PATIENT O2 SATS 99% ON ROOM AIR, TEMP 99.1. DR KARIMI PRESENT DURING TRIAGE TO DISCUSS PLAN OF CARE AND EXPECTATIONS; PATIENT STATED THAT SHE DID NOT WANT ANOTHER COVID SWAB, AND WOULD BE FINE WITH A CHEST XRAY TO MAKE SURE THAT SHE WAS NOT GETTING WORSE. AT NEXT ENTRY INTO THE ROOM, PATIENT DEMANDING ADDITIONAL BLOOD WORK, IV FLUIDS, AND A NEBULIZER TREATMENT. WHEN PATIENT INFORMED THAT NEBULIZER TREATMENT WAS NOT RECOMMENDED IN POTENTIAL COVID PATIENTS DUE TO RISK ON AEROSILIZATION. PATIENT WAS OFFERED A METERED DOSE INHALER, BUT REFUSED STATING "I HAVE THAT AT HOME".
[2020-02-28] MEDS ORDERED: AZITHROMYCIN250 MG PO (09:47)
--- NOTE | 2020-02-28 09:56 | NUR ---
patient requested breathing treatment. informed ER md of patient request. ER md in room and discussed that patients breathing was not labored and that oxygen saturation was 99% on room air and that nebulizing treatments risk spreading the virus. ER md made patient aware that a nebulizer would not be ordered at this time. patient became aggitated and spoke with aggressive tone towards ER md and stated that she just wanted to leave. expressed to patient that chest Xray would be evaluated and dispo would follow.
--- NOTE | 2020-02-28 10:06 | NUR ---
this nurse went in to speak with patient. another nurse was in the room with patient. patient asked why were we not doing blood work like was done with her family that came in. attempted to explain that each patient is assessed byt the ER md and orders are entered accordingly. when expressed that not everyone that has a virus experiences the same symptoms, the patient stopped this nurse from speaking and stated that she only wanted to speak to one nurse then asked this nurse to leave the room.
--- NOTE | 2020-02-28 10:16 | Diagnostic Imaging Report ---
EXAMINATION: CHEST SINGLE (PORTABLE) INDICATION: ^Y ^COVID ^[id number] ^0920 COMPARISON: 12/13/2019 FINDINGS: AP view TUBES and LINES: None. LUNGS: Lungs are well inflated. Lungs are clear. There is no evidence of pneumonia or pulmonary edema. PLEURA: No pleural effusion or pneumothorax. HEART AND MEDIASTINUM: The cardiomediastinal silhouette is unremarkable. BONES AND SOFT TISSUES: No acute osseous lesion. Soft tissues are unremarkable. UPPER ABDOMEN: No free air under the diaphragm. IMPRESSION: No acute thoracic radiographic abnormality. Signed by: Darrius Robles MD on 02/28/2020 10:13 AM
[2020-02-28] MEDS ORDERED: SODIUM CHLORIDE 0.9% 1000ML 1,000 ML IV STA (10:31)
--- NOTE | 2020-02-28 10:41 | Emergency Department Note ---
History of Present Illnes History of Present Illness Chief Complaint: COVID PUI History of Present Illness This is a 34 year old female arrives to the ED with concerns of Covid symptoms. Patient states she has multiple family members who tested positive and is concerned she may spread it to her family. Patient admits to residing with her 3 children and , all of them have been showing signs and symptoms include cough and low-grade temps. Patient denies any shortness of breath at [facility] she does not know how to proceed . Chief Complaint Comment PATIENT IN FROM HOME WITH COMPLAINTS OF FEVER, SHORTNESS OF BREATH, AND DIARRHEA FOR THE LAST 2-3 DAYS; STATES WAS SEEN AND HAD COVID TESTING DONE ON SUNDAY BUT DOES NOT HAVE THE RESULTS YET, AND HAS HAD CONTACT WITH SOMEONE THAT WAS CONFIRMED POSITIVE. PATIENT APPEARS IN NO DISTRESS, RESP EVEN AND NONLABORED, TEMP 99.1, O2 SATS 99% ON ROOM AIR. 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 Any updates have been documented here. Past Medical History Recent Fever: Yes Clinical Suspicion of Infectio: Yes New/Unexplained Change in Ment: No Past Medical History: Diabetes, Asthma Other Medical History: HYPOGLYCEMIA OBESITY CAFFINE CAUSES PALPATATIONS Past Surgical History: Cholecysctectomy Other Surgery: ECTOPIC PREG Social History Smoking Cessation: Never Smoker Counseling Performed: No Alcohol Use: None Any Illegal Drug Use: No TB Exposure/Symptoms: No Physically hurt or threatened: No Family History Family history of heart diseas: No Other Last Tetanus: UNKNOWN Any Pre-Existing Lines (PICC,: No Is patient up to date on immun: Yes Last Flu: utd Last Pneumovax: utd Review of Systems Review of Systems Constitutional: Reports as per HPI, Reports fever, Reports malaise EENTM: Reports no symptoms Cardiovascular: Reports no symptoms Respiratory: Reports as per HPI, Reports cough Gastrointestinal: Reports no symptoms Genitourinary: Reports no symptoms Musculoskeletal: Reports no symptoms Integumentary: Reports no symptoms Neurological: Reports no symptoms Psychological: Reports no symptoms Endocrine: Reports no symptoms Hematological/Lymphatic: Reports no symptoms Physical Exam Related Data Allergies: Coded Allergies: hydrocodone (Verified Allergy, Intermediate, 02/28/20) butorphanol (Verified Allergy, Mild, 02/28/20) ciprofloxacin (Verified Allergy, Mild, 02/28/20) erythromycin base (Verified Allergy, Mild, 02/28/20) nitrous oxide (Verified Allergy, Mild, 02/28/20) promethazine (Verified Allergy, Mild, 02/28/20) aspirin (Verified Allergy, Unknown, 02/28/20) Triage Vital Signs Vital Signs Date Time Temp Pulse Resp B/P (MAP) Pulse Ox O2 Delivery O2 Flow Rate FiO2 02/28/20 09:25 99.1 93 20 111/65 99 Vital signs reviewed: Yes Physical Exam CONSTITUTIONAL Constitutional: Present well-developed, Present well-nourished HENT HENT: Present normocephalic, Present atraumatic, Present oropharynx clear /moist, Present nose normal HENT L/R: Present left ext ear normal, Present right ext ear normal EYES Eyes: Reports PERRL, Reports conjunctivae normal NECK Neck: Present ROM normal PULMONARY Pulmonary: Present effort normal, Present breath sounds normal CARDIOVASCULAR Cardiovascular: Present regular rhythm, Present heart sounds normal, Present capillary refill normal, Present normal rate GASTROINTESTINAL Abdominal: Present soft, Present nontender, Present bowel sounds normal GENITOURINARY Genitourinary: Present exam deferred SKIN Skin: Present warm, Present dry MUSCULOSKELETAL Musculoskeletal: Present ROM normal NEUROLOGICAL Neurological: Present alert, Present oriented x 3, Present no gross motor or sensory deficits PSYCHOLOGICAL Psychological: Present mood/affect normal, Present judgement normal Assessment & Plan Medical Decision Making MDM 34-year-old well-appearing female brought to the ED with complaints of off and fever. Upon my evaluation patient speaking in full sentences in no signs of acute respiratory distress noted. Patient's oxygen saturation remained 99% at rest and on exertion. Patient's temp was 99.1, had not recently taken a ntipyretics. Patient requested an albuterol/Atrovent neb immunization treatmentspoke to patient at length that given the risk of aerosolization current guidelines are to avoid using this medication. Patient offered albuterol MDI which did not want at this time. Patient informed she would be discharged home with albuterol/Atrovent nebulization refills, patient states she does not h ome fear of exposing her family. Patient informed that she may use it in a closed space, possibly open the window and avoid having any family members to the room for 8 hours, in addition given that she has been residing with her family for several weeks it is likely the also be positive. Patient expressed understanding. Patient requested blood work as several other family members have gotten this last time she was here and also requesting IV fluids. Patient states she wishes to be admitted to the hospital as well. Spoke to patient at length about indication for IV fluids and lab work, expressed understanding that she still wishes to get fluids. Patient given a liter fluid at her insistence. Informed that studies have shown to limit IV fluids in the setting of possible worsening symptoms. Patient states she expresses understanding. All labwork imaging was discussed with the patient she is not to Neck and remained 99% on room air during her discharge. Reassessment Reassessment time: 11:39 Reassessment Patient reevaluated OX saturation remained 100% on room air, no evidence of tach ypnea. Patient informed of all lab work and imaging, patient states she wishes to go to another hospital. Spoke to the patient again and asked her to express her areas of concern. Patient states she wishes to be admitted and get more workup. When asking p atient for which further workup she feels like she is missing, patient states she wants to be admitted. Patient informed of indications for hospital admission, stated she is expressed understanding but states she just wants to go to [facility] for a second opinion. Patient informed of potential exposure risks she may have to others, states she doesn't care and once second opinion. Pt understands that she received blood work and IV fluids at her request, but still states she wants to go to [facility]. Patient discharged from the ED. Assessment & Plan Final Impression: (1) COVID-19 Depart Disposition: HOME, SELF-CARE Last Vital Signs Date Time Temp Pulse Resp B/P (MAP) Pulse Ox O2 Delivery O2 Flow Rate FiO2 02/28/20 09:25 99.1 93 20 111/65 99 Home Meds Active Scripts Azithromycin (Z-ARPIT) 250 Mg Tablet, 1 PKG PO DIRECTED, #1 PKG 0 Refills Prov:KAYLA KARIMI, DO 02/28/20 Nitrofurantoin Monohyd/M-Cryst (MACROBID 100 MG CAPSULE) 100 Mg Capsule, 100 MG PO BIDWM for 20 Days, CAP Prov:KAYLA KARIMI DO 02/02/20 Fluconazole (DIFLUCAN) 150 Mg Tablet, 150 MG PO DAILY for yeast infection for 3 Days, #3 TAB 0 Refills Prov:ZACKARY REILLY MD 01/05/20 Metformin Hcl (METFORMIN HCL) 500 Mg Tablet, 1000 MG PO BID, #60 TAB Prov:RISHABH GARCIA NP 06/16/18 Butalbital/Aspirin/Caffeine (FIORINAL 50-325-40 MG CAPSULE) 1 Each Capsule, 2 CAP PO Q4H PRN for HEADACHE, #20 CAP Prov:RISHABH GARCIA NP 06/16/18 KAYLA KARIMI DO Feb 28, 2020 10:57
[2020-02-28 10:57] LABS: BASOPHILS % 0.2 % (0.0-1.0); EOSINOPHILS % 0.2 % (0.0-6.0); HEMATOCRIT 38.2 % (34.2-44.1); HEMOGLOBIN 11.7 g/dL (12.0-16.0); LYMPHOCYTES # (AUTO) 1.1 (1.0-3.2); LYMPHOCYTES % 22.1 % (18.0-39.1); MEAN CORPUSCULAR HEMOGLOBIN 22.3 pg (28-32); MEAN CORPUSCULAR HGB CONC 30.6 g/dL (31-35); MEAN CORPUSCULAR VOLUME 72.9 fL (81-99); MONOCYTES # (AUTO) 0.3 (0.2-0.8); MONOCYTES % 6.5 % (4.4-11.3); NEUTROPHILS # (AUTO) 3.5 (2.1-6.9); NEUTROPHILS % 70.8 % (38.7-80.0); PLATELET COUNT 313 x10e3/uL (140-360); RED BLOOD COUNT 5.24 x10e6/uL (3.6-5.1); RED CELL DISTRIBUTION WIDTH 16.5 % (11.7-14.4)
[2020-02-28 11:04] LABS: ANION GAP 14.2 mmol/L (8-16); BLOOD UREA NITROGEN 12 mg/dL (7-26); BUN/CREATININE RATIO 13 (6-25); CARBON DIOXIDE 20 mmol/L (22-29); CHLORIDE 104 mmol/L (98-107); CREATININE, SERUM 0.89 mg/dL (0.57-1.11); EST GLOMERULAR FILTRATION RATE > 60 ML/MIN (60-); GLUCOSE 167 mg/dL (74-118); POTASSIUM 3.2 mmol/L (3.5-5.1); SODIUM 135 mmol/L (136-145)
[2020-02-28] MEDS ORDERED: ACETAMINOPHEN 325 MG TAB PO ONE (11:45)
[2020-02-28] MEDS ORDERED: ONDANSETRON HCL 4 MG ORAL DISINTEGRATING TAB PO ONE (11:45)
== END 2020-02-28 12:13 | disposition home or self-care (01) ==
LOC: ER 09:24
DX: R50.9 Fever, unspecified (principal); R05 Cough; U07.1 COVID-19; E11.65 Type 2 diabetes mellitus with hyperglycemia; E66.9 Obesity, unspecified
CPT/HCPCS: 36415; 71045; 80048; 85025; 99284; J7030; Q0162

== ENCOUNTER 2020-03-22 20:44 | Emergency (ER) | payer MEDICARE ==
[~2020-03-22] VITALS: Ht 160 cm; Wt 89.8 kg
[~2020-03-22 20:44] MED LIST changes: +AZITHROMYCIN250 MG PO
--- NOTE | 2020-03-22 21:30 | NUR ---
PT STATED SHE DOESNT WANT TO WAIT ANYMORE AND SHE WILL JUST FOLLOW UP WITH HER DOCTOR, I EXPLAINED TO PT THAT WE HAVE A CRITICAL PT AND THAT IN THE ER IT IS NOT FIRST COME FIRST SERVE BUT RATHER CARE IS GIVEN BASED ON ACCUITY, PT STATED SHE JUST DIDNT WANT TO WAIT
== END 2020-03-22 21:35 | disposition left against medical advice (07) ==
LOC: FSED 21:19
DX: Z53.21 Procedure and treatment not carried out due to patient leaving prior to being seen by health care provider (principal)

== ENCOUNTER 2021-07-26 17:01 | Emergency (ER) | payer MEDICARE, OTHER ==
[~2021-07-26] VITALS: Ht 160 cm; Wt 89.8 kg
[2021-07-26] MEDS ORDERED: ALBUTEROL/IPRATROPIUM 3 ML NEB NEB ONE (17:30)
[2021-07-26] MEDS ORDERED: TRAMADOL HCL 50 MG TAB PO ONE (17:30)
[2021-07-26] MEDS ORDERED: PROVENTIL HFA6.7 GM INH (18:57)
[2021-07-26] MEDS ORDERED: PREDNISONE20 MG PO (18:57)
[2021-07-26] MEDS ORDERED: ULTRAM50 MG PO (18:57)
[2021-07-26] MEDS ORDERED: ACETAMINOPHEN 325 MG TAB ONE (19:31)
== END 2021-07-26 19:29 | disposition home or self-care (01) ==
LOC: ER 17:18
DX: R06.02 Shortness of breath (principal); K04.7 Periapical abscess without sinus; E11.9 Type 2 diabetes mellitus without complications; J45.909 Unspecified asthma, uncomplicated; E66.9 Obesity, unspecified
CPT/HCPCS: 71045; 99283

== ENCOUNTER 2022-04-24 20:08 | Emergency (ER) | payer SELFPAY ==
[~2022-04-24] VITALS: Ht 160 cm; Wt 89.8 kg
[~2022-04-24 20:08] MED LIST changes: +PREDNISONE20 MG PO; +PROVENTIL HFA6.7 GM INH; +ULTRAM50 MG PO
[2022-04-24 21:34] LABS: CLARITY,URINE CLEAR (CLEAR); COLOR,URINE YELLOW (YELLOW); KETONES,URINE 2+ (NEGATIVE); LEUKOCYTE ESTERASE ,URINE TRACE (NEGATIVE); NITRITE,URINE NEGATIVE (NEGATIVE); PROTEIN,URINE DIPSTICK NEGATIVE (NEGATIVE); URINE UROBILINOGEN 0.2 mg/dL (0.2 - 1)
[2022-04-24 21:39] LABS: BACTERIA,URINE FEW /HPF; EPITHELIAL CELLS,URINE MODERATE /LPF
[2022-04-24 21:40] LABS: BASOPHILS # (AUTO) 0.1 (0.0-0.1); BASOPHILS % 0.7 % (0.0-1.0); EOSINOPHILS # (AUTO) 0.2 (0.0-0.4); EOSINOPHILS % 1.4 % (0.0-6.0); HEMATOCRIT 39.2 % (34.2-44.1); LYMPHOCYTES # (AUTO) 2.9 (1.0-3.2); LYMPHOCYTES % 27.2 % (18.0-39.1); MEAN CORPUSCULAR HEMOGLOBIN 23.1 pg (28-32); MEAN CORPUSCULAR HGB CONC 30.6 g/dL (31-35); MEAN CORPUSCULAR VOLUME 75.4 fL (81-99); MONOCYTES # (AUTO) 0.5 (0.2-0.8); MONOCYTES % 5.1 % (4.4-11.3); NEUTROPHILS # (AUTO) 6.9 (2.1-6.9); NEUTROPHILS % 65.2 % (38.7-80.0); PLATELET COUNT 404 x10e3/uL (140-360); RED CELL DISTRIBUTION WIDTH 16.8 % (11.7-14.4)
[2022-04-24 21:50] LABS: ALBUMIN 3.9 g/dL (3.5-5.0); ALBUMIN/GLOBULIN RATIO 1.1 (0.8-2.0); ANION GAP 15.8 mmol/L (8-16); CALCIUM 9.2 mg/dL (8.4-10.2); CREATININE, SERUM 0.81 mg/dL (0.57-1.11); POTASSIUM 3.8 mmol/L (3.5-5.1)
[2022-04-24] MEDS ORDERED: ONDANSETRON ODT4 MG PO (23:39)
[2022-04-24] MEDS ORDERED: ATIVAN1 MG PO (23:39)
[2022-04-24] MEDS ORDERED: CEFDINIR300 MG PO (23:39)
[2022-04-25 00:20] VITALS: BP 118/79
== END 2022-04-24 23:30 | disposition home or self-care (01) ==
LOC: ER 20:19
DX: F43.22 Adjustment disorder with anxiety (principal); N39.0 Urinary tract infection, site not specified; R51.9 Headache, unspecified
CPT/HCPCS: 36415; 80053; 81001; 81025; 85025; 99284

== ENCOUNTER 2022-09-30 16:27 | Emergency (ER) | payer MEDICARE, OTHER ==
[~2022-09-30] VITALS: Ht 160 cm; Wt 89.8 kg
[~2022-09-30 16:27] MED LIST changes: +ATIVAN1 MG PO; +CEFDINIR300 MG PO; +ONDANSETRON ODT4 MG PO
[2022-09-30 17:43] LABS: CLARITY,URINE CLEAR (CLEAR); COLOR,URINE YELLOW (YELLOW); KETONES,URINE 1+ (NEGATIVE); LEUKOCYTE ESTERASE ,URINE TRACE (NEGATIVE); NITRITE,URINE NEGATIVE (NEGATIVE); PROTEIN,URINE DIPSTICK NEGATIVE (NEGATIVE); URINE UROBILINOGEN 0.2 mg/dL (0.2 - 1)
[2022-09-30 17:53] LABS: BACTERIA,URINE MODERATE /HPF; EPITHELIAL CELLS,URINE MANY /LPF
[2022-09-30 19:19] VITALS: BP 129/82
[2022-09-30] MEDS ORDERED: BACTRIM DS TAB1 EACH PO (19:19)
== END 2022-09-30 19:25 | disposition home or self-care (01) ==
LOC: ER 16:36
DX: R30.0 Dysuria (principal); N39.0 Urinary tract infection, site not specified; R53.1 Weakness; E11.9 Type 2 diabetes mellitus without complications; J45.909 Unspecified asthma, uncomplicated; E66.9 Obesity, unspecified
CPT/HCPCS: 74176; 81001; 81025; 99283

== ENCOUNTER 2023-02-13 20:25 | Emergency (ER) | payer OTHER ==
[~2023-02-13] VITALS: Ht 160 cm; Wt 89.8 kg
[~2023-02-13 20:25] MED LIST changes: +BACTRIM DS TAB1 EACH PO
[2023-02-13] MEDS ORDERED: SODIUM CHLORIDE FLUSH 10 ML SYR IV PRN (20:45)
[2023-02-13 20:58] LABS: BASOPHILS # (AUTO) 0.1 (0.0-0.1); BASOPHILS % 0.7 % (0.0-1.0); EOSINOPHILS # (AUTO) 0.2 (0.0-0.4); EOSINOPHILS % 2.1 % (0.0-6.0); HEMATOCRIT 41.2 % (34.2-44.1); HEMOGLOBIN 13.1 g/dL (12.0-16.0); LYMPHOCYTES # (AUTO) 3.1 (1.0-3.2); LYMPHOCYTES % 34.5 % (18.0-39.1); MEAN CORPUSCULAR HEMOGLOBIN 25.9 pg (28-32); MEAN CORPUSCULAR HGB CONC 31.8 g/dL (31-35); MEAN CORPUSCULAR VOLUME 81.6 fL (81-99); MONOCYTES # (AUTO) 0.4 (0.2-0.8); MONOCYTES % 4.3 % (4.4-11.3); NEUTROPHILS # (AUTO) 5.2 (2.1-6.9); NEUTROPHILS % 58.1 % (38.7-80.0); PLATELET COUNT 389 x10e3/uL (140-360); RED BLOOD COUNT 5.05 x10e6/uL (3.6-5.1); RED CELL DISTRIBUTION WIDTH 16.9 % (11.7-14.4)
[2023-02-13 21:23] LABS: ALANINE AMINOTRANSFERASE 16 IU/L (0-55); ALBUMIN/GLOBULIN RATIO 1.1 (0.8-2.0); ALKALINE PHOSPHATASE 71 IU/L (40-150); ANION GAP 15.4 mmol/L (8-16); BLOOD UREA NITROGEN 13 mg/dL (7-26); BUN/CREATININE RATIO 17 (6-25); CALCIUM 9.9 mg/dL (8.4-10.2); CARBON DIOXIDE 22 mmol/L (22-29); CHLORIDE 103 mmol/L (98-107); CREATININE, SERUM 0.78 mg/dL (0.57-1.11); GLUCOSE 207 mg/dL (74-118); POTASSIUM 3.4 mmol/L (3.5-5.1); SODIUM 137 mmol/L (136-145)
[2023-02-13 23:00] VITALS: O2SAT 100
[2023-02-14] MEDS ORDERED: POTASSIUM CHLORIDE 20 MEQ TAB CR PO STA (00:09)
== END 2023-02-14 01:12 | disposition home or self-care (01) ==
LOC: ER 20:31
DX: R42 Dizziness and giddiness (principal); R07.9 Chest pain, unspecified; E11.65 Type 2 diabetes mellitus with hyperglycemia; J45.909 Unspecified asthma, uncomplicated; E66.9 Obesity, unspecified
CPT/HCPCS: 36415; 71046; 80053; 84484; 84702; 85025; 93005; 94760; 99284